=== PATIENT | male | born 1980 | race Caucasian/White ===

== ENCOUNTER 2018-02-03 17:42 | Inpatient (IN) | payer MEDICARE, SELFPAY ==
[2018-02-03 18:53] LABS: #Eosinphils 0.1 thou/uL (0.0-0.7); #Lymphocytes 0.9 thou/uL (1.20-3.40); #Monocytes 1.2 thou/uL (0.11-0.59); %Basophils 0.3 % (0.0-1.0); %Eosinophils 0.7 % (0.0-10.0); Hemoglobin 6.6 g/dL (14.0-18.0); Mean Corpuscular HGB CONC 33.3 g/dL (32.0-36.0); Mean Corpuscular Hemoglobin 30.7 pg (27.0-31.0); Mean Corpuscular Volume 92.1 fL (78.0-98.0); Mean Platelet Volume 8.2 fL (7.4-10.4); Platelet Count 261 thou/uL (130-400); RBC Distribution Width 14.8 % (11.5-14.5); Red Blood Cell (RBC) Count 2.15 mill/uL (4.70-6.10); White Blood Cell (WBC) Count 13.3 thou/uL (4.8-10.8)
[2018-02-03 20:01] LABS: Hemoglobin 6.3 g/dL (14.0-18.0)
[2018-02-03 20:02] LABS: Anion Gap 16 mmol/L (10-20); BUN (Urea Nitrogen) 9 mg/dL (8.9-20.6); Calc. Creatinine Clearance 0 mL/min (70-130); Carbon Dioxide 20 mmol/L (22-29); Chloride 103 mmol/L (98-107); Estimated GFR-MDRD Greater than 90; Glucose 167 mg/dL (70-105); Potassium 3.6 mmol/L (3.5-5.1); Sodium 135 mmol/L (136-145)
[2018-02-03] MEDS ORDERED: Ondansetron HCl/PF 4 MG/2 ML Vial IVP PRN (22:05)
[2018-02-03] MEDS: Mesalamine DR 400 mg Capsule PO SCH (23:18)
[2018-02-03] MEDS: Sodium Chloride 0.9% 1,000 ML IV SCH (23:19)
--- NOTE | 2018-02-04 02:47 | CON ---
DATE OF CONSULTATION: 02/03/2018 REASON FOR CONSULTATION: Probable ulcerative colitis flare. CONSULTING PHYSICIAN: Dr. Sanaz Avina. HISTORY OF PRESENT ILLNESS: The patient is a 37-year-old male with past medical history of obesity a nd ulcerative colitis presenting with complaints of increased abdominal pain, diarrhea, and intermitt ent hematochezia. The patient states that he was diagnosed with ulcerative colitis in 2006 with comp laints of increased abdominal pain, diarrhea, and intermittent occurrences of bright red blood per re ctum. Given increased suspicion for inflammatory bowel disease, he subsequently underwent a colonosc opy with endoscopic and histologic findings consistent with the diagnosis of ulcerative colitis. He was subsequently placed on iron supplementations and sulfasalazine in an attempt to treat his anemia as well as the ulcerative colitis respectively. He was on the sulfasalazine for approximately 6 year s with only a mild to modest improvement in his abdominal pain but did nothing in terms of decreasing his diarrhea frequency or the occurrences of intermittent hematochezia. He states over the last 10 years, he has had approximately 20 different separate occurrences where he has had to have blood martin sfusion as a result of blood loss related to his uncontrolled ulcerative colitis with approximately 6 0 units of PRBCs obtained during that time. He was in his usual state of health with abdominal pain, diarrhea, and hematochezia until approximately 4 days ago when he had a significant increase in the amount of bright red blood per rectum. This was characterized as hematochezia both present on the to ilet paper and within the toilet and occurring outside of episodes of passing stool. With the increa sed blood loss, he to experience increased weakness, especially in his lower extremities, shortness o f breath at rest and dyspnea on exertion which ultimately prompted him to seek healthcare assistance. He was seen in the ER in [place] and noted to have significantly decreased H&H, was given approx imately 1 unit of PRBCs and transferred to [facility] in [place] for further evaluat ion. Upon evaluation in the ER in [facility], he was again noted to have a significantly decreased H&H which was decreased from the levels obtained at the [facility] despite the infusion of 1 unit of PRBCs concerning for active bleeding. Currently, he endorses periumbilical abdominal pain c haracterized as a cramping type sensation radiating to the left and right mid abdominal regions. It is intermittent and will reach a severity of approximately 2-4/10. The pain is worse with increased coughing and sneezing, but better with having a bowel movement or passing flatus. He also endorses i ncreased nausea and vomiting earlier today with approximately 2 discrete episodes of nonbloody emesis . Currently, he denies any fevers, chills, dysphagia, odynophagia, joint pains, new rashes, lumps or bumps or changes in vision. Of note, his last colonoscopy was in with active colitis seen at that time. He was not elizabeth sujey on any medication per patient, despite these findings. REVIEW OF SYSTEMS: A 10-category review of systems was obtained with all responses negative except f or the pertinent positives as listed in the HPI. PAST MEDICAL HISTORY: As per HPI. PAST SURGICAL HISTORY: None. FAMILY HISTORY: Crohn's disease (aunt). SOCIAL HISTORY: Drinks approximately 8-10 ounces of vodka/juice daily. Denies any tobacco or illici t drug usage. OUTPATIENT MEDICATIONS: Multivitamin and herbal supplements or vitamin supplements. ALLERGIES: No known drug allergies. PHYSICAL EXAMINATION: VITAL SIGNS: No vital signs are in the chart and are available for review. GENERAL: Patient was lying in bed in no acute distress. Alert and oriented x4. NECK: Supple. No JVD or scleral icterus noted. CARDIOVASCULAR: Tachycardic rate with regular rhythm. No discernible murmurs, gallops or rubs. LUNGS: Clear to auscultation bilaterally with no discernible wheezes or rales. ABDOMEN: Normoactive bowel sounds, soft, nondistended. Tenderness to palpation in the left upper qu adrant only. EXTREMITIES: No cyanosis, clubbing or edema. LABORATORY DATA: CBC with a white blood cell count of 13.3, hemoglobin 6.6, hematocrit 19.8, platele ts 261. Repeat H&H showed a hemoglobin of 6.3 and hematocrit of 18.5. IMAGING DATA: No current GI imaging is available for review. ASSESSMENT AND PLAN: The patient is a 37-year-old male with past medical history of ulcerative colit is diagnosed in 2006, presenting with increased abdominal pain, diarrhea, and hematochezia consistent his ulcerative colitis flares. Ulcerative colitis flare. The patient was initially diagnosed with ulcerative colitis in 2006 with complaints of increased abdo kishor pain, diarrhea, and intermittent hematochezia. He subsequently underwent colonoscopy with endo scopic and histologic findings consistent with the diagnosis. He was ultimately placed on sulfasalaz ine for control of his ulcerative colitis with minimal to no response to this particular modality. Alex hopkins was on oral sulfasalazine for approximately 6 years with only a mild to modest improvement in abdom inal pain during that time. No further therapies were suggested or initiated for this patient, despi te the fact that during his last colonoscopy in , he had findings consistent with severe act cee colitis. He has a history significant for multiple blood transfusions in the past and as part of his ulcerative colitis and increased hematochezia, that would generate an anemia to the point where he would exhibit dizziness and shortness of breath, although not as severe as on this occasion. Curr ently the most likely reason for his ulcerative colitis flare would be noncompliance with any medical therapy consistent with a treatment regimen for ulcerative colitis. However, infectious etiology ca nnot be ruled out at this time and should be evaluated as a possible source of his increased hematoch ezia/flare. RECOMMENDATIONS: 1. We would continue to trend H&H and transfuse as necessary to maintain an H&H of 11/15. 2. Continue to monitor clinically for signs of active gastrointestinal bleeding. 3. We would obtain infectious stool studies for possible infectious etiology related to his acute fl are. 4. I will place the patient on mesalamine 2.4 grams daily as part of treatment for his ulcerative co litis. 5. I would start the patient on methylprednisolone 40 mg q.i.d., also in relation to treatment for h is acute flare of ulcerative colitis. 6. Ultimately, the patient will need long-term followup for his ulcerative colitis in addition to a repeat colonoscopy to determine the extent of disease and response to treatment. We will continue to follow. Please call with any additional questions.
[2018-02-04 04:14] LABS: #Basophils 0.1 thou/uL (0.0-0.2); #Eosinphils 0.1 thou/uL (0.0-0.7); #Lymphocytes 1.5 thou/uL (1.20-3.40); #Monocytes 0.5 thou/uL (0.11-0.59); #Neutrophils 13.6 thou/uL (1.40-6.50); %Basophils 0.4 % (0.0-1.0); %Eosinophils 0.5 % (0.0-10.0); %Lymphocytes 9.4 % (21.0-51.0); %Monocytes 2.9 % (0.0-10.0); %Neutrophils 86.9 % (42.0-75.0); Hemoglobin 7.7 g/dL (14.0-18.0); Mean Corpuscular HGB CONC 34.3 g/dL (32.0-36.0); Mean Corpuscular Hemoglobin 31.9 pg (27.0-31.0); Mean Platelet Volume 8.8 fL (7.4-10.4); Platelet Count 291 thou/uL (130-400); RBC Distribution Width 13.5 % (11.5-14.5); Red Blood Cell (RBC) Count 2.41 mill/uL (4.70-6.10); White Blood Cell (WBC) Count 15.7 thou/uL (4.8-10.8)
[2018-02-04 04:23] LABS: Anion Gap 14 mmol/L (10-20); BUN (Urea Nitrogen) 13 mg/dL (8.9-20.6); Calc. Creatinine Clearance 158 mL/min (70-130); Calcium 6.8 mg/dL (7.8-10.44); Carbon Dioxide 21 mmol/L (22-29); Chloride 102 mmol/L (98-107); Estimated GFR-MDRD 89; Glucose 224 mg/dL (70-105); Potassium 3.9 mmol/L (3.5-5.1); Sodium 133 mmol/L (136-145)
[2018-02-04] MEDS ORDERED: Diabetic Tussin 200 MG/10 ML UDCUP PO PRN (07:33)
[2018-02-04] MEDS ORDERED: Sodium Chloride 0.65% Nasal 44 ML BOT EA NARE PRN (07:33)
[2018-02-04] MEDS ORDERED: Chloraseptic Spray 180 ml Bottle PO PRN (07:33)
[2018-02-04] MEDS ORDERED: Zolpidem Tartrate 5 MG TAB PO PRN (07:33)
[2018-02-04] MEDS ORDERED: hydrALAZINE 20 MG/ML VIAL SLOW IVP PRN (07:33)
[2018-02-04] MEDS ORDERED: Loratadine 10 MG TAB PO PRN (07:33)
[2018-02-04] MEDS ORDERED: Artificial Tears 18 DROP/0.9 ML EA EYE PRN (07:33)
[2018-02-04] MEDS ORDERED: HYDROcodone/Acetaminophen 5/325 mg Tablet PO PRN (07:33)
[2018-02-04] MEDS ORDERED: Ondansetron ODT 4 MG TAB PO PRN (07:33)
[2018-02-04] MEDS ORDERED: Eucerin (Mineral Oil/Petrolatum,White) 30 gm Jar TOP PRN (07:33)
--- NOTE | 2018-02-04 07:47 | HP ---
PRIMARY CARE PHYSICIAN: Dr. Terry. CODE STATUS: FULL CODE. TIME OF EVALUATION: 8:25 p.m. CHIEF COMPLAINT: Passing blood. HISTORY OF PRESENT ILLNESS: This is a 37-year-old male patient with past medical history of ulcerati ve colitis. Patient continues to have multiple continuous watery and severe and gradually worsening bloody stools, with no clear triggers, no alleviating factors. The patient has a history of chronic ulcerative colitis and upon presentation was found to have a hemoglobin of 6 and that would explain t hese symptoms, receiving two blood transfusions. Hemoglobin repeat was 6. The patient is receiving another 2 units for this reason. REVIEW OF SYSTEMS: Constitutional: No fever or chills or generalized weakness. Respiratory: No co ugh, sputum production or shortness of breath. Cardiovascular: No chest pain, palpitation. Gastroi ntestinal: Patient has no nausea, no vomiting. The patient has diarrhea and melena. 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 Genitourinary: No burning with urination. Extremities: No leg swelling. All other systems are reviewed and negative except for the findings mentioned above. PAST MEDICAL HISTORY: Positive for ulcerative colitis, iron deficiency anemia. PAST SURGICAL HISTORY: No surgical history. PSYCHIATRIC HISTORY: No psychiatric history. SOCIAL HISTORY: Patient drinks every day, less than 5 drinks per day. Patient smokes on a daily bas is. FAMILY HISTORY: Reviewed and noncontributory to current presentation. DRUG ALLERGIES: No known drug allergies. REPORTED MEDICATIONS: Atenolol, Bifera, K-Dur, magnesium. PHYSICAL EXAMINATION: VITAL SIGNS: On presentation, blood pressure 130/81 with heart rate 124, respiratory rate of 22, tem perature 98.1, oxygen saturation is 99% on room air. GENERAL APPEARANCE: Patient is alert, oriented, weak, no acute distress. HEENT: Eyes, normal conjuctivae. Pale mucosa. Anicteric. NECK: No JVD. RESPIRATORY: Bilateral air entry. No rales, no wheezing. Symmetric expansion. CARDIOVASCULAR: Normal rate, regular rhythm. No murmurs, gallop or edema. ABDOMEN: Soft, normal bowel sounds. MUSCULOSKELETAL: Baseline range of motion and strength. No tenderness. SKIN: Warm and intact. No pallor, no rash, no redness. Peripheral pulses are present. Capillary r efills seem to be intact. NEUROLOGIC: No evidence of any new focal weakness. Baseline speech. Cranial nerves seem to be inta ct. PSYCHIATRIC: The patient is in good. No anxiety. Oriented, optimal judgment. LABORATORY DATA: Reviewed. White count 13.3, hemoglobin 6.3, platelet count 161. Sodium 135, potas sium 3.6, chloride 103, carbon dioxide 20, anion gap 16, BUN 9, creatinine 0.8, GFR greater than 90, glucose 167, calcium 7.0. ASSESSMENT AND PLAN: The patient will be placed in the hospital with the following medical problems, 1. Flare of inflammatory bowel disease, patient will need antibiotics, rest of treatment as per GI, we will start mesalamine and steroids, will follow recommendations. 2. Acute blood loss, history of ulcerative colitis, patient presented with symptomatic anemia, also had significant dark brown, nonbloody stools, possible melena. The patient received blood transfusio n; after second blood transfusion, hemoglobin was still 6 for that reason, going to IMCU. 3. Possible underlying sepsis. Patient has tachycardia, leukocytosis, possible ulcerative colitis o r infection. We will follow GI recommendations for treatment. 4. Hyperglycemia with glucose 167, this is likely due to acute distress. We will monitor, we will t reat accordingly. 5. Hyponatremia, sodium 135. This is minimal, we will monitor Coumadin. No need for an acute inter vention at this point other than IV fluids. 6. Hypovolemia. The patient had blood loss. We will hydrate and transfuse as needed to give hemody namics. We will monitor in IMCU. 7. Deep venous thrombosis prophylaxis.
[2018-02-04 08:32] LABS: Hemoglobin 5.9 g/dL (14.0-18.0)
[2018-02-04] MEDS: Famotidine 20 MG TAB PO SCH ×2 (09:59→21:03)
[2018-02-04] MEDS: Sodium Chloride 0.9% 1,000 ML IV SCH ×2 (09:59→23:07)
[2018-02-04] MEDS: Mesalamine DR 400 mg Capsule PO SCH ×3 (09:59→21:03)
--- NOTE | 2018-02-04 10:01 | PDOC.PN ---
- Subjective Encounter Start Date: 02/04/18 Encounter Start Time: 08:00 -: old records requested/rev Patient seen and examined. No new complaints. No overnight events again his Hb dropped, - Objective Resuscitation Status: Resuscitation Status FULL:Full Resuscitation MAR Reviewed: Yes Vital Signs & Weight: Vital Signs (12 hours) Temp Pulse Resp BP Pulse Ox 02/04/18 07:21 98.0 F 99 15 107/68 99 02/04/18 05:40 99.5 F 100 18 115/67 100 02/04/18 01:50 98.7 F 102 H 20 129/71 99 02/03/18 23:53 99.5 F 99 18 105/49 L 100 02/03/18 23:35 99.6 F 102 H 18 106/65 100 02/03/18 23:24 99.3 F 106 H 16 110/67 100 Weight Weight 232 lb 3 oz I&O: 02/03/18 02/04/18 02/05/18 06:59 06:59 06:59 Intake Total 1200 Output Total 1000 Balance 200 Result Diagrams: 02/04/18 08:04 02/04/18 03:44 EKG Reviewed by me: Yes (nsr) Phys Exam - Physical Examination Constitutional: NAD HEENT: PERRLA, moist MMs, sclera anicteric Neck: no JVD, supple Respiratory: no wheezing, no rales, no rhonchi Cardiovascular: RRR, no significant murmur, no rub Gastrointestinal: soft, non-tender, no distention, positive bowel sounds Musculoskeletal: no edema, pulses present Neurological: non-focal, normal sensation Lymphatic: no nodes Psychiatric: normal affect, A&O x 3 Skin: no rash, normal turgor Dx/Plan (1) Anemia due to acute blood loss Code(s): D62 - ACUTE POSTHEMORRHAGIC ANEMIA Status: Acute (2) Exacerbation of ulcerative colitis Code(s): K51.90 - ULCERATIVE COLITIS, UNSPECIFIED, WITHOUT COMPLICATIONS Status: Acute (3) Obesity (BMI 30.0-34.9) Code(s): E66.9 - OBESITY, UNSPECIFIED Status: Chronic (4) Tobacco chew use Code(s): Z72.0 - TOBACCO USE Status: Chronic - Plan cont current plan of care * will transfuse 2 more unit of PRBC * continue IV solumedrol and meselamine * monitor H & H * GI on case * medication reviewed as below * symptomatic treatment. Review of Systems - Review of Systems Eyes: negative: Pain, Vision Change, Conjunctivae Inflammation, Eyelid Inflammation, Redness, Other ENT: negative: Ear Pain, Ear Discharge, Nose Pain, Nose Discharge, Nose Congestion, Mouth Pain, Mouth Swelling, Throat Pain, Throat Swelling, Other Respiratory: negative: Cough, Dry, Shortness of Breath, Hemoptysis, SOB with Excertion, Pleuritic Pain, Sputum, Wheezing Cardiovascular: negative: chest pain, palpitations, orthopnea, paroxysmal nocturnal dyspnea, edema, light headedness, other Gastrointestinal: Abdominal Pain, Hematochezia. negative: Nausea, Vomiting, Diarrhea, Constipation, Melena, Other Genitourinary: negative: Dysuria, Frequency, Incontinence, Hematuria, Retention , Other Musculoskeletal: negative: Neck Pain, Shoulder Pain, Arm Pain, Back Pain, Hand Pain, Leg Pain, Foot Pain, Other Skin: negative: Rash, Lesions, Jose, Bruising, Other - Medications/Allergies Allergies/Adverse Reactions: Allergies Allergy/AdvReac Type Severity Reaction Status Date / Time No Known Allergies Allergy Verified 02/03/18 21:55 Medications: Current Medications Acetaminophen (Tylenol) 650 mg PO Q4H PRN PRN Reason: Headache/Fever/Mild Pain (1-3) Hydrocodone Bitart/Acetaminophen ([place] 5/325) 1 tab PO Q4H PRN PRN Reason: Moderate Pain (4-6) Artificial Tears (Tears Naturale) 0 drop EA EYE PRN PRN PRN Reason: Dry Eyes Famotidine (Pepcid) 20 mg PO BID [facility] Last Admin: 02/04/18 09:59 Dose: 20 mg Guaifenesin (Robitussin Sf) 200 mg PO Q4H PRN PRN Reason: Cough Hydralazine HCl (Apresoline) 10 mg SLOW IVP Q4H PRN PRN Reason: Systolic BP > 180 Sodium Chloride (Normal Saline 0.9%) 1,000 mls @ 70 mls/hr IV .[id number] [facility] Last Admin: 02/04/18 09:59 Dose: Not Given Loratadine (Claritin) 10 mg PO DAILYPRN PRN PRN Reason: Sinus Symptoms Mesalamine (Delzicol Dr) 800 mg PO TID [facility] Last Admin: 02/04/18 09:59 Dose: 800 mg Methylprednisolone Sodium Succinate (Solu-Medrol) 40 mg IVP Q6HR [facility] Last Admin: 02/04/18 05:44 Dose: 40 mg Mineral Oil/White Petrolatum (Eucerin Cream) 0 gm TOP BIDPRN PRN PRN Reason: Dry Skin Ondansetron HCl (Zofran) 4 mg IVP Q6H PRN PRN Reason: Nausea/Vomiting Ondansetron HCl (Zofran Odt) 4 mg PO Q6H PRN PRN Reason: Nausea/Vomiting Phenol (Chloraseptic Ozone 180 Ml Bot) 0 ml PO PRN PRN PRN Reason: Sore Throat Sodium Chloride ([place] Nasal Ozone 0.65%) 0 ml EA NARE QIDPRN PRN PRN Reason: Nasal Congestion Zolpidem Tartrate (Ambien) 5 mg PO HSPRN PRN PRN Reason: Insomnia
--- NOTE | 2018-02-04 12:35 | PRG ---
DATE OF SERVICE: 02/04/2018 REASON FOR CONSULTATION: Probable ulcerative colitis flare. SUBJECTIVE: Overnight, the patient continued to have grossly bloody bowel movements that was associa cory with a continued drop in his H&H. He was subsequently transfused an additional 2 units of PRBCs, but continues to have mild shortness of breath as well as tachycardia on physical exam. Currently d enies any nausea, vomiting, fevers, and chills. He states that his abdominal pain is unchanged, impr debbi from previous but was low severity to begin with. OBJECTIVE: VITAL SIGNS: Temperature 98.2, pulse 105, blood pressure /71, respiratory rate 16, satting 98% on room air. GENERAL: The patient is lying in bed, in no acute distress. Alert and oriented x4. CARDIOVASCULAR: Tachycardic rate with regular rhythm. No discernible murmurs, gallops or rubs. LUNGS: Clear to auscultation bilaterally. ABDOMEN: Normoactive bowel sounds, soft, nondistended. Tenderness to palpation in the left upper qu adrant only. EXTREMITIES: No cyanosis, clubbing or edema. LABORATORY DATA: CBC with an hemoglobin of 5.9, hematocrit 17.5. Chemistry with a sodium of 133, po tassium 3.9, chloride 102, CO2 21, BUN 13, creatinine 0.96, glucose 224. IMAGING DATA: No current GI imaging is available for review. ASSESSMENT AND PLAN: The patient is a 37-year-old male with past medical history of ulcerative colit is diagnosed in 2006, presenting with increased abdominal pain, diarrhea, and hematochezia consistent with ulcerative colitis flare. Ulcerative colitis flare: The patient was initially diagnosed with ulcerative colitis in 2006 with c omplaints of increased abdominal pain, diarrhea, and intermittent hematochezia which has been further echoed during this admission with very similar symptoms. He was placed on oral sulfasalazine for ap proximately 6 years and, per review of records, had been mildly to moderately controlled, but per pat ient states that he had not been controlled at all. Further therapies were suggested per chart revie w, but never initiated. His most recent colonoscopy was performed in with findings consist ent with severe active colitis. During this admission, he continues to have grossly bloody bowel mov ements that have required the transfusion of multiple units of blood consistent with a diagnosis of u lcerative colitis flare with severe active colitis. Infectious workup thus far has been negative. RECOMMENDATIONS: 1. We would continue to trend H&H and transfuse as necessary to maintain an H&H of 11/15. 2. Continue to monitor clinically for signs of active gastrointestinal bleeding. 3. We would continue mesalamine 2.4 grams daily as part of treatment for his ulcerative colitis. 4. We would continue methylprednisolone 40 mg 4 times daily as part of steroid therapy for ulcerativ e colitis flare. 5. If the patient does not show any improvement in his clinical status over the next 24 hours, I wou ld consider a colonoscopy for evaluation of the current clinical disease and/or other etiology contri buting to his hematochezia. We will continue to follow. Please call with any additional questions.
[2018-02-04 12:37] LABS: Hemoglobin 6.3 g/dL (14.0-18.0)
[2018-02-04 19:19] LABS: Hemoglobin 7.9 g/dL (14.0-18.0)
--- NOTE | 2018-02-05 00:02 | CON ---
DATE OF CONSULTATION: 02/04/2018 SERVICE: Pulmonary Medicine. REASON FOR CONSULTATION: IMCU patient. HISTORY OF PRESENT ILLNESS: Patient is a 37-year-old white male with past medical history significant for ulcerative colitis. He was in his usual state of health when he started passing bright red blood per rectum. In the Emergency Department, he was found to have a severe anemia. Since he has been in the hospital, he will have a bowel movement every 3-4 hours. With each bowel movement, he is grossly bloody material coming out of his bottom. He denies any abdominal discomfort, fevers, chills, nausea or vomiting. He does endorse symptoms consistent with obstructive sleep apnea. He has gotten 5 units of blood today. His hemoglobins are being monitored. Otherwise, he is in his usual state of health and denies any fevers, chills, nausea, vomiting or chest discomfort. He coughs routinely but this is at baseline currently. He does endorse gastroesophageal reflux disease. PAST MEDICAL HISTORY: 1. Ulcerative colitis. 2. Iron deficiency anemia. 3. Gastroesophageal reflux disease. 4. Obstructive sleep apnea, suspected. PAST SURGICAL HISTORY: None. SOCIAL HISTORY: Negative for tobacco or illicit drug use. He drinks less than 5 beers per day, but drinks almost every single day. He denies any exposure to chemicals, dust asbestos or tuberculosis. FAMILY HISTORY: Noncontributory. ALLERGIES: No known drug allergies. MEDICATIONS: List of his inpatient medications was reviewed. No specific updates were made at this time. REVIEW OF SYSTEMS: General, head, ears, eyes, nose, throat, cardiovascular, respiratory, GI, , musculoskeletal, neurologic and skin is negative except as mentioned in the HPI. PHYSICAL EXAMINATION: VITAL SIGNS: Afebrile, pulse 112, blood pressure 138/92, respirations 14, saturation 100% on room air. GENERAL: The patient is awake, alert, no apparent distress. LUNGS: Excellent air entry. There is no prolonged expiratory phase, wheezing, rhonchi, or crackles present. HEART: Normal rate, regular. ABDOMEN: Soft, nontender, nondistended. Bowel sounds are positive. MUSCULOSKELETAL: No cyanosis or clubbing. There is no pitting in the bilateral lower extremities. NEUROLOGIC: Grossly nonfocal. LABORATORY DATA: Hemoglobin 7.9, most recently checked. He got as low as 5.9. He received a total of 5 units of blood. Basic metabolic profile is unremarkable otherwise. Calcium 6.8. C. diff antigen and toxin is unremarkable. Rapid parasite screen is negative. Lactoferrin is positive, Campylobacter assay and Shiga toxin are unremarkable. Stool culture is unremarkable. ASSESSMENT: 1. Ulcerative colitis with flare. 2. Acute blood loss anemia. 3. Obstructive sleep apnea, suspected DISCUSSION AND PLAN: We will continue to trend his hemoglobin through time. Anti-inflammatory drugs per GI. We will transfuse him to keep his hemoglobin above 7. He will remain in the ICU until some of the bleeding starts to slow down a touch. Pulmonary or Critical Care will continue to follow in this location. 70 minutes have been devoted to this patient in various activities. I personally reviewed all imaging studies and laboratory data noted within this document. For fifty percent of this time, I was interacting with the patient at the bedside or coordinating care with the care team. For the remainder of the time I was immediately available to the patient in the hospital unit. SERENE
[2018-02-05 00:15] LABS: Hemoglobin 6.6 g/dL (14.0-18.0)
[2018-02-05] MEDS: Acetaminophen 325 MG TAB PO PRN (01:51)
[2018-02-05 07:38] LABS: #Eosinphils 0.1 thou/uL (0.0-0.7); #Lymphocytes 0.9 thou/uL (1.20-3.40); #Monocytes 1.3 thou/uL (0.11-0.59); %Eosinophils 0.5 % (0.0-10.0); %Lymphocytes 5.1 % (21.0-51.0); %Monocytes 7.4 % (0.0-10.0); Hemoglobin 6.1 g/dL (14.0-18.0); Mean Corpuscular HGB CONC 33.9 g/dL (32.0-36.0); Mean Corpuscular Hemoglobin 30.5 pg (27.0-31.0); Mean Platelet Volume 8.3 fL (7.4-10.4); Platelet Count 271 thou/uL (130-400); RBC Distribution Width 13.3 % (11.5-14.5); Red Blood Cell (RBC) Count 1.99 mill/uL (4.70-6.10); White Blood Cell (WBC) Count 17.3 thou/uL (4.8-10.8)
[2018-02-05 08:04] LABS: ALT (SGPT) 20 U/L (8-55); AST (SGOT) 23 U/L (5-34); Albumin 2.1 g/dL (3.5-5.0); Alkaline Phosphatase 70 U/L (40-150); Anion Gap 12 mmol/L (10-20); BUN (Urea Nitrogen) 27 mg/dL (8.9-20.6); Calc. Creatinine Clearance 104 mL/min (70-130); Calcium 5.9 mg/dL (7.8-10.44); Carbon Dioxide 20 mmol/L (22-29); Chloride 99 mmol/L (98-107); Estimated GFR-MDRD 54; Globulin 1.5 g/dL (2.4-3.5); Glucose 225 mg/dL (70-105); Potassium 3.8 mmol/L (3.5-5.1); Protein, Total 3.6 g/dL (6.0-8.3); Sodium 127 mmol/L (136-145)
[2018-02-05] MEDS: Mesalamine DR 400 mg Capsule PO SCH ×3 (08:52→20:06)
[2018-02-05] MEDS: Famotidine 20 MG TAB PO SCH ×2 (08:52→20:06)
--- NOTE | 2018-02-05 09:56 | PDOC.PN ---
- Subjective Encounter Start Date: 02/05/18 Encounter Start Time: 09:00 pt still has ongoing hematochezia, he denies any pain, he denies dyspnea, but he had no sleep and feels tired, so far he is given 5 units of PRBC and again today Hb still 6 - Objective Resuscitation Status: Resuscitation Status FULL:Full Resuscitation MAR Reviewed: Yes Vital Signs & Weight: Vital Signs (12 hours) Temp Pulse Pulse Resp BP BP Pulse Ox 02/05/18 07:27 98.0 F 96 135/89 100 02/05/18 04:45 98.2 F 114 H 18 139/86 97 02/05/18 03:55 98.2 F 114 H 18 139/86 02/05/18 01:59 98.5 F 108 H 18 111/77 02/05/18 01:49 99.2 F 116 H 18 116/78 02/05/18 00:03 97.9 F 112 H 16 140/96 H 99 Weight Admit Weight 232 lb 3 oz Weight 235 lb 12.8 oz Most Recent Monitor Data Heart Rate from ECG 112 NIBP 138/92 Respiration from ECG 14 I&O: 02/04/18 02/05/18 02/06/18 06:59 06:59 06:59 Intake Total 1200 1942 Output Total 1000 2200 Balance 200 -258 Result Diagrams: 02/05/18 07:21 02/05/18 07:21 EKG Reviewed by me: Yes (nsr) Phys Exam - Physical Examination Constitutional: NAD HEENT: PERRLA, sclera anicteric pallor+ Neck: no JVD, supple Respiratory: no wheezing, no rales, no rhonchi Cardiovascular: RRR, no significant murmur, no rub Gastrointestinal: soft, non-tender, no distention, positive bowel sounds Musculoskeletal: no edema, pulses present Neurological: non-focal, normal sensation, moves all 4 limbs Lymphatic: no nodes Psychiatric: normal affect, A&O x 3 Skin: no rash Dx/Plan (1) Exacerbation of ulcerative colitis Code(s): K51.90 - ULCERATIVE COLITIS, UNSPECIFIED, WITHOUT COMPLICATIONS Status: Acute (2) Anemia due to acute blood loss Code(s): D62 - ACUTE POSTHEMORRHAGIC ANEMIA Status: Acute (3) Obesity (BMI 30.0-34.9) Code(s): E66.9 - OBESITY, UNSPECIFIED Status: Chronic (4) Tobacco chew use Code(s): Z72.0 - TOBACCO USE Status: Chronic (5) Hyponatremia Code(s): E87.1 - HYPO-OSMOLALITY AND HYPONATREMIA Status: Acute (6) Acute kidney failure Status: Acute (7) Hypocalcemia Code(s): E83.51 - HYPOCALCEMIA Status: Acute Comment: corrected calcium for albumin today is 7.4 - Plan cont current plan of care * transfuse to keep Hb >7 * add calcium with vitamin D 1 tab po bid, his corrected calcium is 7.4 * GI on case * unsure he needs any surgical consult or not, he may need more time for severe flare up, continue solumedrol and mesalamine as ordered * medication reviewed as below * symptomatic treatment * increase IVF at 125 ml per hour * will monitor in IMCU. Review of Systems - Review of Systems Constitutional: weakness. negative: fever, chills, sweats, malaise, other ENT: negative: Ear Pain, Ear Discharge, Nose Pain, Nose Discharge, Nose Congestion, Mouth Pain, Mouth Swelling, Throat Pain, Throat Swelling, Other Respiratory: negative: Cough, Dry, Shortness of Breath, Hemoptysis, SOB with Excertion, Pleuritic Pain, Sputum, Wheezing Cardiovascular: negative: chest pain, palpitations, orthopnea, paroxysmal nocturnal dyspnea, edema, light headedness, other Gastrointestinal: Hematochezia. negative: Nausea, Vomiting, Abdominal Pain, Diarrhea, Constipation, Melena, Other Genitourinary: negative: Dysuria, Frequency, Incontinence, Hematuria, Retention , Other Musculoskeletal: negative: Neck Pain, Shoulder Pain, Arm Pain, Back Pain, Hand Pain, Leg Pain, Foot Pain, Other Skin: negative: Rash, Lesions, Jose, Bruising, Other - Medications/Allergies Allergies/Adverse Reactions: Allergies Allergy/AdvReac Type Severity Reaction Status Date / Time No Known Allergies Allergy Verified 02/03/18 21:55 Medications: Current Medications Acetaminophen (Tylenol) 650 mg PO Q4H PRN PRN Reason: Headache/Fever/Mild Pain (1-3) Last Admin: 02/05/18 01:51 Dose: 650 mg Hydrocodone Bitart/Acetaminophen ([place] 5/325) 1 tab PO Q4H PRN PRN Reason: Moderate Pain (4-6) Artificial Tears (Tears Naturale) 0 drop EA EYE PRN PRN PRN Reason: Dry Eyes Calcium/Vitamin D (Caltrate 600 + Vit D) 1 tab PO BID-[facility] Famotidine (Pepcid) 20 mg PO BID [facility] Last Admin: 02/05/18 08:52 Dose: 20 mg Guaifenesin (Robitussin Sf) 200 mg PO Q4H PRN PRN Reason: Cough Hydralazine HCl (Apresoline) 10 mg SLOW IVP Q4H PRN PRN Reason: Systolic BP > 180 Sodium Chloride (Normal Saline 0.9%) 1,000 mls @ 70 mls/hr IV .[id number] [facility] Last Admin: 02/04/18 23:07 Dose: 1,000 mls Loratadine (Claritin) 10 mg PO DAILYPRN PRN PRN Reason: Sinus Symptoms Mesalamine (Delzicol Dr) 800 mg PO TID [facility] Last Admin: 02/05/18 08:52 Dose: 800 mg Methylprednisolone Sodium Succinate (Solu-Medrol) 40 mg IVP Q6HR [facility] Last Admin: 02/05/18 05:56 Dose: 40 mg Mineral Oil/White Petrolatum (Eucerin Cream) 0 gm TOP BIDPRN PRN PRN Reason: Dry Skin Ondansetron HCl (Zofran) 4 mg IVP Q6H PRN PRN Reason: Nausea/Vomiting Last Admin: 02/05/18 09:02 Dose: 4 mg Ondansetron HCl (Zofran Odt) 4 mg PO Q6H PRN PRN Reason: Nausea/Vomiting Phenol (Chloraseptic [place] 180 Ml Bot) 0 ml PO PRN PRN PRN Reason: Sore Throat Sodium Chloride ([place] Nasal [place] 0.65%) 0 ml EA NARE QIDPRN PRN PRN Reason: Nasal Congestion Zolpidem Tartrate (Ambien) 5 mg PO HSPRN PRN PRN Reason: Insomnia
--- NOTE | 2018-02-05 12:24 | PRG ---
DATE OF SERVICE: 02/05/2018 SERVICE: Pulmonary Medicine. INTERVAL HISTORY: The patient is doing really well from a respiratory standpoint. He denies any cur rent chest pain, fevers, chills, nausea or vomiting. He continues to have bloody bowel movements. T hey have not really slow down or tapered off. We have another hemoglobin on him this morning and it is continuing to trend downward. PHYSICAL EXAMINATION: VITAL SIGNS: Afebrile, pulse 96, blood pressure 110/88, respirations 18, saturation 99% on room air. GENERAL: The patient is awake, alert, in no apparent distress. LUNGS: Excellent air entry without prolonged expiratory phase or wheezing. HEART: Normal rate, regular. ABDOMEN: Soft, nontender, nondistended. Bowel sounds are positive. MUSCULOSKELETAL: No cyanosis or clubbing. No pitting in the bilateral lower extremities. NEUROLOGIC: Grossly nonfocal. LABORATORY DATA: WBC 17.3, hemoglobin 6.1 and down trending, platelets 271,000. Calcium 5.9 and glu cose 225. Liver function studies are unremarkable, creatinine up trending to 1.48, BUN 27. Basic me tabolic profile is otherwise unremarkable. ASSESSMENT: 1. Ulcerative colitis with acute flare. 2. Acute blood loss anemia, status post 5 units of blood transfusion. 3. Obstructive sleep apnea, suspected. DISCUSSION AND PLAN: I will transfuse 2 more units of blood and we will give a couple amps of calciu m. We will increase maintenance fluids. We will give him 500 mL bolus of IV fluid as well. The pat ient will remain in the IMCU until the bleeding tapers off. He no longer requires frequent blood tra nsfusions. If this continues for the next couple of days, a colectomy may need to be considered, but for the time being, we will continue supportive measures.
[2018-02-05] MEDS: Calcium Gluc 4.6 MEQ/10 ML (100 MG/ML) SLOW IVP SCH ×2 (12:30→15:38)
--- NOTE | 2018-02-05 13:07 | PRG ---
DATE OF SERVICE: 02/05/2018 REASON FOR CONSULTATION: Probable ulcerative colitis flare, hematochezia. SUBJECTIVE: Overnight, the patient continued to have grossly bloody bowel movement that was associat ed with a continued drop in his hemoglobin and hematocrit. However, upon further interview with the patient, he says that the frequency has somewhat lessened when compared to on admission and he states that his abdominal pain has improved somewhat, but otherwise his symptoms remain relatively unchange d. At the time of the interview, he was getting transfused with initial 2 units of PRBCs and he cont inues to have mild shortness of breath as well as tachycardia on physical exam. Currently he denies any nausea, vomiting, fevers, chills, melenic stools or hematemesis. OBJECTIVE: VITAL SIGNS: Temperature 98, pulse 112, blood pressure 98/76, respiratory rate 20, satting 100% on r oom air. GENERAL: The patient was sitting at bedside in no acute distress. Alert and oriented x4. CARDIOVASCULAR: Tachycardic rate with regular rhythm. RESPIRATORY: Clear to auscultation bilaterally. ABDOMEN: Normoactive bowel sounds, soft, nondistended. Tenderness to palpation in the mid epigastri c/left quadrant. EXTREMITIES: No cyanosis, clubbing or edema. LABORATORY DATA: CBC with white blood cell count of 17.3, hemoglobin 6.1, hematocrit 17.9, platelets 271. Chemistry with sodium of 127, potassium 3.8, chloride 99, CO2 20, BUN 27, creatinine 1.48, glu cose 225, AST 23, ALT 20, alkaline phosphatase 70, total bilirubin 1.0, albumin 2.1. IMAGING DATA: No current GI imaging is available for review. ASSESSMENT AND PLAN: The patient is a 37-year-old male with past medical history of ulcerative colit is diagnosed in 2006, presenting with increased abdominal pain, diarrhea, and significant hematochezi a consistent with ulcerative colitis flare. ULCERATIVE COLITIS FLARE: The patient was initially diagnosed with ulcerative colitis in 2006 with c omplaints of increased abdominal pain, diarrhea, and intermittent hematochezia which he states are si milar during this admission. He also adds that he has had multiple bouts in the past of increased he matochezia that had required hospitalization and the transfusion of multiple units of blood. He was placed on oral sulfasalazine for approximately 6 years after his diagnosis, but per review of his rec ords and per conversation with the patient, his symptoms were only mildly controlled while on this re gimen. Further therapies were suggested per chart review, but never initiated. Per his most recent colonoscopy performed in , the findings were consistent with severe active colitis. At this point in time, given the degree of blood loss during this admission, I would agree with this particu lar diagnosis in terms of severe active colitis causing significant hematochezia. However, at this p oint it is unknown as to the hematochezia is caused by an ulcerative colitis flare versus an ulcerati on that has eroded into a blood vessel versus a diverticular bleed versus an arteriovenous malformati on that could be contributing to his grossly bloody bowel movements; therefore endoscopic evaluation is indicated. RECOMMENDATIONS: 1. We would continue to trend hemoglobin and hematocrit and transfuse as necessary to maintain hemog lobin and hematocrit of 7/21. 2. Continue to monitor clinically for signs of active gastrointestinal bleeding. 3. Continue mesalamine 2.4 grams daily as part of treatment for ulcerative colitis. 4. We would continue methylprednisolone 40 mg 4 times daily as part of steroid therapy for ulcerativ e colitis flare. 5. We will plan for colonoscopy tomorrow morning. Patient can have a clear liquid diet today with G oLYTELY prep and n.p.o. at midnight in preparation for the procedure. 6. If the colonoscopy shows diffuse pancolitis with increased bleeding with no discernible site for intervention and he is not responding to steroid therapy over the next 48-72 hours, General Surgery e valuation with possible surgical resection could be considered. We will continue to follow. Please call with any questions.
[2018-02-05 13:19] LABS: Hemoglobin 6.6 g/dL (14.0-18.0)
[2018-02-05] MEDS: Sodium Chloride 0.9% 1,000 ML IV SCH ×2 (14:43→19:33)
--- NOTE | 2018-02-05 16:15 | PQF ---
CLINICAL DOCUMENTATION IMPROVEMENT CLARIFICATION FORM: ICD-10 Updated PLEASE DO AN ADDENDUM TO THE PROGRESS NOTE WITH ANY DOCUMENTATION UPDATES OR ADDITIONS AND CARRY THROUGH TO DC SUMMARY. THANK YOU. DATE: 02/05/18 ATTN: DR. GAMEZ Please exercise your independent, professional judgment in responding to the clarification form. Clinical indicators are provided on the bottom of this form for your review Please check appropriate box(es): [ ] Sepsis due to: (Pna, UTI, gangrenous gall bladder, etc.) Due to: [ ] Device (please specify) [ ] Implant [ ] Graft [ ] Infusion [ ] SIRS due to non-infectious process (please specify etiology) [ ] with organ dysfunction [ ] without organ dysfunction [ ] Severe sepsis with acute organ dysfunction of: (Examples: respiratory failure, encephalopathy, acute kidney failure, other) [ ] Septic Shock [ ] Localized infection without sepsis [ x ] Other diagnosis _see progress notes [ ] Unable to determine In addition, please specify: Present on Admission (POA): [ ] Yes [ x ] No [ ] Unable to determine For continuity of documentation, please document condition throughout progress notes and discharge summary. Thank You. CLINICAL INDICATORS - SIGNS / SYMPTOMS / LABS H&P: "POSSIBLE UNDERLYING SEPSIS" ER NOTE: PULSE 124 RR 22 WBC 02/05: 17.3 RISKS: INFLAMMATORY BOWEL DISEASE TREATMENT: IMCU MONITORING STOOL CULTURES BLOOD TRANSFUSION (02/05) IV FLUIDS ORDERED 02/05 (This form is maintained as a part of the permanent medical record) 2014 [employer]. All Rights Reserved SANDRA [email or web address] Office: [phone] [facility]
[2018-02-05] MEDS ORDERED: GoLYTELY 4,000 ml Bottle PO SCH (17:00)
[2018-02-05] MEDS: Calcium Carbonate + Vit D 1 TAB PO SCH (17:19)
[2018-02-05 18:24] LABS: Hemoglobin 9.8 g/dL (14.0-18.0)
[2018-02-06] MEDS ORDERED: Metoprolol Tartrate 5 MG/5 ML VIAL ONE (03:25)
[2018-02-06] MEDS ORDERED: Diltiazem HCl 125 MG, Admixture Fee 1 EACH in Sodium Chloride 0.9% 100 ML IVPB SCH (04:00)
[2018-02-06] MEDS ORDERED: Digoxin 0.5 MG/2 ML AMP ONE (09:03)
[2018-02-06] MEDS: Sodium Chloride 0.9% 1,000 ML IV SCH ×2 (11:31→11:42)
[2018-02-06] MEDS: Calcium Carbonate + Vit D 1 TAB PO SCH ×2 (11:39→17:59)
[2018-02-06] MEDS: Mesalamine DR 400 mg Capsule PO SCH ×3 (11:39→21:14)
[2018-02-06] MEDS: Famotidine 20 MG TAB PO SCH ×2 (11:39→21:14)
--- NOTE | 2018-02-06 11:46 | PRG ---
DATE OF SERVICE: 02/06/2018 REASON FOR CONSULTATION: Ulcerative colitis flare, hematochezia. SUBJECTIVE: Yesterday morning, the patient continued to have grossly bloody bowel movements, but at approximately 5:00 p.m. yesterday evening, had complete cessation of his hematochezia with no further recurrence since then. He was transfused approximately 2 units of PRBCs yesterday with repeat H&H p ending at this time. Otherwise, he states that his abdominal pain is relatively unchanged, but he co ntinues to have mild shortness of breath and mild dizziness upon position change from either lying to sitting or sitting to standing positions. Currently, he denies any nausea, vomiting, fevers, chills , melenic stools, hematemesis or hematochezia. OBJECTIVE: VITAL SIGNS: Temperature 97.4, pulse 59, blood pressure 106/76, respiratory rate 15, satting 99% on room air. GENERAL: The patient was sitting at bedside, in no acute distress. Alert and oriented x4. CARDIOVASCULAR: Tachycardic rate with possible atrial fibrillation on EKG. RESPIRATORY: Clear to auscultation bilaterally. ABDOMEN: Normoactive bowel sounds, soft, nondistended. Tenderness to palpation in the mid epigastri c/left upper quadrant. EXTREMITIES: No cyanosis, clubbing or edema. LABORATORY DATA: No current laboratory that is available for review. IMAGING DATA: No current GI imaging is available for review. ASSESSMENT AND PLAN: The patient is a 37-year-old male with past medical history of ulcerative colit is diagnosed in 2006, presenting with a probable ulcerative colitis flare. Ulcerative colitis flare. The patient was initially diagnosed with ulcerative colitis in 2006 with s imilar presenting symptoms as with this hospitalization. He had been relatively uncontrolled for the last 3-4 years while on no therapy for his ulcerative colitis. Per his most recent colonoscopy perf ormed around 2013, the findings were consistent with severe active colitis. Given his admission with significant hematochezia, it seemed more consistent with an ulcerative colitis flare. Infectious Di sease workup was performed during this admission and was all negative for an infectious etiology of h is hematochezia; however, he continued to have grossly bloody bowel movements and did have required a pproximately 6 units of PRBCs during this hospitalization. Currently, the differential include sever e active ulcerative colitis versus an ulceration that has eroded into blood vessels versus diverticul ar bleed versus arteriovenous malformation that could be contributing to his significant bloody bowel movements. He was due for colonoscopy later this morning, but did exhibit atrial fibrillation over the last 24 hours requiring significant interventions and may preclude endoscopic intervention at thi s time. RECOMMENDATIONS: 1. We would continue to trend H&H and transfuse as necessary to maintain an H&H of 7/21. 2. Continue to monitor clinically for signs of active gastrointestinal bleeding. 3. Continue mesalamine 2.4 grams daily as part of treatment for ulcerative colitis. 4. Continue methylprednisolone 40 mg 4 times daily as part of steroid therapy for ulcerative colitis flare. 5. We would consult Cardiology for evaluation of the patient prior to endoscopic intervention. 6. The patient's colonoscopy is currently on hold. We will keep the patient n.p.o. for now in case it can be done or later today. If not, then we would re-prep for tomorrow morning. 7. If the colonoscopy shows diffuse pancolitis with increased mucosal bleeding and no discernible si te or focal site for intervention and he is not responding to steroid therapy, then General Surgery e valuation for possible surgical resection could be considered. We will continue to follow. Please call with any questions.
[2018-02-06 12:47] LABS: Anion Gap 12 mmol/L (10-20); BUN (Urea Nitrogen) 34 mg/dL (8.9-20.6); Calc. Creatinine Clearance 111 mL/min (70-130); Calcium 6.4 mg/dL (7.8-10.44); Carbon Dioxide 23 mmol/L (22-29); Chloride 97 mmol/L (98-107); Estimated GFR-MDRD 58; Magnesium 1.1 mg/dL (1.6-2.6); Phosphorus 4.8 mg/dL (2.3-4.7); Potassium 3.6 mmol/L (3.5-5.1)
--- NOTE | 2018-02-06 12:49 | PRG ---
DATE OF SERVICE: 02/06/2018 SERVICE: Pulmonary Medicine INTERVAL HISTORY: The patient is doing outstanding from a respiratory standpoint. He is breathing comfortably. He had multiple bowel movements yesterday with his bowel prep. That being said, the last 3-4 cleared. Otherwise, there has been no interval change to his condition. He did not have any lightheadedness. PHYSICAL EXAMINATION: VITAL SIGNS: Afebrile, pulse 103, blood pressure 106/74, respirations 16, saturation 94% on room air. GENERAL: The patient is awake, alert, no apparent distress. LUNGS: Decent air entry. There is no prolonged expiratory phase or wheezing present. There are some dependent crackles present. HEART: Normal rate, regular. ABDOMEN: Soft. Nontender, nondistended. Bowel sounds are positive. MUSCULOSKELETAL: No cyanosis or clubbing. There is no pitting in the bilateral lower extremities. NEUROLOGIC: Grossly nonfocal. LABORATORY DATA: Hemoglobin 9.8. ASSESSMENT: 1. Ulcerative colitis flare. 2. Acute blood loss anemia, status post 7 units of blood transfused. 3. Obstructive sleep apnea, suspected. 4. Atrial fibrillation with rapid ventricular rate. DISCUSSION AND PLAN: The patient's bleeding has stopped. I will repeat a hemoglobin and hematocrit tomorrow. We are working on controlling his rate. Magnesium and Phos will be checked. Potassium and calcium will be replaced. IV fluids will be interrupted as he is developing a little bit of volume overload state. If he gets in any respiratory difficulties, please give me a phone call. I will continue to follow. SERENE
[2018-02-06 12:51] LABS: Glucose 182 mg/dL (70-105); Sodium 128 mmol/L (136-145)
[2018-02-06 12:58] LABS: #Eosinphils 0.1 thou/uL (0.0-0.7); #Lymphocytes 0.7 thou/uL (1.20-3.40); #Monocytes 1.1 thou/uL (0.11-0.59); #Neutrophils 14.6 thou/uL (1.40-6.50); %Eosinophils 0.7 % (0.0-10.0); %Monocytes 6.7 % (0.0-10.0); %Neutrophils 88.6 % (42.0-75.0); Hemoglobin 7.4 g/dL (14.0-18.0); Mean Corpuscular Hemoglobin 31.1 pg (27.0-31.0); Mean Corpuscular Volume 88.8 fL (78.0-98.0); Mean Platelet Volume 7.9 fL (7.4-10.4); Platelet Count 250 thou/uL (130-400); RBC Distribution Width 13.5 % (11.5-14.5); Red Blood Cell (RBC) Count 2.39 mill/uL (4.70-6.10); White Blood Cell (WBC) Count 16.5 thou/uL (4.8-10.8)
[2018-02-06] MEDS ORDERED: Potassium Chloride 20 MEQ TAB PO SCH (13:30)
[2018-02-06] MEDS ORDERED: Magnesium Sulfate 4 GM in Sodium Chloride 0.9% 250 ML 250 ML IVPB SCH (13:30)
--- NOTE | 2018-02-06 14:41 | PDOC.PN ---
- Subjective Encounter Start Date: 02/06/18 Encounter Start Time: 10:00 -: old records requested/rev pt developed afib with RVR overnight, so cardizem drip started, he denies chest pain, no fever, no abdominal pain - Objective Resuscitation Status: Resuscitation Status FULL:Full Resuscitation MAR Reviewed: Yes Vital Signs & Weight: Vital Signs (12 hours) Temp Pulse Resp BP Pulse Ox 02/06/18 11:12 97.4 F L 130 H 15 106/76 99 02/06/18 07:00 97.4 F L 103 H 16 106/74 94 L Weight Admit Weight 232 lb 3 oz Weight 235 lb 12.8 oz Most Recent Monitor Data Heart Rate from ECG 97 NIBP 133/95 Respiration from ECG 14 I&O: 02/05/18 02/06/18 02/07/18 06:59 06:59 06:59 Intake Total 1942 1110 Output Total 2200 570 Balance -258 540 Result Diagrams: 02/06/18 03:30 02/06/18 03:30 EKG Reviewed by me: Yes (afib with RVR) Phys Exam - Physical Examination Constitutional: NAD HEENT: PERRLA, moist MMs, sclera anicteric Neck: no JVD, supple Respiratory: no wheezing, no rales, no rhonchi Cardiovascular: no significant murmur, irregular Gastrointestinal: soft, non-tender, no distention, positive bowel sounds Musculoskeletal: no edema, pulses present Neurological: non-focal, normal sensation, moves all 4 limbs Psychiatric: normal affect, A&O x 3 Skin: no rash, normal turgor Dx/Plan (1) Exacerbation of ulcerative colitis Code(s): K51.90 - ULCERATIVE COLITIS, UNSPECIFIED, WITHOUT COMPLICATIONS Status: Acute (2) Anemia due to acute blood loss Code(s): D62 - ACUTE POSTHEMORRHAGIC ANEMIA Status: Acute (3) Atrial fibrillation with RVR Code(s): I48.91 - UNSPECIFIED ATRIAL FIBRILLATION Status: Acute (4) Obesity (BMI 30.0-34.9) Code(s): E66.9 - OBESITY, UNSPECIFIED Status: Chronic (5) Tobacco chew use Code(s): Z72.0 - TOBACCO USE Status: Chronic (6) Hyponatremia Code(s): E87.1 - HYPO-OSMOLALITY AND HYPONATREMIA Status: Acute (7) Acute kidney failure Status: Acute (8) Hypocalcemia Code(s): E83.51 - HYPOCALCEMIA Status: Acute Comment: corrected calcium for albumin today is 7.4 (9) Hypomagnesemia Code(s): E83.42 - HYPOMAGNESEMIA Status: Acute - Plan cont current plan of care * continue cardizem drip for rate control * will give one dose of digoxin * replace magnesium today * medication reviewed as below * symptomatic treatment * monitor H & H * today plan for colonoscopy * DC IVF * if Hb drops and if recurrent bleeding, he will need surgical evaluation * continue IV solumderol, mesalamine * pt can not have lovenox therapeutic dose do to bleeding in view of afib * cardiology will be consulted * will get echo today. Review of Systems - Review of Systems Constitutional: negative: fever, chills, sweats, weakness, malaise, other Eyes: negative: Pain, Vision Change, Conjunctivae Inflammation, Eyelid Inflammation, Redness, Other ENT: negative: Ear Pain, Ear Discharge, Nose Pain, Nose Discharge, Nose Congestion, Mouth Pain, Mouth Swelling, Throat Pain, Throat Swelling, Other Respiratory: negative: Cough, Dry, Shortness of Breath, Hemoptysis, SOB with Excertion, Pleuritic Pain, Sputum, Wheezing Cardiovascular: negative: chest pain, palpitations, orthopnea, paroxysmal nocturnal dyspnea, edema, light headedness, other Gastrointestinal: Hematochezia. negative: Nausea, Vomiting, Abdominal Pain, Diarrhea, Constipation, Melena, Other Genitourinary: negative: Dysuria, Frequency, Incontinence, Hematuria, Retention , Other Musculoskeletal: negative: Neck Pain, Shoulder Pain, Arm Pain, Back Pain, Hand Pain, Leg Pain, Foot Pain, Other Skin: negative: Rash, Lesions, Jose, Bruising, Other - Medications/Allergies Allergies/Adverse Reactions: Allergies Allergy/AdvReac Type Severity Reaction Status Date / Time No Known Allergies Allergy Verified 02/03/18 21:55 Medications: Current Medications Acetaminophen (Tylenol) 650 mg PO Q4H PRN PRN Reason: Headache/Fever/Mild Pain (1-3) Last Admin: 02/05/18 01:51 Dose: 650 mg Hydrocodone Bitart/Acetaminophen ([place] 5/325) 1 tab PO Q4H PRN PRN Reason: Moderate Pain (4-6) Artificial Tears (Tears Naturale) 0 drop EA EYE PRN PRN PRN Reason: Dry Eyes Calcium/Vitamin D (Caltrate 600 + Vit D) 1 tab PO BID-[facility] Last Admin: 02/06/18 11:39 Dose: Not Given Famotidine (Pepcid) 20 mg PO BID [facility] Last Admin: 02/06/18 11:39 Dose: 20 mg Guaifenesin (Robitussin Sf) 200 mg PO Q4H PRN PRN Reason: Cough Hydralazine HCl (Apresoline) 10 mg SLOW IVP Q4H PRN PRN Reason: Systolic BP > 180 Sodium Chloride (Normal Saline 0.9%) 1,000 mls @ 125 mls/hr IV .Q8H [facility] Last Admin: 02/06/18 11:42 Dose: 1,000 mls Diltiazem HCl 125 mg/Miscellaneous Medication 1 each/ Sodium Chloride 125 mls @ 0 mls/hr IVPB INF [facility]; Protocol Loratadine (Claritin) 10 mg PO DAILYPRN PRN PRN Reason: Sinus Symptoms Mesalamine (Delzicol Dr) 800 mg PO TID [facility] Last Admin: 02/06/18 11:39 Dose: 800 mg Methylprednisolone Sodium Succinate (Solu-Medrol) 40 mg IVP Q6HR [facility] Last Admin: 02/06/18 11:39 Dose: 40 mg Mineral Oil/White Petrolatum (Eucerin Cream) 0 gm TOP BIDPRN PRN PRN Reason: Dry Skin Ondansetron HCl (Zofran) 4 mg IVP Q6H PRN PRN Reason: Nausea/Vomiting Last Admin: 02/05/18 09:02 Dose: 4 mg Ondansetron HCl (Zofran Odt) 4 mg PO Q6H PRN PRN Reason: Nausea/Vomiting Phenol (Chloraseptic [place] 180 Ml Bot) 0 ml PO PRN PRN PRN Reason: Sore Throat Sodium Chloride ([place] Nasal [place] 0.65%) 0 ml EA NARE QIDPRN PRN PRN Reason: Nasal Congestion Zolpidem Tartrate (Ambien) 5 mg PO HSPRN PRN PRN Reason: Insomnia
[2018-02-06] MEDS: Calcium Gluc 4.6 MEQ/10 ML (100 MG/ML) SLOW IVP SCH ×2 (16:05→20:16)
--- NOTE | 2018-02-06 16:36 | CON ---
DATE OF CONSULTATION: 02/06/2018 REASON FOR CONSULTATION: Atrial fibrillation. HISTORY OF PRESENT ILLNESS: Mr. Cesar is a 37-year-old gentleman with no previous history of atria l fibrillation, recently presented with a GI bleed. He has a history of ulcerative colitis. He pres ented to the emergency room with the above. He was then found to be in atrial fibrillation with RVR. I was consulted to assess for dysrhythmia, and control. He denies chest pain or pressure. He has received a total of 7 units of packed red blood cells and c ontinues to be anemic. From a CV standpoint, he has no previous history of atrial fibrillation. He does admit to intermitte nt episodes of tachycardia. PAST MEDICAL HISTORY: As above including acid reflux and obstructive sleep apnea, obesity. SOCIAL HISTORY: No current tobacco use. Now, positive alcohol use. ALLERGIES: None. REVIEW OF SYSTEMS: Ten-point review of systems is reviewed as above, otherwise negative. PHYSICAL EXAMINATION: VITAL SIGNS: Blood pressure 132/78, pulse 139, temperature 97.4. GENERAL: Patient is a pleasant male who is in no acute distress. The patient appears his stated age . NEUROLOGIC: The patient is alert and oriented times 3 with no focal neurologic deficits. HEENT: Sclerae without icterus. Mouth has moist mucous membranes with normal pallor. NECK: No JVD. Carotid upstroke brisk. No bruits bilaterally. LUNGS: Clear to auscultation with unlabored respirations. BACK: No scoliosis or kyphosis. CARDIAC: Irregularly irregular. ABDOMEN: Soft, nontender, nondistended. No peritoneal signs present. No hepatosplenomegaly. No ab normal striae. EXTREMITIES: 2+ femoral and 2+ dorsalis pedis pulses. No cyanosis, clubbing, or edema. SKIN: No gross abnormalities. PERTINENT LABS: Hemoglobin 7.4, creatinine 1.39, calcium 6.4, albumin 2.1. IMPRESSION: 1. Atrial fibrillation with rapid ventricular response -- this is likely related to anemia. He does have one risk factor including hypertension with a CHADS-VASc score 1. At this point, I recommend r ate control. I have added p.o. Cardizem at 60 mg q.6 hours in addition increasing his IV Cardizem to 5 mg IV to 10 mg IV per hour. May consider digoxin. Anticoagulation therapy contraindicated. 2. Anemia -- second to ulcerative colitis. GI has been consulted. Also, recommend echo with Doppler to assess LV function.
[2018-02-06] MEDS ORDERED: GoLYTELY 4,000 ml Bottle PO SCH (19:30)
[2018-02-06] MEDS: Diltiazem 125 MG in Sodium Chloride 0.9% 100 ML IVPB SCH (20:20)
[2018-02-07 04:36] LABS: Anion Gap 16 mmol/L (10-20); BUN (Urea Nitrogen) 17 mg/dL (8.9-20.6); Calc. Creatinine Clearance 198 mL/min (70-130); Carbon Dioxide 20 mmol/L (22-29); Chloride 100 mmol/L (98-107); Estimated GFR-MDRD Greater than 90; Glucose 203 mg/dL (70-105); Magnesium 2.2 mg/dL (1.6-2.6); Potassium 3.6 mmol/L (3.5-5.1); Sodium 132 mmol/L (136-145)
[2018-02-07 05:23] LABS: Phosphorus 3.3 mg/dL (2.3-4.7)
--- NOTE | 2018-02-07 06:00 | PDOC.CTH ---
Cardiology Progress Note - Subjective Pt not cooperative today. Pulled out IV with CCB IV today. Wants to remove tele monitor. HR somewhat beter. - Objective Vital Signs Temp Pulse Resp BP Pulse Ox 02/07/18 05:04 99 02/07/18 04:35 97.8 F 105 H 20 99 02/07/18 00:27 98.4 F 105 H 20 160/91 H 96 02/06/18 20:00 98.5 F 110 H 18 131/90 100 Admit Weight 232 lb 3 oz Weight 235 lb 12.8 oz 02/05/18 02/06/18 02/07/18 06:59 06:59 06:59 Intake Total 1942 1110 1800 Output Total 2200 570 Balance -551 644 5271 - Physical Examination General/Neuro: alert & oriented x3, NAD Neck: no JVD present Lungs: CTA, unlabored respirations Heart: other: (irr) Abdomen: NT/ND, soft Extremities: + femoral B - Labs Result Diagrams: 02/07/18 03:42 02/07/18 03:42 - Assessment/Plan Afib with RVR Ulcerative colitis HTN CHADS score of 1. given recent massive GI bleed, ACT is contraindicated Increase CCB to 90 mg Q6H Decrease IV CCB
[2018-02-07] MEDS: Calcium Carbonate + Vit D 1 TAB PO SCH ×2 (10:20→15:41)
[2018-02-07] MEDS: Famotidine 20 MG TAB PO SCH ×2 (10:20→20:56)
[2018-02-07] MEDS: Mesalamine DR 400 mg Capsule PO SCH ×3 (11:19→20:56)
[2018-02-07] MEDS: Diltiazem 125 MG in Sodium Chloride 0.9% 100 ML IVPB SCH (11:20)
[2018-02-07] MEDS ORDERED: PROPOFOL 200 MG/20 ML VIAL ONE (11:30)
[2018-02-07] MEDS ORDERED: Lidocaine 1% PF 5 ML VIAL ONE (11:30)
[2018-02-07] MEDS ORDERED: Potassium Chloride 20 MEQ TAB PO SCH (14:15)
--- NOTE | 2018-02-07 14:19 | PRG ---
DATE OF SERVICE: 02/07/2018 SERVICE: Pulmonary Medicine. INTERVAL HISTORY: The patient had a confusional event last night. Otherwise, he is breathing comfor tably. He has not had any acute respiratory issues, fevers, chills, shortness of breath, nausea or v omiting. He is not having any bloody bowel movements, any longer. He has not required any additiona l transfusion of blood related products. PHYSICAL EXAMINATION: VITAL SIGNS: Afebrile, pulse 105, blood pressure 109/67, respirations 18, saturation 97% on room air . GENERAL: The patient is awake, alert, in no apparent distress. LUNGS: Excellent air entry. There is no prolonged expiratory phase or wheezing present. HEART: Tachycardic. Irregular. ABDOMEN: Soft, nontender, nondistended. Bowel sounds are positive. MUSCULOSKELETAL: No cyanosis or clubbing. There is no pitting in the bilateral lower extremities. NEUROLOGIC: Grossly nonfocal. LABORATORY DATA: Hemoglobin stable at 8.0. Magnesium and phosphorus fall within the normal limits t alfonso. Potassium is 3.6. Basic metabolic profile is otherwise unremarkable. His bicarbonate is stab le at 20, and anion gap is trending upward gently. C. diff antigen and toxin are unremarkable. Stoo l cultures remain negative. ASSESSMENT: 1. Ulcerative colitis flare. 2. Acute blood loss anemia, status post 7 units of blood transfused. 3. Obstructive sleep apnea, suspected. 4. Atrial fibrillation/flutter with rapid ventricular response. 5. Hypocalcemia. 6. Hypokalemia. DISCUSSION AND PLAN: We will once again replace the potassium and calcium. From my perspective, he is stable for transition to the telemetry unit. In the outpatient setting, he would benefit from A p olysomnogram. We will try to arrange that with this patient.
--- NOTE | 2018-02-07 14:58 | OP ---
DATE OF PROCEDURE: 02/07/2018 PROCEDURE: Colonoscopy with biopsies and polypectomy. INDICATION FOR PROCEDURE: Hematochezia, history of ulcerative colitis. DESCRIPTION OF PROCEDURE: After the risks and benefits of the procedure was explained to the patient including risk of bleeding, infection, perforation, reactions to anesthesia, aspiration and/or pain, informed consent was obtained. The patient was then taken to the endoscopy suite where deep sedatio n was administered via propofol and anesthesia support. Once adequate sedation was achieved, the sta ndard colonoscope was introduced to the rectum after an external examination and advanced to the term inal ileum without difficulty. The quality of the prep was good with good views of the colonic mucos a achieved. The patient tolerated the procedure well with no immediate perioperative complications. After the procedure, he was then taken to the PACU in satisfactory condition. FINDINGS: DIGITAL RECTAL EXAM: Small external hemorrhoids were noted on external examination. COLON FINDINGS: Normal appearing mucosa was seen in the terminal ileum up to approximately 10 cm pas t the ileocecal valve. Normal appearing mucosa was seen at the ileocecal valve as well as at the estuardo endiceal orifice. Mild inflammation was seen within the cecum with mild granularity of the tissue, b ut no loss of vascularity. No inflammatory pseudopolyps or ulcerations were seen in the cecum; howev er, significant for mild to moderate increased mucosal erythema as well as innumerable erythematous a nd pigmented polyps seen in the ascending, transverse, descending and sigmoid colons consistent with inflammatory pseudopolyps. Multiple biopsies of these polyps were obtained and placed in their respe ctive jars in the ascending, transverse, and descending colons. An additional large pedunculated lexi yp was seen in the ascending colon measuring approximately 1.5-2 cm. Additional biopsies were taken from this particular polyp and placed in a separate jar for pathology evaluation. At approximately 2 0 cm past the anal verge, the mucosa then transferred back to normal appearing mucosa with mild granu larity, but no loss of vascularity and disappearance of the inflammatory pseudopolyps; however, withi n the rectum at approximately 7-10 cm past the anal verge, a large 7-8 mm pigmented polyp was seen. This polyp was completely surrounded by normal appearing mucosa. This polyp was then completely kimi zain with snare cautery polypectomy and placed in a specimen jar for evaluation. On rectal retroflexi on, small internal hemorrhoids were noted. IMPRESSION: 1. Severe pancolonic ulcerative colitis with an inflammatory pseudopolyp formation. 2. Normal terminal ileum. 3. Internal and external hemorrhoids. RECOMMENDATIONS: 1. We will follow up on the biopsy results with further care mediated by the pathology report; [facility], based on the appearance of the colonoscopy today, I would highly recommend placing the patient on a biologic. 2. I will obtain labs prior to placing the patient on a biologic medication in anticipation for futu re use. 3. We will also consider placing the patient on azathioprine as an immunomodulator in conjunction wi th the biologic as part of dual therapy. 4. If any of the polyps display adenocarcinoma or dysplasia, I would strongly recommend consultation of the General Surgery Service for subtotal colectomy. 5. Continue mesalamine 2.4 grams daily. 6. Would continue methylprednisolone 40 mg 4 times daily with the plans of transferring the patient tomorrow to prednisone 60 mg daily. We will continue to follow. Please call with any questions.
[2018-02-07] MEDS: Calcium Gluc 4.6 MEQ/10 ML (100 MG/ML) SLOW IVP SCH ×2 (15:40→20:56)
--- NOTE | 2018-02-07 21:16 | PDOC.PN ---
- Subjective Encounter Start Date: 02/07/18 Encounter Start Time: 16:00 Subjective: pt up in bed eating - Objective Resuscitation Status: Resuscitation Status FULL:Full Resuscitation Vital Signs & Weight: Vital Signs (12 hours) Temp Pulse Resp BP Pulse Ox 02/07/18 19:50 98 02/07/18 15:20 97.5 F L 142 H 18 125/81 98 02/07/18 11:25 20 142/120 H Weight Admit Weight 232 lb 3 oz Weight 235 lb 12.8 oz Most Recent Monitor Data Heart Rate from ECG 97 NIBP 133/95 Respiration from ECG 14 I&O: 02/06/18 02/07/18 02/08/18 06:59 06:59 06:59 Intake Total 1110 4420 800 Output Total 570 250 Balance 540 4420 550 Result Diagrams: 02/07/18 03:42 02/07/18 03:42 Phys Exam - Physical Examination HEENT: PERRLA, moist MMs, sclera anicteric, TM's clear, oral pharynx no lesions , 2+ tonsils Respiratory: no wheezing, no rales, no rhonchi, wheezing present, clear to auscultation bilateral Cardiovascular: RRR, no significant murmur, no rub, gallop, irregular Gastrointestinal: soft, positive bowel sounds mild tenderness to lower abdomen Dx/Plan (1) Exacerbation of ulcerative colitis Code(s): K51.90 - ULCERATIVE COLITIS, UNSPECIFIED, WITHOUT COMPLICATIONS Status: Acute (2) Atrial fibrillation with RVR Code(s): I48.91 - UNSPECIFIED ATRIAL FIBRILLATION Status: Acute (3) Obesity (BMI 30.0-34.9) Code(s): E66.9 - OBESITY, UNSPECIFIED Status: Chronic (4) Anemia due to acute blood loss Code(s): D62 - ACUTE POSTHEMORRHAGIC ANEMIA Status: Acute - Plan s/p colonosocpy severe pancolonic UC pt on steroids and mesalamine -: pt's hr still in high 120's echo indicated ef of 50-55% -: CHADVAS of 1 No AC indicated, cardiology following * . Review of Systems - Review of Systems Respiratory: negative: Cough, Dry, Shortness of Breath, Hemoptysis, SOB with Excertion, Pleuritic Pain, Sputum, Wheezing Cardiovascular: negative: chest pain, palpitations, orthopnea, paroxysmal nocturnal dyspnea, edema, light headedness, other Gastrointestinal: Abdominal Pain Genitourinary: negative: Dysuria, Frequency, Incontinence, Hematuria, Retention , Other - Medications/Allergies Allergies/Adverse Reactions: Allergies Allergy/AdvReac Type Severity Reaction Status Date / Time No Known Allergies Allergy Verified 02/03/18 21:55 Medications: Current Medications Acetaminophen (Tylenol) 650 mg PO Q4H PRN PRN Reason: Headache/Fever/Mild Pain (1-3) Last Admin: 02/05/18 01:51 Dose: 650 mg Hydrocodone Bitart/Acetaminophen ([place] 5/325) 1 tab PO Q4H PRN PRN Reason: Moderate Pain (4-6) Calcium/Vitamin D (Caltrate 600 + Vit D) 1 tab PO BID-[facility] Last Admin: 02/07/18 15:41 Dose: 1 tab Diltiazem HCl (Cardizem) 90 mg PO Q6HR [facility] Last Admin: 02/07/18 18:11 Dose: 90 mg Famotidine (Pepcid) 20 mg PO BID [facility] Last Admin: 02/07/18 20:56 Dose: 20 mg Guaifenesin (Robitussin Sf) 200 mg PO Q4H PRN PRN Reason: Cough Hydralazine HCl (Apresoline) 10 mg SLOW IVP Q4H PRN PRN Reason: Systolic BP > 180 Diltiazem HCl 125 mg/ Sodium (Chloride) 125 mls @ 0 mls/hr IVPB INF [facility]; Protocol Last Admin: 02/07/18 11:20 Dose: 125 mls Loratadine (Claritin) 10 mg PO DAILYPRN PRN PRN Reason: Sinus Symptoms Mesalamine (Delzicol Dr) 800 mg PO TID [facility] Last Admin: 02/07/18 20:56 Dose: 800 mg Methylprednisolone Sodium Succinate (Solu-Medrol) 40 mg IVP Q6HR [facility] Last Admin: 02/07/18 18:11 Dose: 40 mg Ondansetron HCl (Zofran) 4 mg IVP Q6H PRN PRN Reason: Nausea/Vomiting Last Admin: 02/05/18 09:02 Dose: 4 mg Ondansetron HCl (Zofran Odt) 4 mg PO Q6H PRN PRN Reason: Nausea/Vomiting Phenol (Chloraseptic [place] 180 Ml Bot) 0 ml PO PRN PRN PRN Reason: Sore Throat Sodium Chloride ([place] Nasal [place] 0.65%) 0 ml EA NARE QIDPRN PRN PRN Reason: Nasal Congestion Zolpidem Tartrate (Ambien) 5 mg PO HSPRN PRN PRN Reason: Insomnia
[2018-02-08 05:19] LABS: Anion Gap 12 mmol/L (10-20); BUN (Urea Nitrogen) 12 mg/dL (8.9-20.6); Calc. Creatinine Clearance 201 mL/min (70-130); Calcium 7.6 mg/dL (7.8-10.44); Carbon Dioxide 25 mmol/L (22-29); Chloride 98 mmol/L (98-107); Estimated GFR-MDRD Greater than 90; Glucose 224 mg/dL (70-105); Potassium 4.1 mmol/L (3.5-5.1); Sodium 131 mmol/L (136-145)
[2018-02-08] MEDS ORDERED: Dextrose 50% Abboject 50 ML SYRINGE SLOW IVP PRN (07:02)
[2018-02-08] MEDS ORDERED: Dextrose 5% in Water 1,000 ML IV PRN (07:02)
[2018-02-08 07:09] LABS: Hemoglobin 7.6 g/dL (14.0-18.0)
--- NOTE | 2018-02-08 08:52 | PDOC.CTH ---
Cardiology Progress Note - Subjective Doing better today. No recurrent melena per pt. HR somewhat improved. On IV CCB and PO CCB - Objective Vital Signs Temp Pulse Resp BP Pulse Ox 02/08/18 04:21 97.5 F L 109 H 16 111/75 97 02/08/18 00:00 98 F 143 H 16 129/98 H 98 Admit Weight 232 lb 3 oz Weight 235 lb 12.8 oz 02/07/18 02/08/18 02/09/18 06:59 06:59 06:59 Intake Total 4420 1380 Output Total 250 Balance 4420 1130 - Physical Examination General/Neuro: alert & oriented x3, NAD Neck: carotid US brisk, no JVD present Lungs: CTA, unlabored respirations Heart: other: (irr) - Labs Result Diagrams: 02/08/18 04:22 02/08/18 04:24 - Assessment/Plan Afib with RVR Ulcerative colitis HTN GI bleed Continue with aggressive rate control Pt on a total of 360mg of CCB Add BB Continue to try and titrate down CCB IV MARY score of 1. No ACT given GI bleed and low score
[2018-02-08] MEDS: Mesalamine DR 400 mg Capsule PO SCH ×3 (10:01→21:46)
[2018-02-08] MEDS: Calcium Carbonate + Vit D 1 TAB PO SCH ×2 (10:01→18:35)
[2018-02-08] MEDS: Famotidine 20 MG TAB PO SCH ×2 (10:01→21:47)
[2018-02-08] MEDS: HumaLOG 300 UNITS/3 ML VIAL SC PRN ×2 (12:45→15:40)
--- NOTE | 2018-02-08 13:43 | PRG ---
DATE OF SERVICE: 02/08/2018 REASON FOR CONSULTATION: Ulcerative colitis flare. SUBJECTIVE: Yesterday, the patient underwent colonoscopy for further evaluation of his ulcerative co litis with findings of innumerable inflammatory pseudopolyps throughout the entire colon indicative o f severe disease. He did experience some increased abdominal tenderness after the colonoscopy, but t his has subsided into today with no further episodes of abdominal pain or hematochezia at the current time. He has been able to tolerate a diet well with no difficulties Currently, he denies any nausea, vomiting, fevers, chills, GI bleeding or constipation. OBJECTIVE: VITAL SIGNS: Temperature 97.5, pulse 109, blood pressure 111/75, respiratory rate 16, satting 97% on room air. GENERAL: The patient was sitting at bedside eating breakfast in no acute distress. Alert and orient ed x4. CARDIOVASCULAR: Tachycardic rate with possible irregularly irregular rhythm. RESPIRATORY: Clear to auscultation bilaterally. ABDOMEN: Normoactive bowel sounds, soft, nondistended, mild tenderness to palpation in the midepigas tric region. EXTREMITIES: No cyanosis, clubbing or edema. LABORATORY DATA: CBC with hemoglobin of 7.6, hematocrit 22.5. Chemistry with sodium of 131, potassi um 4.1, chloride 98, CO2 25, BUN 12, creatinine 0.77, glucose 224. IMAGING DATA: Colonoscopy performed on 02/07/2018 showed significant increased mucosal erythema as w ell as innumerable inflammatory pseudopolyps throughout the colon indicative of active ulcerative col itis. ASSESSMENT AND PLAN: The patient is a 37-year-old male with past medical history of ulcerative colit is and possible atrial fibrillation presenting with ulcerative colitis flare. Ulcerative colitis flare. The patient was initially diagnosed with ulcerative colitis in 2017 and garcia d been relatively uncontrolled for the last 3-4 years while on no therapy for his ulcerative colitis. On admission, he was noted to have mild abdominal pain, but significant hematochezia for which the patient received multiple blood transfusions in order to keep up with the blood loss. Colonoscopy pe rformed on 02/07/2018 was consistent with severe ulcerative colitis including innumerable inflammator y pseudopolyps. However, on high dose steroids, he has responded well to treatment with almost compl ete resolution of his abdominal pain as well as complete resolution of his hematochezia. Currently, he is tachycardic, but does have a prior diagnosis of atrial fibrillation for which Cardiology is fol lowing him at this point in time, and I do not feel that this is secondary to his ulcerative colitis. RECOMMENDATIONS: 1. We would continue to trend H&H and transfuse as necessary to maintain an H&H of 11/15. 2. Continue to monitor clinically for signs of active gastrointestinal bleeding. 3. Continue mesalamine 2.4 grams daily for we will transfer patient to prednisone 40 mg daily as par t of steroid therapy for ulcerative colitis flare and is a patient of discharge. 4. I will order labs that are prerequisite prior to placing the patient on immunomodulator or biolog ic therapy with plans to start this as an outpatient. We will continue to follow. Please call with any questions.
[2018-02-08] MEDS ORDERED: Furosemide 20 MG/2 ML VIAL SLOW IVP SCH (14:30)
[2018-02-08] MEDS ORDERED: Potassium Chloride 20 MEQ TAB PO SCH (14:30)
--- NOTE | 2018-02-08 15:31 | PRG ---
DATE OF SERVICE: 02/08/2018 SERVICE: Pulmonary Medicine. INTERVAL HISTORY: The patient is doing absolutely fantastic and respiratory standpoint. He denies any current chest pain, fevers, or chills. There has been no interval change to his condition. Otherwise, he is doing fantastic. He is not currently having any active bleeding. He remains in atrial fibrillation with a rapid rate. PHYSICAL EXAMINATION: VITAL SIGNS: Afebrile, pulse 109, blood pressure 111/75, respirations 16, saturation 97% on room air. GENERAL: The patient is awake, alert, no apparent distress. LUNGS: Excellent air entry. There is no prolonged expiratory phase or wheezing present. There are some dependent crackles. HEART: Normal rate, regular. ABDOMEN: Soft, nontender, nondistended. Bowel sounds are positive. MUSCULOSKELETAL: No cyanosis or clubbing. There is no pitting in the bilateral lower extremities. NEUROLOGIC: Grossly nonfocal. IMAGING DATA: Hemoglobin 7.6 and roughly stable. Basic metabolic profile is essentially unremarkable. Glucose is 300. Calcium is improved to 7.6. ASSESSMENT: 1. Ulcerative colitis flare. 2. Acute blood loss anemia, status post 7 units of blood transfusion. 3. Obstructive sleep apnea, suspected. 4. Atrial fibrillation/flutter with rapid ventricular response. 5. Hypocalcemia, resolved. 6. Hypokalemia, resolved. DISCUSSION AND PLAN: I will transition the patient out of the ICU to the telemetry unit. He is currently on a board for that. When he leaves [facility], he will have no further requirements for inpatient Pulmonary or Critical Care opinion and I will sign off. He has a touch of volume overload. I will motivate his kidneys with some Lasix. Unloading his heart may help him get back into normal rhythm. In the outpatient setting, we will have him return to clinic to see me, so that we can set him up for a sleep study. SERENE
[2018-02-08] MEDS: Diltiazem 125 MG in Sodium Chloride 0.9% 100 ML IVPB SCH (15:39)
--- NOTE | 2018-02-08 16:16 | PDOC.PN ---
- Subjective Encounter Start Date: 02/08/18 Encounter Start Time: 14:45 Subjective: pt up in bed still has diarrhea but has improved - Objective Resuscitation Status: Resuscitation Status FULL:Full Resuscitation Vital Signs & Weight: Vital Signs (12 hours) Temp Pulse Resp BP Pulse Ox 02/08/18 08:00 98 02/08/18 04:21 97.5 F L 109 H 16 111/75 97 Weight Admit Weight 232 lb 3 oz Weight 235 lb 12.8 oz Most Recent Monitor Data Heart Rate from ECG 97 NIBP 133/95 Respiration from ECG 14 I&O: 02/07/18 02/08/18 02/09/18 06:59 06:59 06:59 Intake Total 4420 1380 Output Total 250 Balance 4420 1130 Result Diagrams: 02/08/18 04:22 02/08/18 04:24 Additional Labs: Accuchecks 02/08/18 02/08/18 15:32 12:38 POC Glucose 218 H 300 H Dx/Plan (1) Exacerbation of ulcerative colitis Code(s): K51.90 - ULCERATIVE COLITIS, UNSPECIFIED, WITHOUT COMPLICATIONS Status: Acute (2) Atrial fibrillation with RVR Code(s): I48.91 - UNSPECIFIED ATRIAL FIBRILLATION Status: Acute (3) Obesity (BMI 30.0-34.9) Code(s): E66.9 - OBESITY, UNSPECIFIED Status: Chronic (4) Anemia due to acute blood loss Code(s): D62 - ACUTE POSTHEMORRHAGIC ANEMIA Status: Acute - Plan pt on steroids and mesalamine -: will add lantus low dose due to elevated blood sugars -: pt's heart rate is still high, bb added * . Review of Systems - Review of Systems Cardiovascular: negative: chest pain, palpitations, orthopnea, paroxysmal nocturnal dyspnea, edema, light headedness, other Gastrointestinal: negative: Nausea, Vomiting, Abdominal Pain, Diarrhea, Constipation, Melena, Hematochezia, Other Genitourinary: negative: Dysuria, Frequency, Incontinence, Hematuria, Retention , Other - Medications/Allergies Allergies/Adverse Reactions: Allergies Allergy/AdvReac Type Severity Reaction Status Date / Time No Known Allergies Allergy Verified 02/03/18 21:55 Medications: Current Medications Acetaminophen (Tylenol) 650 mg PO Q4H PRN PRN Reason: Headache/Fever/Mild Pain (1-3) Last Admin: 02/05/18 01:51 Dose: 650 mg Hydrocodone Bitart/Acetaminophen ([place] 5/325) 1 tab PO Q4H PRN PRN Reason: Moderate Pain (4-6) Calcium/Vitamin D (Caltrate 600 + Vit D) 1 tab PO BID-[facility] Last Admin: 02/08/18 10:01 Dose: 1 tab Dextrose/Water (Dextrose 50%) 25 gm SLOW IVP PRN PRN PRN Reason: Hypoglycemia Diltiazem HCl (Cardizem) 90 mg PO Q6HR [facility] Last Admin: 02/08/18 12:30 Dose: 90 mg Famotidine (Pepcid) 20 mg PO BID [facility] Last Admin: 02/08/18 10:01 Dose: 20 mg Furosemide (Lasix) 20 mg SLOW IVP DAILY [facility] Stop: 02/09/18 09:01 Furosemide (Lasix) 20 mg SLOW IVP 1430 [facility] Stop: 02/08/18 17:00 Last Admin: 02/08/18 15:23 Dose: 20 mg Glucagon (Glucagon) 1 mg IM PRN PRN PRN Reason: Hypoglycemia Guaifenesin (Robitussin Sf) 200 mg PO Q4H PRN PRN Reason: Cough Hydralazine HCl (Apresoline) 10 mg SLOW IVP Q4H PRN PRN Reason: Systolic BP > 180 Diltiazem HCl 125 mg/ Sodium (Chloride) 125 mls @ 0 mls/hr IVPB INF [facility]; Protocol Last Admin: 02/08/18 15:39 Dose: 125 mls Dextrose/Water (D5w) 1,000 mls @ 0 mls/hr IV .Q0M PRN PRN Reason: Hypoglycemia Insulin Glargine 6 units/ (Miscellaneous Medication) 0.06 mls @ 0 mls/hr [facility] Insulin Human Lispro (Humalog) 0 units SC .MILD SLIDING SCALE PRN PRN Reason: Mild Correctional Scale Last Admin: 02/08/18 15:40 Dose: 3 unit Loratadine (Claritin) 10 mg PO DAILYPRN PRN PRN Reason: Sinus Symptoms Mesalamine (Delzicol Dr) 800 mg PO TID [facility] Last Admin: 02/08/18 15:23 Dose: 800 mg Methylprednisolone Sodium Succinate (Solu-Medrol) 40 mg IVP Q6HR [facility] Last Admin: 02/08/18 12:30 Dose: 40 mg Metoprolol Tartrate (Lopressor) 25 mg PO BID [facility] Ondansetron HCl (Zofran) 4 mg IVP Q6H PRN PRN Reason: Nausea/Vomiting Last Admin: 02/05/18 09:02 Dose: 4 mg Ondansetron HCl (Zofran Odt) 4 mg PO Q6H PRN PRN Reason: Nausea/Vomiting Phenol (Chloraseptic [place] 180 Ml Bot) 0 ml PO PRN PRN PRN Reason: Sore Throat Potassium Chloride (K-Dur) 40 meq PO 1430 [facility] Stop: 02/08/18 17:00 Last Admin: 02/08/18 15:23 Dose: 40 meq Sodium Chloride ([place] Nasal [place] 0.65%) 0 ml EA NARE QIDPRN PRN PRN Reason: Nasal Congestion Zolpidem Tartrate (Ambien) 5 mg PO HSPRN PRN PRN Reason: Insomnia
[2018-02-08] MEDS ORDERED: Insulin Glargine 6 UNITS in Pre-Filled Syringe 1 EACH SC SCH (21:00)
[2018-02-08] MEDS: Metoprolol Tartrate 25 MG TAB PO SCH (21:47)
[2018-02-09 04:21] LABS: Anion Gap 9 mmol/L (10-20); BUN (Urea Nitrogen) 13 mg/dL (8.9-20.6); Calc. Creatinine Clearance 203 mL/min (70-130); Calcium 7.9 mg/dL (7.8-10.44); Carbon Dioxide 27 mmol/L (22-29); Chloride 97 mmol/L (98-107); Estimated GFR-MDRD Greater than 90; Glucose 336 mg/dL (70-105); Sodium 129 mmol/L (136-145)
[2018-02-09 04:42] LABS: HBSAB Concentration 1.51 mIU/mL; HBSAg Index 0.19 S/CO (0-0.99); Hep B Core Total Ab Non-Reactive (NonReactive); Hep B Core Total Index 0.04 S/CO (0-0.79); Hep B Surf AB Non-Reactive (NonReactive); Hep B Surf Ag Non-Reactive S/CO (NonReactive); Hep C IgG Ab Non-Reactive (NonReactive); Hep C Index 0.04 S/CO (0-0.79)
[2018-02-09 04:48] LABS: Band 6 % (5-11); Hemoglobin 7.5 g/dL (14.0-18.0); Lymphocytes 2 % (21-51); MDiff Complete? YES; Mean Corpuscular HGB CONC 33.4 g/dL (32.0-36.0); Mean Corpuscular Hemoglobin 31.1 pg (27.0-31.0); Mean Platelet Volume 8.3 fL (7.4-10.4); Monocytes 5 % (0-10); Myelocyte 2 % (0-0); Neutrophil 85 % (42-75); Platelet Count 369 thou/uL (130-400); Polychromasia MODERATE = 3-4 cells (100X) (0-2/hpf); RBC Distribution Width 14.8 % (11.5-14.5); White Blood Cell (WBC) Count 21.5 thou/uL (4.8-10.8)
[2018-02-09] MEDS: HumaLOG 300 UNITS/3 ML VIAL SC PRN ×3 (05:42→22:42)
[2018-02-09] MEDS ORDERED: Furosemide 20 MG/2 ML VIAL SLOW IVP SCH (09:00)
[2018-02-09] MEDS: Calcium Carbonate + Vit D 1 TAB PO SCH ×2 (09:12→16:40)
[2018-02-09] MEDS: Famotidine 20 MG TAB PO SCH ×2 (09:12→21:27)
[2018-02-09] MEDS: Mesalamine DR 400 mg Capsule PO SCH ×3 (09:12→21:27)
[2018-02-09] MEDS: Metoprolol Tartrate 25 MG TAB PO SCH (09:12)
--- NOTE | 2018-02-09 11:36 | PDOC.CTH ---
Cardiology Progress Note - Subjective No current complaints. Still with difficulty with rate control on CCB BB - Objective Vital Signs Temp Pulse Resp BP BP Pulse Ox 02/09/18 11:12 97.8 F 131 H 16 115/89 02/09/18 07:15 97.1 F L 110 H 18 106/73 96 02/09/18 04:14 97.5 F L 82 17 125/87 96 02/09/18 00:24 97.8 F 82 16 132/87 97 Admit Weight 232 lb 3 oz Weight 235 lb 12.8 oz 02/08/18 02/09/18 02/10/18 06:59 06:59 06:59 Intake Total 1380 939 Output Total 250 Balance 1130 939 - Physical Examination General/Neuro: alert & oriented x3, NAD Neck: carotid US brisk, no JVD present Lungs: unlabored respirations Heart: other: (irr) Abdomen: no HSM, NT/ND, soft Extremities: + edema B - Labs Result Diagrams: 02/09/18 03:48 02/09/18 03:48 - Assessment/Plan Afib with RVR Ulcerative colitis HTN GI bleed Difficulty wtith rate control continue to increase BB for now already on 360mg diltiazem Add digoxin
[2018-02-09] MEDS: Digoxin 0.25 MG TAB PO SCH ×2 (11:56→17:46)
--- NOTE | 2018-02-09 12:14 | PRG ---
DATE OF SERVICE: 02/09/2018 SERVICE: Pulmonary Medicine. INTERVAL HISTORY: The patient is doing really well from a respiratory standpoint. He denies any lucian st pain, nausea, vomiting, fevers or chills. His lower extremity swelling is much improved. Otherwi se, there has been no interval change to his condition. His white blood cell count is actually trend ing upward currently. PHYSICAL EXAMINATION: VITAL SIGNS: Afebrile currently. Pulse 131, blood pressure 115/89, respirations 16, saturation 96% on room air. GENERAL: The patient is awake and alert, in no apparent distress. LUNGS: Excellent air entry. Dependent crackles are minimal. HEART: Tachycardic. Irregular. ABDOMEN: Soft, nontender, nondistended. Bowel sounds are positive. MUSCULOSKELETAL: No cyanosis or clubbing. There is trace to 1+ pitting in the bilateral lower extre mities. NEUROLOGIC: Grossly nonfocal. LABORATORY DATA: WBC 21.5, hemoglobin 7.5, platelets 369,000. Neutrophil count is 85%. The bands a re only 6%. Sodium 129 and gently down trending, chloride 97. Basic metabolic profile is otherwise unremarkable. Blood sugar ranges from 218-459. ASSESSMENT: 1. Ulcerative colitis flare. 2. Acute blood loss anemia, status post 7 units of blood transfusion. 3. Atrial fibrillation/flutter with rapid ventricular response. 4. Obstructive sleep apnea, suspected. 5. Hyponatremia. DISCUSSION AND PLAN: The patient is stable for transition out of the ICU to the telemetry unit. We will continue following sodiums through time. We will give him a fluid restriction. [facility] will continue to follow along if he remains in this location. That being said, when he goes to the floor, I will sign off.
[2018-02-09] MEDS ORDERED: Insulin Glargine 10 UNITS in Pre-Filled Syringe 1 EACH SC SCH (12:45)
[2018-02-09] MEDS: Diltiazem 125 MG in Sodium Chloride 0.9% 100 ML IVPB SCH (16:38)
[2018-02-09] MEDS: HumaLOG 300 UNITS/3 ML VIAL SC SCH (16:39)
--- NOTE | 2018-02-09 16:46 | PDOC.PN ---
- Subjective Encounter Start Date: 02/09/18 Encounter Start Time: 14:30 Subjective: pt up in bed no complains - Objective Resuscitation Status: Resuscitation Status FULL:Full Resuscitation Vital Signs & Weight: Vital Signs (12 hours) Temp Pulse Resp BP Pulse Ox 02/09/18 15:29 98.0 F 95 15 120/82 96 02/09/18 11:56 124 H 02/09/18 11:12 97.8 F 131 H 16 115/89 02/09/18 08:00 96 02/09/18 07:15 97.1 F L 110 H 18 106/73 96 Weight Admit Weight 232 lb 3 oz Weight 235 lb 12.8 oz Most Recent Monitor Data Heart Rate from ECG 97 NIBP 133/95 Respiration from ECG 14 I&O: 02/08/18 02/09/18 02/10/18 06:59 06:59 06:59 Intake Total 1380 939 Output Total 250 Balance 1130 939 Result Diagrams: 02/09/18 03:48 02/09/18 03:48 Additional Labs: Accuchecks 02/09/18 02/09/18 02/08/18 16:26 10:31 20:19 POC Glucose 294 H 459 H 332 H Phys Exam - Physical Examination Neck: no nodes, no JVD, supple, full ROM Respiratory: no wheezing, no rales, no rhonchi, wheezing present, clear to auscultation bilateral Cardiovascular: RRR, no significant murmur, no rub, gallop, irregular Dx/Plan (1) Exacerbation of ulcerative colitis Code(s): K51.90 - ULCERATIVE COLITIS, UNSPECIFIED, WITHOUT COMPLICATIONS Status: Acute (2) Atrial fibrillation with RVR Code(s): I48.91 - UNSPECIFIED ATRIAL FIBRILLATION Status: Acute (3) Obesity (BMI 30.0-34.9) Code(s): E66.9 - OBESITY, UNSPECIFIED Status: Chronic (4) Anemia due to acute blood loss Code(s): D62 - ACUTE POSTHEMORRHAGIC ANEMIA Status: Acute - Plan pt's blood sugars are high will adjust insulin -: pt's heart rate is still high on multliple agents -: pt on steroids and mesalamine per gi -: hh low normal * . Review of Systems - Review of Systems Respiratory: negative: Cough, Dry, Shortness of Breath, Hemoptysis, SOB with Excertion, Pleuritic Pain, Sputum, Wheezing Cardiovascular: negative: chest pain, palpitations, orthopnea, paroxysmal nocturnal dyspnea, edema, light headedness, other Gastrointestinal: negative: Nausea, Vomiting, Abdominal Pain, Diarrhea, Constipation, Melena, Hematochezia, Other Genitourinary: negative: Dysuria, Frequency, Incontinence, Hematuria, Retention , Other - Medications/Allergies Allergies/Adverse Reactions: Allergies Allergy/AdvReac Type Severity Reaction Status Date / Time No Known Allergies Allergy Verified 02/03/18 21:55 Medications: Current Medications Acetaminophen (Tylenol) 650 mg PO Q4H PRN PRN Reason: Headache/Fever/Mild Pain (1-3) Last Admin: 02/05/18 01:51 Dose: 650 mg Hydrocodone Bitart/Acetaminophen ([place] 5/325) 1 tab PO Q4H PRN PRN Reason: Moderate Pain (4-6) Calcium/Vitamin D (Caltrate 600 + Vit D) 1 tab PO BID-[facility] Last Admin: 02/09/18 16:40 Dose: 1 tab Dextrose/Water (Dextrose 50%) 25 gm SLOW IVP PRN PRN PRN Reason: Hypoglycemia Digoxin (Lanoxin) 0.25 mg PO Q6HR [facility] Stop: 02/10/18 06:01 Last Admin: 02/09/18 11:56 Dose: 0.25 mg Diltiazem HCl (Cardizem) 90 mg PO Q6HR [facility] Last Admin: 02/09/18 11:57 Dose: 90 mg Famotidine (Pepcid) 20 mg PO BID [facility] Last Admin: 02/09/18 09:12 Dose: 20 mg Glucagon (Glucagon) 1 mg IM PRN PRN PRN Reason: Hypoglycemia Guaifenesin (Robitussin Sf) 200 mg PO Q4H PRN PRN Reason: Cough Hydralazine HCl (Apresoline) 10 mg SLOW IVP Q4H PRN PRN Reason: Systolic BP > 180 Diltiazem HCl 125 mg/ Sodium (Chloride) 125 mls @ 0 mls/hr IVPB INF [facility]; Protocol Last Admin: 02/09/18 16:38 Dose: 125 mls Dextrose/Water (D5w) 1,000 mls @ 0 mls/hr IV .Q0M PRN PRN Reason: Hypoglycemia Insulin Glargine 10 units/ (Miscellaneous Medication) 0.1 mls @ 0 mls/hr SC QAM [facility] Insulin Human Lispro (Humalog) 0 units SC .MILD SLIDING SCALE PRN PRN Reason: Mild Correctional Scale Last Admin: 02/09/18 11:15 Dose: 6 unit Insulin Human Lispro (Humalog) 4 units SC AC [facility] Last Admin: 02/09/18 16:39 Dose: 4 unit Loratadine (Claritin) 10 mg PO DAILYPRN PRN PRN Reason: Sinus Symptoms Mesalamine (Delzicol Dr) 800 mg PO TID [facility] Last Admin: 02/09/18 14:49 Dose: 800 mg Metoprolol Tartrate (Lopressor) 50 mg PO BID [facility] Ondansetron HCl (Zofran) 4 mg IVP Q6H PRN PRN Reason: Nausea/Vomiting Last Admin: 02/05/18 09:02 Dose: 4 mg Ondansetron HCl (Zofran Odt) 4 mg PO Q6H PRN PRN Reason: Nausea/Vomiting Phenol (Chloraseptic [place] 180 Ml Bot) 0 ml PO PRN PRN PRN Reason: Sore Throat Prednisone (Prednisone) 60 mg PO QAM-[facility] Sodium Chloride ([place] Nasal [place] 0.65%) 0 ml EA NARE QIDPRN PRN PRN Reason: Nasal Congestion Zolpidem Tartrate (Ambien) 5 mg PO HSPRN PRN PRN Reason: Insomnia
[2018-02-09] MEDS: Metoprolol Tartrate 50 MG TAB PO SCH (21:28)
--- NOTE | 2018-02-09 22:12 | PRG ---
DATE OF SERVICE: 02/09/2018 REASON FOR CONSULTATION: Ulcerative colitis flare. SUBJECTIVE: Today, the patient states that he is doing very well with no episodes of hematochezia an d only minor abdominal pain. Currently, he denies any nausea, vomiting, fevers, chills, abdominal pa in, GI bleeding, constipation or diarrhea. He has not had a bowel movement since the colonoscopy. OBJECTIVE: VITAL SIGNS: Temperature 98.5, pulse 110, blood pressure 113/81, respiratory rate 18, satting 95% on room air. GENERAL: The patient was sitting at bedside in no acute distress. Alert and oriented x4. CARDIOVASCULAR: Tachycardic rate with possibly irregularly irregular rhythm. RESPIRATORY: Clear to auscultation bilaterally. ABDOMEN: Normoactive bowel sounds, soft, nontender, nondistended. EXTREMITIES: No cyanosis, clubbing or edema. LABORATORY DATA: CBC with white blood cell count of 21.5, hemoglobin 7.5, hematocrit 22.3, platelets 369. Chemistry with sodium of 129, potassium 4.0, chloride 97, CO2 27, BUN 13, creatinine 0.76, glu cose 336. IMAGING DATA: No current GI imaging is available for review. ASSESSMENT AND PLAN: The patient is a 37-year-old male with past medical history of ulcerative colit is and possible atrial fibrillation presenting with ulcerative colitis flare. ULCERATIVE COLITIS FLARE: The patient was admitted to [facility] due to increased abdominal pain, but more importantly significant hematochezia for which he received multiple blood transfusion s during this hospitalization. Colonoscopy performed on 02/07/2018 was consistent with severe ulcera tive colitis including innumerable inflammatory pseudopolyps with biopsies taken at that time of a re presentative sample of these polyps. However, on high dose steroids, he has responded well to treatm ent with complete resolution of his abdominal pain as well as resolution of his hematochezia with hem oglobin and hematocrit remaining stable over the last 24-48 hours. RECOMMENDATIONS: 1. We would continue to trend hemoglobin and hematocrit and transfuse as necessary to maintain an he moglobin and hematocrit of 7/21. 2. Continue to monitor clinically for signs of active gastrointestinal bleeding. 3. Continue mesalamine 2.4 grams daily. 4. We will discontinue methylprednisolone IV steroid infusions, but change the patient to prednisone 60 mg daily. I would continue this regimen until seen in the outpatient GI Clinic with taper plan a t that time . 5. Labs have already been ordered prior to the initiation of immunomodulator or biologic therapy. I will follow up these labs when seen in the GI Clinic as an outpatient. From a GI standpoint, this patient is stable to be discharged to follow up in the GI Clinic within 1- 2 weeks. Please call with any additional questions.
[2018-02-10] MEDS: Digoxin 0.25 MG TAB PO SCH ×2 (00:13→06:06)
[2018-02-10 05:07] LABS: Anion Gap 12 mmol/L (10-20); BUN (Urea Nitrogen) 13 mg/dL (8.9-20.6); Calc. Creatinine Clearance 201 mL/min (70-130); Calcium 8.4 mg/dL (7.8-10.44); Carbon Dioxide 26 mmol/L (22-29); Chloride 96 mmol/L (98-107); Estimated GFR-MDRD Greater than 90; Glucose 273 mg/dL (70-105); Potassium 3.8 mmol/L (3.5-5.1); Sodium 130 mmol/L (136-145)
[2018-02-10 05:45] LABS: Band 8 % (5-11); Hemoglobin 7.9 g/dL (14.0-18.0); Lymphocytes 8 % (21-51); MDiff Complete? YES; Mean Corpuscular Volume 93.5 fL (78.0-98.0); Mean Platelet Volume 8.4 fL (7.4-10.4); Neutrophil 84 % (42-75); Platelet Count 463 thou/uL (130-400); RBC Distribution Width 14.5 % (11.5-14.5); Red Blood Cell (RBC) Count 2.64 mill/uL (4.70-6.10); White Blood Cell (WBC) Count 32.4 thou/uL (4.8-10.8)
[2018-02-10] MEDS: HumaLOG 300 UNITS/3 ML VIAL SC SCH ×3 (07:05→17:44)
[2018-02-10] MEDS: HumaLOG 300 UNITS/3 ML VIAL SC PRN ×2 (07:05→17:44)
[2018-02-10] MEDS ORDERED: Insulin Glargine 10 UNITS in Pre-Filled Syringe 1 EACH SC SCH ×2 (09:00→21:00)
[2018-02-10] MEDS: Famotidine 20 MG TAB PO SCH ×2 (09:12→21:13)
[2018-02-10] MEDS: predniSONE 20 MG TAB PO SCH (09:12)
[2018-02-10] MEDS: Calcium Carbonate + Vit D 1 TAB PO SCH ×2 (09:12→17:43)
[2018-02-10] MEDS: Insulin Glargine 15 UNITS in Pre-Filled Syringe 1 EACH SC SCH (09:13)
[2018-02-10] MEDS: Mesalamine DR 400 mg Capsule PO SCH ×3 (09:13→21:12)
[2018-02-10] MEDS: Metoprolol Tartrate 50 MG TAB PO SCH ×2 (09:13→21:13)
[2018-02-10 11:46] LABS: Reference Lab Name LABCORP
[2018-02-10 11:48] LABS: Ref Lab Test Ordered TPMT
--- NOTE | 2018-02-10 13:18 | PRG ---
DATE OF SERVICE: 02/10/2018 SERVICE: Pulmonary Medicine. INTERVAL HISTORY: The patient is doing fine from a respiratory standpoint. He is breathing comfortably. He denies any current chest pain, fevers or chills. He has a little bit of abdominal discomfort and has an aversion for food this morning. He believes he is having some gas pain. He had not had a bowel movement for several days. PHYSICAL EXAMINATION: VITAL SIGNS: Afebrile, pulse 95, blood pressure 116/90, respirations 18, saturation 94% on room air. GENERAL: The patient is awake and alert, in no apparent distress. LUNGS: Excellent air entry. I do not appreciate any wheezing, rhonchi or crackles. HEART: Normal rate, regular. ABDOMEN: Soft. Tenderness to palpation is mild. No rebound or guarding is present. MUSCULOSKELETAL: No cyanosis or clubbing. There is no pitting in the bilateral lower extremities. NEUROLOGIC: Grossly nonfocal. LABORATORY DATA: WBC 32.4, hemoglobin 7.9, platelets 463,000. Sodium 130. Basic metabolic profile is otherwise unremarkable. C. diff antigen and toxin is negative. All stool studies are negative to date. ASSESSMENT: 1. Ulcerative colitis flare. 2. Acute blood loss anemia, status post 7 units of blood transfusion. 3. Atrial fibrillation/flutter with rapid ventricular response. 4. Obstructive sleep apnea, suspected. 5. Hyponatremia, improving. DISCUSSION AND PLAN: I will put the patient on some simethicone. We are going to trend his white blood cell count through time. If he has any additional increasing signs of sepsis, [place] culture and empiric antibiotics covering abdominal jami will be performed. Pulmonary Critical Care will continue to follow along. He remains stable for transition to the floor, but we need to continue to monitor for increasing signs of infection. My suspicion is that we are dealing with a leukemoid reaction. MTDD
[2018-02-10] MEDS ORDERED: Metoprolol Tartrate 50 MG TAB PO SCH (13:30)
--- NOTE | 2018-02-10 13:38 | PDOC.CTH ---
Cardiology Progress Note - Subjective No complaints. Doing well. - Objective Vital Signs Temp Pulse Resp BP BP Pulse Ox 02/10/18 11:33 98.3 F 95 116/90 94 L 02/10/18 07:34 97.8 F 108 H 134/82 96 02/10/18 06:06 91 02/10/18 04:11 97.9 F 91 18 109/83 100 Admit Weight 232 lb 3 oz Weight 233 lb 02/09/18 02/10/18 02/11/18 06:59 06:59 06:59 Intake Total 939 1468.3 Balance 939 1468.3 - Physical Examination General/Neuro: alert & oriented x3 Neck: carotid US brisk, no JVD present Lungs: unlabored respirations Heart: other: (irr) Abdomen: NT/ND, soft Extremities: + femoral B - Labs Result Diagrams: 02/10/18 03:52 02/10/18 03:52 - Assessment/Plan afib GI bleed Increase BB Wean down IV CCB No NOAC Ok to tele
[2018-02-10] MEDS: Simethicone Chewable 80 MG TAB PO SCH ×2 (14:15→21:13)
--- NOTE | 2018-02-10 17:06 | PDOC.PN ---
- Subjective Encounter Start Date: 02/10/18 Encounter Start Time: 14:45 Subjective: pt up in bed complains of abdominal pain - Objective Resuscitation Status: Resuscitation Status FULL:Full Resuscitation Vital Signs & Weight: Vital Signs (12 hours) Temp Pulse BP Pulse Ox 02/10/18 11:33 98.3 F 95 116/90 94 L 02/10/18 07:34 97.8 F 108 H 134/82 96 02/10/18 06:06 91 Weight Admit Weight 232 lb 3 oz Weight 233 lb Most Recent Monitor Data Heart Rate from ECG 97 NIBP 133/95 Respiration from ECG 14 I&O: 02/09/18 02/10/18 02/11/18 06:59 06:59 06:59 Intake Total 939 1468.3 Balance 939 1468.3 Result Diagrams: 02/10/18 03:52 02/10/18 03:52 Additional Labs: Accuchecks 02/09/18 19:54 POC Glucose 286 H Phys Exam - Physical Examination Neck: no nodes, no JVD, supple, full ROM Respiratory: no wheezing, no rales, no rhonchi, wheezing present, clear to auscultation bilateral Cardiovascular: RRR, no significant murmur, no rub, gallop, irregular Gastrointestinal: soft, positive bowel sounds pt has mild abd pain on palpation Musculoskeletal: no edema, pulses present, edema present Dx/Plan (1) Exacerbation of ulcerative colitis Code(s): K51.90 - ULCERATIVE COLITIS, UNSPECIFIED, WITHOUT COMPLICATIONS Status: Acute (2) Atrial fibrillation with RVR Code(s): I48.91 - UNSPECIFIED ATRIAL FIBRILLATION Status: Acute (3) Obesity (BMI 30.0-34.9) Code(s): E66.9 - OBESITY, UNSPECIFIED Status: Chronic (4) Anemia due to acute blood loss Code(s): D62 - ACUTE POSTHEMORRHAGIC ANEMIA Status: Acute - Plan pt has significant pain to his abd -: will get kub -: pt now on po steroids -: rate stable on bb/ccb/digoxin * . Review of Systems - Review of Systems Respiratory: negative: Cough, Dry, Shortness of Breath, Hemoptysis, SOB with Excertion, Pleuritic Pain, Sputum, Wheezing Cardiovascular: negative: chest pain, palpitations, orthopnea, paroxysmal nocturnal dyspnea, edema, light headedness, other Gastrointestinal: Abdominal Pain Genitourinary: negative: Dysuria, Frequency, Incontinence, Hematuria, Retention , Other - Medications/Allergies Allergies/Adverse Reactions: Allergies Allergy/AdvReac Type Severity Reaction Status Date / Time No Known Allergies Allergy Verified 02/03/18 21:55 Medications: Current Medications Acetaminophen (Tylenol) 650 mg PO Q4H PRN PRN Reason: Headache/Fever/Mild Pain (1-3) Last Admin: 02/05/18 01:51 Dose: 650 mg Hydrocodone Bitart/Acetaminophen ([place] 5/325) 1 tab PO Q4H PRN PRN Reason: Moderate Pain (4-6) Calcium/Vitamin D (Caltrate 600 + Vit D) 1 tab PO BID-[facility] Last Admin: 02/10/18 09:12 Dose: 1 tab Dextrose/Water (Dextrose 50%) 25 gm SLOW IVP PRN PRN PRN Reason: Hypoglycemia Diltiazem HCl (Cardizem) 90 mg PO Q6HR [facility] Last Admin: 02/10/18 14:13 Dose: 90 mg Famotidine (Pepcid) 20 mg PO BID [facility] Last Admin: 02/10/18 09:12 Dose: 20 mg Glucagon (Glucagon) 1 mg IM PRN PRN PRN Reason: Hypoglycemia Guaifenesin (Robitussin Sf) 200 mg PO Q4H PRN PRN Reason: Cough Hydralazine HCl (Apresoline) 10 mg SLOW IVP Q4H PRN PRN Reason: Systolic BP > 180 Diltiazem HCl 125 mg/ Sodium (Chloride) 125 mls @ 0 mls/hr IVPB INF [facility]; Protocol Last Admin: 02/09/18 16:38 Dose: 125 mls Dextrose/Water (D5w) 1,000 mls @ 0 mls/hr IV .Q0M PRN PRN Reason: Hypoglycemia Insulin Glargine 10 units/ (Miscellaneous Medication) 0.1 mls @ 0 mls/hr SC HS [facility] Insulin Glargine 15 units/ (Miscellaneous Medication) 0.15 mls @ 0 mls/hr SC QAM [facility] Last Admin: 02/10/18 09:13 Dose: 0.15 mls Insulin Human Lispro (Humalog) 0 units SC .MILD SLIDING SCALE PRN PRN Reason: Mild Correctional Scale Last Admin: 02/10/18 07:05 Dose: 3 unit Insulin Human Lispro (Humalog) 4 units SC [facility] Last Admin: 02/10/18 13:03 Dose: Not Given Loratadine (Claritin) 10 mg PO DAILYPRN PRN PRN Reason: Sinus Symptoms Mesalamine (Delzicol Dr) 800 mg PO TID [facility] Last Admin: 02/10/18 14:14 Dose: 800 mg Metoprolol Tartrate (Lopressor) 75 mg PO BID [facility] Ondansetron HCl (Zofran) 4 mg IVP Q6H PRN PRN Reason: Nausea/Vomiting Last Admin: 02/05/18 09:02 Dose: 4 mg Ondansetron HCl (Zofran Odt) 4 mg PO Q6H PRN PRN Reason: Nausea/Vomiting Phenol (Chloraseptic [place] 180 Ml Bot) 0 ml PO PRN PRN PRN Reason: Sore Throat Prednisone (Prednisone) 60 mg PO [facility] Last Admin: 02/10/18 09:12 Dose: 60 mg Simethicone (Mylicon Chewable) 80 mg PO TID [facility] Stop: 02/11/18 21:01 Last Admin: 02/10/18 14:15 Dose: 80 mg Sodium Chloride ([place] Nasal [place] 0.65%) 0 ml EA NARE QIDPRN PRN PRN Reason: Nasal Congestion Zolpidem Tartrate (Ambien) 5 mg PO HSPRN PRN PRN Reason: Insomnia
[2018-02-10] MEDS ORDERED: Magnesium Citrate 300 ML BOT PO SCH (17:15)
--- NOTE | 2018-02-10 17:27 | RAD ---
FRONTAL VIEW ABDOMEN SERIES/KUB: 02/10/18 INDICATION: Abdominal pain. FINDINGS: There is a large volume of retained fecal material of the colon. There is mild dilatation of visualiz ed small bowel as well as suggestion of mural edema. Upper abdomen is not imaged for comment. There are vascular calcifications. IMPRESSION: 1. Dilatation of small bowel along with findings to indicate mural edema. This could be on the b asis of an acute inflammatory process. Findings may relate in part to mechanical structure versus ile us. Consider CT exam of the abdomen utilizing enteric and IV contrast for further assessment. 2. Constipation. POS: [facility]
[2018-02-10] MEDS: Diltiazem 125 MG in Sodium Chloride 0.9% 100 ML IVPB SCH (18:38)
--- NOTE | 2018-02-10 19:02 | PRG ---
DATE OF SERVICE: 02/10/2018 REASON FOR CONSULTATION: Ulcerative colitis flare. SUBJECTIVE: Overnight, the patient had a sudden increased worsening of suprapubic abdominal pain dick t radiated to the left lower quadrant, characterized as a sharp stabbing type sensation. He states t hat since the colonoscopy approximately 2-3 days ago, he has not had a bowel movement despite being a ble to tolerate a solid diet. Otherwise, he denies any nausea, vomiting, fevers, chills, GI bleeding or diarrhea. OBJECTIVE: VITAL SIGNS: Temperature 98.3, pulse 95, blood pressure 116/90, respiratory rate 18, satting 94% on room air. GENERAL: The patient was lying in bed, in no acute distress. Alert and oriented x4. CARDIOVASCULAR: Regular rate and rhythm. RESPIRATORY: Clear to auscultation bilaterally. ABDOMEN: Normoactive bowel sounds, soft, nondistended. Tenderness to palpation in the suprapubic an d left lower quadrant. EXTREMITIES: No cyanosis, clubbing or edema. LABORATORY DATA: CBC with a white blood cell count of 32.4, hemoglobin 7.9, hematocrit 24.7, platele ts 463. Chemistry with sodium of 130, potassium 3.8, chloride 96, CO2 26, BUN 13, creatinine 0.77, g lucose 273. IMAGING DATA: No current GI imaging is available for review. ASSESSMENT AND PLAN: The patient is a 37-year-old male with past medical history of ulcerative colit is and atrial fibrillation presenting with ulcerative colitis flare. Ulcerative colitis flare: The patient was initially admitted to [facility] due to increased abdominal pain, but more importantly significant hematochezia, for which he received multiple transf usions during this hospitalization. Colonoscopy performed on 02/07/2018, was consistent with severe ulcerative colitis including innumerable inflammatory pseudopolyps. Biopsies of these polyps were al l consistent with inflammatory pseudopolyps with no evidence of dysplasia or malignancy. During the course of this hospitalization, he has responded well to high dose steroids with initially complete r esolution of his abdominal pain and hematochezia. However, over the last 12-18 hours, he has had wor sening abdominal pain in light of not having a bowel movement since 02/07/2018 making constipation mo re likely etiology of his abdominal pain. RECOMMENDATIONS: 1. We would continue to trend H&H and transfuse as necessary to maintain an H&H of 11/15. 2. Continue mesalamine 2.4 grams daily. 3. Continue prednisone 60 mg daily. We would discontinue methylprednisolone in favor of continuing prednisone 60 mg daily. I will continue this regimen until seen in the outpatient GI clinic with a latosha gonzalez to taper his steroids at that time. 4. We will give the patient a 1 time dose of magnesium citrate for treatment of his constipation. 5. I will follow up on the labs already ordered prior to the initiation of immunomodulator or biolog ic therapy. If the patient has a bowel movement and has had resolution of his abdominal pain, the patient is stab le from a GI standpoint to be discharged for followup in the GI clinic within 1-2 weeks. Please call with any additional questions.
[2018-02-11 05:30] LABS: Anion Gap 12 mmol/L (10-20); BUN (Urea Nitrogen) 10 mg/dL (8.9-20.6); Calc. Creatinine Clearance 228 mL/min (70-130); Calcium 8.4 mg/dL (7.8-10.44); Carbon Dioxide 30 mmol/L (22-29); Chloride 95 mmol/L (98-107); Estimated GFR-MDRD Greater than 90; Glucose 139 mg/dL (70-105); Potassium 3.6 mmol/L (3.5-5.1); Sodium 133 mmol/L (136-145)
[2018-02-11] MEDS: Acetaminophen 325 MG TAB PO PRN (06:07)
[2018-02-11 06:11] LABS: Band 4 % (5-11); Hemoglobin 8.8 g/dL (14.0-18.0); Lymphocytes 5 % (21-51); MDiff Complete? YES; Mean Corpuscular HGB CONC 32.3 g/dL (32.0-36.0); Mean Corpuscular Volume 92.9 fL (78.0-98.0); Mean Platelet Volume 7.9 fL (7.4-10.4); Monocytes 3 % (0-10); Myelocyte 1 % (0-0); Neutrophil 87 % (42-75); Nucleated RBC 1 % (0); PLT Morphology Comment Appears Increased; Platelet Count 479 thou/uL (130-400); RBC Distribution Width 14.5 % (11.5-14.5); Red Blood Cell (RBC) Count 2.93 mill/uL (4.70-6.10); White Blood Cell (WBC) Count 32.8 thou/uL (4.8-10.8)
--- NOTE | 2018-02-11 07:32 | PDOC.CTH ---
Cardiology Progress Note - Subjective No complaints thsi am - Objective Vital Signs Temp Pulse Resp BP Pulse Ox 02/11/18 03:50 100.5 F H 120 H 20 122/84 97 02/10/18 19:45 98.5 F 91 16 122/66 97 Admit Weight 232 lb 3 oz Weight 233 lb 02/10/18 02/11/18 02/12/18 06:59 06:59 06:59 Intake Total 1468.3 955 Output Total 900 Balance 1468.3 55 - Physical Examination General/Neuro: alert & oriented x3, NAD Neck: carotid US brisk, no JVD present Lungs: CTA, unlabored respirations Heart: other: (irr) Abdomen: NT/ND, soft Extremities: + femoral B - Labs Result Diagrams: 02/11/18 04:50 02/11/18 04:50 - Assessment/Plan afib GI bleed ulcerative colitis Still with difficulty on control of afib on BB and CCB Pt with intermittent episodes of SR noted. EP consult to given recommendations
[2018-02-11] MEDS: Mesalamine DR 400 mg Capsule PO SCH ×3 (08:53→22:11)
[2018-02-11] MEDS: predniSONE 20 MG TAB PO SCH (08:54)
[2018-02-11] MEDS: Insulin Glargine 15 UNITS in Pre-Filled Syringe 1 EACH SC SCH (08:54)
[2018-02-11] MEDS: Simethicone Chewable 80 MG TAB PO SCH ×3 (08:54→22:12)
[2018-02-11] MEDS: HumaLOG 300 UNITS/3 ML VIAL SC SCH ×3 (08:54→18:23)
[2018-02-11] MEDS: Calcium Carbonate + Vit D 1 TAB PO SCH ×2 (08:54→17:22)
[2018-02-11] MEDS: Famotidine 20 MG TAB PO SCH ×2 (08:55→22:12)
[2018-02-11] MEDS: Metoprolol Tartrate 50 MG TAB PO SCH ×2 (08:55→22:12)
--- NOTE | 2018-02-11 11:35 | PDOC.PN ---
- Subjective Encounter Start Date: 02/11/18 Encounter Start Time: 11:15 Subjective: pt up in bed feels better today - Objective Resuscitation Status: Resuscitation Status FULL:Full Resuscitation Vital Signs & Weight: Vital Signs (12 hours) Temp Pulse Resp BP BP Pulse Ox 02/11/18 08:00 94 L 02/11/18 07:20 98.8 F 107 H 20 140/73 94 L 02/11/18 03:50 100.5 F H 120 H 20 122/84 97 Weight Admit Weight 232 lb 3 oz Weight 234 lb 2 oz Most Recent Monitor Data Heart Rate from ECG 97 NIBP 133/95 Respiration from ECG 14 I&O: 02/10/18 02/11/18 02/12/18 06:59 06:59 06:59 Intake Total 1468.3 2010 Output Total 900 Balance 1468.3 1110 Result Diagrams: 02/11/18 04:50 02/11/18 04:50 Additional Labs: Accuchecks 02/11/18 02/11/18 02/10/18 10:42 06:16 20:59 POC Glucose 161 H 141 H 188 H 02/10/18 02/10/18 02/10/18 17:25 10:35 06:02 POC Glucose 247 H 168 H 208 H Phys Exam - Physical Examination Respiratory: no wheezing, no rales, no rhonchi, wheezing present, clear to auscultation bilateral Cardiovascular: RRR, no significant murmur, no rub, gallop, irregular Gastrointestinal: soft, non-tender, no distention, positive bowel sounds Musculoskeletal: no edema, pulses present, edema present Dx/Plan (1) Exacerbation of ulcerative colitis Code(s): K51.90 - ULCERATIVE COLITIS, UNSPECIFIED, WITHOUT COMPLICATIONS Status: Acute (2) Atrial fibrillation with RVR Code(s): I48.91 - UNSPECIFIED ATRIAL FIBRILLATION Status: Acute (3) Obesity (BMI 30.0-34.9) Code(s): E66.9 - OBESITY, UNSPECIFIED Status: Chronic (4) Anemia due to acute blood loss Code(s): D62 - ACUTE POSTHEMORRHAGIC ANEMIA Status: Acute - Plan abdomen pain improved after bm -: pt's HR still hard to control on 3 agents -: EP consulted -: leukocytosis most likley due to steroids will monitor -: CHADvas score is 1 no AC * . Review of Systems - Review of Systems Respiratory: negative: Cough, Dry, Shortness of Breath, Hemoptysis, SOB with Excertion, Pleuritic Pain, Sputum, Wheezing Cardiovascular: negative: chest pain, palpitations, orthopnea, paroxysmal nocturnal dyspnea, edema, light headedness, other Gastrointestinal: negative: Nausea, Vomiting, Abdominal Pain, Diarrhea, Constipation, Melena, Hematochezia, Other Genitourinary: negative: Dysuria, Frequency, Incontinence, Hematuria, Retention , Other - Medications/Allergies Allergies/Adverse Reactions: Allergies Allergy/AdvReac Type Severity Reaction Status Date / Time No Known Allergies Allergy Verified 02/03/18 21:55 Medications: Current Medications Acetaminophen (Tylenol) 650 mg PO Q4H PRN PRN Reason: Headache/Fever/Mild Pain (1-3) Last Admin: 02/11/18 06:07 Dose: 650 mg Hydrocodone Bitart/Acetaminophen (Paradis 5/325) 1 tab PO Q4H PRN PRN Reason: Moderate Pain (4-6) Calcium/Vitamin D (Caltrate 600 + Vit D) 1 tab PO BID-[facility] Last Admin: 02/11/18 08:54 Dose: 1 tab Dextrose/Water (Dextrose 50%) 25 gm SLOW IVP PRN PRN PRN Reason: Hypoglycemia Diltiazem HCl (Cardizem) 90 mg PO Q6HR [facility] Last Admin: 02/11/18 06:04 Dose: 90 mg Famotidine (Pepcid) 20 mg PO BID [facility] Last Admin: 02/11/18 08:55 Dose: 20 mg Glucagon (Glucagon) 1 mg IM PRN PRN PRN Reason: Hypoglycemia Guaifenesin (Robitussin Sf) 200 mg PO Q4H PRN PRN Reason: Cough Hydralazine HCl (Apresoline) 10 mg SLOW IVP Q4H PRN PRN Reason: Systolic BP > 180 Diltiazem HCl 125 mg/ Sodium (Chloride) 125 mls @ 5 mls/hr IVPB INF [facility]; Protocol Last Admin: 02/10/18 18:38 Dose: 125 mls Dextrose/Water (D5w) 1,000 mls @ 0 mls/hr IV .Q0M PRN PRN Reason: Hypoglycemia Insulin Glargine 10 units/ (Miscellaneous Medication) 0.1 mls @ 0 mls/hr SC HS [facility] Last Admin: 02/10/18 21:14 Dose: 0.1 mls Insulin Glargine 15 units/ (Miscellaneous Medication) 0.15 mls @ 0 mls/hr SC QAM [facility] Last Admin: 02/11/18 08:54 Dose: 0.15 mls Insulin Human Lispro (Humalog) 0 units SC .MILD SLIDING SCALE PRN PRN Reason: Mild Correctional Scale Last Admin: 02/10/18 17:44 Dose: 3 unit Insulin Human Lispro (Humalog) 4 units SC AC [facility] Last Admin: 02/11/18 08:54 Dose: 4 unit Loratadine (Claritin) 10 mg PO DAILYPRN PRN PRN Reason: Sinus Symptoms Mesalamine (Delzicol Dr) 800 mg PO TID [facility] Last Admin: 02/11/18 08:53 Dose: 800 mg Metoprolol Tartrate (Lopressor) 75 mg PO BID [facility] Last Admin: 02/11/18 08:55 Dose: 75 mg Ondansetron HCl (Zofran) 4 mg IVP Q6H PRN PRN Reason: Nausea/Vomiting Last Admin: 02/05/18 09:02 Dose: 4 mg Ondansetron HCl (Zofran Odt) 4 mg PO Q6H PRN PRN Reason: Nausea/Vomiting Phenol (Chloraseptic [place] 180 Ml Bot) 0 ml PO PRN PRN PRN Reason: Sore Throat Prednisone (Prednisone) [address] [facility] Last Admin: 02/11/18 08:54 Dose: 60 mg Simethicone (Mylicon Chewable) 80 mg PO TID [facility] Stop: 02/11/18 21:01 Last Admin: 02/11/18 08:54 Dose: 80 mg Sodium Chloride ([place] Nasal [place] 0.65%) 0 ml EA NARE QIDPRN PRN PRN Reason: Nasal Congestion Zolpidem Tartrate (Ambien) 5 mg PO HSPRN PRN PRN Reason: Insomnia
[2018-02-11 12:17] LABS: HIV-1 Quantitative, RNA PCR <20 copies/mL (.)
--- NOTE | 2018-02-11 12:26 | PRG ---
DATE OF SERVICE: 02/11/2018 SERVICE: Pulmonary Medicine. INTERVAL HISTORY: The patient is doing great from a respiratory standpoint. He is actually breathin g very comfortably. His abdominal pain is completely resolved as of this morning. He has a great ap petite. He ate some food. He is not having any diarrhea. Otherwise, he feels like he is finally tu rned that corner is improving. PHYSICAL EXAMINATION: VITAL SIGNS: Afebrile currently. T-max overnight of 100.5. Pulse 107, blood pressure 140/73, respi rations 20, saturation 94% on room air. GENERAL: The patient is awake, alert, no apparent distress. LUNGS: Excellent air entry. There is no prolonged expiratory phase or wheezing present. HEART: Normal rate, regular. ABDOMEN: Soft, nontender, nondistended. Bowel sounds are positive. MUSCULOSKELETAL: No cyanosis or clubbing. There is 1+ pitting in the bilateral lower extremities. NEUROLOGIC: Grossly nonfocal. LABORATORY DATA: WBC 32.8, hemoglobin 8.8 and rebounding beautifully, platelets 479,000, neutrophil count is 87%, but the bands are dropping. Sodium 133, chloride 95, bicarbonate 30. Basic metabolic profile is otherwise unremarkable. All stool studies remain negative to date. IMAGING: Abdominal x-ray demonstrates some small bowel inflammatory changes. There is also constipa tion noted. ASSESSMENT: 1. Ulcerative colitis flare. 2. Acute blood loss anemia, status post 7 units of blood transfusion. 3. Atrial fibrillation/flutter with rapid ventricular response. 4. Obstructive sleep apnea, suspected. 5. Hyponatremia, improving. 6. Elevated white blood cell count, suspect leukemoid reaction. DISCUSSION AND PLAN: The patient feels absolutely fantastic. My suspicion is that this a leukemoid reaction secondary to healthy bone marrow response to a severe anemic event. If this is the case, th e white blood cell count to trend down naturally over the next day or two. That being said, if he garcia s increasing signs of sepsis or starts feeling worse, empiric antibiotics directed and abdominal issu es will be considered as well as neville culture. He is back into sinus rhythm this morning. He should stay in the hospital for an additional day or two until we know whether or not something infectious i s brewing.
[2018-02-11] MEDS: Dronedarone HCl 400 MG TAB PO SCH (17:22)
[2018-02-11] MEDS: HumaLOG 300 UNITS/3 ML VIAL SC PRN (17:23)
[2018-02-11] MEDS: Diltiazem 125 MG in Sodium Chloride 0.9% 100 ML IVPB SCH (18:26)
--- NOTE | 2018-02-11 18:32 | PRG ---
DATE OF SERVICE: 02/11/2018 REASON FOR CONSULTATION: Ulcerative colitis flare. SUBJECTIVE: Yesterday, the patient was having increased abdominal pain after not having a bowel move ment for approximately 3-4 days. He was given a bottle of magnesium citrate and with administration of the medication, he did have a large bowel movement with significant reduction in his abdominal lazarus n. Otherwise, he denies any nausea, vomiting, fevers, chills, GI bleeding, or diarrhea. OBJECTIVE: VITAL SIGNS: Temperature 99.2, pulse 89, blood pressure 118/73, respiratory rate is 16, satting 95% on room air. GENERAL: Patient is lying in bed in no acute distress. He is alert and oriented x4. CARDIOVASCULAR: Regular rate and rhythm. LUNGS: Clear to auscultation bilaterally. ABDOMEN: Normoactive bowel sounds, soft, nontender, nondistended. EXTREMITIES: No cyanosis, clubbing, or edema. LABORATORY DATA: CBC with a white blood cell count of 32.8, hemoglobin 8.8, hematocrit 27.2, platele ts 479. Chemistry with a sodium of 133, potassium 3.6, chloride 95, CO2 of 30, BUN 10, creatinine 0. 67, glucose 139. IMAGING DATA: No current GI imaging is available for review. ASSESSMENT AND PLAN: The patient is a 37-year-old male with past medical history of ulcerative colit is and atrial fibrillation presenting with ulcerative colitis flare. Ulcerative colitis flare. The patient was initially admitted to [facility] due to increased abdominal pain and signifi cant hematochezia that required multiple transfusions during this hospitalization. He ultimately und erwent a colonoscopy on 02/07/2018 with findings consistent with severe ulcerative colitis and innume rable inflammatory pseudopolyps. With the initiation of high dose steroids, he has had complete reso lution of his hematochezia, but continues to have mild abdominal pain, more related to constipation r ecently that was amenable to administration of magnesium citrate. At this time, his ulcerative colit is flare seems to be adequately controlled with oral steroids and oral mesalamine. RECOMMENDATIONS: 1. We would continue to trend H&H and transfuse as necessary to maintain an H&H of 7/21. 2. Continue to monitor clinically for signs of active gastrointestinal bleeding. 3. We would continue mesalamine 2.4 grams daily along with prednisone 60 mg daily. I would continue the steroid regimen until seen in the outpatient GI clinic with plan to taper steroids at that time in lieu of placement on immunomodulator and biologic therapy. 4. Would consider a bowel regimen while here as an inpatient of MiraLax 1 capful daily if needed for constipation. From a GI standpoint, the patient can be discharged to follow up in the GI clinic. Please call with any additional questions.
[2018-02-11] MEDS: Insulin Glargine 5 UNITS in Pre-Filled Syringe 1 EACH SC SCH (22:10)
--- NOTE | 2018-02-11 23:22 | CON ---
DATE OF CONSULTATION: 02/11/2018 I am seeing Mr. Cesar at our [facility] telemetry floor as an electrophysiology [employer] consultant . REFERRING PHYSICIAN: Dr. Kohli. His problems are: 1. Paroxysmal atrial fibrillation with rapid ventricular rates with difficult rate control. 2. Acute anemia due to GI bleed related to severe ulcerative colitis and inflammatory pseudopolyps f ollowed by GI. 3. Structurally normal heart by echo LVEF 55% to 60%, mild MR, mild TR. 4. CHADS-VASc score of 1. 5. Chewing tobacco abuse. ALLERGIES: None. MEDICATIONS AT HOME: Included iron, magnesium oxide, cholecalciferol, atenolol and potassium chlorid e. SUBJECTIVE: Mr. Cesar was admitted on the due to gastrointestinal bleed. He required multiple transfusion with initial hemoglobin of 6. GI evaluated him and eventually colonoscopy revealed a li bear inflammatory pseudopolyps/ulcerative colitis causing his significant GI bleed. Sepsis was also suspected while monitoring, he developed atrial fibrillation and Dr. Kohli attempted rate control with the various heart rate controlling agents including IV diltiazem, metoprolol. This morning tho ugh he converted back to sinus rhythm. He has no dizziness, loss of consciousness at this time, feel ing better. No fever, chills, cough, no PND or orthopnea. No stroke-like symptoms, no neurological deficits. Bleeding stopped. REVIEW OF SYSTEMS: Rest of 12-point system is otherwise unremarkable. PAST MEDICAL HISTORY: As above. He has no prior documentation of atrial fibrillation, although he h ad significant palpitation a number of years already. He never had strokes, no other cardiac issues are documented in the past. SOCIAL HISTORY: Patient drinks less than 5 drinks a day. The patient smokes on a daily basis. FAMILY HISTORY: Noncontributory to current presentation. OBJECTIVE DATA: VITAL SIGNS: Blood pressure this morning is 140/73, heart rate 107, respirations 20, temperature 98. 8 degrees Fahrenheit. GENERAL: He is alert and oriented man in no apparent distress. NECK: Supple. Jugular veins not distended. CHEST: Coarse without crackles. CARDIOVASCULAR: Heart sounds are regular to rate and rhythm. No murmur or gallop. ABDOMEN: Benign. Bowel sounds positive. EXTREMITIES: Lower extremities without edema, clubbing or cyanosis. Pulses are adequate. NEUROLOGIC: Patient nonfocal. MUSCULOSKELETAL: No joint swelling or deformities. SKIN: Without rash. DATABASE: The EKGs reviewed revealing initially sinus rhythm, sinus tachycardia later developing atr ial fibrillation with rapid rates. Occasional aberrant conduction was also noted. This morning, the rhythm is sinus rhythm. LABORATORY DATA: White cell count 32.8, hemoglobin 8.8, platelet count is 479. Sodium 133, potassiu m 3.6, BUN is 10, creatinine 0.67. ASSESSMENT AND PLAN: Mr. Cesar is a pleasant 37-year-old man with possible colitis and related gas trointestinal bleed. He also developed atrial fibrillation while acutely sick, but now the episode s eems to be better controlled and he has returned to sinus rhythm. He had very difficult rate control during his current present hospitalization. I discussed with treatment issues with him. Naturally, he cannot be anticoagulated at this time due to severe GI bleeding. Luckily, his MARY score is only 1 and his stroke risk is relatively lower. O n the hand, atrial fibrillation with rapid rates could cause further issues with his recovery and sym ptomatic as well. It would be reasonable to consider suppression. I am recommending Multaq providin g GI liver side effects do not prevent administration of his drug. I encouraged him to quit drinking . So far, his LFTs are in normal range. We will follow up him in the future. Recurrent atrial fibrillation episodes are seen and he can be a nticoagulated. He could be a reasonable candidate for pulmonary venous isolation procedure, but not without the ability to anticoagulate him. Long-term though if no intervention is planned, he will be likely okay to continue on aspirin only, n ot on NOAC or warfarin; hence the history of GI bleed and potential for recurrence in the future and his CHADS VASC score only 1. I will follow with you.
[2018-02-12 05:30] LABS: Anion Gap 10 mmol/L (10-20); BUN (Urea Nitrogen) 12 mg/dL (8.9-20.6); Calc. Creatinine Clearance 251 mL/min (70-130); Calcium 7.9 mg/dL (7.8-10.44); Carbon Dioxide 30 mmol/L (22-29); Chloride 100 mmol/L (98-107); Estimated GFR-MDRD Greater than 90; Glucose 148 mg/dL (70-105); Potassium 3.5 mmol/L (3.5-5.1); Sodium 136 mmol/L (136-145)
[2018-02-12 05:36] LABS: #Eosinphils 0.1 thou/uL (0.0-0.7); #Lymphocytes 1.2 thou/uL (1.20-3.40); #Monocytes 2.1 thou/uL (0.11-0.59); #Neutrophils 19.1 thou/uL (1.40-6.50); %Basophils 0.1 % (0.0-1.0); %Eosinophils 0.5 % (0.0-10.0); %Lymphocytes 5.2 % (21.0-51.0); %Monocytes 9.2 % (0.0-10.0); Hemoglobin 7.6 g/dL (14.0-18.0); Mean Corpuscular HGB CONC 31.5 g/dL (32.0-36.0); Mean Corpuscular Hemoglobin 29.3 pg (27.0-31.0); Mean Corpuscular Volume 92.9 fL (78.0-98.0); Mean Platelet Volume 8.2 fL (7.4-10.4); Platelet Count 358 thou/uL (130-400); RBC Distribution Width 15.3 % (11.5-14.5); Red Blood Cell (RBC) Count 2.58 mill/uL (4.70-6.10); White Blood Cell (WBC) Count 22.5 thou/uL (4.8-10.8)
[2018-02-12] MEDS ORDERED: Dronedarone HCl 400 MG TAB PO SCH (08:00)
[2018-02-12] MEDS: Mesalamine DR 400 mg Capsule PO SCH ×3 (08:20→20:41)
[2018-02-12] MEDS: Metoprolol Tartrate 50 MG TAB PO SCH ×2 (08:21→20:41)
[2018-02-12] MEDS: Dronedarone HCl 400 MG TAB PO SCH ×2 (08:21→16:48)
[2018-02-12] MEDS: Calcium Carbonate + Vit D 1 TAB PO SCH ×2 (08:21→16:48)
[2018-02-12] MEDS: predniSONE 20 MG TAB PO SCH (08:21)
[2018-02-12] MEDS: Famotidine 20 MG TAB PO SCH ×2 (08:21→20:41)
[2018-02-12] MEDS: Insulin Glargine 10 UNITS in Pre-Filled Syringe 1 EACH SC SCH (08:22)
[2018-02-12] MEDS: HumaLOG 300 UNITS/3 ML VIAL SC SCH ×3 (08:23→18:31)
[2018-02-12] MEDS ORDERED: Potassium Chloride 20 MEQ TAB PO SCH (09:15)
--- NOTE | 2018-02-12 12:06 | PRG ---
DATE OF SERVICE: 02/12/2018 SERVICE: Pulmonary Medicine INTERVAL HISTORY: The patient is doing really well from a respiratory standpoint. He is breathing c omfortably. There has been no interval change to his condition. He denies any current chest pain, f gita, chills, nausea or vomiting. He is not having any abdominal discomfort. He had a bowel moveme nt yesterday, but nothing since. He has not passed any blood per rectum. Otherwise, he is really pl eased with the progress that he is making. PHYSICAL EXAMINATION: VITAL SIGNS: Afebrile, pulse 113, blood pressure 104/72, respirations 16, saturation 100% on room ai r. GENERAL: The patient is awake, alert, in no apparent distress. LUNGS: Excellent air entry. Minimal dependent crackles are present. No prolonged expiratory phase or wheezing. HEART: Normal rate, regular. ABDOMEN: Soft, nontender, nondistended. Bowel sounds are positive. MUSCULOSKELETAL: No cyanosis or clubbing. There is no pitting in the bilateral lower extremities. NEUROLOGIC: Grossly nonfocal. LABORATORY DATA: Basic metabolic profile is completely unremarkable except for bicarbonate that is r oughly stable at 30. WBC is beautifully down trending at 22.5, hemoglobin 7.6 and stable, platelets 358,000 and down trending. ASSESSMENT: 1. Ulcerative colitis flare, resolved. 2. Acute blood loss anemia, status post 7 units of blood transfusion, stable. 3. Atrial fibrillation/flutter with rapid ventricular response. 4. Obstructive sleep apnea, suspected. 5. Elevated white blood cell count, likely secondary to leukemoid reaction. DISCUSSION AND PLAN: The patient is actually doing fantastic. At this point, he is feeling better. His white blood cell count is trending down. I will have him follow up with me in the outpatient tting, so that we can arrange for polysomnogram. At this point, he has no further requirements for i npatient Pulmonary or Critical Care opinion, and I will sign off. Call with additional questions or concerns please.
--- NOTE | 2018-02-12 12:57 | PRG ---
DATE OF SERVICE: 02/12/2018 ELECTROPHYSIOLOGY FOLLOWUP NOTE SUBJECTIVE: Mr. Cesar seems to be doing better. He has no further bleeding issues. No chest pain s, no shortness of breath and denies palpitations. OBJECTIVE: VITAL SIGNS: Blood pressure is 104/72, heart rate is 113, respirations 16. The patient is afebrile. GENERAL: Alert and oriented man in no apparent distress. NECK: Supple. Jugular veins not distended. CHEST: Coarse without crackles. CARDIOVASCULAR: Heart sounds are regular to rate and rhythm. No murmur or gallop. ABDOMEN: Benign. Bowel is positive. No murmur or gallop. EXTREMITIES: Lower extremities without edema, clubbing or cyanosis. LABORATORY DATA: White count 22.5, hemoglobin 7.6, platelet count 358. Electrolytes normal range. BUN 12, creatinine 0.6. ASSESSMENT AND PLAN: Mr. Cesar is a 37-year-old man with a newly found atrial fibrillation in the setting of severe anemia due to ulcerative colitis related colon bleeds also possible sepsis. 1. The atrial fibrillation was difficult to rate control. Eventually self-terminated and the patien t back to sinus rhythm most of the time yesterday. Multaq was started once patient spontaneously ret urned to sinus rhythm for maintenance of rhythm and also rate control. Since then, he is mostly main taining sinus rhythm and feeling better. 2. CHADS-VASc score of 1 with , at this point anticoagulation not an option. Continue as per GI Service. Stroke risk is relatively low even if atrial fibrillation recurs. 3. prison plans of pulmonary vein isolation could be made only once the patient could tolerate or al anticoagulation. At this point a routine follow up is requested.
[2018-02-12 14:45] VITALS: BMI 29.8
--- NOTE | 2018-02-12 14:50 | PDOC.PN ---
- Subjective Encounter Start Date: 02/12/18 Encounter Start Time: 10:00 -: old records requested/rev Pt seen and examined, chart reviewed in its entirety, this is my first visit with this patient Follow up for Ulcerative colitis, acute blood loss anemia, paroxysmal afib No F/C, no N/V/D/C, no CP or SOB, no cough or sputum production All systems reviewed and neg except as stated above - Objective Resuscitation Status: Resuscitation Status FULL:Full Resuscitation MAR Reviewed: Yes Vital Signs & Weight: Vital Signs (12 hours) Temp Pulse Resp BP Pulse Ox 02/12/18 12:00 99.4 F 91 13 119/73 97 02/12/18 08:00 100 02/12/18 07:26 98.5 F 113 H 16 104/72 100 02/12/18 04:00 98.7 F 84 16 135/83 98 Weight Admit Weight 232 lb 3 oz Weight 213 lb 12.8 oz Most Recent Monitor Data Heart Rate from ECG 97 NIBP 133/95 Respiration from ECG 14 I&O: 02/11/18 02/12/18 02/13/18 06:59 06:59 06:59 Intake Total 2009 1070 Output Total 900 Balance 1110 1070 Result Diagrams: 02/12/18 04:55 02/12/18 04:55 Additional Labs: Accuchecks 02/12/18 02/12/18 02/11/18 10:47 05:51 20:47 POC Glucose 139 H 138 H 176 H 02/11/18 16:53 POC Glucose 237 H Radiology Reviewed by me: Yes EKG Reviewed by me: Yes Dx/Plan (1) Acute kidney failure Status: Acute (2) Anemia due to acute blood loss Code(s): D62 - ACUTE POSTHEMORRHAGIC ANEMIA Status: Acute (3) Atrial fibrillation with RVR Code(s): I48.91 - UNSPECIFIED ATRIAL FIBRILLATION Status: Acute (4) Exacerbation of ulcerative colitis Code(s): K51.90 - ULCERATIVE COLITIS, UNSPECIFIED, WITHOUT COMPLICATIONS Status: Acute (5) Obesity (BMI 30.0-34.9) Code(s): E66.9 - OBESITY, UNSPECIFIED Status: Chronic (6) Tobacco chew use Code(s): Z72.0 - TOBACCO USE Status: Chronic - Plan * .
--- NOTE | 2018-02-12 15:53 | PDOC.CTH ---
Cardiology Progress Note - Subjective Doing well this am. continues to be in SR - Objective Vital Signs Temp Pulse Resp BP Pulse Ox 02/12/18 15:31 99.3 F 98 15 120/69 97 02/12/18 12:00 99.4 F 91 13 119/73 97 02/12/18 08:00 100 02/12/18 07:26 98.5 F 113 H 16 104/72 100 02/12/18 04:00 98.7 F 84 16 135/83 98 Admit Weight 232 lb 3 oz Weight 213 lb 12.8 oz 02/11/18 02/12/18 02/13/18 06:59 06:59 06:59 Intake Total 2009 1070 Output Total 900 Balance 1110 1070 - Physical Examination General/Neuro: alert & oriented x3, NAD Neck: carotid US brisk, no JVD present Lungs: CTA, unlabored respirations Heart: RRR Abdomen: NT/ND, soft Extremities: + femoral B - Labs Result Diagrams: 02/12/18 04:55 02/12/18 04:55 - Assessment/Plan afib UC GI bleed CV status stable On multaq avoid ACT If rhythm stable overnight, recommend dc from a cv standpoint with close outpt fu
[2018-02-12] MEDS: Insulin Glargine 5 UNITS in Pre-Filled Syringe 1 EACH SC SCH (20:40)
[2018-02-13 05:34] LABS: Band 6 % (5-11); Hemoglobin 7.7 g/dL (14.0-18.0); Lymphocytes 2 % (21-51); MDiff Complete? YES; Mean Corpuscular HGB CONC 30.9 g/dL (32.0-36.0); Mean Corpuscular Hemoglobin 28.4 pg (27.0-31.0); Mean Corpuscular Volume 91.6 fL (78.0-98.0); Mean Platelet Volume 7.8 fL (7.4-10.4); Monocytes 3 % (0-10); Neutrophil 89 % (42-75); PLT Morphology Comment Appears Adequate; Platelet Count 397 thou/uL (130-400); RBC Distribution Width 15.9 % (11.5-14.5); Red Blood Cell (RBC) Count 2.71 mill/uL (4.70-6.10); White Blood Cell (WBC) Count 20.9 thou/uL (4.8-10.8)
--- NOTE | 2018-02-13 08:36 | PRG ---
DATE OF SERVICE: 02/13/2018 Mr. Cesar is doing well. He continues in sinus rhythm. No current complaints. PHYSICAL EXAMINATION: VITAL SIGNS: Blood pressure 145/83, pulse 87, temperature 96. LUNGS: Clear to auscultation. CARDIAC: Regular rate and rhythm. ABDOMEN: Soft, nontender, nondistended. EXTREMITIES: No edema. IMPRESSION: 1. Gastrointestinal bleed. 2. Atrial fibrillation. RECOMMENDATIONS: Mr. Cesar continues in sinus rhythm. We will continue Multaq in addition to meto prolol 75 b.i.d. No anticoagulation therapy given ____ and recent GI bleed. From my standpoint, wou ld be okay to go home. Dr. Murphy will be lead python developer this weekend. Please call if questions arise. Othe rwise, I have no further recommendations. I will follow up with Mr. Cesar as an outpatient.
[2018-02-13] MEDS: Insulin Glargine 10 UNITS in Pre-Filled Syringe 1 EACH SC SCH (10:25)
[2018-02-13] MEDS: Dronedarone HCl 400 MG TAB PO SCH (10:26)
[2018-02-13] MEDS: Famotidine 20 MG TAB PO SCH (10:26)
[2018-02-13] MEDS: Mesalamine DR 400 mg Capsule PO SCH (10:26)
[2018-02-13] MEDS: Calcium Carbonate + Vit D 1 TAB PO SCH (10:26)
[2018-02-13] MEDS: predniSONE 20 MG TAB PO SCH (10:26)
[2018-02-13] MEDS: Metoprolol Tartrate 50 MG TAB PO SCH (10:27)
[2018-02-13] MEDS: HumaLOG 300 UNITS/3 ML VIAL SC SCH ×2 (10:27→11:55)
[2018-02-13 12:32] VITALS: BP 137/77; TEMP 99.9
--- NOTE | 2018-02-14 08:30 | EKG ---
Test Reason : Blood Pressure : / mmHG Vent. Rate : 086 BPM Atrial Rate : 086 BPM P-R Int : 150 ms QRS Dur : 094 ms QT Int : 392 ms P-R-T Axes : 010 002 003 degrees QTc Int : 469 ms Normal sinus rhythm Normal ECG When compared with ECG of 06-FEB-2018 03:55, (Unconfirmed) Previous ECG has undetermined rhythm, needs review Confirmed by AMBER YUEN ([id number]) on 02/14/2018 8:29:57 AM Referred By: [facility] Confirmed By:AMBER YUEN
== END 2018-02-13 14:20 | disposition home or self-care (01) | DRG 386 ==
LOC: ERS 17:42 → IMCU/EMU 21:47 → 2NO 02-10 18:13
PROVIDERS: ADMIT Internal Medicine; ATTEND Internal Medicine
PROC: 30233N1 Transfusion of Nonautologous Red Blood Cells into Peripheral Vein, Percutaneous Approach (ICD-10-PCS; 2018-02-03)
PROC: 0DBK8ZX Excision of Ascending Colon, Via Natural or Artificial Opening Endoscopic, Diagnostic (ICD-10-PCS; principal; 2018-02-07)
PROC: 0DBL8ZX Excision of Transverse Colon, Via Natural or Artificial Opening Endoscopic, Diagnostic (ICD-10-PCS; 2018-02-07)
PROC: 0DBM8ZX Excision of Descending Colon, Via Natural or Artificial Opening Endoscopic, Diagnostic (ICD-10-PCS; 2018-02-07)
PROC: 0DBQ8ZX Excision of Anus, Via Natural or Artificial Opening Endoscopic, Diagnostic (ICD-10-PCS; 2018-02-07)
DX: K51.40 Inflammatory polyps of colon without complications (principal); D62 Acute posthemorrhagic anemia; E87.1 Hypo-osmolality and hyponatremia; N17.9 Acute kidney failure, unspecified; K92.1 Melena; K51.90 Ulcerative colitis, unspecified, without complications; D50.9 Iron deficiency anemia, unspecified; F17.210 Nicotine dependence, cigarettes, uncomplicated; R73.9 Hyperglycemia, unspecified; E86.1 Hypovolemia; K64.4 Residual hemorrhoidal skin tags; K64.8 Other hemorrhoids; E66.9 Obesity, unspecified; Z68.29 Body mass index [BMI] 29.0-29.9, adult; E83.51 Hypocalcemia; I48.0 Paroxysmal atrial fibrillation; K21.9 Gastro-esophageal reflux disease without esophagitis; G47.33 Obstructive sleep apnea (adult) (pediatric); E87.6 Hypokalemia
CPT/HCPCS: 36415; 36416; 36430; 74018; 80048; 80053; 83630; 83735; 84100; 84443; 85014; 85018; 85025; 86480; 86704; 86706; 86803; 86850; 86900; 86901; 87015; 87045; 87046; 87206; 87324; 87328; 87329; 87340; 87449; 87536; 87899; 88305; 93005; 93010; 93306; J1160; J1940; J2001; J2405; J2704; J2920; J7050; J7506; P9016

== ENCOUNTER 2020-01-08 17:33 | Inpatient (IN) | payer MEDICARE, OTHER ==
[~2020-01-08 17:33] MED LIST: Iopamidol-370 76% 500 ML 1 ML ONE
[2020-01-08] MEDS ORDERED: Norepinephrine 8 MG/0.9% NS 250 ML ONE (17:39)
[2020-01-08] MEDS ORDERED: Vancomycin 1 GM/200 ML BAG ONE (17:59)
[2020-01-08] MEDS ORDERED: Cefepime 2 GM VIAL ONE (17:59)
[2020-01-08 18:21] LABS: Hemoglobin 9.9 g/dL (14.0-18.0); Mean Corpuscular HGB CONC 31.3 g/dL (32.0-36.0); Mean Corpuscular Hemoglobin 32.6 pg (27.0-31.0); Mean Platelet Volume 8.5 fL (7.4-10.4); Platelet Count 241 thou/uL (130-400); RBC Distribution Width 20.5 % (11.5-14.5); Red Blood Cell (RBC) Count 3.05 mill/uL (4.70-6.10); White Blood Cell (WBC) Count 22.7 thou/uL (4.8-10.8)
--- NOTE | 2020-01-08 18:26 | RAD ---
Exam: Chest one view HISTORY:Dyspnea. GI bleed and sepsis. Comparison: 02/01/2016 FINDINGS: Cardiac silhouette: Normal Aorta: Unremarkable Pulmonary vessels: Normal Costophrenic angles: Clear LUNGS: Diminished lung volumes. Interstitial prominence may represent bronchovascular crowding. Super imposed infiltrate cannot be excluded. Pneumothorax: None Osseous abnormalities: None IMPRESSION: 1. Hypoventilation due to poor inspiratory effort and accentuation of the pulmonary bronchovascular m arkings. Superimposed infiltrate cannot be excluded.
[2020-01-08 18:27] LABS: INR-International Normal Ratio 1.8
[2020-01-08 18:29] LABS: D-Dimer Test 3.85 *mcg/mL (0.27-0.43)
[2020-01-08] MEDS ORDERED: Dexamethasone 10 MG/ML VIAL ONE (18:32)
[2020-01-08 18:41] LABS: Acetaminophen Less than 6.0 mcg/mL (10.0-30.0); Alcohol Less than 10 mg/dL (Less than 10); Salicylate Less than 8.0 mg/dL (15.0-30.0)
[2020-01-08 18:42] LABS: ALT (SGPT) 33 U/L (8-55); AST (SGOT) 71 U/L (5-34); Albumin 1.8 g/dL (3.5-5.0); Alkaline Phosphatase 181 U/L (40-110); Anion Gap 19 mmol/L (10-20); BUN (Urea Nitrogen) 16 mg/dL (8.9-20.6); Bilirubin, Total 1.1 mg/dL (0.2-1.2); Calc. Creatinine Clearance 0 mL/min (70-130); Calcium 6.4 mg/dL (7.8-10.44); Carbon Dioxide 10 mmol/L (22-29); Chloride 109 mmol/L (98-107); Estimated GFR-MDRD 68; Globulin 2.4 g/dL (2.4-3.5); Lipase 21 U/L (8-78); Potassium 3.4 mmol/L (3.5-5.1); Protein, Total 4.2 g/dL (6.0-8.3); Sodium 135 mmol/L (136-145)
[2020-01-08 18:44] LABS: Anisocytosis SLIGHT = 6-15 cells (100X) (0-5/hpf); Band 62 % (5-11); Burr Cells SLIGHT = 2-5 cells (100X) (0-1/hpf); Glucose 34 mg/dL (70-105); Hypochromia SLIGHT = 6-15 cells (100X) (0-5/hpf); Lymphocytes 1 % (21-51); MDiff Complete? YES; Macrocytosis SLIGHT = 6-15 cells (100X) (0-5/hpf); Metamyelocyte 1 % (0-0); Monocytes 2 % (0-10); Myelocyte 2 % (0-0); Platelet Morphology Comment Appears Adequate; Polychromasia MODERATE = 3-4 cells (100X) (0-2/hpf); Reflex for Review?? YES; Schistocytes SLIGHT = 2-5 cells (100X) (0-1/hpf); Target Cells SLIGHT = 2-5 cells (100X) (0-1/hpf)
[2020-01-08] MEDS ORDERED: Dextrose 50% Abboject 50 ML SYRINGE ONE ×2 (18:47→19:47)
--- NOTE | 2020-01-08 19:02 | CT ---
EXAM: CT ABDOMEN AND PELVIS HISTORY: Abdominal pain. Sepsis COMPARISON: 01/08/2020 at 4:[address] [facility] Procedure: Multiple contiguous axial images were obtained and a CT of the abdomen and pelvis with IV contrast. C oronal reformats were performed. FINDINGS: Lower Chest: Small effusion Vessels: Normal caliber Heart: No significant pericardial fluid Abdomen: Portal vein:Patent Gallbladder: No calcified gallstones. Normal caliber wall. Liver: Hepatic steatosis and fatty sparing Pancreas: within normal limits. Spleen: within normal limits. Adrenals: within normal limits. Kidneys: Symmetric enhancement. No obstructive uropathy. Peritoneum: Stable mild to moderate ascites Bowel: Stable fluid-filled loops of small bowel with mucosal thickening. Correlate for enteritis. Mesentery and Retroperitoneum: No enlarged mesenteric or retroperitoneal lymph nodes. Abdominal Wall: within normal limits. Pelvis: Reproductive Organs: Reproductive organs are unremarkable. Pelvis: Free fluid in the pelvis Bladder: Compressed with Hernandez catheter Bones: within normal limits. IMPRESSION: Redemonstration of multifocal fluid-filled loops of small bowel with enhancement and thickening of th e mucosa. Correlate for long segment enteritis. Enteritis may be due to infectious or inflammatory process. Transcribed Date/Time: 01/08/2020 7:25 PM
--- NOTE | 2020-01-08 19:10 | CT ---
Exam: CT angiogram of the chest HISTORY: Dyspnea. COMPARISON: Chest CT with contrast 01/08/2020 at 4:17 PM, [facility] TECHNIQUE: CT angiogram of the chest is performed in the axial plane. Three-dimensional reformatted i mages are submitted for interpretation FINDINGS: Mediastinum: Redemonstration of an enlarged right paratracheal lymph node, measuring 2.0 x 1.5 cm HEART: Normal size. No significant pericardial fluid. Aorta: No aneurysm or dissection Upper solid abdominal viscera: Refer to separate abdomen CT report Trachea and central bronchi: Patent Pleural spaces: No effusion Lung parenchyma: Stable patchy groundglass opacities. No consolidation. Persistent diminished lung vo lumes. Additional scattered linear opacities noted in both lower lobes which may represent scar or atelectasis. Pneumothorax: None Osseous structures: No lytic or blastic lesions Pulmonary arteries: Adequate contrast opacification pulmonary arterial system to the level of segment al arteries. No filling defect to suggest pulmonary embolism IMPRESSION: 1. No evidence of pulmonary artery embolism to the level segmental arteries 2. Diminished lung volumes, likely due to a poor inspiratory effort. Nonspecific scattered groundglas s opacities may represent edema or pneumonia. Results of the CT angiogram the chest abdomen and pelvic discussed with Dr. Meredith 01/08/2020 at 6:57 PM Code CR Transcribed Date/Time: 01/08/2020 7:24 PM
[2020-01-08 19:27] LABS: SARS-CoV-2 NAA Rapid Test Not Detected (NotDetected)
[2020-01-08 19:41] LABS: Bilirubin Small (Negative); Blood, Urine Large (Negative); Glucose, Urine (Dipstick) Negative (Negative); Ketone, Urine Negative (Negative); Leukocyte Negative (Negative); Nitrite Positive (Negative); Protein, Urine (Dipstick) > or equal to 300 mg/dL (Neg-Trace); Specific Gravity, Urine 1.015 (1.005-1.030); Urobilinogen 0.2 mg/dL (Less than 2)
[2020-01-08 19:43] LABS: Clarity Hazy (Clear)
[2020-01-08 19:46] LABS: Bacteria/HPF 2+ HPF (None Seen); RBC/HPF Greater than 50 HPF (0-3); Squamous Epithelial 0-3 HPF (0-3)
[2020-01-08 20:01] LABS: Amphetamine Not Detected (NotDetected); Barbiturates Screen Not Detected (NotDetected); Benzodiazepine Screen Not Detected (NotDetected); Cocaine Metabolite Screen Not Detected (NotDetected); Medtox Control Line Valid? VALID (VALID); Medtox Reader # READER 4; Methadone Not Detected (NotDetected); Methamphetamine Not Detected (NotDetected); Opiate Screen Not Detected (NotDetected); Oxycodone Screen Not Detected (NotDetected); Phencyclidine (PCP) Not Detected (NotDetected); THC/Cannabinoid Screen Not Detected (NotDetected); Tricyclic Screen Not Detected (NotDetected)
[2020-01-08 20:31] LABS: Actual Bicarbonate (HCO3a) 10.1 mEq/L (22-28); Analyzer IN Cardio ER; Base Excess (BEa) -16.8 mEq/L (-2.0 to +3.0); CO2 Tension 27.5 mmHg (35.0-45.0); Calcium, Ionized (arterial) 0.99 mmol/L (1.12-1.30); Carboxyhemoglobin (COHb) 0.1 gm% (0.0-3.0); Hemoglobin (Hb) 10.6 g/dL (14.0-18.0); O2 Tension (PaO2), arterial 83.6 mmHg (80.0-100.0)
[2020-01-08 20:35] LABS: pH, Arterial 7.18 (7.35-7.45)
[2020-01-08] MEDS ORDERED: Dextrose 5% in Water 1,000 ML IV PRN (20:49)
[2020-01-08] MEDS ORDERED: Dextrose 50% Abboject 50 ML SYRINGE SLOW IVP PRN (20:49)
[2020-01-08] MEDS ORDERED: Heparin 5,000 UNITS/ML VIAL SC SCH (21:00)
[2020-01-08 21:28] LABS: Glucose 121 mg/dL (70-105)
[2020-01-08] MEDS: Sodium Bicarbonate 140 MEQ in Dextrose 5% in Water 1,000 ML IV SCH (21:30)
[2020-01-08 21:39] LABS: Lactic Acid 9.1 mmol/L (0.5-2.2)
[2020-01-08] MEDS: Norepinephrine 8 MG/0.9% NS 250 ML IVPB SCH (22:00)
--- NOTE | 2020-01-08 22:07 | HP ---
REASON FOR ADMISSION: Severe diarrhea. HISTORY OF PRESENT ILLNESS: This is a 39-year-old male patient who is known to have ulcerative colitis. He was transferred from [place]. The patient as per his mom to whom I spoke over the phone stating that his diarrhea has been uncontrollable. He cannot even make it to the toilet in time. Also, she noticed that for the past month, he had swelling of his bilateral lower extremities. Today, he reported that he is very weak. She offered to drive him to the ER at [place], but he was not able to stand up and for that reason, she called EMS. When he arrived to the [place] ER, he appeared to be short of breath and had a blood pressure of 40/30, very tachycardic. His blood work did reveal an elevated white count and a lactic acid of 9. He had a negative CT of the head and a CT of the abdomen and pelvis that showed [id number] ascites. The patient was started on pressors, initially vasopressin, then required to be on Levophed. He did receive 1 amp of bicarb. He was found to be hypoglycemic, so he was given 2 amps of D50. He arrived to the emergency room at [place]. He is more awake, but not very talkative. He appears pale and tired. He tells me that he has blood in his stools, but often on his mother did tell me that he had a lot of blood in his stools. He tells me that he is often on steroids and last time he took steroids was a couple of weeks ago. He denies abdominal pain. He says that he is not vomiting much. He is able to drink water. I did review his records. His last admission to our hospital was in 2019 for ulcerative colitis exacerbation and acute blood loss anemia with paroxysmal atrial fibrillation. His hemoglobin at that time was 6.3. He did receive a unit of blood. He was started on IV steroids. As per his mother, the patient got admitted to [place] multiple times and the last admission was for anemia, he did receive blood transfusion and one admission was for dehydration. PAST MEDICAL HISTORY: 1. Paroxysmal atrial fibrillation. 2. Iron-deficiency anemia. 3. Diabetes. 4. High blood pressure. SOCIAL HISTORY: He drinks daily. He does not abuse illegal substance. FAMILY HISTORY: Reviewed, found to be negative for premature coronary artery disease. REVIEW OF SYSTEMS: All systems reviewed except the above mentioned, found to be negative. ALLERGIES: NO NOTE OF ANY DRUG ALLERGY. PHYSICAL EXAMINATION: GENERAL: He is awake, alert, oriented, appears tired, appears pale. Lower extremity appears mottled. VITAL SIGNS: His blood pressure is 107/69, heart rate of 123, respiratory rate 27, temperature is 97.5, previously 102 at [place], and saturating 94% on 2 L nasal cannula. HEENT: Head is nontraumatic and normocephalic. Pupils equal and reactive. Extraocular movements are intact. Nonicteric sclera. Moderately injected conjunctivae. Oral mucosa normal. Nasal mucosa normal. NECK: Supple. No adenopathy. No murmur. Thyroid is not palpable. Trachea is midline. No supraclavicular lymphadenopathy. HEART: S1 and S2, regular. No murmurs. No gallops. No friction rubs. No displacement of PMI. LUNGS: Clear to auscultation bilaterally. No wheezes or rhonchi. No crackles. ABDOMEN: Distended, but nontender and feels very soft. He does have 2+ pitting edema of the bilateral lower extremities. NEUROLOGIC: He is moving all four extremities. Cranial nerves appear to be intact. LABORATORY DATA: Blood work shows a WBC of 22.7, hemoglobin of 9.9, platelets of 241, bands of 62%. INR 1.8, PTT 31.0. Sodium of 135, potassium 3.4, bicarb of 10, and creatinine 0.61. Urinalysis; positive for 4 to 6 wbc's, positive for nitrites. CT of the chest and abdomen shows no PE, diminished lung volumes due to a poor inspiratory effort, nonspecific scattered ground-glass opacities, may represent edema or pneumonia. CT of the abdomen shows redemonstration of multifocal fluid-filled loops of the small bowel with enhancement and thickening of the mucosa correlate for long segment enteritis. Enteritis may be due to infectious or inflammatory process. Chest x-ray shows hypoventilation due to poor inspiratory effort. EKG shows sinus tachycardia, nonspecific T-wave changes per my read. ASSESSMENT AND PLAN: This is a 39-year-old male patient, who is presenting with hypotension in the setting of severe diarrhea secondary to exacerbation of his ulcerative colitis, also a septic picture could be due to colitis versus pneumonia. GI. The patient most likely has exacerbation of his ulcerative colitis. He will be started on IV Solu-Cortef. This will also help with his blood pressure support. Endocrinology. He is diabetic and he has been hypoglycemic. We will continue to monitor his glycemia. He is started on a D5W with bicarb drip. His metformin will be stopped. ID. The patient appears possibly septic secondary to colitis versus respiratory tract infection. As a source, he is on Humira. Humira will be stopped. He is currently on cefepime. Cardiac. The patient is hypotensive, requiring to be on Levophed and vasopressin. Continue with those. He will be admitted to the intensive care unit. Renal system, electrolyte. The patient is severely acidotic with normal anion gap. This could be due to large amount of GI loss. He will be on a bicarb drip. The patient does have swelling of his bilateral lower extremities. This could be due to his low albumin level. We will check a Doppler of lower extremity to rule out deep venous thrombosis. Also do an echocardiogram. I did discuss the plan of care with his mother, she is in agreement. One hour of critical care time was spent to manage the patient of his care. Job ID: [id number]
[2020-01-08] MEDS: Vasopressin 20 UNIT, Admixture Fee 1 EACH in Sodium Chloride 0.9% 50 ML IV SCH (22:08)
[2020-01-08] MEDS: Albumin 25% 25 GM/100 ML BOT IVPB SCH (22:10)
[2020-01-08 22:29] LABS: Troponin I 0.015 ng/mL (< 0.028)
[2020-01-08] MEDS ORDERED: Phentolamine Mesylate 5 MG VIAL SC SCH (22:30)
--- NOTE | 2020-01-08 22:30 | CON ---
DATE OF CONSULTATION: 01/08/2020 CONSULTING PHYSICIAN: Tiffany avila. REASON FOR CONSULTATION: Septic shock. HISTORY OF PRESENT ILLNESS: The patient is a 39-year-old male from [place]. He was transferred here with severe hypotension. His main complaint was shortness of breath. He has had diarrhea for a week. He does have a history of ulcerative colitis and has had frequent flares in the past. In fact, he is disabled because of the ulcerative colitis. He was noted to be febrile over in [place]. He was fluid resuscitated and started on Levophed and vasopressin. He has a central line in the left groin. He has received 4 L of fluid. He has also received some dexamethasone. PAST MEDICAL HISTORY: 1. Ulcerative colitis. 2. Iron deficiency anemia. 3. Gastroesophageal reflux. PAST SURGICAL HISTORY: None. SOCIAL HISTORY: Apparently, uses smokeless tobacco. Drinks less than 5 beers a day. Is not using illicit drugs. ALLERGIES: NONE. MEDICATIONS: Prior to admission: 1. Atenolol 25 mg daily. 2. daily. 3. K-Dur 20 mEq daily. 4. Magnesium 100 mg daily. REVIEW OF SYSTEMS: Mainly remarkable for shortness of breath and abdominal pain. PHYSICAL EXAMINATION: VITAL SIGNS: Temperature not currently updated in computer, blood pressure 116/77, pulse 131, respirations in the low 40s, O2 saturation 95% on 2 L. GENERAL: He is a disheveled appearing male who is tachypneic. HEENT: Pupils reactive. Sclerae anicteric. Oropharynx clear. NECK: No adenopathy or JVD. LUNGS: Clear to auscultation. No wheezing or rhonchi. CARDIOVASCULAR: S1 and S2. Tachycardic without audible murmur. ABDOMEN: Protuberant, not really tender to deep palpation. EXTREMITIES: No clubbing or cyanosis, but he has 1+ edema from his knees downward. LABORATORY DATA: His chest x-ray demonstrates an expiratory film with no clearly defined infiltrates. CT of the chest demonstrated no evidence of pulmonary emboli, poor inspiratory effort was noted. Abdominal CT shows evidence of enteritis. White blood count 22.7, hematocrit 31.8, and platelet count 241, with 62% bands. INR 1.8, PTT 31.0. Sodium 135, potassium 3.4, chloride 109, CO2 of 10, BUN 16, creatinine 1.2, glucose 34, lactate 9.1, alkaline phosphatase 181, albumin 1.8. COVID test negative. Urinalysis showed greater than 50 red blood cells, 4 to 6 white blood cells. ASSESSMENT: 1. Septic shock. Suspect source is probably due to flare of ulcerative colitis. 2. Metabolic acidosis. This is accounting for the patient's shortness of breath and tachypnea. RECOMMENDATION: 1. More aggressive fluid resuscitation. 2. Bicarbonate. 3. Empiric antibiotics. 4. Vasopressors as needed. 5. BiPAP as needed for additional support. Thank you for the referral. We will follow. Job ID: [id number]
[2020-01-08] MEDS: Hydrocortisone Sod Succ/PF 100 mg/2 ml Vial IVP SCH (23:01)
[2020-01-08] MEDS: Piperacillin/Tazobactam 3.375 GM in Sodium Chloride 0.9% 100 ML IVPB SCH (23:02)
[2020-01-09] MEDS: Sodium Bicarbonate 140 MEQ in Dextrose 5% in Water 1,000 ML IV SCH ×4 (01:19→20:34)
[2020-01-09 01:38] LABS: Glucose 230 mg/dL (70-105)
[2020-01-09 01:48] LABS: Troponin I 0.022 ng/mL (< 0.028)
[2020-01-09] MEDS: Albumin 25% 25 GM/100 ML BOT IVPB SCH ×4 (02:56→21:24)
[2020-01-09 03:28] LABS: Hemoglobin 8.3 g/dL (14.0-18.0); Mean Corpuscular HGB CONC 31.9 g/dL (32.0-36.0); Mean Corpuscular Hemoglobin 32.9 pg (27.0-31.0); Mean Platelet Volume 8.9 fL (7.4-10.4); Platelet Count 184 thou/uL (130-400); RBC Distribution Width 20.5 % (11.5-14.5); Red Blood Cell (RBC) Count 2.53 mill/uL (4.70-6.10); White Blood Cell (WBC) Count 27.3 thou/uL (4.8-10.8)
[2020-01-09 03:34] LABS: INR-International Normal Ratio 2.1; PTT 40.4 sec (22.9-36.1); Prothrombin Time 23.5 sec (12.0-14.7)
[2020-01-09 03:40] LABS: ALT (SGPT) 37 U/L (8-55); AST (SGOT) 73 U/L (5-34); Albumin 2.2 g/dL (3.5-5.0); Alkaline Phosphatase 139 U/L (40-110); Anion Gap 22 mmol/L (10-20); BUN (Urea Nitrogen) 17 mg/dL (8.9-20.6); Bilirubin, Total 0.9 mg/dL (0.2-1.2); Calc. Creatinine Clearance 93 mL/min (70-130); Calcium 6.2 mg/dL (7.8-10.44); Carbon Dioxide 13 mmol/L (22-29); Chloride 106 mmol/L (98-107); Estimated GFR-MDRD 60; Globulin 2.1 g/dL (2.4-3.5); Glucose 265 mg/dL (70-105); Protein, Total 4.3 g/dL (6.0-8.3); Sodium 138 mmol/L (136-145)
[2020-01-09 03:45] LABS: Potassium 2.9 mmol/L (3.5-5.1)
[2020-01-09] MEDS ORDERED: Electrolyte Replacement Protoc 1 EACH EACH FS ONE (03:52)
[2020-01-09 03:58] LABS: Band 39 % (5-11); Lymphocytes 3 % (21-51); MDiff Complete? YES; Macrocytosis SLIGHT = 6-15 cells (100X) (0-5/hpf); Metamyelocyte 2 % (0-0); Monocytes 2 % (0-10); Myelocyte 1 % (0-0)
[2020-01-09] MEDS ORDERED: Electrolyte Replacement Protocol FS PRN (04:15)
[2020-01-09] MEDS: Potassium Chloride 40 MEQ in Premix Bag 1 BAG IVPB SCH ×2 (04:34→06:12)
[2020-01-09] MEDS: Hydrocortisone Sod Succ/PF 100 mg/2 ml Vial IVP SCH ×4 (04:58→23:40)
[2020-01-09] MEDS: Piperacillin/Tazobactam 3.375 GM in Sodium Chloride 0.9% 100 ML IVPB SCH ×2 (04:58→14:37)
[2020-01-09] MEDS ORDERED: Magnesium Sulfate 4 GM in Sodium Chloride 0.9% 250 ML 250 ML IVPB SCH (05:45)
[2020-01-09] MEDS: Norepinephrine 8 MG/0.9% NS 250 ML IVPB SCH ×2 (06:46→20:24)
[2020-01-09] MEDS: Vasopressin 20 UNIT, Admixture Fee 1 EACH in Sodium Chloride 0.9% 50 ML IV SCH (06:46)
[2020-01-09] MEDS ORDERED: Dextrose 5% in Water 1,000 ML IV PRN (08:33)
[2020-01-09] MEDS ORDERED: Phytonadione 5 MG in Sodium Chloride 0.9% 50 ML IVPB SCH (08:45)
[2020-01-09] MEDS ORDERED: Pantoprazole 40 MG VIAL IVP SCH (09:00)
[2020-01-09] MEDS ORDERED: Prevnar 13-Val Conj/PF 0.5 ML SYRINGE IM ONE (09:00)
--- NOTE | 2020-01-09 09:08 | PDOC.HOSPP ---
- Subjective Encounter Date: 01/09/20 Encounter Time: 09:06 Subjective: Mr. Cesar was seen today in follow-up of septic shock and Ulcerative Colitis flare. He is currently on BiPAP. He becomes very dyspneic when an attempt is made to remove the BiPAP. He denies abdominal pain. He has continued to have diarrhea. - Objective Vital Signs & Weight: Vital Signs (12 hours) Temp Resp Pulse Ox 01/09/20 04:00 100 01/09/20 00:00 98.3 F 01/08/20 23:28 33 H 100 01/08/20 22:00 98.2 F Weight Weight 194 lb 10.691 oz Most Recent Monitor Data Heart Rate from ECG 113 NIBP 113/68 NIBP BP-Mean 79 Respiration from ECG 30 SpO2 98 I&O: 01/08/20 01/09/20 01/10/20 06:59 06:59 06:59 Intake Total 2482.9 Output Total 785 Balance 1697.9 Result Diagrams: 01/09/20 03:00 01/09/20 03:00 Additional Labs: Accuchecks 01/09/20 01/08/20 01/08/20 00:30 22:30 20:25 POC Glucose 206 H 150 H 129 H 01/08/20 19:43 POC Glucose 57 L* Hospitalist ROS - Medication Medications: Active Medications Generic Name Dose Route Start Last Admin Trade Name Freq PRN Reason Stop Dose Admin Albumin Human 25 gm 01/08/20 21:00 01/09/20 02:56 Albumin 25% IVPB 01/10/20 03:01 25 gm 0300,0900,1500,2100 ABRAM Administration Hydrocortisone Sodium Succinate 100 mg 01/08/20 23:59 01/09/20 04:58 Solu-Cortef IVP 100 mg Q6HR ABRAM Administration Vasopressin 20 unit/ 51 mls @ 0 mls/hr 01/08/20 18:00 01/09/20 06:46 Miscellaneous Medication 1 IV 51 mls each/ Sodium Chloride INF ABRAM Administration Protocol As Directed Sodium Bicarbonate 140 meq/ 1,140 mls @ 200 mls/hr 01/08/20 20:30 01/09/20 06 :46 Dextrose/Water IV 1,140 mls .[id number] ABRAM Administration Norepinephrine Bitartrate 250 mls @ 0 mls/hr 01/08/20 20:15 01/09/20 06:46 Levophed IVPB 250 mls INF ABRAM Administration Protocol Titrate Piperacillin Sod/Tazobactam 100 mls @ 200 mls/hr 01/08/20 23:59 01/09/20 04: 58 Sod 3.375 gm/ Sodium Chloride IVPB 100 mls Q6HR ABRAM Administration - Exam Eye: PERRL, anicteric sclera Heart: RRR, no murmur, no gallops, no rubs, normal peripheral pulses Respiratory: CTAB, no wheezes, no rales Gastrointestinal: soft, non-distended, distended, diminished bowl sounds Extremities: no cyanosis, 1+ LE edema (+ bilateral lower extremity non-pitting edema) Hosp A/P (1) Septic shock Code(s): A41.9 - SEPSIS, UNSPECIFIED ORGANISM; R65.21 - SEVERE SEPSIS WITH SEPTIC SHOCK Status: Acute (2) Ulcerative colitis Code(s): K51.90 - ULCERATIVE COLITIS, UNSPECIFIED, WITHOUT COMPLICATIONS Status: Chronic (3) Acute kidney injury Code(s): N17.9 - ACUTE KIDNEY FAILURE, UNSPECIFIED Status: Acute (4) Hypokalemia Code(s): E87.6 - HYPOKALEMIA Status: Acute (5) Hypomagnesemia Code(s): E83.42 - HYPOMAGNESEMIA Status: Acute - Plan * Septic shock- continue IV fluids, and pressor. He continues on Levophed drip. Vassopressin has been discontinued * Continue Zosyn and follow-up on culture results * Will also add stool studies * GI has been consulted * ? Ascites- may need abdominal ultrasound- and possible paracentesis * DAE- due to sepsis, and volume depletion- will monitor the trend * Hypokalemia- replace electrolytes as needed * Hypomagnesemia- replace
[2020-01-09] MEDS: Pantoprazole 40 MG VIAL IVP SCH ×2 (09:26→20:41)
[2020-01-09] MEDS: HumaLOG 300 UNITS/3 ML VIAL SC PRN ×3 (09:38→23:40)
--- NOTE | 2020-01-09 10:16 | ULT ---
BILATERAL LOWER EXTREMITY VENOUS DOPPLER STUDY: INDICATIONS: Lower extremity pain and edema. TECHNIQUE: The veins of both lower extremities were evaluated with ultrasound and Doppler with color Doppler wit h spectral analysis and compression. FINDINGS: The deep veins of both lower extremities were evaluated, including the common femoral vein, the popli teal vein and the greater saphenous vein, which all show normal blood flow and compression. No eviden ce of DVT. IMPRESSION: No evidence of lower extremity deep venous thrombosis. POS: AGW
[2020-01-09 10:30] LABS: Lactic Acid 9.2 mmol/L (0.5-2.2)
[2020-01-09] MEDS ORDERED: Sodium Bicarb 50 MEQ/50 ML Abboject 8.4% SYRINGE ONE (11:17)
[2020-01-09] MEDS ORDERED: Rocuronium Bromide 10 MG/ML (10ML VIAL) ONE (11:19)
[2020-01-09] MEDS ORDERED: Propofol 1,000 MG/100 ML VIAL IV ONE (11:20)
[2020-01-09] MEDS ORDERED: Ketamine 50 MG/ML (10ML VIAL) ONE (11:47)
[2020-01-09] MEDS ORDERED: Morphine 2 MG/ML VIAL SLOW IVP PRN (11:52)
[2020-01-09] MEDS ORDERED: Lorazepam 2 MG/ML VIAL SLOW IVP PRN (11:52)
[2020-01-09] MEDS ORDERED: Fentanyl BOLUS 250 ML IVPB PRN (11:52)
[2020-01-09] MEDS ORDERED: Propofol BOLUS 1,000 MG/100 ML VIAL IV PRN (11:52)
[2020-01-09] MEDS ORDERED: Ventilator Sedation Protocol 1 EACH FS SCH (12:00)
[2020-01-09] MEDS ORDERED: Succinylcholine Chloride 200 MG/10 ML VIAL IVP SCH (12:00)
[2020-01-09 12:41] LABS: HBSAB Concentration Less than 8.00 mIU/mL; HBSAg Index 0.22 S/CO (0-0.99); Hep A IgM AB Non-Reactive (NonReactive); Hep A IgM S/CO 0.19 S/CO (0-0.79); Hep B Surf AB Non-Reactive (NonReactive); Hep B Surf Ag Non-Reactive S/CO (NonReactive); Hep C IgG Ab Non-Reactive (NonReactive); Hep C Index 0.08 S/CO (0-0.79)
[2020-01-09] MEDS: Multivitamins, Adult 10 ML, Folic Acid 1 MG, Thiamine HCl 100 MG in Dextrose 5 %-0.45 %... IV SCH (12:57)
[2020-01-09 12:59] LABS: Glucose 191 mg/dL (70-105)
[2020-01-09 13:33] LABS: Actual Bicarbonate (HCO3a) 15.9 mEq/L (22-28); Base Excess (BEa) -8.5 mEq/L (-2.0 to +3.0); CO2 Tension 28.6 mmHg (35.0-45.0); Calcium, Ionized (arterial) 0.91 mmol/L (1.12-1.30); Carboxyhemoglobin (COHb) 0.2 gm% (0.0-3.0); Hemoglobin (Hb) 8.5 g/dL (14.0-18.0); Potassium - ABG Lab 2.56 mmol/L (3.70-5.30); pH, Arterial 7.36 (7.35-7.45)
[2020-01-09 13:34] LABS: Puncture Site RRA
--- NOTE | 2020-01-09 15:01 | RAD ---
PORTABLE CHEST: Indications: Intubation Comparison: 01-08-2020 FINDINGS: Poor inspiration limits the exam. ET tube is in place above the beth. NG tube passes through the EG junction and tip overlies the region of the gastric antrum. There is evidence of small effusions and there is linear atelectasis in the right lung. Vascular jean ings upper normal. Cardiomegaly. IMPRESSION: As above. POS: AGW
--- NOTE | 2020-01-09 16:07 | PRG ---
DATE OF SERVICE: 01/09/2020 35 minutes of critical care time. SUBJECTIVE: The patient was on BiPAP when I arrived this morning. He looked like he was breathing much better than yesterday. He tells me he has been having black stool for about a week along with diarrhea. OBJECTIVE: VITAL SIGNS: His temperature is 98.3, pulse 113, blood pressure 113/68, and O2 saturation 98%. 24-hour intake; 2482+, 5 L in the ER, output 785. HEENT: Unremarkable. NECK: No adenopathy or JVD. LUNGS: Clear. CARDIAC: S1 and S2. Slightly tachycardic. ABDOMEN: Distended, surprisingly not too tender. EXTREMITIES: No clubbing, cyanosis, or edema. LABORATORY DATA: Sodium 138, potassium 2.9, chloride 106, CO2 of 13, anion gap is 22, BUN 17, creatinine 1.3, and glucose 265. White blood cell count 27.3, hematocrit 26.1, and platelet count 184, with 39% bands down from 62% bands. Drug screen was negative. Culture showed no growth to date. ASSESSMENT: 1. Profound volume depletion plus/minus septic shock. 2. Ulcerative colitis with exacerbation. 3. Severe metabolic acidosis, which is better after aggressive volume resuscitation. 4. Electrolyte depletion. PLAN: 1. Replace magnesium, potassium, and recheck those levels along with phosphorus later this afternoon. 2. Continue bicarbonate drip. 3. Continue empiric antibiotics. 4. Wean vasopressors off as tolerated. 5. Try off BiPAP and see how he does. 6. Initiate GI consult. 7. Continue albumin as he was profoundly albuminemic at the time of admission. 8. Steroids. Job ID: [id number]
--- NOTE | 2020-01-09 16:34 | CON ---
DATE OF CONSULTATION: 01/09/2020 REASON FOR CONSULTATION: Severe ulcerative colitis with respiratory failure and metabolic acidosis in the ICU. CONSULTING PHYSICIAN: Matthew Urban MD HISTORY OF PRESENT ILLNESS: It comes from talking to the patient, review of the chart, and talking with the nurses in the ICU, Dr. Urban, and the patient's mother. Mr. Cesar is a 39-year-old gentleman who came to the hospital here last night for shortness of breath. He had presented to the [facility] with severe hypotension and shortness of breath with complaints of diarrhea for over a week, up to 15 times per day with blood. He had recently been on a steroid taper for about 2 or 3 weeks, which improved the symptoms possibly to about 7 times per week per his mother, but today he began to have shortness of breath that prompted to call EMS. He had a systolic pressure in the 40s with a heart rate of 140 when he was picked up. He was given some fluid resuscitation. Dr. Urban got involved in his care in the ER and given more fluid resuscitation. Ultimately, he had a CAT scan showing no evidence of PE. A CT scan of the abdomen pelvis showing some enteritis in the small bowel and some of the colon, but nothing in the way of toxic megacolon or colonic distention. He has had chronic swelling in his legs. His mom notes that he has had Dopplers that were negative for DVT. Here in the ICU, he has been on BiPAP for severe metabolic acidosis with lactic acid of 9. He has improved somewhat overnight. His pressor has been weaned down, but he still remains on some Levophed. I have been asked to see him to help manage the colitis. In talking with his mother, he has had edema in his legs for several months. He does drink alcohol 2 to 3 jiggers of vodka a day. He does dip snuff. In reviewing our records in the office, he was diagnosed in 2006. He has had multiple transfusions throughout his life, most recently within the past month in [place]. He saw Dr. Gao in our office at this hospital during an admission in 2018, and shortly after that, he was started on Imuran and Humira, which he states he has been compliant with and his mother indicates that as well, but his mother also notes that his diarrhea has never really gotten better than 7 times per day. In reviewing our records also, he had previous testing for QuantiFERON hepatitis B back in 2018. It is unclear if that has been done recently. He had been seen in a virtual visit with Dr. Gao a few weeks ago, at which time multiple stool studies ordered, but have not had labs, but these had not been completed by the patient or at least there are no results in the chart at this time. PAST MEDICAL HISTORY: 1. Ulcerative colitis over 10 years, pancolonic. 2. History of atrial fibrillation, also which was noted when Dr. Gao 1st saw him in this hospital in 2018. PAST SURGICAL HISTORY: He had a colonoscopy in 2018, which showed pancolitis, pseudopolyps throughout the colon, and a few polyps with possible areas of focal low-grade dysplasia that could not be excluded. That exam reportedly showed mild inflammation in the cecum and granular tissue with no loss of vascular pattern. [id number] disease in the ascending, transverse, and sigmoid colon. He has also had colonoscopy performed by Richie marte in [place] in 2012, at which time he had chronic moderately active colitis through the colon, insisted by one of the pathology report, that endoscopy report is not at this hospital. It does not seem that was performed here. Past surgical history otherwise negative. FAMILY HISTORY: Crohn disease in the aunts. SOCIAL HISTORY: The patient drinks 3 or 4 jiggers of vodka daily. He dips snuff. Does not use drugs. ALLERGIES: NONE KNOWN. MEDICATIONS: At home; 1. Potassium. 2. Lopressor. 3. Mesalamine 800 p.o. t.i.d. 4. Magnesium. 5. Iron. 6. Multaq. 7. Diltiazem. 8. Vitamin D. He in our office is also on Imuran and Humira every other week. The patient's mother notes he takes those. Medications here, he has received: 1. Albumin 25 g q.6. 2. Hydrocortisone 100 mg q.6. 3. Insulin sliding scale. 4. Electrolyte replacement protocol. 5. Levophed. 6. Protonix 40 IV q.12. 7. Zosyn 3.375. 8. Sodium bicarb drip at 200. 9. Vasopressin. REVIEW OF SYSTEMS: Unable to be obtained as the patient is on BiPAP. He cannot really talk. PHYSICAL EXAMINATION: VITAL SIGNS: Pulse is still 120, blood pressure 113/50, output 785 mL via Hernandez. GENERAL: He is resting in bed. He has a BiPAP on. He is awake. He is not really able to talk much. He does ask for some water. HEENT: Oropharynx without lesions. Neck is supple. Conjunctivae and sclerae are clear. HEART: Regular rate and rhythm. Sinus tachycardia. ABDOMEN: Protuberant with some shifting dullness and fluid wave with lack of any bowel sounds. EXTREMITIES: 3+ edema bilaterally, soft. SKIN: Without rashes or lesions. LABORATORY STUDIES: White count is 22,000 last night and 27,000 this morning, hemoglobin 9.9 last night and 8.3 today, MCV 103 and had been in the 90s back in 2018, platelets 184, and 39% bands. INR 2.1 and 1.8 yesterday. Blood gas showed pH of 7.18 on admission last night. Sodium 138, potassium is 2.9 this morning and being replaced, bicarb is 13, anion gap is 22, BUN 17, and creatinine 1.34. On admission, his creatinine was 1.2, BUN was 16, anion gap was 19 with a serum bicarb of 10 and it is 13 now. Glucose 265. Lactic acid still elevated at 9.2 and it was 9.1 last night. Calcium 6.2. Magnesium 1.1 and replaced. Phosphorus 3.3. AST 73, ALT 37, alkaline phosphatase 139, albumin is 2.2, protein 4.3, albumin was 1.8 yesterday. Lipase was normal on admission. Urinalysis showed nitrites, small amount of blood, greater than 90 red blood cells, 4 to 6 white, squames, and 2+ bacteria. Tox screen was negative. Alcohol was negative as well. SARS-CoV test negative this admission. IMAGING STUDIES: I have reviewed all films, all CAT scans. He has Dopplers of the leg, which were negative for DVT. He has chest x-ray, which shows decreased inspiratory effort. He has had a CAT scan of the chest, abdomen, and pelvis. There is no evidence of pulmonary embolus. He has some ascites in the abdomen. Pleural effusion in the chest. No pericardial effusions. Fatty liver. Fluid-filled loops of small bowel, mucosal thickening, free fluid in the pelvis, enhancement without overt distention or toxic megacolon. ASSESSMENT: 1. This is an acutely ill 39-year-old gentleman with history of longstanding ulcerative colitis, which has been poorly controlled and pancolitis. He has been on Humira and Imuran recently and it seems that he has been compliant with that. In talking with his patient's mother, but it seems that has been noneffective for the time he has been on it. More recently, he has been receiving transfusions in [place] with his primary physician. He has been on a steroid taper recently. He did have a followup with Dr. Gao, at which time he was going to get some stool studies performed and other markers of his drug levels, but at least we do not have results of those yet. Presently, he is acidotic. He is requiring BiPAP support. Differential diagnosis could have included fulminant ulcerative colitis, infectious etiologies such as Clostridium difficile, cytomegalovirus, or other opportunistic infections. Chest x-ray shows no overt signs of histoplasmosis and he has no fever to suggest or cough, though something would be considered as well. There is no overt toxic megacolon by imaging studies that I am concerned he may develop this as he has been refractory to other treatments. 2. He has had a recent history of thrush and was on Diflucan. 3. He has been on chronic steroids and is probably adrenally insufficient. 4. History of atrial fibrillation and prior echocardiogram in 01/2018. This showed left ventricular ejection fraction 55%. 5. Mildly elevated liver enzymes with elevated MCV. This could be from his Imuran or could be from the alcohol abuse. 6. Metabolic acidosis, likely related to volume depletion from severe diarrhea. PLAN: 1. Agree with broad-spectrum antibiotics and steroids. I agree with ulcer prophylaxis. 2. Emergent flexible sigmoidoscopy to evaluate colonic mucosa for signs of opportunistic infection. Obtain stool cultures and stool studies. 3. Surgical consultation for possible colectomy if he would have deterioration in clinical status and developed toxic megacolon. 4. We will check hepatitis A, B, and C QuantiFERON. 5. We will check stool for parasites including cyclosporine, Giardia, routine cultures, C difficile. 6. Consider adding Diflucan coverage with his history of recent thrush. 7. We will check CMV DNA. I agree with blood cultures which had been drawn. 8. We will give him banana bag daily in light of heavy alcohol abuse. We will check his vitamin D levels as well. I have discussed these findings and recommendations with General Surgery, Dr. Urban of ICU, the ICU nurse, and the patient's mother. Job ID: [id number]
[2020-01-09 16:44] LABS: Magnesium 1.7 mg/dL (1.6-2.6)
[2020-01-09 16:48] LABS: Phosphorus 1.6 mg/dL (2.3-4.7); Potassium 2.5 mmol/L (3.5-5.1)
[2020-01-09] MEDS ORDERED: Potassium Chloride 40 MEQ in Premix Bag 1 BAG IVPB SCH (17:00)
[2020-01-09] MEDS ORDERED: Potassium Phosphate 15 MMOL in Sodium Chloride 0.9% 100 ML IVPB SCH (17:00)
[2020-01-09] MEDS: fentaNYL Citrate/PF 2,000 MCG in Sodium Chloride 0.9% 60 ML IV SCH (17:50)
[2020-01-09] MEDS ORDERED: Potassium Chloride 20 MEQ in Premix Bag 1 BAG IVPB SCH (19:00)
[2020-01-09] MEDS ORDERED: Meropenem 1 GM in Sodium Chloride 0.9% 100 ML IVPB SCH (20:00)
[2020-01-09] MEDS: Micafungin 100 MG in Sodium Chloride 0.9% 100 ML IVPB SCH (20:17)
[2020-01-09] MEDS ORDERED: Vancomycin HCl 1 GM in Sodium Chloride 0.9% 250 ML 250 ML IVPB SCH (21:00)
[2020-01-09] MEDS: MEROPENEM 1 GM/50 ML 1 GM in Premix Bag 1 BAG IVPB SCH (21:08)
[2020-01-09 21:17] LABS: Glucose 299 mg/dL (70-105)
[2020-01-09] MEDS: Vancomycin HCl 1.25 GM in Sodium Chloride 0.9% 250 ML 250 ML IVPB SCH (22:02)
[2020-01-09] MEDS: Propofol 1,000 MG/100 ML VIAL IV PRN (23:39)
[2020-01-10 00:16] LABS: Potassium 2.9 mmol/L (3.5-5.1)
[2020-01-10] MEDS: Potassium Chloride 40 MEQ in Premix Bag 1 BAG IVPB SCH ×2 (01:49→04:28)
[2020-01-10] MEDS: Sodium Bicarbonate 140 MEQ in Dextrose 5% in Water 1,000 ML IV SCH ×2 (01:54→23:19)
[2020-01-10] MEDS: MEROPENEM 1 GM/50 ML 1 GM in Premix Bag 1 BAG IVPB SCH ×3 (04:27→20:57)
[2020-01-10 04:46] LABS: INR-International Normal Ratio 3.1
[2020-01-10 05:05] LABS: Lactic Acid 9.5 mmol/L (0.5-2.2); Phosphorus 1.6 mg/dL (2.3-4.7)
[2020-01-10 05:07] LABS: ALT (SGPT) 35 U/L (8-55); AST (SGOT) 64 U/L (5-34); Albumin 2.9 g/dL (3.5-5.0); Alkaline Phosphatase 90 U/L (40-110); Anion Gap 20 mmol/L (10-20); BUN (Urea Nitrogen) 11 mg/dL (8.9-20.6); Bilirubin, Total 1.4 mg/dL (0.2-1.2); Calc. Creatinine Clearance 116 mL/min (70-130); Calcium 6.4 mg/dL (7.8-10.44); Carbon Dioxide 21 mmol/L (22-29); Chloride 102 mmol/L (98-107); Estimated GFR-MDRD 77; Globulin 1.8 g/dL (2.4-3.5); Glucose 329 mg/dL (70-105); Magnesium 1.5 mg/dL (1.6-2.6); Potassium 3.3 mmol/L (3.5-5.1); Protein, Total 4.7 g/dL (6.0-8.3); Sodium 140 mmol/L (136-145)
[2020-01-10 05:15] LABS: Anisocytosis SLIGHT = 6-15 cells (100X) (0-5/hpf); Band 25 % (5-11); Eosinophils 1 % (0-10); Hemoglobin 7.2 g/dL (14.0-18.0); Lymphocytes 2 % (21-51); MDiff Complete? YES; Mean Corpuscular HGB CONC 32.2 g/dL (32.0-36.0); Mean Corpuscular Hemoglobin 33.2 pg (27.0-31.0); Mean Platelet Volume 9.3 fL (7.4-10.4); Ovalocytes SLIGHT = 2-5 cells (100X) (0-1/hpf); Platelet Count 123 thou/uL (130-400); RBC Distribution Width 20.9 % (11.5-14.5); Red Blood Cell (RBC) Count 2.17 mill/uL (4.70-6.10); White Blood Cell (WBC) Count 21.8 thou/uL (4.8-10.8)
[2020-01-10] MEDS ORDERED: Potassium Phosphate 15 MMOL in Sodium Chloride 0.9% 100 ML IVPB SCH (05:15)
[2020-01-10] MEDS ORDERED: Magnesium 2 GM/50 ML 2 GM in Premix Bag 1 BAG IVPB SCH (05:15)
[2020-01-10] MEDS: Propofol 1,000 MG/100 ML VIAL IV PRN ×2 (05:35→18:33)
[2020-01-10] MEDS: Hydrocortisone Sod Succ/PF 100 mg/2 ml Vial IVP SCH ×4 (05:35→21:23)
[2020-01-10] MEDS: HumaLOG 300 UNITS/3 ML VIAL SC PRN ×4 (05:37→21:20)
[2020-01-10] MEDS: Norepinephrine 8 MG/0.9% NS 250 ML IVPB SCH ×2 (06:17→17:48)
[2020-01-10 07:06] LABS: Actual Bicarbonate (HCO3a) 21.5 mEq/L (22-28); Base Excess (BEa) -0.8 mEq/L (-2.0 to +3.0); CO2 Tension 26.5 mmHg (35.0-45.0); Calcium, Ionized (arterial) 0.86 mmol/L (1.12-1.30); Carboxyhemoglobin (COHb) 0.1 gm% (0.0-3.0); Hemoglobin (Hb) 7.7 g/dL (14.0-18.0); O2 Tension (PaO2), arterial 76.8 mmHg (80.0-100.0); Potassium - ABG Lab 4.06 mmol/L (3.70-5.30); pH, Arterial 7.53 (7.35-7.45)
[2020-01-10 07:09] LABS: ALV-art Gradient 282.225 (0-20); Puncture Site RR
--- NOTE | 2020-01-10 07:48 | RAD ---
Chest one view HISTORY: Dyspnea. Follow-up. COMPARISON: 01/09/2020. FINDINGS: Cardiac silhouette is magnified. Right margin partially obscured by elevation right hemidia phragm and infiltrate/atelectasis at the right lung base. Shallow inspiration accentuates pulmonary markings. Mediastinum is midline and unchanged in position. Right perihilar prominence is unchanged in appearan ce. IMPRESSION : Stable radiographic appearance of the chest.
[2020-01-10] MEDS ORDERED: Phytonadione 10 MG in Sodium Chloride 0.9% 50 ML IVPB SCH (08:00)
--- NOTE | 2020-01-10 08:46 | PRG ---
DATE OF SERVICE: 01/10/2020 35 minutes of critical care time. SUBJECTIVE: The patient remains intubated, on mechanical ventilation. He will wake up to voice. OBJECTIVE: VITAL SIGNS: Temperature 97.7 with no fever overnight, pulse in the 90s to low 100s, blood pressure 107/71, on a Levophed drip set at 12 mcg/minute, O2 saturation 99%, respiratory rate 25. His total intake for the last 24 hours has been 6066 mL, output 2200 mL. HEENT: Remarkable for pale oral mucous membranes and intubated trachea. NECK: No adenopathy or JVD. CHEST: Diminished breath sounds at both bases. CARDIAC: S1 and S2. Slightly tachycardic. ABDOMEN: Distended. Slightly tympanic. Also fluid present. EXTREMITIES: Edematous. LABORATORY DATA: Sodium 140, potassium 3.3, chloride 102, CO2 of 21, BUN 11, creatinine 1.1, glucose 329, last measured lactate 9.5, phosphorus 1.6, AST 64, ALT 35, albumin 2.9. PH of 7.53, pCO2 of 26, pO2 of 76 on SIMV rate 25, tidal volume 500, PEEP 10, pressure support 10, FiO2 of 55%. White blood cell count 21.8, hematocrit 22.3, and platelet count 123. His x-ray shows poor diaphragmatic excursion secondary to the abdominal distention, ET tube about 4 cm above the beth. ASSESSMENT: 1. Acute respiratory failure requiring mechanical ventilation. 2. Severe metabolic acidosis, which has improved with mechanical ventilation and the bicarbonate infusion. 3. Ulcerative colitis, which does not seem to be exacerbated by colonoscopy yesterday. 4. Ascites and other underlying issues, which seemed to indicate that he has acute liver damage on top of chronic liver disease. PLAN: 1. He is not weanable, but I have adjusted his respiratory rate lower for his alkalosis. 2. Stop bicarbonate infusion and try to restrict IV fluids. 3. Continue antibiotics as per ID. 4. GI may need to consider a large volume paracentesis. 5. Reduce steroid dose. 6. Wean vasopressor as tolerated. 7. Add NPH insulin for hyperglycemia. 8. Given another dose of vitamin K given INR is 3. Job ID: [id number]
[2020-01-10] MEDS: Pantoprazole 40 MG VIAL IVP SCH ×2 (09:16→21:23)
--- NOTE | 2020-01-10 09:34 | PDOC.HOSPP ---
- Subjective Encounter Date: 01/10/20 Encounter Time: 09:31 Subjective: Mr. Cesar was seen today in follow-up of septic shock. He remains intubated. No new complaints. - Objective Vital Signs & Weight: Vital Signs (12 hours) Temp Pulse Resp BP 01/10/20 07:41 25 H 01/10/20 07:37 90 107/71 01/10/20 06:00 25 H 01/10/20 04:00 97.7 F 25 H 01/10/20 02:00 25 H 01/10/20 00:00 97.7 F 25 H 01/09/20 22:00 25 H Weight Weight 194 lb 10.691 oz Most Recent Monitor Data Heart Rate from ECG 90 NIBP 107/74 NIBP BP-Mean 88 Respiration from ECG 25 SpO2 98 I&O: 01/09/20 01/10/20 01/11/20 06:59 06:59 06:59 Intake Total 2482.9 6066.8 Output Total 785 2200 Balance 1697.9 3866.8 Result Diagrams: 01/10/20 04:30 01/10/20 04:30 Additional Labs: Accuchecks 01/10/20 01/09/20 01/09/20 07:33 23:43 19:02 POC Glucose 262 H 295 H 214 H 01/09/20 01/09/20 16:15 09:36 POC Glucose 181 H 294 H Hospitalist ROS - Medication Medications: Active Medications Generic Name Dose Route Start Last Admin Trade Name Freq PRN Reason Stop Dose Admin Hydrocortisone Sodium Succinate 50 mg 01/10/20 09:00 01/10/20 09:16 Solu-Cortef IVP 50 mg Q6H ABRAM Administration Vasopressin 20 unit/ 51 mls @ 0 mls/hr 01/08/20 18:00 01/09/20 06:46 Miscellaneous Medication 1 IV 51 mls each/ Sodium Chloride INF ABRAM Administration Protocol As Directed Norepinephrine Bitartrate 250 mls @ 0 mls/hr 01/08/20 20:15 01/10/20 06:17 Levophed IVPB 250 mls INF ABRAM Administration Protocol Titrate Fentanyl Citrate 2,000 mcg/ 100 mls @ 0 mls/hr 01/09/20 11:52 01/09/20 17:50 Sodium Chloride IV 02/08/20 11:52 100 mls INF ABRAM Administration Protocol Per Protocol Multivitamins 10 ml/ Folic 1,011.2 mls @ 0 mls/hr 01/09/20 12:00 01/09/20 12:57 Acid 1 mg/ Thiamine HCl 100 mg IV 01/15/20 23:59 1,011.2 mls / Dextrose/Sodium Chloride Q24HR ABRAM Administration As Directed Levofloxacin 750 mg/ Device 150 mls @ 100 mls/hr 01/09/20 18:00 01/09/20 18:20 IVPB 150 mls 1800 ABRAM Administration Micafungin Sodium 100 mg/ 100 mls @ 100 mls/hr 01/09/20 19:00 01/09/20 20:17 Sodium Chloride IVPB 100 mls 1900 ABRAM Administration Meropenem 1 gm/ Device 50 mls @ 200 mls/hr 01/09/20 20:00 01/10/20 04:27 IVPB 50 mls 0400,1200,2000 ABRAM Administration Vancomycin HCl 1.25 gm/ Sodium 250 mls @ 166.667 mls/hr 01/09/20 21:00 01/09/20 22:02 Chloride IVPB 250 mls 0900,2100 ABRAM Administration Potassium Chloride 40 meq/ 100 mls @ 25 mls/hr 01/10/20 02:00 01/10/20 04:28 Device IVPB 01/10/20 09:59 100 mls Q4H ABRAM Administration Phytonadione 10 mg/ Sodium 51 mls @ 120 mls/hr 01/10/20 08:00 01/10/20 09:15 Chloride IVPB 01/10/20 10:00 51 mls NOW ABRAM Administration Insulin Human Lispro 0 units 01/09/20 08:33 01/10/20 05:37 Humalog SC 5 unit .MILD SLIDING SCALE PRN Administration Mild Correctional Scale Pantoprazole Sodium 40 mg 01/09/20 09:00 01/10/20 09:16 Protonix IVP 40 mg Q12HR ABRAM Administration Propofol 1,000 mg 01/09/20 11:52 01/10/20 05:35 Diprivan IV 02/08/20 11:52 1,000 mg INF PRN Administration TO ACHIEVE GOAL RASS Protocol - Exam Eye: PERRL ENT: normocephalic atraumatic, no oropharyngeal lesions Heart: RRR, no murmur, no gallops, no rubs, normal peripheral pulses Respiratory: CTAB (+ decreased breath sounds at the bases) Gastrointestinal: soft, distended Extremities: 2+ LE edema Hosp A/P (1) Septic shock Code(s): A41.9 - SEPSIS, UNSPECIFIED ORGANISM; R65.21 - SEVERE SEPSIS WITH SEPTIC SHOCK Status: Acute (2) Ulcerative colitis Code(s): K51.90 - ULCERATIVE COLITIS, UNSPECIFIED, WITHOUT COMPLICATIONS Stat us: Chronic (3) Acute kidney injury Code(s): N17.9 - ACUTE KIDNEY FAILURE, UNSPECIFIED Status: Acute (4) Hypokalemia Code(s): E87.6 - HYPOKALEMIA Status: Acute (5) Hypomagnesemia Code(s): E83.42 - HYPOMAGNESEMIA Status: Acute - Plan * Septic shock- continue IV fluids, and pressor. He continues on Levophed drip. * Continue Zosyn and follow-up on culture results * Discussed with Dr. Pang yesterday- he is at risk for opportunistic infections. Given his grave illness will consult ID to help with antimicrobial choice * Stool studies have been sent * Ascites- he has a history of heavy alcohol use. He may have cirrhosis. Will defer need for paracentesis to GI * DAE- due to sepsis, and volume depletion- worsening- will continue to monitor * Hypokalemia- replace electrolytes as needed * Hypomagnesemia- replace * Ulcerative Colitis- currently quiescent
[2020-01-10] MEDS: Vancomycin HCl 1.25 GM in Sodium Chloride 0.9% 250 ML 250 ML IVPB SCH ×2 (09:46→21:08)
[2020-01-10] MEDS: NPH, Human Insulin Isophane 300 UNIT/3 ML VIAL SC SCH ×2 (09:47→21:20)
--- NOTE | 2020-01-10 11:18 | OP ---
DATE OF PROCEDURE: 01/09/2020 PROCEDURE PERFORMED: Intubation. INDICATION: The patient is in respiratory failure, on BiPAP, but needs flexible sigmoidoscopy. DESCRIPTION OF PROCEDURE: The patient gave verbal consent prior to procedure. The patient was placed in supine position and pre-oxygenated with 100% oxygen on BiPAP. He received 40 mg of etomidate as an induction agent. He was intubated orally with GlideScope visualization on the first attempt with 7.5 mm endotracheal tube. He tolerated the procedure well. Job ID: [id number]
--- NOTE | 2020-01-10 15:04 | OP ---
DATE OF PROCEDURE: 01/09/2020 PREPROCEDURE DIAGNOSES: 1. History of chronic ulcerative colitis. 2. History of refractory diarrhea for the past 2 months. 3. History of multiple steroid tapers without improvement. 4. Stool studies pending. 5. Admission to the hospital with dehydration, severe metabolic acidosis, elevated lactic acid. CAT scan with no signs of toxic megacolon, but some possible mild enteritis. POSTPROCEDURE DIAGNOSES: 1. Colon shows no signs of acute or active colitis. There are multiple pseudopolyps throughout the colon. There was a stricture at the descending colon at 60 cm that appears benign. Random biopsies were taken from the ascending colon, ileum, descending colon, and sigmoid colon. 2. Terminal ileum appears normal. 3. There are no signs of acute active colitis or ileitis. There are no signs of pseudomembranes or Clostridium difficile. There are no signs of opportunistic infections or ulcerations. Random biopsies were obtained and the stool studies were collected for the nurse from the ICU. ANESTHESIA: The patient was intubated during the procedure and he will remain intubated in the ICU after this. PROCEDURE IN DETAIL: After the patient was informed of the risks, benefits, and possible complications of endoscopy including perforation, reaction to medication, aspiration as well as his mother being informed that mainly the goal being to identify if he has active infectious or opportunistic colitis in top of his ulcerative colitis causing his acute severe critical illness, informed consent was obtained. The patient was intubated by the ICU physician. The patient was then placed in his left lateral decubitus position. The endoscope was advanced through the anal canal. There were pseudopolyps encountered almost immediately. There was no evidence of pseudomembranes or ulcers. There was atrophy of the mucosa of the colon, but there was no active inflammation or colitis. After about 60 cm, the scope could not be advanced beyond this area secondary to the large number of pseudopolyps and some slight tightness in the colon. Due to the concern for possible perforation, the scope was removed and we replaced it with some more flexible upper endoscope. With this, we were able to easily navigate the colon, all the way to the cecum into the terminal ileum. The ileum appeared normal. Random biopsies were obtained. The cecum and the ascending colon were full of pseudopolyps, but no overt evidence of malignancy. Surveillance biopsies were not obtained as this was a purely diagnostic procedure with regard to his acute illness. Multiple biopsies were taken in the ascending, descending, and sigmoid colon. The stool samples were suctioned to trap and given to the ICU nurse to perform the stool test that had been previously ordered. Throughout the colon, there were 100s if not 1000s of pseudopolyps. There was no overt gross malignancy. Again, some random biopsies were obtained. However, biopsies and removal of pseudopolyps were not performed for surveillance for malignancy in light of the patient's severe critical illness and requiring pressors at this time. The colon was desufflated. The patient tolerated the procedure well. There were no complications. Job ID: [id number]
[2020-01-10 15:12] LABS: Phosphorus 2.8 mg/dL (2.3-4.7)
[2020-01-10] MEDS: fentaNYL Citrate/PF 2,000 MCG in Sodium Chloride 0.9% 60 ML IV SCH (17:06)
[2020-01-10] MEDS: Multivitamins, Adult 10 ML, Folic Acid 1 MG, Thiamine HCl 100 MG in Dextrose 5 %-0.45 %... IV SCH (17:35)
--- NOTE | 2020-01-10 18:08 | PRG ---
DATE OF SERVICE: 01/10/2020 SUBJECTIVE: Mr. Cesar remains intubated since yesterday. In talking with his nurse, he continued to require pressors. He has been a little hypothermic. He has a heating blanket on. OBJECTIVE: VITAL SIGNS: Temperature is 97 presently, pulse 96, blood pressure 120/87. Ins 6066, out 2200, positive 3866. GENERAL: He is intubated. He has NG tube in place with minimal output. LUNGS: Clear. HEART: Regular rate and rhythm without clicks, rubs, or murmurs. ABDOMEN: Protuberant, it is not tight, but he does have some fluid wave. EXTREMITIES: Reveal 3+ edema. NEUROLOGIC: He sedated. LABORATORY DATA: Stool C difficile negative. Campylobacter negative. Giardia and Cryptosporidium negative. Lactoferrin positive. Shiga toxin negative. Urine culture negative. Blood cultures negative. Labs otherwise, white count 21,000, hemoglobin 7.2, he is given 1 unit of blood today, platelets 123, and 24% bands. INR is 3. PH 7.53. Sodium 140, potassium 3.3, BUN and creatinine are 11 and 1.8, glucose 262. Lactic acid still elevated at 9.5. AST and ALT are 64 and 35, magnesium 1.5, bilirubin 1.4. Phosphorus 1.6, being replaced. Magnesium 1.5, being replaced. Albumin 2.9, total protein 4.7. Hepatitis A, B, C negative. Pending labs; CMV, Cyclospora smear, histoplasmosis antigen in urine, Norovirus, QuantiFERON. ASSESSMENT: 1. History of ulcerative colitis, admitted with diarrhea for several weeks and recent prednisone taper by Dr. Terry in [place], admitted severe systemic inflammatory response syndrome with concern for toxic megacolon. However, CT showed none of these. Flex-sig yesterday turned into a full colonoscopy. He was noted to have atrophic mucosa and scarring throughout his colon, but no signs of active inflammation or C diff. Random biopsies were obtained. His ileum was normal as well. 2. CT scan shows some ascites and some thickening of small bowel loops. One wonders if this is portal hypertension. He has had a history of heavy alcohol abuse, low platelets and abnormal liver function tests consistent with alcoholic liver disease. 3. Still requiring pressors, still with lactic acidosis, may be residual from liver disease. All stool cultures negative at this point in time. Stool studies pending as above. RECOMMENDATIONS: 1. Continue ICU support. Continue broad spectrum antibiotics. Continue stress dose steroids. We will await workup for opportunistic infections in light of the biologic medications he is on. 2. With regard to paracentesis, he is going to need FFP before that. I will talk with Dr. Valdez and see if he wants to go down that route. If he feels like from a respiratory standpoint, he needs to be tapped, otherwise it may be best to plan that tomorrow. Job ID: [id number]
--- NOTE | 2020-01-10 20:34 | PRG ---
DATE OF SERVICE: 01/10/2020 The original consult dictation was lost by the company [employer] worker service. This is a follow up note. Unfortunately, this is a very critically-ill patient and he basically came in with sepsis with a history of ulcerative colitis on steroids and mesalamine became septic. Dr. Pang did an endoscopy. Other than pseudopolyps, there is no evidence of active colitis. There was a stricture in the descending colon at 60 cm, which appeared benign. Terminal ileum appeared normal. No evidence of pseudomembranes either. The patient had been on pressors and he has this area of purpuric blistering lesion in the right anterior chest and there was a concern with Aspergillus and Pseudomonas, so the patient has been on broad-spectrum coverage. We extended to include meropenem, quinolone, vancomycin, and antifungal coverage. PHYSICAL EXAMINATION: VITAL SIGNS: He has been afebrile and heart rate 99, respiratory rate 18, and O2 saturations are 98%. LUNGS: The exam is pretty much unchanged from yesterday with bilateral lungs sounds, that lesion is about the same. There is central blistering. HEART: S1, S2 regular rate. anymore. ABDOMEN: Slightly distended. Question of ascites. EXTREMITIES: Well perfused. LABORATORY DATA: His white cell count today is 21.8, hemoglobin 7.2, platelets 123 with 25% bands, which is down from admission when it was 62% bands. The INR is 3.1. PH of 7.53, pCO2 of 26, and pO2 of 76. Sodium 140, creatinine 1.08, and glucose 329 with calcium of 6.4, AST 64, ALT 35, alkaline phosphatase 90, and albumin 2.9. Microbiology, we have negative C difficile, Campylobacter antigen assay was negative. Stool lactoferrin was elevated. ASSESSMENT: Ulcerative colitis history, on intermittent corticosteroids and mesalamine, now with sepsis syndrome with purpuric lesion in the anterior chest. The patient is on broad-spectrum coverage. We do not have an obvious source at this point. The pathology from the ileal biopsies is pending. Job ID: [id number] [facility]
[2020-01-10] MEDS: Micafungin 100 MG in Sodium Chloride 0.9% 100 ML IVPB SCH (20:56)
[2020-01-11] MEDS: HumaLOG 300 UNITS/3 ML VIAL SC PRN ×5 (00:26→20:56)
[2020-01-11] MEDS: Propofol 1,000 MG/100 ML VIAL IV PRN ×4 (00:54→17:38)
[2020-01-11] MEDS: Hydrocortisone Sod Succ/PF 100 mg/2 ml Vial IVP SCH ×4 (03:09→20:53)
[2020-01-11] MEDS: MEROPENEM 1 GM/50 ML 1 GM in Premix Bag 1 BAG IVPB SCH ×3 (04:08→20:52)
[2020-01-11 04:42] LABS: INR-International Normal Ratio 1.6; Prothrombin Time 19.1 sec (12.0-14.7)
[2020-01-11 05:02] LABS: ALT (SGPT) 35 U/L (8-55); AST (SGOT) 61 U/L (5-34); Albumin 2.8 g/dL (3.5-5.0); Alkaline Phosphatase 116 U/L (40-110); Anion Gap 15 mmol/L (10-20); BUN (Urea Nitrogen) 12 mg/dL (8.9-20.6); Calc. Creatinine Clearance 119 mL/min (70-130); Calcium 6.5 mg/dL (7.8-10.44); Carbon Dioxide 25 mmol/L (22-29); Chloride 103 mmol/L (98-107); Estimated GFR-MDRD 69; Glucose 181 mg/dL (70-105); Magnesium 1.8 mg/dL (1.6-2.6); Phosphorus 2.6 mg/dL (2.3-4.7); Potassium 4.1 mmol/L (3.5-5.1); Protein, Total 4.8 g/dL (6.0-8.3); Sodium 139 mmol/L (136-145)
[2020-01-11 05:11] LABS: Anisocytosis SLIGHT = 6-15 cells (100X) (0-5/hpf); Band 20 % (5-11); Lymphocytes 2 % (21-51); MDiff Complete? YES; Mean Corpuscular HGB CONC 32.7 g/dL (32.0-36.0); Mean Corpuscular Hemoglobin 32.2 pg (27.0-31.0); Mean Corpuscular Volume 98.7 fL (78.0-98.0); Mean Platelet Volume 9.8 fL (7.4-10.4); Platelet Count 113 thou/uL (130-400); Platelet Morphology Comment Appears Decreased; RBC Distribution Width 21.7 % (11.5-14.5); White Blood Cell (WBC) Count 20.6 thou/uL (4.8-10.8)
[2020-01-11] MEDS ORDERED: Magnesium 2 GM/50 ML 2 GM in Premix Bag 1 BAG IVPB SCH (05:15)
[2020-01-11] MEDS: Norepinephrine 8 MG/0.9% NS 250 ML IVPB SCH ×2 (05:37→19:03)
[2020-01-11] MEDS ORDERED: Calcium Gluconate 4.6 MEQ in Sodium Chloride 0.9% 100 ML IVPB SCH (06:30)
[2020-01-11 06:35] LABS: Actual Bicarbonate (HCO3a) 23.5 mEq/L (22-28); Base Excess (BEa) 1.8 mEq/L (-2.0 to +3.0); Calcium, Ionized (arterial) 0.89 mmol/L (1.12-1.30); Carboxyhemoglobin (COHb) 0.3 gm% (0.0-3.0); Hemoglobin (Hb) 9.4 g/dL (14.0-18.0); O2 Tension (PaO2), arterial 109.7 mmHg (80.0-100.0)
[2020-01-11 06:39] LABS: Puncture Site RRA; pH, Arterial 7.56 (7.35-7.45)
--- NOTE | 2020-01-11 07:39 | RAD ---
Chest one view HISTORY: Pneumonia. Follow-up. COMPARISON: 01/10/2020. FINDINGS: Cardiac silhouette is magnified by projection. Right margin remains partially obscured by r ight hemidiaphragm elevation and parenchymal opacity at the right base. Mediastinum is midline. Lines and tubes are unchanged in position. No evidence of pneumothorax. IMPRESSION : Stable radiographic appearance of the chest.
--- NOTE | 2020-01-11 08:13 | CON ---
DATE OF CONSULTATION: 01/09/2020 REASON FOR CONSULTATION: Sepsis. HISTORY OF PRESENT ILLNESS: 39-year-old patient with longstanding history of ulcerative colitis, previously treated with corticosteroids and mesalamine, has had one prior admission with severe anemia, has had two colonoscopies in the record here in the hospital. Apparently, he also drinks daily. It is not clear what the extent of his alcoholic beverage use, but he developed uncontrollable diarrhea, generalized weakness, inability to stand up or ambulate, had some dyspnea and hypotension identified in [place] [facility], tachycardia. Lactic acid was elevated at 9. He had a CT of head, which was not remarkable. CT of abdomen and pelvis with [id number] ascites and fluid in small bowel identified. He was started on pressors, vasopressin, Levophed, given 1 amp of bicarb, broad-spectrum antimicrobial coverage, and shipped to [facility] to be admitted. On arrival, he was more alert, looked chronic, and acutely ill. Apparently, he has had hematochezia recently, the last time he had been on corticosteroids was about 2 weeks before admission. No headaches. No visual symptoms. No cough. Some abdominal cramps. No genitourinary symptoms. On arrival, his blood pressure was 107/69, heart rate 123, respiratory rate 27, temperature 97.5. In [place], the temperature was 102, he was satting 94% on 2 L nasal cannula. The exam showed distention of the abdomen. 2+ pitting edema. He was moving all extremities. Initial findings also included white cell count 22.7, hemoglobin 9.9, MCV 104, platelets 241, 62% bands. INR 1.8. pH of 7.18 and 7.36, pCO2 was 27 and now 28, PO2 was 83 and 87. Initial chemistry with a sodium 135, creatinine 1.2, glucose 34. Lactic acid 9.1. A repeat lactic acid a few hours later was still 9.1, AST 71, alkaline phosphatase 181, albumin 1.8. Urinalysis with 4 to 6 wbc's, greater than 300 protein. COVID was not detected. Hepatitis serology was negative. The patient had to be intubated. He is in ICU now. He is receiving broad-spectrum coverage with Zosyn. PAST MEDICAL HISTORY: Includes ulcerative colitis, atrial fibrillation, anemia, type 2 diabetes, hypertension, has had blood transfusions in the past. He has had 2 colonoscopies at least. He had been on prednisone intermittently plus mesalamine. SOCIAL HISTORY: He drinks daily. Apparently, he has very limited extent of the EtOH use history. According to the ER note, he drinks less than 5 drinks per day reportedly. No other drug use. He does use tobacco for chewing, but does not smoke. ALLERGIES: NONE REPORTED. MEDICATIONS: He had been on; 1. Atenolol. 2. Metformin. 3. Magnesium replacement. PHYSICAL EXAMINATION: VITAL SIGNS: His temperature has remained normal in the hospital, his blood pressure 109/69 on low-dose Levophed, still tachycardia at 121 and satting at 100 with FiO2 of 50, PEEP of 5. SKIN: Shows an area of violaceous patch in the right anterior chest area. The central areas of this patch have a more yellowish tone to it. It is not palpable. It is kind of regularly distributed over the surface of the right anterior chest skin close to the axilla. There seems to be a blistering at the center of this lesion. No other similar lesions are noticeable in the remainder aspect of his skin. He has bilateral peripheral IV accesses and a Hernandez catheter. His output was 1180 over the past few hours. HEENT: Pupils are constricted. Pale conjunctivae. Oral tracheal intubation. LUNGS: Symmetric air entry. No obvious crackles or wheezing. HEART: S1 and S2, regular rate. ABDOMEN: Distended with ascites. No organomegaly or bladder distention. No joint inflammatory activity. EXTREMITIES: Cool extremities. Some edema. Pulses 1+ in dorsalis pedis. No reflexes are noticeable at this time. NEUROLOGIC: He looks around sometimes, but does not establish eye contact. Does not follow commands. DIAGNOSTIC STUDIES: Sodium 138, creatinine 1.34, glucose 265. Lactic acid still up at 9.2. AST 73. Albumin 2.2. The urinalysis has been discussed. Microbiology with no growth at 12 hours, urine and blood two sets. Chest x-ray with small effusions. Linear atelectasis. Chest CT with no pulmonary embolism and sort of veil-like areas of opacification with symmetric distribution. Toxic screen was negative. Plasma alcohol less than 10. ASSESSMENT: 1. Longstanding ulcerative colitis on intermittent corticosteroids and mesalamine with less than optimal control and reportedly still with intermittent hematochezia and frequent diarrhea. 2. Acute onset of sepsis with violaceous lesion in the anterior chest skin, severe hyperlactatemia and leukoerythroblastic picture in the peripheral smear. 3. Abnormalities noted on chest CT scan and abdomen CT with increased fluid in the small bowel. DISCUSSION: The differential diagnosis includes sepsis due to bacterial or fungal etiologies, Pseudomonas aeruginosa is a particular concern due to the violaceous blistering lesion in the right anterior chest area, which resembles the beginning features of ecthyma gangrenosum. Fungal infections can also be associated with similar findings, particularly with Aspergillus. Several factors will increase the risk of invasive bacterial infections in patients with inflammatory bowel disease including changes in barrier function of the intestine leading to increased permeability, malnutrition, associated with immune dysfunction, and effects of the treatment provided both for the inflammatory bowel disease, particularly corticosteroids, but also sometimes tumor necrosis factor inhibitors. It does not appear that he has had TNF inhibitor treatment thus far, although he has received corticosteroids intermittently. Mycobacterial infections including mycobacterium tuberculosis, Staphylococcus aureus are also part of the concern in those patients. There is no evidence of toxic megacolon, C difficile needs to be evaluated, but appears to be less likely. He does have increased fluid in the small bowel areas, which is usually not seen in ulcerative colitis patients unless they have an additional complication. Patients may have sometimes presentations that are not precisely well differentiated between ulcerative colitis and Crohn disease though. Listeria monocytogenes sometimes can cause complications in patients with ulcerative colitis on chronic corticosteroids as well. The patient is on appropriate supplemental corticosteroid administration. We will switch the patient to meropenem, a second gm negative coverage such as quinolone, vancomycin, and an antifungal oral regimen with micafungin until culture results are back. Submit C diff and stool as well. Job ID: [id number] [facility]
[2020-01-11] MEDS: Pantoprazole 40 MG VIAL IVP SCH ×2 (08:44→20:55)
[2020-01-11 09:13] LABS: Neutrophil 78 % (42-75)
[2020-01-11 09:20] LABS: INR-International Normal Ratio 1.3; PTT 34.2 sec (22.9-36.1); Prothrombin Time 16.6 sec (12.0-14.7)
--- NOTE | 2020-01-11 09:34 | PRG ---
DATE OF SERVICE: 01/11/2020 TIME: Thirty five minutes of critical care time. SUBJECTIVE: The patient remains intubated on mechanical ventilation. There have been no acute changes overnight. OBJECTIVE: VITAL SIGNS: Temperature 97.8, pulse 74, blood pressure 102/82, O2 saturation 99%. He is on norepinephrine at a rate of 10 mcg/minute. 24-hour intake 3302, output 604, weight of 218 pounds. HEENT: Unremarkable except for being intubated. NECK: No JVD. LUNGS: Diminished breath sounds at the bases. CARDIAC: S1 and S2, regular. ABDOMEN: Distended. EXTREMITIES: Edematous. LABORATORY DATA: Sodium 139, potassium 4.1, chloride 103, CO2 of 25, BUN 12, creatinine 1.2, glucose 181, calcium 6.5, albumin 2.8, pH of 7.56, pCO2 of 27, PO2 of 109, SIMV rate 18, tidal volume 500, PEEP 10, pressure support 10, FiO2 45%. White blood cell count 20.6, hematocrit 27.6, and platelet count 113. INR is 1.6 and he is scheduled to get FFP today. ASSESSMENT: 1. Acute respiratory failure requiring mechanical ventilation. 2. Alcoholic cirrhosis with decompensation. 3. Ulcerative colitis. 4. Ascites. 5. Metabolic acidosis, which has been corrected. PLAN: 1. Reduce ventilator rate to compensate for the alkalosis. 2. Paracentesis, planned for today. 3. Continue antibiotics per ID. 4. Calcium has been given by the [facility]. 5. Reduce dose of hydrocortisone. Job ID: [id number]
[2020-01-11] MEDS: Vancomycin HCl 1.25 GM in Sodium Chloride 0.9% 250 ML 250 ML IVPB SCH (10:03)
[2020-01-11] MEDS: NPH, Human Insulin Isophane 300 UNIT/3 ML VIAL SC SCH ×2 (10:03→20:55)
[2020-01-11 10:55] LABS: Neutrophil 72 % (42-75)
--- NOTE | 2020-01-11 11:17 | PDOC.HOSPP ---
- Subjective Encounter Date: 01/11/20 Encounter Time: 11:16 Subjective: Mr. Cesar was seen today in follow-up of septic shock and probable alcoholic liver disease. He remains intubated. - Objective Vital Signs & Weight: Vital Signs (12 hours) Temp Pulse Pulse Resp BP BP Pulse Ox 01/11/20 10:25 71 01/11/20 10:00 18 01/11/20 08:00 97.8 F 18 01/11/20 07:09 97.9 F 84 18 98/78 100 01/11/20 06:52 98.8 F 85 18 97/75 100 01/11/20 06:40 98.4 F 97 18 99/77 98 01/11/20 06:39 98.8 F 86 18 105/81 100 01/11/20 06:25 86 98/75 01/11/20 06:00 18 01/11/20 04:30 98.6 F 84 18 101/80 100 01/11/20 04:00 98.7 F 18 01/11/20 02:21 90 96/71 01/11/20 02:00 18 01/11/20 00:00 97.9 F 18 Weight Admit Weight 194 lb Weight 218 lb 0.595 oz Most Recent Monitor Data Heart Rate from ECG 71 NIBP 98/73 NIBP BP-Mean 82 Respiration from ECG 9 SpO2 97 I&O: 01/10/20 01/11/20 01/12/20 06:59 06:59 06:59 Intake Total 6066.8 3302 Output Total 2200 604 40 Balance 3866.8 2698 -40 Result Diagrams: 01/11/20 04:15 01/11/20 04:15 Additional Labs: Accuchecks 01/11/20 01/11/20 01/11/20 08:20 04:24 00:31 POC Glucose 189 H 188 H 216 H 01/10/20 01/10/20 21:24 16:31 POC Glucose 210 H 202 H Hospitalist ROS - Medication Medications: Active Medications Generic Name Dose Route Start Last Admin Trade Name Freq PRN Reason Stop Dose Admin Hydrocortisone Sodium Succinate 50 mg 01/11/20 09:00 01/11/20 09:14 Solu-Cortef IVP Not Given BID ABRAM Vasopressin 20 unit/ 51 mls @ 0 mls/hr 01/08/20 18:00 01/09/20 06:46 Miscellaneous Medication 1 IV 51 mls each/ Sodium Chloride INF ABRAM Administration Protocol As Directed Norepinephrine Bitartrate 250 mls @ 0 mls/hr 01/08/20 20:15 01/11/20 05:37 Levophed IVPB 250 mls INF ABRAM Administration Protocol Titrate Fentanyl Citrate 2,000 mcg/ 100 mls @ 0 mls/hr 01/09/20 11:52 01/10/20 17:06 Sodium Chloride IV 02/08/20 11:52 100 mls INF ABRAM Administration Protocol Per Protocol Multivitamins 10 ml/ Folic 1,011.2 mls @ 0 mls/hr 01/09/20 12:00 01/10/20 17: 35 Acid 1 mg/ Thiamine HCl 100 mg IV 01/15/20 23:59 1,011.2 mls / Dextrose/Sodium Chloride Q24HR ABRAM Administration As Directed Levofloxacin 750 mg/ Device 150 mls @ 100 mls/hr 01/09/20 18:00 01/10/20 18: 34 IVPB 150 mls 1800 ABRAM Administration Micafungin Sodium 100 mg/ 100 mls @ 100 mls/hr 01/09/20 19:00 01/10/20 20:56 Sodium Chloride IVPB 100 mls 1900 ABRAM Administration Meropenem 1 gm/ Device 50 mls @ 200 mls/hr 01/09/20 20:00 01/11/20 04:08 IVPB 50 mls 0400,1200,2000 ABRAM Administration Insulin Human Lispro 0 units 01/09/20 08:33 01/11/20 10:05 Humalog SC 2 unit .MILD SLIDING SCALE PRN Administration Mild Correctional Scale Insulin Human NPH 20 unit 01/10/20 09:00 01/11/20 10:03 Humulin N SC 20 unit BID ABRAM Administration Pantoprazole Sodium 40 mg 01/09/20 09:00 01/11/20 08:44 Protonix IVP 40 mg Q12HR ABRAM Administration Propofol 1,000 mg 01/09/20 11:52 01/11/20 05:41 Diprivan IV 02/08/20 11:52 1,000 mg INF PRN Administration TO ACHIEVE GOAL RASS Protocol - Exam Eye: PERRL, anicteric sclera Heart: RRR, no murmur, no gallops, no rubs, normal peripheral pulses Respiratory: CTAB (coarse breath sounds) Gastrointestinal: distended (+ flank dullness) Extremities: 2+ LE edema (+ gross anasarca) Hosp A/P (1) Septic shock Code(s): A41.9 - SEPSIS, UNSPECIFIED ORGANISM; R65.21 - SEVERE SEPSIS WITH SEPTIC SHOCK Status: Acute (2) Ulcerative colitis Code(s): K51.90 - ULCERATIVE COLITIS, UNSPECIFIED, WITHOUT COMPLICATIONS Status: Chronic (3) Acute kidney injury Code(s): N17.9 - ACUTE KIDNEY FAILURE, UNSPECIFIED Status: Acute (4) Hypokalemia Code(s): E87.6 - HYPOKALEMIA Status: Acute (5) Hypomagnesemia Code(s): E83.42 - HYPOMAGNESEMIA Status: Acute - Plan * Septic shock- continue IV fluids, and pressor. He continues on Levophed drip. * ID recommendations noted- continue Meropenem, Micafungin,Levaquin and Vancomycin * Stool studies are negative * Ascites- he will go for diagnostic paracentesis today * DAE- due to sepsis, and volume depletion-renal function has stabilized * FEN- agree with beginning tube feeds soon * Hypokalemia- improved * Hypomagnesemia- improved * Ulcerative Colitis- currently quiescent
[2020-01-11 11:53] LABS: Neutrophil 53 % (42-75)
[2020-01-11] MEDS ORDERED: Lidocaine 1% PF 5 ML VIAL ONE (12:40)
[2020-01-11] MEDS ORDERED: Sodium Bicarbonate 2.5 MEQ/5 ML VIAL ONE (12:40)
[2020-01-11] MEDS: Multivitamins, Adult 10 ML, Folic Acid 1 MG, Thiamine HCl 100 MG in Dextrose 5 %-0.45 %... IV SCH ×2 (12:50→17:39)
[2020-01-11] MEDS: fentaNYL Citrate/PF 2,000 MCG in Sodium Chloride 0.9% 60 ML IV SCH (13:59)
--- NOTE | 2020-01-11 15:05 | PRG ---
DATE OF SERVICE: 01/11/2020 SUBJECTIVE: Mr. Cesar is intubated. His path report from the EGD is available and did not show any major findings. OBJECTIVE: VITAL SIGNS: Temperature max 97.6, blood pressure 95/75, O2 saturations are 100 with FiO2 of 40, and heart rate 69. He is off pressors now. LUNGS: Symmetric air entry. HEART: S1 and S2, regular rate. ABDOMEN: Moderately distended. The patient has indwelling catheter. I's and O's are positive for the past 3 days. LABORATORY DATA: White cell count 20.6, hemoglobin 9, platelets 113, with 20% bands. The bands are down from the admit at 62, so it is reassuring somewhat. Creatinine is improved at 1.18. No growth in all the samples submitted. C difficile negative. ASSESSMENT AND DISCUSSION: Longstanding ulcerative colitis, seems to be in remission at this point according to Dr. Pang' colonoscopy and biopsies. Possible liver disease with alcoholism, sepsis, violaceous lesion in the anterior chest skin with concern for a Pseudomonas or similar pathogen, fungal sepsis less likely but not ruled out. Continue broad spectrum coverage. Awaiting either identification of a pathogen or clinical improvement prior to deescalation of therapy. Job ID: [id number] [facility]
--- NOTE | 2020-01-11 15:08 | ULT ---
Paracentesis sonographic guided HISTORY: Liver failure. FINDINGS: After obtaining informed consent, sonographic survey shows a large amount of free fluid thr oughout the abdomen. Sterile technique, buffered local anesthesia, sonographic guidance, and a right lateral approach were used to carefully advance a 19-gauge Yueh needle and catheter into the free fluid. Catheter was left to drain a total volume of 3.5 L clear yellow liquid. Catheter was removed with min imal fluid remaining. Patient tolerated the procedure well. IMPRESSION : Technically successful sonographic guided paracentesis. Laboratory analysis is pending.
--- NOTE | 2020-01-11 15:18 | PRG ---
DATE OF SERVICE: 01/11/2020 SUBJECTIVE: Mr. Cesar remains sedated and intubated and on Levophed. Nursing staff is anticipating, trying to wean down the Levophed later today. He has not had any stool output since his colonoscopy a couple of days ago. Tube feeds have been ordered and set to start later today. He underwent paracentesis of over 3 L of fluid earlier today with studies pending. No other interval change in his condition. OBJECTIVE: VITAL SIGNS: Blood pressure is 95/75, pulse is 70, temperature is 97.8, 96% oxygen saturation on ventilator. GENERAL: Critically ill, sedated, and intubated. HEART: Regular rate and rhythm. LUNGS: Bilateral vent sounds. ABDOMEN: Only mild distention. The abdomen is soft. Bowel sounds are present. No masses or gross abnormalities on palpation. The patient is sedated. EXTREMITIES: No peripheral edema. LABORATORY STUDIES: WBC elevated to 20.6, hemoglobin stable at 9.0, platelets 113. INR is down to 1.3. Sodium 139, potassium 4.1, BUN 12, creatinine 1.18, glucose 201, calcium 6.5, total bilirubin is up to 2.0, alkaline phosphatase 116, AST is 61, ALT only 35, albumin 2.8, lipase 21. Viral hepatitis serologies are nonreactive. COVID PCR is negative. CMV DNA PCR is pending. Other labs pending include paracentesis fluid studies, cell count with differential, culture, fluid albumin, fluid total protein, histoplasma antigen, QuantiFERON, final blood cultures so far; initial blood cultures show no growth at 48 hours, initial urine culture shows no growth at 36 hours. Stool lactoferrin was elevated, but stool C difficile, Campylobacter, shiga toxin, and rapid parasite screen are all negative. Ileal and random colon biopsies have all came back unremarkable. ASSESSMENT AND PLAN: 1. Severe sepsis, unknown source. The patient remains on pressors, sedated and intubated. He remains on broad antibiotics as directed by Infectious Disease. All cultures were negative at this point with further studies pending as above. Notably, this does not appear to represent fulminant colitis given the endoscopic findings and colon and ileal biopsies were all normal. 2. Ascites. This is possibly secondary to alcoholic liver disease. He just had paracentesis of over 3 L. Awaiting fluid studies. 3. GI will continue to follow along. Job ID: [id number]
[2020-01-11 15:29] LABS: RBC Count-Automated (BF) 397 /cu.mm; WBC/Nucleated-Auto (BF) 329 uL
[2020-01-11 16:03] LABS: BF Color Yellow; Body Fluid Source Paracentesis Fluid; Clarity Hazy (Clear); Tube # EDTA
[2020-01-11 16:06] LABS: BF Segmented Neutrophils 49 %; Cell Count Non Hematic 40 %; Lymphocytes 11 %
[2020-01-11] MEDS: Micafungin 100 MG in Sodium Chloride 0.9% 100 ML IVPB SCH (19:03)
[2020-01-12] MEDS: HumaLOG 300 UNITS/3 ML VIAL SC PRN ×2 (00:49→17:15)
[2020-01-12] MEDS: Propofol 1,000 MG/100 ML VIAL IV PRN ×4 (00:54→23:19)
[2020-01-12] MEDS: MEROPENEM 1 GM/50 ML 1 GM in Premix Bag 1 BAG IVPB SCH ×3 (02:50→19:45)
[2020-01-12 07:29] LABS: ALT (SGPT) 35 U/L (8-55); AST (SGOT) 68 U/L (5-34); Albumin 2.6 g/dL (3.5-5.0); Alkaline Phosphatase 125 U/L (40-110); Anion Gap 14 mmol/L (10-20); BUN (Urea Nitrogen) 13 mg/dL (8.9-20.6); Calc. Creatinine Clearance 99 mL/min (70-130); Calcium 6.5 mg/dL (7.8-10.44); Carbon Dioxide 24 mmol/L (22-29); Chloride 105 mmol/L (98-107); Estimated GFR-MDRD 56; Glucose 163 mg/dL (70-105); Protein, Total 4.6 g/dL (6.0-8.3); Sodium 139 mmol/L (136-145)
--- NOTE | 2020-01-12 08:12 | PRG ---
DATE OF SERVICE: 01/12/2020 35 minutes of critical care time. This dictation was done while the joblocal system was down this morning. Therefore, all data may not be complete at this time. SUBJECTIVE: Mr. Cesar remains intubated on mechanical ventilation. He is very sedated and does not wake up very briskly today. OBJECTIVE: VITAL SIGNS: On exam, his last measured temperature is not currently recorded. His pulse is 82, blood pressure is 91/77, O2 sat is 99%, and respiratory rate is 15. HEENT: Unremarkable except for being intubated. NECK: No JVD. LUNGS: Diminished breath sounds in the bases. CARDIAC: S1 and S2 regular. ABDOMEN: Protuberant, at least 3 L of ascites fluid removed paracentesis. EXTREMITIES: No clubbing or cyanosis, but he has profound edema especially in his legs. LABORATORY DATA: White blood cell count 18.1, hematocrit 27.4, and platelet count 78. Sodium 139, potassium 4, chloride 105, CO2 of 24, BUN 13, creatinine 1.4, and glucose 163. Total bilirubin 2.0. ABG pending. Chest x-ray cannot be reviewed at this time. ASSESSMENT: 1. Acute on chronic liver failure, manifested by coagulopathy, hypoalbuminemia, ascites. 2. Acute respiratory failure, requiring mechanical ventilation. 3. Massive ascites. PLAN: 1. The patient continues on low-dose Levophed infusion for hypotension and what is probably related to his liver failure. 2. Continue meropenem, Mycamine, and vancomycin per ID. 3. Continue insulin coverage. 4. Hopefully begin to wean in the next day or two. Job ID: [id number]
[2020-01-12] MEDS ORDERED: Vancomycin HCl 750 MG in Sodium Chloride 0.9% 250 ML 250 ML IVPB SCH (09:00)
--- NOTE | 2020-01-12 09:19 | RAD ---
CHEST 1 VIEW PORTABLE: HISTORY: Pneumonia. COMPARISON: 01/11/2020. FINDINGS: Very poor inspiration. Evidence for small bilateral pleural effusions and some minimal retrocardiac opacity. No evidence for significant new process. IMPRESSION: Stable chest. Continue short-term followup. POS: RRE
[2020-01-12] MEDS: Pantoprazole 40 MG VIAL IVP SCH ×2 (09:51→21:01)
[2020-01-12] MEDS: Hydrocortisone Sod Succ/PF 100 mg/2 ml Vial IVP SCH ×2 (09:51→21:00)
[2020-01-12 09:59] LABS: Hemoglobin 8.6 g/dL (14.0-18.0); Mean Corpuscular HGB CONC 31.4 g/dL (32.0-36.0); Mean Corpuscular Hemoglobin 31.6 pg (27.0-31.0); Mean Platelet Volume 10.8 fL (7.4-10.4); Platelet Count 78 thou/uL (130-400); RBC Distribution Width 21.6 % (11.5-14.5); Red Blood Cell (RBC) Count 2.73 mill/uL (4.70-6.10); White Blood Cell (WBC) Count 18.1 thou/uL (4.8-10.8)
--- NOTE | 2020-01-12 10:08 | PDOC.HOSPP ---
- Subjective Encounter Date: 01/12/20 Encounter Time: 10:06 Subjective: Mr. Cesar was seen today in follow-up of septic shock. He is intubated and sedated. - Objective Vital Signs & Weight: Vital Signs (12 hours) Temp Pulse Resp BP Pulse Ox 01/12/20 08:00 15 99 01/12/20 02:14 79 93/69 01/12/20 02:00 14 01/12/20 00:06 74 93/71 01/12/20 00:00 97.6 F 12 01/11/20 22:30 78 85/68 L Weight Admit Weight 194 lb Weight 218 lb 0.595 oz Most Recent Monitor Data Heart Rate from ECG 78 NIBP 101/79 NIBP BP-Mean 87 Respiration from ECG 13 SpO2 98 I&O: 01/11/20 01/12/20 01/13/20 06:59 06:59 06:59 Intake Total 3302 2005 50 Output Total 604 3704 85 Balance 2698 -1699 -35 Result Diagrams: 01/12/20 03:50 01/12/20 03:30 Additional Labs: Accuchecks 01/12/20 01/11/20 01/11/20 00:33 20:44 15:40 POC Glucose 171 H 195 H 200 H 01/11/20 12:41 POC Glucose 201 H Hospitalist ROS - Medication Medications: Active Medications Generic Name Dose Route Start Last Admin Trade Name Freq PRN Reason Stop Dose Admin Hydrocortisone Sodium Succinate 50 mg 01/11/20 09:00 01/12/20 09:51 Solu-Cortef IVP 50 mg BID ABRAM Administration Vasopressin 20 unit/ 51 mls @ 0 mls/hr 01/08/20 18:00 01/09/20 06:46 Miscellaneous Medication 1 IV 51 mls each/ Sodium Chloride INF ABRAM Administration Protocol As Directed Norepinephrine Bitartrate 250 mls @ 0 mls/hr 01/08/20 20:15 01/11/20 19:03 Levophed IVPB 250 mls INF ABRAM Administration Protocol Titrate Fentanyl Citrate 2,000 mcg/ 100 mls @ 0 mls/hr 01/09/20 11:52 01/11/20 13:59 Sodium Chloride IV 02/08/20 11:52 100 mls INF ABRAM Administration Protocol Per Protocol Levofloxacin 750 mg/ Device 150 mls @ 100 mls/hr 01/09/20 18:00 01/11/20 17:38 IVPB 150 mls 1800 ABRAM Administration Micafungin Sodium 100 mg/ 100 mls @ 100 mls/hr 01/09/20 19:00 01/11/20 19:03 Sodium Chloride IVPB 100 mls 1900 ABRAM Administration Meropenem 1 gm/ Device 50 mls @ 200 mls/hr 01/09/20 20:00 01/12/20 02:50 IVPB 50 mls 0400,1200,2000 ABRAM Administration Thiamine HCl 100 mg/ Sodium 51 mls @ 102 mls/hr 01/12/20 09:00 01/12/20 09:51 Chloride IVPB 51 mls DAILY ABRAM Administration Insulin Human Lispro 0 units 01/09/20 08:33 01/12/20 00:49 Humalog SC 2 unit .MILD SLIDING SCALE PRN Administration Mild Correctional Scale Insulin Human NPH 20 unit 01/10/20 09:00 01/11/20 20:55 Humulin N SC 20 unit BID ABRAM Administration Pantoprazole Sodium 40 mg 01/09/20 09:00 01/12/20 09:51 Protonix IVP 40 mg Q12HR ABRAM Administration Propofol 1,000 mg 01/09/20 11:52 01/12/20 08:00 Diprivan IV 02/08/20 11:52 1,000 mg INF PRN Administration TO ACHIEVE GOAL RASS Protocol - Exam Eye: PERRL, anicteric sclera Heart: RRR, no murmur, no gallops, no rubs, normal peripheral pulses Respiratory: CTAB (+ coarse breath sounds) Gastrointestinal: soft, distended Extremities: no cyanosis, 2+ LE edema (+ diffuse edema) Hosp A/P (1) Septic shock Code(s): A41.9 - SEPSIS, UNSPECIFIED ORGANISM; R65.21 - SEVERE SEPSIS WITH SEPTIC SHOCK Status: Acute (2) Ulcerative colitis Code(s): K51.90 - ULCERATIVE COLITIS, UNSPECIFIED, WITHOUT COMPLICATIONS Status: Chronic (3) Acute kidney injury Code(s): N17.9 - ACUTE KIDNEY FAILURE, UNSPECIFIED Status: Acute (4) Hypokalemia Code(s): E87.6 - HYPOKALEMIA Status: Acute (5) Hypomagnesemia Code(s): E83.42 - HYPOMAGNESEMIA Status: Acute - Plan * Septic shock- continue IV fluids, and pressor. He continues on Levophed drip. * ID recommendations noted- continue Meropenem, Micafungin, Levaquin and Vancomycin * Stool studies are negative * Ascites- he had paracentesis yesterday with the removal of 3.5L of fluid * DAE- due to sepsis, and volume depletion-renal function has stabilized * Hypokalemia- improved * Hypomagnesemia- improved * Ulcerative Colitis- currently quiescent
[2020-01-12 10:14] LABS: Band 25 % (5-11); Lymphocytes 6 % (21-51); Manual Diff?? YES; Monocytes 4 % (0-10); Neutrophil 65 % (42-75)
[2020-01-12 10:15] LABS: Anisocytosis MODERATE=16-30 cells (100X) (0-5/hpf); Platelet Morphology Comment Appears Decreased
[2020-01-12 11:16] LABS: Bite Cells SLIGHT = 2-5 cells (100X) (0-1/hpf); MDiff Complete? YES; Polychromasia SLIGHT = 2-3 cells (100X) (0-2/hpf)
[2020-01-12] MEDS: Norepinephrine 8 MG/0.9% NS 250 ML IVPB SCH (12:05)
[2020-01-12] MEDS: NPH, Human Insulin Isophane 300 UNIT/3 ML VIAL SC SCH ×2 (13:01→21:05)
--- NOTE | 2020-01-12 14:32 | PRG ---
DATE OF SERVICE: 01/12/2020 SUBJECTIVE: The patient remains intubated and sedated. He is still on pressor support with Levophed. He is tolerating tube feeding with residual less than 10 mL. He had some diarrhea yesterday, but so far none today. PHYSICAL EXAMINATION: VITAL SIGNS: Temperature is 98.5, blood pressure 100/80, pulse rate 92. GENERAL: He is intubated and receiving tube feeding, sedated. CV: Normal S1 and S2. Regular rate and rhythm. CHEST: Clear breath sounds, mechanically ventilated. ABDOMEN: Very protuberant, no leakage from paracentesis site. Organomegaly are difficult to assess secondary to size. He does have diffuse active bowel sounds. EXTREMITIES: 1 to 2+ pedal edema. LABORATORY DATA: WBC is 18.1, hemoglobin 8.6, and platelet count of 78. Electrolytes within normal range. Creatinine 1.42, bilirubin 2.0, AST 68, ALT 35, and alkaline phosphatase 125. Peritoneal fluid showed 329 WBC and 397 RBC. Fluid protein less than 1.0. ASSESSMENT: 1. Severe sepsis of unknown etiology. No active ulcerative colitis on endoscopy and biopsy. The patient is on broad-spectrum antibiotics. 2. Ascites, likely from alcoholic liver disease. 3. Nutrition, started on tube feeding yesterday. 4. Respiratory failure on ventilator. RECOMMENDATION: 1. We will order a peritoneal fluid albumin to calculate SAAG. 2. Continue with tube feeding at the present rate. 3. May need additional paracentesis to facilitate weaning off vent. 4. No other recommendation from GI standpoint, we will follow. Job ID: [id number] [facility]
[2020-01-12 16:44] LABS: Actual Bicarbonate (HCO3a) 24.1 mEq/L (22-28); Base Excess (BEa) 0.8 mEq/L (-2.0 to +3.0); CO2 Tension 33.2 mmHg (35.0-45.0); Calcium, Ionized (arterial) 0.98 mmol/L (1.12-1.30); Carboxyhemoglobin (COHb) 0.3 gm% (0.0-3.0); Hemoglobin (Hb) 9.7 g/dL (14.0-18.0); O2 Tension (PaO2), arterial 98.2 mmHg (80.0-100.0); Potassium - ABG Lab 3.93 mmol/L (3.70-5.30); pH, Arterial 7.48 (7.35-7.45)
--- NOTE | 2020-01-12 17:37 | PRG ---
DATE OF SERVICE: 01/12/2020 SUBJECTIVE: He is more awake. He does not follow commands though. He is on O2 saturations of 99% with mechanical ventilator, FiO2 of 40. OBJECTIVE: VITAL SIGNS: Blood pressure 107/90, heart rate 80. SKIN: Changes are the same. LUNGS: Symmetric air entry. CARDIOVASCULAR: S1 and S2, regular rate. ABDOMEN: Moderately distended. EXTREMITIES: 1+ edema in the lower extremities. LABORATORY DATA: White cell count is 18.1, hemoglobin 8.6, platelets 78,000 with 25% bands and sodium 139, creatinine 1.42. Histoplasma antigen less than 0.5. CMV pending. He is on levofloxacin, meropenem, micafungin, and vancomycin. ASSESSMENT AND DISCUSSION: Longstanding ulcerative colitis, previously on TNF inhibitors among other suppressive medications. Appears to be in remission, now with sepsis. He also has a history of alcoholism and liver disease. Violaceous lesion in anterior chest concerning for Pseudomonas or a similar pathogen, fungal sepsis less likely. Staphylococcus aureus appears to be unlikely in view of the negative blood cultures for those pathogens. We will go ahead and discontinue vancomycin and start to deescalate therapy. Job ID: [id number]
[2020-01-12] MEDS: Micafungin 100 MG in Sodium Chloride 0.9% 100 ML IVPB SCH (19:45)
[2020-01-13] MEDS: HumaLOG 300 UNITS/3 ML VIAL SC PRN ×2 (01:22→04:22)
[2020-01-13] MEDS: MEROPENEM 1 GM/50 ML 1 GM in Premix Bag 1 BAG IVPB SCH ×3 (03:26→20:03)
[2020-01-13 04:02] LABS: ALT (SGPT) 44 U/L (8-55); AST (SGOT) 94 U/L (5-34); Albumin 2.4 g/dL (3.5-5.0); Alkaline Phosphatase 174 U/L (40-110); Anion Gap 14 mmol/L (10-20); BUN (Urea Nitrogen) 18 mg/dL (8.9-20.6); Bilirubin, Total 2.4 mg/dL (0.2-1.2); Calc. Creatinine Clearance 106 mL/min (70-130); Calcium 7.1 mg/dL (7.8-10.44); Carbon Dioxide 21 mmol/L (22-29); Chloride 106 mmol/L (98-107); Estimated GFR-MDRD 62; Globulin 2.2 g/dL (2.4-3.5); Glucose 173 mg/dL (70-105); Potassium 4.4 mmol/L (3.5-5.1); Protein, Total 4.6 g/dL (6.0-8.3); Sodium 137 mmol/L (136-145)
[2020-01-13 04:16] LABS: Band 5 % (5-11); Hemoglobin 9.2 g/dL (14.0-18.0); Lymphocytes 3 % (21-51); MDiff Complete? YES; Mean Corpuscular HGB CONC 31.1 g/dL (32.0-36.0); Mean Corpuscular Hemoglobin 31.7 pg (27.0-31.0); Mean Platelet Volume 11.8 fL (7.4-10.4); Monocytes 7 % (0-10); Myelocyte 1 % (0-0); Neutrophil 84 % (42-75); Platelet Count 52 thou/uL (130-400); Platelet Morphology Comment Appears Decreased; RBC Distribution Width 21.6 % (11.5-14.5); Red Blood Cell (RBC) Count 2.89 mill/uL (4.70-6.10); White Blood Cell (WBC) Count 12.9 thou/uL (4.8-10.8)
[2020-01-13] MEDS: Propofol 1,000 MG/100 ML VIAL IV PRN (06:25)
[2020-01-13 07:18] LABS: QuantiFERON-TB Gold Plus Indeterminate (Negative)
[2020-01-13 07:34] LABS: Actual Bicarbonate (HCO3a) 23.8 mEq/L (22-28); Base Excess (BEa) 0.4 mEq/L (-2.0 to +3.0); CO2 Tension 33.1 mmHg (35.0-45.0); Calcium, Ionized (arterial) 1.07 mmol/L (1.12-1.30); Carboxyhemoglobin (COHb) 0.1 gm% (0.0-3.0); Hemoglobin (Hb) 9.2 g/dL (14.0-18.0); O2 Tension (PaO2), arterial 86.5 mmHg (80.0-100.0); Potassium - ABG Lab 3.98 mmol/L (3.70-5.30); pH, Arterial 7.47 (7.35-7.45)
[2020-01-13 07:35] LABS: ALV-art Gradient 157.325 mmHg (0-20); Puncture Site RRA
--- NOTE | 2020-01-13 07:57 | RAD ---
PORTABLE CHEST: Date: 01/13/2020 PROVIDED CLINICAL HISTORY: Pneumonia. FINDINGS: Comparison with 01/12/2020. Significant interval change with respect to the prior examination is not apparent. IMPRESSION: As above. POS: OFF
--- NOTE | 2020-01-13 08:07 | PRG ---
DATE OF SERVICE: 01/13/2020 35 minutes of critical care time SUBJECTIVE: The patient is awake, alert, sedation has been weaned down. OBJECTIVE: VITAL SIGNS: Temperature 97.6, pulse 101, blood pressure 114/79, and O2 sat 100%. 24-hour intake 2502, output 758. HEENT: Unremarkable. NECK: No JVD. LUNGS: Fairly clear anteriorly. CARDIAC: S1 and S2 regular. ABDOMEN: Slightly protuberant. EXTREMITIES: Trace edema. LABORATORY DATA: Sodium 137, potassium 4.4, chloride 106, CO2 of 21, BUN 18, creatinine 1.3, and glucose 173. White blood cell count 12.9, hematocrit 29.5, and platelet count 52. ABG; pH 7.47, pCO2 of 33, pO2 of 86 on SIMV rate 12, tidal volume 500, PEEP 5, pressure of 10, and FiO2 40%. IMAGING STUDIES: X-ray looks much better in terms of diaphragmatic excursion. ASSESSMENT: 1. Acute respiratory failure, requiring mechanical ventilation. 2. Sepsis syndrome. 3. Ascites. 4. Cirrhosis of the liver. PLAN: 1. Wean steroid dose. 2. Spontaneous breathing trial with consideration of extubation if he passes. 3. Continue NPH insulin. 4. Vasopressors have been wean to off. Job ID: [id number]
[2020-01-13] MEDS: Hydrocortisone Sod Succ/PF 100 mg/2 ml Vial IVP SCH ×2 (09:01→20:03)
[2020-01-13] MEDS: Pantoprazole 40 MG VIAL IVP SCH ×2 (09:01→20:04)
[2020-01-13] MEDS: NPH, Human Insulin Isophane 300 UNIT/3 ML VIAL SC SCH ×2 (09:02→20:12)
--- NOTE | 2020-01-13 11:35 | PDOC.HOSPP ---
- Subjective Encounter Date: 01/13/20 Encounter Time: 09:40 Subjective: Patient seen in follow-up for sepsis. He was extubated earlier today. He denies any chest pain or shortness of breath. He appears groggy, could not complete review of systems. - Objective Vital Signs & Weight: Vital Signs (12 hours) Temp Pulse Resp Pulse Ox 01/13/20 08:00 98.1 F 01/13/20 07:55 96 15 95 01/13/20 07:38 17 100 01/13/20 07:11 86 01/13/20 06:00 12 01/13/20 04:00 97.6 F 16 01/13/20 02:39 76 01/13/20 02:00 12 01/13/20 00:39 72 01/13/20 00:00 97.5 F L 17 Weight Admit Weight 194 lb Weight 212 lb 4.882 oz Most Recent Monitor Data Heart Rate from ECG 94 NIBP 108/78 NIBP BP-Mean 91 Respiration from ECG 21 SpO2 96 I&O: 01/12/20 01/13/20 01/14/20 06:59 06:59 06:59 Intake Total 2004 2502.7 40 Output Total 3704 758 310 Balance -1699 1744.7 -270 Result Diagrams: 01/13/20 03:31 01/13/20 03:31 Additional Labs: Accuchecks 01/13/20 01/13/20 01/12/20 09:14 01:27 19:45 POC Glucose 114 H 166 H 142 H 01/12/20 01/12/20 01/12/20 16:18 12:28 09:50 POC Glucose 177 H 176 H 184 H I reviewed patient's labs and MAR EKG Reviewed by me: Yes (Telemetry: Normal sinus rhythm) Hospitalist ROS - Review of Systems ROS unobtainable: due to mental status - Medication Medications: Active Medications Generic Name Dose Route Start Last Admin Trade Name Freq PRN Reason Stop Dose Admin Hydrocortisone Sodium Succinate 25 mg 01/13/20 09:00 01/13/20 09:01 Hydrocortisone Sod Succ/Pf 100 Mg/2 Ml Vial IVP 25 mg BID ABRAM Administration Norepinephrine Bitartrate 250 mls @ 0 mls/hr 01/08/20 20:15 01/12/20 12:05 Levophed IVPB 250 mls INF ABRAM Administration Protocol Titrate Levofloxacin 750 mg/ Device 150 mls @ 100 mls/hr 01/09/20 18:00 01/12/20 17:26 IVPB 150 mls 1800 ABRAM Administration Micafungin Sodium 100 mg/ 100 mls @ 100 mls/hr 01/09/20 19:00 01/12/20 19:45 Sodium Chloride IVPB 100 mls 1900 ABRAM Administration Meropenem 1 gm/ Device 50 mls @ 200 mls/hr 01/09/20 20:00 01/13/20 11:18 IVPB 50 mls 0400,1200,2000 ABRAM Administration Thiamine HCl 100 mg/ Sodium 51 mls @ 102 mls/hr 01/12/20 09:00 01/13/20 10:37 Chloride IVPB 51 mls DAILY ABRAM Administration Insulin Human Lispro 0 units 01/09/20 08:33 01/13/20 04:22 Humalog SC 2 unit .MILD SLIDING SCALE PRN Administration Mild Correctional Scale Insulin Human NPH 20 unit 01/10/20 09:00 01/13/20 09:02 Humulin N SC 20 unit BID ABRAM Administration Pantoprazole Sodium 40 mg 01/09/20 09:00 01/13/20 09:01 Protonix IVP 40 mg Q12HR ABRAM Administration - Exam Eye: anicteric sclera ENT: moist mucosa Neck: supple Heart: RRR Respiratory: CTAB Gastrointestinal: soft, non-tender Extremities: no cyanosis Psychiatric: lethargic Hosp A/P - Plan (1) Sepsis Status: Acute (2) Ulcerative colitis Code(s): K51.90 - ULCERATIVE COLITIS, UNSPECIFIED, WITHOUT COMPLICATIONS Status: Chronic (3) Acute kidney injury Code(s): N17.9 - ACUTE KIDNEY FAILURE, UNSPECIFIED Status: Resolved (4) Hypokalemia Code(s): E87.6 - HYPOKALEMIA Status: Resolved (5) Hypomagnesemia Code(s): E83.42 - HYPOMAGNESEMIA Status: Resolved - Plan * Septic shock-patient is clinically improving, extubated earlier today. * continue Meropenem, Micafungin, Levaquin and Vancomycin. Follow cultures. * Stool studies are negative * Ascites- he had paracentesis 2 days ago with the removal of 3.5L of fluid * DAE- due to sepsis, creatinine improved to 1.29 today. * Hypokalemia-resolved * Hypomagnesemia-resolved * Ulcerative Colitis-no evidence of active flare on endoscopic studies.
[2020-01-13] MEDS ORDERED: Loperamide HCl 2 MG CAP PO PRN (13:47)
[2020-01-13] MEDS ORDERED: Loperamide HCl 2 MG CAP PO SCH (14:00)
--- NOTE | 2020-01-13 17:22 | PRG ---
DATE OF SERVICE: 01/13/2020 SUBJECTIVE: The patient has been extubated, awake, oriented. He is feeling better now. No dyspnea. No chest pain. No abdominal pain. He remembers having dyspnea right before he was admitted, did not have any recorded fever though. OBJECTIVE: VITAL SIGNS: Remains afebrile. Blood pressure 94/67, pulse 75, respirations 18. CHEST: Violaceous area in the right anterior chest, still there. Lungs sounds are clear. HEART: S1 and S2, regular rate. ABDOMEN: Soft, not distended or tender. No ascites. EXTREMITIES: Moves extremities on command. LABORATORY DATA: White cell count is down to 12.9, hemoglobin 9.2, platelets 52,000. INR is 1.3, PTT 34. Creatinine 1.29, bilirubin 2.4, AST 94, ALT 44, alkaline phosphatase 174, albumin 2.4. All the samples for microbiology evaluation have been negative including urine, blood cultures, stool sample, and the paracentesis sample as well. IMAGING STUDIES: Chest x-ray from this morning with diminished inspiratory effort with restricted lungs, the lung parenchyma seen and does not show any obvious infiltrates. ASSESSMENT AND DISCUSSION: Longstanding ulcerative colitis, previously on TNF inhibitors among other immunosuppressive medications in remission apparently with sepsis. He also has a history of alcoholism, liver disease, violaceous lesion in anterior chest, concern of Pseudomonas or similar pathogen, fungal sepsis less likely, Staphylococcus aureus is unlikely. The patient is currently on levofloxacin, meropenem. We will go ahead and discontinue micafungin. Job ID: [id number]
[2020-01-13] MEDS: Dextrose 50% Abboject 50 ML SYRINGE SLOW IVP PRN ×2 (20:02→23:55)
[2020-01-13 22:36] LABS: CMV DNA-PCR Test Positive < 200 IU/mL (Negative)
--- NOTE | 2020-01-14 00:21 | PRG ---
DATE OF SERVICE: 01/13/2020 SUBJECTIVE: Mr. Cesar was extubated and he is breathing fairly well on his own now. He has had some delirium and has no abdominal pain or nausea or vomiting. OBJECTIVE: VITAL SIGNS: Temperature is 97.6, blood pressure 112/89, and pulse 82. GENERAL: He is in no acute distress. He is oriented to his name and to the place, but not a year. LUNGS: Clear to auscultation bilaterally. HEART: Regular rate and rhythm without murmur. ABDOMEN: Soft, nontender, and mildly distended. Bowel sounds are present. EXTREMITIES: No lower extremity edema. LABORATORY DATA: White blood cell count 12.9, hemoglobin 9.2, platelets 52,000. INR 1.3. Bilirubin 2.4, AST 94, ALT 44, alkaline phosphatase 174, and albumin 2.4. IMPRESSION: 1. Sepsis and respiratory failure, currently doing better on broad-spectrum antibiotics. 2. Alcoholic liver disease and ascites and portal hypertension. Fluid studies were negative for SBP. 3. Inflammatory bowel disease on multiple immunosuppressive medications. This appears to have been in remission based on recent colonoscopy. Biopsies from just a few days ago showed normal colon mucosa. 4. He is having some degree of delirium or ICU psychosis or alcohol withdrawal. He is not tachycardic or hemodynamic changes with this. Overall, he appears to be resting comfortably when not actively stimulated. RECOMMENDATIONS: 1. He is on broad-spectrum antibiotics. 2. He has no asterixis to indicate acute hepatic encephalopathy. 3. His liver tests are trending up, which likely is related to the sepsis and some cholestasis related to that. We will continue to follow the trend of his liver tests. Job ID: [id number]
[2020-01-14] MEDS: Dextrose 50% Abboject 50 ML SYRINGE SLOW IVP PRN ×6 (04:34→23:15)
[2020-01-14] MEDS: MEROPENEM 1 GM/50 ML 1 GM in Premix Bag 1 BAG IVPB SCH ×3 (04:42→20:26)
[2020-01-14 07:36] LABS: ALT (SGPT) 54 U/L (8-55); AST (SGOT) 150 U/L (5-34); Albumin 2.2 g/dL (3.5-5.0); Alkaline Phosphatase 189 U/L (40-110); Anion Gap 14 mmol/L (10-20); BUN (Urea Nitrogen) 19 mg/dL (8.9-20.6); Calc. Creatinine Clearance 151 mL/min (70-130); Calcium 7.4 mg/dL (7.8-10.44); Carbon Dioxide 22 mmol/L (22-29); Chloride 106 mmol/L (98-107); Estimated GFR-MDRD Greater than 90; Globulin 2.6 g/dL (2.4-3.5); Glucose 55 mg/dL (70-105); Potassium 4.7 mmol/L (3.5-5.1); Protein, Total 4.8 g/dL (6.0-8.3); Sodium 137 mmol/L (136-145)
[2020-01-14 07:46] LABS: Hemoglobin 9.6 g/dL (14.0-18.0); Mean Corpuscular HGB CONC 30.6 g/dL (32.0-36.0); Mean Corpuscular Hemoglobin 31.5 pg (27.0-31.0); Mean Platelet Volume 12.5 fL (7.4-10.4); Platelet Count 45 thou/uL (130-400); RBC Distribution Width 21.3 % (11.5-14.5); Red Blood Cell (RBC) Count 3.06 mill/uL (4.70-6.10); White Blood Cell (WBC) Count 6.4 thou/uL (4.8-10.8)
--- NOTE | 2020-01-14 08:21 | RAD ---
EXAM: Single view of the chest HISTORY: Pneumonia COMPARISON: 01/13/2020 FINDINGS: Single view of the chest shows an enlarged but stable cardiomediastinal silhouette. The en dotracheal tube and NG tube have been removed. There may be a subtle right lower lobe infiltrate. Bilateral perihilar fullness is seen. No acute osseous abnormality. IMPRESSION: Stable exam status post extubation
[2020-01-14] MEDS: NPH, Human Insulin Isophane 300 UNIT/3 ML VIAL SC SCH (08:25)
[2020-01-14 08:27] LABS: Band 4 % (5-11); Eosinophils 1 % (0-10); Hypochromia SLIGHT = 6-15 cells (100X) (0-5/hpf); Lymphocytes 23 % (21-51); MDiff Complete? YES; Macrocytosis SLIGHT = 6-15 cells (100X) (0-5/hpf); Metamyelocyte 2 % (0-0); Monocytes 4 % (0-10); Myelocyte 2 % (0-0); Neutrophil 64 % (42-75); Ovalocytes SLIGHT = 2-5 cells (100X) (0-1/hpf); Platelet Morphology Comment Appears Decreased; Polychromasia SLIGHT = 2-3 cells (100X) (0-2/hpf); Target Cells SLIGHT = 2-5 cells (100X) (0-1/hpf)
[2020-01-14] MEDS: Pantoprazole 40 MG VIAL IVP SCH ×2 (08:40→20:25)
--- NOTE | 2020-01-14 08:40 | PRG ---
DATE OF SERVICE: 01/14/2020 SUBJECTIVE: Mr. Cesar is doing better. He is awake, alert, does not appear to be delirious. OBJECTIVE: VITAL SIGNS: Temperature 98.1, pulse 84, blood pressure 120/93, O2 saturation 98%. Intake 376 and output 1715. HEENT: Unremarkable. NECK: No JVD. CHEST: Clear anteriorly. CARDIAC: S1 and S2. Regular. ABDOMEN: Slightly distended. Bowel sounds diminished. EXTREMITIES: No edema. LABORATORY DATA: White blood cell count 6.4, hematocrit 31.4, and platelet count down to 45. Sodium 137, potassium 4.7, chloride 106, CO2 of 22, BUN 19, creatinine 0.9, glucose 55, AST 150, and ALT 54. ASSESSMENT: 1. Status post respiratory failure, requiring mechanical ventilation. 2. Ascites, better after paracentesis. 3. Sepsis syndrome. 4. Cirrhosis of the liver. PLAN: 1. I will go ahead and stop his NPH insulin because of the morning hypoglycemia. Once he starts eating, that will probably need to be restarted in some fashion. 2. I think we can safely stop the hydrocortisone. 3. Begin to eat once okay with Speech Therapy. 4. Continue IV thiamine and convert to oral once he is able to eat. 5. Transfer to intermediate care for one day and hopefully to the floor tomorrow. Job ID: [id number]
--- NOTE | 2020-01-14 14:52 | PRG ---
DATE OF SERVICE: 01/14/2020 SUBJECTIVE: Mr. Cesar has no acute complaints. No abdominal pain. He seems to be more appropriate currently than his mental status was yesterday. OBJECTIVE: VITAL SIGNS: Temperature 98.1, blood pressure 120/94, and pulse 102. GENERAL: He is in no acute distress. Alert and oriented x3. HEENT: Eyes have no scleral icterus. Oropharynx is clear without lesions. LUNGS: Clear to auscultation bilaterally. HEART: Tachycardic, S1 and S2 without murmur. ABDOMEN: Soft, nontender, and nondistended. Bowel sounds are present. EXTREMITIES: No lower extremity edema. LABORATORY DATA: White blood cell count 6.4, hemoglobin 9.6, and platelets 45,000. INR 1.3, bilirubin 2.0, AST 150, ALT 54, and alkaline phosphatase 189. IMPRESSION: 1. Sepsis and respiratory failure, now improved. 2. Alcoholic liver disease and ascites and portal hypertension. Fluid studies were negative for SBP. His liver tests have plateaued with bilirubin; however, the AST and alkaline phosphatase did trend up slightly. ALT remained stable. There is no immediate intervention needed for this. He likely has some degree of decompensation of his liver disease secondary to sepsis. 3. Inflammatory bowel disease, on multiple immunosuppressive medications. These are currently held. He is on mesalamine right now. He just had a recent colonoscopy, which was negative with normal biopsies. He is in remission from an IBD standpoint. RECOMMENDATIONS: 1. He is on broad-spectrum antibiotics. 2. Alcohol abstinence was advised. 3. Dr. Paige is covering the weekend. Job ID: [id number]
--- NOTE | 2020-01-14 16:36 | PDOC.HOSPP ---
- Subjective Encounter Date: 01/14/20 Encounter Time: 12:00 Subjective: Pt seen for followup re: hypoglycemic episodes. Answering some questions, denies chest pain or shortness of breath. - Objective Vital Signs & Weight: Vital Signs (12 hours) Temp BP BP Pulse Ox 01/14/20 15:17 96.4 F L 01/14/20 11:19 96.0 F L 01/14/20 10:37 138/103 H 125/87 01/14/20 07:45 99 01/14/20 07:00 98.1 F Weight Admit Weight 194 lb Weight 216 lb 0.848 oz Most Recent Monitor Data Heart Rate from ECG 88 NIBP 131/97 NIBP BP-Mean 108 Respiration from ECG 22 SpO2 100 I&O: 01/13/20 01/14/20 01/15/20 06:59 06:59 06:59 Intake Total 2502.7 376 303 Output Total 758 1715 100 Balance 1744.7 -1339 203 Result Diagrams: 01/14/20 06:48 01/14/20 06:48 Additional Labs: Accuchecks 01/14/20 01/14/20 01/14/20 16:15 15:50 13:26 POC Glucose 119 H 43 L* 84 01/14/20 01/14/20 01/14/20 12:35 09:44 09:13 POC Glucose 45 L* 103 H 45 L* 01/14/20 01/14/20 01/14/20 05:51 04:32 04:32 POC Glucose 75 42 L* 41 L* 01/14/20 01/13/20 01/13/20 01:06 23:56 21:36 POC Glucose 101 H 52 L* 88 01/13/20 20:06 POC Glucose 57 L* Labs and MARs reviewed by me EKG Reviewed by me: Yes (Tele: NSR) Hospitalist ROS - Review of Systems Cardiovascular: denies: chest pain, palpitations, orthopnea, paroxysmal noc. d yspnea, edema, light headedness Gastrointestinal: denies: nausea, vomiting, abdominal pain, diarrhea, constipation, melena, hematochezia - Medication Medications: Active Medications Generic Name Dose Route Start Last Admin Trade Name Freq PRN Reason Stop Dose Admin Dextrose/Water 25 gm 01/09/20 08:33 01/14/20 15:46 Dextrose 50% SLOW IVP 25 gm PRN PRN Administration Hypoglycemia Glucagon 1 mg 01/09/20 08:33 01/13/20 23:56 Glucagon IM 1 mg PRN PRN Administration Hypoglycemia Dextrose/Water 1,000 mls @ 0 mls/hr 01/09/20 08:33 01/14/20 04:48 D5w IV 1,000 mls .Q0M PRN Administration Hypoglycemia As Directed Levofloxacin 750 mg/ Device 150 mls @ 100 mls/hr 01/09/20 18:00 01/13/20 17:14 IVPB 150 mls 1800 ABRAM Administration Meropenem 1 gm/ Device 50 mls @ 200 mls/hr 01/09/20 20:00 01/14/20 12:31 IVPB 50 mls 0400,1200,2000 ABRAM Administration Thiamine HCl 100 mg/ Sodium 51 mls @ 102 mls/hr 01/12/20 09:00 01/14/20 08:45 Chloride IVPB 51 mls DAILY ABRAM Administration Insulin Human Lispro 0 units 01/09/20 08:33 01/13/20 04:22 Humalog SC 2 unit .MILD SLIDING SCALE PRN Administration Mild Correctional Scale Pantoprazole Sodium 40 mg 01/09/20 09:00 01/14/20 08:40 Protonix IVP 40 mg Q12HR ABRAM Administration - Exam General Appearance: awake alert Eye: anicteric sclera ENT: normocephalic atraumatic Neck: supple Heart: RRR Respiratory: CTAB Gastrointestinal: soft, non-tender Extremities: no cyanosis Musculoskeletal: normal tone Psychiatric: normal affect, normal behavior Hosp A/P - Plan (1) Hypoglycemia Status: Acute (2) Ulcerative colitis Code(s): K51.90 - ULCERATIVE COLITIS, UNSPECIFIED, WITHOUT COMPLICATIONS Status: Chronic (3) Acute kidney injury Code(s): N17.9 - ACUTE KIDNEY FAILURE, UNSPECIFIED Status: Resolved (4) Hypokalemia Code(s): E87.6 - HYPOKALEMIA Status: Resolved (5) Hypomagnesemia Code(s): E83.42 - HYPOMAGNESEMIA Status: Resolved - Plan * patient is clinically improving, extubated yesterday and transfered to [facility] today * continue Meropenem and Levaquin. Vancomycin and micafungin discontinued. * Stool studies are negative * Ascites- s/p paracentesis - no evidence of SBP * DAE- due to sepsis, resolved * Hypokalemia-resolved * Hypomagnesemia-resolved * Ulcerative Colitis-no evidence of active flare on endoscopic studies. * Hypoglycemic episodes - continue D5W per protocol.
[2020-01-14] MEDS: Dextrose 10% in Water 1,000 ML IV SCH (22:11)
[2020-01-15] MEDS: Dextrose 50% Abboject 50 ML SYRINGE SLOW IVP PRN (01:33)
[2020-01-15 04:05] LABS: ALT (SGPT) 64 U/L (8-55); AST (SGOT) 144 U/L (5-34); Albumin 2.3 g/dL (3.5-5.0); Alkaline Phosphatase 190 U/L (40-110); Anion Gap 14 mmol/L (10-20); BUN (Urea Nitrogen) 17 mg/dL (8.9-20.6); Bilirubin, Total 1.7 mg/dL (0.2-1.2); Calc. Creatinine Clearance 174 mL/min (70-130); Calcium 7.5 mg/dL (7.8-10.44); Carbon Dioxide 23 mmol/L (22-29); Chloride 106 mmol/L (98-107); Estimated GFR-MDRD Greater than 90; Globulin 2.2 g/dL (2.4-3.5); Glucose 74 mg/dL (70-105); Potassium 4.2 mmol/L (3.5-5.1); Protein, Total 4.5 g/dL (6.0-8.3); Sodium 139 mmol/L (136-145)
[2020-01-15 04:55] LABS: Band 9 % (5-11); Eosinophils 4 % (0-10); Lymphocytes 24 % (21-51); MDiff Complete? YES; Mean Corpuscular HGB CONC 30.8 g/dL (32.0-36.0); Mean Corpuscular Hemoglobin 31.3 pg (27.0-31.0); Mean Platelet Volume 12.3 fL (7.4-10.4); Monocytes 8 % (0-10); Neutrophil 55 % (42-75); Nucleated RBC 1 % (0); Platelet Count 44 thou/uL (130-400); Platelet Morphology Comment Appears Decreased; RBC Distribution Width 21.2 % (11.5-14.5); White Blood Cell (WBC) Count 5.1 thou/uL (4.8-10.8)
[2020-01-15] MEDS: MEROPENEM 1 GM/50 ML 1 GM in Premix Bag 1 BAG IVPB SCH ×3 (05:16→20:47)
[2020-01-15] MEDS: Dextrose 10% in Water 1,000 ML IV SCH ×2 (07:45→16:32)
[2020-01-15] MEDS ORDERED: Albumin 25% 25 GM/100 ML BOT IVPB SCH (08:19)
[2020-01-15] MEDS ORDERED: Furosemide 40 MG/4 ML VIAL SLOW IVP SCH (08:30)
[2020-01-15] MEDS: Pantoprazole 40 MG VIAL IVP SCH ×2 (09:55→20:46)
--- NOTE | 2020-01-15 12:53 | EKG ---
Test Reason : Blood Pressure : / mmHG Vent. Rate : 134 BPM Atrial Rate : 134 BPM P-R Int : 096 ms QRS Dur : 070 ms QT Int : 386 ms P-R-T Axes : -21 021 059 degrees QTc Int : 576 ms Sinus tachycardia with short NM Cannot rule out Anterior infarct , age undetermined T wave abnormality, consider lateral ischemia Abnormal ECG Confirmed by JOSI SUGGS ([id number]), copy editor FERNIE ZAMUDIO ([id number]) on 01/15/2020 12:52:41 PM Referred By: Confirmed By:JOSI Gore
--- NOTE | 2020-01-15 13:08 | PRG ---
DATE OF SERVICE: 01/15/2020 SUBJECTIVE: Mr. Cesar was seen again by Speech and did well enough that his diet has been advanced to pureed and mechanical soft. The patient has self discontinued his NG tube. He denies pain. He has poor insight into his illness, stating that his swelling began just within the past 24 hours. He does not have recollection of large volume paracentesis done just recently. He is aware of the critical need for alcohol abstinence. He denies any nausea or vomiting, fevers or chills. PHYSICAL EXAMINATION: VITAL SIGNS: Blood pressure is ranging from 100/70 to 117/88, heart rate is 106, saturation is 100, on nasal oxygen. GENERAL: He is awake and alert, anicteric. He has poor insight and appears older than his stated age of 39. HEENT: Shows no icterus. Oropharynx shows moist membranes. NECK: Shows no adenopathy. He has no JVD. LUNGS: Show coarse bilateral rhonchi and he has a rattly cough, but produces no sputum. HEART: Regular rate and rhythm. ABDOMEN: Soft, mildly distended. He certainly does not have tense ascites today and I do not see him immediately after paracentesis for comparison. He has pitting anasarca to the abdominal wall. LABORATORY DATA: White count is 5100, hemoglobin is 10 with hematocrit of 32.6, and platelet count of 44,000. Electrolytes notable for BUN of 17 and creatinine of 0.8. His liver tests are elevated including AST of 144, ALT of 64, and bilirubin of 1.7. His blood sugars have been low, ranging from 43 to 83. I requested a cortisol level because of his hypoglycemia and it is 12.9, which excludes adrenal insufficiency. His albumin is low at 2.3. IMPRESSION: 1. Alcohol history, beginning at age 13 and reported to be as much as 15 or more ounces of vodka daily. He appears to have significant alcoholic cirrhosis with hypoalbuminemia and thrombocytopenia secondary to portal hypertension. He has had large volume paracentesis for his ascites. I am certainly in agreement with the need for alcohol cessation. 2. Respiratory distress, resolved. Oxygen status is good. He has now passed a swallowing study and we can advance his diet. 3. Anasarca secondary to above. PLAN: He is encouraged to be out of bed as tolerated. He is receiving albumin IV plus Lasix and attempted diuresis. I have discussed with him the critical need for alcohol abstinence. He can be out of bed and advance activity as tolerated. There is no evidence that he needs another paracentesis today. Job ID: [id number]
--- NOTE | 2020-01-15 14:35 | RAD ---
EXAM: CHEST ONE VIEW: 01/15/20 HISTORY: NG tube evaluation, shortness of breath. COMPARISON: 01/15/20. FINDINGS: An NG tube tip is noted extending down into the stomach. Poor inspiration with moderate pleural and p arenchymal changes in the right base and probable small left pleural effusion. IMPRESSION: Pleural and parenchymal opacity changes right base. NG tube in place. POS: OFF
--- NOTE | 2020-01-15 14:52 | RAD ---
ONE VIEW CHEST: 01/15/20 HISTORY: Shortness of breath. COMPARISON: 01/14/20. FINDINGS: This examination is obtained with shallow depth of inspiration which accentuates the cardiac silhouet te and bronchovascular markings. However, the cardiac silhouette does appear mildly enlarged. There i s suggestion of a small right pleural effusion with ground glass increased density at the right lung base which may represent either volume loss or pneumonia. Left lung appears clear. No other interval change. IMPRESSION: Small right pleural effusion with ground glass appearing opacity at the right lung base which may be related to associated atelectasis. However, pneumonia right lung base is not entirely excluded. Follo w-up to resolution is recommended. POS: DAVID
--- NOTE | 2020-01-15 17:55 | PDOC.HOSPP ---
- Subjective Encounter Date: 01/15/20 Encounter Time: 13:00 Subjective: Patient seen for follow-up regarding hypoglycemia. He is more alert today, answering questions. - Objective Vital Signs & Weight: Vital Signs (12 hours) Temp Pulse Ox 01/15/20 15:05 96.4 F L 01/15/20 11:10 96.8 F L 01/15/20 08:00 100 01/15/20 07:14 100 01/15/20 07:06 97.3 F L Weight Admit Weight 194 lb 10.69 oz Weight 218 lb Most Recent Monitor Data Heart Rate from ECG 92 NIBP 96/72 NIBP BP-Mean 80 Respiration from ECG 23 SpO2 100 I&O: 01/14/20 01/15/20 01/16/20 06:59 06:59 06:59 Intake Total 376 1303 1400 Output Total 1715 700 700 Balance -1339 603 700 Result Diagrams: 01/15/20 03:20 01/15/20 03:20 Additional Labs: Accuchecks 01/15/20 01/15/20 01/15/20 16:13 14:06 12:30 POC Glucose 115 H 118 H 92 01/15/20 01/15/20 01/15/20 10:01 08:24 03:31 POC Glucose 83 86 66 L 01/15/20 01/14/20 01/14/20 01:33 22:01 19:14 POC Glucose 69 L 84 116 H EKG Reviewed by me: Yes Hospitalist ROS - Review of Systems Respiratory: denies: cough, dry, shortness of breath, hemoptysis, SOB with excertion, pleuritic pain, sputum, wheezing Cardiovascular: reports: edema, other. denies: chest pain, palpitations, orthopnea, paroxysmal noc. dyspnea, light headedness Gastrointestinal: denies: nausea, vomiting, abdominal pain, diarrhea, constipation, melena, hematochezia - Medication Medications: Active Medications Generic Name Dose Route Start Last Admin Trade Name Freq PRN Reason Stop Dose Admin Dextrose/Water 25 gm 01/09/20 08:33 01/15/20 01:33 Dextrose 50% SLOW IVP 25 gm PRN PRN Administration Hypoglycemia Glucagon 1 mg 01/09/20 08:33 01/14/20 18:20 Glucagon IM 1 mg PRN PRN Administration Hypoglycemia Dextrose/Water 1,000 mls @ 0 mls/hr 01/09/20 08:33 01/14/20 04:48 D5w IV 1,000 mls .Q0M PRN Administration Hypoglycemia As Directed Levofloxacin 750 mg/ Device 150 mls @ 100 mls/hr 01/09/20 18:00 01/15/20 16:31 IVPB 150 mls 1800 ABRAM Administration Meropenem 1 gm/ Device 50 mls @ 200 mls/hr 01/09/20 20:00 01/15/20 13:08 IVPB 50 mls 0400,1200,2000 ABRAM Administration Thiamine HCl 100 mg/ Sodium 51 mls @ 102 mls/hr 01/12/20 09:00 01/15/20 09:55 Chloride IVPB 51 mls DAILY ABRAM Administration Dextrose/Water 1,000 mls @ 100 mls/hr 01/14/20 21:45 01/15/20 16:32 Dextrose 10% In Water IV 1,000 mls .Q10H ABRAM Administration Insulin Human Lispro 0 units 01/09/20 08:33 01/13/20 04:22 Humalog SC 2 unit .MILD SLIDING SCALE PRN Administration Mild Correctional Scale Pantoprazole Sodium 40 mg 01/09/20 09:00 01/15/20 09:55 Protonix IVP 40 mg Q12HR ABRAM Administration - Exam General Appearance: awake alert Eye: anicteric sclera ENT: moist mucosa Neck: supple Heart: RRR Respiratory: CTAB Gastrointestinal: soft, non-tender Extremities: 2+ LE edema Musculoskeletal: no muscle wasting Psychiatric: normal affect, oriented to person Hosp A/P - Plan -Assessment (1) Hypoglycemia Status: Acute (2) Ulcerative colitis Code(s): K51.90 - ULCERATIVE COLITIS, UNSPECIFIED, WITHOUT COMPLICATIONS Status: Chronic (3) history of alcohol abuse Status: Chronic (3) Acute kidney injury Code(s): N17.9 - ACUTE KIDNEY FAILURE, UNSPECIFIED Status: Resolved (4) Hypokalemia Code(s): E87.6 - HYPOKALEMIA Status: Resolved (5) Hypomagnesemia Code(s): E83.42 - HYPOMAGNESEMIA Status: Resolved - Plan * Hypoglycemia improved today after initiation of diet. * Patient is on meropenem and Levaquin. * Administer IV albumin and furosemide for edema. * Stool studies are negative * Ascites- s/p paracentesis - no evidence of SBP * DAE- due to sepsis, resolved * Hypokalemia-resolved * Hypomagnesemia-resolved * Ulcerative Colitis-no evidence of active flare on endoscopic studies. * Continue thiamine
--- NOTE | 2020-01-15 20:08 | PRG ---
DATE OF SERVICE: 01/15/2020 SUBJECTIVE: This is a 39-year-old male with liver disease, cirrhosis, and possibly mild hepatic encephalopathy. He also has had sepsis and is on broad-spectrum antibiotic therapy. He is making slow but steady progress. He has history of ulcerative colitis and most recent colonoscopy showed no active colitis. Apparently, he was on immunosuppressants and biological before. Right now, he is only on mesalamine. blood sugar has been dropping down last night to as low as 40 mg. Started on glucagon. He also received IV dextrose. Today, he appears awake and communicative. He knows where he is at and he tells me the lady in the room is his mother. However, he is somewhat weak and lethargic. The nurses tell me that he gets a little bit confused off and on. The patient probably had 6 bowel movements today. However, the nurse tells me he had no stool. No abdominal pain. No nausea or vomiting. PHYSICAL EXAMINATION: GENERAL: He is awake, but appears to be slightly lethargic. VITAL SIGNS: Pulse is 109, blood pressure is 95/76. CARDIOVASCULAR SYSTEM: Normal heart sounds. LUNGS: Clear to auscultation. ABDOMEN: Soft and nondistended. Abdomen is nontender. CLINICAL IMPRESSION: 1. Sepsis, on broad-spectrum antibiotic. 2. Chronic liver disease. 3. Ulcerative colitis. 4. Mild encephalopathy. RECOMMENDATIONS: Continue IV antibiotics. Increase p.o. intake. Order serum ammonia level for tomorrow. May consider starting the patient on rifaximin 550 mg p.o. twice a day for possible encephalopathy. Job ID: [id number]
[2020-01-16] MEDS: MEROPENEM 1 GM/50 ML 1 GM in Premix Bag 1 BAG IVPB SCH ×3 (02:40→20:14)
[2020-01-16] MEDS: Dextrose 10% in Water 1,000 ML IV SCH ×3 (02:40→20:15)
[2020-01-16 03:35] LABS: #Eosinphils 0.1 thou/uL (0.0-0.7); #Lymphocytes 0.9 thou/uL (1.20-3.40); #Monocytes 0.4 thou/uL (0.11-0.59); %Basophils 0.8 % (0.0-1.0); %Eosinophils 2.4 % (0.0-10.0); %Lymphocytes 16.2 % (21.0-51.0); %Monocytes 7.4 % (0.0-10.0); %Neutrophils 73.2 % (42.0-75.0); Hemoglobin 9.1 g/dL (14.0-18.0); Mean Corpuscular HGB CONC 31.1 g/dL (32.0-36.0); Mean Corpuscular Hemoglobin 31.1 pg (27.0-31.0); Mean Platelet Volume 12.4 fL (7.4-10.4); Platelet Count 53 thou/uL (130-400); RBC Distribution Width 21.5 % (11.5-14.5); Red Blood Cell (RBC) Count 2.92 mill/uL (4.70-6.10); White Blood Cell (WBC) Count 5.5 thou/uL (4.8-10.8)
[2020-01-16 03:59] LABS: ALT (SGPT) 56 U/L (8-55); AST (SGOT) 93 U/L (5-34); Albumin 2.4 g/dL (3.5-5.0); Alkaline Phosphatase 178 U/L (40-110); Anion Gap 12 mmol/L (10-20); BUN (Urea Nitrogen) 14 mg/dL (8.9-20.6); Bilirubin, Total 1.8 mg/dL (0.2-1.2); Calc. Creatinine Clearance 177 mL/min (70-130); Calcium 7.5 mg/dL (7.8-10.44); Carbon Dioxide 27 mmol/L (22-29); Chloride 102 mmol/L (98-107); Estimated GFR-MDRD Greater than 90; Globulin 1.9 g/dL (2.4-3.5); Glucose 107 mg/dL (70-105); Potassium 3.4 mmol/L (3.5-5.1); Protein, Total 4.3 g/dL (6.0-8.3); Sodium 138 mmol/L (136-145)
[2020-01-16] MEDS ORDERED: Potassium Chloride 20 MEQ TAB PO SCH (05:00)
[2020-01-16] MEDS: Pantoprazole 40 MG VIAL IVP SCH ×2 (09:43→20:15)
[2020-01-16 09:48] LABS: Potassium 3.6 mmol/L (3.5-5.1)
--- NOTE | 2020-01-16 12:22 | PDOC.HOSPP ---
- Subjective Encounter Date: 01/16/20 Encounter Time: 10:00 Subjective: Pt seen for followup re: acute metabolic encephalopathy States he feels better. Tolerating diet. - Objective Vital Signs & Weight: Vital Signs (12 hours) Temp BP BP 01/16/20 11:41 97.6 F 01/16/20 10:09 122/94 H 115/89 01/16/20 07:54 97.4 F L Weight Admit Weight 194 lb 10.69 oz Weight 218 lb Most Recent Monitor Data Heart Rate from ECG 91 NIBP 115/89 NIBP BP-Mean 97 Respiration from ECG 26 SpO2 100 I&O: 01/15/20 01/16/20 01/17/20 06:59 06:59 06:59 Intake Total 1303 2600 1640 Output Total 700 2400 Balance 156 428 5713 Result Diagrams: 01/16/20 03:14 01/16/20 08:57 Additional Labs: Accuchecks 01/16/20 01/16/20 01/16/20 10:08 08:10 06:34 POC Glucose 100 107 H 118 H 01/16/20 01/16/20 01/15/20 05:05 02:28 23:59 POC Glucose 113 H 107 H 108 H 01/15/20 01/15/20 01/15/20 18:10 16:13 14:06 POC Glucose 102 H 115 H 118 H 01/15/20 12:30 POC Glucose 92 Labs and MARs reviewed by me EKG Reviewed by me: Yes (Tele: NSR) Hospitalist ROS - Review of Systems Cardiovascular: denies: chest pain, palpitations, orthopnea, paroxysmal noc. dyspnea, edema, light headedness Gastrointestinal: denies: nausea, vomiting, abdominal pain, diarrhea, constipation, melena, hematochezia - Medication Medications: Active Medications Generic Name Dose Route Start Last Admin Trade Name Freq PRN Reason Stop Dose Admin Dextrose/Water 25 gm 01/09/20 08:33 01/15/20 01:33 Dextrose 50% SLOW IVP 25 gm PRN PRN Administration Hypoglycemia Glucagon 1 mg 01/09/20 08:33 01/14/20 18:20 Glucagon IM 1 mg PRN PRN Administration Hypoglycemia Dextrose/Water 1,000 mls @ 0 mls/hr 01/09/20 08:33 01/14/20 04:48 D5w IV 1,000 mls .Q0M PRN Administration Hypoglycemia As Directed Levofloxacin 750 mg/ Device 150 mls @ 100 mls/hr 01/09/20 18:00 01/15/20 16:31 IVPB 150 mls 1800 ABRAM Administration Meropenem 1 gm/ Device 50 mls @ 200 mls/hr 01/09/20 20:00 01/16/20 02:40 IVPB 50 mls 0400,1200,2000 ABRAM Administration Thiamine HCl 100 mg/ Sodium 51 mls @ 102 mls/hr 01/12/20 09:00 01/16/20 09:43 Chloride IVPB 51 mls DAILY ABRAM Administration Dextrose/Water 1,000 mls @ 100 mls/hr 01/14/20 21:45 01/16/20 10:40 Dextrose 10% In Water IV 1,000 mls .Q10H ABRAM Administration Insulin Human Lispro 0 units 01/09/20 08:33 01/13/20 04:22 Humalog SC 2 unit .MILD SLIDING SCALE PRN Administration Mild Correctional Scale Pantoprazole Sodium 40 mg 01/09/20 09:00 01/16/20 09:43 Protonix IVP 40 mg Q12HR ABRAM Administration - Exam General Appearance: awake alert Eye: anicteric sclera ENT: moist mucosa Neck: supple Heart: RRR Respiratory: CTAB Gastrointestinal: soft, non-tender Skin: no rashes Musculoskeletal: no muscle wasting Psychiatric: normal affect, normal behavior Hosp A/P - Plan -Assessment (1) Acute metabolic encephalopathy Status: Acute (2) Ulcerative colitis Code(s): K51.90 - ULCERATIVE COLITIS, UNSPECIFIED, WITHOUT COMPLICATIONS Status: Chronic (3) history of alcohol abuse Status: Chronic (3) Acute kidney injury Code(s): N17.9 - ACUTE KIDNEY FAILURE, UNSPECIFIED Status: Resolved (4) Hypokalemia Code(s): E87.6 - HYPOKALEMIA Status: Resolved (5) Hypomagnesemia Code(s): E83.42 - HYPOMAGNESEMIA Status: Resolved - Plan * Acute metabolic encephalopathy improving. ? secondary to sepsis. * Hypoglycemia resolved * Continue meropenem and Levaquin. * Stool studies are negative * Ascites- s/p paracentesis - no evidence of SBP * DAE- due to sepsis, resolved * Hypokalemia-resolved * Hypomagnesemia-resolved * Ulcerative Colitis-no evidence of active flare on endoscopic studies. * Continue thiamine
--- NOTE | 2020-01-16 12:24 | PRG ---
DATE OF SERVICE: 01/16/2020 SUBJECTIVE: Mr. Cesar is a little bit better today. With help, he was able to stand for approximately 5 minutes and took several steps. He was not able to stand independent of assistance. His blood sugar has been above 100, although on continuous D10 and initiation of a diet. We will try to reduce the frequency of glucometers from every 2 hours to every 4 hours. He has not had any fevers or chills and he denies any pain. PHYSICAL EXAMINATION: VITAL SIGNS: Blood pressure is 115/89, heart rate is 91, respiratory rate 26, pulse ox 100%. GENERAL: He is certainly in no distress. HEENT: No JVD. He has no icterus. LUNGS: Fairly clear. HEART: Regular rate and rhythm. There is no murmur. ABDOMEN: Soft, but distended. He may have some ascites, but is not tense that he has 3 to 4+ anasarca to the thighs and lower abdomen. LABORATORY DATA: White count 5500, hemoglobin is 9.1, and platelet count 53,000. Chemistry panel includes sodium 138, potassium 3.4, chloride 102, CO2 is 27, BUN 14, creatinine 0.8. Liver tests were elevated but stable. His cultures have been negative. IMPRESSION: 1. Alcoholic liver disease with ascites, cirrhosis, portal hypertension, thrombocytopenia. He is status post paracentesis. 2. Hypoglycemia with prolonged effect to insulin given earlier this admission. He is still on load dose D10. 3. Global weakness. PLAN: At this point, we will continue current therapies and try to get him up. Hopefully we can advance his diet. We plan to decrease his glucometers and ideally get him off D10, soon he should be able to move to the floor. The critical need for permanent alcohol cessation is emphasized. Job ID: [id number]
--- NOTE | 2020-01-16 18:28 | PRG ---
DATE OF SERVICE: 01/16/2020 HISTORY: This is a 39-year-old male with liver cirrhosis, sepsis, and ulcerative colitis. His colon appears to be in remission as his colonoscopy showed active colitis. The patient also has sepsis and is on antibiotic therapy. He is tolerating his diet. He has no diarrhea today today. However, he remains confused off and on. oriented to time, place, and person. Today, he is somewhat unable to answer what day, month, or year, etc. His serum ammonia level came back normal at 31 today. PHYSICAL EXAMINATION: GENERAL: He is awake, but somewhat slowly react and mildly lethargic. He is in no distress. VITAL SIGNS: Afebrile, pulse is 86, and blood pressure 112/72. CARDIOVASCULAR: Normal heart sounds. LUNGS: Clear to auscultation. ABDOMEN: Distended, but soft to palpate. Abdomen is nontender. No organomegaly. LABORATORY DATA: From today WBC 5500, hemoglobin 9.1, hematocrit 29.3, platelet count 53,000, polymorphs 73, and bands 16%. CLINICAL IMPRESSION: 1. Sepsis on broad-spectrum antibiotic therapy. 2. Ulcerative colitis, in remission. 3. Chronic liver disease. 4. Intermittent confusion with normal serum ammonia level. PLAN: 1. Continue antibiotics. 2. 3. Followup labs. Job ID: [id number]
[2020-01-17] MEDS: Dextrose 10% in Water 1,000 ML IV SCH ×2 (04:09→19:52)
[2020-01-17] MEDS: MEROPENEM 1 GM/50 ML 1 GM in Premix Bag 1 BAG IVPB SCH ×3 (04:09→19:47)
[2020-01-17 04:40] LABS: Hemoglobin 9.4 g/dL (14.0-18.0); Mean Corpuscular HGB CONC 32.1 g/dL (32.0-36.0); Mean Corpuscular Hemoglobin 31.2 pg (27.0-31.0); Mean Corpuscular Volume 97.4 fL (78.0-98.0); Mean Platelet Volume 14.1 fL (7.4-10.4); Platelet Count 7 thou/uL (130-400); RBC Distribution Width 25.7 % (11.5-14.5); Red Blood Cell (RBC) Count 3.01 mill/uL (4.70-6.10); White Blood Cell (WBC) Count 6.6 thou/uL (4.8-10.8)
[2020-01-17 05:04] LABS: #Eosinphils 0.1 thou/uL (0.0-0.7); #Lymphocytes 0.9 thou/uL (1.20-3.40); #Monocytes 0.4 thou/uL (0.11-0.59); #Neutrophils 5.3 thou/uL (1.40-6.50); %Eosinophils 1.4 % (0.0-10.0); %Monocytes 6.2 % (0.0-10.0); %Neutrophils 79.5 % (42.0-75.0); Anisocytosis SLIGHT = 6-15 cells (100X) (0-5/hpf); MDiff Complete? YES; Platelet Morphology Comment Appears Decreased
[2020-01-17 06:00] LABS: #Eosinphils 0.1 thou/uL (0.0-0.7); #Monocytes 0.5 thou/uL (0.11-0.59); %Eosinophils 1.1 % (0.0-10.0); %Lymphocytes 13.5 % (21.0-51.0); %Monocytes 6.2 % (0.0-10.0); %Neutrophils 79.2 % (42.0-75.0); Hemoglobin 9.1 g/dL (14.0-18.0); Mean Corpuscular HGB CONC 31.3 g/dL (32.0-36.0); Mean Corpuscular Volume 99.1 fL (78.0-98.0); Mean Platelet Volume 12.2 fL (7.4-10.4); Platelet Count 65 thou/uL (130-400); RBC Distribution Width 21.4 % (11.5-14.5); Red Blood Cell (RBC) Count 2.93 mill/uL (4.70-6.10); White Blood Cell (WBC) Count 7.6 thou/uL (4.8-10.8)
[2020-01-17 06:11] LABS: ALT (SGPT) 48 U/L (8-55); AST (SGOT) 74 U/L (5-34); Albumin 2.3 g/dL (3.5-5.0); Alkaline Phosphatase 160 U/L (40-110); Anion Gap 11 mmol/L (10-20); BUN (Urea Nitrogen) 11 mg/dL (8.9-20.6); Bilirubin, Total 1.7 mg/dL (0.2-1.2); Calc. Creatinine Clearance 182 mL/min (70-130); Calcium 7.2 mg/dL (7.8-10.44); Carbon Dioxide 28 mmol/L (22-29); Chloride 102 mmol/L (98-107); Estimated GFR-MDRD Greater than 90; Globulin 1.8 g/dL (2.4-3.5); Glucose 104 mg/dL (70-105); Potassium 3.6 mmol/L (3.5-5.1); Protein, Total 4.1 g/dL (6.0-8.3); Sodium 137 mmol/L (136-145)
[2020-01-17] MEDS: Pantoprazole 40 MG VIAL IVP SCH ×2 (09:00→19:53)
--- NOTE | 2020-01-17 10:11 | PRG ---
DATE OF SERVICE: SUBJECTIVE: Mr. Cesar is sitting up in bed, he says he is feeling pretty well. Overall, he feels weak, but he does not have any focal complaints. He denies abdominal pain. He has not had any diarrhea. He has been tolerating advancing his diet slowly, but he is not having any nausea or vomiting. OBJECTIVE: VITAL SIGNS: Temperature 98.1, blood pressure 115/91, heart rate 103, 100% oxygen saturation on room air. GENERAL: Sitting up on the edge of the bed comfortably, in no distress. MENTAL: He is alert and oriented x3. He is able to answer questions appropriately, but cannot remember details about outpatient medications. HEART: Regular rate and rhythm. LUNGS: Clear to auscultation bilaterally. ABDOMEN: Bowel sounds present. Soft, nontender to palpation. EXTREMITIES: 1+ bilateral lower extremity edema. LABORATORY STUDIES: WBC is 7.6, hemoglobin 9.1, platelets 65. INR 1.3. Sodium 137, potassium 3.6, BUN 11, creatinine 0.78, glucose 116, total bilirubin is 1.7 which is stable through this admission, alkaline phosphatase 160, AST 74, ALT 48, albumin 2.3. Serum ammonia level checked yesterday was normal at 31. ASSESSMENT AND PLAN: 1. Sepsis, unclear source, on broad-spectrum antibiotics, much improved clinically, the patient remains on meropenem and levofloxacin, reviewed paracentesis, fluid studies looked negative for SBP last week. 2. Ulcerative colitis, appears to be in remission on current therapy. Colonoscopy performed by Dr. Pang at bedside last week showed no evidence of active inflammatory disease and ileal and colonic biopsies actually appeared unremarkable, though he had a lot of pseudopolyps. 3. Chronic liver disease, appears secondary to alcohol. I discussed he needs to completely stop all alcohol going forward. His bilirubin has been stable this admission. Ammonia level was also normal. Mental status appears to have cleared. Job ID: [id number]
--- NOTE | 2020-01-17 14:11 | PDOC.HOSPP ---
- Subjective Encounter Date: 01/17/20 Encounter Time: 12:00 Subjective: Patient seen for follow-up regarding acute metabolic encephalopathy. He is more alert today. States he feels better. - Objective Vital Signs & Weight: Vital Signs (12 hours) Temp Pulse Ox 01/17/20 11:02 97.8 F 01/17/20 08:00 98 01/17/20 07:17 98.1 F Weight Admit Weight 194 lb 10.69 oz Weight 221 lb 4.8 oz Most Recent Monitor Data Heart Rate from ECG 98 NIBP 112/86 NIBP BP-Mean 94 Respiration from ECG 18 SpO2 98 I&O: 01/16/20 01/17/20 01/18/20 06:59 06:59 06:59 Intake Total 2600 4740 Output Total 2400 1450 Balance 200 3290 Result Diagrams: 01/17/20 05:32 01/17/20 05:32 Additional Labs: Accuchecks 01/17/20 01/17/20 01/17/20 12:10 08:08 04:19 POC Glucose 107 H 116 H 109 H 01/17/20 01/16/20 01/16/20 00:09 20:36 16:18 POC Glucose 101 H 122 H 125 H 01/15/20 01/15/20 01/15/20 22:12 20:45 06:38 POC Glucose 127 H 86 100 01/15/20 01/14/20 01/14/20 05:19 23:17 21:11 POC Glucose 103 H 62 L 44 L* 01/14/20 18:13 POC Glucose 50 L* I reviewed patient's labs and MAR EKG Reviewed by me: Yes (Telemetry: NSR) Hospitalist ROS - Review of Systems Cardiovascular: denies: chest pain, palpitations, orthopnea, paroxysmal noc. dyspnea, edema, light headedness Gastrointestinal: denies: nausea, vomiting, abdominal pain, diarrhea, constipation, melena, hematochezia - Medication Medications: Active Medications Generic Name Dose Route Start Last Admin Trade Name Freq PRN Reason Stop Dose Admin Dextrose/Water 25 gm 01/09/20 08:33 01/15/20 01:33 Dextrose 50% SLOW IVP 25 gm PRN PRN Administration Hypoglycemia Glucagon 1 mg 01/09/20 08:33 01/14/20 18:20 Glucagon IM 1 mg PRN PRN Administration Hypoglycemia Dextrose/Water 1,000 mls @ 0 mls/hr 01/09/20 08:33 01/14/20 04:48 D5w IV 1,000 mls .Q0M PRN Administration Hypoglycemia As Directed Levofloxacin 750 mg/ Device 150 mls @ 100 mls/hr 01/09/20 18:00 01/16/20 18:25 IVPB 150 mls 1800 ABRAM Administration Thiamine HCl 100 mg/ Sodium 51 mls @ 102 mls/hr 01/12/20 09:00 01/17/20 08:59 Chloride IVPB 51 mls DAILY ABRAM Administration Dextrose/Water 1,000 mls @ 100 mls/hr 01/14/20 21:45 01/17/20 04:09 Dextrose 10% In Water IV 1,000 mls .Q10H ABRAM Administration Meropenem 1 gm/ Device 50 mls @ 100 mls/hr 01/16/20 20:00 01/17/20 12:10 IVPB 50 mls 0400,1200,2000 ABRAM Administration Insulin Human Lispro 0 units 01/09/20 08:33 01/13/20 04:22 Humalog SC 2 unit .MILD SLIDING SCALE PRN Administration Mild Correctional Scale Pantoprazole Sodium 40 mg 01/09/20 09:00 01/17/20 09:00 Protonix IVP 40 mg Q12HR ABRAM Administration - Exam General - other findings: Obese Eye: scleral icterus ENT: normocephalic atraumatic Neck: supple Heart: RRR Respiratory: CTAB Gastrointestinal: soft, non-tender Extremities: 1+ LE edema Skin: no rashes Psychiatric: normal affect, normal behavior Hosp A/P - Plan -Assessment (1) Acute metabolic encephalopathy Status: Acute (2) Ulcerative colitis Code(s): K51.90 - ULCERATIVE COLITIS, UNSPECIFIED, WITHOUT COMPLICATIONS Status: Chronic (3) history of alcohol abuse Status: Chronic (3) Acute kidney injury Code(s): N17.9 - ACUTE KIDNEY FAILURE, UNSPECIFIED Status: Resolved (4) Hypokalemia Code(s): E87.6 - HYPOKALEMIA Status: Resolved (5) Hypomagnesemia Code(s): E83.42 - HYPOMAGNESEMIA Status: Resolved - Plan * Patient is improving clinically, likely symptoms were from sepsis. * Hypoglycemia resolved * Patient is on meropenem and Levaquin. * Ascites- s/p paracentesis - no evidence of SBP * DAE- due to sepsis, resolved * Hypokalemia-resolved * Hypomagnesemia-resolved * Ulcerative Colitis-colonoscopy was unremarkable * Continue thiamine * Transfer to medical floor
--- NOTE | 2020-01-17 15:27 | PDOC.PALCO ---
Palliative Care Consult - Consult Details Requesting Physician: Dr Pool Reason for Consult: goals of care, assistance with communication prognosis/disease, family support - Pertinent HPI 39 male who resides in a private home setting with his mother, with a known hist ory of ulcerative colitis. He is currently on disability. He initially presented to the [facility] emergency room after EMS was called secondary to diarrhea for the past day, and edema to lower extremities for over a month. Weakness had progressed and secondary to patient not being able to ambulate EMS was called. Initial BP of 40/30 with shallow respirations and tachycardia. CT of head negative but CT of abdomen was positive for ascites. He was started on pressors, initially vasopressin and transitioned to Levophed,given one amp of bicarb and transferred to [facility]. Further history of mother started that he has had blood in his stool recently, negative for vomiting or abdominal pain. He was admitted to the CCU subsequently intubated secondary to respiratory failure 01/08, extubated 01/12. Ulcerative colitis appears to be in remission, colonoscopy performed by Dr Pang showed no evidence of active inflammatory disease. Chronic liver disease appears to be the underlying medical consideration, related to excessive alcohol consumption. Mother did report, patient confirmed daily excessive alcohol consumption. - Pertinent PMH HTN, Ulcerative Colitis, Diabetic, chronic alcohol use, afib. - Social History Smoking Status: Unknown if ever smoked Alcohol Use: heavy, daily Drug Use History: none Living Situation: other (Lives with his mother) - Medications MAR Reviewed: Yes - Allergies Allergies/Adverse Reactions: Allergies Allergy/AdvReac Type Severity Reaction Status Date / Time No Known Allergies Allergy Verified 01/08/20 21:49 - Subjective Awake, alert. Denies pain, complains of weakness, negative for altered mental status today. - ROS Constitutional: alert, weakness ENT: dry mouth, other (using suction secodary to difficulity clearing secretions) Respiratory: other (Weak cough) Gastrointestinal: other (negative for nausea, vomiting, diarrhea) Musculoskeletal: other (negative for pain to extremity) Psychological: other (Denies anxiety, depression or hallucinations) - Objective Vital Signs: Vital Signs - Most Recent Temp Pulse Resp BP Pulse Ox 97.8 F 96 15 122/94 H 98 01/17/20 11:02 01/13/20 07:55 01/13/20 07:55 01/16/20 10:09 01/17/20 08:00 Palliative Performance Scale: 40 - Physical Exam Constitutional: ill appearing HEENT: moist MMs, sclera anicteric Respiratory: clear to auscultation bilateral, no wheezing Cardiovascular: RRR Gastrointestinal: soft, non-tender, positive bowel sounds Genitourinary: calderon catheter Musculoskeletal: no cyanosis, no clubbing, edema present Neurology: moves all 4 limbs, no focal deficits Skin: cap refill <2 seconds Deviation from normal: Pallor Psychiatric: A&O x 3, flat affect - Problem List (1) Chronic alcohol use Code(s): Z72.89 - OTHER PROBLEMS RELATED TO LIFESTYLE Current Visit: Yes Status: Acute (2) Palliative care encounter Code(s): Z51.5 - ENCOUNTER FOR PALLIATIVE CARE Current Visit: Yes Status: Acute (3) Chronic liver disease Code(s): K76.9 - LIVER DISEASE, UNSPECIFIED Current Visit: Yes Status: Acute (4) Ulcerative colitis Code(s): K51.90 - ULCERATIVE COLITIS, UNSPECIFIED, WITHOUT COMPLICATIONS Current Visit: Yes Status: Chronic (5) Anemia due to acute blood loss Code(s): D62 - ACUTE POSTHEMORRHAGIC ANEMIA Current Visit: No Status: Acute (6) Obesity (BMI 30.0-34.9) Code(s): E66.9 - OBESITY, UNSPECIFIED Current Visit: No Status: Chronic (7) Atrial fibrillation with RVR Code(s): I48.91 - UNSPECIFIED ATRIAL FIBRILLATION Current Visit: No Status: Resolved - Plan/Recommendations Plan: Palliative Care has had extensive conversations and education in relation to impact of chronic alcohol use and disease trajectory of chronic liver disease. Revisited that his ulcerative colitis is in remission. Discussed that currently patient has sufficiently withdrawn from alcohol, consideration to rehab for alcohol abuse to learn coping strategies to maintain abstinence from alcohol. He is not open to idea of inpatient program for alcohol cessation. Patient states he is agreeable to seek help through AA in his community once returning to the home setting. Given the name and numbers of men to reach out to as well as a list of AA meetings close to his home. Extensive conversation with patient mother as well. Please also refer to Palliative Care notes in note section. [70] minutes spent on this encounter with >50% of the time in counseling and coordination of care. Thank you for this very appropriate consult.
--- NOTE | 2020-01-17 16:32 | PDOC.FMACP ---
Advance Care Planning - Problem (1) Chronic alcohol use Status: Acute Code(s): Z72.89 - OTHER PROBLEMS RELATED TO LIFESTYLE (2) Palliative care encounter Status: Acute Code(s): Z51.5 - ENCOUNTER FOR PALLIATIVE CARE (3) Chronic liver disease Status: Acute Code(s): K76.9 - LIVER DISEASE, UNSPECIFIED (4) Ulcerative colitis Status: Chronic Code(s): K51.90 - ULCERATIVE COLITIS, UNSPECIFIED, WITHOUT COMPLICATIONS (5) Anemia due to acute blood loss Status: Acute Code(s): D62 - ACUTE POSTHEMORRHAGIC ANEMIA (6) Obesity (BMI 30.0-34.9) Status: Chronic Code(s): E66.9 - OBESITY, UNSPECIFIED (7) Atrial fibrillation with RVR Status: Resolved Code(s): I48.91 - UNSPECIFIED ATRIAL FIBRILLATION - Note Participants: patient, family, palliative care Summary: Palliative Care addressed Advanced Care Planning. The diagnosis, prognosis and goals of care were discussed. Appropriate forms and documentation to accomplish the goals of care were discussed. All questions were answered. Completed MPOA, original and copy given to patient as well as copy placed on the chart for medical records. Given information in relation to Directive to Physician, but did not complete. Time Spent (mins): 20
[2020-01-18] MEDS: MEROPENEM 1 GM/50 ML 1 GM in Premix Bag 1 BAG IVPB SCH ×2 (03:46→12:33)
[2020-01-18 05:37] LABS: Norovirus GI Negative (Negative); Norovirus GII Negative (Negative)
[2020-01-18 05:51] LABS: #Eosinphils 0.1 thou/uL (0.0-0.7); #Lymphocytes 1.1 thou/uL (1.20-3.40); #Monocytes 0.6 thou/uL (0.11-0.59); %Eosinophils 1.3 % (0.0-10.0); %Lymphocytes 12.3 % (21.0-51.0); %Monocytes 6.4 % (0.0-10.0); %Neutrophils 80.1 % (42.0-75.0); Hemoglobin 10.9 g/dL (14.0-18.0); Mean Corpuscular HGB CONC 31.3 g/dL (32.0-36.0); Mean Corpuscular Hemoglobin 31.4 pg (27.0-31.0); Mean Platelet Volume 12.6 fL (7.4-10.4); Platelet Count 96 thou/uL (130-400); RBC Distribution Width 21.1 % (11.5-14.5); Red Blood Cell (RBC) Count 3.48 mill/uL (4.70-6.10); White Blood Cell (WBC) Count 8.8 thou/uL (4.8-10.8)
[2020-01-18] MEDS: Dextrose 10% in Water 1,000 ML IV SCH ×2 (06:06→15:34)
[2020-01-18 06:09] LABS: ALT (SGPT) 50 U/L (8-55); AST (SGOT) 78 U/L (5-34); Albumin 2.5 g/dL (3.5-5.0); Alkaline Phosphatase 185 U/L (40-110); Anion Gap 14 mmol/L (10-20); BUN (Urea Nitrogen) 8 mg/dL (8.9-20.6); Bilirubin, Total 1.9 mg/dL (0.2-1.2); Calc. Creatinine Clearance 195 mL/min (70-130); Calcium 7.4 mg/dL (7.8-10.44); Carbon Dioxide 24 mmol/L (22-29); Chloride 102 mmol/L (98-107); Estimated GFR-MDRD Greater than 90; Globulin 2.5 g/dL (2.4-3.5); Glucose 104 mg/dL (70-105); Potassium 3.9 mmol/L (3.5-5.1); Sodium 136 mmol/L (136-145)
[2020-01-18] MEDS: Pantoprazole 40 MG VIAL IVP SCH ×2 (07:39→20:43)
--- NOTE | 2020-01-18 12:44 | PDOC.HOSPP ---
- Subjective Encounter Date: 01/18/20 Encounter Time: 08:30 Subjective: Patient seen for follow-up regarding acute metabolic encephalopathy. Reports feeling much better. - Objective Vital Signs & Weight: Vital Signs (12 hours) Temp Pulse Resp BP Pulse Ox 01/18/20 11:26 97.8 F 82 18 122/83 99 01/18/20 09:00 98 01/18/20 07:35 98.2 F 82 18 121/86 98 Weight Admit Weight 194 lb 10.69 oz Weight 221 lb 4 oz Most Recent Monitor Data Heart Rate from ECG 89 NIBP 111/77 NIBP BP-Mean 88 Respiration from ECG 21 SpO2 99 I&O: 01/17/20 01/18/20 01/19/20 06:59 06:59 06:59 Intake Total 4740 490 Output Total 1450 2375 Balance 3290 -7625 Result Diagrams: 01/18/20 05:09 01/18/20 05:09 Additional Labs: Accuchecks 01/18/20 01/18/20 01/18/20 07:44 05:12 00:52 POC Glucose 100 107 H 95 01/17/20 01/17/20 20:21 17:08 POC Glucose 90 106 H I reviewed patient's labs and MAR Hospitalist ROS - Review of Systems Cardiovascular: denies: chest pain, palpitations, orthopnea, paroxysmal noc. dyspnea, edema, light headedness Genitourinary: denies: dysuria, frequency, incontinence, hematuria, retention - Medication Medications: Active Medications Generic Name Dose Route Start Last Admin Trade Name Freq PRN Reason Stop Dose Admin Dextrose/Water 25 gm 01/09/20 08:33 01/15/20 01:33 Dextrose 50% SLOW IVP 25 gm PRN PRN Administration Hypoglycemia Glucagon 1 mg 01/09/20 08:33 01/14/20 18:20 Glucagon IM 1 mg PRN PRN Administration Hypoglycemia Dextrose/Water 1,000 mls @ 0 mls/hr 01/09/20 08:33 01/14/20 04:48 D5w IV 1,000 mls .Q0M PRN Administration Hypoglycemia As Directed Levofloxacin 750 mg/ Device 150 mls @ 100 mls/hr 01/09/20 18:00 01/17/20 17:16 IVPB 150 mls 1800 BARAM Administration Thiamine HCl 100 mg/ Sodium 51 mls @ 102 mls/hr 01/12/20 09:00 01/18/20 07:39 Chloride IVPB 51 mls DAILY ABRAM Administration Dextrose/Water 1,000 mls @ 100 mls/hr 01/14/20 21:45 01/18/20 06:06 Dextrose 10% In Water IV 1,000 mls .Q10H ABRAM Administration Meropenem 1 gm/ Device 50 mls @ 100 mls/hr 01/16/20 20:00 01/18/20 12:33 IVPB 50 mls 0400,1200,2000 ABRAM Administration Insulin Human Lispro 0 units 01/09/20 08:33 01/13/20 04:22 Humalog SC 2 unit .MILD SLIDING SCALE PRN Administration Mild Correctional Scale Pantoprazole Sodium 40 mg 01/09/20 09:00 01/18/20 07:39 Protonix IVP 40 mg Q12HR ABRAM Administration - Exam General - other findings: Obese Eye: anicteric sclera ENT: moist mucosa Neck: supple Heart: RRR Respiratory: CTAB Gastrointestinal: soft, non-tender Extremities: no cyanosis Skin: no rashes Psychiatric: normal affect, normal behavior Hosp A/P - Plan -Assessment (1) Acute metabolic encephalopathy Status: Acute (2) Ulcerative colitis Code(s): K51.90 - ULCERATIVE COLITIS, UNSPECIFIED, WITHOUT COMPLICATIONS Status: Chronic (3) history of alcohol abuse Status: Chronic (3) Acute kidney injury Code(s): N17.9 - ACUTE KIDNEY FAILURE, UNSPECIFIED Status: Resolved (4) Hypokalemia Code(s): E87.6 - HYPOKALEMIA Status: Resolved (5) Hypomagnesemia Code(s): E83.42 - HYPOMAGNESEMIA Status: Resolved - Plan * Patient continues to improve. * Patient is on meropenem and Levaquin. Will discuss with ID service regarding de-escalation. * Ascites- s/p paracentesis - no evidence of SBP * DAE- due to sepsis, resolved * Hypokalemia-resolved * Hypomagnesemia-resolved * Ulcerative Colitis-inflammation, colonoscopy was unremarkable * Continue thiamine * Patient has been counseled regarding alcohol cessation.
--- NOTE | 2020-01-18 20:22 | PRG ---
DATE OF SERVICE: 01/18/2020 REASON FOR CONSULTATION: Sepsis, history of ulcerative colitis. SUBJECTIVE: Today, the patient states that he is feeling better and was able to tolerate a solid diet without any difficulties. He had approximately two solid to semi-solid bowel movements today with no difficulty with defecation. Currently, he denies any nausea, vomiting, fevers, chills, dysphagia, odynophagia, abdominal pain, or GI bleeding. OBJECTIVE: VITAL SIGNS: Temperature 98, pulse 95, blood pressure 112/79, respiratory rate 16, and saturating 97% on room air. GENERAL: The patient was sitting at bedside, in no acute distress. Alert and oriented x4. CARDIOVASCULAR: Regular rate and rhythm. RESPIRATORY: Clear to auscultation bilaterally but with diminished breath sounds in the bilateral lower lung bases. ABDOMEN: Normoactive bowel sounds. Soft, nontender, nondistended. EXTREMITIES: 1+ bilateral lower extremity edema extending to mid alvares. LABORATORY DATA: CBC with a white blood cell count of 8.8, hemoglobin 10.9, hematocrit 34.9, and platelets 96. Chemistry with a sodium of 136, potassium 3.9, chloride 102, CO2 of 24, BUN 8, creatinine 0.73, glucose 104, AST 78, ALT 50, alkaline phosphatase 185, total bilirubin 1.9, and albumin 2.5. IMAGING DATA: No current GI imaging is available for review. ASSESSMENT AND PLAN: 1. Sepsis. The patient initially presented with clinical criteria for sepsis with an unknown etiology or source at this time. Currently tolerating meropenem and levofloxacin without difficulty. Much improved clinically while on broad-spectrum antibiotics. 2. Ulcerative colitis. Based on the colonoscopy performed during this admission, there was no evidence of active inflammatory disease with both ileal and colonic biopsies unremarkable at this time showing response to outpatient treatment. He did have the presence of numerous pseudopolyps that are remnant of the chronic inflammatory state prior to being placed on biologic therapy. At this time, I would continue to hold any immunosuppression including biologic therapy until the patient is more stable with the possibility of restarting this in the future. 3. Liver disease. The patient is presenting with imaging on admission showing diffuse hepatic steatosis and fatty sparing. However, the patient has had an elevated total bilirubin during this admission as well as an elevated AST and ALT concerning for mild alcoholic hepatitis. We discussed continued cessation of all alcohol after being discharged from the hospital from this admission. We will continue to follow. Please call with any questions. Job ID: [id number]
[2020-01-19] MEDS: Dextrose 10% in Water 1,000 ML IV SCH ×2 (05:30→17:39)
[2020-01-19 06:00] LABS: #Eosinphils 0.1 thou/uL (0.0-0.7); #Lymphocytes 0.9 thou/uL (1.20-3.40); #Monocytes 0.5 thou/uL (0.11-0.59); #Neutrophils 4.3 thou/uL (1.40-6.50); %Basophils 0.2 % (0.0-1.0); %Eosinophils 1.6 % (0.0-10.0); %Lymphocytes 14.9 % (21.0-51.0); %Monocytes 8.8 % (0.0-10.0); %Neutrophils 74.5 % (42.0-75.0); Hemoglobin 9.6 g/dL (14.0-18.0); Mean Corpuscular HGB CONC 30.4 g/dL (32.0-36.0); Mean Corpuscular Hemoglobin 30.3 pg (27.0-31.0); Mean Corpuscular Volume 99.7 fL (78.0-98.0); Platelet Count 82 thou/uL (130-400); Red Blood Cell (RBC) Count 3.17 mill/uL (4.70-6.10); White Blood Cell (WBC) Count 5.7 thou/uL (4.8-10.8)
[2020-01-19 06:10] LABS: ALT (SGPT) 39 U/L (8-55); AST (SGOT) 65 U/L (5-34); Albumin 2.3 g/dL (3.5-5.0); Alkaline Phosphatase 167 U/L (40-110); Anion Gap 12 mmol/L (10-20); BUN (Urea Nitrogen) 7 mg/dL (8.9-20.6); Bilirubin, Total 1.7 mg/dL (0.2-1.2); Calc. Creatinine Clearance 218 mL/min (70-130); Calcium 7.3 mg/dL (7.8-10.44); Carbon Dioxide 23 mmol/L (22-29); Chloride 103 mmol/L (98-107); Estimated GFR-MDRD Greater than 90; Globulin 2.2 g/dL (2.4-3.5); Glucose 110 mg/dL (70-105); Potassium 3.4 mmol/L (3.5-5.1); Protein, Total 4.5 g/dL (6.0-8.3); Sodium 135 mmol/L (136-145)
[2020-01-19] MEDS ORDERED: Potassium Chloride 20 MEQ TAB PO SCH (07:00)
[2020-01-19] MEDS: Pantoprazole 40 MG VIAL IVP SCH ×2 (09:30→20:58)
--- NOTE | 2020-01-19 12:10 | PDOC.PALPN ---
Palliative Progress Note - Subjective S/P acute metabolic encephalopathy. Awake, complains of weakness, ready to go home. - Objective Vital Signs: Vital Signs - Most Recent Temp Pulse Resp BP Pulse Ox 97.9 F 105 H 20 129/95 H 96 01/19/20 07:28 01/19/20 07:28 01/19/20 07:28 01/19/20 07:28 01/19/20 08:00 - Physical Exam Constitutional: NAD, ill appearing Deviation from normal: Obese HEENT: EOMI, moist MMs, sclera anicteric Respiratory: no rales, no rhonchi, no wheezing, unlabored breathing Cardiovascular: RRR Gastrointestinal: soft Deviation from normal: Obese Musculoskeletal: no cyanosis, no clubbing Neurology: moves all 4 limbs, no focal deficits Skin: cap refill <2 seconds Deviation from normal: Pallor Psychiatric: A&O x 3, flat affect - Assessment (1) Chronic alcohol use Code(s): Z72.89 - OTHER PROBLEMS RELATED TO LIFESTYLE Current Visit: Yes [facility]: Acute (2) Palliative care encounter Code(s): Z51.5 - ENCOUNTER FOR PALLIATIVE CARE Current Visit: Yes Status: Acute (3) Chronic liver disease Code(s): K76.9 - LIVER DISEASE, UNSPECIFIED Current Visit: Yes Status: Acute (4) Ulcerative colitis Code(s): K51.90 - ULCERATIVE COLITIS, UNSPECIFIED, WITHOUT COMPLICATIONS Current Visit: Yes Status: Chronic (5) Anemia due to acute blood loss Code(s): D62 - ACUTE POSTHEMORRHAGIC ANEMIA Current Visit: No Status: Acute (6) Obesity (BMI 30.0-34.9) Code(s): E66.9 - OBESITY, UNSPECIFIED Current Visit: No Status: Chronic - Plan Plan: Encouraged compliance with medications at home. Utilized teach back method, asking patient to "explain his understanding of greatest complication that led to hospital stay." Confirmed excessive alcohol intake. Discussed what measures he plans to have in place to continue with abstinence from alcohol. Confirmed he has the numbers of men to call as well as local schedule for AA meetings. Discussed importance of follow up with primary and GI after discharge. He expressed he continues with weakness, utilized walker to assist in ambulation. Discussed continued use to prevent falls while he regains strength. His mother, Margarita Cesar, who patient lives with has also been included in con versations on importance of abstinence from alcohol. Given information for Sukhjinder. As goal of care has been met Palliative Care will sign off. If we can assist in the future with revisiting goal of care, disease education, coping, complex decision making or revisiting advanced directives please reconsult our team. Thank you for allowing us to participate in the care of Mr Cesar. [35] minutes spent on this encounter with >50% of the time in counseling and coordination of care. - ROS Constitutional: alert, weakness ENT: other (Denies difficulity swallowing, congestion) Respiratory: other (Negative for cough) Cardiology: other (Negative for palpitations, chest pain) Musculoskeletal: other (Negative for pain to extremities)
[2020-01-19] MEDS ORDERED: Furosemide 40 MG/4 ML VIAL SLOW IVP SCH (15:15)
--- NOTE | 2020-01-19 17:16 | PRG ---
DATE OF SERVICE: 01/19/2020 SUBJECTIVE: Mr. Cesar is awake and alert. He is without complaints. His mom notes that he has swelling in his legs and that he is still on a pureed diet. There were plans for him to go home today or tomorrow. Apparently, he has refused rehab. OBJECTIVE: VITAL SIGNS: Temperature is 97, pulse 95 to 105, blood pressure 128/95. GENERAL: He has temporal wasting. He is mildly icteric. LUNGS: Clear. HEART: Regular rate and rhythm. ABDOMEN: Nontender. EXTREMITIES: Reveal 3+ edema bilaterally. LABORATORY DATA: Sodium 135, potassium 3.4, BUN and creatinine are 7 and 0.6, calcium 7.3, bilirubin is 1.7. AST is 65, down from 71 on admission; ALT is on admission. Albumin is 2.3, up from 1.8 on admission. Protein is 4.5. Other significant labs; cortisol was 12.9 on the . White count 5.7; hemoglobin 9.6, it has been stable; platelet count 82,000. INR was 1.3 on 01/10. Urine protein was high on admission. Ascitic fluid white count was 3.29 on admission. Albumin was less than 0.5. Protein was less than 1. Stool Cyclospora was negative. Toxicology alcohol was negative on admission. Drugs were negative. CMV was positive with a level of less than 200. Hepatitis A antibody negative. Hepatitis A IgM negative. Hepatitis B surface antigen antibody negative and C negative. QuantiFERON was indeterminate. Norovirus stool was negative. Cath tip culture on 01/13 was negative. negative. Stool for Campylobacter, C diff, rapid ova and parasite screen, and shiga toxins, all negative. Blood cultures were negative and lactoferrin was mildly positive. ASSESSMENT: 1. History of ulcerative colitis, in remission with multiple pseudopolyps. Random biopsy showed no active disease or infection. 2. Chronic use of both biologic therapy in the form of Humira and immunomodulator form of Imuran. No overt opportunistic infections were found on admission. 3. Admission with severe dehydration, diarrhea, and malnutrition. No overt infection was found. The etiology is felt to be related to severe alcohol abuse. 4. Equivocal QuantiFERON with negative chest x-ray. 5. Edema in the legs. RECOMMENDATIONS: 1. Advance diet to low salt diet. I have talked with Dr. Ford. He has passed swallowing studies. 2. With regard to edema, we would give him one dose of Lasix now and we can monitor his edema in the clinic. Hopefully with getting better nutrition, his edema will improve. 3. We will hold off on restarting his immunomodulator and Humira until he follows in the office next week. An appointment has been made for Friday, the , at [address] Gao. 4. The patient from my standpoint is cleared to go home later today or tomorrow morning as per Dr. Ford. If he stays, we will follow along. Job ID: [id number]
--- NOTE | 2020-01-19 19:06 | PDOC.HOSPP ---
- Subjective Encounter Date: 01/19/20 Encounter Time: 18:00 Subjective: Follow-up regarding acute encephalopathy. He reports feeling well today. - Objective Vital Signs & Weight: Vital Signs (12 hours) Temp Pulse Resp BP Pulse Ox 01/19/20 08:00 96 01/19/20 07:28 97.9 F 105 H 20 129/95 H 96 Weight Admit Weight 194 lb 10.69 oz Weight 227 lb 6.4 oz Most Recent Monitor Data Heart Rate from ECG 89 NIBP 111/77 NIBP BP-Mean 88 Respiration from ECG 21 SpO2 99 I&O: 01/18/20 01/19/20 01/20/20 06:59 06:59 06:59 Intake Total 490 1500 Output Total 2375 1550 Balance -1885 -50 Result Diagrams: 01/19/20 05:18 01/19/20 05:18 Additional Labs: Accuchecks 01/19/20 01/19/20 01/19/20 16:21 11:48 07:59 POC Glucose 66 L 104 H 115 H 01/19/20 01/19/20 01/18/20 04:52 00:24 11:36 POC Glucose 107 H 112 H 106 H I reviewed patient's labs and MAR Hospitalist ROS - Review of Systems Cardiovascular: reports: edema. denies: chest pain, palpitations, orthopnea, paroxysmal noc. dyspnea, light headedness Gastrointestinal: denies: nausea, vomiting, abdominal pain, diarrhea, constipation, melena, hematochezia - Medication Medications: Active Medications Generic Name Dose Route Start Last Admin Trade Name Freq PRN Reason Stop Dose Admin Dextrose/Water 25 gm 01/09/20 08:33 01/15/20 01:33 Dextrose 50% SLOW IVP 25 gm PRN PRN Administration Hypoglycemia Glucagon 1 mg 01/09/20 08:33 01/14/20 18:20 Glucagon IM 1 mg PRN PRN Administration Hypoglycemia Dextrose/Water 1,000 mls @ 0 mls/hr 01/09/20 08:33 01/14/20 04:48 D5w IV 1,000 mls .Q0M PRN Administration Hypoglycemia As Directed Thiamine HCl 100 mg/ Sodium 51 mls @ 102 mls/hr 01/12/20 09:00 01/19/20 09:30 Chloride IVPB 51 mls DAILY ABRAM Administration Insulin Human Lispro 0 units 01/09/20 08:33 01/13/20 04:22 Humalog SC 2 unit .MILD SLIDING SCALE PRN Administration Mild Correctional Scale Pantoprazole Sodium 40 mg 01/09/20 09:00 01/19/20 09:30 Protonix IVP 40 mg Q12HR ABRAM Administration - Exam General - other findings: Obese ENT: moist mucosa Neck: supple Heart: RRR Respiratory: CTAB Gastrointestinal: soft, non-tender Extremities: 2+ LE edema Musculoskeletal: no muscle wasting Psychiatric: normal affect, normal behavior Hosp A/P - Plan -Assessment (1) Acute metabolic encephalopathy Status: Acute (2) Ulcerative colitis Code(s): K51.90 - ULCERATIVE COLITIS, UNSPECIFIED, WITHOUT COMPLICATIONS Status: Chronic (3) history of alcohol abuse Status: Chronic (3) Acute kidney injury Code(s): N17.9 - ACUTE KIDNEY FAILURE, UNSPECIFIED Status: Resolved (4) Hypokalemia Code(s): E87.6 - HYPOKALEMIA Status: Resolved (5) Hypomagnesemia Code(s): E83.42 - HYPOMAGNESEMIA Status: Resolved - Plan * Patient continues to improve. * Antibiotics were discontinued yesterday. * Ascites- s/p paracentesis - no evidence of SBP * DAE- due to sepsis, resolved * Hypokalemia-resolved * Hypomagnesemia-resolved * Ulcerative Colitis-inflammation, colonoscopy was unremarkable * Continue thiamine * Patient has been counseled regarding alcohol cessation. * Therapy services recommended inpatient rehab. However, patient does not wish to go to inpatient rehab. He wishes to go home with home health. He reports that he has a walker at home. * Diuretics for edema. * Advance diet.
[2020-01-20 07:37] LABS: ALT (SGPT) 36 U/L (8-55); AST (SGOT) 51 U/L (5-34); Albumin 2.5 g/dL (3.5-5.0); Alkaline Phosphatase 181 U/L (40-110); Anion Gap 12 mmol/L (10-20); BUN (Urea Nitrogen) 7 mg/dL (8.9-20.6); Bilirubin, Total 2.3 mg/dL (0.2-1.2); Calc. Creatinine Clearance 203 mL/min (70-130); Calcium 7.5 mg/dL (7.8-10.44); Carbon Dioxide 27 mmol/L (22-29); Chloride 102 mmol/L (98-107); Estimated GFR-MDRD Greater than 90; Globulin 2.4 g/dL (2.4-3.5); Glucose 77 mg/dL (70-105); Potassium 3.3 mmol/L (3.5-5.1); Protein, Total 4.9 g/dL (6.0-8.3); Sodium 138 mmol/L (136-145)
[2020-01-20 07:38] LABS: #Basophils 0.1 thou/uL (0.0-0.2); #Eosinphils 0.1 thou/uL (0.0-0.7); #Lymphocytes 0.9 thou/uL (1.20-3.40); #Monocytes 0.6 thou/uL (0.11-0.59); #Neutrophils 4.2 thou/uL (1.40-6.50); %Lymphocytes 14.8 % (21.0-51.0); %Monocytes 10.1 % (0.0-10.0); Hemoglobin 10.1 g/dL (14.0-18.0); Mean Corpuscular HGB CONC 31.9 g/dL (32.0-36.0); Mean Corpuscular Hemoglobin 32.3 pg (27.0-31.0); Mean Platelet Volume 11.5 fL (7.4-10.4); Platelet Count 100 thou/uL (130-400); RBC Distribution Width 20.4 % (11.5-14.5); Red Blood Cell (RBC) Count 3.12 mill/uL (4.70-6.10); White Blood Cell (WBC) Count 5.8 thou/uL (4.8-10.8)
[2020-01-20] MEDS ORDERED: Potassium Chloride 20 MEQ TAB PO SCH (08:00)
[2020-01-20] MEDS: Pantoprazole 40 MG VIAL IVP SCH ×2 (08:53→21:11)
[2020-01-20] MEDS ORDERED: Iopamidol-370 76% 500 ML 1 ML ONE (09:33)
--- NOTE | 2020-01-20 13:01 | CT ---
Exam: CT angiogram of the chest HISTORY: Evaluate for pulmonary artery embolism. Elevated d-dimer. Tachycardia. COMPARISON: 01/08/2020 TECHNIQUE: CT angiogram of the chest is performed in the axial plane. Three-dimensional reformatted i mages are submitted for interpretation FINDINGS: Mediastinum: No mass, lymphadenopathy or hematoma. HEART: Normal size. No significant pericardial fluid. Aorta: No aneurysm or dissection Upper solid abdominal viscera: No solid organ abnormality. There is evidence of ascites which as poss ibly progressed since the previous examination. Hypoattenuation of the liver due to hepatic steatosis is noted. Trachea and central bronchi: Patent Pleural spaces: Small left pleural effusion Lung parenchyma: Consolidation in both lower lobes likely representing atelectasis, aspiration or pne umonia. Pneumothorax: None Osseous structures: No lytic or blastic lesions Pulmonary arteries: Adequate contrast opacification pulmonary arterial system to the level of segment al arteries. There is a filling defect involving a left lower lobe distal segmental artery. No additional filling defects are appreciated. IMPRESSION: 1. Distal left lower lobe segmental artery pulmonary embolism. 2. Worsening ascites is suspected 3. Bibasilar consolidation due to atelectasis, aspiration or pneumonia. Results of study conveyed to Dr. Ford via [employer] connect 01/20/2020 12:57 PM Code CR
--- NOTE | 2020-01-20 17:10 | PDOC.HOSPP ---
- Subjective Encounter Date: 01/20/20 Encounter Time: 17:05 Subjective: Patient seen for follow-up regarding pulmonary embolism. He denies any chest pain or shortness of breath. - Objective Vital Signs & Weight: Vital Signs (12 hours) Temp Pulse Resp BP Pulse Ox 01/20/20 16:00 98.4 F 98 20 94/67 96 01/20/20 12:55 98.2 F 106 H 18 123/88 98 01/20/20 11:52 98.1 F 108 H 20 106/76 97 01/20/20 10:30 98 01/20/20 08:53 93 L 01/20/20 07:45 98.8 F 111 H 18 106/75 93 L Weight Admit Weight 194 lb 10.69 oz Weight 227 lb 6.4 oz Most Recent Monitor Data Heart Rate from ECG 89 NIBP 111/77 NIBP BP-Mean 88 Respiration from ECG 21 SpO2 99 I&O: 01/19/20 01/20/20 01/21/20 06:59 06:59 06:59 Intake Total 1500 Output Total 1550 Balance -50 Result Diagrams: 01/20/20 06:54 01/20/20 06:54 Additional Labs: Accuchecks 01/20/20 01/20/20 01/20/20 16:59 11:25 07:54 POC Glucose 100 104 H 100 01/20/20 01/20/20 06:06 01:10 POC Glucose 67 L 77 I reviewed patient's labs and MAR Hospitalist ROS - Review of Systems Respiratory: denies: cough, shortness of breath, SOB with excertion, pleuritic pain, wheezing Cardiovascular: denies: chest pain, palpitations, orthopnea, paroxysmal noc. dyspnea, edema, light headedness - Medication Medications: Active Medications Generic Name Dose Route Start Last Admin Trade Name Freq PRN Reason Stop Dose Admin Dextrose/Water 25 gm 01/09/20 08:33 01/15/20 01:33 Dextrose 50% SLOW IVP 25 gm PRN PRN Administration Hypoglycemia Glucagon 1 mg 01/09/20 08:33 01/14/20 18:20 Glucagon IM 1 mg PRN PRN Administration Hypoglycemia Dextrose/Water 1,000 mls @ 0 mls/hr 01/09/20 08:33 01/14/20 04:48 D5w IV 1,000 mls .Q0M PRN Administration Hypoglycemia As Directed Thiamine HCl 100 mg/ Sodium 51 mls @ 102 mls/hr 01/12/20 09:00 01/20/20 08:53 Chloride IVPB 51 mls DAILY ABRAM Administration Insulin Human Lispro 0 units 01/09/20 08:33 01/13/20 04:22 Humalog SC 2 unit .MILD SLIDING SCALE PRN Administration Mild Correctional Scale Pantoprazole Sodium 40 mg 01/09/20 09:00 01/20/20 08:53 Protonix IVP 40 mg Q12HR ABRAM Administration Sodium Chloride 10 ml 01/20/20 09:00 01/20/20 08:53 Flush - Normal Saline 10 Ml Syringe IVF 10 ml Q12HR ABRAM Administration - Exam General - other findings: Obese Eye: scleral icterus ENT: normocephalic atraumatic Neck: supple, no thyromegaly Heart: RRR Respiratory: CTAB Gastrointestinal: soft, non-tender Extremities: 2+ LE edema Skin: no rashes Musculoskeletal: no muscle wasting Psychiatric: normal affect, normal behavior Hosp A/P - Plan -Assessment (1) pulmonary embolism Status: Acute (2) Ulcerative colitis Code(s): K51.90 - ULCERATIVE COLITIS, UNSPECIFIED, WITHOUT COMPLICATIONS Status: Chronic (3) history of alcohol abuse Status: Chronic (3) Acute kidney injury Code(s): N17.9 - ACUTE KIDNEY FAILURE, UNSPECIFIED Status: Resolved (4) Hypokalemia Code(s): E87.6 - HYPOKALEMIA Status: Resolved (5) Hypomagnesemia Code(s): E83.42 - HYPOMAGNESEMIA Status: Resolved (6) Acute metabolic encephalopathy Status: Resolved - Plan * Had a lengthy discussion with patient in the room and with his mother over the telephone. Patient will need anticoagulation for pulmonary embolism. Discussed the benefits and risks of anticoagulation, especially given patient's thrombocytopenia. Patient wishes to proceed with anticoagulation. Another concern is his mobility. He was recommended inpatient rehab, however he wishes to go to home with home health. Discussed the consequences of a fall while on anticoagulation. Patient will discuss with his mother and decide discharge disposition. Patient will be started on apixaban tonight. * Ulcerative Colitis-inflammation, colonoscopy was unremarkable * Continue thiamine * Patient has been counseled regarding alcohol cessation. * Patient received a one-time dose of furosemide for edema. * Patient is tolerating diet well.
[2020-01-20] MEDS: Apixaban 5 MG TAB PO SCH (21:10)
[2020-01-21 06:26] LABS: #Eosinphils 0.1 thou/uL (0.0-0.7); #Lymphocytes 0.9 thou/uL (1.20-3.40); #Monocytes 0.7 thou/uL (0.11-0.59); #Neutrophils 4.2 thou/uL (1.40-6.50); %Basophils 0.8 % (0.0-1.0); %Lymphocytes 15.6 % (21.0-51.0); %Monocytes 11.1 % (0.0-10.0); %Neutrophils 70.5 % (42.0-75.0); Mean Corpuscular HGB CONC 32.3 g/dL (32.0-36.0); Mean Corpuscular Hemoglobin 32.9 pg (27.0-31.0); Mean Platelet Volume 11.5 fL (7.4-10.4); Platelet Count 130 thou/uL (130-400); RBC Distribution Width 20.7 % (11.5-14.5); Red Blood Cell (RBC) Count 3.02 mill/uL (4.70-6.10)
[2020-01-21 06:47] LABS: ALT (SGPT) 34 U/L (8-55); AST (SGOT) 53 U/L (5-34); Albumin 2.6 g/dL (3.5-5.0); Alkaline Phosphatase 185 U/L (40-110); Anion Gap 14 mmol/L (10-20); BUN (Urea Nitrogen) 8 mg/dL (8.9-20.6); Bilirubin, Total 2.2 mg/dL (0.2-1.2); Calc. Creatinine Clearance 197 mL/min (70-130); Calcium 7.7 mg/dL (7.8-10.44); Carbon Dioxide 24 mmol/L (22-29); Chloride 104 mmol/L (98-107); Estimated GFR-MDRD Greater than 90; Globulin 2.7 g/dL (2.4-3.5); Glucose 86 mg/dL (70-105); Potassium 3.8 mmol/L (3.5-5.1); Protein, Total 5.3 g/dL (6.0-8.3); Sodium 138 mmol/L (136-145)
[2020-01-21] MEDS: Apixaban 5 MG TAB PO SCH (08:33)
[2020-01-21] MEDS: Pantoprazole 40 MG VIAL IVP SCH (08:33)
[2020-01-21 10:56] VITALS: BMI 30.7
[2020-01-21 15:44] VITALS: BP 120/90; TEMP 98.6
--- NOTE | 2020-01-22 02:13 | DIS ---
DATE OF ADMISSION: 01/08/2020 DATE OF DISCHARGE: 01/21/2020 PRIMARY CARE PROVIDER: Tee Terry MD DISCHARGE DIAGNOSES: 1. Acute metabolic encephalopathy. 2. Sepsis. 3. Pulmonary embolism. 4. Hypokalemia. 5. Hyponatremia. 6. COVID-19 test negative. CONDITION OF PATIENT ON THE DAY OF DISCHARGE: Stable. I assessed Mr. Cesar on the day of discharge. He denies any chest pain or shortness of breath. Vital signs are stable. S1 and S2 are heard, regular. Lungs are clear to auscultation bilaterally. CONSULTATIONS DURING THIS HOSPITALIZATION: Gastroenterology, Dr. Pang; Pulmonary Critical Care Medicine, Dr. Urban; and Infectious Diseases, Dr. Angelo. DISCHARGE MEDICATIONS: 1. His beta edmond has been changed to Toprol-XL 12.5 mg daily. He is being started on folic acid 1 mg daily and Eliquis 10 mg 2 times a day for 6 more days followed by 5 mg 2 times a day. 2. His calcium channel edmond has been discontinued secondary to borderline blood pressures. Otherwise, no change was made to his pre-admission home medications. HOSPITAL COURSE: Mr. Cesar is a pleasant 39-year-old gentleman, who was admitted to [facility] on January 08, 2020, for hypotension in the setting of severe diarrhea secondary to ulcerative colitis exacerbation. His presentation was consistent with sepsis. He was admitted to critical care unit. He was started on vasopressors. On January 08, he underwent colonoscopy. There was no sign of acute or active colitis. There were multiple pseudopolyps throughout the colon. There was a stricture at the descending colon at 60 cm that appeared benign. Random biopsies were taken. He also did not have any signs of pseudomembrane or Clostridium difficile. The pathology report from ileal biopsy, ascending colon biopsy, descending colon biopsy, and sigmoid colon biopsy did not show any dysplasia or malignancy. He also had altered mental status, most likely secondary to alcohol withdrawal. He does have a history of daily alcohol abuse. He was also treated with empiric antibiotics because of a septic picture. He was seen by Infectious Disease Service. Antibiotics were continued until all cultures came back negative. He had ultrasound-guided paracentesis of ascitic fluid, which on analysis did not show any evidence of SBP. He was eventually transitioned to the medical floor. He was seen by Therapy Services. He was recommended inpatient rehab, but patient did not want to go to inpatient rehab. During this hospitalization, his platelet count was low. However, platelets recovered into the normal range on the day of discharge. On the day prior to discharge, he was noted to have sinus tachycardia. D-dimer was found to be elevated, and CT angiogram of the chest revealed distal left lower lobe segmental artery pulmonary embolism. I had a lengthy discussion with the patient in person and with his mother over the telephone regarding risks and benefits of anticoagulation. I also recommended admission to rehab as inpatient until he gets stronger, since a fall and intracranial bleed could be disastrous. However, patient after discussing with his mother decided to go home with home health. Arrangements are being made for the same. Many thanks for allowing me to participate in your patient's care. Please feel free to contact me with any questions or concerns. FOLLOWUP: Post acute care followup: With Gastroenterology, Dr. Gao on January 25, 2020, at 4:00 p.m. and with primary care provider in 3 days. DIET: Heart-healthy and low-sodium. ACTIVITY: As tolerated. DISCHARGE DESTINATION: Home. TIME SPENT: Total amount of time spent coordinating this discharge: Thirty-two minutes. Job ID: [id number]
== END 2020-01-21 16:25 | disposition home or self-care (01) | DRG 871 ==
LOC: ERS 17:33 → CCU 20:01 → IMCU/EMU 01-14 10:11 → T4-A 01-17 15:46
PROVIDERS: ADMIT Internal Medicine; ATTEND Internal Medicine
PROC: 3E033XZ Introduction of Vasopressor into Peripheral Vein, Percutaneous Approach (ICD-10-PCS; principal; 2020-01-08)
PROC: 06HY33Z Insertion of Infusion Device into Lower Vein, Percutaneous Approach (ICD-10-PCS; 2020-01-08)
PROC: 5A09357 Assistance with Respiratory Ventilation, Less than 24 Consecutive Hours, Continuous Positive Airway Pressure (ICD-10-PCS; 2020-01-08)
PROC: 5A1945Z Respiratory Ventilation, 24-96 Consecutive Hours (ICD-10-PCS; 2020-01-09)
PROC: 0BH17EZ Insertion of Endotracheal Airway into Trachea, Via Natural or Artificial Opening (ICD-10-PCS; 2020-01-09)
PROC: 0DBK8ZX Excision of Ascending Colon, Via Natural or Artificial Opening Endoscopic, Diagnostic (ICD-10-PCS; 2020-01-09)
PROC: 0DBN8ZX Excision of Sigmoid Colon, Via Natural or Artificial Opening Endoscopic, Diagnostic (ICD-10-PCS; 2020-01-09)
PROC: 0DBB8ZX Excision of Ileum, Via Natural or Artificial Opening Endoscopic, Diagnostic (ICD-10-PCS; 2020-01-09)
PROC: 0DBM8ZX Excision of Descending Colon, Via Natural or Artificial Opening Endoscopic, Diagnostic (ICD-10-PCS; 2020-01-09)
PROC: 30233N1 Transfusion of Nonautologous Red Blood Cells into Peripheral Vein, Percutaneous Approach (ICD-10-PCS; 2020-01-10)
PROC: 30233L1 Transfusion of Nonautologous Fresh Plasma into Peripheral Vein, Percutaneous Approach (ICD-10-PCS; 2020-01-11)
PROC: 30233K1 Transfusion of Nonautologous Frozen Plasma into Peripheral Vein, Percutaneous Approach (ICD-10-PCS; 2020-01-11)
PROC: 0W9G3ZZ Drainage of Peritoneal Cavity, Percutaneous Approach (ICD-10-PCS; 2020-01-11)
DX: A41.9 Sepsis, unspecified organism (principal); R65.21 Severe sepsis with septic shock; G93.41 Metabolic encephalopathy; I26.99 Other pulmonary embolism without acute cor pulmonale; J96.00 Acute respiratory failure, unspecified whether with hypoxia or hypercapnia; F10.239 Alcohol dependence with withdrawal, unspecified; Z51.5 Encounter for palliative care; Z20.828 Contact with and (suspected) exposure to other viral communicable diseases; E87.1 Hypo-osmolality and hyponatremia; K51.90 Ulcerative colitis, unspecified, without complications; E87.2 Acidosis; N17.9 Acute kidney failure, unspecified; D68.4 Acquired coagulation factor deficiency; K76.6 Portal hypertension; D62 Acute posthemorrhagic anemia; E11.649 Type 2 diabetes mellitus with hypoglycemia without coma; D69.6 Thrombocytopenia, unspecified; E87.6 Hypokalemia; F17.220 Nicotine dependence, chewing tobacco, uncomplicated; I48.0 Paroxysmal atrial fibrillation; K21.9 Gastro-esophageal reflux disease without esophagitis; E83.42 Hypomagnesemia; E86.9 Volume depletion, unspecified; E86.0 Dehydration; I10 Essential (primary) hypertension; K70.31 Alcoholic cirrhosis of liver with ascites; L98.8 Other specified disorders of the skin and subcutaneous tissue; Y90.0 Blood alcohol level of less than 20 mg/100 ml; E66.9 Obesity, unspecified; Z68.30 Body mass index [BMI] 30.0-30.9, adult; Z28.82 Immunization not carried out because of caregiver refusal; Z79.899 Other long term (current) drug therapy; Z78.1 Physical restraint status; Z79.84 Long term (current) use of oral hypoglycemic drugs
CPT/HCPCS: 36415; 36416; 36430; 36556; 36600; 49083; 71045; 71275; 74018; 74177; 80053; 80202; 80306; 80307; 81003; 81015; 82042; 82140; 82533; 82805; 83605; 83630; 83690; 83735; 84100; 84157; 84484; 85025; 85060; 85379; 85610; 85730; 86480; 86706; 86708; 86709; 86753; 86803; 86850; 86900; 86901; 87015; 87040; 87070; 87071; 87086; 87205; 87206; 87324; 87328; 87329; 87340; 87385; 87427; 87449; 87497; 87798; 88305; 89051; 93005; 93306; 93970; 94002; 94003; 94660; 96365; 96366; 96368; 96375; 99292; C9113; J0330; J0692; J1100; J1610; J1720; J1815; J1940; J1956; J2185; J2248; J2543; J2704; J2760; J3010; J3370; J3411; J3430; J3475; J3480; J3490; J7042; J7050; J7070; P9016; P9047; P9059; Q9967; U0002

== ENCOUNTER 2020-01-31 21:08 | Inpatient (IN) | payer MEDICARE, OTHER ==
[~2020-01-31 21:08] MED LIST changes: +Iopamidol 370 76% 100 ML VIAL ONE; -Iopamidol-370 76% 500 ML 1 ML ONE
[2020-01-31] MEDS ORDERED: Dextrose 50% Abboject 50 ML SYRINGE ONE ×2 (21:19→22:46)
[2020-01-31] MEDS ORDERED: Norepinephrine 8 MG/0.9% NS 250 ML ONE (21:25)
[2020-01-31] MEDS ORDERED: Cefepime 2 GM VIAL ONE ×2 (21:41→21:42)
[2020-01-31] MEDS ORDERED: Octreotide Acetate 50 MCG/ML AMP ONE (21:52)
[2020-01-31] MEDS ORDERED: Pantoprazole 40 MG VIAL ONE (21:52)
[2020-01-31] MEDS ORDERED: Octreotide Acetate 1,250 MCG in Sodium Chloride 0.9% 250 ML 250 ML IVPB SCH ×2 (22:00→23:45)
[2020-01-31] MEDS ORDERED: Pantoprazole 80 MG, Admixture Fee 1 EACH in Sodium Chloride 0.9% 100 ML IVPB SCH (22:00)
[2020-01-31 22:01] LABS: Actual Bicarbonate (HCO3a) 12.8 mEq/L (22-28); Analyzer IN Cardio ER; Base Excess (BEa) -14.8 mEq/L (-2.0 to +3.0); CO2 Tension 36.2 mmHg (35.0-45.0); Calcium, Ionized (arterial) 0.92 mmol/L (1.12-1.30); Carboxyhemoglobin (COHb) 0.3 gm% (0.0-3.0); Hemoglobin (Hb) 12.8 g/dL (14.0-18.0); O2 Tension (PaO2), arterial 287.2 mmHg (80.0-100.0); Potassium - ABG Lab 2.92 mmol/L (3.70-5.30)
[2020-01-31 22:05] LABS: Hemoglobin 13.2 g/dL (14.0-18.0); Mean Corpuscular HGB CONC 31.4 g/dL (32.0-36.0); Mean Corpuscular Hemoglobin 31.2 pg (27.0-31.0); Mean Corpuscular Volume 99.3 fL (78.0-98.0); RBC Distribution Width 17.3 % (11.5-14.5); Red Blood Cell (RBC) Count 4.25 mill/uL (4.70-6.10)
[2020-01-31 22:06] LABS: #Eosinphils 0.1 thou/uL (0.0-0.7); #Lymphocytes 0.5 thou/uL (1.20-3.40); #Monocytes 0.1 thou/uL (0.11-0.59); #Neutrophils 6.7 thou/uL (1.40-6.50); %Basophils 0.3 % (0.0-1.0); %Eosinophils 1.2 % (0.0-10.0); %Lymphocytes 6.8 % (21.0-51.0); %Monocytes 1.6 % (0.0-10.0); %Neutrophils 90.1 % (42.0-75.0)
[2020-01-31 22:07] LABS: Mean Platelet Volume 9.3 fL (7.4-10.4); Platelet Count 198 thou/uL (130-400); White Blood Cell (WBC) Count 7.5 thou/uL (4.8-10.8)
--- NOTE | 2020-01-31 22:18 | RAD ---
Exam: Chest one view HISTORY:Syncope Comparison: 01/15/2020 FINDINGS: Cardiac silhouette:Cardiomegaly Lines and tubes: Endotracheal tube extends beyond the clavicle. Nasogastric tube extends beyond the d iaphragm. Aorta: Unremarkable Pulmonary vessels: Normal Costophrenic angles: Clear LUNGS: Diminished lung volumes with elevation the right hemidiaphragm. Limited evaluation due to port able and supine technique. Pneumothorax: No obvious pneumothorax on this portable technique Osseous abnormalities: None IMPRESSION: 1. Cardiomegaly 2. Diminished lung volumes, likely due to poor lung expansion/inspiration. 3. Endotracheal and nasogastric tubes as above.
[2020-01-31 22:19] LABS: Fibrinogen 153 mg/dL (253-463); INR-International Normal Ratio 2.7; PTT 40.3 sec (22.9-36.1); Prothrombin Time 28.8 sec (12.0-14.7)
[2020-01-31 22:29] LABS: FSP-Qualitative ABNORMAL (Normal); FSP-Semiquantitative >=5 & <20 mcg/mL (Less than 5)
[2020-01-31 22:30] LABS: Platelet Count 198 thou/uL (130-400)
[2020-01-31 22:34] LABS: D-Dimer Test 4.64 *mcg/mL (0.27-0.43)
[2020-01-31 22:50] LABS: ALT (SGPT) 22 U/L (8-55); AST (SGOT) 43 U/L (5-34); Alkaline Phosphatase 137 U/L (40-110); Anion Gap 24 mmol/L (10-20); BUN (Urea Nitrogen) 20 mg/dL (8.9-20.6); Bilirubin, Total 1.3 mg/dL (0.2-1.2); Calc. Creatinine Clearance 0 mL/min (70-130); Calcium 6.5 mg/dL (7.8-10.44); Carbon Dioxide 12 mmol/L (22-29); Chloride 103 mmol/L (98-107); Estimated GFR-MDRD 58; Globulin 2.2 g/dL (2.4-3.5); Glucose 89 mg/dL (70-105); Lipase 36 U/L (8-78); Protein, Total 4.2 g/dL (6.0-8.3); Sodium 136 mmol/L (136-145)
[2020-01-31 22:55] LABS: Potassium 2.8 mmol/L (3.5-5.1)
[2020-01-31] MEDS ORDERED: Vancomycin 1.5 GRAM/300 ML BAG 1.5 GM in Premix Bag 1 BAG IVPB SCH (23:00)
[2020-01-31] MEDS ORDERED: Albumin 25% 25 GM/100 ML BOT IVPB SCH (23:00)
[2020-01-31 23:15] LABS: pH, Arterial 7.17 (7.35-7.45)
[2020-01-31 23:16] LABS: Puncture Site R BRACHIAL
[2020-01-31] MEDS ORDERED: Vancomycin 1 GM in Premix Bag 1 BAG IVPB ONE (23:30)
[2020-01-31] MEDS ORDERED: Promethazine HCl 12.5 MG in Sodium Chloride 0.9% 50 ML IVPB PRN (23:35)
[2020-01-31] MEDS ORDERED: hydrALAZINE 20 MG/ML VIAL SLOW IVP PRN (23:35)
[2020-01-31] MEDS ORDERED: Milk Of Magnesia 30 ML UDCUP PO PRN (23:37)
[2020-01-31] MEDS ORDERED: Acetaminophen 325 MG/10.15 ML UDCUP PO PRN (23:37)
[2020-01-31] MEDS ORDERED: Acetaminophen 325 MG Suppository PR PRN (23:37)
[2020-01-31] MEDS ORDERED: Mag-Al 1200 mg/1200 mg/30 ML UDCUP PO PRN (23:37)
[2020-01-31] MEDS ORDERED: Bisacodyl 10 MG SUPP PR PRN (23:37)
--- NOTE | 2020-01-31 23:39 | PDOC.HHP ---
Hospitalist HPI - History of Present Illness Respiratory failure, syncope, shock History of Present Illness: Patient is a 39 year old male with PMH cirrhosis who presents to ED after syncopal episode and dark, possible melanotic stool at home. At home, he reportedly developed altered mental status after a bowel movement, which was reportedly black and tarry. Patient then had syncopal episode, when EMS arrived patient blood pressures were in 40/20s, got push of vasopressors, never actually lost his pulse as far as we are aware. He was given 2 units whole blood, IO and airway device placed, patient transported to ED. Here, converted to full intubation. No bloody or melanotic stool or vomit reported since arrival here. Vitals improved to 90s/70s with interventions of 6u pRBC, as well as FFP and abx, pressors, fluids/albumin, octreotide/protonix. tachycardic to 110-120s. QTcc > 600 on EKG. Lactic acid was 11, K 2.8. TSH 16. 2 central lines placed. Patient given broad spectrum abx, cultures drawn, CXR w/ cardiomegaly and decreased lung volumes. neville CT performed and read pending. Unfortunately no further history could be obtained. Dr Zacarias was called and notified of updates in ED. DDx still broad however ED believed most consistent with septic shock from unknown source (presumed GI in nature). Patient admitted to ICU. Hospitalist ROS - Review of Systems ROS unobtainable: due to endotracheal tube - Medication Medications: reviewed, - Exam General - other findings: intubated Eye: PERRL ENT: normocephalic atraumatic, no oropharyngeal lesions Neck: supple, no JVD Heart: RRR, no murmur, no gallops Respiratory: CTAB, no wheezes, no rales Gastrointestinal: soft, non-tender, no palpable masses, no hepatomegaly Extremities: no cyanosis, no clubbing, no edema Skin: normal turgor, no lesions, no rashes Neurological - other findings: intubated rass -2 Musculoskeletal: normal tone, normal strength Psychiatric - other findings: unable to evaluate Hospitalist Results - Labs Result Diagrams: 02/01/20 11:32 02/01/20 11:32 Lab results: WBC 7.5 thou/uL (4.8-10.8) 01/31/20 21:58 Hgb 13.2 g/dL (14.0-18.0) L 01/31/20 21:58 Hct 42.2 % (42.0-52.0) 01/31/20 21:58 MCV 99.3 fL (78.0-98.0) H 01/31/20 21:58 Plt Count 198 thou/uL (130-400) 01/31/20 21:58 Plt Count 198 thou/uL (130-400) 01/31/20 21:58 Neutrophils % 90.1 % (42.0-75.0) H 01/31/20 21:58 ABG pH 7.17 (7.35-7.45) L* 01/31/20 21:56 ABG pCO2 36.2 mmHg (35.0-45.0) 01/31/20 21:56 ABG pO2 287.2 mmHg (80.0-100.0) H 01/31/20 21:56 Sodium 136 mmol/L (136-145) 01/31/20 21:58 Potassium 2.8 mmol/L (3.5-5.1) L* 01/31/20 21:58 Chloride 103 mmol/L (98-107) 01/31/20 21:58 Carbon Dioxide 12 mmol/L (22-29) L 01/31/20 21:58 BUN 20 mg/dL (8.9-20.6) 01/31/20 21:58 Creatinine 1.38 mg/dL (0.7-1.3) H 01/31/20 21:58 Glucose 89 mg/dL (70-105) 01/31/20 21:58 Lactic Acid 11.0 mmol/L (0.5-2.2) H* 01/31/20 21:58 Calcium 6.5 mg/dL (7.8-10.44) L 01/31/20 21:58 Total Bilirubin 1.3 mg/dL (0.2-1.2) H 01/31/20 21:58 AST 43 U/L (5-34) H 01/31/20 21:58 ALT 22 U/L (8-55) 01/31/20 21:58 Alkaline Phosphatase 137 U/L (40-110) H 01/31/20 21:58 Ammonia 70 umol/L (18-72) 01/31/20 22:14 Troponin I 0.022 ng/mL (< 0.028) 01/31/20 22:14 Serum Total Protein 4.2 g/dL (6.0-8.3) L 01/31/20 21:58 Albumin 2.0 g/dL (3.5-5.0) L 01/31/20 21:58 Lipase 36 U/L (8-78) 01/31/20 21:58 Additional comment: labs, imaging reports, ed documents reviewed. Hospitalist H&P A/P - Plan Plan: Patient is a 39 year old male with PMH cirrhosis who presents to ED after syncopal episode and dark, possible melanotic stool at home. At home, he reportedly developed altered mental status after a bowel movement, which was reportedly black and tarry. Patient then had syncopal episode, when EMS arrived patient blood pressures were in 40/20s, got push of vasopressors, never actually lost his pulse as far as we are aware. He was given 2 units whole blood, IO and airway device placed, patient transported to ED. Here, converted to full intubation. No bloody or melanotic stool or vomit reported since arrival here. Vitals improved to 90s/70s with interventions of 6u pRBC, as well as FFP and abx, pressors, fluids/albumin, octreotide/protonix. tachycardic to 110-120s. QTcc > 600 on EKG. Lactic acid was 11, K 2.8. TSH 16. 2 central lines placed. Patient given broad spectrum abx, cultures drawn, CXR w/ cardiomegaly and decreased lung volumes. neville CT performed and read pending. Unfortunately no f urther history could be obtained. Dr Zacarias was called and notified of updates in ED. DDx still broad however ED believed most consistent with septic shock from unknown source (presumed GI in nature). Patient admitted to ICU. # shock - suspect septic shock, though hypovolemic shock possible if GI bleed developing # melenotic stool suspected # history of cirrhosis w/ varices # anemia - possibly anemia of blood loss - admit to CCU - continue octreotide drip, IV ppi - abx: empiric ceftriaxone, vancomycin, flagyl to cover colitis, SBP and other GI infections - follow up CT reads - consult pulmonary/GI - sedation/ventilator protocols, appreciate pulmonary assistance in ED - continue vasopressors, albumin ordered # coagulopathy - due to liver disease, got FFP in ED, trend coagulation studies # prolonged QTc # hypokalemia got KCl and MgSO4 in ED - trend K/Mg, replacement parameters, cardiac monitoring # elevated D dimer - follow up CTs # hypocalcemia - replaced in ED, trend BMP 75 minutes critical care time, organ failure present, high probability of clinical deterioration and very complex case medically DVT/GI ppx - SCD, PPI Full code
[2020-01-31] MEDS ORDERED: Sodium Chloride 0.9% (PF) 10 ML VIAL FS PRN (23:45)
[2020-01-31] MEDS ORDERED: DISCONTINUE PREVIOUS NARCOTIC PAIN MEDICATIONS AND BENZODIAZEPINES FS SCH (23:45)
[2020-01-31] MEDS ORDERED: Propofol BOLUS 1,000 MG/100 ML VIAL IV PRN (23:45)
[2020-01-31] MEDS ORDERED: Electrolyte Replacement Protoc 1 EACH EACH FS SCH (23:45)
[2020-01-31] MEDS ORDERED: Ventilator Sedation Protocol 1 EACH FS SCH (23:45)
[2020-01-31] MEDS ORDERED: Morphine 2 MG/ML VIAL SLOW IVP PRN (23:45)
[2020-01-31] MEDS ORDERED: Fentanyl BOLUS 250 ML IVPB PRN (23:45)
[2020-01-31] MEDS ORDERED: Magnesium 2 GM/50 ML BAG (IN WATER) ONE (23:52)
[2020-01-31] MEDS ORDERED: Calcium Chloride 1 GM/10 ML Abboject SYRINGE ONE (23:52)
[2020-01-31] MEDS ORDERED: Potassium Chloride 20 MEQ TAB ONE (23:56)
[2020-02-01 00:09] LABS: Lactic Acid 10.8 mmol/L (0.5-2.2)
[2020-02-01] MEDS ORDERED: Potassium Chloride 40 MEQ in Sodium Chloride 0.9% 250 ML 250 ML IVPB SCH (00:30)
[2020-02-01] MEDS ORDERED: Fentanyl 100 MCG/2 ML VIAL ONE (00:57)
[2020-02-01] MEDS ORDERED: cefTRIAXone\\ROCEPHIN 2 GM in Sodium Chloride 0.9% 100 ML IVPB SCH (01:00)
[2020-02-01 01:02] LABS: Lactic Acid 10.8 mmol/L (0.5-2.2)
[2020-02-01] MEDS: Norepinephrine 8 MG/0.9% NS 250 ML IVPB PRN ×2 (01:48→18:26)
[2020-02-01 01:49] LABS: Actual Bicarbonate (HCO3a) 11.5 mEq/L (22-28); Base Excess (BEa) -11.5 mEq/L (-2.0 to +3.0); Calcium, Ionized (arterial) 1.05 mmol/L (1.12-1.30); Hemoglobin (Hb) 12.8 g/dL (14.0-18.0); O2 Tension (PaO2), arterial 87.4 mmHg (80.0-100.0); Potassium - ABG Lab 3.02 mmol/L (3.70-5.30); pH, Arterial 7.37 (7.35-7.45)
[2020-02-01 01:58] LABS: CO2 Tension 20.2 mmHg (35.0-45.0); Puncture Site LBA
[2020-02-01 02:04] LABS: PTT 45.8 sec (22.9-36.1)
[2020-02-01 02:10] LABS: Hemoglobin 12.4 g/dL (14.0-18.0); INR-International Normal Ratio 3.1; Mean Corpuscular HGB CONC 32.6 g/dL (32.0-36.0); Mean Corpuscular Hemoglobin 31.6 pg (27.0-31.0); Mean Corpuscular Volume 96.8 fL (78.0-98.0); Platelet Count 197 thou/uL (130-400); RBC Distribution Width 17.9 % (11.5-14.5); Red Blood Cell (RBC) Count 3.93 mill/uL (4.70-6.10); White Blood Cell (WBC) Count 20.4 thou/uL (4.8-10.8)
[2020-02-01 02:24] LABS: Troponin I 0.128 ng/mL (< 0.028)
[2020-02-01 02:25] LABS: ALT (SGPT) 23 U/L (8-55); AST (SGOT) 47 U/L (5-34); Albumin 2.5 g/dL (3.5-5.0); Alkaline Phosphatase 123 U/L (40-110); Anion Gap 23 mmol/L (10-20); BUN (Urea Nitrogen) 21 mg/dL (8.9-20.6); Bilirubin, Direct 2.9 mg/dL (0.1-0.3); Bilirubin, Total 5.2 mg/dL (0.2-1.2); Calc. Creatinine Clearance 0 mL/min (70-130); Calcium 7.3 mg/dL (7.8-10.44); Carbon Dioxide 12 mmol/L (22-29); Chloride 104 mmol/L (98-107); Estimated GFR-MDRD 55; Glucose 78 mg/dL (70-105); Magnesium 1.5 mg/dL (1.6-2.6); Protein, Total 4.6 g/dL (6.0-8.3); Sodium 136 mmol/L (136-145)
[2020-02-01 02:28] LABS: Band 36 % (5-11); Hypochromia SLIGHT = 6-15 cells (100X) (0-5/hpf); Lymphocytes 2 % (21-51); MDiff Complete? YES; Monocytes 6 % (0-10); Neutrophil 56 % (42-75); Platelet Morphology Comment Appears Adequate
[2020-02-01] MEDS: metroNIDAZOLE 500 MG in Premix Bag 1 BAG IVPB SCH ×3 (02:51→15:24)
[2020-02-01] MEDS: Albumin 25% 25 GM/100 ML BOT IVPB SCH ×4 (02:53→17:09)
[2020-02-01] MEDS: Lorazepam 2 MG/ML VIAL SLOW IVP PRN ×2 (03:02→18:26)
[2020-02-01 03:17] LABS: Bacteria/HPF None Seen HPF (None Seen); Bilirubin Negative (Negative); Blood, Urine 3+ (Negative); Clarity Turbid (Clear); Glucose, Urine (Dipstick) 70 mg/dL (Negative); Ketone, Urine Negative (Negative); Leukocyte Negative Leu/uL (Negative); Nitrite Negative (Negative); Protein, Urine (Dipstick) 300 mg/dL (Neg-Trace); RBC/HPF Greater than 50 HPF (0-3); Specific Gravity, Urine 1.016 (1.002-1.036); Urobilinogen Normal mg/dL (Less than 2); WBC/HPF 21-50 HPF (0-3); pH, Urine 6.5 (5.0-9.0)
[2020-02-01 03:18] LABS: Sperm/HPF 1+ HPF (None Seen)
[2020-02-01 03:19] LABS: Phosphorus 4.5 mg/dL (2.3-4.7)
[2020-02-01 03:21] LABS: Amphetamine Not Detected (NotDetected); Barbiturates Screen Not Detected (NotDetected); Benzodiazepine Screen Not Detected (NotDetected); Cocaine Metabolite Screen Not Detected (NotDetected); Medtox Control Line Valid? VALID (VALID); Medtox Reader # READER 1; Methadone Not Detected (NotDetected); Methamphetamine Not Detected (NotDetected); Opiate Screen Not Detected (NotDetected); Oxycodone Screen Not Detected (NotDetected); Phencyclidine (PCP) Not Detected (NotDetected); THC/Cannabinoid Screen Not Detected (NotDetected); Tricyclic Screen Not Detected (NotDetected)
[2020-02-01] MEDS ORDERED: Magnesium 2 GM/50 ML 2 GM in Premix Bag 1 BAG IVPB SCH (04:00)
[2020-02-01] MEDS ORDERED: Potassium Chloride 40 MEQ in Premix Bag 1 BAG IVPB SCH (04:00)
[2020-02-01 05:31] LABS: Troponin I 0.237 ng/mL (< 0.028)
[2020-02-01] MEDS: Pantoprazole 80 MG in Sodium Chloride 0.9% 100 ML IVPB SCH ×2 (07:05→17:11)
[2020-02-01] MEDS ORDERED: Sodium Chloride 0.9% 1,000 ML IV SCH (07:30)
[2020-02-01] MEDS: fentaNYL Citrate/PF 2,000 MCG in Sodium Chloride 0.9% 60 ML IV SCH (07:40)
--- NOTE | 2020-02-01 07:47 | RAD ---
EXAM: CHEST ONE VIEW HISTORY: Central line placement. Follow-up evaluation. COMPARISON: 01/31/2020 FINDINGS: Endotracheal tube and nasogastric tubes remain in place. There has been interval placement of left lechuga bclavian central venous catheter with the tip overlying the distal SVC. No pneumothorax is seen. Bronchovascular markings and cardiac silhouette are accentuated due to shallow depth inspiration. The re is elevation of the right hemidiaphragm. There is patchy parenchymal opacity seen in the retrocardiac region left lung base which could be related to atelectasis versus pneumonia. Questionab le minimal patchy density seen at the right lung base as well, but this is limited due to elevated right hemidiaphragm. Mild increase in interstitial densities on the left are present. No other interv al change. IMPRESSION: 1. Interval placement of left subclavian central venous catheter without evidence of a pneumothorax. Remaining lines and tubes are stable in position. 2. Patchy parenchymal density left lung base with mild increase in left perihilar interstitial opacit ies compared to right. Findings are worrisome for infectious process/pneumonia. Follow-up to complete resolution is recommended. 3. Suboptimal evaluation left lung base with questionable patchy density at the right lung base.
[2020-02-01 08:11] LABS: Actual Bicarbonate (HCO3a) 13.3 mEq/L (22-28); Base Excess (BEa) -11.1 mEq/L (-2.0 to +3.0); CO2 Tension 26.3 mmHg (35.0-45.0); Calcium, Ionized (arterial) 1.01 mmol/L (1.12-1.30); Carboxyhemoglobin (COHb) 0.8 gm% (0.0-3.0); Hemoglobin (Hb) 12.1 g/dL (14.0-18.0); O2 Tension (PaO2), arterial 70.3 mmHg (80.0-100.0); Potassium - ABG Lab 3.75 mmol/L (3.70-5.30); pH, Arterial 7.32 (7.35-7.45)
--- NOTE | 2020-02-01 08:12 | CT ---
PRELIMINARY REPORT/[facility]/EMERGENCY AFTER HOURS PROCEDURE EXAM: CTA Chest with Intravenous Contrast CLINICAL HISTORY: PT IS A CODE 3 ACTIVATION; AMS; POSS GI BLEED; SYNCOPE; HYPOTENSION; MELENA; KNOWN PE TECHNIQUE: Axial CTA images of the chest with intravenous contrast. Three-dimensional MIP/volume rendered reform ations were performed. CONTRAST: With; ISOVUE 370, 70ml COMPARISON: CT\SR - CTA ANGIO CHEST W WO CON - 01/20/2020 12:42 PM CDT FINDINGS: On the current study there is high diaphragm position. The pulmonary arterial tree is adeq uately opacified. No filling defect or cutoff is seen on today's images, through the lobar and segmental pulmonary vasculature. Distal to this, detail is poor. The thoracic aorta is intact and normal in caliber. Mediastinal and hilar lymph nodes are within nor mal limits in size. Endotracheal and nasogastric tubes are in place. The central airways are patent. Consolidated opacity is present in both lungs, especially posteriorly in both lung bases. Most of th is is likely atelectasis. No pleural fluid is seen on either side. Heart is grossly normal in size. IMPRESSION: 1. There is very high diaphragm position on this exam. This partially obscures detail. 2. No pulmonary embolism is identified on today's images through the segmental pulmonary vessels. D etailed distal to this is suboptimal. 3. Consolidation is present in both lungs, mostly in the bases. This is increased from last exam an d could represent atelectasis. However, a component of active pneumonia cannot be excluded. ELECTRONICALLY SIGNED BY: Richardson Morris MD Feb 01, 2020 2:20:31 AM CDT This report is intended for review by the ordering physician only, in accordance of law. If you recei ve this report in error, please call [facility] at [phone]. FINAL REPORT EMERGENT AFTER HOURS CT ANGIOGRAM THORAX WITH IV CONTRAST AND 3D RECONSTRUCTIONS: HISTORY: Hypotension, known pulmonary embolus. Altered mental status. Syncope and melena. COMPARISON: 01/20/2020. IMPRESSION: 1. Endotracheal tube in place just above the beth. Nasogastric tube is seen coursing into the stoma ch, tip is not imaged. 2. No filling defects are seen in the central or segmental pulmonary arteries to suggest a pulmonary embolus. Subsegmental pulmonary arteries are not well opacified and limited due to artifact and motion. A left lower lobe subsegmental pulmonary embolus was seen on the prior exam, but this is not definitely visualized on today's examination. The subsegmental pulmonary arteries are less well evaluated on the current exam. 3. Bibasilar areas of consolidation which has increased from prior study. Findings may be related to worsening bibasilar atelectasis, but consolidation related to pneumonia is a possibility. 4. Several small subcentimeter mediastinal lymph nodes are seen predominantly in a right paratracheal location which are increased in number with largest lymph node measuring 1.3 cm in short axis dimension which is mildly enlarged. 5. Interval development of edema within the adipose soft tissues in each supraclavicular region and i n the visualized lower neck and surrounding the thyroid gland. There is also mild stranding and suggested minimal edema in the mediastinum in the region of the increased number of lymph nodes. Exac t etiology is uncertain. 6. Partial visualization of a large amount of ascites. 7. Prominent elevation right hemidiaphragm. Findings are in agreement with preliminary report by [facility]. Transcribed Date/Time: 02/01/2020 8:28 AM
[2020-02-01 08:13] LABS: Puncture Site RBRACH
[2020-02-01 08:14] LABS: ALV-art Gradient 253.325 mmHg (0-20)
--- NOTE | 2020-02-01 08:38 | CT ---
PRELIMINARY REPORT/[facility]/EMERGENCY AFTER HOURS PROCEDURE: CT abdomen and pelvis with contrast: Comparison: 01/08/2020 Findings: Patchy density in both lung bases. Normal-appearing gastric tube terminating in the distal stomach. Nodular liver. No hydronephrosis or symptomatic urinary calculus. Gallbladder wall thickening. No stones identified. The gallbladder is poorly visualized. No biliary o bstruction. Atherosclerosis. No aneurysm. This is not a dedicated angiographic study. Catheter in the right femor al vein extending into the right common iliac vein. No bowel obstruction, free air or suggestion of d iverticulitis. Large volume ascites and lack of bowel contrast limits evaluation of the bowel. Wall t hickening of the colon. The colon is mostly collapsed and is suboptimally evaluated. The urinary bladder is collapsed around a Hernandez catheter. The solid organs and vasculature are otherwise normal. Impression: Increased large volume ascites. There may be liver disease. Correlate clinically. Possible nonspecifi c colitis. The colon is fluid-filled which may be associated with hypersecretion or malabsorption. Increased patchy opacity in the lung bases may be atelectasis or pneumonia. ELECTRONICALLY SIGNED BY: Gildardo Hearn MD Feb 01, 2020 1:55:16 AM CDT This report is intended for review by the ordering physician only, in accordance of law. If you recei ve this report in error, please call [facility] at [phone]. FINAL REPORT CT ABDOMEN AND PELVIS: Images through the lung bases show bibasilar atelectasis and/or infiltrates. Moderate volume ascites. Nonspecific bowel wall thickening which may be secondary to the ascites. I am in agreement with the preliminary report. POS: DARY
--- NOTE | 2020-02-01 08:39 | CT ---
PRELIMINARY REPORT/[facility]/EMERGENCY AFTER HOURS PROCEDURE: EXAM: CT Head Without Intravenous Contrast. CLINICAL HISTORY: PT IS A CODE 3 ACTIVATION; AMS; POSS GI BLEED; SYNCOPE; HYPOTENSION; MELENA; KNOWN PE TECHNIQUE: Axial computed tomography images of the head/brain without intravenous contrast. COMPARISON: None provided. FINDINGS: Ventricles and subarachnoid spaces are normal. No abnormal areas of attenuation are seen i n the brain parenchyma. No mass-effect or evidence of acute intracranial hemorrhage is seen. ET and NG tubes are in place. On bone windows, no acute osseous abnormality is seen. IMPRESSION: Essentially negative unenhanced CT of the head. ELECTRONICALLY SIGNED BY: Richardson Morris MD Feb 01, 2020 1:43:00 AM CDT This report is intended for review by the ordering physician only, in accordance of law. If you recei ve this report in error, please call [facility] at [phone]. FINAL REPORT CT BRAIN WITHOUT CONTRAST: I agree with the preliminary report given by Dr. Richardson Morris of [facility]. POS: OFF
[2020-02-01] MEDS ORDERED: Pantoprazole 40 MG VIAL IVP SCH (09:00)
[2020-02-01] MEDS ORDERED: Phytonadione 10 MG in Sodium Chloride 0.9% 50 ML IVPB SCH (09:00)
[2020-02-01] MEDS: Vasopressin 20 UNIT, Admixture Fee 1 EACH in Sodium Chloride 0.9% 50 ML IV SCH ×2 (09:40→15:58)
[2020-02-01] MEDS: Sodium Bicarbonate 140 MEQ in Dextrose 5% in Water 1,000 ML IV SCH (09:54)
--- NOTE | 2020-02-01 10:34 | PDOC.PALCO ---
Palliative Care Consult - Consult Details Requesting Physician: Dr Lang Reason for Consult: goals of care, assistance with communication prognosis/disease, family support, complex decision-making - Pertinent HPI 39 year old male who is well known to the Palliative Care team. He resides in a private home setting with his mother. He was discharged 01/21/2020 to the home setting with home health to facilitate PT, used [facility]. Mother denies any known alcohol use at home. Mother also reports that since discharge he has had episodes of incontinence of bowel, poor appetite eating only half a sandwich on occasion. Mother reports that yesterday Silvio experienced a bloody/tarry stool with hematemesis. He was taken by EMS to [facility] where he was hypotensive where he was placed on vasopressors, intubated, and flown via [facility]. Admitted to CCU, has been given blood products. Remains with pressure support, intubated. 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 Last hospital stay his colitis was found to be in remission and immunotherapy was halted. - Social History Smoking Status: Never smoker Smoking: dip Alcohol Use: heavy, other (Reports no alcohol intake since prior to last admission) Drug Use History: none Living Situation: other (Lives with his mother) - Medications MAR Reviewed: Yes - Allergies Allergies/Adverse Reactions: Allergies Allergy/AdvReac Type Severity Reaction Status Date / Time No Known Allergies Allergy Verified 01/08/20 21:49 - Subjective Intubated, opens eyes. Blood from NG to suction. - ROS Non Response: due to endotracheal tube, due to mental status - Objective Vital Signs: Vital Signs - Most Recent Temp Pulse Resp BP Pulse Ox 98.2 F 115 H 25 H 112/93 H 97 02/01/20 10:26 02/01/20 10:26 02/01/20 10:26 02/01/20 10:26 02/01/20 10:26 Palliative Performance Scale: 30 - Physical Exam Constitutional: ill appearing HEENT: EOMI, moist MMs, scleral icterus Respiratory: diminished lung sound Deviation from normal: mechanical ventilation/ronchi Cardiovascular: RRR Gastrointestinal: soft Deviation from normal: Obese, ascites Genitourinary: calderon catheter Musculoskeletal: edema present Neurology: moves all 4 limbs, no focal deficits Skin: cap refill <2 seconds - Problem List (1) Acute respiratory failure with hypoxia Code(s): J96.01 - ACUTE RESPIRATORY FAILURE WITH HYPOXIA Current Visit: Yes Status: Acute (2) Hepatic encephalopathy Code(s): K72.90 - HEPATIC FAILURE, UNSPECIFIED WITHOUT COMA Current Visit: Yes Status: Acute (3) Sepsis Code(s): A41.9 - SEPSIS, UNSPECIFIED ORGANISM Current Visit: Yes Status: Acute Qualifiers: Sepsis type: sepsis due to unspecified organism Sepsis acute organ dysfunction status: with acute organ dysfunction Severe sepsis acute organ dysfunction type: acute liver failure Severe sepsis shock status: with septic shock (4) Cirrhosis Code(s): K74.60 - UNSPECIFIED CIRRHOSIS OF LIVER Current Visit: Yes Status: Chronic Qualifiers: Hepatic cirrhosis type: alcoholic cirrhosis Ascites presence: with ascites Qualified Code(s): K70.31 - Alcoholic cirrhosis of liver with ascites (5) Coagulopathy Current Visit: Yes Status: Chronic (6) GI bleed Code(s): K92.2 - GASTROINTESTINAL HEMORRHAGE, UNSPECIFIED Current Visit: Yes Status: Suspected (7) Palliative care encounter Code(s): Z51.5 - ENCOUNTER FOR PALLIATIVE CARE Current Visit: No Status: Acute - Plan/Recommendations Plan: Discussed with Dr Gonzales and Dr Reynolds. Has received PRBC 1 unit, and 3 unitls of plasma. He is on octreotide, protonix, and levophed as well as antibiotic therapy. MELD 27 TIGIST 52% mortality in one month Patient opens eyes and when asked if he has had alcohol intake since last admission he shakes his head no. His mother also states that she does not think that he has had any alcohol as he is too weak to get it. Discussed with mother gravity of illness. Reviewed indication of MELD and TIIGST and impact of liver failure. Palliative Care will continue to support Mother and patient, assisting with education in relation to disease process and trajectory. Will revisit Goal of Care after patient is extubated and able to better participate. [70] minutes spent on this encounter with >50% of the time in counseling and coordination of care. Thank you for this very appropriate consult.
[2020-02-01] MEDS: Hydrocortisone Sod Succ/PF 100 mg/2 ml Vial IVP SCH ×3 (11:31→20:54)
[2020-02-01 11:47] LABS: Hemoglobin 10.3 g/dL (14.0-18.0); Mean Corpuscular Hemoglobin 31.7 pg (27.0-31.0); Mean Platelet Volume 9.6 fL (7.4-10.4); Platelet Count 155 thou/uL (130-400); RBC Distribution Width 18.1 % (11.5-14.5); Red Blood Cell (RBC) Count 3.26 mill/uL (4.70-6.10)
[2020-02-01 11:51] LABS: INR-International Normal Ratio 2.6; Prothrombin Time 27.6 sec (12.0-14.7)
[2020-02-01] MEDS ORDERED: Vancomycin 1.5 GRAM/300 ML BAG 1.5 GM in Premix Bag 1 BAG IVPB SCH (12:00)
[2020-02-01 12:12] LABS: Anion Gap 20 mmol/L (10-20); BUN (Urea Nitrogen) 22 mg/dL (8.9-20.6); Calc. Creatinine Clearance 88 mL/min (70-130); Calcium 7.3 mg/dL (7.8-10.44); Carbon Dioxide 15 mmol/L (22-29); Chloride 105 mmol/L (98-107); Estimated GFR-MDRD 48; Glucose 105 mg/dL (70-105); Potassium 3.4 mmol/L (3.5-5.1); Sodium 137 mmol/L (136-145)
[2020-02-01 12:45] LABS: Band 43 % (5-11); Lymphocytes 5 % (21-51); MDiff Complete? YES; Metamyelocyte 5 % (0-0); Monocytes 4 % (0-10); Neutrophil 41 % (42-75); Platelet Morphology Comment Appears Adequate; Polychromasia SLIGHT = 2-3 cells (100X) (0-2/hpf); Reactive Lymphocytes 1 % (0-10); Schistocytes SLIGHT = 2-5 cells (100X) (0-1/hpf)
--- NOTE | 2020-02-01 13:25 | CON ---
DATE OF CONSULTATION: 02/01/2020 45 minutes of critical care time. REASON FOR CONSULTATION: Respiratory failure and hypotension. HISTORY OF PRESENT ILLNESS: The patient is a 39-year-old male, who presented to the emergency room via [facility] last night. He was hypotensive with pressures in the 40s systolic. He had two central lines placed. He was put on vasopressors. He was intubated. He has apparently been having melenic stools and hematemesis. He has been placed on octreotide and Protonix. A GI consult is pending. I saw this patient in the hospital not too long ago when he was here with hypotension that was thought secondary to ulcerative colitis; however, colonoscopy at that time was negative. PAST MEDICAL HISTORY: 1. Ulcerative colitis. 2. Iron deficiency anemia. 3. Gastroesophageal reflux disease. 4. 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 PAST SURGICAL HISTORY: Colonoscopy. ALLERGIES: NONE. SOCIAL HISTORY: Drinks heavily. Uses smokeless tobacco. MEDICATIONS: Prior to admission, not known. REVIEW OF SYSTEMS: Cannot be obtained at this time as the patient is intubated. PHYSICAL EXAMINATION: VITAL SIGNS: Temperature 98.1, pulse 114, blood pressure 93/61, O2 saturation 98%. The patient is currently on a norepinephrine drip at 50 mcg/minute. He is arousable, open his eyes. HEENT: Icteric sclerae. Oropharynx dry. NECK: No adenopathy or JVD. LUNGS: Coarse rhonchi. CARDIOVASCULAR: S1 and S2. Regular without murmur. ABDOMEN: Obese, soft. Ascites present. EXTREMITIES: No clubbing, cyanosis, or edema. He has a central line in his left groin and also in his left subclavian. IMAGING STUDIES: Chest x-ray shows elevated , ET tube in good position. LABORATORY DATA: White blood cell count 20.4, hematocrit 38.1, and platelet count 197. PH of 7.32, pCO2 of 26, pO2 of 70 on SIMV rate 20, tidal volume 500, PEEP 5, pressure support 10, FiO2 of 50%. Sodium 136, potassium 3, chloride 104, CO2 of 12, BUN 21, creatinine 1.4, glucose 78, lactate 10.8, total bilirubin 5.2. Ammonia level was 70. AST 47, ALT 23. INR is 3.1. Tox screen negative. ASSESSMENT: 1. thought secondary to volume loss from internal bleeding. 2. Cirrhosis. 3. Acute respiratory failure requiring mechanical ventilation. 4. Rule out sepsis - the patient probably on hydrocortisone during previous admission may be adrenally insufficient. PLAN: 1. Check cortisol. 2. Start hydrocortisone. 3. Continue vasopressors, add vasopressin. 4. Continue antibiotics. 5. Change IV fluids to bicarbonate drip. 6. GI consultation. 7. Probably need paracentesis prior to extubation. 8. Follow serial labs. 9. Protonix and octreotide drips. Job ID: [id number]
--- NOTE | 2020-02-01 13:35 | PDOC.HOSPP ---
- Subjective Encounter Date: 02/01/20 Encounter Time: 11:40 Subjective: is on vent awakens to touch, is on mild sedation - Objective Vital Signs & Weight: Vital Signs (12 hours) Temp Pulse Pulse Resp BP BP Pulse Ox 02/01/20 13:00 98.4 F 02/01/20 12:00 98.4 F 25 H 02/01/20 11:15 98.2 F 113 H 25 H 100/69 98 02/01/20 11:12 113 H 97/74 02/01/20 10:26 98.2 F 115 H 25 H 112/93 H 97 02/01/20 10:01 98.2 F 114 H 20 106/74 97 02/01/20 10:00 20 02/01/20 09:36 98.2 F 111 H 20 87/61 L 98 02/01/20 07:54 114 H 92/60 02/01/20 07:48 99 02/01/20 07:35 28 H 02/01/20 06:00 24 H 02/01/20 04:00 25 H 02/01/20 02:00 24 H 100 Weight Admit Weight 221 lb Weight 221 lb 9.033 oz Most Recent Monitor Data Heart Rate from ECG 118 NIBP 97/67 NIBP BP-Mean 74 Respiration from ECG 223 SpO2 93 I&O: 01/31/20 02/01/20 02/02/20 06:59 06:59 06:59 Intake Total 1246 1340 Output Total 125 104 Balance 1121 1236 Result Diagrams: 02/01/20 11:32 02/01/20 11:32 Additional Labs: Accuchecks 02/01/20 01/31/20 01/31/20 10:47 22:49 21:23 POC Glucose 85 53 L* 33 L* Hospitalist ROS - Medication Medications: Active Medications Generic Name Dose Route Start Last Admin Trade Name Freq PRN Reason Stop Dose Admin Albumin Human 25 gm 01/31/20 23:59 02/01/20 11:44 Albumin 25% 25 Gm/100 Ml Bot IVPB 02/01/20 18:01 25 gm Q6HR ABRAM Administration Hydrocortisone Sodium Succinate 100 mg 02/01/20 09:00 02/01/20 11:31 Hydrocortisone Sod Succ/Pf 100 Mg/2 Ml Vial IVP 100 mg Q6H ABRAM Administration Ceftriaxone Sodium 2 gm/ 100 mls @ 200 mls/hr 02/01/20 01:00 02/01/20 03:02 Sodium Chloride IVPB 100 mls Q24HR ABRAM Administration Metronidazole 500 mg/ Device 100 mls @ 100 mls/hr 01/31/20 23:59 02/01/20 07:30 IVPB 100 mls 0800,1600,2359 ABRAM Administration Norepinephrine Bitartrate 250 mls @ 0 mls/hr 01/31/20 23:37 02/01/20 01:48 Levophed IVPB 250 mls PRN PRN Administration To maintain MAP > 65 Protocol Titrate Fentanyl Citrate 2,000 mcg/ 100 mls @ 0 mls/hr 01/31/20 23:45 02/01/20 07:40 Sodium Chloride IV 03/01/20 23:45 100 mls INF ABRAM Administration Protocol Per Protocol Vancomycin HCl 1.5 gm/ Device 300 mls @ 200 mls/hr 02/01/20 12:00 02/01/20 11:36 IVPB 02/08/20 12:01 300 mls 1200,2359 ABRAM Administration Pantoprazole Sodium 80 mg/ 100 mls @ 10 mls/hr 02/01/20 05:00 02/01/20 07:05 Sodium Chloride IVPB 100 mls INF ABRAM Administration Sodium Bicarbonate 140 meq/ 1,140 mls @ 75 mls/hr 02/01/20 08:45 02/01/20 09:54 Dextrose/Water IV 1,140 mls .[id number] ABRAM Administration Vasopressin 20 unit/ 51 mls @ 0 mls/hr 02/01/20 09:30 02/01/20 09:40 Miscellaneous Medication 1 IV 51 mls each/ Sodium Chloride INF ABRAM Administration Protocol As Directed Lorazepam 2 mg 01/31/20 23:45 02/01/20 03:02 Lorazepam 2 Mg/Ml Vial SLOW IVP 03/01/20 23:45 2 mg Q1H PRN Administration Breakthrough agitation - Exam General Appearance: ill appearing Eye: PERRL, scleral icterus ENT: no oropharyngeal lesions, dry oral mucosa Neck: supple, no JVD Heart: RRR, no murmur Respiratory: no wheezes, no rales, rhonchi Gastrointestinal: soft, non-tender, normal bowel sounds, distended Extremities: no cyanosis, 1+ LE edema Neurological: cranial nerve grossly intact, no focal deficits Hosp A/P (1) GI bleed Code(s): K92.2 - GASTROINTESTINAL HEMORRHAGE, UNSPECIFIED Status: Suspected (2) Cirrhosis Code(s): K74.60 - UNSPECIFIED CIRRHOSIS OF LIVER Status: Chronic Qualifiers: Hepatic cirrhosis type: alcoholic cirrhosis Ascites presence: with ascites Qualified Code(s): K70.31 - Alcoholic cirrhosis of liver with ascites (3) Sepsis Code(s): A41.9 - SEPSIS, UNSPECIFIED ORGANISM Status: Acute Qualifiers: Sepsis type: sepsis due to unspecified organism Sepsis acute organ dysfunction status: with acute organ dysfunction Severe sepsis acute organ dysfunction type: acute liver failure Severe sepsis shock status: with septic shock (4) Hepatic encephalopathy Code(s): K72.90 - HEPATIC FAILURE, UNSPECIFIED WITHOUT COMA Status: Acute (5) Coagulopathy Status: Chronic (6) Acute respiratory failure with hypoxia Code(s): J96.01 - ACUTE RESPIRATORY FAILURE WITH HYPOXIA Status: Acute (7) Anemia due to acute blood loss Code(s): D62 - ACUTE POSTHEMORRHAGIC ANEMIA Status: Acute (8) Chronic alcohol use Code(s): Z72.89 - OTHER PROBLEMS RELATED TO LIFESTYLE Status: Chronic (9) Obesity (BMI 30.0-34.9) Code(s): E66.9 - OBESITY, UNSPECIFIED Status: Chronic (10) Ulcerative colitis Code(s): K51.90 - ULCERATIVE COLITIS, UNSPECIFIED, WITHOUT COMPLICATIONS Status: Chronic Qualifiers: Ulcerative colitis location: unspecified ulcerative colitis location Digestive disease complication type: without complication Qualified Code(s): K51.90 - Ulcerative colitis, unspecified, without complications - Plan has recieved total of 1 u prbc and 3 of plasma is on octreotide, protonix and levophed drips empiric ceftriaxone, flagyl and vanc, await cultures, has 36% bands with 20k wbc has high meld and kelly scores with poor prognosis and chronic alc abuse await GI opinion palliative care consultation for hospice
[2020-02-01] MEDS: Potassium Chloride 20 MEQ in Premix Bag 1 BAG IVPB SCH ×2 (14:04→15:56)
[2020-02-01 16:29] LABS: SARS-CoV-2 MS2 Positive; SARS-CoV-2 N Gene Negative; SARS-CoV-2 S Gene Negative; SARS-CoV-2 by NAA Not Detected (NotDetected); SARS-CoV-2 orf1ab Negative
[2020-02-01] MEDS: MEROPENEM 1 GM/50 ML 1 GM in Premix Bag 1 BAG IVPB SCH (17:09)
--- NOTE | 2020-02-01 18:33 | CON ---
DATE OF CONSULTATION: 02/01/2020 REQUESTING PHYSICIAN: Dr. Martinez. REASON FOR CONSULTATION: Possible GI bleeding. HISTORY OF PRESENT ILLNESS: Silvio Cesar is a 39-year-old man, who was readmitted to the hospital last night in shock. Notably, he had an extended hospitalization here for couple of weeks last month, was seen by the GI service at that time. He was seen by my partner, Dr. Gao, for chronic ulcerative colitis. He had previously been on azathioprine and Humira. He had presented with a similar picture of sepsis and dehydration in the context of severe chronic diarrhea. During that recent hospitalization, he actually underwent colonoscopy, which was actually normal exam except for pseudopolyps, but there was no evidence of active colitis and even the colon biopsies were normal. He was also noted to have cirrhosis and ascites that admission. Paracentesis was negative for SBP at that time. He was started on diuretics. He was discharged from the hospital about a week and a half ago. Evidently, since that time, he has remained very weak. He has had very poor appetite and oral intake. Still having tendency to diarrhea and dealing with persistent abdominal distention. Yesterday, he evidently had a syncopal episode while on the toilet. There are some conflicting reports that perhaps the bowel movement was black in color. At any rate, on EMS evaluation, he was very hypotensive. He received 1 unit of RBCs prior to arrival and another unit RBCs when he got here. He was found to be in shock as well as respiratory failure. He was started on 2 pressors, bicarb, octreotide, and Protonix. He was endotracheally intubated. He has gotten 4 units of FFP and 2 units of RBCs. Chest x-ray and CT imaging demonstrates bilateral lower lobe consolidation consistent with pneumonia versus atelectasis. He is on broad antibiotics. Paracentesis has been ordered, but my understanding is that Interventional Radiology is awaiting correction of coagulopathy. He remains borderline tachycardic and hypotensive, but is awake and able to answer questions appropriately. Notably since arrival, he does have some red bloody tinge coming out of his orogastric tube, but the amount has been very minimal since arrival only 100 mL. He has not had any melenic stools. REVIEW OF SYSTEMS: Unable to obtain full review of systems due to the patient is being intubated. PAST MEDICAL HISTORY: 1. Ulcerative colitis. 2. Diabetes. 3. Iron-deficiency anemia. 4. Hypertension. 5. Atrial fibrillation. 6. Chronic alcohol abuse. 7. Cirrhosis secondary to alcohol. 8. Ascites. 9. Pulmonary embolus diagnosed in December 2019, started on Eliquis. ALLERGIES: NO KNOWN DRUG ALLERGIES. MEDICATIONS: 1. Albumin 25 g IV q.6 hours. 2. Ceftriaxone 2 g IV q.24 hours. 3. Fentanyl drip. 4. Hydrocortisone 100 mg IV q.6 hours. 5. Ativan p.r.n. 6. Metronidazole 500 mg IV q.8 hours. 7. Levophed drip. 8. Octreotide drip. 9. Pantoprazole drip. 10. Sodium bicarbonate drip. 11. Vancomycin 1.5 g q.12 hours IV. 12. Vasopressin drip. SOCIAL HISTORY: The patient is currently living with his mother, evidently abuses alcohol, but he does deny drinking at all since his recent hospitalization. FAMILY HISTORY: Noncontributory. PHYSICAL EXAMINATION: VITAL SIGNS: Temperature 98.4, heart rate 109, blood pressure 91/66, 97% oxygen saturation on ventilator. GENERAL: Critically ill, 39-year-old man, intubated, tolerating ventilation well. MENTAL: He is alert. He is able to answer some questions appropriately yes or no. SKIN: No jaundice. EYES: No scleral icterus. Extraocular movements intact. ENT: Endotracheally intubated. Thyroid nontender to palpation. HEART: Regular. Tachycardia. LUNGS: Bilateral vent sounds. No wheezing appreciated. ABDOMEN: Distended with ascites, somewhat tense. Bowel sounds are present. Nontender to palpation. No guarding or rebound tenderness. EXTREMITIES: 2+ bilateral lower extremity edema. LABORATORY STUDIES: WBC 21.0, hemoglobin 10.3, platelets 155. INR 2.6. Sodium 137, potassium 3.4, BUN 22, creatinine 1.62, calcium 7.3. Troponin 0.237. TSH 16.4, free T4 is 1.56, cortisol 48.2. Lactic acid remains elevated at 10.8. Total bilirubin 5.2, direct bilirubin 2.9, alkaline phosphatase 123, AST 47, ALT 23. Ammonia only 70. Lipase only 36. IMAGING STUDIES: Chest x-ray showed cardiomegaly, diminished lung volumes, endotracheal tube and orogastric tube in place. CTA of the chest shows negative for pulmonary embolus. There is bilateral consolidation in both lungs, primarily in the bases, increased mediastinal lymphadenopathy. Brain CT showed no acute processes. CT of the abdomen and pelvis shows moderate volume ascites, nodularity of the liver, bilateral lower lung infiltrates, poor visualization of the gallbladder, but no evidence of biliary obstruction. The liver is nodular. ASSESSMENT AND PLAN: 1. Shock, probably represent sepsis, not hemorrhagic shock. The patient does have some fresh blood in his orogastric tube as well as some marginal hemoglobin decline since admission, but on the other hand, the output of overt bleeding is not that great, certainly not enough to explain the severity of his presentation. I agree with the Protonix and octreotide infusions for now, but clinically I doubt this represents significant active upper GI bleeding. He has evidence of pneumonia. He may have SBP, and agree with plan for diagnostic paracentesis. 2. Upper GI bleeding. Monitor output from the orogastric tube. I have asked the nurses to please call me if he has any melenic stool or any increase in overt blood output. Continue Protonix and octreotide infusions for now. We are not going to plan on any upper endoscopy right now. This will be considered later this admission once his clinical status has stabilized a bit. 3. Cirrhosis secondary to alcohol. 4. Ascites. Diagnostic paracentesis during recent admission showed no evidence of SBP. The patient reports he has not gone back to drinking alcohol. Certainly, peritonitis could have developed since his last hospitalization and is a possible source of sepsis. I agree with the plan for diagnostic paracentesis, already ordered. I understand Interventional Radiology is awaiting further reversal of his INR. He is currently getting FFP. 5. Ulcerative colitis, quiescent per recent colonoscopy. Colonoscopy last month actually showed no evidence of active colitis. He has been off his immunosuppression already. GI will follow along. Please call anytime with questions or concerns or updates in the patient's clinical status. Job ID: [id number]
[2020-02-01] MEDS ORDERED: FLU VACC QS2020-21(6MOS UP)/PF 60 MCG/0.5 ML SYRINGE IM ONE (21:00)
[2020-02-02] MEDS: MEROPENEM 1 GM/50 ML 1 GM in Premix Bag 1 BAG IVPB SCH ×3 (00:14→16:41)
[2020-02-02] MEDS: Pantoprazole 80 MG in Sodium Chloride 0.9% 100 ML IVPB SCH ×3 (00:15→22:44)
[2020-02-02] MEDS: Vasopressin 20 UNIT, Admixture Fee 1 EACH in Sodium Chloride 0.9% 50 ML IV SCH ×3 (00:15→16:43)
[2020-02-02] MEDS: Sodium Bicarbonate 140 MEQ in Dextrose 5% in Water 1,000 ML IV SCH ×3 (00:15→16:43)
[2020-02-02] MEDS: Hydrocortisone Sod Succ/PF 100 mg/2 ml Vial IVP SCH ×4 (03:12→20:24)
[2020-02-02] MEDS: Lorazepam 2 MG/ML VIAL SLOW IVP PRN ×3 (03:13→10:32)
[2020-02-02 04:16] LABS: ALT (SGPT) 43 U/L (8-55); AST (SGOT) 110 U/L (5-34); Albumin 3.2 g/dL (3.5-5.0); Alkaline Phosphatase 88 U/L (40-110); Anion Gap 23 mmol/L (10-20); BUN (Urea Nitrogen) 23 mg/dL (8.9-20.6); Bilirubin, Direct 2.6 mg/dL (0.1-0.3); Bilirubin, Total 3.4 mg/dL (0.2-1.2); Calc. Creatinine Clearance 69 mL/min (70-130); Calcium 7.4 mg/dL (7.8-10.44); Carbon Dioxide 17 mmol/L (22-29); Chloride 102 mmol/L (98-107); Estimated GFR-MDRD 36; Glucose 114 mg/dL (70-105); INR-International Normal Ratio 3.1; Magnesium 1.7 mg/dL (1.6-2.6); Potassium 4.3 mmol/L (3.5-5.1); Protein, Total 5.4 g/dL (6.0-8.3); Prothrombin Time 32.2 sec (12.0-14.7); Sodium 138 mmol/L (136-145)
[2020-02-02 04:59] LABS: Band 32 % (5-11); Eosinophils 1 % (0-10); Hemoglobin 10.1 g/dL (14.0-18.0); Lymphocytes 3 % (21-51); MDiff Complete? YES; Mean Corpuscular HGB CONC 32.9 g/dL (32.0-36.0); Mean Corpuscular Hemoglobin 31.8 pg (27.0-31.0); Mean Corpuscular Volume 96.6 fL (78.0-98.0); Mean Platelet Volume 10.5 fL (7.4-10.4); Monocytes 8 % (0-10); Neutrophil 56 % (42-75); Platelet Count 184 thou/uL (130-400); Platelet Morphology Comment Appears Adequate; RBC Distribution Width 18.3 % (11.5-14.5); Red Blood Cell (RBC) Count 3.19 mill/uL (4.70-6.10); White Blood Cell (WBC) Count 20.3 thou/uL (4.8-10.8)
[2020-02-02] MEDS: Norepinephrine 8 MG/0.9% NS 250 ML IVPB PRN ×2 (06:01→13:07)
[2020-02-02 06:54] LABS: Actual Bicarbonate (HCO3a) 16.9 mEq/L (22-28); Base Excess (BEa) -6.8 mEq/L (-2.0 to +3.0); CO2 Tension 28.2 mmHg (35.0-45.0); Calcium, Ionized (arterial) 0.96 mmol/L (1.12-1.30); Carboxyhemoglobin (COHb) 0.3 gm% (0.0-3.0); Hemoglobin (Hb) 10.8 g/dL (14.0-18.0); Potassium - ABG Lab 4.26 mmol/L (3.70-5.30)
[2020-02-02] MEDS ORDERED: Magnesium 2 GM/50 ML 2 GM in Premix Bag 1 BAG IVPB SCH (07:00)
[2020-02-02 07:29] LABS: Puncture Site LRA
[2020-02-02] MEDS: fentaNYL Citrate/PF 2,000 MCG in Sodium Chloride 0.9% 60 ML IV SCH (07:52)
[2020-02-02] MEDS ORDERED: Phytonadione 10 MG in Sodium Chloride 0.9% 50 ML IVPB SCH (08:00)
--- NOTE | 2020-02-02 08:22 | PRG ---
DATE OF SERVICE: 02/02/2020 35 minutes of critical care time. SUBJECTIVE: The patient remains intubated on mechanical ventilation. He will wake up and follow commands. OBJECTIVE: VITAL SIGNS: His temperature is 98.8, pulse 104, blood pressure 96/63. He is on a Levophed drip at mcg/minute. He is on a vasopressin drip at 0.4 units/minute. He is also receiving albumin infusions, octreotide infusion, and a bicarbonate drip. Last 24-hour intake was 5245 mL, output 316. HEENT: Unremarkable except for jaundice sclerae. NECK: No JVD. LUNGS: Diminished breath sounds at the bases. CARDIOVASCULAR: S1 and S2. Slightly tachycardic. ABDOMEN: Protuberant with ascites. EXTREMITIES: Edematous throughout. LABORATORY DATA: INR 3.1, PTT 32.2. White blood cell count 20.3, hematocrit 30.8, and platelet count 184. A pH of 7.40, pCO2 of 28, pO2 of 64 on SIMV rate of 20, tidal volume 500, PEEP 5, pressure support 10, FiO2 of 50%. Sodium 138, potassium 4.3, chloride 102, CO2 of 17, BUN 23, creatinine 2.0, and glucose 114. X-ray shows volume loss from ascites with elevated diaphragms. ASSESSMENT: 1. Acute respiratory failure, requiring mechanical ventilation. 2. Significant ascites. 3. Hemodynamic shock. 4. Cirrhosis. PLAN: 1. This patient is not weanable without a large volume paracentesis. Unfortunately, he is coagulopathic. He needs FFP and vitamin K, but this needs to be timed with the performance of paracentesis procedure or the infusion will otherwise be worthless. 2. Continue the antibiotics for presumed SBP. 3. Need to reduce the amount of fluids that he is getting because he is everything. 4. Consider initiating tube feeding soon. Job ID: [id number]
--- NOTE | 2020-02-02 08:34 | RAD ---
PORTABLE CHEST: HISTORY: Pneumonia followup with CCU followup. COMPARISON: 01/31/2020. FINDINGS: ET tube and NG tube remain in place. Poor inspiration similar to the prior study. Bibasilar infiltr ates and/or atelectasis with bilateral effusions. IMPRESSION: The appearance of the chest does not appear significantly changed from the prior study. POS: AGW
[2020-02-02] MEDS: Nystatin Powder 15 GM BOT TOP SCH ×2 (10:20→20:25)
[2020-02-02] MEDS ORDERED: Sodium Bicarbonate 2.5 MEQ/5 ML VIAL ONE (10:28)
[2020-02-02] MEDS ORDERED: Albumin 25% 25 GM/100 ML BOT IVPB SCH (12:15)
--- NOTE | 2020-02-02 12:52 | PQF ---
CLINICAL DOCUMENTATION CLARIFICATION FORM: Dear Dr. MYRANDA MCMAHON Date: 02-02-20 Please exercise your independent, professional judgment in responding to the clarification form. Clinical indicators are provided on the bottom of this form for your review. Please check appropriate box(es): [ x ] Acute Renal Failure (ARF) / Acute Kidney Injury (DAE) [ ] Insignificant Lab Values [ ] Other diagnosis [ ] Unable to determine In addition, please specify: Present in Admission (POA): [ x ] Yes [ ] No [ ] Unable to determine For continuity of documentation, please document condition throughout progress notes and discharge summary. Thank You. To be completed by CDI/Coding staff for physician review: CLINICAL INDICATORS - SIGNS / SYMPTOMS / LABS / RESULTS AND LOCATION IN MR: GFR; 01-31-20: 58 02-01-20: 55, 48 02-02-20: 36 CREATININE: 01-31-20: 1.38 02-01-20: 1.43, 1.62 02-02-20: 2.06 BUN: 02-01-20: 21, 22 02-02-20: 23 RISK FACTORS / RESULTS AND LOCATION IN MR: H&P: 01-31-20: SHOCK-SUSPECT SEPTIC SHOCK, THOUGH HYPOVOLEMIC SHOCK POSSIBLE IF GI BLEED DEVELOPING, ANEMIA-POSSIBLY ANEMIA OF BLOOD LOSS TREATMENTS / RESULTS AND LOCATION IN MR: ER NOTES 01-28-20: NS IVF MONITORING LABS 01-31-20 TO 02-02-20 National Kid[employer] Guidelines for CKD Staging Stage I Kidney damage with normal or increased GFR GFR > 90 Stage II Kidney damage with mildly decreased GFR GFR 60-89 Stage III Kidney damage with moderately decreased GFR GFR 30-59 Stage IV Kidney damage with severely decreased GFR GFR 16-29 Stage V Kidney failure GFR<15 ESRD End Stage Renal Disease On dialysis Acute Renal Failure/Acute Kidney Failure defined as: Increases in SCr by (>) 0.3 mg/dl within 48 hours OR- Increases in SCr by (>) 1.5 times baseline, known or presumed to have occurred within the prior 7 days OR- Urine volume < 0.5 ml/kg/hour for 6 hours (KDIGO supplement 2012 for RIFLE/MOHINI criteria) CDS Signature: Alejandra Pura Phone #: [phone] Date: 02-02-20 This is a permanent part of the Medical Record [facility]
--- NOTE | 2020-02-02 12:58 | PRG ---
DATE OF SERVICE: 02/02/2020 SUBJECTIVE: Mr. Cesar is sedated on the vent. He did receive a dose of Ativan today. OBJECTIVE: VITAL SIGNS: Temperature is 97.9, blood pressure 89/62, pulse 81. GENERAL: He is sedated. No acute distress. He is on the ventilator with endotracheal tube in place. LUNGS: Clear to auscultation bilaterally. HEART: Regular rate and rhythm. S1, S2, S3. ABDOMEN: Soft, nontender, nondistended. Bowel sounds are present. EXTREMITIES: 1+ lower extremity edema. He did just receive 4 L paracentesis today. LABORATORY DATA: White blood cell count 20.3, hemoglobin 10.1, platelets 184. INR 3.1. Creatinine 2.06. Bilirubin 3.4, AST 110, ALT 43, alkaline phosphatase 88, albumin 3.2. IMPRESSION: 1. End-stage liver disease with worsening decompensation with increasing INR and elevated bilirubin and increasing creatinine. 2. Acute renal failure. 3. Septic shock, on multiple pressors. 4. Ascites. He received paracentesis today to potentially help with ventilation. He will receive IV albumin and fluid studies will be sent to evaluate for SBP. 5. Ulcerative colitis, on multiple immunosuppressives which are currently held. This was in remission by most recent testing. RECOMMENDATIONS: 1. He remains on broad-spectrum antibiotics. 2. Await fluid studies from his paracentesis. 3. He is receiving supportive care with multiple pressors. 4. Albumin IV. 5. He is showing no signs of overt bleeding. Octreotide can be discontinued. Job ID: [id number]
[2020-02-02 13:12] LABS: RBC Count-Automated (BF) 120 /cu.mm; WBC/Nucleated-Auto (BF) 186 uL
[2020-02-02 13:13] LABS: BF Color Yellow; Body Fluid Source Ascites Body Fluid; Clarity Hazy (Clear); Tube # EDTA
--- NOTE | 2020-02-02 13:34 | PDOC.HOSPP ---
- Subjective Encounter Date: 02/02/20 Encounter Time: 13:00 Subjective: is on vent, sedated - Objective Vital Signs & Weight: Vital Signs (12 hours) Temp Pulse Resp BP Pulse Ox 02/02/20 12:00 97.9 F 81 20 87/61 L 94 L 02/02/20 09:58 20 02/02/20 07:44 20 02/02/20 07:28 93 L 02/02/20 06:00 20 02/02/20 04:00 20 02/02/20 02:00 20 Weight Admit Weight 221 lb Weight 234 lb 9.149 oz Most Recent Monitor Data Heart Rate from ECG 82 NIBP 85/56 NIBP BP-Mean 65 Respiration from ECG 18 SpO2 92 I&O: 02/01/20 02/02/20 02/03/20 06:59 06:59 06:59 Intake Total 1246 5245.2 1225 Output Total 321 615 9542 Balance 1121 4929.2 -2820 Result Diagrams: 02/02/20 03:20 02/02/20 03:20 Additional Labs: Accuchecks 02/02/20 02/01/20 02/01/20 10:02 21:05 15:25 POC Glucose 103 H 115 H 98 Hospitalist ROS - Medication Medications: Active Medications Generic Name Dose Route Start Last Admin Trade Name Freq PRN Reason Stop Dose Admin Albumin Human 25 gm 02/02/20 12:15 02/02/20 12:25 Albumin 25% 25 Gm/100 Ml Bot IVPB 02/02/20 14:15 25 gm NOW ABRAM Administration Hydrocortisone Sodium Succinate 100 mg 02/01/20 09:00 02/02/20 08:10 Hydrocortisone Sod Succ/Pf 100 Mg/2 Ml Vial IVP 100 mg Q6H ABRAM Administration Norepinephrine Bitartrate 250 mls @ 0 mls/hr 01/31/20 23:37 02/02/20 13:07 Levophed IVPB 250 mls PRN PRN Administration To maintain MAP > 65 Protocol Titrate Fentanyl Citrate 2,000 mcg/ 100 mls @ 0 mls/hr 01/31/20 23:45 02/02/20 07:52 Sodium Chloride IV 03/01/20 23:45 100 mls INF ABRAM Administration Protocol Per Protocol Pantoprazole Sodium 80 mg/ 100 mls @ 10 mls/hr 02/01/20 05:00 02/02/20 12:24 Sodium Chloride IVPB 100 mls INF ABRAM Administration Vasopressin 20 unit/ 51 mls @ 0 mls/hr 02/01/20 09:30 02/02/20 08:57 Miscellaneous Medication 1 IV 51 mls each/ Sodium Chloride INF ABRAM Administration Protocol As Directed Meropenem 1 gm/ Device 50 mls @ 100 mls/hr 02/01/20 17:00 02/02/20 08:10 IVPB 50 mls 0100,0900,1700 ABRAM Administration Sodium Bicarbonate 140 meq/ 1,140 mls @ 50 mls/hr 02/02/20 07:56 02/02/20 08:15 Dextrose/Water IV 1,140 mls .[id number] ABRAM Administration Lorazepam 2 mg 01/31/20 23:45 02/02/20 10:32 Lorazepam 2 Mg/Ml Vial SLOW IVP 03/01/20 23:45 2 mg Q1H PRN Administration Breakthrough agitation Nystatin 0 gm 02/02/20 09:00 02/02/20 10:20 Nystatin Powder 15 Gm Bot TOP 1 applic BID ABRAM Administration - Exam General Appearance: ill appearing Eye: anicteric sclera, scleral icterus ENT: no oropharyngeal lesions, dry oral mucosa Neck: supple, no JVD Heart: RRR, no murmur Respiratory: no wheezes, rales, rhonchi Gastrointestinal: soft, normal bowel sounds, no rigidity, distended Extremities: no cyanosis, 1+ LE edema Neurological: cranial nerve grossly intact, no focal deficits Hosp A/P (1) Septic shock Code(s): A41.9 - SEPSIS, UNSPECIFIED ORGANISM; R65.21 - SEVERE SEPSIS WITH SEPTIC SHOCK Status: Acute (2) Sepsis Code(s): A41.9 - SEPSIS, UNSPECIFIED ORGANISM Status: Acute Qualifiers: Sepsis type: sepsis due to unspecified organism Sepsis acute organ dysfunction status: with acute organ dysfunction Severe sepsis acute organ dysfunction type: acute liver failure Severe sepsis shock status: with septic shock (3) GI bleed Code(s): K92.2 - GASTROINTESTINAL HEMORRHAGE, UNSPECIFIED Status: Suspected (4) Cirrhosis Code(s): K74.60 - UNSPECIFIED CIRRHOSIS OF LIVER Status: Chronic Qualifiers: Hepatic cirrhosis type: alcoholic cirrhosis Ascites presence: with ascites Qualified Code(s): K70.31 - Alcoholic cirrhosis of liver with ascites (5) Hepatic encephalopathy Code(s): K72.90 - HEPATIC FAILURE, UNSPECIFIED WITHOUT COMA Status: Acute (6) Coagulopathy Status: Chronic (7) Acute respiratory failure with hypoxia Code(s): J96.01 - ACUTE RESPIRATORY FAILURE WITH HYPOXIA Status: Acute (8) Anemia due to acute blood loss Code(s): D62 - ACUTE POSTHEMORRHAGIC ANEMIA Status: Acute (9) Chronic alcohol use Code(s): Z72.89 - OTHER PROBLEMS RELATED TO LIFESTYLE Status: Chronic (10) Obesity (BMI 30.0-34.9) Code(s): E66.9 - OBESITY, UNSPECIFIED Status: Chronic (11) Ulcerative colitis Code(s): K51.90 - ULCERATIVE COLITIS, UNSPECIFIED, WITHOUT COMPLICATIONS Status: Chronic Qualifiers: Ulcerative colitis location: unspecified ulcerative colitis location Digestive disease complication type: without complication Qualified Code(s): K51.90 - Ulcerative colitis, unspecified, without complications (12) Bacteremia Code(s): R78.81 - BACTEREMIA Status: Acute - Plan has recieved total of 1 u prbc, 8 of FFP's and 3 of plasma is on octreotide taper, protonix, levophed and vasopressin drips on meropenem, await full sensitivities for e.coli, has 32% bands with 20k wbc has high meld and kelly scores with poor prognosis and chronic alc abuse palliative care consultation for hospice will have paracentesis with fluid counts and chemistry today
[2020-02-02 14:14] LABS: BF Segmented Neutrophils 71 %; Cell Count Non Hematic 20 %; Lymphocytes 9 %
--- NOTE | 2020-02-02 14:19 | CON ---
DATE OF CONSULTATION: 02/01/2020 REASON FOR CONSULTATION: Sepsis. HISTORY OF PRESENT ILLNESS: A 39-year-old, who has a history of alcoholism and ulcerative colitis. In January of 2018, he was admitted with a flare of ulcerative colitis and paroxysmal atrial fibrillation. He required a 7 units of blood transfusion during that stay, as well as corticosteroids. Then in December 2019, he came in with acute metabolic encephalopathy, severe diarrhea due to ulcerative colitis exacerbation. He was admitted to the ICU for a while, was given vasopressors. Underwent colonoscopy. Colonoscopy did not show any signs of acute or active colitis. There was a stricture in the descending colon, which appeared benign. No evidence of malignancy. His altered mental status was felt to be due to alcohol intoxication. This is a second visit, I saw him actually just a few weeks ago and impression was longstanding ulcerative colitis on intermittent corticosteroid and mesalamine with less than optimal control and acute onset of sepsis with violaceous lesion with concern for opportunistic infectious process. At that time, multiple cultures did not yield any organism. His histoplasma antigen was negative and CMV DNA PCR was not quantifiable and QuantiFERON was indeterminate as expected. He had a paracentesis on January 10, which showed 329 wbc's. The patient was discharged on beta edmond, folic acid, and Eliquis for a few more days No other medications were given to him. So, he comes back now just a few weeks after the last discharge with altered mental state and hypotension. He had to be intubated in the field and he had black tarry stool. Whole blood was transfused and BP was on arrival was 41/33, pulse 115, respirations 22 with intubated in machine ventilator, O2 saturations are 100% on ventilator, and his temperature was 97.8, this is a core temp. He remained hypotensive throughout the stay in the emergency room. The exam showed no spontaneous movements. Dilated pupils minimally reactive. The abdomen was distended with evidence of ascites and lungs with clear breath sounds. Extremities are well perfused. Initial findings included a sodium 136, creatinine 1.38, glucose 89, bilirubin total 1.3, AST 43, albumin 2.0, globulin 2.2, and lipase 36. TSH was 16.4. Urinalysis with WBC count 21 to 50, protein 300. SARS-COV was not detected. Toxic screen negative, but I do not see any alcohol level here. The cortisol was 48. Currently, Mr. Cesar is intubated. His eyes are open. He nods when I ask questions to him. He seems to understand, where he is at and follows commands. PAST MEDICAL HISTORY: Includes ulcerative colitis with intermediate control, alcoholism, atrial fibrillation, anemia, type 2 diabetes, hypertension, blood transfusions, colonoscopies, recent episode of sepsis just a few weeks ago, intermittent prednisone and mesalamine. SOCIAL HISTORY: Drinks daily. The history of his drinking is kind of sketchy, there is not a lot of accuracy in his reporting of his EtOH intake. ALLERGIES: NONE. CURRENT MEDICATIONS: 1. Albumin. 2. DuoNeb. 3. Dulcolax. 4. Fentanyl. 5. Hydralazine. 6. Solu-Cortef. 7. Normodyne. 8. Levophed. 9. Octreotide. 10. Ondansetron. 11. Pantoprazole 80 mg constant infusion. 12. Meropenem. 13. Vasopressin. PHYSICAL EXAMINATION: VITAL SIGNS: T-max 98.4, blood pressure 101/66, heart rate 115, respiratory rate 17, and O2 saturation 94 now at FiO2 of 50. SKIN: He has an area of necrotic eschar in the back area, kind of rectangular-shaped, unstageable. Another area of bruising around the knee. Small ulcerations in the gluteal region and another one in the midline presacral region, very early stage. The patient has a groin central line and orotracheal intubation. HEENT: Sclerae are white. Pupils are constricted and his eye movements appear conjugate. LUNGS: With somewhat coarse breath sounds, but no crackles or wheezing. HEART: S1 and S2. Regular rate without murmurs. ABDOMEN: Distended with ascites. [id number] tender. He has a Hernandez catheter in place. His I's and O's are positive for the past few days. Urine output is at 159 thus far. LABORATORY STUDIES: White cell count is up from 7.5 to 21,000, hemoglobin 10.3, platelets 155 with 43% bands. INR is 2.6. Creatinine 1.38, GFR 58, AST 43, ALT 22, alkaline phosphatase 137, and albumin 2.0. Microbiology, we have one out of two sets of blood cultures with gram-negative masoud, the identification is pending. ASSESSMENT AND PLAN: 1. Ulcerative colitis on TNF inhibitor therapy, prednisone intermittently, and Imuran as well. 2. Recent episode of sepsis with negative cultures and negative workup for opportunistic pathogens. 3. Persistence of alcohol intake behavior. 4. Sepsis with evidence of ascites, possible spontaneous bacterial peritonitis with gram-negative masoud bacteremia. 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 He is fully aware and awake, follows commands and this seems to be a gastrointestinal source for this bacteremia. We will transition him to meropenem until final identification susceptibility profile of the organism to see the remainder antimicrobials, probably will need a paracentesis to rule out SBP and does not appear to be any other focal process at the moment. He does have some early atelectasis in the lung area, but I do not believe that he has enough evidence to suggest pneumonia, but will need to continue monitoring these processes. Job ID: [id number] SERENE
--- NOTE | 2020-02-02 15:30 | ULT ---
Ultrasound-guided paracentesis: HISTORY: Cirrhosis and large amount of ascites. FINDINGS: Informed consent obtained prior to the procedure. Preprocedural imaging demonstrated intrap eritoneal free fluid. An area was marked in the Right lower quadrant , and then meticulously prepped and draped in normal s terile fashion and anesthetized with 1% buffered lidocaine. With direct sonographic guidance, a 19-gauge needle and 5 [place] Voradiuseh catheter were advanced into the abdomen. After the return of fluid, the catheter was advanced, and the needle was removed. Approximately 4 L of clear straw-colored fluid was aspirated. The introducer sheath was removed, and hemostasis was achieved with direct pressure. A dry sterile dressing was placed. The patient tolerated the procedure well and without immediate complication. IMPRESSION: Technically successful ultrasound-guided paracentesis.
--- NOTE | 2020-02-02 17:06 | PRG ---
DATE OF SERVICE: 02/02/2020 SUBJECTIVE: Mr. Cesar intubated in the ICU, not much change. He had a paracentesis, 4 L was removed. The results of the analysis are discussed below. OBJECTIVE: VITAL SIGNS: He is afebrile, blood pressure 86/60, heart rate 82, saturating 94 with FiO2 of 50. GENERAL: He is sedated right now. HEENT: Constrictive pupils. LUNGS: Symmetric air entry. HEART: S1 and S2, regular rate. ABDOMEN: Less distended than yesterday. EXTREMITIES: Edema in lower extremities. LABORATORY DATA: White cell count 20.3, hemoglobin 10, platelets 184, and 32% bands. Creatinine 2.06, potassium 4.3, bilirubin 3.4, direct 2.6, AST 110, ALT 43, albumin 3.2. Paracentesis fluid with 186 wbc's with predominance of mature neutrophils of 71. E coli from one set of blood cultures. ASSESSMENT: Ulcerative colitis, on TNF inhibitor therapy, prednisone intermittently and Imuran as well. Recent episode of sepsis with negative cultures with improvement. Persistence of alcohol intake and sepsis, now recurrence with ascites and gram-negative masoud bacteremia due to Escherichia coli with possible extended-spectrum beta-lactamases phenotype, spontaneous bacterial peritonitis still within the realm of possibilities, although total number of white cells is not impressive, less concern with GEM SETTER infection. An alternate intraabdominal inflammatory process is not ruled out. Some early atelectasis in lung area, but unlikely that this represents a primary pneumonic process. Job ID: [id number]
--- NOTE | 2020-02-02 17:35 | PDOC.PALPN ---
Palliative Progress Note - Subjective Intubated with mechanical ventilation, sedated. - Objective Vital Signs: Vital Signs - Most Recent Temp Pulse Resp BP Pulse Ox 97.9 F 81 20 87/61 L 94 L 02/02/20 12:00 02/02/20 12:00 02/02/20 16:00 02/02/20 12:00 02/02/20 12:00 - Physical Exam Constitutional: encephalitic, ill appearing HEENT: moist MMs, scleral icterus Respiratory: no wheezing Deviation from normal: Mechanical ventilation Cardiovascular: RRR Deviation from normal: Distended Genitourinary: calderon catheter Musculoskeletal: edema present Deviation from normal: sedated Deviation from normal: icteric Deviation from normal: encephalopathic/sedated - Assessment (1) Acute respiratory failure with hypoxia Code(s): J96.01 - ACUTE RESPIRATORY FAILURE WITH HYPOXIA Current Visit: Yes Status: Acute (2) Hepatic encephalopathy Code(s): K72.90 - HEPATIC FAILURE, UNSPECIFIED WITHOUT COMA Current Visit: Yes Status: Acute (3) Sepsis Code(s): A41.9 - SEPSIS, UNSPECIFIED ORGANISM Current Visit: Yes Status: Acute Qualifiers: Sepsis type: sepsis due to unspecified organism Sepsis acute organ dysfunction status: with acute organ dysfunction Severe sepsis acute organ dysfunction type: acute liver failure Severe sepsis shock status: with septic shock (4) Cirrhosis Code(s): K74.60 - UNSPECIFIED CIRRHOSIS OF LIVER Current Visit: Yes Status: Chronic Qualifiers: Hepatic cirrhosis type: alcoholic cirrhosis Ascites presence: with ascites Qualified Code(s): K70.31 - Alcoholic cirrhosis of liver with ascites (5) Coagulopathy Current Visit: Yes Status: Chronic (6) GI bleed Code(s): K92.2 - GASTROINTESTINAL HEMORRHAGE, UNSPECIFIED Current Visit: Yes Status: Suspected (7) Palliative care encounter Code(s): Z51.5 - ENCOUNTER FOR PALLIATIVE CARE Current Visit: No Status: Acute - Plan Plan: Palliative care continues to offer support to mother as well as conversations in relation to disease trajectory and guarded prognosis related to severity of liver disease. Successful paracentesis with removal of 4 l today. Spiritual care consulted for family support. Communicated with Dr Gonzales, mother having difficult time grasping severity of illness and poor prognosis. Will continue to revisit resuscitation status and address goal of care Please also see Palliative Care notes in note section. [30] minutes spent on this encounter with >50% of the time in counseling and coordination of care. - ROS Non Response: due to endotracheal tube, due to mental status
[2020-02-02] MEDS: Albumin 25% 25 GM/100 ML BOT IVPB SCH ×2 (17:52→23:52)
[2020-02-02] MEDS: HumaLOG 300 UNITS/3 ML VIAL SC PRN (22:32)
[2020-02-03] MEDS: MEROPENEM 1 GM/50 ML 1 GM in Premix Bag 1 BAG IVPB SCH ×2 (00:08→09:37)
[2020-02-03] MEDS: Norepinephrine 8 MG/0.9% NS 250 ML IVPB PRN ×3 (00:14→20:05)
[2020-02-03] MEDS: Hydrocortisone Sod Succ/PF 100 mg/2 ml Vial IVP SCH ×4 (02:40→20:47)
[2020-02-03 06:31] LABS: Band 25 % (5-11); Hemoglobin 9.8 g/dL (14.0-18.0); Hypochromia SLIGHT = 6-15 cells (100X) (0-5/hpf); Lymphocytes 1 % (21-51); MDiff Complete? YES; Mean Corpuscular HGB CONC 32.3 g/dL (32.0-36.0); Mean Corpuscular Hemoglobin 31.5 pg (27.0-31.0); Mean Corpuscular Volume 97.5 fL (78.0-98.0); Mean Platelet Volume 11.2 fL (7.4-10.4); Monocytes 13 % (0-10); Neutrophil 61 % (42-75); Platelet Count 216 thou/uL (130-400); Platelet Morphology Comment Appears Adequate; RBC Distribution Width 18.5 % (11.5-14.5); Red Blood Cell (RBC) Count 3.11 mill/uL (4.70-6.10)
[2020-02-03 07:03] LABS: Actual Bicarbonate (HCO3a) 20.3 mEq/L (22-28); Base Excess (BEa) -2.5 mEq/L (-2.0 to +3.0); CO2 Tension 28.5 mmHg (35.0-45.0); Calcium, Ionized (arterial) 0.97 mmol/L (1.12-1.30); Carboxyhemoglobin (COHb) 0.3 gm% (0.0-3.0); Hemoglobin (Hb) 10.5 g/dL (14.0-18.0); O2 Tension (PaO2), arterial 63.8 mmHg (80.0-100.0); pH, Arterial 7.47 (7.35-7.45)
[2020-02-03 07:04] LABS: Puncture Site LRA
[2020-02-03 07:05] LABS: ALV-art Gradient 257.075 mmHg (0-20)
[2020-02-03 07:27] LABS: ALT (SGPT) 30 U/L (8-55); AST (SGOT) 68 U/L (5-34); Albumin 3.5 g/dL (3.5-5.0); Alkaline Phosphatase 73 U/L (40-110); Anion Gap 24 mmol/L (10-20); BUN (Urea Nitrogen) 26 mg/dL (8.9-20.6); Bilirubin, Direct 1.4 mg/dL (0.1-0.3); Calc. Creatinine Clearance 56 mL/min (70-130); Calcium 7.4 mg/dL (7.8-10.44); Carbon Dioxide 18 mmol/L (22-29); Chloride 100 mmol/L (98-107); Estimated GFR-MDRD 27; Glucose 210 mg/dL (70-105); Magnesium 2.1 mg/dL (1.6-2.6); Potassium 5.1 mmol/L (3.5-5.1); Protein, Total 6.1 g/dL (6.0-8.3); Sodium 137 mmol/L (136-145)
[2020-02-03] MEDS: Albumin 25% 25 GM/100 ML BOT IVPB SCH ×3 (07:40→20:46)
--- NOTE | 2020-02-03 07:55 | RAD ---
CHEST 1 VIEW: INDICATION: History of pneumonia. COMPARISON: Prior exam dated 02/02/2020. FINDINGS: The patient is intubated with left subclavian vascular congestion and gastric catheter in place. The re is cardiomegaly with pulmonary vascular congestion and mild central edema pattern. There are smal l bilateral pleural effusions. No pneumothorax is evident. IMPRESSION: Stable examination with fluid overload or congestive heart failure. POS: BH
[2020-02-03 08:16] LABS: Prothrombin Time 30.9 sec (12.0-14.7)
[2020-02-03 08:18] LABS: Elliptocytes SLIGHT = 2-5 cells (100X) (0-1/hpf); Large Platelets SLIGHT
[2020-02-03] MEDS ORDERED: Phytonadione 10 MG in Sodium Chloride 0.9% 50 ML IVPB SCH (08:45)
--- NOTE | 2020-02-03 09:02 | PRG ---
DATE OF SERVICE: 02/03/2020 This is 40 minutes of critical care time. SUBJECTIVE: Mr. Cesar remains intubated on mechanical ventilation. He is on several vasopressors. He did have a large volume paracentesis done yesterday, but it does not seem to have made a dent in the amount of volume he has in his abdomen. OBJECTIVE: VITAL SIGNS: His temperature is 99.5, pulse 84, blood pressure 118/80, O2 saturation running in the low 90s. HEENT: Unremarkable. NECK: No JVD. LUNGS: Diminished breath sounds at the bases. CARDIOVASCULAR: S1, S2. Regular. ABDOMEN: Fluid distended. EXTREMITIES: Edematous. LABORATORY DATA: Sodium 137, potassium 5.1, chloride 100, CO2 of 18, BUN 26, creatinine 2.6, glucose 210, AST 68, ALT 30, albumin 3.5. PH of 7.47, pCO2 28, pO2 of 63, on SIMV rate 20, tidal volume 500, PEEP 8, pressure support of 10, and FiO2 of 50%. INR is 3.0. White blood cell count 18, hematocrit 30, and platelet count 216. His x-ray continues to show diaphragmatic elevation on the right from the ascites. ET tube is in good position. Cultures are growing out E coli. ASSESSMENT: 1. Acute respiratory failure requiring mechanical ventilation. 2. End-stage cirrhosis with ascites that is compromising his pulmonary function. 3. Hemodynamic shock from gram-negative sepsis from E coli. 4. Hypertension is also related to his cirrhosis. 5. Developing renal failure with some hyperkalemia. PLAN: 1. The patient is not weanable at this time. I will adjust mechanical ventilation settings for his blood gas today. 2. He is continuing albumin infusions to help with his volume status since he looks he is at higher risk for hepatorenal syndrome. 3. I will cut the dose of the hydrocortisone. 4. Wean vasopressors as tolerated. 5. He will likely need more vitamin K. He will also likely need another large-volume paracentesis in the upcoming days to help facilitate extubation. This patient's prognosis is very poor for functional recovery and I agree with palliative consultation. Job ID: [id number]
[2020-02-03] MEDS: fentaNYL Citrate/PF 2,000 MCG in Sodium Chloride 0.9% 60 ML IV SCH (09:09)
[2020-02-03] MEDS: Metoclopramide HCl 10 MG/2 ML VIAL IVP SCH ×3 (09:43→20:47)
[2020-02-03] MEDS: Nystatin Powder 15 GM BOT TOP SCH ×2 (09:44→20:48)
--- NOTE | 2020-02-03 10:27 | CON ---
DATE OF CONSULTATION: 02/03/2020 HISTORY OF PRESENT ILLNESS: Mr. Cesar is a 39-year-old white male with known history of cirrhosis, was admitted for syncope and acute respiratory failure. He was noted to be in shock at that time and has been placed on pressor support. He is currently intubated. We are now being consulted for his acute kidney injury. REVIEW OF SYSTEMS: Unobtainable since the patient is intubated and sedated. MEDICATIONS: His medications are the followin. Acetaminophen q.6 p.r.n. 2. Albumin 25 g IV q.6. 3. Fentanyl drip. 4. Humalog sliding scale. 5. Hydrocortisone 50 mg IV q.6. 6. Norepinephrine drip as directed. 7. Meropenem 1 g IV q.8. 8. Metoclopramide 10 mg IV q.6. 9. Status post octreotide drip. 10. Diprivan drip. PAST MEDICAL HISTORY: History of cirrhosis, atrial fibrillation, type 2 diabetes mellitus, hypertension, chronic anemia, heavy alcohol use, history of pulmonary embolism, and history of ascites. PAST SURGICAL HISTORY: Includes the followin. Status post paracentesis. 2. Status post upper and lower GI endoscopy. SOCIAL HISTORY: The patient takes alcohol on a daily basis. He lives with his mother. Currently, no IV drug abuse. Sedentary lifestyle. ALLERGIES: NONE. TRAUMA: None. IMMUNIZATION: Unknown. HOSPITALIZATIONS: Please see past medical history. FAMILY HISTORY: No family history of ESRD. PHYSICAL EXAMINATION: VITAL SIGNS: Blood pressure is 110/80, heart rate 84, respiratory rate 20, O2 saturation ranging from 80% to 90%, and temperature 99.5. GENERAL: The patient is sedated, intubated, on ventilator support, obese. SKIN: Adequate turgor. HEENT: Slightly pale conjunctivae. Anicteric sclerae. NECK: No neck mass. No carotid bruits. No JVD. CHEST: No deformities. LUNGS: Clear breath sounds. HEART: Normal sinus rhythm. No murmurs. No gallops. No rubs. ABDOMEN: Globular, soft, and nontender. No masses. EXTREMITIES: No edema. LABORATORY DATA: Laboratories of February 03, 2020; white count 18, hemoglobin 9.8. Sodium 137, potassium 5.1, chloride 100, carbon dioxide 18, BUN 26, creatinine 2.68, glucose 210, calcium 7.4, magnesium 2.1. AST 68, ALT 30. Albumin is 3.5. On February 03, 2020, chest x-ray shows stable with increased lung markings. On January 31, 2020, CT scan of the abdomen and pelvis shows positive for ascites, positive for cirrhosis, no evidence of hydronephrosis. Urinalysis of February 01, 2020, showed protein of 300, rbc greater than 50, wbc 21 to 50. He does have numerous granular casts-21 to 50. Further review of his serum creatinine shows the following: On February 02, 2020, 2.06; on February 01, 2020, 1.43; January 31, 2020, creatinine 1.38; on January 21, 2020, creatinine 0.74. ASSESSMENT AND PLAN: 1. Acute kidney injury, consider acute tubular necrosis - as suggested by the findings on the urinalysis with numerous pigmented granular casts. Management is supportive. Continue to optimize hemodynamics with this patient. At the present time, there is no indication for any emergent hemodialysis with this patient. Overall, I feel that this patient may not be an ideal candidate for dialysis due to his multiple co morbid problems. We will be discussing the issues with his mother. 2. Septic shock, on empiric IV antibiotics. Currently, on pressor support. ID following. 3. Cirrhosis/ascites-continue supportive care. GI following. We will recheck CBC and basic met in a.m. Job ID: [id number] [facility]
[2020-02-03] MEDS: Pantoprazole 80 MG in Sodium Chloride 0.9% 100 ML IVPB SCH (12:18)
[2020-02-03] MEDS: HumaLOG 300 UNITS/3 ML VIAL SC PRN ×3 (12:27→23:15)
--- NOTE | 2020-02-03 13:46 | PRG ---
DATE OF SERVICE: 02/03/2020 SUBJECTIVE: He is in the ICU, intubated, still on pressors, two different types of pressors. He is moving around, but does not establish eye contact, sedated at the moment. OBJECTIVE: VITAL SIGNS: He has been afebrile. T-max 99.1, blood pressure 117/86, heart rate 91, O2 sats 92%. GENERAL: Orotracheal intubation, right-sided triple-lumen catheter in the femoral region. On the left groin, there is a hole over the previous central line catheter from the prior admission. SKIN: There is some erythema around this, but I think the erythema is distributed throughout the perineal area and is most likely related to fungal colonization/tinea. I do not see any purulent exudate emanating from the left- sided groin opening. Hernandez catheter. HEENT: Ocular movements are conjugate. LUNGS: Symmetric air entry. HEART: S1 and S2 regular rate. ABDOMEN: Not as distended soft. There is no guarding and no reactions on the part of the patient when I press on his abdomen. Previously noted ascites are obviously decreased in amount. LABORATORY DATA: White cell count 18,000, hemoglobin 9.8, platelets 216 with 25% bands. Creatinine 2.68, direct bilirubin 1.4, bilirubin total 3, AST 68, ALT 30, albumin 3.5. Microbiology; blood culture, E. coli with resistance to ampicillin and quinolones only, susceptibility all the remainder ones, and the patient is currently on meropenem. IMAGING STUDIES: There is chest x-ray from today, which showed fluid overload, CHF. Dr. Bryan has been consulted and he does not feel like he is an ideal candidate for dialysis at the moment. ASSESSMENT AND DISCUSSION: Alcoholism, ulcerative colitis, TNF inhibitor, sepsis with admission recently with negative cultures with improvement and now recurrence of sepsis with a gram-negative masoud, either spontaneous bacterial peritonitis or an alternate site in the gastrointestinal area. A urinary tract source is possible in view of abnormal UA and recent urinary catheterization during his last hospital stay. The imaging studies performed that were not indicative of any particular inflammatory process except for GB wall thickening. He does have those areas in the left groin previous IV access was located. I do not see induration or drainage, that erythema is somewhat symmetrically distributed through the right and left side, so I do not think it is related to the previous local access. We will go ahead and transition the patient to ceftriaxone or Zosyn. Job ID: [id number] [facility]
--- NOTE | 2020-02-03 13:47 | PDOC.HOSPP ---
- Subjective Encounter Date: 02/03/20 Encounter Time: 12:00 Subjective: is on vent, sedated - Objective Vital Signs & Weight: Vital Signs (12 hours) Temp Resp Pulse Ox 02/03/20 12:00 16 02/03/20 10:00 16 02/03/20 08:00 16 95 02/03/20 06:00 20 02/03/20 04:00 99.1 F 20 02/03/20 02:00 20 Weight Admit Weight 221 lb Weight 233 lb 7.512 oz Most Recent Monitor Data Heart Rate from ECG 91 NIBP 117/86 NIBP BP-Mean 96 Respiration from ECG 14 SpO2 92 I&O: 02/02/20 02/03/20 02/04/20 06:59 06:59 06:59 Intake Total 5245.2 5034.8 Output Total 316 67498 25 Balance 4929.2 -7087.2 -25 Result Diagrams: 02/03/20 03:22 02/03/20 03:22 Additional Labs: Accuchecks 02/03/20 02/02/20 02/02/20 12:29 22:17 17:06 POC Glucose 260 H 187 H 146 H Hospitalist ROS - Medication Medications: Active Medications Generic Name Dose Route Start Last Admin Trade Name Freq PRN Reason Stop Dose Admin Albumin Human 25 gm 02/02/20 18:00 02/03/20 12:58 Albumin 25% 25 Gm/100 Ml Bot IVPB 02/03/20 18:01 25 gm Q6HR ABRAM Administration Hydrocortisone Sodium Succinate 50 mg 02/03/20 08:40 02/03/20 09:42 Hydrocortisone Sod Succ/Pf 100 Mg/2 Ml Vial IVP 50 mg Q6H ABRAM Administration Norepinephrine Bitartrate 250 mls @ 0 mls/hr 01/31/20 23:37 02/03/20 10:15 Levophed IVPB 250 mls PRN PRN Administration To maintain MAP > 65 Protocol Titrate Fentanyl Citrate 2,000 mcg/ 100 mls @ 0 mls/hr 01/31/20 23:45 02/03/20 09:09 Sodium Chloride IV 03/01/20 23:45 100 mls INF ABRAM Administration Protocol Per Protocol Pantoprazole Sodium 80 mg/ 100 mls @ 10 mls/hr 02/01/20 05:00 02/03/20 12:18 Sodium Chloride IVPB 100 mls INF ABRAM Administration Vasopressin 20 unit/ 51 mls @ 0 mls/hr 02/01/20 09:30 02/02/20 16:43 Miscellaneous Medication 1 IV 51 mls each/ Sodium Chloride INF ABRAM Administration Protocol As Directed Sodium Bicarbonate 140 meq/ 1,140 mls @ 50 mls/hr 02/02/20 07:56 02/02/20 16:43 Dextrose/Water IV 1,140 mls .[id number] ABRAM Administration Insulin Human Lispro 0 units 01/31/20 23:37 02/03/20 12:27 Humalog 300 Units/3 Ml Vial SC 4 unit .MILD SLIDING SCALE PRN Administration Mild Correctional Scale Lorazepam 2 mg 01/31/20 23:45 02/02/20 10:32 Lorazepam 2 Mg/Ml Vial SLOW IVP 03/01/20 23:45 2 mg Q1H PRN Administration Breakthrough agitation Metoclopramide HCl 10 mg 02/03/20 08:45 02/03/20 09:43 Metoclopramide Hcl 10 Mg/2 Ml Vial IVP 10 mg Q6H ABRAM Administration Nystatin 0 gm 02/02/20 09:00 02/03/20 09:44 Nystatin Powder 15 Gm Bot TOP 1 applic BID ABRAM Administration - Exam General Appearance: ill appearing Eye: PERRL, scleral icterus ENT: no oropharyngeal lesions, dry oral mucosa Neck: supple, no JVD Heart: RRR, no murmur Respiratory: no wheezes, no rales, rhonchi Gastrointestinal: soft, no guarding, no rigidity, distended Extremities: no cyanosis, 1+ LE edema Neurological: cranial nerve grossly intact, no focal deficits Hosp A/P (1) Septic shock Code(s): A41.9 - SEPSIS, UNSPECIFIED ORGANISM; R65.21 - SEVERE SEPSIS WITH SEPTIC SHOCK Status: Acute (2) Sepsis Code(s): A41.9 - SEPSIS, UNSPECIFIED ORGANISM Status: Acute Qualifiers: Sepsis type: sepsis due to unspecified organism Sepsis acute organ dysfunction status: with acute organ dysfunction Severe sepsis acute organ dysfunction type: acute liver failure Severe sepsis shock status: with septic shock (3) GI bleed Code(s): K92.2 - GASTROINTESTINAL HEMORRHAGE, UNSPECIFIED Status: Suspected (4) Cirrhosis Code(s): K74.60 - UNSPECIFIED CIRRHOSIS OF LIVER Status: Chronic Qualifiers: Hepatic cirrhosis type: alcoholic cirrhosis Ascites presence: with ascites Qualified Code(s): K70.31 - Alcoholic cirrhosis of liver with ascites (5) Hepatic encephalopathy Code(s): K72.90 - HEPATIC FAILURE, UNSPECIFIED WITHOUT COMA Status: Acute (6) Coagulopathy Status: Chronic (7) Acute respiratory failure with hypoxia Code(s): J96.01 - ACUTE RESPIRATORY FAILURE WITH HYPOXIA Status: Acute (8) Anemia due to acute blood loss Code(s): D62 - ACUTE POSTHEMORRHAGIC ANEMIA Status: Acute (9) Chronic alcohol use Code(s): Z72.89 - OTHER PROBLEMS RELATED TO LIFESTYLE Status: Chronic (10) Obesity (BMI 30.0-34.9) Code(s): E66.9 - OBESITY, UNSPECIFIED Status: Chronic (11) Ulcerative colitis Code(s): K51.90 - ULCERATIVE COLITIS, UNSPECIFIED, WITHOUT COMPLICATIONS Status: Chronic Qualifiers: Ulcerative colitis location: unspecified ulcerative colitis location Diges tive disease complication type: without complication Qualified Code(s): K51.90 - Ulcerative colitis, unspecified, without complications (12) Bacteremia Code(s): R78.81 - BACTEREMIA Status: Acute (13) DAE (acute kidney injury) Code(s): N17.9 - ACUTE KIDNEY FAILURE, UNSPECIFIED Status: Acute - Plan has recieved total of 1 u prbc, 8 of FFP's and 3 of plasma is on protonix, levophed and vasopressin drips on meropenem for e.coli, has 32% bands with 20k wbc has high meld and kelly scores with poor prognosis and chronic alc abuse palliative care consultation for hospice s/p paracentesis with removal of 4 lts on 02/02/20 d/w mother and sister at bedside with palliative care, they are aware of very poor prognosis
--- NOTE | 2020-02-03 14:39 | PDOC.PALPN ---
Palliative Progress Note - Subjective Intubated, mechanical ventilation, sedated, pressure support. - Objective Vital Signs: Vital Signs - Most Recent Temp Pulse Resp BP Pulse Ox 99.1 F 81 16 87/61 L 95 02/03/20 04:00 02/02/20 12:00 02/03/20 12:00 02/02/20 12:00 02/03/20 08:00 - Physical Exam Constitutional: encephalitic, ill appearing HEENT: moist MMs Respiratory: no wheezing, diminished lung sound Cardiovascular: RRR Gastrointestinal: soft Deviation from normal: obese Genitourinary: calderon catheter Musculoskeletal: no cyanosis, no clubbing Neurology: no focal deficits Skin: cap refill <2 seconds Deviation from normal: encephalopathic, sedated - Assessment (1) Acute respiratory failure with hypoxia Code(s): J96.01 - ACUTE RESPIRATORY FAILURE WITH HYPOXIA Current Visit: Yes Status: Acute (2) Hepatic encephalopathy Code(s): K72.90 - HEPATIC FAILURE, UNSPECIFIED WITHOUT COMA Current Visit: Yes Status: Acute (3) Sepsis Code(s): A41.9 - SEPSIS, UNSPECIFIED ORGANISM Current Visit: Yes Status: Acute Qualifiers: Sepsis type: sepsis due to unspecified organism Sepsis acute organ dysfunction status: with acute organ dysfunction Severe sepsis acute organ dysfunction type: acute liver failure Severe sepsis shock status: with septic shock (4) Cirrhosis Code(s): K74.60 - UNSPECIFIED CIRRHOSIS OF LIVER Current Visit: Yes Status: Chronic Qualifiers: Hepatic cirrhosis type: alcoholic cirrhosis Ascites presence: with ascites Qualified Code(s): K70.31 - Alcoholic cirrhosis of liver with ascites (5) Coagulopathy Current Visit: Yes Status: Chronic (6) GI bleed Code(s): K92.2 - GASTROINTESTINAL HEMORRHAGE, UNSPECIFIED Current Visit: Yes Status: Suspected (7) Palliative care encounter Code(s): Z51.5 - ENCOUNTER FOR PALLIATIVE CARE Current Visit: No Status: Acute - Plan Plan: Family meeting with patient mother Margarita and his sister Ana María. He has two brothers, one of which is on the way. Discussed liver failure and poor prognosis, kidney injury, pressure support, impact on respiratory system. Revisited MELD score and implication of poor score related to mortality. Education in relation to resuscitation status and poor meaningful outcome at this time if further resuscitation measures are needed. Dr Gonzales in to visit with family Spiritual care also called. Palliative Care will continue to offer emotional support and revisit Goal of Care paired with poor prognosis. [45] minutes spent on this encounter with >50% of the time in counseling and coordination of care. - ROS Non Response: due to endotracheal tube, due to mental status
[2020-02-03] MEDS: Sodium Bicarbonate 140 MEQ in Dextrose 5% in Water 1,000 ML IV SCH (15:49)
[2020-02-03] MEDS: cefTRIAXone\\ROCEPHIN 2 GM in Sodium Chloride 0.9% 100 ML IVPB SCH (16:07)
[2020-02-03] MEDS ORDERED: Albumin 25% 25 GM/100 ML BOT IVPB SCH (18:45)
--- NOTE | 2020-02-03 19:07 | PRG ---
DATE OF SERVICE: 02/03/2020 REASON FOR CONSULTATION: Cirrhosis, ulcerative colitis. SUBJECTIVE: The patient remains currently sedated and intubated on mechanical ventilation. Attempts to elicit a meaningful response from the patient today were unsuccessful. Per nursing staff, there were no acute events or problems overnight. There was no mention of melenic-type stools, hematochezia, although the patient does have significant abdominal distention and edema of both the upper and lower extremities. OBJECTIVE: VITAL SIGNS: Temperature 99.9, pulse 85, blood pressure 126/90, respiratory rate 12, saturating 92% on mechanical ventilation. GENERAL: The patient was lying in bed, in no acute distress, intubated and sedated on mechanical ventilation. RESPIRATORY: Coarse breath sounds were auscultated in all lung bedoya consistent with mechanical ventilation. CARDIOVASCULAR: Tachycardic rate but regular rhythm. ABDOMEN: Hypoactive bowel sounds. Soft, nontender. Non grimacing to palpation. Mild to moderate abdominal distention with positive shifting dullness. EXTREMITIES: 1+/2+ bilateral edema in both the upper and lower extremities. LABORATORY DATA: CBC with a white blood cell count of 20.3, hemoglobin 10.1, hematocrit 30.8, platelets 184. Chemistry with a sodium of 137, potassium 5.1, chloride 100, CO2 of 18, BUN 26, creatinine 2.68, glucose 210, AST 68, ALT 30, alkaline phosphatase 73, total bilirubin 3.0. IMAGING DATA: Chest x-ray was obtained on February 03, 2020, which showed stable examination with evidence of possible fluid overload versus congestive heart failure secondary to pulmonary vascular congestion and mild central edema pattern. IMPRESSION: 1. End-stage liver disease with decompensation of hepatic function with increasing INR and elevated bilirubin. 2. Possible hepatorenal syndrome secondary to increasing BUN/creatinine. 3. Septic shock secondary to Escherichia coli bacteremia, on multiple pressors. 4. Hepatic ascites. The patient underwent paracentesis with approximately 4 L removed during this admission with no evidence of SBP. 5. Ulcerative colitis. The patient was never restarted on his immunosuppressive regimen after his last hospitalization where he was noted to have a colonoscopy with normal findings both endoscopically and histologically. RECOMMENDATIONS: 1. We would continue broad-spectrum antibiotics and pressor support as you are doing. 2. We would continue IV albumin as part of treatment for possible hepatorenal syndrome. 3. Consideration of octreotide and midodrine were contemplated as part of treatment of his hepatorenal syndrome, but given the fact that he is on multiple pressors, it has essentially the same effect in terms of perfusing his kidneys, and therefore may not add any additional benefit at this time. 4. With his active bacteremia, the patient is not currently a transplant candidate as infection is an absolute contraindication to liver transplantation. 5. We would continue to trend the patient's LFTs and creatinine for evaluation of liver function and renal function respectively. If the patient continues to have renal decline while on albumin administration, this could be indicative of hepatorenal syndrome for which the patient is not currently a transplant candidate. The patient's current clinical status is guarded/critical secondary to Escherichia coli bacteremia/sepsis and underlying liver disease/cirrhosis. In light of his worsening hepatic and renal function, palliative care is not an unreasonable option. We will continue to follow. Please call with any questions. Job ID: [id number]
[2020-02-04] MEDS: Albumin 25% 25 GM/100 ML BOT IVPB SCH ×4 (00:49→18:45)
[2020-02-04] MEDS: Hydrocortisone Sod Succ/PF 100 mg/2 ml Vial IVP SCH ×3 (02:37→22:00)
[2020-02-04] MEDS: Metoclopramide HCl 10 MG/2 ML VIAL IVP SCH ×4 (02:38→22:00)
[2020-02-04] MEDS: HumaLOG 300 UNITS/3 ML VIAL SC PRN ×4 (05:07→23:00)
[2020-02-04 05:15] LABS: INR-International Normal Ratio 1.9; PTT 37.2 sec (22.9-36.1); Prothrombin Time 22.3 sec (12.0-14.7)
[2020-02-04 05:31] LABS: ALT (SGPT) 18 U/L (8-55); AST (SGOT) 25 U/L (5-34); Albumin 3.9 g/dL (3.5-5.0); Alkaline Phosphatase 69 U/L (40-110); Anion Gap 16 mmol/L (10-20); BUN (Urea Nitrogen) 38 mg/dL (8.9-20.6); Bilirubin, Total 2.6 mg/dL (0.2-1.2); Calc. Creatinine Clearance 49 mL/min (70-130); Calcium 7.9 mg/dL (7.8-10.44); Carbon Dioxide 26 mmol/L (22-29); Chloride 100 mmol/L (98-107); Estimated GFR-MDRD 22; Globulin 1.9 g/dL (2.4-3.5); Glucose 232 mg/dL (70-105); Potassium 3.5 mmol/L (3.5-5.1); Protein, Total 5.8 g/dL (6.0-8.3); Sodium 138 mmol/L (136-145)
[2020-02-04 05:41] LABS: Mean Corpuscular HGB CONC 32.6 g/dL (32.0-36.0); Mean Corpuscular Hemoglobin 31.9 pg (27.0-31.0); Mean Corpuscular Volume 97.9 fL (78.0-98.0); Mean Platelet Volume 10.4 fL (7.4-10.4); Platelet Count 133 thou/uL (130-400); RBC Distribution Width 17.8 % (11.5-14.5); Red Blood Cell (RBC) Count 2.82 mill/uL (4.70-6.10); White Blood Cell (WBC) Count 13.1 thou/uL (4.8-10.8)
[2020-02-04 06:16] LABS: Band 12 % (5-11); Lymphocytes 4 % (21-51); MDiff Complete? YES; Monocytes 10 % (0-10); Neutrophil 74 % (42-75)
[2020-02-04] MEDS ORDERED: Phytonadione 10 MG in Sodium Chloride 0.9% 50 ML IVPB SCH (08:15)
--- NOTE | 2020-02-04 08:20 | PRG ---
DATE OF SERVICE: 02/04/2020 35 minutes of critical care time. SUBJECTIVE: The patient remains intubated on mechanical ventilation. He is very sedate this morning. OBJECTIVE: VITAL SIGNS: His temperature is 97.9, pulse 85, and blood pressure 101/73. GENERAL: He is currently on the norepinephrine drip at 6 mg/minute. He has been taken off the vasopressin drip. He continues on a Protonix drip and a bicarbonate drip. His 24 intake was 3229 and his output was 101. HEENT: Remarkable for icteric sclerae and intubated oropharynx. NECK: No JVD. LUNGS: Coarse breath sounds. CARDIOVASCULAR: S1 and S2. Regular. ABDOMEN: Distended with ascites. EXTREMITIES: Edematous. X-RAY: His chest x-ray continues to show volume loss in both lungs from ascites below the diaphragm compressing his diaphragm upward. LABORATORY DATA: White blood cell count 13.1, hematocrit 27.6, and platelet count 133. INR is 1.9 and PTT 37.2. ABG pending. Sodium 138, potassium 3.5, chloride 100, CO2 of 26, BUN 38, creatinine 3.1, glucose 232, total bilirubin is 2.6, and albumin 3.9. ASSESSMENT: 1. Acute respiratory failure requiring mechanical ventilation. 2. Cirrhosis of the liver. 3. Tense ascites. 4. Hemodynamic shock from gram-negative sepsis from Escherichia coli. 5. Renal failure. 6. Probable development of hepatorenal syndrome. PLAN: 1. At this time, he is not weanable from mechanical ventilation due to his critical status. 2. Continue antibiotics. 3. Nephrology has been consulted. 4. Can decrease steroids to twice daily dosing. 5. Will stop bicarbonate drip. The patient appears to be getting plenty of fluids through his medications and drips otherwise. 6. He will need further paracentesis before considering extubation. 7. Given dose of vitamin K today, and continue monitoring his coagulation parameters. Job ID: [id number]
--- NOTE | 2020-02-04 08:32 | ULT ---
ULTRASOUND ABDOMEN COMPLETE: DATE: 02/04/2020 HISTORY: "Bacteremia and gallbladder thickening" in 39-year-old male TECHNIQUE: Grayscale ultrasound evaluation of the liver, gallbladder, spleen, pancreas, common duct, kidneys, ab dominal aorta, and inferior vena cava (IVC). FINDINGS: Small to moderate amount of free fluid throughout the abdominal cavity. No splenomegaly. Hepatic echogenicity within normal limits. Diffuse gallbladder wall thickening up to approximately 7 mm. This could be due to the ascites, liver disease, chronic cholecystitis, or acute cholecystitis. Gallbladder lumen is not excessively distended. No gallstone identified, but the gallbladder neck is poorly visualized. Common bile duct: Not visualized. Right kidney: No hydronephrosis. Left kidney: Obscured by shadowing from bowel gas. Abdominal aorta: Proximal normal in caliber. Mid and distal obscured by shadowing from bowel gas. Inferior vena cava: Patent where visualized.. IMPRESSION: 1) small to moderate volume of ascites. 2) mural thickening of the gallbladder. This is favored to be due to ascites. Differential diagnosis is given above.
[2020-02-04 08:44] LABS: Actual Bicarbonate (HCO3a) 25.9 mEq/L (22-28); Base Excess (BEa) 1.9 mEq/L (-2.0 to +3.0); CO2 Tension 37.9 mmHg (35.0-45.0); Calcium, Ionized (arterial) 1.03 mmol/L (1.12-1.30); Carboxyhemoglobin (COHb) 0.3 gm% (0.0-3.0); Potassium - ABG Lab 3.61 mmol/L (3.70-5.30); pH, Arterial 7.45 (7.35-7.45)
[2020-02-04 08:58] LABS: O2 Tension (PaO2), arterial 53.2 mmHg (80.0-100.0)
[2020-02-04 08:59] LABS: ALV-art Gradient 255.925 mmHg (0-20); Puncture Site RRAD
[2020-02-04] MEDS: Pantoprazole 80 MG in Sodium Chloride 0.9% 100 ML IVPB SCH (09:02)
--- NOTE | 2020-02-04 09:14 | PRG ---
DATE OF SERVICE: 02/04/2020 SUBJECTIVE: Mr. Cesar is a 39-year-old white male, who was admitted for sepsis, acute respiratory failure and seen by the Renal Service for his acute kidney injury. Review of his history, urine sediment, and lab suggested he has acute tubular necrosis-mostly likely ischemic. He is currently undergoing optimization of his hemodynamics. No acute events noted last night. OBJECTIVE: VITAL SIGNS: Blood pressure is 94/71, heart rate 85, respiratory rate 16, O2 saturation 96%, and temperature 97.9. GENERAL: The patient is sedated, intubated, on ventilator support. SKIN: Adequate turgor. HEENT: He has pinkish conjunctivae. Anicteric sclerae. NECK: No neck mass. No carotid bruits. No JVD. CHEST: No deformities. LUNGS: Harsh breath sounds. HEART: Normal sinus rhythm. No murmurs. No gallops. No rubs. ABDOMEN: Globular and soft. Positive for ascites. EXTREMITIES: Positive for edema. MEDICATIONS: Medications of February 04, 2020, were reviewed. LABORATORY DATA: Laboratories of February 04, 2020; white count 13.1, hemoglobin 9. Sodium 138, potassium 3.5, chloride 100, carbon dioxide 26, BUN 38, creatinine 3.12, GFR 22 mL/minute, calcium 7.9, and albumin 3.9. ASSESSMENT AND PLAN: 1. Acute kidney injury-secondary to presumptive ischemic acute tubular necrosis. Continue supportive care. The patient's urine output is significantly decreased. There is no indication for any emergent hemodialysis with this patient. He is still adequately oxygenating. His potassium is normal. As previously mentioned, the patient is a poor candidate for dialysis. Again, we will discuss this with the family. 2. Hypotension. Continue to optimize hemodynamics. The patient has been receiving albumin infusion and pressor support. 3. End stage liver disease - supportive care; GI following Agree with current management. Job ID: [id number] [facility]
--- NOTE | 2020-02-04 09:48 | RAD ---
CHEST 1 VIEW: INDICATION: History of pneumonia. COMPARISON: Prior exam dated 02/03/2020. FINDINGS: The patient remains intubated with gastric catheter placement. Left subclavian central venous cathet er is stable. Cardiomegaly with pulmonary vascular congestion is stable. The subsegmental volume lo ss involving both lung bases persist. No pneumothorax is evident. IMPRESSION: 1. Persistent subsegmental volume loss, cardiomegaly, and pulmonary vascular congestion. 2. Tubes and lines are stable. 3. No pneumothorax identified. POS: [facility]
[2020-02-04] MEDS: Nystatin Powder 15 GM BOT TOP SCH ×2 (10:00→22:00)
[2020-02-04] MEDS ORDERED: Vancomycin HCl 1.25 GM in Sodium Chloride 0.9% 250 ML 250 ML IVPB SCH (11:00)
[2020-02-04] MEDS ORDERED: Vancomycin 1.5 GRAM/300 ML BAG 1.5 GM in Premix Bag 1 BAG IVPB SCH (11:00)
[2020-02-04] MEDS: fentaNYL Citrate/PF 2,000 MCG in Sodium Chloride 0.9% 60 ML IV SCH (11:04)
--- NOTE | 2020-02-04 11:42 | PDOC.FMACP ---
Advance Care Planning - Problem (1) Acute respiratory failure with hypoxia Status: Acute Code(s): J96.01 - ACUTE RESPIRATORY FAILURE WITH HYPOXIA (2) Hepatic encephalopathy Status: Acute Code(s): K72.90 - HEPATIC FAILURE, UNSPECIFIED WITHOUT COMA (3) Sepsis Status: Acute Code(s): A41.9 - SEPSIS, UNSPECIFIED ORGANISM Qualifiers: Sepsis type: sepsis due to unspecified organism Sepsis acute organ dysfunction status: with acute organ dysfunction Severe sepsis acute organ dysfunction type: acute liver failure Severe sepsis shock status: with septic shock (4) Cirrhosis Status: Chronic Code(s): K74.60 - UNSPECIFIED CIRRHOSIS OF LIVER Qualifiers: Hepatic cirrhosis type: alcoholic cirrhosis Ascites presence: with ascites Qualified Code(s): K70.31 - Alcoholic cirrhosis of liver with ascites (5) Coagulopathy Status: Chronic (6) GI bleed Status: Suspected Code(s): K92.2 - GASTROINTESTINAL HEMORRHAGE, UNSPECIFIED (7) Palliative care encounter Status: Acute Code(s): Z51.5 - ENCOUNTER FOR PALLIATIVE CARE - Note Participants: family, surrogate decision-maker, palliative care Summary: Palliative Care revisited Advanced Care Planning with patient mother and his siblings. The diagnosis, prognosis and goals of care were discussed. Appropriate forms and documentation to accomplish the goals of care were discussed. All questions were answered. Currently they are electing to transition to a DNAR, but desire to continue with all aggressive measures and treatments. Revisited MELD score, TIGIST and poor prognosis. Discussed multiple interventions including transfusion, pressure support, paracentesis, and antibiotics. Palliative care will continue to assist with complex decision making and revisit Goal of Care paired with guarded prognosis. Communicated with Dr Gonzales Time Spent (mins): 50
[2020-02-04] MEDS ORDERED: Lidocaine 1% PF 5 ML VIAL ONE (11:49)
[2020-02-04] MEDS ORDERED: Sodium Bicarbonate 2.5 MEQ/5 ML VIAL ONE (11:49)
[2020-02-04] MEDS: Norepinephrine 8 MG/0.9% NS 250 ML IVPB PRN (12:02)
--- NOTE | 2020-02-04 12:39 | PDOC.HOSPP ---
- Subjective Encounter Date: 02/04/20 Encounter Time: 08:40 Subjective: is on vent, obtunded - Objective Vital Signs & Weight: Vital Signs (12 hours) Temp Pulse Resp 02/04/20 08:56 79 02/04/20 08:00 16 02/04/20 07:00 98.1 F 02/04/20 06:00 16 02/04/20 04:00 98.6 F 16 02/04/20 02:00 16 Weight Admit Weight 221 lb Weight 237 lb 14.06 oz Most Recent Monitor Data Heart Rate from ECG 84 NIBP 108/85 NIBP BP-Mean 92 Respiration from ECG 16 SpO2 97 I&O: 02/03/20 02/04/20 02/05/20 06:59 06:59 06:59 Intake Total 5034.8 3229.9 152 Output Total 13750 101 15 Balance -7087.2 3128.9 137 Result Diagrams: 02/04/20 03:30 02/04/20 03:30 Additional Labs: Accuchecks 02/04/20 02/03/20 04:27 22:54 POC Glucose 228 H 258 H Hospitalist ROS - Medication Medications: Active Medications Generic Name Dose Route Start Last Admin Trade Name Freq PRN Reason Stop Dose Admin Albumin Human 25 gm 02/03/20 23:59 02/04/20 11:43 Albumin 25% 25 Gm/100 Ml Bot IVPB 02/04/20 18:01 25 gm Q6HR ABRAM Administration Hydrocortisone Sodium Succinate 50 mg 02/04/20 09:00 02/04/20 09:32 Hydrocortisone Sod Succ/Pf 100 Mg/2 Ml Vial IVP 50 mg BID ABRAM Administration Norepinephrine Bitartrate 250 mls @ 0 mls/hr 01/31/20 23:37 02/04/20 12:02 Levophed IVPB 250 mls PRN PRN Administration To maintain MAP > 65 Protocol Titrate Fentanyl Citrate 2,000 mcg/ 100 mls @ 0 mls/hr 01/31/20 23:45 02/04/20 11:04 Sodium Chloride IV 03/01/20 23:45 100 mls INF ABRAM Administration Protocol Per Protocol Pantoprazole Sodium 80 mg/ 100 mls @ 10 mls/hr 02/01/20 05:00 02/04/20 09:02 Sodium Chloride IVPB 100 mls INF ABRAM Administration Vasopressin 20 unit/ 51 mls @ 0 mls/hr 02/01/20 09:30 02/02/20 16:43 Miscellaneous Medication 1 IV 51 mls each/ Sodium Chloride INF ABRAM Administration Protocol As Directed Ceftriaxone Sodium 2 gm/ 100 mls @ 200 mls/hr 02/03/20 14:00 02/03/20 16:07 Sodium Chloride IVPB 100 mls Q24HR ABRAM Administration Vancomycin HCl 1.25 gm/ Sodium 250 mls @ 166.667 mls/hr 02/04/20 11:00 02/04/20 11:22 Chloride IVPB 250 mls 1100 ABRAM Administration Insulin Human Lispro 0 units 01/31/20 23:37 02/04/20 05:07 Humalog 300 Units/3 Ml Vial SC 3 unit .MILD SLIDING SCALE PRN Administration Mild Correctional Scale Lorazepam 2 mg 01/31/20 23:45 02/02/20 10:32 Lorazepam 2 Mg/Ml Vial SLOW IVP 03/01/20 23:45 2 mg Q1H PRN Administration Breakthrough agitation Metoclopramide HCl 10 mg 02/03/20 08:45 02/04/20 09:32 Metoclopramide Hcl 10 Mg/2 Ml Vial IVP 10 mg Q6H ABRAM Administration Nystatin 0 gm 02/02/20 09:00 02/03/20 20:48 Nystatin Powder 15 Gm Bot TOP 1 applic BID ABRAM Administration - Exam General Appearance: ill appearing Eye: scleral icterus ENT: no oropharyngeal lesions, dry oral mucosa Neck: supple, no JVD Heart: RRR, no murmur Respiratory: no wheezes, rales, rhonchi Gastrointestinal: soft, normal bowel sounds, distended Gastrointestinal - other findings: scrotal edema++ Extremities: no cyanosis, 2+ LE edema Neurological: cranial nerve grossly intact, no focal deficits Hosp A/P (1) Septic shock Code(s): A41.9 - SEPSIS, UNSPECIFIED ORGANISM; R65.21 - SEVERE SEPSIS WITH SEPTIC SHOCK Status: Acute (2) Sepsis Code(s): A41.9 - SEPSIS, UNSPECIFIED ORGANISM Status: Acute Qualifiers: Sepsis type: sepsis due to unspecified organism Sepsis acute organ dysfunction status: with acute organ dysfunction Severe sepsis acute organ dysfunction type: acute liver failure Severe sepsis shock status: with septic shock (3) GI bleed Code(s): K92.2 - GASTROINTESTINAL HEMORRHAGE, UNSPECIFIED Status: Suspected (4) Cirrhosis Code(s): K74.60 - UNSPECIFIED CIRRHOSIS OF LIVER Status: Chronic Qualifiers: Hepatic cirrhosis type: alcoholic cirrhosis Ascites presence: with ascites Qualified Code(s): K70.31 - Alcoholic cirrhosis of liver with ascites (5) Hepatic encephalopathy Code(s): K72.90 - HEPATIC FAILURE, UNSPECIFIED WITHOUT COMA Status: Acute (6) Coagulopathy Status: Chronic (7) Acute respiratory failure with hypoxia Code(s): J96.01 - ACUTE RESPIRATORY FAILURE WITH HYPOXIA Status: Acute (8) Anemia due to acute blood loss Code(s): D62 - ACUTE POSTHEMORRHAGIC ANEMIA Status: Acute (9) Chronic alcohol use Code(s): Z72.89 - OTHER PROBLEMS RELATED TO LIFESTYLE Status: Chronic (10) Obesity (BMI 30.0-34.9) Code(s): E66.9 - OBESITY, UNSPECIFIED Status: Chronic (11) Ulcerative colitis Code(s): K51.90 - ULCERATIVE COLITIS, UNSPECIFIED, WITHOUT COMPLICATIONS Status: Chronic Qualifiers: Ulcerative colitis location: unspecified ulcerative colitis location Digestive disease complication type: without complication Qualified Code(s): K51.90 - Ulcerative colitis, unspecified, without complications (12) Bacteremia Code(s): R78.81 - BACTEREMIA Status: Acute (13) DAE (acute kidney injury) Code(s): N17.9 - ACUTE KIDNEY FAILURE, UNSPECIFIED Status: Acute - Plan has recieved total of 1 u prbc, 8 of FFP's and 3 of plasma is on protonix, levophed drips on ceftriaxone for e.coli bacteremia has high meld and kelly scores with poor prognosis and chronic alc abuse palliative care consultation for hospice s/p paracentesis with removal of 4 lts on 02/02/20, likely repeat paracentesis today d/w mother and sister at bedside with palliative care, they are aware of very poor prognosis (02/03/20) they have opted for dnar today per palliative care
[2020-02-04] MEDS: cefTRIAXone\\ROCEPHIN 2 GM in Sodium Chloride 0.9% 100 ML IVPB SCH (14:44)
[2020-02-04 15:40] LABS: RBC Count-Automated (BF) 1072 /cu.mm; WBC/Nucleated-Auto (BF) 525 uL
[2020-02-04 16:05] LABS: BF Color Yellow; Body Fluid Source Ascites Body Fluid; Clarity Hazy (Clear); Tube # EDTA
[2020-02-04 16:07] LABS: BF Segmented Neutrophils 48 %; Cell Count Non Hematic 26 %; Lymphocytes 26 %
--- NOTE | 2020-02-04 16:37 | ULT ---
Sonographic guided paracentesis HISTORY: Symptomatic ascites. FINDINGS: After explaining the procedure and answering all questions, sonographic survey showed a lar ge amount of free fluid at the abdomen. Sterile technique, buffered local anesthesia, sonographic guidance, and a right lateral approach were used to carefully advance a 19-gauge Yueh needle and catheter into the free fluid. Catheter was left to drain a total volume of 8.0 L clear yellow liquid. A portion [facility]. Catheter was removed with small amount of fluid remaining. Patient tolerated the procedure well. IMPRESSION : Technically successful sonographic guided paracentesis. 8.0 L.
--- NOTE | 2020-02-04 18:09 | PRG ---
DATE OF SERVICE: 02/04/2020 REASON FOR CONSULTATION: Cirrhosis, ulcerative colitis. SUBJECTIVE: Per nursing staff, there were no acute events or problems overnight. He continues to be relatively anuric with minimal amounts of urine produced over the last 12 to 24 hours. He did have one small brownish/reddish bowel movement earlier today, but no evidence of overt GI bleeding per nursing staff. He did have a paracentesis earlier today with the removal of approximately 8 L of ascitic fluid with results still pending at this time. Otherwise, there was no mention of vomiting, fevers, chills, GI bleeding, abdominal pain. OBJECTIVE: VITAL SIGNS: Temperature 97.6, pulse 81, blood pressure 114/90, respiratory rate 16, saturating 97% on mechanical ventilation. GENERAL: The patient is lying in bed, in no acute distress, intubated and sedated on mechanical ventilation. RESPIRATORY: Coarse breath sounds were auscultated in all lung bedoya consistent with mechanical ventilation. CARDIOVASCULAR: Regular rate and rhythm. ABDOMEN: Hypoactive bowel sounds. Soft. No grimacing to palpation. Mild abdominal distention that was much improved when compared to previous examination. EXTREMITIES: 1+/2+ bilateral edema of both the upper and lower extremities. LABORATORY DATA: CBC with a white blood cell count of 13.1, hemoglobin 9, hematocrit 27.6, platelets 133. INR 1.9. Chemistry with a sodium of 138, potassium 3.5, chloride 100, CO2 of 26, BUN 38, creatinine 3.12, glucose 232. AST 25, ALT 18, alkaline phosphatase 69, total bilirubin 2.6, calculated MELD sodium score of 29. IMAGING DATA: Abdominal ultrasound was obtained on February 04, 2020, which showed a small to moderate amount of free fluid throughout the abdominal cavity consistent with ascites. Diffuse gallbladder wall thickening up to 7 mm in size was seen, but was uniformly affecting the gallbladder with no excessive distention of the gallbladder or lumen. The common bile duct was not visualized during this examination, with these findings consistent with ascites generating mural thickening of the gallbladder. IMPRESSION: 1. End-stage liver disease with decompensation of hepatic function. However, over the course of the last 12 to 24 hours, the patient has had a decrease in both his INR and bilirubin, which is hopeful for improvement in liver status. 2. Possible hepatorenal syndrome secondary to increasing BUN/creatinine in light of end-stage renal disease. The patient currently has increasing creatinine with decreasing urine output concerning for HRS. Nephrology has been consulted at this time. 3. Septic shock secondary to E coli bacteremia, has been able to be weaned off one of the pressors thus far, but still on Levophed. 4. Hepatic ascites. The patient underwent paracentesis earlier today with 8 L of fluid removed with results still pending at this time. 5. Ulcerative colitis. Most recent colonoscopy showing quiescent disease with no evidence of ulcerative colitis both endoscopically or histologically. RECOMMENDATIONS: 1. Would continue with broad-spectrum antibiotics and pressor support as you are doing. 2. Continue IV albumin administration for possible hepatorenal syndrome. 3. Continue to monitor patient's LFTs and INR daily for evaluation of liver function. If the patient continues to have decline in renal function while on albumin administration, this could be indicative of hepatorenal syndrome for which the patient is not currently a liver transplant candidate secondary to coexisting infection/bacteremia. We will continue to follow. Please call with any questions. Job ID: [id number]
[2020-02-04 23:12] LABS: CMV DNA-PCR Test Positive < 200 IU/mL (Negative)
[2020-02-05] MEDS: Metoclopramide HCl 10 MG/2 ML VIAL IVP SCH ×4 (03:06→20:39)
[2020-02-05] MEDS: HumaLOG 300 UNITS/3 ML VIAL SC PRN ×4 (04:30→22:19)
[2020-02-05 04:34] LABS: INR-International Normal Ratio 1.7; PTT 36.7 sec (22.9-36.1); Prothrombin Time 20.7 sec (12.0-14.7)
[2020-02-05 05:22] LABS: Anisocytosis SLIGHT = 6-15 cells (100X) (0-5/hpf); Band 11 % (5-11); Hemoglobin 9.8 g/dL (14.0-18.0); Lymphocytes 8 % (21-51); MDiff Complete? YES; Mean Corpuscular HGB CONC 32.1 g/dL (32.0-36.0); Mean Corpuscular Hemoglobin 31.4 pg (27.0-31.0); Mean Corpuscular Volume 97.8 fL (78.0-98.0); Mean Platelet Volume 10.6 fL (7.4-10.4); Monocytes 2 % (0-10); Neutrophil 79 % (42-75); Platelet Count 100 thou/uL (130-400); Platelet Morphology Comment Appears Decreased; RBC Distribution Width 17.6 % (11.5-14.5); Red Blood Cell (RBC) Count 3.14 mill/uL (4.70-6.10); White Blood Cell (WBC) Count 12.3 thou/uL (4.8-10.8)
[2020-02-05 05:43] LABS: ALT (SGPT) 14 U/L (8-55); AST (SGOT) 25 U/L (5-34); Albumin 3.6 g/dL (3.5-5.0); Alkaline Phosphatase 73 U/L (40-110); Anion Gap 18 mmol/L (10-20); BUN (Urea Nitrogen) 47 mg/dL (8.9-20.6); Bilirubin, Total 2.6 mg/dL (0.2-1.2); Calc. Creatinine Clearance 47 mL/min (70-130); Calcium 8.5 mg/dL (7.8-10.44); Carbon Dioxide 24 mmol/L (22-29); Chloride 101 mmol/L (98-107); Estimated GFR-MDRD 21; Globulin 1.8 g/dL (2.4-3.5); Glucose 194 mg/dL (70-105); Potassium 3.4 mmol/L (3.5-5.1); Protein, Total 5.4 g/dL (6.0-8.3); Sodium 140 mmol/L (136-145)
[2020-02-05 07:49] LABS: Actual Bicarbonate (HCO3a) 23.9 mEq/L (22-28); Base Excess (BEa) 1.1 mEq/L (-2.0 to +3.0); CO2 Tension 31.7 mmHg (35.0-45.0); Calcium, Ionized (arterial) 1.16 mmol/L (1.12-1.30); Carboxyhemoglobin (COHb) 0.1 gm% (0.0-3.0); Hemoglobin (Hb) 10.2 g/dL (14.0-18.0); O2 Tension (PaO2), arterial 106.9 mmHg (80.0-100.0); Potassium - ABG Lab 3.35 mmol/L (3.70-5.30); Puncture Site LRA
[2020-02-05 07:50] LABS: ALV-art Gradient 209.975 mmHg (0-20)
--- NOTE | 2020-02-05 09:37 | PRG ---
DATE OF SERVICE: 02/05/2020 SUBJECTIVE: Silvio Cesar is a 39-year-old gentleman, who is intubated in the vent, sedated. He underwent paracentesis yesterday for tense ascites. X-ray shows bilateral pleural effusion. He is on antibiotics, hydrocortisone, neb treatments, Levophed, and vasopressin. OBJECTIVE: VITAL SIGNS: His blood pressure is 90/60, pulse 85, sats respirations set at 10. CHEST: Rhonchi, crackles. CARDIAC: Normal S1, S2. No gallops. ABDOMEN: Soft. NEUROLOGIC: Sedated. LABORATORY DATA: White count 12,000, platelet count is 100. PO2 of 106, pCO2 50%. Creatinine is 3, bicarb is 24, glucose 154, total bilirubin 2.6. ASSESSMENT: End-stage liver disease, cirrhosis, ascites, bilateral pleural effusion. PLAN: Shock. He is not weanable at this stage. We will continue supportive care. Vent is being adjusted. Nutrition, PT. One-half hour of critical care time. Job ID: [id number]
[2020-02-05] MEDS: Hydrocortisone Sod Succ/PF 100 mg/2 ml Vial IVP SCH ×2 (09:59→20:40)
[2020-02-05] MEDS: Nystatin Powder 15 GM BOT TOP SCH ×2 (10:20→20:48)
[2020-02-05] MEDS: Albumin 25% 25 GM/100 ML BOT IVPB SCH ×3 (10:56→22:28)
--- NOTE | 2020-02-05 10:58 | RAD ---
Chest one view HISTORY: Pneumonia. Follow-up. COMPARISON: 02/04/2020. FINDINGS: Cardiac silhouette is magnified, enlarged, and partially obscured by increasing hazy opacit y at the inferior aspect of each hemithorax. Pulmonary vasculature is upper limits of normal and accentuated by shallow inspiration. Mediastinum is midline. Lines and tubes appear unchanged in position. No evidence of pneumothorax. IMPRESSION : Increasing bilateral pleural fluid and bibasilar infiltrate.
[2020-02-05] MEDS ORDERED: Vancomycin 1.5 GRAM/300 ML BAG 1.5 GM in Premix Bag 1 BAG IVPB SCH (11:00)
--- NOTE | 2020-02-05 11:25 | PRG ---
DATE OF SERVICE: 02/05/2020 REASON FOR CONSULTATION: Cirrhosis, ulcerative colitis. SUBJECTIVE: Per nursing staff, he was able to be weaned off vasopressin yesterday and the Levophed was turned off this morning as part of the weaning off the pressor support so far. Other than that, he did not have any events or problems overnight. He has been minimally responsive despite sedation breaks, but he has been on the fentanyl for some time. He did have a paracentesis yesterday with approximately 8 L of ascitic fluid removed with no evidence of SBP. Otherwise, no mention of fevers, hematemesis, melena, hematochezia, or abdominal tenderness. OBJECTIVE: VITAL SIGNS: Temperature 98.2, pulse 97, blood pressure 106/79, respiratory rate 14, saturating 98% on mechanical ventilation. GENERAL: The patient was lying in bed, in no acute distress, intubated and sedated on mechanical ventilation. RESPIRATORY: Coarse breath sounds auscultated in all lung bedoya consistent with mechanical ventilation. CARDIOVASCULAR: Regular rate and rhythm. ABDOMEN: Hypoactive bowel sounds. Soft. No grimacing to palpation. Mild abdominal distention. EXTREMITIES: 1+/2+ bilateral edema of both the upper and lower extremities. LABORATORY DATA: CBC with a white blood cell count of 12.3, hemoglobin 9.8, hematocrit 30.7, platelets 100. INR 1.7. Chemistry with a sodium of 140, potassium 3.4, chloride 101, CO2 of 24, BUN 47, creatinine 3.26. AST 25, ALT 14, alkaline phosphatase 73, total bilirubin 2.6. MELD sodium score calculated at 27 (improving). IMAGING DATA: No current GI imaging is available for review. IMPRESSION: 1. End-stage liver disease with decompensation of hepatic function. Over the last 24 to 48 hours, the patient has had a mild improvement in his hepatic function as evidenced by decreasing T bili and INR, however, his creatinine does continue to rise with relatively anuric status which is probably driving his elevated MELD score at this time (although it is improving). 2. Acute kidney injury, most likely due to acute tubular necrosis per Nephrology evaluation with the possibility of hepatorenal syndrome, although unlikely at this time given improvement of his hepatic status. Nephrology is following. 3. Septic shock secondary to Escherichia coli bacteremia. The patient is still currently on antibiotics with adequate coverage and is in the process of being weaned off pressor support. 4. Hepatic ascites. The patient underwent paracentesis on February 04, 2020, with 8 L of fluid removed with no evidence of SBP. 5. Ulcerative colitis. Most recent colonoscopy showing quiescent disease with no evidence of ulcerative colitis both endoscopically or histologically. RECOMMENDATIONS: 1. Continue with antibiotic support as you are doing. 2. Continue with weaning the patient off pressors with improvement in clinical status. 3. Would continue IV albumin administration for at least the next 24 hours to improve hepatic and renal function. 4. Would continue to trend LFTs and INR daily for evaluation of liver function. We will continue to follow. Please call with any questions. Job ID: [id number]
--- NOTE | 2020-02-05 11:59 | PRG ---
DATE OF SERVICE: 02/05/20 SUBJECTIVE: Mr. Cesar is a 39-year-old white male, being followed up by the Renal Service for his acute kidney injury secondary to a possible ischemic acute tubular necrosis. Renal function has been relatively stable, but continues to remain on the oliguric side. He was initially admitted for sepsis with low blood pressure. He has end-stage liver disease. No acute events noted last night. OBJECTIVE: VITAL SIGNS: Blood pressure is 106/79, heart rate 97, respiratory rate 14, O2 saturation 98%, and temperature 96.6. GENERAL: The patient is minimally arousable, intubated on ventilator support. SKIN: Adequate turgor. HEENT: He has slightly pale conjunctivae. Anicteric sclerae. No neck mass. No carotid bruits. No JVD. CHEST: No deformities. LUNGS: Decreased breath sounds. HEART: Normal sinus rhythm. No murmur. No gallops. No rubs. ABDOMEN: Globular, soft, nontender, no masses. EXTREMITIES: Trace edema. MEDICATIONS: Of February 05, 2020, were reviewed. LABORATORY DATA: Of February 05, 2020; white count 13.1, hemoglobin 9. Sodium 140, potassium 3.4, chloride 101, carbon dioxide 24, BUN 47, creatinine 3.26, GFR 21 mL/minute, calcium 8.5, total bilirubin 2.6, and albumin 3.6. Chest x-ray of February 04, 2020, shows subsegmental volume loss and some degree of increased lung markings. ASSESSMENT AND PLAN: 1. Acute kidney injury-history and review of the urine sediment suggested he has a superimposed acute tubular necrosis. Management is supportive. We will time dialysis depending on the clinical situation. Currently, there is no indication for any emergent dialysis with this patient. He is not severely volume overloaded and/or his potassium is noted to be within normal. We will continue to re- evaluate this patient. 2. End-stage liver disease, supportive care. GI following. 3. Overall prognosis remains guarded with this patient. Recheck CBC and basic metabolic in a.m. Job ID: [id number] MTDD
--- NOTE | 2020-02-05 13:12 | PDOC.HOSPP ---
- Subjective Encounter Date: 02/05/20 Encounter Time: 10:40 Subjective: on vent, mild sedation, is obtunded - Objective Vital Signs & Weight: Vital Signs (12 hours) Temp Pulse Resp 02/05/20 12:00 98.1 F 18 02/05/20 11:11 88 02/05/20 10:00 13 02/05/20 08:00 98.2 F 16 02/05/20 07:44 99 02/05/20 06:00 16 02/05/20 04:00 16 02/05/20 02:14 65 02/05/20 02:00 16 Weight Admit Weight 221 lb Weight 236 lb 15.951 oz Most Recent Monitor Data Heart Rate from ECG 102 NIBP 123/91 NIBP BP-Mean 101 Respiration from ECG 11 SpO2 96 I&O: 02/04/20 02/05/20 02/06/20 06:59 06:59 06:59 Intake Total 3229.9 1589.8 170 Output Total 101 243 115 Balance 3128.9 1346.8 55 Result Diagrams: 02/05/20 04:10 02/05/20 04:10 Additional Labs: Accuchecks 02/05/20 02/04/20 02/04/20 10:37 22:56 16:50 POC Glucose 185 H 154 H 195 H 02/04/20 02/03/20 14:40 19:38 POC Glucose 202 H 282 H Hospitalist ROS - Medication Medications: Active Medications Generic Name Dose Route Start Last Admin Trade Name Freq PRN Reason Stop Dose Admin Albumin Human 25 gm 02/05/20 11:00 02/05/20 10:56 Albumin 25% 25 Gm/100 Ml Bot IVPB 02/06/20 05:01 25 gm 0500,1100,1700,2300 ABRAM Administration Hydrocortisone Sodium Succinate 50 mg 02/04/20 09:00 02/05/20 09:59 Hydrocortisone Sod Succ/Pf 100 Mg/2 Ml Vial IVP 50 mg BID ABRAM Administration Norepinephrine Bitartrate 250 mls @ 0 mls/hr 01/31/20 23:37 02/04/20 12:02 Levophed IVPB 250 mls PRN PRN Administration To maintain MAP > 65 Protocol Titrate Fentanyl Citrate 2,000 mcg/ 100 mls @ 0 mls/hr 01/31/20 23:45 02/04/20 11:04 Sodium Chloride IV 03/01/20 23:45 100 mls INF ABRAM Administration Protocol Per Protocol Pantoprazole Sodium 80 mg/ 100 mls @ 10 mls/hr 02/01/20 05:00 02/04/20 09:02 Sodium Chloride IVPB 100 mls INF ABRAM Administration Vasopressin 20 unit/ 51 mls @ 0 mls/hr 02/01/20 09:30 02/02/20 16:43 Miscellaneous Medication 1 IV 51 mls each/ Sodium Chloride INF ABRAM Administration Protocol As Directed Ceftriaxone Sodium 2 gm/ 100 mls @ 200 mls/hr 02/03/20 14:00 02/04/20 14:44 Sodium Chloride IVPB 100 mls Q24HR ABRAM Administration Insulin Human Lispro 0 units 01/31/20 23:37 02/05/20 10:32 Humalog 300 Units/3 Ml Vial SC 2 unit .MILD SLIDING SCALE PRN Administration Mild Correctional Scale Lorazepam 2 mg 01/31/20 23:45 02/02/20 10:32 Lorazepam 2 Mg/Ml Vial SLOW IVP 03/01/20 23:45 2 mg Q1H PRN Administration Breakthrough agitation Metoclopramide HCl 10 mg 02/03/20 08:45 02/05/20 10:18 Metoclopramide Hcl 10 Mg/2 Ml Vial IVP 10 mg Q6H ABRAM Administration Nystatin 0 gm 02/02/20 09:00 02/05/20 10:20 Nystatin Powder 15 Gm Bot TOP Not Given BID ABRAM - Exam General Appearance: ill appearing Eye: PERRL, scleral icterus ENT: no oropharyngeal lesions, dry oral mucosa Neck: supple, no JVD Heart: RRR, no murmur Respiratory: no wheezes, no rales Gastrointestinal: soft, normal bowel sounds, no guarding, no rigidity Extremities: no cyanosis, 2+ LE edema Neurological: cranial nerve grossly intact, no focal deficits Hosp A/P (1) Sepsis Code(s): A41.9 - SEPSIS, UNSPECIFIED ORGANISM Status: Acute Qualifiers: Sepsis type: Escherichia coli Sepsis acute organ dysfunction status: with acute organ dysfunction Severe sepsis acute organ dysfunction type: acute liver failure Severe sepsis shock status: with septic shock (2) GI bleed Code(s): K92.2 - GASTROINTESTINAL HEMORRHAGE, UNSPECIFIED Status: Acute Qualifiers: GI bleed type/associated pathology: unspecified gastrointestinal hemorrhage type Qualified Code(s): K92.2 - Gastrointestinal hemorrhage, unspecified (3) Cirrhosis Code(s): K74.60 - UNSPECIFIED CIRRHOSIS OF LIVER Status: Chronic Qualifiers: Hepatic cirrhosis type: alcoholic cirrhosis Ascites presence: with ascites Qualified Code(s): K70.31 - Alcoholic cirrhosis of liver with ascites (4) Hepatic encephalopathy Code(s): K72.90 - HEPATIC FAILURE, UNSPECIFIED WITHOUT COMA Status: Acute (5) Coagulopathy Status: Chronic (6) Acute respiratory failure with hypoxia Code(s): J96.01 - ACUTE RESPIRATORY FAILURE WITH HYPOXIA Status: Acute (7) Anemia due to acute blood loss Code(s): D62 - ACUTE POSTHEMORRHAGIC ANEMIA Status: Acute (8) Chronic alcohol use Code(s): Z72.89 - OTHER PROBLEMS RELATED TO LIFESTYLE Status: Chronic (9) Obesity (BMI 30.0-34.9) Code(s): E66.9 - OBESITY, UNSPECIFIED Status: Chronic (10) Ulcerative colitis Code(s): K51.90 - ULCERATIVE COLITIS, UNSPECIFIED, WITHOUT COMPLICATIONS Status: Chronic Qualifiers: Ulcerative colitis location: unspecified ulcerative colitis location Digestive disease complication type: without complication Qualified Code(s): K51.90 - Ulcerative colitis, unspecified, without complications (11) Bacteremia Code(s): R78.81 - BACTEREMIA Status: Acute (12) DAE (acute kidney injury) Code(s): N17.9 - ACUTE KIDNEY FAILURE, UNSPECIFIED Status: Acute - Plan has recieved total of 1 u prbc, 8 of FFP's and 3 of plasma is on protonix drip, off levophed drip (02/05/20) on ceftriaxone for e.coli bacteremia has high meld and kelly scores with poor prognosis and chronic alc abuse palliative care consultation for hospice s/p paracentesis with removal of 4 lts on 02/02/20 and 8 lts on 02/04/2020 with repeat paracentesis d/w mother and sister at bedside with palliative care, they are aware of very poor prognosis (02/03/20) they have opted for dnar not weanable per pulm adv today (is obtunded on mild sedation, needs to wake up more)
[2020-02-05] MEDS: cefTRIAXone\\ROCEPHIN 2 GM in Sodium Chloride 0.9% 100 ML IVPB SCH (14:37)
[2020-02-05] MEDS: Pantoprazole 80 MG in Sodium Chloride 0.9% 100 ML IVPB SCH (15:53)
[2020-02-06] MEDS: Metoclopramide HCl 10 MG/2 ML VIAL IVP SCH ×4 (02:27→20:48)
[2020-02-06] MEDS: HumaLOG 300 UNITS/3 ML VIAL SC PRN ×4 (04:25→22:47)
[2020-02-06 04:45] LABS: INR-International Normal Ratio 1.7; Prothrombin Time 20.7 sec (12.0-14.7)
[2020-02-06 04:46] LABS: PTT 34.7 sec (22.9-36.1)
[2020-02-06 05:01] LABS: ALT (SGPT) 23 U/L (8-55); AST (SGOT) 48 U/L (5-34); Albumin 3.6 g/dL (3.5-5.0); Alkaline Phosphatase 109 U/L (40-110); Anion Gap 16 mmol/L (10-20); BUN (Urea Nitrogen) 57 mg/dL (8.9-20.6); Bilirubin, Total 3.7 mg/dL (0.2-1.2); Calc. Creatinine Clearance 59 mL/min (70-130); Calcium 8.8 mg/dL (7.8-10.44); Carbon Dioxide 26 mmol/L (22-29); Chloride 102 mmol/L (98-107); Estimated GFR-MDRD 28; Globulin 1.7 g/dL (2.4-3.5); Glucose 185 mg/dL (70-105); Protein, Total 5.3 g/dL (6.0-8.3); Sodium 141 mmol/L (136-145)
[2020-02-06 05:11] LABS: Band 6 % (5-11); Hemoglobin 8.8 g/dL (14.0-18.0); Lymphocytes 6 % (21-51); MDiff Complete? YES; Mean Corpuscular HGB CONC 31.4 g/dL (32.0-36.0); Mean Corpuscular Hemoglobin 30.5 pg (27.0-31.0); Mean Corpuscular Volume 97.2 fL (78.0-98.0); Mean Platelet Volume 11.3 fL (7.4-10.4); Monocytes 6 % (0-10); Neutrophil 82 % (42-75); Platelet Count 67 thou/uL (130-400); Platelet Morphology Comment Appears Decreased; RBC Distribution Width 17.1 % (11.5-14.5); Red Blood Cell (RBC) Count 2.89 mill/uL (4.70-6.10); White Blood Cell (WBC) Count 6.2 thou/uL (4.8-10.8)
[2020-02-06] MEDS: Albumin 25% 25 GM/100 ML BOT IVPB SCH ×3 (05:26→19:37)
[2020-02-06 07:35] LABS: Actual Bicarbonate (HCO3a) 25.6 mEq/L (22-28); Base Excess (BEa) 1.8 mEq/L (-2.0 to +3.0); CO2 Tension 36.5 mmHg (35.0-45.0); Calcium, Ionized (arterial) 1.18 mmol/L (1.12-1.30); Carboxyhemoglobin (COHb) 0.6 gm% (0.0-3.0); Hemoglobin (Hb) 10.2 g/dL (14.0-18.0); Potassium - ABG Lab 2.92 mmol/L (3.70-5.30); pH, Arterial 7.46 (7.35-7.45)
[2020-02-06] MEDS: Nystatin Powder 15 GM BOT TOP SCH ×2 (08:03→20:48)
[2020-02-06] MEDS: Hydrocortisone Sod Succ/PF 100 mg/2 ml Vial IVP SCH ×2 (08:03→20:48)
[2020-02-06] MEDS ORDERED: Potassium Chloride 40 MEQ in Premix Bag 1 BAG IVPB SCH (09:30)
--- NOTE | 2020-02-06 09:54 | PRG ---
DATE OF SERVICE: 02/06/2020 SUBJECTIVE: Mr. Cesar is a 39-year-old white male, who was admitted for an acute respiratory failure and sepsis syndrome. He also has end-stage liver disease. We are following up this patient for his acute kidney injury. The acute kidney injury is secondary to an acute tubular necrosis. Of note, he underwent a paracentesis yesterday. 8 L was said to have been removed. With the said procedure, creatinine was noted to have improved. This suggests that there was some degree of compression on the kidneys. The renal function improved with decompression-8 L of ascitic fluid was said to have been removed. No acute events noted last night. OBJECTIVE: VITAL SIGNS: Blood pressure 128/98, heart rate 97, respiratory rate 12, O2 saturation 100%. GENERAL: The patient is not following commands, intubated on ventilator support. SKIN: Adequate turgor. HEENT: He has pinkish conjunctivae. Anicteric sclerae. No neck mass. No carotid bruits. No JVD. CHEST: No deformities. LUNGS: Clear breath sounds. HEART: Normal sinus rhythm. No murmur. No gallops. No rubs. ABDOMEN: Globular, soft, nontender. No masses. EXTREMITIES: Trace edema. MEDICATIONS: Medications of February 06, 2020, was reviewed. LABORATORY DATA: Laboratories of February 06, 2020, showed white count 6.2, hemoglobin 8.8. Sodium 141, potassium 3, chloride 102, carbon dioxide 26, BUN 57, creatinine 2.57, GFR 2.57, glucose 185, calcium 8.8, AST 48, ALT 23, albumin 3.6. ASSESSMENT AND PLAN: 1. Acute kidney injury-superimposed acute tubular necrosis. Improving renal function. No indication for any emergent hemodialysis with this patient. Creatinine is slightly improved from yesterday. Continue supportive care. Continue to optimize hemodynamics. 2. End-stage liver disease, supportive care-recently status post paracentesis with 8 L of ascitic fluid removed. 3. Sepsis syndrome-on empiric IV antibiotics. Overall, prognosis remains guarded. Again, no indication for any dialytic intervention. 4. Mild hypokalemia, p.r.n. potassium replacement. Job ID: [id number]
--- NOTE | 2020-02-06 09:57 | PRG ---
DATE OF SERVICE: 02/06/2020 SUBJECTIVE: A 39-year-old gentleman, off sedation this morning, a little bit more responsive. Moves all 4 extremities. He is a DNR. OBJECTIVE: VITAL SIGNS: Temperature 97, blood pressure 128/98, pulse 80, respirations 16, and saturations 100%. CHEST: Anterior rhonchi. CARDIAC: Sinus tach. ABDOMEN: Distended, but soft. LABORATORY DATA: White count 6000, platelet count is 67. Creatinine 2 and BUN 57. Coagulase-negative Staph in the right femoral line, which is going to be discontinued. X-ray is clear. IMPRESSION: 1. Status post multiorgan failure. 2. Cirrhosis. 3. End-stage respiratory failure. 4. Hepatorenal syndrome. 5. Gram-negative sepsis. PLAN: Continue to hold sedation as much as possible. Continue nutrition and PT. Antibiotic as outlined. He is status post paracentesis. His abdomen is still quite distended. He has been seen by Infectious Disease and is on ceftriaxone. TIME SPENT: One-half hour of critical care time. Job ID: [id number]
--- NOTE | 2020-02-06 10:24 | RAD ---
RADIOGRAPH CHEST 2 VIEW: DATE: 02/06/2020 TIME: 4:46 AM HISTORY: 39-year-old male with pneumonia COMPARISON: 02/05/2020 5:01 AM FINDINGS: Endotracheal tube, esophagogastric tube, and left subclavian central venous catheter, remain. Dense opacification of retrocardiac portion of left lower lobe with total silhouetting of the left he midiaphragm, unchanged. Elevated right hemidiaphragm. Silhouetting of the right medial hemidiaphragm contiguous with right pe rihilar haziness. No pulmonary edema. No pneumothorax. No interval change overall. IMPRESSION: 1. No interval change 2. Left pleural effusion and left lower lobe consolidation 3. Probable right pleural effusion and right medial basilar airspace opacification.
[2020-02-06] MEDS: Propofol 1,000 MG/100 ML VIAL IV PRN ×3 (11:22→22:22)
--- NOTE | 2020-02-06 12:58 | PDOC.HOSPP ---
- Subjective Encounter Date: 02/06/20 Encounter Time: 08:00 Subjective: awakens to verbal stimuli, not oriented, on very mild to no sedation, on vent - Objective Vital Signs & Weight: Vital Signs (12 hours) Temp Pulse Resp Pulse Ox 02/06/20 12:00 97.9 F 21 H 02/06/20 10:44 109 H 02/06/20 10:00 28 H 02/06/20 08:00 97.7 F 17 02/06/20 07:36 100 02/06/20 07:19 92 02/06/20 06:00 20 02/06/20 04:00 97.6 F 18 02/06/20 02:50 96 02/06/20 02:00 20 02/06/20 01:26 100 Weight Admit Weight 221 lb Weight 228 lb 9.91 oz Most Recent Monitor Data Heart Rate from ECG 96 NIBP 114/84 NIBP BP-Mean 94 Respiration from ECG 29 SpO2 100 I&O: 02/05/20 02/06/20 02/07/20 06:59 06:59 06:59 Intake Total 1589.8 2197 100 Output Total 243 895 425 Balance 1346.8 1302 -325 Result Diagrams: 02/06/20 04:20 02/06/20 04:20 Additional Labs: Accuchecks 02/06/20 02/05/20 09:10 22:21 POC Glucose 190 H 178 H Hospitalist ROS - Medication Medications: Active Medications Generic Name Dose Route Start Last Admin Trade Name Freq PRN Reason Stop Dose Admin Hydrocortisone Sodium Succinate 50 mg 02/04/20 09:00 02/06/20 08:03 Hydrocortisone Sod Succ/Pf 100 Mg/2 Ml Vial IVP 50 mg BID ABRAM Administration Norepinephrine Bitartrate 250 mls @ 0 mls/hr 01/31/20 23:37 02/04/20 12:02 Levophed IVPB 250 mls PRN PRN Administration To maintain MAP > 65 Protocol Titrate Fentanyl Citrate 2,000 mcg/ 100 mls @ 0 mls/hr 01/31/20 23:45 02/04/20 11:04 Sodium Chloride IV 03/01/20 23:45 100 mls INF ABRAM Administration Protocol Per Protocol Pantoprazole Sodium 80 mg/ 100 mls @ 10 mls/hr 02/01/20 05:00 02/05/20 15:53 Sodium Chloride IVPB 100 mls INF ABRAM Administration Vasopressin 20 unit/ 51 mls @ 0 mls/hr 02/01/20 09:30 02/02/20 16:43 Miscellaneous Medication 1 IV 51 mls each/ Sodium Chloride INF ABRAM Administration Protocol As Directed Ceftriaxone Sodium 2 gm/ 100 mls @ 200 mls/hr 02/03/20 14:00 02/05/20 14:37 Sodium Chloride IVPB 100 mls Q24HR ABRAM Administration Potassium Chloride 40 meq/ 100 mls @ 25 mls/hr 02/06/20 09:30 02/06/20 10:28 Device IVPB 02/06/20 13:29 100 mls NOW ABRAM Administration Insulin Human Lispro 0 units 01/31/20 23:37 02/06/20 09:06 Humalog 300 Units/3 Ml Vial SC 2 unit .MILD SLIDING SCALE PRN Administration Mild Correctional Scale Lorazepam 2 mg 01/31/20 23:45 02/02/20 10:32 Lorazepam 2 Mg/Ml Vial SLOW IVP 03/01/20 23:45 2 mg Q1H PRN Administration Breakthrough agitation Metoclopramide HCl 10 mg 02/03/20 08:45 02/06/20 08:03 Metoclopramide Hcl 10 Mg/2 Ml Vial IVP 10 mg Q6H ABRAM Administration Nystatin 0 gm 02/02/20 09:00 02/06/20 08:03 Nystatin Powder 15 Gm Bot TOP 1 applic BID ABRAM Administration Propofol 1,000 mg 01/31/20 23:45 02/06/20 11:22 Propofol 1,000 Mg/100 Ml Vial IV 03/01/20 23:45 1,000 mg INF PRN Administration TO ACHIEVE GOAL RASS Protocol - Exam General Appearance: ill appearing Eye: scleral icterus ENT: no oropharyngeal lesions, dry oral mucosa Neck: supple, no JVD Heart: RRR, no murmur Respiratory: no wheezes, rales Gastrointestinal: soft, normal bowel sounds, no guarding, no rigidity, distended Extremities: no cyanosis, 2+ LE edema Neurological: cranial nerve grossly intact, no focal deficits Hosp A/P (1) Sepsis Code(s): A41.9 - SEPSIS, UNSPECIFIED ORGANISM Status: Acute Qualifiers: Sepsis type: Escherichia coli Sepsis acute organ dysfunction status: with acute organ dysfunction Severe sepsis acute organ dysfunction type: acute liver failure Severe sepsis shock status: with septic shock (2) GI bleed Code(s): K92.2 - GASTROINTESTINAL HEMORRHAGE, UNSPECIFIED Status: Acute Qualifiers: GI bleed type/associated pathology: unspecified gastrointestinal hemorrhage type Qualified Code(s): K92.2 - Gastrointestinal hemorrhage, unspecified (3) Cirrhosis Code(s): K74.60 - UNSPECIFIED CIRRHOSIS OF LIVER Status: Chronic Qualifiers: Hepatic cirrhosis type: alcoholic cirrhosis Ascites presence: with ascites Qualified Code(s): K70.31 - Alcoholic cirrhosis of liver with ascites (4) Hepatic encephalopathy Code(s): K72.90 - HEPATIC FAILURE, UNSPECIFIED WITHOUT COMA Status: Acute (5) Coagulopathy Status: Chronic (6) Acute respiratory failure with hypoxia Code(s): J96.01 - ACUTE RESPIRATORY FAILURE WITH HYPOXIA Status: Acute (7) Anemia due to acute blood loss Code(s): D62 - ACUTE POSTHEMORRHAGIC ANEMIA Status: Acute (8) Chronic alcohol use Code(s): Z72.89 - OTHER PROBLEMS RELATED TO LIFESTYLE Status: Chronic (9) Obesity (BMI 30.0-34.9) Code(s): E66.9 - OBESITY, UNSPECIFIED Status: Chronic (10) Ulcerative colitis Code(s): K51.90 - ULCERATIVE COLITIS, UNSPECIFIED, WITHOUT COMPLICATIONS Status: Chronic Qualifiers: Ulcerative colitis location: unspecified ulcerative colitis location Digestive disease complication type: without complication Qualified Code(s): K51.90 - Ulcerative colitis, unspecified, without complications (11) Bacteremia Code(s): R78.81 - BACTEREMIA Status: Acute (12) DAE (acute kidney injury) Code(s): N17.9 - ACUTE KIDNEY FAILURE, UNSPECIFIED Status: Acute - Plan has recieved total of 1 u prbc, 8 of FFP's and 3 of plasma (ffp's were given for safe paracentesis mostly) is on protonix drip, off levophed drip (02/05/20) on ceftriaxone for e.coli bacteremia has high meld and kelly scores with poor prognosis and chronic alc abuse not a candidate for transplant now due to sepsis and bacteremia plus suspected hepatorenal syndrome palliative care consultation for hospice s/p paracentesis with removal of 4 lts on 02/02/20 and 8 lts on 02/04/2020 with repeat paracentesis, might require another one with his abd filling up. d/w mother and sister at bedside with palliative care, they are aware of very poor prognosis (02/03/20) they have opted for dnar needs to wake up more for weaning or extubation
[2020-02-06] MEDS: cefTRIAXone\\ROCEPHIN 2 GM in Sodium Chloride 0.9% 100 ML IVPB SCH (13:18)
[2020-02-06 13:42] LABS: O2 Tension (PaO2), arterial 52.7 mmHg (80.0-100.0); Puncture Site RRA
[2020-02-06 13:43] LABS: ALV-art Gradient 222.525 mmHg (0-20)
--- NOTE | 2020-02-06 13:50 | PRG ---
DATE OF SERVICE: 02/06/2020 REASON FOR CONSULTATION: Cirrhosis, ulcerative colitis. SUBJECTIVE: Per nursing staff, the Levophed was also turned off yesterday and the patient is able to maintain adequate pressures while on no pressure support over the last 24 hours. He did have a dark green bowel movement this morning with no evidence of melena or blood in it. Otherwise, he has been minimally responsive despite sedation breaks. Otherwise, no mention of fevers, hematemesis, melena, hematochezia, or abdominal tenderness. OBJECTIVE: VITAL SIGNS: Temperature 97.9, pulse 96, blood pressure 114/84, respiratory rate 29, saturating 100% on mechanical ventilation. GENERAL: The patient was lying in bed, in no acute distress, intubated and sedated on mechanical ventilation. RESPIRATORY: Coarse breath sounds auscultated in all lung bedoya consistent with mechanical ventilation. CARDIOVASCULAR: Regular rate and rhythm. ABDOMEN: Hypoactive bowel sounds. Soft. [id number] abdominal distention. No grimacing to palpation. EXTREMITIES: 1+/2+ bilateral edema in both the upper and lower extremities. LABORATORY DATA: CBC with a white blood cell count of 6.2, hemoglobin 8.8, hematocrit 28.1, platelets 82. INR 1.7. Chemistry with a sodium of 141, potassium 3, chloride 112, CO2 of 26, BUN 57, creatinine 2.57, glucose 185. AST 48, ALT 23, alkaline phosphatase 109, total bilirubin 3.7, MELD sodium score calculated at 26 (improving). IMAGING DATA: No current GI imaging is available for review. IMPRESSION: 1. End-stage liver disease with decompensation of hepatic function. The patient is presenting with end-stage liver disease, further complicated by and Escherichia coli bacteremia. During the course of this hospitalization, he has had an increase in INR and total bilirubin in addition to worsening renal function, but his INR and renal function have been improving over the last 24 to 48 hours, indicating response to treatment. At this time, his total bilirubin still remains high, but his calculated MELD score is decreasing indicating return of hepatic function. 2. Acute kidney injury, most likely due to acute tubular necrosis per Nephrology with the possibility of hepatorenal syndrome, although unlikely at this time due to improvement of his renal status, now continue to have decrease in creatinine indicating possible return of renal function and increased urinary output. 3. Septic shock secondary to Escherichia coli bacteremia, still currently on antibiotics with adequate coverage with no pressor support at this time. 4. Hepatic ascites, paracentesis on February 04, 2020, with 8 L of fluid removed with no evidence of SBP. 5. Ulcer colitis. No evidence of recent flare and most recent colonoscopy a few months ago showing quiescent disease with no evidence of ulcerative colitis both endoscopically and histologically. RECOMMENDATIONS: 1. Continue with antibiotic regimen. 2. We will continue IV albumin administration for the next 24 hours, then would discontinue. 3. Continue to trend LFTs and INR daily for evaluation of liver function. 4. We would attempt to minimize any sedation or conscious altering medications. 5. If the patient is not waking up and responding appropriately, could consider treatment for hepatic encephalopathy at that point. We will continue to follow. Please call with any questions. Job ID: [id number]
[2020-02-06] MEDS: Pantoprazole 80 MG in Sodium Chloride 0.9% 100 ML IVPB SCH (16:02)
[2020-02-07] MEDS: Albumin 25% 25 GM/100 ML BOT IVPB SCH ×3 (01:54→18:44)
[2020-02-07] MEDS: Pantoprazole 80 MG in Sodium Chloride 0.9% 100 ML IVPB SCH (02:11)
[2020-02-07] MEDS: Propofol 1,000 MG/100 ML VIAL IV PRN (02:45)
[2020-02-07] MEDS: Metoclopramide HCl 10 MG/2 ML VIAL IVP SCH ×4 (03:01→20:09)
[2020-02-07] MEDS: HumaLOG 300 UNITS/3 ML VIAL SC PRN ×4 (06:51→21:52)
[2020-02-07 07:10] LABS: Hemoglobin 9.2 g/dL (14.0-18.0); Mean Corpuscular HGB CONC 32.7 g/dL (32.0-36.0); Mean Corpuscular Hemoglobin 31.6 pg (27.0-31.0); Mean Corpuscular Volume 96.7 fL (78.0-98.0); Mean Platelet Volume 12.4 fL (7.4-10.4); Platelet Count 72 thou/uL (130-400); RBC Distribution Width 17.5 % (11.5-14.5); White Blood Cell (WBC) Count 3.9 thou/uL (4.8-10.8)
[2020-02-07 07:11] LABS: INR-International Normal Ratio 1.9; PTT 34.4 sec (22.9-36.1); Prothrombin Time 21.7 sec (12.0-14.7)
[2020-02-07 07:17] LABS: Analyzer IN Cardio ER; Base Excess (BEa) 1.5 mEq/L (-2.0 to +3.0); CO2 Tension 34.8 mmHg (35.0-45.0); Calcium, Ionized (arterial) 1.18 mmol/L (1.12-1.30); Carboxyhemoglobin (COHb) 0.3 gm% (0.0-3.0); Hemoglobin (Hb) 9.6 g/dL (14.0-18.0); Potassium - ABG Lab 2.84 mmol/L (3.70-5.30); pH, Arterial 7.47 (7.35-7.45)
[2020-02-07 07:21] LABS: Puncture Site LBA
[2020-02-07 07:21] LABS: ALT (SGPT) 25 U/L (8-55); AST (SGOT) 52 U/L (5-34); Albumin 3.7 g/dL (3.5-5.0); Alkaline Phosphatase 152 U/L (40-110); Anion Gap 13 mmol/L (10-20); BUN (Urea Nitrogen) 53 mg/dL (8.9-20.6); Calc. Creatinine Clearance 93 mL/min (70-130); Calcium 8.7 mg/dL (7.8-10.44); Carbon Dioxide 28 mmol/L (22-29); Chloride 107 mmol/L (98-107); Estimated GFR-MDRD 50; Globulin 1.5 g/dL (2.4-3.5); Glucose 216 mg/dL (70-105); Protein, Total 5.2 g/dL (6.0-8.3); Sodium 145 mmol/L (136-145)
[2020-02-07 07:24] LABS: Potassium 2.8 mmol/L (3.5-5.1)
[2020-02-07 07:56] LABS: Anisocytosis SLIGHT = 6-15 cells (100X) (0-5/hpf); Band 5 % (5-11); Large Platelets SLIGHT; Lymphocytes 5 % (21-51); MDiff Complete? YES; Monocytes 14 % (0-10); Neutrophil 76 % (42-75); Platelet Morphology Comment Appears Decreased; Poikilocytosis MODERATE=16-30 cells (100X) (0-5/hpf); Polychromasia SLIGHT = 2-3 cells (100X) (0-2/hpf)
--- NOTE | 2020-02-07 08:18 | RAD ---
PORTABLE CHEST: HISTORY: CCU followup. Ventilator followup. COMPARISON: 02/06/2020. FINDINGS: Bilateral effusions and bibasilar atelectasis. Poor inspiration. ET tube and NG tube remain in plac e. Central line is unchanged. IMPRESSION: No significant change from yesterday. POS: OFF
[2020-02-07] MEDS: Potassium Chloride 40 MEQ in Premix Bag 1 BAG IVPB SCH ×2 (08:32→13:49)
[2020-02-07] MEDS: Hydrocortisone Sod Succ/PF 100 mg/2 ml Vial IVP SCH ×2 (08:33→20:15)
[2020-02-07] MEDS: Nystatin Powder 15 GM BOT TOP SCH ×2 (08:37→20:09)
--- NOTE | 2020-02-07 09:45 | PRG ---
DATE OF SERVICE: 02/07/2020 SUBJECTIVE: This morning, he is more responsive. X-ray still shows bibasilar atelectatic changes, but stable. OBJECTIVE: VITAL SIGNS: Pulse 75, blood pressure 130/89, respiratory rate 18, and saturations 90%. CHEST: Rhonchi without any wheezing. CARDIAC: Normal S1 and S2. No gallops. ABDOMEN: Distended and soft. LABORATORY DATA: White count 3000, H and H 9 and 28, and platelets 72. A pO2 of 78, pCO2 of rate of 8 BUN and creatinine 53 and 1.57. Bilirubin is 4. ASSESSMENT: 1. Respiratory failure. 2. Renal failure, slowly improving. 3. Ascites. 4. Morbid obesity and alcoholic liver disease. PLAN: We are going to cut back his rate to 4. Hopefully, we can get him off the vent in the next 24 to 48 hours. He is a DNR. Job ID: [id number]
--- NOTE | 2020-02-07 09:56 | PRG ---
DATE OF SERVICE: 02/07/2020 SUBJECTIVE: Mr. Cesar is a 39-year-old white male, initially admitted for sepsis syndrome, acute respiratory failure, and followed up by the Renal Service for his acute kidney injury. His acute kidney injury was secondary to an acute tubular necrosis. Supportive management was done with this patient. He also has a diagnosis of end-stage liver disease. Renal function in the last 48 hours has been noted to slowly improve. He has also picked up with his urine output. No acute events noted last night. He is currently being weaned off from his sedation. OBJECTIVE: VITAL SIGNS: Blood pressure 122/67, heart rate 75, respiratory rate 20, and O2 saturation 97%. GENERAL: The patient is minimally arousable, intubated on ventilator support. SKIN: Adequate turgor. HEENT: He has pinkish conjunctivae. Anicteric sclerae. No neck mass. No carotid bruits. No JVD. CHEST: No deformities. LUNGS: Clear breath sounds. No wheezing. No crackles. HEART: Normal sinus rhythm. No murmur. No gallops. No rubs. ABDOMEN: Globular. Soft. Nontender. No masses. EXTREMITIES: No edema. No deformities. MEDICATIONS: Medications of February 07, 2020, reviewed. LABORATORY DATA: Laboratories of February 07, 2020; white count 3.9 and hemoglobin 9.2. Sodium 145, potassium 2.8, chloride 107, carbon dioxide 28, BUN 53, creatinine 1.57, GFR 15 mL/minute, glucose 216, calcium 8.7, AST 52, ALT 25, and albumin 3.7. ASSESSMENT AND PLAN: 1. Acute kidney injury - secondary to acute tubular necrosis. Renal function is improving and urine output has increased. This may suggest some recovery of the renal function from his underlying acute tubular necrosis. Continue supportive care. There is no indication for any dialytic intervention. 2. Hypokalemia p.r.n. potassium replacement. 3. End-stage liver disease. Continue supportive care. 4. Acute respiratory failure-sedation is currently being weaned off. 5. Agree with current management. Job ID: [id number]
--- NOTE | 2020-02-07 11:36 | PDOC.PALPN ---
Palliative Progress Note - Subjective Remains intubated with mechanical ventilation, Levophed was stopped and he has had not additional pressure support. Hope is to wean from vent in next 24-48 hours. Responsive. Paracentesis removing a reported 8L on 02/04/2020. Continues on ABX therapy for e coli bacteremia. - Objective Vital Signs: Vital Signs - Most Recent Temp Pulse Resp BP Pulse Ox 97.5 F L 86 25 H 124/96 H 98 02/07/20 08:00 02/07/20 10:10 02/07/20 10:00 02/07/20 10:10 02/06/20 20:00 - Physical Exam Constitutional: encephalitic, ill appearing HEENT: moist MMs Respiratory: no wheezing Deviation from normal: Adventicious Cardiovascular: RRR Deviation from normal: Distended Genitourinary: calderon catheter Musculoskeletal: no cyanosis, edema present Neurology: no focal deficits Skin: cap refill <2 seconds - Assessment (1) Acute respiratory failure with hypoxia Code(s): J96.01 - ACUTE RESPIRATORY FAILURE WITH HYPOXIA Current Visit: Yes Status: Acute (2) Hepatic encephalopathy Code(s): K72.90 - HEPATIC FAILURE, UNSPECIFIED WITHOUT COMA Current Visit: Yes Status: Acute (3) Sepsis Code(s): A41.9 - SEPSIS, UNSPECIFIED ORGANISM Current Visit: Yes Status: Acute Qualifiers: Sepsis type: Escherichia coli Sepsis acute organ dysfunction status: with acute organ dysfunction Severe sepsis acute organ dysfunction type: acute liver failure Severe sepsis shock status: with septic shock (4) Cirrhosis Code(s): K74.60 - UNSPECIFIED CIRRHOSIS OF LIVER Current Visit: Yes Status: Chronic Qualifiers: Hepatic cirrhosis type: alcoholic cirrhosis Ascites presence: with ascites Qualified Code(s): K70.31 - Alcoholic cirrhosis of liver with ascites (5) Coagulopathy Current Visit: Yes Status: Chronic (6) GI bleed Code(s): K92.2 - GASTROINTESTINAL HEMORRHAGE, UNSPECIFIED Current Visit: Yes Status: Acute Qualifiers: GI bleed type/associated pathology: unspecified gastrointestinal hemorrhage type Qualified Code(s): K92.2 - Gastrointestinal hemorrhage, unspecified (7) Palliative care encounter Code(s): Z51.5 - ENCOUNTER FOR PALLIATIVE CARE Current Visit: No Status: Acute - Plan Plan: Hope is to extubated in next 24-48 hours. MELD score improving. No recent blood product transfusion. Patient brothers have expressed concern in relation to patient transition back to home setting and continued alcohol use. Consideration may be for patient to transition to skilled/rehab setting to gain physical strength. While he is there, if agreeable have family locate a alcohol rehab facility for patient to transition to if he is stable and agreeable. In past patient and mother were given phone numbers as well as meeting schedule for AA/[facility] in their community, if they agreeable will provide the information again prior to transition home. If patient does not qualify or is agreeable to rehab either physical or inpatient for alcohol abuse will revisit goal of care, revisiting hospice. Please also refer to Bhargav Tovar RN notes in note section [35] minutes spent on this encounter with >50% of the time in counseling and coordination of care. - ROS Non Response: due to endotracheal tube, due to mental status
--- NOTE | 2020-02-07 12:34 | PRG ---
DATE OF SERVICE: 02/07/2020 REASON FOR CONSULTATION: Cirrhosis, ulcerative colitis. SUBJECTIVE: Since turning the pressor support off yesterday, the patient has not required any additional medications in that regard and has been able to maintain normotensive pressures since then. With sedation breaks, the patient is slowly waking up and has been able to respond to verbal and tactile stimuli. He did have a dark green bowel movement this morning as well with no evidence of melena or hematochezia. Otherwise, there was no evidence of fevers, hematemesis, melena, hematochezia, or abdominal tenderness. OBJECTIVE: VITAL SIGNS: Temperature 97.5, pulse 86, blood pressure 124/96, respiratory rate 17, saturating 98% on mechanical ventilation. GENERAL: The patient was lying in bed, in no acute distress, intubated and sedated on mechanical ventilation, but with sedation, is responding to verbal stimuli. RESPIRATORY: Coarse breath sounds auscultated in all lung bedoya consistent with mechanical ventilation. CARDIOVASCULAR: Regular rate and rhythm. ABDOMEN: Normoactive bowel sounds. Soft. Moderate abdominal distention. No grimacing to palpation. Positive shifting dullness. EXTREMITIES: Trace/1+ bilateral edema in the both upper and lower extremities. LABORATORY DATA: CBC with a white blood cell count of 3.9, hemoglobin 9.2, hematocrit 28.1, platelets 72. INR 1.9. Chemistry with a sodium of 145, potassium 2.8, chloride 107, CO2 of 28, BUN 53, creatinine 1.57, glucose 216, AST 52, ALT 25, alkaline phosphatase 152, total bilirubin 4.0. MELD sodium score calculated at 23 (improving). IMAGING DATA: No current GI imaging is available for review. IMPRESSION: 1. End-stage liver disease with decompensation of hepatic function secondary to Escherichia coli bacteremia. During the course of this hospitalization, the patient is now having improvement in his hepatic status with a decreasing INR, although, his total bilirubin continues to slightly up-trend. With improvement of his renal function and urine output, his MELD score continues to drop, indicative of improvement in his overall hepatic status. 2. Acute kidney injury, most likely due to acute tubular necrosis. The patient continues to have improvement of his renal function with urinary output now 50% to 70 mL/hour. 3. Septic shock secondary to Escherichia coli bacteremia, still currently on antibiotics with adequate coverage with no pressor support at this time. 4. Hepatic ascites with 8 L of fluid removed on February 04, 2020, with no evidence of SBP. However, with inability to place the patient on diuretics, it seems he is reaccumulating. 5. Ulcerative colitis. No evidence of recent flare and with a most recent colonoscopy showing quiescent disease. RECOMMENDATIONS: 1. Continue with antibiotic regimen. 2. Would complete his IV albumin course and then discontinue today. 3. Continue to trend LFTs and INR daily for evaluation of liver function. 4. Attempt to minimize any sedation or conscious altering medications. 5. Defer to critical care team for timing of extubation. We will continue to follow. Please call with any questions. Job ID: [id number]
[2020-02-07] MEDS: cefTRIAXone\\ROCEPHIN 2 GM in Sodium Chloride 0.9% 100 ML IVPB SCH (13:50)
--- NOTE | 2020-02-07 15:42 | PDOC.HOSPP ---
- Subjective Encounter Date: 02/07/20 non-verbal - Objective Vital Signs & Weight: Vital Signs (12 hours) Temp Pulse Resp BP Pulse Ox 02/07/20 14:00 26 H 02/07/20 12:00 98.0 F 23 H 02/07/20 10:10 86 124/96 H 02/07/20 10:00 25 H 02/07/20 08:00 97.5 F L 22 H 97 02/07/20 07:04 75 122/87 02/07/20 06:00 20 02/07/20 04:00 98 F 22 H Weight Admit Weight 221 lb Weight 227 lb 4.745 oz Most Recent Monitor Data Heart Rate from ECG 80 NIBP 131/96 NIBP BP-Mean 107 Respiration from ECG 24 SpO2 96 I&O: 02/06/20 02/07/20 02/08/20 06:59 06:59 06:59 Intake Total 2197 2502 Output Total 895 1660 570 Balance 1302 842 -570 Result Diagrams: 02/07/20 06:18 02/07/20 06:18 Additional Labs: Accuchecks 02/07/20 02/07/20 02/06/20 10:44 06:50 22:51 POC Glucose 179 H 205 H 206 H 02/06/20 02/06/20 02/05/20 15:45 04:27 16:25 POC Glucose 190 H 167 H 187 H Laboratory Tests 02/05/20 04:10 Potassium 3.4 L Hospitalist ROS - Medication Medications: Active Medications Generic Name Dose Route Start Last Admin Trade Name Freq PRN Reason Stop Dose Admin Hydrocortisone Sodium Succinate 50 mg 02/04/20 09:00 02/07/20 08:33 Hydrocortisone Sod Succ/Pf 100 Mg/2 Ml Vial IVP 50 mg BID ABRAM Administration Norepinephrine Bitartrate 250 mls @ 0 mls/hr 01/31/20 23:37 02/04/20 12:02 Levophed IVPB 250 mls PRN PRN Administration To maintain MAP > 65 Protocol Titrate Fentanyl Citrate 2,000 mcg/ 100 mls @ 0 mls/hr 01/31/20 23:45 02/04/20 11:04 Sodium Chloride IV 03/01/20 23:45 100 mls INF ABRAM Administration Protocol Per Protocol Vasopressin 20 unit/ 51 mls @ 0 mls/hr 02/01/20 09:30 02/02/20 16:43 Miscellaneous Medication 1 IV 51 mls each/ Sodium Chloride INF ABRAM Administration Protocol As Directed Ceftriaxone Sodium 2 gm/ 100 mls @ 200 mls/hr 02/03/20 14:00 02/07/20 13:50 Sodium Chloride IVPB 100 mls Q24HR ABRAM Administration Potassium Chloride 40 meq/ 100 mls @ 25 mls/hr 02/07/20 08:00 02/07/20 13:49 Device IVPB 02/07/20 15:59 100 mls Q4H ABRAM Administration Insulin Human Lispro 0 units 01/31/20 23:37 02/07/20 10:40 Humalog 300 Units/3 Ml Vial SC 2 unit .MILD SLIDING SCALE PRN Administration Mild Correctional Scale Lorazepam 2 mg 01/31/20 23:45 02/02/20 10:32 Lorazepam 2 Mg/Ml Vial SLOW IVP 03/01/20 23:45 2 mg Q1H PRN Administration Breakthrough agitation Metoclopramide HCl 10 mg 02/03/20 08:45 02/07/20 12:58 Metoclopramide Hcl 10 Mg/2 Ml Vial IVP Not Given Q6H ABRAM Nystatin 0 gm 02/02/20 09:00 02/07/20 08:37 Nystatin Powder 15 Gm Bot TOP 1 applic BID ABRAM Administration Propofol 1,000 mg 01/31/20 23:45 02/07/20 02:45 Propofol 1,000 Mg/100 Ml Vial IV 03/01/20 23:45 1,000 mg INF PRN Administration TO ACHIEVE GOAL RASS Protocol - Exam General Appearance: NAD General - other findings: Awake. Intubated. Heart: RRR, no murmur, no gallops, no rubs, normal peripheral pulses Respiratory: CTAB, no wheezes, no rales, no ronchi, normal chest expansion, no tachypnea, normal percussion Gastrointestinal: soft, non-tender, non-distended, normal bowel sounds, no palpable masses, no hepatomegaly, no splenomegaly, no bruit Extremities: no cyanosis, no clubbing, no edema Skin: normal turgor Musculoskeletal: generalized weakness Hosp A/P (1) DAE (acute kidney injury) Code(s): N17.9 - ACUTE KIDNEY FAILURE, UNSPECIFIED Status: Acute (2) Acute respiratory failure with hypoxia Code(s): J96.01 - ACUTE RESPIRATORY FAILURE WITH HYPOXIA Status: Acute (3) Bacteremia Code(s): R78.81 - BACTEREMIA Status: Acute (4) Hepatic encephalopathy Code(s): K72.90 - HEPATIC FAILURE, UNSPECIFIED WITHOUT COMA Status: Acute (5) Sepsis Code(s): A41.9 - SEPSIS, UNSPECIFIED ORGANISM Status: Acute Qualifiers: Sepsis type: Escherichia coli Sepsis acute organ dysfunction status: with acute organ dysfunction Severe sepsis acute organ dysfunction type: acute liver failure Severe sepsis shock status: with septic shock (6) Cirrhosis Code(s): K74.60 - UNSPECIFIED CIRRHOSIS OF LIVER Status: Chronic Qualifiers: Hepatic cirrhosis type: alcoholic cirrhosis Ascites presence: with ascites Qualified Code(s): K70.31 - Alcoholic cirrhosis of liver with ascites (7) Coagulopathy Status: Chronic (8) Acute kidney injury Code(s): N17.9 - ACUTE KIDNEY FAILURE, UNSPECIFIED Status: Acute (9) Anemia due to acute blood loss Code(s): D62 - ACUTE POSTHEMORRHAGIC ANEMIA Status: Acute (10) Chronic liver disease Code(s): K76.9 - LIVER DISEASE, UNSPECIFIED Status: Acute (11) E coli bacteremia Code(s): R78.81 - BACTEREMIA; B96.20 - UNSP ESCHERICHIA COLI THE CAUSE OF DISEASES CLASSD ELSWHR Status: Acute (12) Chronic alcohol use Code(s): Z72.89 - OTHER PROBLEMS RELATED TO LIFESTYLE Status: Chronic (13) Ulcerative colitis Code(s): K51.90 - ULCERATIVE COLITIS, UNSPECIFIED, WITHOUT COMPLICATIONS Status: Chronic Qualifiers: Ulcerative colitis location: unspecified ulcerative colitis location Digestive disease complication type: without complication Qualified Code(s): K51.90 - Ulcerative colitis, unspecified, without complications - Plan Acute hypoxic respiratory failure: Continuing to wean the ventilator with hopes of extubation soon. Pulmonology following. Acute renal failure: Nephrology following. Renal function appears to be stabilizing and urine output is improving. Continue with the albumin. Chronic liver disease: Secondary to alcoholism. Does not appear to have significant cirrhotic changes to the liver at this point. He does have coagulopathy. He has had large volume ascites throughout the hospitalization. GI following. Initially had a very high meld score but it seems to be improving as his renal function improves. E. coli bacteremia: Could be resultant from the ascites or from ulcerative colitis. Seems to be improving. Continue Rocephin.
[2020-02-07 16:12] LABS: Anion Gap 15 mmol/L (10-20); BUN (Urea Nitrogen) 49 mg/dL (8.9-20.6); Calc. Creatinine Clearance 121 mL/min (70-130); Calcium 8.9 mg/dL (7.8-10.44); Carbon Dioxide 25 mmol/L (22-29); Chloride 108 mmol/L (98-107); Estimated GFR-MDRD 67; Glucose 173 mg/dL (70-105); Potassium 3.6 mmol/L (3.5-5.1); Sodium 144 mmol/L (136-145)
--- NOTE | 2020-02-07 16:41 | ULT ---
Ultrasound-guided paracentesis: HISTORY: Recurrent ascites FINDINGS: Informed consent obtained prior to the procedure. Preprocedural imaging demonstrated intrap eritoneal free fluid. An area was marked in the left lower quadrant mid axillary line, and then meticulously prepped and dr aped in normal sterile fashion and anesthetized with 1% buffered lidocaine. With direct sonographic guidance, a 19-gauge needle and 5 Urdu Yueh catheter were advanced into the abdomen. After the return of fluid, the catheter was advanced, and the needle was removed. Approximately 6 L of clear straw-colored fluid was aspirated. The introducer sheath was removed, and hemostasis was achieved with direct pressure. A dry sterile dressing was placed. The patient tolerated the procedure well and without immediate complication. IMPRESSION: Technically successful ultrasound-guided paracentesis.
[2020-02-07] MEDS: Pantoprazole 40 MG VIAL IVP SCH (20:10)
[2020-02-07] MEDS: Ondansetron PF 4 MG/2 ML Vial IVP PRN (21:48)
[2020-02-08] MEDS: Metoclopramide HCl 10 MG/2 ML VIAL IVP SCH ×4 (02:49→20:04)
[2020-02-08] MEDS: HumaLOG 300 UNITS/3 ML VIAL SC PRN ×4 (04:08→21:35)
[2020-02-08 06:04] LABS: INR-International Normal Ratio 1.7; PTT 31.2 sec (22.9-36.1); Prothrombin Time 20.4 sec (12.0-14.7)
[2020-02-08 06:14] LABS: Hemoglobin 9.9 g/dL (14.0-18.0); Mean Corpuscular HGB CONC 32.3 g/dL (32.0-36.0); Mean Corpuscular Hemoglobin 31.4 pg (27.0-31.0); Mean Corpuscular Volume 97.3 fL (78.0-98.0); Mean Platelet Volume 11.9 fL (7.4-10.4); Platelet Count 78 thou/uL (130-400); RBC Distribution Width 17.5 % (11.5-14.5); Red Blood Cell (RBC) Count 3.16 mill/uL (4.70-6.10); White Blood Cell (WBC) Count 7.8 thou/uL (4.8-10.8)
[2020-02-08 06:30] LABS: Band 11 % (5-11); Lymphocytes 5 % (21-51); MDiff Complete? YES; Metamyelocyte 1 % (0-0); Monocytes 9 % (0-10); Myelocyte 5 % (0-0); Neutrophil 69 % (42-75); Platelet Morphology Comment Appears Decreased
[2020-02-08 06:38] LABS: ALT (SGPT) 35 U/L (8-55); AST (SGOT) 75 U/L (5-34); Albumin 3.3 g/dL (3.5-5.0); Alkaline Phosphatase 242 U/L (40-110); Anion Gap 14 mmol/L (10-20); BUN (Urea Nitrogen) 46 mg/dL (8.9-20.6); Bilirubin, Total 4.6 mg/dL (0.2-1.2); Calc. Creatinine Clearance 143 mL/min (70-130); Calcium 8.5 mg/dL (7.8-10.44); Carbon Dioxide 27 mmol/L (22-29); Chloride 111 mmol/L (98-107); Estimated GFR-MDRD 85; Globulin 1.5 g/dL (2.4-3.5); Glucose 208 mg/dL (70-105); Protein, Total 4.8 g/dL (6.0-8.3); Sodium 149 mmol/L (136-145)
[2020-02-08 06:48] LABS: Potassium 2.9 mmol/L (3.5-5.1)
[2020-02-08 07:41] LABS: Actual Bicarbonate (HCO3a) 25.8 mEq/L (22-28); CO2 Tension 29.1 mmHg (35.0-45.0); Calcium, Ionized (arterial) 1.16 mmol/L (1.12-1.30); Carboxyhemoglobin (COHb) 0.3 gm% (0.0-3.0); Hemoglobin (Hb) 10.1 g/dL (14.0-18.0); O2 Tension (PaO2), arterial 85.1 mmHg (80.0-100.0); Potassium - ABG Lab 2.91 mmol/L (3.70-5.30)
[2020-02-08 07:51] LABS: ALV-art Gradient 163.725 mmHg (0-20); Puncture Site RRA; pH, Arterial 7.57 (7.35-7.45)
[2020-02-08] MEDS: Potassium Chloride 40 MEQ in Premix Bag 1 BAG IVPB SCH ×3 (08:19→16:11)
[2020-02-08] MEDS: Pantoprazole 40 MG VIAL IVP SCH ×2 (08:20→20:05)
[2020-02-08] MEDS: Nystatin Powder 15 GM BOT TOP SCH ×2 (08:20→20:05)
[2020-02-08] MEDS: Hydrocortisone Sod Succ/PF 100 mg/2 ml Vial IVP SCH ×2 (08:31→20:04)
[2020-02-08] MEDS ORDERED: DC Sedation Protocol FS ONE (09:03)
--- NOTE | 2020-02-08 09:23 | RAD ---
PORTABLE CHEST: Date: 02/08/2020 INDICATION: Pneumonia follow-up. CCU follow-up. COMPARISON: 02/07/2020. FINDINGS/IMPRESSION: ET tube, NG tube, and central line unchanged. Bilateral effusions and bibasilar atelectasis. Mild vas cular engorgement and prominent cardiac silhouette which is accentuated by this projection. Overall, no significant change from yesterday. POS: AGW
--- NOTE | 2020-02-08 09:25 | PRG ---
DATE OF SERVICE: 02/08/2020 SUBJECTIVE: Mr. Cesar is a 39-year-old white male, who was admitted for septic syndrome/acute respiratory failure, end-stage liver disease, and seen by the Renal Service for his acute kidney injury. The acute kidney injury was secondary to an acute tubular necrosis. He was managed supportively. Volume repletion was also given with this patient. Over the last several days, renal function has improved. His creatinine now is within normal. In addition, his serum sodium has gone up. For this reason, we will be giving him a quarter normal saline with potassium. He has been evaluated by Pulmonary Medicine. The plan is to have him extubated. No acute events noted last night. OBJECTIVE: VITAL SIGNS: Blood pressure 136/89, heart rate 83, respiratory rate 16, O2 saturation 96%. GENERAL: The patient is awake, can follow commands, intubated on ventilator support. SKIN: Adequate turgor. HEENT: Pinkish conjunctivae, anicteric sclerae. NECK: No neck mass. No carotid bruits. No JVD. CHEST: No deformities. LUNGS: Clear breath sounds. No wheezing. No crackles. HEART: Normal sinus rhythm. No murmurs, gallops, or rubs. ABDOMEN: Globular, soft, nontender. No masses. EXTREMITIES: No edema. MEDICATIONS: Medications of February 08, 2020, was reviewed. LABORATORY DATA: Laboratories of February 08, 2020, white count 7.8, hemoglobin 9.9. Sodium 149, potassium 2.9, chloride 111, carbon dioxide 27, BUN 46, creatinine 0.99, glucose 208, calcium 8.5, AST 75, ALT 35, albumin 3.3. ASSESSMENT AND PLAN: 1. Acute kidney injury secondary to ischemic acute tubular necrosis - much improved renal function. The patient is now diuresing. 2. No indication for any dialytic intervention. 3. Mild hypokalemia, p.r.n. potassium replacement. 4. Hypernatremia, start one fourth normal saline with potassium-to run at 100 mL/h. 5. Due to the improved renal function, we will be signing off. Please recall if needed. Job ID: [id number]
--- NOTE | 2020-02-08 10:20 | PRG ---
DATE OF SERVICE: SUBJECTIVE: This morning, he is more responsive. OBJECTIVE: VITAL SIGNS: Pulse 88, sats are 96% , blood pressure 130/89. I's and O's have been consistently positive. CHEST: Extensive rhonchi. CARDIAC: Normal S1 and S2. No gallops. ABDOMEN: Distended, soft. He is status post paracentesis. LABORATORY DATA: White count is 7000, platelet count is 78. PO2 is 85, pCO2 x-ray shows bibasilar atelectatic changes. Bilirubin is 4.6, slightly elevated. IMPRESSION: Respiratory failure, morbid obesity, end-stage liver disease, sepsis syndrome. He is going to be weaned and extubated today. Schedule neb treatments and supportive care. Discontinue all pain medication. PT. One-half hour of critical care time. Job ID: [id number]
--- NOTE | 2020-02-08 15:51 | PRG ---
DATE OF SERVICE: 02/08/2020 SUBJECTIVE: The patient was seen earlier this morning. He was just extubated. He remained somewhat lethargic, but opens eyes. No GI issue noted overnight. PHYSICAL EXAMINATION: VITAL SIGNS: Temperature is 98.3, blood pressure 133/110, pulse of 85. GENERAL: He is somewhat lethargic, but arousable, just extubated. HEENT: Showed mildly icteric sclerae. NECK: Supple. CV: Shows normal S1, S2. Regular rate and rhythm. CHEST: Shows poor excursion. ABDOMEN: Protuberant and somewhat distended, but no tympany. He has active bowel sounds. EXTREMITIES: Shows 2+ edema. LABORATORY DATA: Sodium 149, potassium 2.9, chloride 111, CO2 of 27, creatinine 0.99, BUN of 46, bilirubin 4.6, AST 75, ALT 35, alkaline phosphatase 242. His INR is 1.7, PT of 20.4. WBCs 3.9, hemoglobin 9.2, and platelet count of 72. ASSESSMENT: 1. Septic syndrome with multiorgan involvement. Status post extubation and off pressor. 2. Liver cirrhosis from alcohol with evidence of decompensation, likely from Escherichia coli sepsis. The patient had 6 L paracentesis yesterday. 3. Acute renal failure from acute tubular necrosis, resolving with creatinine trending toward normal. 4. Ulcerative colitis, clinically quiescent. Previously on azathioprine and Humira. RECOMMENDATIONS: 1. Overall stable from GI standpoint. 2. Would wait for 1 or 2 days for renal function to fully recover and consider start on diuretics to manage ascites. 3. Continue to monitor his LFT and INR for sign of further decompensation. 4. We will follow. Job ID: [id number]
--- NOTE | 2020-02-08 16:03 | PDOC.PALPN ---
Palliative Progress Note - Subjective Extubated, weak, no specific complaints. - Objective Vital Signs: Vital Signs - Most Recent Temp Pulse Resp BP Pulse Ox 98.3 F 85 21 H 150/108 H 100 02/08/20 11:00 02/08/20 14:27 02/08/20 14:27 02/08/20 10:21 02/08/20 14:27 - Physical Exam Constitutional: ill appearing HEENT: moist MMs Respiratory: unlabored breathing, diminished lung sound Cardiovascular: RRR Gastrointestinal: soft Deviation from normal: obese Genitourinary: calderon catheter Musculoskeletal: no cyanosis, no clubbing, edema present Neurology: moves all 4 limbs, no focal deficits Skin: cap refill <2 seconds, no rash - Assessment (1) Acute respiratory failure with hypoxia Code(s): J96.01 - ACUTE RESPIRATORY FAILURE WITH HYPOXIA Current Visit: Yes Status: Acute (2) Hepatic encephalopathy Code(s): K72.90 - HEPATIC FAILURE, UNSPECIFIED WITHOUT COMA Current Visit: Yes Status: Acute (3) Sepsis Code(s): A41.9 - SEPSIS, UNSPECIFIED ORGANISM Current Visit: Yes Status: Acute Qualifiers: Sepsis type: Escherichia coli Sepsis acute organ dysfunction status: with acute organ dysfunction Severe sepsis acute organ dysfunction type: acute liver failure Severe sepsis shock status: with septic shock (4) Cirrhosis Code(s): K74.60 - UNSPECIFIED CIRRHOSIS OF LIVER Current Visit: Yes Status: Chronic Qualifiers: Hepatic cirrhosis type: alcoholic cirrhosis Ascites presence: with ascites Qualified Code(s): K70.31 - Alcoholic cirrhosis of liver with ascites (5) Coagulopathy Current Visit: Yes Status: Chronic (6) GI bleed Code(s): K92.2 - GASTROINTESTINAL HEMORRHAGE, UNSPECIFIED Current Visit: Yes Status: Acute Qualifiers: GI bleed type/associated pathology: unspecified gastrointestinal hemorrhage type Qualified Code(s): K92.2 - Gastrointestinal hemorrhage, unspecified (7) Palliative care encounter Code(s): Z51.5 - ENCOUNTER FOR PALLIATIVE CARE Current Visit: No Status: Acute - Plan Plan: Met with family, MELD improving currently 19. Discussed that now that patient is extubated it is hopeful that he can participate in Goal of Care. Family is asking about transfer to Rehab for physical therapy this time instead of home. Reminded them that Mr Cesar elected to transition to home with home health PT and had refused inpatient rehab for physical therapy. Will also suggest to patient to transition to inpatient rehab for alcohol after physical strength is regained. Palliative Care will revisit Goal of Care with Mr Cesar now that he is e xtubated to determine what is important to him and his wishes. Please also see Palliative Care notes in note section. [60] minutes spent on this encounter with >50% of the time in counseling and educational coordinator rdination of care. - ROS Constitutional: alert, weakness ENT: dry mouth Gastrointestinal: other (Denies nausea) Genitourinary: other (Negative fro hematuria)
[2020-02-08] MEDS: cefTRIAXone\\ROCEPHIN 2 GM in Sodium Chloride 0.9% 100 ML IVPB SCH (16:11)
--- NOTE | 2020-02-08 16:14 | PDOC.HOSPP ---
- Subjective Encounter Date: 02/08/20 Subjective: Extubated this morning. He was able to speak afterwards, but barely. His voice is weak. Says he is doing ok. - Objective Vital Signs & Weight: Vital Signs (12 hours) Temp Pulse Pulse Pulse Resp BP BP 02/08/20 16:00 98.2 F 02/08/20 14:27 85 21 H 02/08/20 11:00 98.3 F 02/08/20 10:21 93 84 150/108 H 144/103 H 02/08/20 09:14 02/08/20 08:09 88 02/08/20 08:00 17 02/08/20 07:50 02/08/20 07:00 99.5 F 02/08/20 06:00 17 Pulse Ox Pulse Ox Pulse Ox 02/08/20 16:00 02/08/20 14:27 100 02/08/20 11:00 02/08/20 10:21 99 99 02/08/20 09:14 98 02/08/20 08:09 02/08/20 08:00 02/08/20 07:50 97 02/08/20 07:00 02/08/20 06:00 Weight Admit Weight 221 lb Weight 220 lb 14.451 oz Most Recent Monitor Data Heart Rate from ECG 97 NIBP 147/99 NIBP BP-Mean 115 Respiration from ECG 31 SpO2 99 I&O: 02/07/20 02/08/20 02/09/20 06:59 06:59 06:59 Intake Total 2502 1428 Output Total 3721 1836 738 Balance 379 -8721 -735 Result Diagrams: 02/08/20 05:38 02/08/20 05:38 Additional Labs: Accuchecks 02/08/20 02/07/20 04:21 21:58 POC Glucose 167 H 188 H Hospitalist ROS - Medication Medications: Active Medications Generic Name Dose Route Start Last Admin Trade Name Freq PRN Reason Stop Dose Admin Albuterol/Ipratropium 3 ml 02/08/20 13:00 02/08/20 14:27 Ipratropium/Albuterol Sulfate 3 Ml Neb NEB 3 ml [id number] ABRAM Administration Hydrocortisone Sodium Succinate 50 mg 02/04/20 09:00 02/08/20 08:31 Hydrocortisone Sod Succ/Pf 100 Mg/2 Ml Vial IVP 50 mg BID ABRAM Administration Norepinephrine Bitartrate 250 mls @ 0 mls/hr 01/31/20 23:37 02/04/20 12:02 Levophed IVPB 250 mls PRN PRN Administration To maintain MAP > 65 Protocol Titrate Vasopressin 20 unit/ 51 mls @ 0 mls/hr 02/01/20 09:30 02/02/20 16:43 Miscellaneous Medication 1 IV 51 mls each/ Sodium Chloride INF ABRAM Administration Protocol As Directed Ceftriaxone Sodium 2 gm/ 100 mls @ 200 mls/hr 02/03/20 14:00 02/07/20 13:50 Sodium Chloride IVPB 100 mls Q24HR ABRAM Administration Potassium Chloride 40 meq/ 1,020 mls @ 100 mls/hr 02/08/20 07:30 02/08/20 08:19 Dextrose/Sodium Chloride IV 1,020 mls .[id number] ABRAM Administration Potassium Chloride 40 meq/ 100 mls @ 25 mls/hr 02/08/20 08:00 02/08/20 12:49 Device IVPB 02/08/20 19:59 100 mls Q4H ABRAM Administration Insulin Human Lispro 0 units 01/31/20 23:37 02/08/20 09:38 Humalog 300 Units/3 Ml Vial SC 2 unit .MILD SLIDING SCALE PRN Administration Mild Correctional Scale Metoclopramide HCl 10 mg 02/03/20 08:45 02/08/20 08:19 Metoclopramide Hcl 10 Mg/2 Ml Vial IVP 10 mg Q6H ABRAM Administration Nystatin 0 gm 02/02/20 09:00 02/08/20 08:20 Nystatin Powder 15 Gm Bot TOP 1 applic BID ABRAM Administration Ondansetron HCl 4 mg 01/31/20 23:35 02/07/20 21:48 Ondansetron Pf 4 Mg/2 Ml Vial IVP 4 mg Q6H PRN Administration Nausea/Vomiting use 1st Pantoprazole Sodium 40 mg 02/07/20 21:00 02/08/20 08:20 Pantoprazole 40 Mg Vial IVP 40 mg Q12HR ABRAM Administration - Exam General Appearance: NAD, awake alert Eye: PERRL, anicteric sclera Heart: RRR, no murmur, no gallops, no rubs, normal peripheral pulses Respiratory: CTAB, no wheezes, no rales, no ronchi, normal chest expansion, no tachypnea, normal percussion Gastrointestinal: soft, non-tender, non-distended, normal bowel sounds, no palpable masses, no hepatomegaly, no splenomegaly, no bruit Extremities: no cyanosis, no clubbing, no edema Skin: normal turgor Neurological: cranial nerve grossly intact, normal sensation to touch, no weakness, no focal deficits, no new deficit Musculoskeletal: generalized weakness (Severe) Psychiatric: somnolent Hosp A/P (1) Acute respiratory failure with hypoxia Code(s): J96.01 - ACUTE RESPIRATORY FAILURE WITH HYPOXIA Status: Acute (2) DAE (acute kidney injury) Code(s): N17.9 - ACUTE KIDNEY FAILURE, UNSPECIFIED Status: Acute (3) Bacteremia Code(s): R78.81 - BACTEREMIA Status: Acute (4) Hepatic encephalopathy Code(s): K72.90 - HEPATIC FAILURE, UNSPECIFIED WITHOUT COMA Status: Acute (5) Sepsis Code(s): A41.9 - SEPSIS, UNSPECIFIED ORGANISM Status: Acute Qualifiers: Sepsis type: Escherichia coli Sepsis acute organ dysfunction status: with acute organ dysfunction Severe sepsis acute organ dysfunction type: acute liver failure Severe sepsis shock status: with septic shock (6) Cirrhosis Code(s): K74.60 - UNSPECIFIED CIRRHOSIS OF LIVER Status: Chronic Qualifiers: Hepatic cirrhosis type: alcoholic cirrhosis Ascites presence: with ascites Qualified Code(s): K70.31 - Alcoholic cirrhosis of liver with ascites (7) Coagulopathy Status: Chronic (8) Acute kidney injury Code(s): N17.9 - ACUTE KIDNEY FAILURE, UNSPECIFIED Status: Acute (9) Anemia due to acute blood loss Code(s): D62 - ACUTE POSTHEMORRHAGIC ANEMIA Status: Acute (10) Chronic liver disease Code(s): K76.9 - LIVER DISEASE, UNSPECIFIED Status: Acute (11) E coli bacteremia Code(s): R78.81 - BACTEREMIA; B96.20 - UNSP ESCHERICHIA COLI THE CAUSE OF DISEASES CLASSD ELSWHR Status: Acute (12) Chronic alcohol use Code(s): Z72.89 - OTHER PROBLEMS RELATED TO LIFESTYLE Status: Chronic (13) Ulcerative colitis Code(s): K51.90 - ULCERATIVE COLITIS, UNSPECIFIED, WITHOUT COMPLICATIONS Status: Chronic Qualifiers: Ulcerative colitis location: unspecified ulcerative colitis location Digestive disease complication type: without complication Qualified Code(s): K51.90 - Ulcerative colitis, unspecified, without complications - Plan Acute hypoxic respiratory failure: Initially intubated. Extubated on 02/08/20. Acute renal failure: Nephrology following. Likely hepatorenal syndrome. Received albumin and fluids. Renal function has improved and UOP improved. Chronic alcoholic liver disease with ascites: GI following. Secondary to alcoholism. Does not appear to have significant cirrhotic changes to the liver at this point on imaging. He does have coagulopathy. He has had large volume ascites throughout the hospitalization. Initially had a very high MELD score but it seems to be improving as his renal function improves. May need re-initiation of diuretics when renal function is stable to address the recurrent ascites. E. coli bacteremia: Could be resultant from the ascites or from ulcerative colitis. Seems to be improving. Continue Rocephin. Hx of UC: No current evidence of flare. Encephalopathy: At this point, he appears to be normally cognizant. Sepsis: Secondary to E. coli bacteremia. Resolved. Continue Rocephin.
[2020-02-08 22:35] LABS: Potassium 4.7 mmol/L (3.5-5.1)
[2020-02-09] MEDS: Metoclopramide HCl 10 MG/2 ML VIAL IVP SCH ×4 (03:39→20:32)
[2020-02-09] MEDS: HumaLOG 300 UNITS/3 ML VIAL SC PRN ×3 (03:47→20:32)
[2020-02-09 04:54] LABS: INR-International Normal Ratio 1.5; PTT 31.7 sec (22.9-36.1); Prothrombin Time 18.7 sec (12.0-14.7)
[2020-02-09 05:10] LABS: ALT (SGPT) 43 U/L (8-55); AST (SGOT) 62 U/L (5-34); Albumin 3.4 g/dL (3.5-5.0); Alkaline Phosphatase 227 U/L (40-110); Anion Gap 15 mmol/L (10-20); BUN (Urea Nitrogen) 41 mg/dL (8.9-20.6); Bilirubin, Total 3.6 mg/dL (0.2-1.2); Calc. Creatinine Clearance 189 mL/min (70-130); Calcium 8.8 mg/dL (7.8-10.44); Carbon Dioxide 29 mmol/L (22-29); Chloride 113 mmol/L (98-107); Estimated GFR-MDRD Greater than 90; Globulin 1.8 g/dL (2.4-3.5); Glucose 202 mg/dL (70-105); Potassium 4.5 mmol/L (3.5-5.1); Protein, Total 5.2 g/dL (6.0-8.3); Sodium 152 mmol/L (136-145)
[2020-02-09 05:36] LABS: Anisocytosis SLIGHT = 6-15 cells (100X) (0-5/hpf); Band 9 % (5-11); Hemoglobin 9.6 g/dL (14.0-18.0); Lymphocytes 4 % (21-51); MDiff Complete? YES; Mean Corpuscular HGB CONC 30.9 g/dL (32.0-36.0); Mean Corpuscular Hemoglobin 30.6 pg (27.0-31.0); Mean Corpuscular Volume 99.2 fL (78.0-98.0); Mean Platelet Volume 12.1 fL (7.4-10.4); Monocytes 4 % (0-10); Myelocyte 1 % (0-0); Neutrophil 81 % (42-75); Platelet Count 97 thou/uL (130-400); Platelet Morphology Comment Appears Decreased; RBC Distribution Width 17.6 % (11.5-14.5); Reactive Lymphocytes 1 % (0-10); Red Blood Cell (RBC) Count 3.15 mill/uL (4.70-6.10); White Blood Cell (WBC) Count 8.9 thou/uL (4.8-10.8)
--- NOTE | 2020-02-09 08:11 | RAD ---
Portable frontal chest radiograph: 02/09/2020 COMPARISON: 02/08/2020 HISTORY: Pneumonia FINDINGS: Shallow inspiration and body habitus limits detailed assessment. Stable left vascular coral ter. Interval removal of endotracheal tube and nasogastric tube. Nonspecific bilateral perihilar airspace disease noted. Dense opacity in both lung bases suggest bibasilar consolidation/collapse and bilateral pleural effusions. IMPRESSION: Interval removal of nasogastric tube and endotracheal tube. Persistent nonspecific perihi lar airspace disease with dense bibasilar pleural and parenchymal opacity. Findings may be related to pulmonary edema and/or multifocal infectious pneumonitis.
[2020-02-09] MEDS: Hydrocortisone Sod Succ/PF 100 mg/2 ml Vial IVP SCH ×2 (08:15→20:31)
[2020-02-09] MEDS: Pantoprazole 40 MG VIAL IVP SCH ×2 (08:18→20:32)
[2020-02-09] MEDS: Nystatin Powder 15 GM BOT TOP SCH ×2 (08:21→20:31)
--- NOTE | 2020-02-09 08:22 | PRG ---
DATE OF SERVICE: SUBJECTIVE: Silvio Cesar remains in the ICU. Still remains somewhat encephalopathic. Status post extubation, he failed a swallow test. OBJECTIVE: VITAL SIGNS: His sats are 100% on 2 L, blood pressure 140/106, respiratory rate 18, pulse 80. His I's and O's have been consistently negative. CHEST: Decreased breath sounds. No wheezing. CARDIAC: Normal S1, S2. No gallops. ABDOMEN: No masses. LABORATORY DATA: Sodium is 152. White count 8000, platelet count is low . ASSESSMENT: 1. End-stage liver disease, cirrhosis, status post paracentesis multiple times. 2. Status post extubation. 3. Mild azotemia. X-ray shows worsening subpulmonic effusion. He was started on hydration per Nephrology. His prognosis is guarded. We will follow. Job ID: [id number]
--- NOTE | 2020-02-09 09:40 | PRG ---
DATE OF SERVICE: SUBJECTIVE: Mr. Cesar reports no shortness of breath. He is alert. He is not having any abdominal pain. He did fail his nursing bedside swallow evaluation. He is hypernatremic and feeling thirsty. OBJECTIVE: VITAL SIGNS: Temperature 97.8, pulse 87, blood pressure 148/107, 100% oxygen saturation on 4 L nasal cannula. GENERAL: Chronically ill, sitting up in bed comfortably, in no respiratory distress. MENTAL: He is alert and oriented to person and place. HEART: Regular rate and rhythm. LUNGS: Bibasilar crackles. ABDOMEN: Mild distention. Bowel sounds present. Soft and nontender to palpation. No rebound tenderness. EXTREMITIES: 1+ bilateral lower extremity edema. LABORATORY STUDIES: INR is down to 1.5. WBC 8.9, hemoglobin stable at 9.6, platelets 97. Sodium up to 152, potassium 4.5, BUN 41, creatinine 0.75, glucose 193, total bilirubin 3.6, alkaline phosphatase 227, AST 62, ALT 43. Ammonia only 22. Albumin 3.4. IMAGING STUDIES: Chest x-ray from today shows multifocal bibasilar pleural and parenchymal opacities and dense opacity in both lung bases. ASSESSMENT AND PLAN: 1. Sepsis, with Escherichia coli, improved. 2. Cirrhosis, decompensated. 3. Ascites. 4. Acute renal failure, slowly improving. We are continuing to hold diuretics for now. 5. Hypernatremia. The patient has a free water deficit. I understand that D5 drip has been ordered. At some point, when renal function has stabilized, we will attempt to restart diuretics. 6. Oropharyngeal dysphagia. The patient failed bedside nurse swallowing evaluation. Advised formal speech therapy evaluation at this time. 7. Physical deconditioning. The patient has been in the ICU for over a week now. Agree with recommendation to transition to inpatient rehabilitation on hospital discharge. Overall prognosis remains guarded given the severity of his decompensation. Job ID: [id number]
--- NOTE | 2020-02-09 11:38 | PDOC.PALPN ---
Palliative Progress Note - Subjective Alert, but confused, status post extubation. Believes his mother , assured him that she is alive and well. Oriented to self, however could not recall year, place. Weakness, assistance with ADL. Spoke with speech therapy, failed swallow. Suggested Ice Chips with villarreal water protocol. - Objective Vital Signs: Vital Signs - Most Recent Temp Pulse Resp BP Pulse Ox 97.8 F 87 30 H 150/108 H 100 02/09/20 08:00 02/09/20 08:03 02/09/20 08:03 02/08/20 10:21 02/09/20 08:03 - Physical Exam Constitutional: confusion, ill appearing HEENT: moist MMs, scleral icterus Respiratory: no wheezing, diminished lung sound Cardiovascular: RRR Gastrointestinal: soft, non-tender Deviation from normal: obese Genitourinary: calderon catheter Musculoskeletal: pulses present Neurology: moves all 4 limbs, no focal deficits Skin: no lesions Deviation from normal: icteric Deviation from normal: alert, oriented to self - Assessment (1) Acute respiratory failure with hypoxia Code(s): J96.01 - ACUTE RESPIRATORY FAILURE WITH HYPOXIA Current Visit: Yes Status: Acute (2) Hepatic encephalopathy Code(s): K72.90 - HEPATIC FAILURE, UNSPECIFIED WITHOUT COMA Current Visit: Yes Status: Acute (3) Sepsis Code(s): A41.9 - SEPSIS, UNSPECIFIED ORGANISM Current Visit: Yes Status: Acute Qualifiers: Sepsis type: Escherichia coli Sepsis acute organ dysfunction status: with acute organ dysfunction Severe sepsis acute organ dysfunction type: acute liver failure Severe sepsis shock status: with septic shock (4) Cirrhosis Code(s): K74.60 - UNSPECIFIED CIRRHOSIS OF LIVER Current Visit: Yes Status: Chronic Qualifiers: Hepatic cirrhosis type: alcoholic cirrhosis Ascites presence: with ascites Qualified Code(s): K70.31 - Alcoholic cirrhosis of liver with ascites (5) Coagulopathy Current Visit: Yes Status: Chronic (6) GI bleed Code(s): K92.2 - GASTROINTESTINAL HEMORRHAGE, UNSPECIFIED Current Visit: Yes Status: Acute Qualifiers: GI bleed type/associated pathology: unspecified gastrointestinal hemorrhage type Qualified Code(s): K92.2 - Gastrointestinal hemorrhage, unspecified (7) Palliative care encounter Code(s): Z51.5 - ENCOUNTER FOR PALLIATIVE CARE Current Visit: No Status: Acute - Plan Plan: *Confused, attempted to reassure patient and orient to day and recent stay in hospital. Family hopeful for transition to rehab for increase in strength. *Mother remains hopeful for continued recovery, with eventual consideration for liver transplant candidate. Continue to reinforce abstinence from alcohol at discharge will be pivotal *Patient not decisional at time of todays assessment. As confusion subsides Palliative Care will revisit goal of care with patient and family. [25] minutes spent on this encounter with >50% of the time in counseling and coordination of care. - ROS Constitutional: weakness Eyes: other (Negative for itching) ENT: dry mouth Respiratory: other (Denies shortness of breath or cough) Cardiology: other (denies chest pain) Gastrointestinal: other (denies abdominal pain or nausea)
[2020-02-09] MEDS: cefTRIAXone\\ROCEPHIN 2 GM in Sodium Chloride 0.9% 100 ML IVPB SCH (13:26)
--- NOTE | 2020-02-09 16:10 | PRG ---
DATE OF SERVICE: 02/09/2020 SUBJECTIVE: Mr. Cesar is extubated. He is alert. He denies any pain. He appears comfortable at rest. He is unable to drink because he failed the swallow evaluation. He still has an indwelling Hernandez catheter. OBJECTIVE: VITAL SIGNS: T-max 98, blood pressure 140/100, heart rate 96, respiratory rate 30, saturating at 95% on 4 L nasal cannula. GENERAL: The patient does appear in distress. LUNGS: With faint basilar crackles. HEART: S1 and S2, regular rate. ABDOMEN: Somewhat distended, but not tender. Soft. No ascites noted. EXTREMITIES: Mild edema in lower extremities. LABORATORY DATA: White cell count 8.9, hemoglobin 9.6, platelets 97, 81% neutrophils, 9% bands. Creatinine 0.75, which is quite a bit of an improvement since admission. AST is stable at 62, ALT is normal, alkaline phosphatase is up to 227. Repeat ascitic tap showed 525 wbc's, 48% neutrophils, 26% lymphocytes. Microbiology; E coli in blood culture, resistant to quinolones, but susceptible to cephalosporins and Bactrim. Urine culture was not obtained. He is currently receiving ceftriaxone. ASSESSMENT AND DISCUSSION: Ulcerative colitis, on TNF inhibitor, prednisone intermittently as well as Imuran. Recent sepsis episode with negative cultures with improvement, persistence of alcoholic beverage intake and now recurrence of sepsis, at this time with Escherichia coli in one set of blood cultures with some quite broad susceptibility profile. He did have abnormal urinalysis, but no cultures from urine are submitted. So, either this is associated with spontaneous bacterial peritonitis, which appears to be less likely or from a urinary tract infection associated with the recent catheterization. Duration of therapy will be just a few more days. Job ID: [id number]
--- NOTE | 2020-02-09 18:40 | PDOC.HOSPP ---
- Subjective Encounter Date: 02/09/20 Encounter Time: 18:40 Subjective: f/u for sepsis with E. coli spp isolated, s/p resp failure and mech ventilation extubated 02/08/20. Remains confused and pulling at O2 mask and lines/tubes and now placed in wrist restraints. - Objective Vital Signs & Weight: Vital Signs (12 hours) Temp Pulse Pulse Pulse Resp BP BP 02/09/20 16:00 98.3 F 02/09/20 14:10 112 H 96 143/109 H 147/104 H 02/09/20 13:37 86 28 H 02/09/20 12:00 98.0 F 02/09/20 08:03 87 30 H 02/09/20 08:00 97.8 F Pulse Ox Pulse Ox Pulse Ox 02/09/20 16:00 02/09/20 14:10 94 L 100 02/09/20 13:37 98 02/09/20 12:00 02/09/20 08:03 100 02/09/20 08:00 93 L Weight Admit Weight 221 lb Weight 218 lb 7.649 oz Most Recent Monitor Data Heart Rate from ECG 90 NIBP 145/101 NIBP BP-Mean 115 Respiration from ECG 29 SpO2 93 I&O: 02/08/20 02/09/20 02/10/20 06:59 06:59 06:59 Intake Total 1428 2045 1601 Output Total 7740 1480 520 Balance -6312 565 1081 Result Diagrams: 02/09/20 03:45 02/09/20 03:45 Additional Labs: Accuchecks 02/09/20 02/09/20 02/08/20 10:53 03:51 21:38 POC Glucose 167 H 193 H 190 H 02/08/20 16:29 POC Glucose 180 H Microbiology 02/07/20 13:50 Stool C. difficile GDH Antigen & Toxins - Final 02/04/20 15:10 Ascites Fluid Body Fluid Culture - Final 01/31/20 21:57 Venous blood - Right Hand Blood Culture - Final Escherichia coli 01/31/20 21:57 Central Line - Right Common Femoral Vein Blood Culture - Final Coagulase Neg Staphylococcus Laboratory Tests 01/31/20 01/31/20 02/01/20 21:58 22:14 04:22 Hgb Plt Count PT INR Sodium Total Bilirubin Ammonia 70 Free T4 1.56 H TSH 3rd Generation 16.4652 H Cortisol 02/01/20 02/06/20 02/07/20 09:02 04:20 06:18 Hgb 8.8 L Plt Count 67 L PT INR 1.9 Sodium Total Bilirubin Ammonia Free T4 TSH 3rd Generation Cortisol 48.20 02/07/20 02/07/20 02/07/20 06:18 06:18 15:39 Hgb 9.2 L Plt Count 72 L PT INR Sodium 144 Total Bilirubin 4.0 H Ammonia Free T4 TSH 3rd Generation Cortisol 02/08/20 02/08/20 02/08/20 05:38 05:38 05:38 Hgb 9.9 L Plt Count 78 L PT INR 1.7 Sodium 149 H Total Bilirubin 4.6 H Ammonia Free T4 TSH 3rd Generation Cortisol 02/08/20 02/09/20 02/09/20 09:29 03:45 03:45 Hgb Plt Count PT 18.7 H INR 1.5 Sodium Total Bilirubin 3.6 H Ammonia 22 Free T4 TSH 3rd Generation Cortisol Radiology Reviewed by me: Yes (PCXR - multifocal patchy basilar infiltrates) EKG Reviewed by me: Yes (Tele - SR) Hospitalist ROS - Medication Medications: Active Medications Generic Name Dose Route Start Last Admin Trade Name Freq PRN Reason Stop Dose Admin Albuterol/Ipratropium 3 ml 02/08/20 13:00 02/09/20 13:37 Ipratropium/Albuterol Sulfate 3 Ml Neb NEB 3 ml [id number] ABRAM Administration Hydrocortisone Sodium Succinate 50 mg 02/04/20 09:00 02/09/20 08:15 Hydrocortisone Sod Succ/Pf 100 Mg/2 Ml Vial IVP 50 mg BID ABRAM Administration Norepinephrine Bitartrate 250 mls @ 0 mls/hr 01/31/20 23:37 02/04/20 12:02 Levophed IVPB 250 mls PRN PRN Administration To maintain MAP > 65 Protocol Titrate Vasopressin 20 unit/ 51 mls @ 0 mls/hr 02/01/20 09:30 02/02/20 16:43 Miscellaneous Medication 1 IV 51 mls each/ Sodium Chloride INF ABRAM Administration Protocol As Directed Ceftriaxone Sodium 2 gm/ 100 mls @ 200 mls/hr 02/03/20 14:00 02/09/20 13:26 Sodium Chloride IVPB 100 mls Q24HR ABRAM Administration Potassium Chloride 40 meq/ 1,020 mls @ 150 mls/hr 02/09/20 06:55 02/09/20 16:53 Dextrose/Sodium Chloride IV Not Given .Q6H48M ABRAM Insulin Human Lispro 0 units 01/31/20 23:37 02/09/20 16:51 Humalog 300 Units/3 Ml Vial SC 3 unit .MILD SLIDING SCALE PRN Administration Mild Correctional Scale Metoclopramide HCl 10 mg 02/03/20 08:45 02/09/20 16:53 Metoclopramide Hcl 10 Mg/2 Ml Vial IVP Not Given Q6H ABRAM Nystatin 0 gm 02/02/20 09:00 02/09/20 08:21 Nystatin Powder 15 Gm Bot TOP 1 applic BID ABRAM Administration Ondansetron HCl 4 mg 01/31/20 23:35 02/07/20 21:48 Ondansetron Pf 4 Mg/2 Ml Vial IVP 4 mg Q6H PRN Administration Nausea/Vomiting use 1st Pantoprazole Sodium 40 mg 02/07/20 21:00 02/09/20 08:18 Pantoprazole 40 Mg Vial IVP 40 mg Q12HR ABRAM Administration - Exam General Appearance: ill appearing General - other findings: opens eyes briefly, tracks briefly Eye: PERRL, scleral icterus ENT: normocephalic atraumatic, no oropharyngeal lesions, dry oral mucosa Neck: supple, symmetric, no JVD, no thyromegaly, no lymphadenopathy Heart: RRR, no gallops, no rubs, normal peripheral pulses Heart - other findings: S1, S2 Respiratory - other findings: coarse sounds bilat, diminished in bases Gastrointestinal: normal bowel sounds, no palpable masses, tender to palpation Gastrointestinal - other findings: + distended, fluid wave, obese Extremities: no cyanosis, no clubbing, 1+ LE edema Skin: normal turgor Neurological: cranial nerve grossly intact Musculoskeletal: generalized weakness Psychiatric: oriented to person, somnolent, lethargic Hosp A/P (1) Acute respiratory failure with hypoxia Code(s): J96.01 - ACUTE RESPIRATORY FAILURE WITH HYPOXIA Status: Acute Plan: s/p mech ventilation, O2 supplementation with NC (2) E coli bacteremia Code(s): R78.81 - BACTEREMIA; B96.20 - UNSP ESCHERICHIA COLI THE CAUSE OF DISEASES CLASSD ELSWHR Status: Acute Plan: Continue Rocephin IV (3) Hepatic encephalopathy Code(s): K72.90 - HEPATIC FAILURE, UNSPECIFIED WITHOUT COMA Status: Acute (4) Sepsis Code(s): A41.9 - SEPSIS, UNSPECIFIED ORGANISM Status: Acute Qualifiers: Sepsis type: Escherichia coli Sepsis acute organ dysfunction status: with acute organ dysfunction Severe sepsis acute organ dysfunction type: acute li nabila failure Severe sepsis shock status: with septic shock Plan: Continue Rocephin, IVF's, monitor for recurrence (5) Cirrhosis Code(s): K74.60 - UNSPECIFIED CIRRHOSIS OF LIVER Status: Chronic Qualifiers: Hepatic cirrhosis type: alcoholic cirrhosis Ascites presence: with ascites Qualified Code(s): K70.31 - Alcoholic cirrhosis of liver with ascites Plan: Decompensated cirrhosis s/ 6L ascites removed (6) Acute kidney failure Status: Acute Qualifiers: Acute renal failure type: with acute tubular necrosis Qualified Code(s): N17.0 - Acute kidney failure with tubular necrosis Plan: Resolving, continue IVF's, avoid nephrotoxic meds and limit contrast exposure (7) Hypernatremia Code(s): E87.0 - HYPEROSMOLALITY AND HYPERNATREMIA Status: Acute Plan: Likely due to dehydration, increase free-H2O intake, seria Na+ monitoring - Plan continue antibiotics, PT/OT, social work professor, speech therapy, respiratory therapy, DVT proph w/SCDs Continue supportive mgmt Poor overall prognosis Code Status: DNAR Continue D5 1/4 NS with KCL Likely transfer to medical floor in am AM lab: CMP, CBC
[2020-02-10] MEDS: Metoclopramide HCl 10 MG/2 ML VIAL IVP SCH ×4 (03:28→21:36)
[2020-02-10] MEDS: HumaLOG 300 UNITS/3 ML VIAL SC PRN (04:43)
[2020-02-10 05:11] LABS: INR-International Normal Ratio 1.6; PTT 31.1 sec (22.9-36.1)
[2020-02-10 05:24] LABS: ALT (SGPT) 52 U/L (8-55); AST (SGOT) 67 U/L (5-34); Albumin 3.4 g/dL (3.5-5.0); Alkaline Phosphatase 230 U/L (40-110); Anion Gap 10 mmol/L (10-20); BUN (Urea Nitrogen) 29 mg/dL (8.9-20.6); Bilirubin, Total 2.8 mg/dL (0.2-1.2); Calc. Creatinine Clearance 201 mL/min (70-130); Calcium 8.3 mg/dL (7.8-10.44); Carbon Dioxide 29 mmol/L (22-29); Chloride 113 mmol/L (98-107); Estimated GFR-MDRD Greater than 90; Globulin 1.9 g/dL (2.4-3.5); Glucose 223 mg/dL (70-105); Potassium 5.2 mmol/L (3.5-5.1); Protein, Total 5.3 g/dL (6.0-8.3); Sodium 147 mmol/L (136-145)
[2020-02-10 05:32] LABS: Band 5 % (5-11); Lymphocytes 7 % (21-51); MDiff Complete? YES; Mean Corpuscular HGB CONC 31.5 g/dL (32.0-36.0); Mean Corpuscular Hemoglobin 31.3 pg (27.0-31.0); Mean Corpuscular Volume 99.1 fL (78.0-98.0); Metamyelocyte 1 % (0-0); Monocytes 1 % (0-10); Neutrophil 86 % (42-75); Platelet Count 115 thou/uL (130-400); Platelet Morphology Comment Appears Decreased; RBC Distribution Width 17.5 % (11.5-14.5); Target Cells SLIGHT = 2-5 cells (100X) (0-1/hpf); White Blood Cell (WBC) Count 12.8 thou/uL (4.8-10.8)
--- NOTE | 2020-02-10 07:59 | RAD ---
Portable frontal chest radiograph: 02/10/2020 COMPARISON: 02/09/2020 HISTORY: Pneumonia FINDINGS: Shallow inspiration limits detailed assessment as this body habitus. Dense opacity in both lung bases suggests a combination of bibasilar consolidation/collapse and bilateral pleural effusions. Stable left vascular catheter. Perihilar interstitial and alveolar opacity again noted. IMPRESSION: Stable appearance of the chest. Findings suggest pulmonary edema and/or multifocal infect ious pneumonitis.
[2020-02-10] MEDS: Hydrocortisone Sod Succ/PF 100 mg/2 ml Vial IVP SCH ×2 (08:34→21:36)
[2020-02-10] MEDS: Sodium Chloride 0.9% (PF) 10 ML VIAL FS PRN (08:35)
[2020-02-10] MEDS: Pantoprazole 40 MG VIAL IVP SCH ×2 (08:35→21:36)
--- NOTE | 2020-02-10 09:09 | PRG ---
DATE OF SERVICE: 02/10/2020 SUBJECTIVE: Post extubation, he is doing well. He is still having some respiratory distress. He is wheezing. Speech is yet to see him regarding his swallow study. OBJECTIVE: VITAL SIGNS: Temperature 98, blood pressure 143/100, respiratory rate 18, pulse 80. CHEST: Bilateral wheezing. CARDIAC: Normal S1, S2. No gallops. DIAGNOSTIC DATA: X-ray shows bilateral pleural effusion. His albumin is low at 3.4. LABORATORY DATA: White count 12,000, slight left shift. IMPRESSION: Urosepsis, E coli, alcoholic liver disease, cirrhosis, respiratory failure, severe deconditioning. PLAN: He is on ceftriaxone. He is off all pressors. Still got a rectal tube, which probably needs to be discontinued. He can be transferred to the medical floor later today. He is on scheduled neb treatments. Pulmonary is going to follow while in the ICU. Job ID: [id number]
[2020-02-10] MEDS: Nystatin Powder 15 GM BOT TOP SCH ×2 (09:30→21:41)
[2020-02-10] MEDS: D5 1/4 NS 1,000 ML IV SCH (09:30)
[2020-02-10] MEDS: cefTRIAXone\\ROCEPHIN 2 GM in Sodium Chloride 0.9% 100 ML IVPB SCH (14:10)
[2020-02-10] MEDS: Labetalol HCl 100 MG/20 ML VIAL SLOW IVP PRN (14:11)
--- NOTE | 2020-02-10 17:43 | PDOC.HOSPP ---
- Subjective Encounter Date: 02/10/20 Encounter Time: 17:30 Subjective: f/u for E. coli sepsis/bacteremia on Rocephin. Restless overnight and slept a portion of the day. Rectal tube d/c'd. ELECTRONICS DEPARTMENT MANAGER did not clear for po intake today remaining NPO. - Objective Vital Signs & Weight: Vital Signs (12 hours) Temp Pulse Pulse Pulse Resp BP BP 02/10/20 16:00 98 F 02/10/20 14:11 110 H 162/119 H 02/10/20 13:10 100 22 H 02/10/20 12:00 98.5 F 02/10/20 10:15 97 95 155/115 H 02/10/20 08:00 98.4 F 02/10/20 07:58 02/10/20 07:48 97 22 H BP Pulse Ox Pulse Ox Pulse Ox 02/10/20 16:00 02/10/20 14:11 02/10/20 13:10 02/10/20 12:00 02/10/20 10:15 144/112 H 98 97 02/10/20 08:00 02/10/20 07:58 100 02/10/20 07:48 Weight Admit Weight 221 lb Weight 220 lb 10.923 oz Most Recent Monitor Data Heart Rate from ECG 79 NIBP 157/101 NIBP BP-Mean 119 Respiration from ECG 23 SpO2 99 I&O: 02/09/20 02/10/20 02/11/20 06:59 06:59 06:59 Intake Total 2045 3494 Output Total 1480 1295 675 Balance 565 2199 -675 Result Diagrams: 02/10/20 04:20 02/10/20 04:20 Additional Labs: Accuchecks 02/10/20 02/09/20 10:11 20:35 POC Glucose 159 H 173 H Microbiology 02/07/20 13:50 Stool C. difficile GDH Antigen & Toxins - Final 02/04/20 15:10 Ascites Fluid Body Fluid Culture - Final 01/31/20 21:57 Venous blood - Right Hand Blood Culture - Final Escherichia coli 01/31/20 21:57 Central Line - Right Common Femoral Vein Blood Culture - Final Coagulase Neg Staphylococcus Laboratory Tests 01/31/20 01/31/20 02/01/20 21:58 22:14 04:22 Hgb Plt Count PT INR Sodium Total Bilirubin Ammonia 70 Free T4 1.56 H TSH 3rd Generation 16.4652 H Cortisol 02/01/20 02/06/20 02/07/20 09:02 04:20 06:18 Hgb 8.8 L Plt Count 67 L PT INR 1.9 Sodium Total Bilirubin Ammonia Free T4 TSH 3rd Generation Cortisol 48.20 02/07/20 02/07/20 02/07/20 06:18 06:18 15:39 Hgb 9.2 L Plt Count 72 L PT INR Sodium 144 Total Bilirubin 4.0 H Ammonia Free T4 TSH 3rd Generation Cortisol 02/08/20 02/08/20 02/08/20 05:38 05:38 05:38 Hgb 9.9 L Plt Count 78 L PT INR 1.7 Sodium 149 H Total Bilirubin 4.6 H Ammonia Free T4 TSH 3rd Generation Cortisol 02/08/20 02/09/20 02/09/20 09:29 03:45 03:45 Hgb Plt Count PT 18.7 H INR 1.5 Sodium Total Bilirubin 3.6 H Ammonia 22 Free T4 TSH 3rd Generation Cortisol Radiology Reviewed by me: Yes (PCXR - multifocal infiltrates) EKG Reviewed by me: Yes (Tele - Sinus in s) Hospitalist ROS - Medication Medications: Active Medications Generic Name Dose Route Start Last Admin Trade Name Freq PRN Reason Stop Dose Admin Albuterol/Ipratropium 3 ml 02/08/20 13:00 02/10/20 13:10 Ipratropium/Albuterol Sulfate 3 Ml Neb NEB 3 ml [id number] ABRAM Administration Hydrocortisone Sodium Succinate 50 mg 02/04/20 09:00 02/10/20 08:34 Hydrocortisone Sod Succ/Pf 100 Mg/2 Ml Vial IVP 50 mg BID ABRAM Administration Norepinephrine Bitartrate 250 mls @ 0 mls/hr 01/31/20 23:37 02/04/20 12:02 Levophed IVPB 250 mls PRN PRN Administration To maintain MAP > 65 Protocol Titrate Vasopressin 20 unit/ 51 mls @ 0 mls/hr 02/01/20 09:30 02/02/20 16:43 Miscellaneous Medication 1 IV 51 mls each/ Sodium Chloride INF ABRAM Administration Protocol As Directed Ceftriaxone Sodium 2 gm/ 100 mls @ 200 mls/hr 02/03/20 14:00 02/10/20 14:10 Sodium Chloride IVPB 100 mls Q24HR ABRAM Administration Dextrose/Sodium Chloride 1,000 mls @ 50 mls/hr 02/10/20 08:45 02/10/20 09:30 D5 1/4 Ns IV 1,000 mls .Q20H ABRAM Administration Insulin Human Lispro 0 units 01/31/20 23:37 02/10/20 04:43 Humalog 300 Units/3 Ml Vial SC 2 unit .MILD SLIDING SCALE PRN Administration Mild Correctional Scale Labetalol HCl 20 mg 01/31/20 23:35 02/10/20 14:11 Labetalol Hcl 100 Mg/20 Ml Vial SLOW IVP 20 mg Q4H PRN Administration SBP > 160 use third Metoclopramide HCl 10 mg 02/03/20 08:45 02/10/20 15:11 Metoclopramide Hcl 10 Mg/2 Ml Vial IVP Not Given Q6H ABRAM Nystatin 0 gm 02/02/20 09:00 02/10/20 09:30 Nystatin Powder 15 Gm Bot TOP 1 applic BID ABRAM Administration Ondansetron HCl 4 mg 01/31/20 23:35 02/07/20 21:48 Ondansetron Pf 4 Mg/2 Ml Vial IVP 4 mg Q6H PRN Administration Nausea/Vomiting use 1st Pantoprazole Sodium 40 mg 02/07/20 21:00 02/10/20 08:35 Pantoprazole 40 Mg Vial IVP 40 mg Q12HR ABRAM Administration Sodium Chloride 10 ml 02/07/20 12:15 02/10/20 08:35 Sodium Chloride 0.9% (Pf) 10 Ml Vial FS 10 ml PRN PRN Administration RECONSTITUTION - Exam General Appearance: ill appearing General - other findings: somnolent Eye: PERRL, scleral icterus ENT: normocephalic atraumatic, no oropharyngeal lesions, dry oral mucosa Neck: supple, symmetric, no JVD, no thyromegaly, no lymphadenopathy Heart: RRR, no gallops, no rubs, normal peripheral pulses Heart - other findings: S1, S2 Respiratory: rhonchi, tachypneic Respiratory - other findings: diminished bilat, coarse Gastrointestinal: soft, non-tender, normal bowel sounds, no guarding, no rigidity Gastrointestinal - other findings: distended Extremities: no cyanosis, no clubbing, no edema Skin: normal turgor Neurological: cranial nerve grossly intact Musculoskeletal: generalized weakness Psychiatric: oriented to person, somnolent, lethargic Hosp A/P (1) Acute respiratory failure with hypoxia Code(s): J96.01 - ACUTE RESPIRATORY FAILURE WITH HYPOXIA Status: Acute Plan: Continue O2 support, Pulmicort/Duonebs (2) E coli bacteremia Code(s): R78.81 - BACTEREMIA; B96.20 - UNSP ESCHERICHIA COLI THE CAUSE OF DISEASES CLASSD ELSWHR Status: Acute Plan: Continue Rocephin (3) Hepatic encephalopathy Code(s): K72.90 - HEPATIC FAILURE, UNSPECIFIED WITHOUT COMA Status: Acute (4) Sepsis Code(s): A41.9 - SEPSIS, UNSPECIFIED ORGANISM Status: Acute Qualifiers: Sepsis type: Escherichia coli Sepsis acute organ dysfunction status: with a cute organ dysfunction Severe sepsis acute organ dysfunction type: acute liver failure Severe sepsis shock status: with septic shock (5) Cirrhosis Code(s): K74.60 - UNSPECIFIED CIRRHOSIS OF LIVER Status: Chronic Qualifiers: Hepatic cirrhosis type: alcoholic cirrhosis Ascites presence: with ascites Qualified Code(s): K70.31 - Alcoholic cirrhosis of liver with ascites Plan: Advanced cirrhosis, medical mgmt (6) Acute kidney failure Status: Acute Qualifiers: Acute renal failure type: with acute tubular necrosis Qualified Code(s): N17.0 - Acute kidney failure with tubular necrosis (7) Hypernatremia Code(s): E87.0 - HYPEROSMOLALITY AND HYPERNATREMIA Status: Acute Plan: Improved, continue D5 1/4 NS, serial Na+ monitoring (8) Dysphagia Code(s): R13.10 - DYSPHAGIA, UNSPECIFIED Status: Acute Qualifiers: Dysphagia type: oropharyngeal phase Qualified Code(s): R13.12 - Dysphagia, oropharyngeal phase Plan: NPO currently, repeat ELECTRONICS DEPARTMENT MANAGER evaluation in am, may need Dobhoff or consideration of PEG - Plan continue antibiotics, PT/OT, nursing home social worker, speech therapy, respiratory therapy, DVT proph w/SCDs Consults: Palliative Care Continue supportive mgmt Poor overall prognosis Code Status: DNAR Continue D5 1/4 NS MELD score= 28 Limit sedation PT/OT for mobilization Wound care consult AM lab: CMP, CBC
[2020-02-10] MEDS: Budesonide 0.5 MG/2 ML NEB NEB SCH (18:33)
[2020-02-11] MEDS: Metoclopramide HCl 10 MG/2 ML VIAL IVP SCH ×3 (03:39→15:33)
[2020-02-11 04:20] LABS: ALT (SGPT) 52 U/L (8-55); AST (SGOT) 52 U/L (5-34); Albumin 3.1 g/dL (3.5-5.0); Alkaline Phosphatase 202 U/L (40-110); Anion Gap 12 mmol/L (10-20); BUN (Urea Nitrogen) 22 mg/dL (8.9-20.6); Bilirubin, Total 2.5 mg/dL (0.2-1.2); Calc. Creatinine Clearance 222 mL/min (70-130); Calcium 8.5 mg/dL (7.8-10.44); Carbon Dioxide 28 mmol/L (22-29); Chloride 113 mmol/L (98-107); Estimated GFR-MDRD Greater than 90; Globulin 1.8 g/dL (2.4-3.5); Glucose 195 mg/dL (70-105); Potassium 4.2 mmol/L (3.5-5.1); Protein, Total 4.9 g/dL (6.0-8.3); Sodium 149 mmol/L (136-145)
[2020-02-11 04:25] LABS: Hemoglobin 9.7 g/dL (14.0-18.0); Mean Corpuscular HGB CONC 31.3 g/dL (32.0-36.0); Mean Corpuscular Volume 98.9 fL (78.0-98.0); Mean Platelet Volume 11.2 fL (7.4-10.4); Platelet Count 110 thou/uL (130-400); RBC Distribution Width 17.3 % (11.5-14.5); Red Blood Cell (RBC) Count 3.12 mill/uL (4.70-6.10); White Blood Cell (WBC) Count 11.7 thou/uL (4.8-10.8)
[2020-02-11 04:26] LABS: Band 7 % (5-11); MDiff Complete? YES; Monocytes 5 % (0-10); Neutrophil 88 % (42-75); Platelet Morphology Comment Appears Decreased
[2020-02-11] MEDS: D5 1/4 NS 1,000 ML IV SCH (06:21)
[2020-02-11] MEDS: Budesonide 0.5 MG/2 ML NEB NEB SCH ×2 (08:05→18:46)
--- NOTE | 2020-02-11 08:54 | RAD ---
CHEST 1 VIEW: Date: 02/11/2020 HISTORY: Pneumonia. COMPARISON: 02/10/2020. FINDINGS/IMPRESSION: Poor inspiration with bilateral vascular congestion, small pleural effusions, and bilateral perihilar parenchymal changes. Possibly slight improvement. Continue short-term follow-up. POS: RRE
--- NOTE | 2020-02-11 08:58 | CON ---
DATE OF CONSULTATION: 02/10/2020 SUBJECTIVE: Mr. Cesar is little bit more awake today, talking to his nurses. He knows he is at [facility]. Feels his breathing is better. He does not really want to eat yet. The nurses note he did not pass the swallowing study with Speech Pathology. He was extubated 2 days ago. MEDICATIONS: Remains on some Reglan, hydrocortisone, Rocephin, steroid inhalers, Protonix 40 q.12. He is off pressors. PHYSICAL EXAMINATION: VITAL SIGNS: Pulse 100 to 110, temperature is 98, blood pressure 162/119. Hernandez output 1295 yesterday. GENERAL: He is in bed. He has a tremulous voice. He does know where he is. He tracks and follows with his eyes. He is mildly icteric. LUNGS: Clear with decreased breath sounds at bases. ABDOMEN: Protuberant, soft, nondistended, nontender. EXTREMITIES: Reveal trace edema. LABORATORY DATA: White count 12.8, hemoglobin is 10.0, platelet count 115. INR is 1.6. Sodium 147, potassium 5.2, BUN and creatinine are 29 and 0.7. Bilirubin is 2.8 today, down from 3.6. AST and ALT are 67 and 52, alkaline phosphatase is 230. Blood cultures were positive for E. coli. Urine cultures were never sent since admission. Stool was negative for C. difficile. ASSESSMENT: 1. Ulcerative colitis been on since last admission and was in remission endoscopically. Also the patient had been on prednisone which he has not been on since last admission. 2. Recent episodes of sepsis, now on this admission with recurrence. Last time, culture showed nothing and this time it shows E. coli. Unfortunately, urine was not cultured. He did have a mildly elevated white count in his tap fluid from his belly. White cells are 525 and red blood cells this technically would meet criteria for SBP. 3. Mental status changes with normal ammonia, likely related to Wernicke-Korsakoff, malnutrition, chronic alcohol abuse, ICU psychosis, hypernatremia. 4. Hypernatremia, improving. 5. The patient failed swallow test today. He did not have any problems on last admission. RECOMMENDATIONS: 1. I would re-evaluate him tomorrow for swallowing, the sooner he can start taking p.o. the better. He is not a candidate for a PEG tube secondary to recurrent ascites. If he is going to need feeding, he is going to need it through a Dobhoff. If he is unable to starting tomorrow, he needs to be fed through the Dobhoff. 2. We will follow along with you. Job ID: [id number]
--- NOTE | 2020-02-11 09:59 | PRG ---
DATE OF SERVICE: 02/11/2020 SUBJECTIVE: Silvio Cesar is a 39-year-old morbidly obese gentleman with alcoholic liver disease. He is extubated. He is doing well. X-ray still shows bibasilar infiltrates, pleural effusion. OBJECTIVE: VITAL SIGNS: Temperature is 96.5, pulse 95, saturations are 98% on 2 L, blood pressure 140/90. His I's and O's are slightly positive. CHEST: No wheezing. No crackles. CARDIAC: Normal S1 and S2. No gallop. ABDOMEN: No masses. LABORATORY DATA: White count 11,000, platelet count is 110. His lytes are normal. ASSESSMENT: 1. Morbid obesity, respiratory failure. 2. Alcoholic liver disease, severe deconditioning. His bilirubin down to 2.5. PLAN: Plan is to try and continue aggressive PT. He is a DNR. Speech to see him, try and get him a liquid diet if possible. Overall, prognosis is guarded. Job ID: [id number]
[2020-02-11] MEDS: Pantoprazole 40 MG VIAL IVP SCH ×2 (10:08→21:26)
[2020-02-11] MEDS: Nystatin Powder 15 GM BOT TOP SCH ×2 (10:09→21:29)
[2020-02-11] MEDS: Hydrocortisone Sod Succ/PF 100 mg/2 ml Vial IVP SCH (10:10)
[2020-02-11] MEDS: Labetalol HCl 100 MG/20 ML VIAL SLOW IVP PRN (10:12)
[2020-02-11] MEDS: cefTRIAXone\\ROCEPHIN 2 GM in Sodium Chloride 0.9% 100 ML IVPB SCH (15:33)
--- NOTE | 2020-02-11 16:02 | RAD ---
EXAM: ABDOMEN ONE VIEW: 02/11/20 HISTORY: NG tube placement position and evaluation. COMPARISON: 01/15/20. FINDINGS: An NG tube is noted, slightly coiled distally but extends into the stomach. No bowel obstruction. IMPRESSION: Somewhat distally coiled NG tube extends into the stomach. POS: RRE
--- NOTE | 2020-02-11 18:33 | RAD ---
SUPINE ABDOMEN: 02/11/20 INDICATIONS: Assess feeding tube placement. FINDINGS/IMPRESSION: Dobhoff type feeding tube passes through the EG junction and overlies the mid abdomen. The tip overli es the region of the gastric antrum. POS: AGW
--- NOTE | 2020-02-11 18:50 | PDOC.HOSPP ---
- Subjective Encounter Date: 02/11/20 Encounter Time: 12:30 Subjective: Patient seen for follow-up regarding acute hypoxic respiratory failure. Denies chest pain or shortness of breath. - Objective Vital Signs & Weight: Vital Signs (12 hours) Temp Pulse Resp BP Pulse Ox 02/11/20 18:45 84 24 H 96 02/11/20 15:28 97.0 F L 02/11/20 14:28 86 26 H 92 L 02/11/20 11:50 96.8 F L 02/11/20 10:12 93 162/113 H 02/11/20 08:03 93 23 H 02/11/20 07:30 98 02/11/20 07:10 96.5 F L Weight Admit Weight 221 lb Weight 220 lb 9.6 oz Most Recent Monitor Data Heart Rate from ECG 83 NIBP 151/107 NIBP BP-Mean 121 Respiration from ECG 21 SpO2 97 I&O: 02/10/20 02/11/20 02/12/20 06:59 06:59 06:59 Intake Total 3494 1497 Output Total 1295 1365 Balance 2199 132 Result Diagrams: 02/11/20 03:45 02/11/20 03:45 Additional Labs: Accuchecks 02/11/20 02/11/20 02/11/20 12:34 06:03 00:50 POC Glucose 170 H 165 H 165 H 02/10/20 02/09/20 04:39 16:20 POC Glucose 166 H 209 H I reviewed patient's labs and MAR EKG Reviewed by me: Yes (Telemetry: Normal sinus rhythm) Hospitalist ROS - Review of Systems Cardiovascular: denies: chest pain, palpitations, orthopnea, paroxysmal noc. dyspnea, edema, light headedness Gastrointestinal: denies: nausea, vomiting, abdominal pain, diarrhea, constipation, melena, hematochezia - Medication Medications: Active Medications Generic Name Dose Route Start Last Admin Trade Name Freq PRN Reason Stop Dose Admin Albuterol/Ipratropium 3 ml 02/08/20 13:00 02/11/20 18:45 Ipratropium/Albuterol Sulfate 3 Ml Neb NEB 3 ml [id number] ABRAM Administration Budesonide 0.5 mg 02/10/20 18:30 02/11/20 18:46 Budesonide 0.5 Mg/2 Ml Neb NEB 0.5 mg BID-RT ABRAM Administration Norepinephrine Bitartrate 250 mls @ 0 mls/hr 01/31/20 23:37 02/04/20 12:02 Levophed IVPB 250 mls PRN PRN Administration To maintain MAP > 65 Protocol Titrate Vasopressin 20 unit/ 51 mls @ 0 mls/hr 02/01/20 09:30 02/02/20 16:43 Miscellaneous Medication 1 IV 51 mls each/ Sodium Chloride INF ABRAM Administration Protocol As Directed Ceftriaxone Sodium 2 gm/ 100 mls @ 200 mls/hr 02/03/20 14:00 02/11/20 15:33 Sodium Chloride IVPB 100 mls Q24HR ABRAM Administration Dextrose/Sodium Chloride 1,000 mls @ 50 mls/hr 02/10/20 08:45 02/11/20 06:21 D5 1/4 Ns IV 1,000 mls .Q20H ABRAM Administration Insulin Human Lispro 0 units 01/31/20 23:37 02/10/20 04:43 Humalog 300 Units/3 Ml Vial SC 2 unit .MILD SLIDING SCALE PRN Administration Mild Correctional Scale Labetalol HCl 20 mg 01/31/20 23:35 02/11/20 10:12 Labetalol Hcl 100 Mg/20 Ml Vial SLOW IVP 20 mg Q4H PRN Administration SBP > 160 use third Nystatin 0 gm 02/02/20 09:00 02/11/20 10:09 Nystatin Powder 15 Gm Bot TOP 1 applic BID ABRAM Administration Ondansetron HCl 4 mg 01/31/20 23:35 02/07/20 21:48 Ondansetron Pf 4 Mg/2 Ml Vial IVP 4 mg Q6H PRN Administration Nausea/Vomiting use 1st Pantoprazole Sodium 40 mg 02/07/20 21:00 02/11/20 10:08 Pantoprazole 40 Mg Vial IVP 40 mg Q12HR ABRAM Administration Sodium Chloride 10 ml 02/07/20 12:15 02/10/20 08:35 Sodium Chloride 0.9% (Pf) 10 Ml Vial FS 10 ml PRN PRN Administration RECONSTITUTION - Exam General - other findings: Obese Eye: scleral icterus ENT: normocephalic atraumatic Neck: supple Heart: RRR Respiratory: CTAB Gastrointestinal: soft, non-tender Neurological: no weakness Psychiatric: normal affect Hosp A/P - Plan -Assessment (1) Acute respiratory failure with hypoxia Code(s): J96.01 - ACUTE RESPIRATORY FAILURE WITH HYPOXIA Status: Acute (2) E coli bacteremia Code(s): R78.81 - BACTEREMIA; B96.20 - UNSP ESCHERICHIA COLI THE CAUSE OF DISEASES CLASSD ELSWHR Status: Acute (3) Hepatic encephalopathy Code(s): K72.90 - HEPATIC FAILURE, UNSPECIFIED WITHOUT COMA Status: Acute (4) Dysphagia Code(s): R13.10 - DYSPHAGIA, UNSPECIFIED Status: Acute (5) Cirrhosis Code(s): K74.60 - UNSPECIFIED CIRRHOSIS OF LIVER Status: Chronic Qualifiers: Hepatic cirrhosis type: alcoholic cirrhosis Ascites presence: with ascites Qualified Code(s): K70.31 - Alcoholic cirrhosis of liver with ascites Plan: Advanced cirrhosis, medical mgmt (7) Hypernatremia Code(s): E87.0 - HYPEROSMOLALITY AND HYPERNATREMIA Status: Acute (8) Acute kidney failure Status: Resolved (9) Septic shock Status: Resolved - Plan continue antibiotics, PT/OT, social worker delinquency prevention, speech therapy, respiratory therapy, DVT proph w/SCDs Continue ceftriaxone for E. coli bacteremia. Start NG tube feeds. Sodium 149 today.
[2020-02-12] MEDS: D5 1/4 NS 1,000 ML IV SCH ×2 (03:11→20:20)
[2020-02-12 03:38] LABS: #Eosinphils 0.1 thou/uL (0.0-0.7); #Lymphocytes 0.5 thou/uL (1.20-3.40); #Monocytes 0.9 thou/uL (0.11-0.59); #Neutrophils 14.9 thou/uL (1.40-6.50); %Basophils 0.2 % (0.0-1.0); %Eosinophils 0.5 % (0.0-10.0); %Lymphocytes 3.1 % (21.0-51.0); %Monocytes 5.5 % (0.0-10.0); %Neutrophils 90.8 % (42.0-75.0); Hemoglobin 11.2 g/dL (14.0-18.0); Mean Corpuscular HGB CONC 31.3 g/dL (32.0-36.0); Mean Corpuscular Volume 99.2 fL (78.0-98.0); Mean Platelet Volume 11.6 fL (7.4-10.4); Platelet Count 120 thou/uL (130-400); RBC Distribution Width 17.4 % (11.5-14.5); Red Blood Cell (RBC) Count 3.62 mill/uL (4.70-6.10); White Blood Cell (WBC) Count 16.4 thou/uL (4.8-10.8)
[2020-02-12 03:51] LABS: ALT (SGPT) 62 U/L (8-55); AST (SGOT) 79 U/L (5-34); Albumin 3.1 g/dL (3.5-5.0); Alkaline Phosphatase 241 U/L (40-110); Anion Gap 9 mmol/L (10-20); BUN (Urea Nitrogen) 16 mg/dL (8.9-20.6); Bilirubin, Total 2.4 mg/dL (0.2-1.2); Calc. Creatinine Clearance 236 mL/min (70-130); Calcium 8.3 mg/dL (7.8-10.44); Carbon Dioxide 30 mmol/L (22-29); Chloride 113 mmol/L (98-107); Estimated GFR-MDRD Greater than 90; Globulin 1.8 g/dL (2.4-3.5); Glucose 196 mg/dL (70-105); Potassium 3.4 mmol/L (3.5-5.1); Protein, Total 4.9 g/dL (6.0-8.3); Sodium 149 mmol/L (136-145)
[2020-02-12] MEDS: HumaLOG 300 UNITS/3 ML VIAL SC PRN (06:16)
--- NOTE | 2020-02-12 06:44 | PRG ---
DATE OF SERVICE: 02/11/2020 SUBJECTIVE: Mr. Cesar knows he is in the hospital. He knows what hospital he is at. His mother is at the bedside, and he recognizes her. He had a Dobhoff in earlier today and pulled that out. Nurse informs me that Speech felt that he was at high risk for aspiration. MEDICATIONS: Reviewed. He is on, 1. Tylenol elixir. 2. Maalox. 3. DuoNeb. 4. Pulmicort. 5. Rocephin. 6. . 7. Labetolol. 8. Metoclopramide. 9. Levophed is off. 10. Nystatin. 11. P.r.n. Phenergan. OBJECTIVE: VITAL SIGNS: Temperature 97, pulse 86, respirations 26, blood pressure 141/91. GENERAL: He has temporal wasting. LUNGS: Decreased breath sounds. ABDOMEN: Protuberant, but not tight at this time. EXTREMITIES: Reveal trace edema. LABORATORY DATA: White count 11.7, hemoglobin 9.7, and platelet count 110. Sodium went back up to 149, potassium 4.2, BUN and creatinine 22 and 0.6. Bilirubin is 2.5, AST 52, ALT 52, alkaline phosphatase 202. Abdominal x-ray earlier today showed an NG tube coiled in the stomach, which was really a Dobhoff, but it has been pulled by the patient. Chest x-ray today, inspiratory effort with slight improvement. ASSESSMENT: 1. Ulcerative colitis, in remission with Humira. He has been off this now for over four weeks. 2. Alcoholic liver disease. Extensive workup otherwise negative. 3. Malnutrition. 4. Hepatic encephalopathy, improved. 5. E coli sepsis, improved. 6. Ascites, improved. 7. Renal failure, improved. RECOMMENDATIONS: 1. Stop the Reglan. That may be affecting the mental status, unless he needs it on tube feeds. 2. Try to replace Dobhoff. 3. Avoid sedating the patient, hopefully he will wake up a little more in the next day or two and can eat on his own. He did not have any issues with dysphagia before this hospitalization. Job ID: [id number]
[2020-02-12] MEDS: Budesonide 0.5 MG/2 ML NEB NEB SCH ×2 (07:35→18:51)
--- NOTE | 2020-02-12 08:39 | RAD ---
PORTABLE CHEST: HISTORY: Pneumonia followup. COMPARISON: 02/11/2020. FINDINGS/IMPRESSION: Bilateral effusions opacify both lung bases with associated bibasilar atelectasis. The left perihila r infiltrate and consolidation appears improved when compared to yesterday. POS: AGW
[2020-02-12] MEDS: Nystatin Powder 15 GM BOT TOP SCH ×2 (08:47→20:25)
[2020-02-12] MEDS: Pantoprazole 40 MG VIAL IVP SCH ×2 (08:47→20:18)
[2020-02-12] MEDS ORDERED: Digoxin 0.5 MG/2 ML AMP ONE (12:01)
[2020-02-12] MEDS: cefTRIAXone\\ROCEPHIN 2 GM in Sodium Chloride 0.9% 100 ML IVPB SCH (12:53)
[2020-02-12] MEDS: Diltiazem HCl 125 MG, Admixture Fee 1 EACH in Sodium Chloride 0.9% 100 ML IVPB SCH (12:53)
[2020-02-12] MEDS ORDERED: Albumin 25% 100 ML ONE (16:45)
[2020-02-12 16:48] LABS: Actual Bicarbonate (HCO3a) 24.5 mEq/L (22-28); Base Excess (BEa) -1.3 mEq/L (-2.0 to +3.0); CO2 Tension 45.8 mmHg (35.0-45.0); Calcium, Ionized (arterial) 1.16 mmol/L (1.12-1.30); Carboxyhemoglobin (COHb) 0.6 gm% (0.0-3.0); Hemoglobin (Hb) 12.7 g/dL (14.0-18.0); Potassium - ABG Lab 2.89 mmol/L (3.70-5.30); pH, Arterial 7.35 (7.35-7.45)
[2020-02-12 16:54] LABS: O2 Tension (PaO2), arterial 52.3 mmHg (80.0-100.0); Puncture Site LRAD
[2020-02-12] MEDS ORDERED: Sodium Chloride 0.9% 500 ML IVPB SCH (17:45)
[2020-02-12] MEDS ORDERED: Albumin 25% 25 GM/100 ML BOT IVPB SCH (17:45)
--- NOTE | 2020-02-12 18:30 | PDOC.HOSPP ---
- Subjective Encounter Date: 02/12/20 Encounter Time: 18:29 Subjective: Patient was seen for follow-up regarding hypotension. He had an episode of atrial fibrillation with rapid ventricular response earlier today, improved and converted to normal sinus rhythm with Cardizem drip. Today evening he had an episode of hypotension and hypoxia, which improved with intravenous albumin and normal saline bolus and supplemental oxygen. Patient is currently in mild distress, could not complete review of systems. - Objective Vital Signs & Weight: Vital Signs (12 hours) Temp Pulse Resp Pulse Ox 02/12/20 15:44 98.0 F 02/12/20 12:52 97 02/12/20 12:00 97.0 F L 02/12/20 07:43 97 02/12/20 07:31 97 02/12/20 07:30 97 28 H 97 Weight Admit Weight 221 lb Weight 222 lb 8 oz Most Recent Monitor Data Heart Rate from ECG 107 NIBP 91/58 NIBP BP-Mean 69 Respiration from ECG 28 SpO2 98 I&O: 02/11/20 02/12/20 02/13/20 06:59 06:59 06:59 Intake Total 1497 1780 90 Output Total 1365 1100 Balance 132 680 90 Result Diagrams: 02/12/20 03:20 02/12/20 03:20 Additional Labs: Accuchecks 02/12/20 02/12/20 02/12/20 10:51 06:05 00:23 POC Glucose 171 H 190 H 161 H 02/11/20 19:18 POC Glucose 138 H I reviewed patient's labs and MAR EKG Reviewed by me: Yes (Telemetry: NSR) Hospitalist ROS - Review of Systems ROS unobtainable: due to mental status - Medication Medications: Active Medications Generic Name Dose Route Start Last Admin Trade Name Freq PRN Reason Stop Dose Admin Albuterol/Ipratropium 3 ml 02/08/20 13:00 02/12/20 12:14 Ipratropium/Albuterol Sulfate 3 Ml Neb NEB Not Given [id number] ABRAM Budesonide 0.5 mg 02/10/20 18:30 02/12/20 07:35 Budesonide 0.5 Mg/2 Ml Neb NEB 0.5 mg BID-RT ABRAM Administration Norepinephrine Bitartrate 250 mls @ 0 mls/hr 01/31/20 23:37 02/04/20 12:02 Levophed IVPB 250 mls PRN PRN Administration To maintain MAP > 65 Protocol Titrate Vasopressin 20 unit/ 51 mls @ 0 mls/hr 02/01/20 09:30 02/02/20 16:43 Miscellaneous Medication 1 IV 51 mls each/ Sodium Chloride INF ABRAM Administration Protocol As Directed Ceftriaxone Sodium 2 gm/ 100 mls @ 200 mls/hr 02/03/20 14:00 02/12/20 12:53 Sodium Chloride IVPB 100 mls Q24HR ABRAM Administration Dextrose/Sodium Chloride 1,000 mls @ 50 mls/hr 02/10/20 08:45 02/12/20 03:11 D5 1/4 Ns IV 1,000 mls .Q20H ABRAM Administration Diltiazem HCl 125 mg/ 125 mls @ 10 mls/hr 02/12/20 12:30 02/12/20 12:53 Miscellaneous Medication 1 IVPB 125 mls each/ Sodium Chloride INF ABRAM Administration Protocol Insulin Human Lispro 0 units 01/31/20 23:37 02/12/20 06:16 Humalog 300 Units/3 Ml Vial SC 2 unit .MILD SLIDING SCALE PRN Administration Mild Correctional Scale Labetalol HCl 20 mg 01/31/20 23:35 02/11/20 10:12 Labetalol Hcl 100 Mg/20 Ml Vial SLOW IVP 20 mg Q4H PRN Administration SBP > 160 use third Nystatin 0 gm 02/02/20 09:00 02/12/20 08:47 Nystatin Powder 15 Gm Bot TOP 1 applic BID ABRAM Administration Ondansetron HCl 4 mg 01/31/20 23:35 02/07/20 21:48 Ondansetron Pf 4 Mg/2 Ml Vial IVP 4 mg Q6H PRN Administration Nausea/Vomiting use 1st Pantoprazole Sodium 40 mg 02/07/20 21:00 02/12/20 08:47 Pantoprazole 40 Mg Vial IVP 40 mg Q12HR ABRAM Administration Sodium Chloride 10 ml 02/07/20 12:15 02/10/20 08:35 Sodium Chloride 0.9% (Pf) 10 Ml Vial FS 10 ml PRN PRN Administration RECONSTITUTION - Exam General Appearance: awake alert Eye: scleral icterus ENT: no oropharyngeal lesions Neck: supple Heart: RRR Respiratory: CTAB Gastrointestinal: soft, non-tender Extremities: 2+ LE edema Skin: no rashes Psychiatric: normal affect Hosp A/P - Plan -Assessment (1) hypotension Status: Acute (2) Acute respiratory failure with hypoxia Code(s): J96.01 - ACUTE RESPIRATORY FAILURE WITH HYPOXIA Status: Acute (3) E coli bacteremia Code(s): R78.81 - BACTEREMIA; B96.20 - UNSP ESCHERICHIA COLI THE CAUSE OF DISEASES CLASSD ELSWHR Status: Acute (4) Dysphagia Code(s): R13.10 - DYSPHAGIA, UNSPECIFIED Status: Acute (5) Cirrhosis Code(s): K74.60 - UNSPECIFIED CIRRHOSIS OF LIVER Status: Chronic Qualifiers: Hepatic cirrhosis type: alcoholic cirrhosis Ascites presence: with ascites Qualified Code(s): K70.31 - Alcoholic cirrhosis of liver with ascites Plan: Advanced cirrhosis, medical mgmt (7) Hypernatremia Code(s): E87.0 - HYPEROSMOLALITY AND HYPERNATREMIA Status: Acute (8) Acute kidney failure Status: Resolved (9) Septic shock Status: Resolved (3) Hepatic encephalopathy Code(s): K72.90 - HEPATIC FAILURE, UNSPECIFIED WITHOUT COMA Status: Acute - Plan continue antibiotics, PT/OT, director of social work, speech therapy, respiratory therapy, DVT proph w/SCDs Etiology of hypotension is unclear, improved slightly after administration of intravenous albumin and it intravenous normal saline boluses. Continue ceftriaxone for E. coli bacteremia. NG tube feeds were held. Prognosis guarded.
[2020-02-12 18:36] LABS: CKMB 0.8 ng/mL (0-6.6)
--- NOTE | 2020-02-12 20:04 | PRG ---
DATE OF SERVICE: 02/12/2020 SUBJECTIVE: Mr. Cesar was evaluated this morning. He is in no distress, although he looks extremely weak and chronically ill. OBJECTIVE: VITAL SIGNS: He is afebrile. Hemodynamically stable. LUNGS: Remarkable for coarse and equal breath sounds. HEART: Regular rhythm. ABDOMEN: Soft and very distended. EXTREMITIES: Without asymmetry. LABORATORY DATA: White count 16.4, hemoglobin 11.2, platelets 120. Sodium 149, potassium 3.4, chloride 113, bicarb 30, BUN 16, creatinine 0.6. pH 7.35, CO2 45, PO2 52 this afternoon. The patient's 1 blood culture grew E coli; one blood culture grew coag-negative staph. IMPRESSION: 1. Cirrhosis. 2. Severe deconditioning. 3. Escherichia coli bacteremia, which I would wonder if this had been from spontaneous bacterial peritonitis. 4. Chronic kidney disease. 5. Hepatic encephalopathy. 6. Pleural effusion, secondary to liver disease. PLAN: Continue supportive care. His prognosis is dismal. Job ID: [id number]
[2020-02-13 04:53] LABS: ALT (SGPT) 59 U/L (8-55); AST (SGOT) 65 U/L (5-34); Albumin 2.8 g/dL (3.5-5.0); Alkaline Phosphatase 185 U/L (40-110); Anion Gap 12 mmol/L (10-20); BUN (Urea Nitrogen) 19 mg/dL (8.9-20.6); Bilirubin, Total 2.8 mg/dL (0.2-1.2); Calc. Creatinine Clearance 164 mL/min (70-130); Calcium 7.9 mg/dL (7.8-10.44); Carbon Dioxide 27 mmol/L (22-29); Chloride 113 mmol/L (98-107); Estimated GFR-MDRD Greater than 90; Globulin 1.6 g/dL (2.4-3.5); Glucose 250 mg/dL (70-105); Potassium 3.7 mmol/L (3.5-5.1); Protein, Total 4.4 g/dL (6.0-8.3); Sodium 148 mmol/L (136-145)
[2020-02-13 05:15] LABS: Band 10 % (5-11); Elliptocytes SLIGHT = 2-5 cells (100X) (0-1/hpf); Hemoglobin 9.6 g/dL (14.0-18.0); Lymphocytes 2 % (21-51); MDiff Complete? YES; Mean Corpuscular HGB CONC 31.6 g/dL (32.0-36.0); Mean Corpuscular Hemoglobin 31.1 pg (27.0-31.0); Mean Corpuscular Volume 98.6 fL (78.0-98.0); Mean Platelet Volume 12.8 fL (7.4-10.4); Monocytes 1 % (0-10); Neutrophil 87 % (42-75); Platelet Count 87 thou/uL (130-400); RBC Distribution Width 17.3 % (11.5-14.5); Red Blood Cell (RBC) Count 3.07 mill/uL (4.70-6.10); Target Cells SLIGHT = 2-5 cells (100X) (0-1/hpf)
[2020-02-13] MEDS: HumaLOG 300 UNITS/3 ML VIAL SC PRN (06:58)
[2020-02-13] MEDS: Budesonide 0.5 MG/2 ML NEB NEB SCH ×2 (07:15→18:38)
--- NOTE | 2020-02-13 08:20 | PRG ---
DATE OF SERVICE: 02/12/2020 SUBJECTIVE: This is a 39-year-old male with ulcerative colitis in remission. the patient has chronic kidney disease and also chronic liver disease. the patient has Dobhoff feeding and is having diarrhea as per the Nurses ._He is having loose stools. He is awake, _but appears weak. He denies any abdominal pain. OBJECTIVE: VITAL SIGNS: Afebrile. Pulse is 86 Blood pressure-120/76 CARDIOVASCULAR: normal heart sounds heard. RESPIRATORY: clear to auscultation. Abdomen - soft, distended, non tender LABORATORY: WBC has gone up to 16,400, hemoglobin 11.2, Chemistry panel, slightly low potassium 3.4, BUN is 16, creatinine 0.60, bilirubin 2.4, AST is 79, . IMPRESSION: 1. Liver cirrhosis , ascites . 2. Ulcerative colitis, in remission .. 4. Escherichia coli sepsis. 5. Ascites. 6. Chronic kidney disease. RECOMMENDATION: 1. continue the tube feeding. 2. continue the antibiotics. 3. Followup labs. Job ID: [id number] [facility]
[2020-02-13] MEDS: Pantoprazole 40 MG VIAL IVP SCH ×2 (10:34→20:42)
[2020-02-13] MEDS: Nystatin Powder 15 GM BOT TOP SCH ×2 (10:36→20:43)
--- NOTE | 2020-02-13 11:58 | RAD ---
PORTABLE CHEST: DATE: 02/13/2020. PROVIDED CLINICAL HISTORY: Pneumonia. FINDINGS: Comparison 02/12/2020. Evaluation is limited by lung hypoinflation and patient body habitus. Bibasi lar pleural parenchymal opacities are redemonstrated. Pulmonary vascular congestion is suggested, th ough this is not certain. There is no evidence for pneumothorax. Support apparatus appears stable. IMPRESSION: As above. POS: ROBERT
--- NOTE | 2020-02-13 13:18 | PDOC.HOSPP ---
- Subjective Encounter Date: 02/13/20 Encounter Time: 10:00 Subjective: Seen for follow-up regarding acute hypoxic respiratory failure. More alert today. Reports sleeping on and off. - Objective Vital Signs & Weight: Vital Signs (12 hours) Temp Pulse Resp Pulse Ox 02/13/20 12:41 103 H 25 H 94 L 02/13/20 11:56 97.4 F L 02/13/20 07:18 95 02/13/20 07:16 99 02/13/20 07:14 100 22 H 99 02/13/20 06:59 97.2 F L Weight Admit Weight 221 lb Weight 219 lb 1.6 oz Most Recent Monitor Data Heart Rate from ECG 103 NIBP 115/79 NIBP BP-Mean 91 Respiration from ECG 25 SpO2 94 I&O: 02/12/20 02/13/20 02/14/20 06:59 06:59 06:59 Intake Total 1780 3690 30 Output Total 1100 1120 Balance 680 2570 30 Result Diagrams: 02/13/20 04:00 02/13/20 04:00 Additional Labs: Accuchecks 02/13/20 02/13/20 02/12/20 12:05 06:24 23:09 POC Glucose 150 H 240 H 130 H 02/12/20 02/12/20 19:28 18:40 POC Glucose 74 64 L I reviewed patient's labs and MAR EKG Reviewed by me: Yes (Telemetry: Atrial fibrillation) Hospitalist ROS - Review of Systems Constitutional: reports: weakness Respiratory: reports: SOB with excertion Gastrointestinal: denies: nausea, vomiting, abdominal pain, diarrhea, constipation, melena, hematochezia - Medication Medications: Active Medications Generic Name Dose Route Start Last Admin Trade Name Freq PRN Reason Stop Dose Admin Albuterol/Ipratropium 3 ml 02/08/20 13:00 02/13/20 12:41 Ipratropium/Albuterol Sulfate 3 Ml Neb NEB 3 ml [id number] ABRAM Administration Budesonide 0.5 mg 02/10/20 18:30 02/13/20 07:15 Budesonide 0.5 Mg/2 Ml Neb NEB 0.5 mg BID-RT ABRAM Administration Norepinephrine Bitartrate 250 mls @ 0 mls/hr 01/31/20 23:37 02/04/20 12:02 Levophed IVPB 250 mls PRN PRN Administration To maintain MAP > 65 Protocol Titrate Vasopressin 20 unit/ 51 mls @ 0 mls/hr 02/01/20 09:30 02/02/20 16:43 Miscellaneous Medication 1 IV 51 mls each/ Sodium Chloride INF ABRAM Administration Protocol As Directed Ceftriaxone Sodium 2 gm/ 100 mls @ 200 mls/hr 02/03/20 14:00 02/12/20 12:53 Sodium Chloride IVPB 100 mls Q24HR ABRAM Administration Dextrose/Sodium Chloride 1,000 mls @ 50 mls/hr 02/10/20 08:45 02/12/20 20:20 D5 1/4 Ns IV 1,000 mls .Q20H ABRAM Administration Diltiazem HCl 125 mg/ 125 mls @ 10 mls/hr 02/12/20 12:30 02/12/20 12:53 Miscellaneous Medication 1 IVPB 125 mls each/ Sodium Chloride INF ABRAM Administration Protocol Insulin Human Lispro 0 units 01/31/20 23:37 02/13/20 06:58 Humalog 300 Units/3 Ml Vial SC 3 unit .MILD SLIDING SCALE PRN Administration Mild Correctional Scale Labetalol HCl 20 mg 01/31/20 23:35 02/11/20 10:12 Labetalol Hcl 100 Mg/20 Ml Vial SLOW IVP 20 mg Q4H PRN Administration SBP > 160 use third Nystatin 0 gm 02/02/20 09:00 02/13/20 10:36 Nystatin Powder 15 Gm Bot TOP 1 applic BID ABRAM Administration Ondansetron HCl 4 mg 01/31/20 23:35 02/07/20 21:48 Ondansetron Pf 4 Mg/2 Ml Vial IVP 4 mg Q6H PRN Administration Nausea/Vomiting use 1st Pantoprazole Sodium 40 mg 02/07/20 21:00 02/13/20 10:34 Pantoprazole 40 Mg Vial IVP 40 mg Q12HR ABRAM Administration Sodium Chloride 10 ml 02/07/20 12:15 02/10/20 08:35 Sodium Chloride 0.9% (Pf) 10 Ml Vial FS 10 ml PRN PRN Administration RECONSTITUTION - Exam General Appearance: ill appearing Eye: scleral icterus ENT: no oropharyngeal lesions Neck: supple Heart: irregular Respiratory: CTAB Gastrointestinal: soft Extremities: 2+ LE edema Skin: no rashes Psychiatric: oriented to person, oriented to place Psychiatric - other findings: Appears tired Hosp A/P - Plan -Assessment (1) Acute respiratory failure with hypoxia Code(s): J96.01 - ACUTE RESPIRATORY FAILURE WITH HYPOXIA Status: Acute (2) E coli bacteremia Code(s): R78.81 - BACTEREMIA; B96.20 - UNSP ESCHERICHIA COLI THE CAUSE OF DISEASES CLASSD ELSWHR Status: Acute (3) Dysphagia Code(s): R13.10 - DYSPHAGIA, UNSPECIFIED Status: Acute (4) Cirrhosis Code(s): K74.60 - UNSPECIFIED CIRRHOSIS OF LIVER Status: Chronic Qualifiers: Hepatic cirrhosis type: alcoholic cirrhosis Ascites presence: with ascites Qualified Code(s): K70.31 - Alcoholic cirrhosis of liver with ascites Plan: Advanced cirrhosis, medical mgmt (5) Hypernatremia Code(s): E87.0 - HYPEROSMOLALITY AND HYPERNATREMIA Status: Acute (6) Acute kidney failure Status: Resolved (7) Septic shock Status: Resolved (8) hypotension Status: Resolved - Plan continue antibiotics, PT/OT, social service manager, speech therapy, respiratory therapy, DVT proph w/SCDs Hypotension has resolved. Patient is on ceftriaxone for E. coli bacteremia. NG tube feeds were held. Prognosis guarded.
--- NOTE | 2020-02-13 14:59 | PRG ---
DATE OF SERVICE: 02/13/2020 SUBJECTIVE: Mr. Cesar remains stable. He dropped his blood pressure yesterday, became more hypoxemic, and after fluids and albumin, his blood pressure and oximetry improved. He says he feels better today. He still looks extremely weak. He also has the appearance of someone who is not going to survive this admission. OBJECTIVE: VITAL SIGNS: He is afebrile, heart rate is 103, respiratory rates in the 20s, oximetry is 94% on 3 L, and blood pressure 115/79. LUNGS: Clear. HEART: Regular rhythm. ABDOMEN: Distended. EXTREMITIES: Without asymmetry or edema. DIAGNOSTIC STUDIES: Chest radiograph suggestive of small bilateral effusions. IMPRESSION: 1. Escherichia coli bacteremia. 2. History of ulcerative colitis. 3. Alcoholic liver disease. 4. Malnutrition and severe deconditioning. 5. Hepatic encephalopathy, improved. 6. Ascites. 7. Anemia of chronic disease. 8. Transient renal insufficiency. PLAN: We will continue supportive care. His prognosis is extremely guarded. Job ID: [id number]
--- NOTE | 2020-02-13 15:45 | PRG ---
DATE OF SERVICE: 02/13/2020 SUBJECTIVE: Tali is an unfortunate male with liver cirrhosis, ascites, history of ulcerative colitis. The patient had developed dyspnea. A chest x-ray done showed no acute pathology. No pneumonia seen. He is tolerating tube feeding very well, but he is having diarrhea from the tube feeding_. The clinical condition has deteriorated over the last 24 hours. OBJECTIVE: GENERAL: He is awake and alert, communicative. He is dyspneic with rapid breathing. He denies abdominal pain. VITAL SIGNS: Actually stable. Afebrile, pulse is 95, blood pressure is 115/79. CARDIOVASCULAR SYSTEM: Normal heart sounds. LUNGS: Actually clear to auscultation. Some occasional rhonchi. ABDOMEN: Distended. Abdomen has ascites. It is nontender. PLAN: Continue antibiotics. Continue supportive care. Prognosis appears not good at the present time. Job ID: [id number] [facility]
[2020-02-13] MEDS: cefTRIAXone\\ROCEPHIN 2 GM in Sodium Chloride 0.9% 100 ML IVPB SCH (16:44)
[2020-02-13] MEDS: D5 1/4 NS 1,000 ML IV SCH (16:45)
[2020-02-14] MEDS: HumaLOG 300 UNITS/3 ML VIAL SC PRN (00:20)
[2020-02-14 04:59] LABS: #Eosinphils 0.1 thou/uL (0.0-0.7); #Lymphocytes 0.6 thou/uL (1.20-3.40); #Monocytes 0.8 thou/uL (0.11-0.59); #Neutrophils 15.1 thou/uL (1.40-6.50); %Eosinophils 0.5 % (0.0-10.0); %Lymphocytes 3.8 % (21.0-51.0); %Monocytes 4.8 % (0.0-10.0); %Neutrophils 90.9 % (42.0-75.0); Hemoglobin 9.3 g/dL (14.0-18.0); Mean Corpuscular HGB CONC 31.6 g/dL (32.0-36.0); Mean Corpuscular Hemoglobin 31.2 pg (27.0-31.0); Mean Corpuscular Volume 98.6 fL (78.0-98.0); Mean Platelet Volume 12.6 fL (7.4-10.4); Platelet Count 84 thou/uL (130-400); RBC Distribution Width 17.2 % (11.5-14.5); Red Blood Cell (RBC) Count 2.99 mill/uL (4.70-6.10); White Blood Cell (WBC) Count 16.7 thou/uL (4.8-10.8)
[2020-02-14 05:08] LABS: ALT (SGPT) 50 U/L (8-55); AST (SGOT) 44 U/L (5-34); Albumin 2.6 g/dL (3.5-5.0); Alkaline Phosphatase 254 U/L (40-110); Anion Gap 9 mmol/L (10-20); BUN (Urea Nitrogen) 24 mg/dL (8.9-20.6); Bilirubin, Total 1.9 mg/dL (0.2-1.2); Calc. Creatinine Clearance 188 mL/min (70-130); Calcium 7.9 mg/dL (7.8-10.44); Carbon Dioxide 28 mmol/L (22-29); Chloride 112 mmol/L (98-107); Estimated GFR-MDRD Greater than 90; Globulin 2.1 g/dL (2.4-3.5); Glucose 161 mg/dL (70-105); Potassium 3.2 mmol/L (3.5-5.1); Protein, Total 4.7 g/dL (6.0-8.3); Sodium 146 mmol/L (136-145)
[2020-02-14] MEDS: Budesonide 0.5 MG/2 ML NEB NEB SCH ×2 (07:23→19:44)
--- NOTE | 2020-02-14 08:20 | RAD ---
PORTABLE CHEST: HISTORY: Pneumonia followup. COMPARISON: Prior day's exam. FINDINGS: The film is of suboptimal inspiration. The heart size is enlarged. Dobbhoff feeding tube is below t he hemidiaphragm. Left subclavian line is unchanged in position. Bibasilar lung changes appear impr debbi as compared to the prior exam. Pulmonary vessels appear less engorged. IMPRESSION: Overall improvement to the chest. Perihilar lung markings and vascular engorgement are improved with diminishing bibasilar lung changes. POS: STAR
[2020-02-14] MEDS: Pantoprazole 40 MG VIAL IVP SCH ×2 (08:44→20:51)
[2020-02-14] MEDS: Diltiazem HCl 125 MG, Admixture Fee 1 EACH in Sodium Chloride 0.9% 100 ML IVPB SCH ×2 (08:44→20:51)
[2020-02-14] MEDS: Nystatin Powder 15 GM BOT TOP SCH ×2 (08:50→20:51)
--- NOTE | 2020-02-14 08:51 | PRG ---
DATE OF SERVICE: 02/14/2020 SUBJECTIVE: Mr. Cesar has been moved from the ICU to the [facility]. He is now DNAR. He continues to have serious issues. This morning, he is in AFib with RVR with a rate of about 170. This seems to be triggered by albuterol breathing treatments. OBJECTIVE: VITAL SIGNS: Temperature 97.3, pulse 170, blood pressure currently 90s/60s, O2 saturation 97%. HEENT: Unremarkable. NECK: No JVD. CARDIAC: S1 and S2, tachycardic. LUNGS: Diminished breath sounds at bases. ABDOMEN: With ascites. EXTREMITIES: Edematous. LABORATORY DATA: Sodium 146, potassium 3.2, chloride 112, CO2 of 28, BUN 24, creatinine 0.7, and glucose 161. White blood cell count 16.7, hematocrit 29.5, and platelet count 84. ASSESSMENT: 1. Cirrhosis. 2. Escherichia coli bacteremia. 3. History of ulcerative colitis. 4. Hepatic encephalopathy. 5. Ascites. PLAN: Cardiology has been consulted for the atrial fibrillation. Infectious Disease is managing the antibiotics. I do think at some point, the patient is going to need a repeat paracentesis. His prognosis remains fairly dismal for functional recovery. Job ID: [id number]
--- NOTE | 2020-02-14 10:50 | CON ---
DATE OF CONSULTATION: 02/14/2020 PRIMARY VARNISH REMOVER: Manoj Kohli MD REASON FOR CONSULTATION: Atrial fibrillation with a rapid rate. HISTORY OF PRESENT ILLNESS: Mr. Cesar is a 39-year-old gentleman with advanced liver disease with cirrhosis. He was admitted to the hospital earlier this month with respiratory failure and hypotension. The patient was noted to have cirrhosis. He initially required pressors to help the blood pressure. The patient also has been seen here by Dr. Bryan, Nephrology and GI as well. He has also had acute kidney injury. The patient has developed atrial fibrillation, he had some on Friday and then again today, atrial fibrillation with a rapid rate. The patient feels short of breath most of the time and fairly asymptomatic during the atrial fibrillation. PAST HISTORY: 1. Cirrhosis. 2. Acute kidney injury, but that has now resolved. His creatinine is back to normal. 3. Mild hypokalemia. 4. Seen by Dr. Kohli in 2018 with atrial fibrillation at that time. started back on intravenous Cardizem. ALLERGIES: NONE KNOWN. SOCIAL HISTORY: Per chart. PHYSICAL EXAMINATION: GENERAL: This is a pleasant 39-year-old gentleman. He is awake and alert. VITAL SIGNS: His blood pressure is 100 systolic. His pulse is 160, it is irregular. LUNGS: Clear. CARDIAC: Irregularly irregular. ABDOMEN: Some ascites, nontender. EXTREMITIES: Mild to moderate edema. PERTINENT LABORATORY DATA: Potassium is 3.2, bilirubin 1.9, which has improved. EKG reveals atrial fibrillation with a rapid ventricular response. ASSESSMENT: 1. Atrial fibrillation with a rapid ventricular response. 2. History of cirrhosis. 3. Hypokalemia. 4. Coagulopathy with baseline INR is 1.6. PLAN: 1. Give intravenous Cardizem infusion and bolus. 2. Echocardiogram to be done once the heart rate is improved. 3. Dr. Kohli will be following this patient. Job ID: [id number]
[2020-02-14] MEDS ORDERED: Magnesium Sulfate 20 GM/WATER 500 ML BAG IVPB SCH (11:30)
[2020-02-14] MEDS: Potassium Chloride 20 MEQ/100 ML PREMIX BAG IVPB SCH ×2 (11:31→14:23)
[2020-02-14] MEDS ORDERED: Magnesium Sulfate 4 GM in Sodium Chloride 0.9% 250 ML 250 ML IVPB SCH (12:15)
[2020-02-14] MEDS: cefTRIAXone\\ROCEPHIN 2 GM in Sodium Chloride 0.9% 100 ML IVPB SCH (12:33)
[2020-02-14] MEDS: D5 1/4 NS 1,000 ML IV SCH (14:24)
[2020-02-14] MEDS ORDERED: Metoprolol Tartrate 5 MG/5 ML VIAL ONE (14:28)
--- NOTE | 2020-02-14 15:41 | PDOC.HOSPP ---
- Subjective Encounter Date: 02/14/20 Encounter Time: 13:00 Subjective: Follow-up regarding acute hypoxic respiratory failure. More alert today. Denies chest pain. - Objective Vital Signs & Weight: Vital Signs (12 hours) Temp Pulse Resp Pulse Ox 02/14/20 15:00 97.4 F L 02/14/20 08:00 99 02/14/20 07:39 97.3 F L 02/14/20 07:25 99 02/14/20 07:24 99 22 H 99 02/14/20 07:23 99 22 H 99 02/14/20 03:55 97.0 F L Weight Admit Weight 221 lb 9.033 oz Weight 224 lb Most Recent Monitor Data Heart Rate from ECG 149 NIBP 123/88 NIBP BP-Mean 99 Respiration from ECG 29 SpO2 96 I&O: 02/13/20 02/14/20 02/15/20 06:59 06:59 06:59 Intake Total 3690 2720 30 Output Total 1120 1000 Balance 2570 1720 30 Result Diagrams: 02/14/20 04:00 02/14/20 04:00 Additional Labs: Accuchecks 02/14/20 02/14/20 02/14/20 12:55 06:17 00:12 POC Glucose 180 H 149 H 174 H 02/13/20 02/12/20 19:06 17:53 POC Glucose 173 H 60 L I reviewed patient's labs and MAR EKG Reviewed by me: Yes (Telemetry: Dheeraj jarrett with RVR) Hospitalist ROS - Review of Systems Cardiovascular: reports: edema. denies: chest pain, palpitations, orthopnea, paroxysmal noc. dyspnea, light headedness Genitourinary: denies: dysuria, frequency, incontinence, hematuria, retention - Medication Medications: Active Medications Generic Name Dose Route Start Last Admin Trade Name Freq PRN Reason Stop Dose Admin Budesonide 0.5 mg 02/10/20 18:30 02/14/20 07:23 Budesonide 0.5 Mg/2 Ml Neb NEB 0.5 mg BID-RT ABRAM Administration Ceftriaxone Sodium 2 gm/ 100 mls @ 200 mls/hr 02/03/20 14:00 02/14/20 12:33 Sodium Chloride IVPB 100 mls Q24HR ABRAM Administration Dextrose/Sodium Chloride 1,000 mls @ 50 mls/hr 02/10/20 08:45 02/14/20 14:24 D5 1/4 Ns IV 1,000 mls .Q20H ABRAM Administration Diltiazem HCl 125 mg/ 125 mls @ 10 mls/hr 02/12/20 12:30 02/14/20 08:44 Miscellaneous Medication 1 IVPB 125 mls each/ Sodium Chloride INF ABRAM Administration Protocol Insulin Human Lispro 0 units 01/31/20 23:37 02/14/20 00:20 Humalog 300 Units/3 Ml Vial SC 2 unit .MILD SLIDING SCALE PRN Administration Mild Correctional Scale Labetalol HCl 20 mg 01/31/20 23:35 02/11/20 10:12 Labetalol Hcl 100 Mg/20 Ml Vial SLOW IVP 20 mg Q4H PRN Administration SBP > 160 use third Nystatin 0 gm 02/02/20 09:00 02/14/20 08:50 Nystatin Powder 15 Gm Bot TOP 1 applic BID ABRAM Administration Ondansetron HCl 4 mg 01/31/20 23:35 02/07/20 21:48 Ondansetron Pf 4 Mg/2 Ml Vial IVP 4 mg Q6H PRN Administration Nausea/Vomiting use 1st Pantoprazole Sodium 40 mg 02/07/20 21:00 02/14/20 08:44 Pantoprazole 40 Mg Vial IVP 40 mg Q12HR ABRAM Administration Sodium Chloride 10 ml 02/07/20 12:15 02/10/20 08:35 Sodium Chloride 0.9% (Pf) 10 Ml Vial FS 10 ml PRN PRN Administration RECONSTITUTION - Exam General - other findings: Obese Eye: scleral icterus ENT: moist mucosa Neck: supple Heart - other findings: S1, S2, regular, tachycardic Respiratory: CTAB Gastrointestinal: soft, non-tender Psychiatric: normal affect, normal behavior Hosp A/P - Plan -Assessment (1) Acute respiratory failure with hypoxia Code(s): J96.01 - ACUTE RESPIRATORY FAILURE WITH HYPOXIA Status: Acute (2) E coli bacteremia Code(s): R78.81 - BACTEREMIA; B96.20 - UNSP ESCHERICHIA COLI THE CAUSE OF DISEASES CLASSD ELSWHR Status: Acute (3) Dysphagia Code(s): R13.10 - DYSPHAGIA, UNSPECIFIED Status: Acute (4) Cirrhosis Code(s): K74.60 - UNSPECIFIED CIRRHOSIS OF LIVER Status: Chronic Qualifiers: Hepatic cirrhosis type: alcoholic cirrhosis Ascites presence: with ascites Qualified Code(s): K70.31 - Alcoholic cirrhosis of liver with ascites Plan: Advanced cirrhosis, medical mgmt (5) Hypernatremia Code(s): E87.0 - HYPEROSMOLALITY AND HYPERNATREMIA Status: Acute (6) Acute kidney failure Status: Resolved (7) Septic shock Status: Resolved (8) hypotension Status: Resolved - Plan continue antibiotics, PT/OT, social media executive, speech therapy, respiratory therapy, DVT proph w/SCDs Patient has been started on Cardizem drip for A. fib with RVR. Continue ceftriaxone for E. coli bacteremia. NG tube feeds were held. Prognosis guarded.
--- NOTE | 2020-02-14 15:51 | PRG ---
DATE OF SERVICE: 02/14/2020 SUBJECTIVE: Mr. Cesar has no acute complaints. He has a Dobbhoff tube in place. He is undergoing evaluation by Speech Pathology. OBJECTIVE: VITAL SIGNS: Temperature 97.3, blood pressure 123/88, pulse has been in the 80s, but does spike to the 150 range intermittently. GENERAL: He is in no acute distress. He is awake and oriented. His eyes have no scleral icterus. LUNGS: Clear to auscultation bilaterally. HEART: Regular rate and rhythm without murmur. ABDOMEN: Soft, nontender, and nondistended. Bowel sounds are present. EXTREMITIES: No lower extremity edema. IMPRESSION: 1. Hepatic encephalopathy. This appears to have improved. 2. Oropharyngeal dysphagia. He has a Dobbhoff tube in place and is undergoing evaluation by Speech Pathology. 3. Alcoholic cirrhosis which has been decompensated, but his bilirubin appears to be trending down. 4. Chronic ulcerative colitis. This has been in clinical remission and he has been off Humira for the last 4 weeks now. RECOMMENDATIONS: 1. We will see how he does with the swallow evaluation today. 2. He is receiving antibiotics on ceftriaxone with admission with sepsis. Dr. Reynolds will cover for the GI service tomorrow. Job ID: [id number]
[2020-02-15 05:43] LABS: #Eosinphils 0.1 thou/uL (0.0-0.7); #Lymphocytes 0.7 thou/uL (1.20-3.40); #Monocytes 0.8 thou/uL (0.11-0.59); #Neutrophils 10.4 thou/uL (1.40-6.50); %Basophils 0.1 % (0.0-1.0); %Eosinophils 0.8 % (0.0-10.0); %Lymphocytes 5.8 % (21.0-51.0); %Neutrophils 86.3 % (42.0-75.0); Hemoglobin 9.4 g/dL (14.0-18.0); Mean Corpuscular HGB CONC 30.8 g/dL (32.0-36.0); Mean Corpuscular Hemoglobin 30.3 pg (27.0-31.0); Mean Corpuscular Volume 98.6 fL (78.0-98.0); Mean Platelet Volume 12.8 fL (7.4-10.4); Platelet Count 94 thou/uL (130-400); RBC Distribution Width 17.2 % (11.5-14.5); Red Blood Cell (RBC) Count 3.12 mill/uL (4.70-6.10)
[2020-02-15 06:00] LABS: ALT (SGPT) 57 U/L (8-55); AST (SGOT) 61 U/L (5-34); Albumin 2.6 g/dL (3.5-5.0); Alkaline Phosphatase 380 U/L (40-110); Anion Gap 10 mmol/L (10-20); BUN (Urea Nitrogen) 20 mg/dL (8.9-20.6); Bilirubin, Total 1.8 mg/dL (0.2-1.2); Calc. Creatinine Clearance 236 mL/min (70-130); Carbon Dioxide 29 mmol/L (22-29); Chloride 112 mmol/L (98-107); Estimated GFR-MDRD Greater than 90; Globulin 2.4 g/dL (2.4-3.5); Glucose 184 mg/dL (70-105); Potassium 3.6 mmol/L (3.5-5.1); Sodium 147 mmol/L (136-145)
[2020-02-15] MEDS: Budesonide 0.5 MG/2 ML NEB NEB SCH ×2 (07:29→22:16)
[2020-02-15] MEDS: D5 1/4 NS 1,000 ML IV SCH ×2 (07:50→20:05)
[2020-02-15] MEDS: Diltiazem HCl 125 MG, Admixture Fee 1 EACH in Sodium Chloride 0.9% 100 ML IVPB SCH ×2 (07:50→23:00)
[2020-02-15] MEDS: Nystatin Powder 15 GM BOT TOP SCH ×2 (07:51→20:12)
--- NOTE | 2020-02-15 08:04 | RAD ---
Exam: Chest one view HISTORY:Pneumonia Comparison: 02/14/2020 FINDINGS: Cardiac silhouette: Normal Aorta: Unremarkable Pulmonary vessels: Normal Costophrenic angles: Small bilateral effusions LUNGS: Diminished lung volumes, likely due to a poor inspiratory effort. Lines and tubes: Stable Dobbhoff tube and left-sided vascular catheter. Pneumothorax: None Osseous abnormalities: None IMPRESSION: No significant interval change.
--- NOTE | 2020-02-15 09:05 | PRG ---
DATE OF SERVICE: 02/15/2020 SUBJECTIVE: Mr. Cesar continues to struggle with ascites and liver decompensation. OBJECTIVE: VITAL SIGNS: Temperature 96.8, pulse 82, blood pressure 133/103, O2 saturation 94% on nasal cannula. HEENT: Remarkable for icteric sclerae. NECK: No JVD. LUNGS: Diminished breath sounds at bases. CARDIAC: S1 and S2, regular - on Cardizem drip. ABDOMEN: Massive ascites. EXTREMITIES: Edematous. LABORATORY DATA: White blood cell count 12, hematocrit 30, and platelet count 94. Sodium 147, potassium 3.6, chloride 112, CO2 of 29, BUN 20, creatinine 0.6, glucose 184, and total bilirubin 1.8. Chest x-ray shows low-lung volumes bilaterally secondary to his ascites. ASSESSMENT: 1. Cirrhosis of the liver. 2. Hepatic encephalopathy. 3. Massive ascites. RECOMMENDATIONS: I would recommend a large volume paracentesis to help with his breathing, not much more to add at this point. Job ID: [id number]
[2020-02-15] MEDS: Pantoprazole 40 MG VIAL IVP SCH ×2 (12:25→20:13)
--- NOTE | 2020-02-15 13:47 | PDOC.HOSPP ---
- Subjective Encounter Date: 02/15/20 Encounter Time: 11:20 Subjective: Patient seen for follow-up regarding respiratory failure. Awake, more alert, reports he did not sleep well. - Objective Vital Signs & Weight: Vital Signs (12 hours) Temp Pulse Pulse Pulse Resp BP BP 02/15/20 12:00 96.8 F L 02/15/20 09:52 104 H 86 127/93 H 140/59 L 02/15/20 08:00 02/15/20 07:58 96.8 F L 02/15/20 07:29 77 26 H 02/15/20 03:48 97.6 F Pulse Ox Pulse Ox Pulse Ox Pulse Ox 02/15/20 12:00 02/15/20 09:52 84 L 94 L 92 L 02/15/20 08:00 100 02/15/20 07:58 02/15/20 07:29 96 02/15/20 03:48 Weight Admit Weight 221 lb 9.033 oz Weight 222 lb 6.4 oz Most Recent Monitor Data Heart Rate from ECG 75 NIBP 131/89 NIBP BP-Mean 103 Respiration from ECG 27 SpO2 91 I&O: 02/14/20 02/15/20 02/16/20 06:59 06:59 06:59 Intake Total 2720 1470 30 Output Total 1000 1550 Balance 1720 -80 30 Result Diagrams: 02/15/20 05:07 02/15/20 05:07 Additional Labs: Accuchecks 02/15/20 02/15/20 02/15/20 12:32 05:14 00:26 POC Glucose 130 H 158 H 163 H I reviewed patient's labs and MAR EKG Reviewed by me: Yes (Normal sinus rhythm on telemetry) Hospitalist ROS - Review of Systems Gastrointestinal: denies: nausea, vomiting, abdominal pain, diarrhea, constipation, melena, hematochezia Genitourinary: denies: dysuria, frequency, incontinence, hematuria, retention - Medication Medications: Active Medications Generic Name Dose Route Start Last Admin Trade Name Freq PRN Reason Stop Dose Admin Budesonide 0.5 mg 02/10/20 18:30 02/15/20 07:29 Budesonide 0.5 Mg/2 Ml Neb NEB 0.5 mg BID-RT ABRAM Administration Ceftriaxone Sodium 2 gm/ 100 mls @ 200 mls/hr 02/03/20 14:00 02/14/20 12:33 Sodium Chloride IVPB 100 mls Q24HR ABRAM Administration Dextrose/Sodium Chloride 1,000 mls @ 50 mls/hr 02/10/20 08:45 02/15/20 07:50 D5 1/4 Ns IV 1,000 mls .Q20H ABRAM Administration Diltiazem HCl 125 mg/ 125 mls @ 10 mls/hr 02/12/20 12:30 02/15/20 07:50 Miscellaneous Medication 1 IVPB 125 mls each/ Sodium Chloride INF ABRAM Administration Protocol Insulin Human Lispro 0 units 01/31/20 23:37 02/14/20 00:20 Humalog 300 Units/3 Ml Vial SC 2 unit .MILD SLIDING SCALE PRN Administration Mild Correctional Scale Labetalol HCl 20 mg 01/31/20 23:35 02/11/20 10:12 Labetalol Hcl 100 Mg/20 Ml Vial SLOW IVP 20 mg Q4H PRN Administration SBP > 160 use third Nystatin 0 gm 02/02/20 09:00 02/15/20 07:51 Nystatin Powder 15 Gm Bot TOP 1 applic BID ABRAM Administration Ondansetron HCl 4 mg 01/31/20 23:35 02/07/20 21:48 Ondansetron Pf 4 Mg/2 Ml Vial IVP 4 mg Q6H PRN Administration Nausea/Vomiting use 1st Pantoprazole Sodium 40 mg 02/07/20 21:00 02/15/20 12:25 Pantoprazole 40 Mg Vial IVP 40 mg Q12HR ABRAM Administration Sodium Chloride 10 ml 02/07/20 12:15 02/10/20 08:35 Sodium Chloride 0.9% (Pf) 10 Ml Vial FS 10 ml PRN PRN Administration RECONSTITUTION - Exam General Appearance: ill appearing General - other findings: Obese Eye: scleral icterus ENT: no oropharyngeal lesions, moist mucosa Neck: symmetric, no lymphadenopathy Heart: RRR Respiratory: CTAB Gastrointestinal: soft, non-tender Extremities: 2+ LE edema Skin: no rashes Psychiatric: normal affect Hosp A/P - Plan -Assessment (1) Acute respiratory failure with hypoxia Code(s): J96.01 - ACUTE RESPIRATORY FAILURE WITH HYPOXIA Status: Acute (2) E coli bacteremia Code(s): R78.81 - BACTEREMIA; B96.20 - UNSP ESCHERICHIA COLI THE CAUSE OF DISEASES CLASSD ELSWHR Status: Acute (3) Dysphagia Code(s): R13.10 - DYSPHAGIA, UNSPECIFIED Status: Acute (4) Cirrhosis Code(s): K74.60 - UNSPECIFIED CIRRHOSIS OF LIVER Status: Chronic Qualifiers: Hepatic cirrhosis type: alcoholic cirrhosis Ascites presence: with ascites Qualified Code(s): K70.31 - Alcoholic cirrhosis of liver with ascites Plan: Advanced cirrhosis, medical mgmt (5) Hypernatremia Code(s): E87.0 - HYPEROSMOLALITY AND HYPERNATREMIA Status: Acute (6) Acute kidney failure Status: Resolved (7) Septic shock Status: Resolved (8) hypotension Status: Resolved - Plan continue antibiotics, PT/OT, social media manager, speech therapy, respiratory therapy, DVT proph w/SCDs Patient is on ceftriaxone for E. coli bacteremia. NG tube feeds were held. Prognosis guarded. Palliative care service following.
[2020-02-15 14:04] LABS: INR-International Normal Ratio 1.2; Prothrombin Time 15.1 sec (12.0-14.7)
[2020-02-15] MEDS: cefTRIAXone\\ROCEPHIN 2 GM in Sodium Chloride 0.9% 100 ML IVPB SCH (14:04)
--- NOTE | 2020-02-15 14:14 | PRG ---
DATE OF SERVICE: 02/15/2020 SUBJECTIVE: Mr. Cesar failed Speech Pathology evaluation yesterday, it is recommended for no oral intake at this point. He has some ongoing back pain as well as discomfort from abdominal distention and mild shortness of breath. He is tolerating the Dobbhoff tube feeds just fine. No nausea or vomiting. OBJECTIVE: VITAL SIGNS: Temperature 96.8, blood pressure 131/89, pulse rate 75, and 91% oxygen saturation on 2 L by nasal cannula. GENERAL: Chronically ill, no acute distress. HEART: Regular rate and rhythm. LUNGS: Bibasilar crackles. ABDOMEN: Distended with ascites, moderately tense. Bowel sounds are present. Some minimal tenderness to palpation throughout. EXTREMITIES: Trace pretibial edema bilaterally. LABORATORY STUDIES: Sodium 147, potassium 3.6, BUN 20, creatinine 0.61, glucose 130, total bilirubin 1.8, alkaline phosphatase 380, AST 61, ALT 57, albumin 2.6. WBC is 12.0, hemoglobin 9.4, and platelets are 94. INR 1.6. ASSESSMENT/PLAN: 1. Decompensated alcoholic cirrhosis. Bilirubin has been trending down slowly this admission, but he continues to struggle with ascites as well as encephalopathy. 2. Hepatic encephalopathy has improved. 3. Oropharyngeal dysphagia. The patient failed swallow evaluation by Speech Pathology. Dobbhoff tube is in place. The patient is not a candidate for PEG tube placement due to his ongoing ascites. Continue with Dobbhoff tube feeds, would recommend he continues to work with Speech Therapy, hopefully swallowing function will improve with better nutritional status. 4. Ascites. We will go ahead and arrange for repeat therapeutic paracentesis with Interventional Radiology. At some point, we will need to put the patient on oral diuretics. His kidney function has improved this admission. Consider starting diuretics tomorrow depending on swallowing function, renal function, etc. 5. Chronic ulcerative colitis. This has been in clinical remission and he has been off Humira for the last four weeks now. Job ID: [id number]
--- NOTE | 2020-02-15 14:41 | PDOC.PALPN ---
Palliative Progress Note - Subjective Alert, but appears fatigued and with mild confusion. Complains of abdominal pain, shortness of breath. Mother and sister to bedside. On Cardizem drip - Objective Vital Signs: Vital Signs - Most Recent Temp Pulse Resp BP Pulse Ox 96.8 F L 104 H 26 H 127/93 H 84 L 02/15/20 12:00 02/15/20 09:52 02/15/20 07:29 02/15/20 09:52 02/15/20 09:52 - Physical Exam Constitutional: confusion, ill appearing HEENT: EOMI, moist MMs, scleral icterus Respiratory: diminished lung sound Deviation from normal: mild labored respirations Cardiovascular: RRR Deviation from normal: Distended Genitourinary: calderon catheter Musculoskeletal: edema present, diffuse muscle atrophy Neurology: no focal deficits Skin: cap refill <2 seconds - Assessment (1) Acute respiratory failure with hypoxia Code(s): J96.01 - ACUTE RESPIRATORY FAILURE WITH HYPOXIA Current Visit: Yes Status: Acute (2) Hepatic encephalopathy Code(s): K72.90 - HEPATIC FAILURE, UNSPECIFIED WITHOUT COMA Current Visit: Yes Status: Acute (3) Sepsis Code(s): A41.9 - SEPSIS, UNSPECIFIED ORGANISM Current Visit: Yes Status: Acute Qualifiers: Sepsis type: Escherichia coli Sepsis acute organ dysfunction status: with acute organ dysfunction Severe sepsis acute organ dysfunction type: acute liver failure Severe sepsis shock status: with septic shock (4) Cirrhosis Code(s): K74.60 - UNSPECIFIED CIRRHOSIS OF LIVER Current Visit: Yes Status: Chronic Qualifiers: Hepatic cirrhosis type: alcoholic cirrhosis Ascites presence: with ascites Qualified Code(s): K70.31 - Alcoholic cirrhosis of liver with ascites (5) Coagulopathy Current Visit: Yes Status: Chronic (6) GI bleed Code(s): K92.2 - GASTROINTESTINAL HEMORRHAGE, UNSPECIFIED Current Visit: Yes Status: Deleted Qualifiers: GI bleed type/associated pathology: unspecified gastrointestinal hemorrhage type Qualified Code(s): K92.2 - Gastrointestinal hemorrhage, unspecified (7) Palliative care encounter Code(s): Z51.5 - ENCOUNTER FOR PALLIATIVE CARE Current Visit: No Status: Acute - Plan Plan: Continues to fail swallow study. Silvio and family hopeful for transition to inpatient physical rehab, however he is not able to tolerate PT at this time. Concern is also related to nutritional support. Silvio is failing swallow, however he is not currently a canidate for PEG placement. As Per GI plan for paracentesis to mitigate ascites and improve respiratory status. Will revisit Goal of Care, patient and family continue to hope for eventual transition to home setting, but his mother has expressed concern in relation to ability to care for him in an independent home setting. Will revisit consideration for placement in skilled setting. [35] minutes spent on this encounter with >50% of the time in counseling and coordination of care. - ROS Constitutional: weakness ENT: difficulty swallowing Respiratory: shortness of breath, other (weak cough) Cardiology: other (Negative for chest pain or palpitations) Gastrointestinal: abdominal pain Musculoskeletal: back pain
--- NOTE | 2020-02-15 16:59 | ULT ---
Sonographic guided paracentesis HISTORY: Symptomatic ascites. FINDINGS: After explaining the procedure and answering all questions, sonographic survey showed a lar ge amount of free fluid throughout the abdomen. Sterile technique, buffered local anesthesia, sonographic guidance, and a right lateral approach were used to carefully advance a 19-gauge Yueh needle and catheter into the free fluid. Catheter was left to drain a total volume of 4.0 L clear yellow liquid. Patient was limited to [address] foster because of report of hypotension after prior paracentesis. Catheter was removed with significant fluid remaining. Patient tolerated the procedure well. IMPRESSION : Technically successful sonographic guided paracentesis. 4.0 L.
[2020-02-15 22:48] LABS: Anion Gap 13 mmol/L (10-20); Carbon Dioxide 28 mmol/L (22-29); Chloride 110 mmol/L (98-107); Magnesium 1.2 mg/dL (1.6-2.6); Potassium 3.6 mmol/L (3.5-5.1); Sodium 147 mmol/L (136-145)
[2020-02-15] MEDS ORDERED: Electrolyte Replacement Protoc 1 EACH EACH FS SCH (23:00)
[2020-02-15] MEDS ORDERED: Magnesium Sulfate 4 GM in Sodium Chloride 0.9% 250 ML 250 ML IVPB SCH (23:00)
[2020-02-16 04:27] LABS: #Eosinphils 0.1 thou/uL (0.0-0.7); #Lymphocytes 0.6 thou/uL (1.20-3.40); #Monocytes 0.7 thou/uL (0.11-0.59); #Neutrophils 7.7 thou/uL (1.40-6.50); %Basophils 0.1 % (0.0-1.0); %Eosinophils 0.7 % (0.0-10.0); %Lymphocytes 6.8 % (21.0-51.0); %Monocytes 7.7 % (0.0-10.0); %Neutrophils 84.7 % (42.0-75.0); Mean Corpuscular HGB CONC 31.3 g/dL (32.0-36.0); Mean Corpuscular Hemoglobin 30.3 pg (27.0-31.0); Mean Corpuscular Volume 96.8 fL (78.0-98.0); Mean Platelet Volume 13.1 fL (7.4-10.4); Platelet Count 86 thou/uL (130-400); RBC Distribution Width 17.4 % (11.5-14.5); Red Blood Cell (RBC) Count 3.29 mill/uL (4.70-6.10); White Blood Cell (WBC) Count 9.1 thou/uL (4.8-10.8)
[2020-02-16 04:42] LABS: ALT (SGPT) 51 U/L (8-55); AST (SGOT) 53 U/L (5-34); Albumin 2.7 g/dL (3.5-5.0); Alkaline Phosphatase 389 U/L (40-110); Anion Gap 11 mmol/L (10-20); BUN (Urea Nitrogen) 14 mg/dL (8.9-20.6); Bilirubin, Total 1.9 mg/dL (0.2-1.2); Calc. Creatinine Clearance 275 mL/min (70-130); Carbon Dioxide 28 mmol/L (22-29); Chloride 109 mmol/L (98-107); Estimated GFR-MDRD Greater than 90; Globulin 2.3 g/dL (2.4-3.5); Glucose 187 mg/dL (70-105); Potassium 3.5 mmol/L (3.5-5.1); Sodium 144 mmol/L (136-145)
[2020-02-16] MEDS: HumaLOG 300 UNITS/3 ML VIAL SC PRN (06:42)
[2020-02-16] MEDS: Budesonide 0.5 MG/2 ML NEB NEB SCH ×2 (06:59→18:41)
--- NOTE | 2020-02-16 08:04 | PRG ---
DATE OF SERVICE: 02/15/2020 SUBJECTIVE: Mr. Cesar today looks much better than he did on previous days. His blood pressure is more stable. His heart rate is stable and has converted to sinus rhythm. OBJECTIVE: VITAL SIGNS: Blood pressure 150/95, pulse 82, temperature 97.8. LUNGS: Clear to auscultation. HEART: Regular rate and rhythm. ABDOMEN: Distended. EXTREMITIES: 2+ pitting edema. PERTINENT LABORATORY DATA: Hemoglobin 10, hematocrit 31.9. IMPRESSION: 1. Atrial fibrillation. 2. Cirrhosis. 3. Alcohol abuse. 4. Sepsis. RECOMMENDATIONS: Mr. Cesar appears to be back in sinus rhythm. We will discuss with GI on use of anticoagulation. He states he was on Eliquis prior to this most recent episode of sepsis. We will also recommend nadolol, which some beta-edmond properties to help in cirrhosis. Job ID: [id number]
--- NOTE | 2020-02-16 08:47 | RAD ---
PORTABLE CHEST: Date; 02/16/2020 HISTORY: Pneumonia follow-up. COMPARISON: 02/15/2020. FINDINGS: Poor inspiration on this semiupright exam. Bilateral effusions and bibasilar atelectasis. Upper lung bedoya remain clear. Cardiomegaly. IMPRESSION: Chest findings are stable from yesterday. POS: AGW
--- NOTE | 2020-02-16 10:02 | PRG ---
DATE OF SERVICE: 02/16/2020 SUBJECTIVE: The patient is currently on tube feeding and tolerating it. He complains of back pain and some leg numbness. There is no abdominal pain, nausea, vomiting. He appears to be alert and oriented this morning. PHYSICAL EXAMINATION: VITAL SIGNS: Temperature is 97.6, blood pressure 160/98, pulse of 83. GENERAL: He is alert, oriented to place and person. HEENT: Shows anicteric sclerae. Oropharynx is moist. CV: Shows normal S1 and S2. Regular rate and rhythm. CHEST: Shows breath sounds. ABDOMEN: Protuberant with ascites, but not tense. He has active bowel sounds. No tenderness. EXTREMITIES: Show no edema. LABORATORY DATA: Electrolytes within normal range. Creatinine 0.54, bilirubin 1.9, AST 53, ALT 51, and alkaline phosphatase 389. WBCs 9.1, hemoglobin 10.0, and platelet count of 86. ASSESSMENT: 1. Alcoholic cirrhosis, decompensated. 2. Ascites, status post paracentesis. 3. Hepatic encephalopathy, resolving. 4. Oropharyngeal dysphagia, currently on tube feeding. Not a present candidate for G-tube placement because of refractory ascites. 5. Chronic ulcerative colitis, in clinical remission. RECOMMENDATIONS: 1. I would like to restart diuretics with furosemide 40 mg daily and spironolactone 100 mg daily and follow his renal function closely if cleared by Speech Pathology to swallow medication. 2. Nadolol 40 mg daily if cleared by Speech Pathology to swallow medication. 3. I spoke with Dr. Kohli, given his many other conditions, comorbidities, I would favor not restart Eliquis at the present time for his atrial fibrillation. Job ID: [id number]
[2020-02-16] MEDS: Pantoprazole 40 MG VIAL IVP SCH ×2 (10:56→20:57)
[2020-02-16] MEDS: Nystatin Powder 15 GM BOT TOP SCH ×2 (10:56→20:57)
--- NOTE | 2020-02-16 11:03 | PRG ---
DATE OF SERVICE: 02/16/2020 SUBJECTIVE: He seems to be breathing easier since he got 4 L of fluid removed just about paracentesis. OBJECTIVE: VITAL SIGNS: Temperature 97.6, pulse 83, respirations 20, O2 saturation 92% on room air, and blood pressure 160/98. GENERAL: He is in no acute distress. HEENT: Unchanged. NECK: No JVD. LUNGS: Diminished breath sounds at bases. CARDIAC: S1 and S2. Regular. ABDOMEN: Somewhat distended, but less than yesterday. EXTREMITIES: Edematous throughout. LABORATORY DATA: White blood cell count 9.1, hematocrit 31.9, and platelet count 86. Sodium 144, potassium 3.5, chloride 109, CO2 of 28, BUN 14, creatinine 0.5, glucose 187, and total bilirubin 1.9. ASSESSMENT: 1. Status post respiratory failure, requiring mechanical ventilation. 2. Cirrhosis of the liver. 3. Ascites. PLAN: I would recommend intermittent therapeutic paracentesis as needed. No further pulmonary recommendations at this time available as needed. Please recall. Job ID: [id number]
--- NOTE | 2020-02-16 13:12 | CON ---
DATE OF CONSULTATION: 02/16/2020 Mr. Cesar's status is unchanged. He continues to remain in sinus rhythm. OBJECTIVE: VITAL SIGNS: Blood pressure 160/98, pulse 82, temp 97.6. LUNGS: Clear to auscultation. HEART: Regular rate and rhythm. ABDOMEN: Distended. EXTREMITIES: 2+ pitting edema. SKIN: Jaundiced. PERTINENT LABORATORY DATA: Hemoglobin 10.0, platelet count 86,000. INR 1.2. IMPRESSION: 1. Paroxysmal atrial fibrillation. 2. Cirrhosis. 3. Alcohol abuse. RECOMMENDATIONS: I had a long discussion with Mr. Cesar as well as his mother. We discussed the need for long-term anticoagulation therapy. His INR continues to wax and wane between 1.7 and 1.2. His platelet count also suggest thrombocytopenia and also has underlying mild anemia. I do feel long-term benefit from anticoagulation therapy has to be weighed his against risk of bleeding based on the above. I discussed risks and benefits of both. It was decided to proceed with conservative therapy and aspirin alone. I would also recommend low-dose nadolol to help for both rate control and in addition to his cirrhosis. Otherwise, I have no further recommendations. Okay from my standpoint to transfer to [facility]. Job ID: [id number]
--- NOTE | 2020-02-16 15:19 | RAD ---
EXAM: XR Abdomen 1 View/KUB PROVIDED CLINICAL HISTORY: Dobbhoff feeding tube placement COMPARISON: 02/11/2020 FINDINGS: The Dobbhoff feeding tube has been withdrawn with the tip now overlying the region of the body of the stomach. Bibasilar pleural and parenchymal lung changes are seen. IMPRESSION: Dobbhoff feeding tube noted in place. The tip of the feeding tube overlies the body of the stomach, a nd the tube should be advanced.
[2020-02-16] MEDS: cefTRIAXone\\ROCEPHIN 2 GM in Sodium Chloride 0.9% 100 ML IVPB SCH (15:42)
--- NOTE | 2020-02-16 15:53 | PDOC.HOSPP ---
- Subjective Encounter Date: 02/16/20 Encounter Time: 08:00 Subjective: Patient seen for follow-up for respiratory failure, hypoxic. Sleepy but arousable, not answering questions reliably, could not complete review of systems. - Objective Vital Signs & Weight: Vital Signs (12 hours) Temp Pulse Pulse Pulse Resp BP BP 02/16/20 15:45 98.0 F 86 20 02/16/20 12:45 97.8 F 84 24 H 02/16/20 10:00 81 85 158/96 H 157/102 H 02/16/20 09:03 97.6 F 83 22 H 02/16/20 07:03 02/16/20 06:59 85 16 02/16/20 05:00 97.3 F L 87 18 BP BP Pulse Ox Pulse Ox Pulse Ox 02/16/20 15:45 128/85 92 L 02/16/20 12:45 155/86 H 93 L 02/16/20 10:00 95 93 L 02/16/20 09:03 160/98 H 92 L 02/16/20 07:03 92 L 02/16/20 06:59 92 L 02/16/20 05:00 148/100 H 92 L Weight Admit Weight 221 lb 9.033 oz Weight 220 lb 14.4 oz Most Recent Monitor Data Heart Rate from ECG 82 NIBP 141/98 NIBP BP-Mean 112 Respiration from ECG 25 SpO2 95 I&O: 02/15/20 02/16/20 02/17/20 06:59 06:59 06:59 Intake Total 1470 1550 Output Total 1550 1350 800 Balance -80 200 -800 Result Diagrams: 02/16/20 04:04 02/16/20 04:04 Additional Labs: Accuchecks 02/16/20 02/16/20 02/15/20 05:24 00:05 18:57 POC Glucose 173 H 142 H 162 H Labs and MAR reviewed by me EKG Reviewed by me: Yes (Atrial fibrillation on telemetry) Hospitalist ROS - Review of Systems ROS unobtainable: due to mental status - Medication Medications: Active Medications Generic Name Dose Route Start Last Admin Trade Name Freq PRN Reason Stop Dose Admin Budesonide 0.5 mg 02/10/20 18:30 02/16/20 06:59 Budesonide 0.5 Mg/2 Ml Neb NEB 0.5 mg BID-RT ABRAM Administration Ceftriaxone Sodium 2 gm/ 100 mls @ 200 mls/hr 02/03/20 14:00 02/16/20 15:42 Sodium Chloride IVPB 100 mls Q24HR ABRAM Administration Dextrose/Sodium Chloride 1,000 mls @ 50 mls/hr 02/10/20 08:45 02/15/20 20:05 D5 1/4 Ns IV 1,000 mls .Q20H ABRAM Administration Diltiazem HCl 125 mg/ 125 mls @ 10 mls/hr 02/12/20 12:30 02/15/20 23:00 Miscellaneous Medication 1 IVPB 125 mls each/ Sodium Chloride INF ABRAM Administration Protocol Insulin Human Lispro 0 units 01/31/20 23:37 02/16/20 06:42 Humalog 300 Units/3 Ml Vial SC 2 unit .MILD SLIDING SCALE PRN Administration Mild Correctional Scale Labetalol HCl 20 mg 01/31/20 23:35 02/11/20 10:12 Labetalol Hcl 100 Mg/20 Ml Vial SLOW IVP 20 mg Q4H PRN Administration SBP > 160 use third Nystatin 0 gm 02/02/20 09:00 02/16/20 10:56 Nystatin Powder 15 Gm Bot TOP 1 applic BID ABRAM Administration Ondansetron HCl 4 mg 01/31/20 23:35 02/07/20 21:48 Ondansetron Pf 4 Mg/2 Ml Vial IVP 4 mg Q6H PRN Administration Nausea/Vomiting use 1st Pantoprazole Sodium 40 mg 02/07/20 21:00 02/16/20 10:56 Pantoprazole 40 Mg Vial IVP 40 mg Q12HR ABRAM Administration Sodium Chloride 10 ml 02/07/20 12:15 02/10/20 08:35 Sodium Chloride 0.9% (Pf) 10 Ml Vial FS 10 ml PRN PRN Administration RECONSTITUTION Sodium Chloride 10 ml 02/16/20 09:00 02/16/20 10:57 Flush - Normal Saline 10 Ml Syringe IVF 10 ml Q12HR ABRAM Administration - Exam General - other findings: Obese Eye: scleral icterus ENT: moist mucosa Neck: supple Heart: irregular Respiratory: CTAB Gastrointestinal: soft, non-tender, distended Extremities: 2+ LE edema Skin: no rashes Psychiatric - other findings: Unable to assess Hosp A/P - Plan -Assessment (1) Acute respiratory failure with hypoxia Code(s): J96.01 - ACUTE RESPIRATORY FAILURE WITH HYPOXIA Status: Acute (2) E coli bacteremia Code(s): R78.81 - BACTEREMIA; B96.20 - UNSP ESCHERICHIA COLI THE CAUSE OF DISEASES CLASSD ELSWHR Status: Acute (3) Dysphagia Code(s): R13.10 - DYSPHAGIA, UNSPECIFIED Status: Acute (4) Cirrhosis Code(s): K74.60 - UNSPECIFIED CIRRHOSIS OF LIVER Status: Chronic Qualifiers: Hepatic cirrhosis type: alcoholic cirrhosis Ascites presence: with ascites Qualified Code(s): K70.31 - Alcoholic cirrhosis of liver with ascites Plan: Advanced cirrhosis, medical mgmt (5) Hypernatremia Code(s): E87.0 - HYPEROSMOLALITY AND HYPERNATREMIA Status: Acute (6) Acute kidney failure Status: Resolved (7) Septic shock Status: Resolved (8) hypotension Status: Resolved - Plan continue antibiotics, PT/OT, social services counselor, speech therapy, respiratory therapy, DVT proph w/SCDs Continue ceftriaxone for E. coli bacteremia. Dobbhoff tube feeds to be restarted today. Prognosis guarded. Palliative care service following.
--- NOTE | 2020-02-16 16:21 | PDOC.PALPN ---
Palliative Progress Note - Subjective Silvio had pulled out his Dobhoff, replaced and verified with radiology. Continues to remain on Cardizem drip. Unable to tolerate PO intake as he failed the swallow study. Confused, unable to participate in conversation reliably, drifts off to sleep. Sat on side of bed with two person assist for a 1-2 minutes and became fatigued needing to lay down. Mother at bedside. - Objective Vital Signs: Vital Signs - Most Recent Temp Pulse Resp BP Pulse Ox 98.0 F 86 20 128/85 92 L 02/16/20 15:45 02/16/20 15:45 02/16/20 15:45 02/16/20 15:45 02/16/20 15:45 - Physical Exam Constitutional: confusion, encephalitic, ill appearing HEENT: EOMI, moist MMs, scleral icterus Respiratory: clear to auscultation bilateral, no rhonchi, no wheezing, diminishe d lung sound Cardiovascular: irregular Gastrointestinal: soft, non-tender Deviation from normal: Distended Genitourinary: calderon catheter Musculoskeletal: no cyanosis, no clubbing, diffuse muscle atrophy Neurology: moves all 4 limbs, no focal deficits Skin: cap refill <2 seconds Deviation from normal: minimally icteric Psychiatric: flat affect Deviation from normal: Alert to self, had to be reoriented to location and time. - Assessment (1) Acute respiratory failure with hypoxia Code(s): J96.01 - ACUTE RESPIRATORY FAILURE WITH HYPOXIA Current Visit: Yes Status: Acute (2) Hepatic encephalopathy Code(s): K72.90 - HEPATIC FAILURE, UNSPECIFIED WITHOUT COMA Current Visit: Yes Status: Acute (3) Sepsis Code(s): A41.9 - SEPSIS, UNSPECIFIED ORGANISM Current Visit: Yes Status: Acute Qualifiers: Sepsis type: Escherichia coli Sepsis acute organ dysfunction status: with acute organ dysfunction Severe sepsis acute organ dysfunction type: acute liver failure Severe sepsis shock status: with septic shock (4) Cirrhosis Code(s): K74.60 - UNSPECIFIED CIRRHOSIS OF LIVER Current Visit: Yes Status: Chronic Qualifiers: Hepatic cirrhosis type: alcoholic cirrhosis Ascites presence: with ascites Qualified Code(s): K70.31 - Alcoholic cirrhosis of liver with ascites (5) Coagulopathy Current Visit: Yes Status: Chronic (6) Palliative care encounter Code(s): Z51.5 - ENCOUNTER FOR PALLIATIVE CARE Current Visit: No Status: Acute - Plan Plan: Patient mother inquired about a bioartificial liver for Silvio. Discussed need to continue to work towards rehabilitation. Discussed consideration of placement in Swing bed in [place], she asked about [facility], uncertain if they would accept. Her hesitation of transition to Swing bed at [place] is if GI physicians see patients at [place]. It is assumed he is not a candidate for inpatient rehab, but that a strong consideration be given to swing bed. Inquired with Dr Reynolds consideration for Plurex drain if GI does not service [place] to manage symptom of chronic ascites as well as if they cover [place]. Communicated with Dr Ford. [45] minutes spent on this encounter with >50% of the time in counseling and coordination of care. - ROS Non Response: due to mental status
--- NOTE | 2020-02-16 20:54 | RAD ---
KUB INDICATION: Dobbhoff feeding tube placement. COMPARISON: Prior exam performed earlier at 3:06 PM on February 16, 2020 FINDINGS: Bowel gas: Unchanged. Dobbhoff feeding tube tip is seen now in the region of the gastric body. Lung bases: Unchanged Additional findings: No suspicious calcification demonstrated. Osseous structures: No acute osseous abnormality is demonstrated. IMPRESSION: 1. Dobbhoff feeding tube tip seen in the region of the gastric body.
[2020-02-16] MEDS: Sodium Chloride 0.9% (PF) 10 ML VIAL FS PRN (20:56)
[2020-02-16] MEDS: D5 1/4 NS 1,000 ML IV SCH (20:58)
[2020-02-17 04:41] LABS: #Eosinphils 0.1 thou/uL (0.0-0.7); #Lymphocytes 0.9 thou/uL (1.20-3.40); #Neutrophils 8.4 thou/uL (1.40-6.50); %Basophils 0.3 % (0.0-1.0); %Eosinophils 1.1 % (0.0-10.0); %Lymphocytes 8.7 % (21.0-51.0); %Monocytes 9.2 % (0.0-10.0); %Neutrophils 80.8 % (42.0-75.0); Hemoglobin 10.9 g/dL (14.0-18.0); Mean Corpuscular HGB CONC 31.7 g/dL (32.0-36.0); Mean Corpuscular Hemoglobin 30.8 pg (27.0-31.0); Mean Corpuscular Volume 97.3 fL (78.0-98.0); Mean Platelet Volume 13.2 fL (7.4-10.4); Platelet Count 85 thou/uL (130-400); RBC Distribution Width 17.6 % (11.5-14.5); Red Blood Cell (RBC) Count 3.53 mill/uL (4.70-6.10); White Blood Cell (WBC) Count 10.4 thou/uL (4.8-10.8)
[2020-02-17 05:11] LABS: ALT (SGPT) 45 U/L (8-55); AST (SGOT) 53 U/L (5-34); Albumin 2.5 g/dL (3.5-5.0); Alkaline Phosphatase 351 U/L (40-110); Anion Gap 14 mmol/L (10-20); BUN (Urea Nitrogen) 11 mg/dL (8.9-20.6); Bilirubin, Total 1.9 mg/dL (0.2-1.2); Calc. Creatinine Clearance 296 mL/min (70-130); Calcium 8.1 mg/dL (7.8-10.44); Carbon Dioxide 24 mmol/L (22-29); Chloride 110 mmol/L (98-107); Estimated GFR-MDRD Greater than 90; Globulin 2.5 g/dL (2.4-3.5); Glucose 159 mg/dL (70-105); Potassium 4.1 mmol/L (3.5-5.1); Sodium 144 mmol/L (136-145)
[2020-02-17] MEDS: Budesonide 0.5 MG/2 ML NEB NEB SCH ×2 (07:09→18:39)
--- NOTE | 2020-02-17 08:21 | RAD ---
EXAM: CHEST ONE VIEW HISTORY: Pneumonia COMPARISON: 02/16/2020 FINDINGS: Dobbhoff feeding tube remains in place with distal portion overlying the body of the stomach. Left-si ded vascular catheter remains in place. This examination is obtained in a shallow depth of inspiration which accentuates the cardiac silhouette and bronchovascular markings, but the cardiac si lhouette does appear in enlarged. Bronchovascular markings are accentuated due to the depth of inspiration and portable technique. There are bilateral pleural effusions and associated volume loss which is similar to the prior exam.. No other interval change. IMPRESSION: 1. Dobbhoff feeding tube noted in place with distal portion overlying the body of the stomach. 2. Chest is overall stable.
[2020-02-17] MEDS: Spironolactone 100 MG TAB PO SCH (08:25)
[2020-02-17] MEDS: Furosemide 40 MG/4 ML VIAL SLOW IVP SCH (08:25)
[2020-02-17] MEDS: Pantoprazole 40 MG VIAL IVP SCH ×2 (08:25→21:16)
[2020-02-17] MEDS: Nystatin Powder 15 GM BOT TOP SCH ×2 (08:27→21:16)
--- NOTE | 2020-02-17 09:41 | PRG ---
DATE OF SERVICE: 02/17/2020 SUBJECTIVE: Mr. Cesar's status is unchanged. He remains somnolent. No current complaints. He remains in sinus rhythm. OBJECTIVE: VITAL SIGNS: Blood pressure 123/87, pulse 80, temperature 98. LUNGS: Clear to auscultation. HEART: Regular rate and rhythm. ABDOMEN: Soft, nontender, nondistended. IMPRESSION: 1. Paroxysmal atrial fibrillation. 2. Cirrhosis. 3. Ascites. 4. Thrombocytopenia. 5. Anemia. RECOMMENDATIONS: 1. Mr. Cesar appears to be in sinus rhythm. Again, please refer to my previous note about recommendation on anticoagulation therapy. 2. We will recommend full-dose aspirin, but avoid anticoagulation treatment due to previously documented conversation with patient and mother. Nadolol has been instituted. His rate appears to be controlled. 3. Otherwise, I have no further recommendations. We will follow peripherally. Okay to transfer to medical if further . Job ID: [id number]
[2020-02-17] MEDS: Nadolol 40 MG TAB PO SCH (10:18)
--- NOTE | 2020-02-17 13:37 | PDOC.HOSPP ---
- Subjective Encounter Date: 02/17/20 Encounter Time: 08:00 Subjective: Patient seen in follow-up regarding acute hypoxic respiratory failure. Denies chest pain. - Objective Vital Signs & Weight: Vital Signs (12 hours) Temp Pulse Resp BP Pulse Ox 02/17/20 11:59 98.1 F 63 23 H 122/64 100 02/17/20 07:54 98.0 F 80 16 123/87 94 L 02/17/20 07:16 96 Weight Admit Weight 221 lb 9.033 oz Weight 220 lb 14.38 oz Most Recent Monitor Data Heart Rate from ECG 82 NIBP 141/98 NIBP BP-Mean 112 Respiration from ECG 25 SpO2 95 I&O: 02/16/20 02/17/20 02/18/20 06:59 06:59 06:59 Intake Total 1550 1220 Output Total 1350 3500 Balance 200 -2280 Result Diagrams: 02/17/20 04:22 02/17/20 04:22 Additional Labs: Accuchecks 02/17/20 02/17/20 02/17/20 12:03 06:09 04:05 POC Glucose 125 H 143 H 142 H 02/17/20 02/16/20 03:56 21:54 POC Glucose 143 H 102 H I reviewed patient's labs and MAR EKG Reviewed by me: Yes (Dheeraj jarrett on telemetry) Hospitalist ROS - Review of Systems Cardiovascular: denies: chest pain, palpitations, orthopnea, paroxysmal noc. dyspnea, edema, light headedness Gastrointestinal: denies: nausea, vomiting, abdominal pain, diarrhea, constipation, melena, hematochezia - Medication Medications: Active Medications Generic Name Dose Route Start Last Admin Trade Name Freq PRN Reason Stop Dose Admin Budesonide 0.5 mg 02/10/20 18:30 02/17/20 07:09 Budesonide 0.5 Mg/2 Ml Neb NEB 0.5 mg BID-RT ABRAM Administration Furosemide 40 mg 02/17/20 09:00 02/17/20 08:25 Furosemide 40 Mg/4 Ml Vial SLOW IVP 40 mg DAILY ABRAM Administration Ceftriaxone Sodium 2 gm/ 100 mls @ 200 mls/hr 02/03/20 14:00 02/16/20 15:42 Sodium Chloride IVPB 100 mls Q24HR ABRAM Administration Dextrose/Sodium Chloride 1,000 mls @ 50 mls/hr 02/10/20 08:45 02/16/20 20:58 D5 1/4 Ns IV 1,000 mls .Q20H ABRAM Administration Insulin Human Lispro 0 units 01/31/20 23:37 02/16/20 06:42 Humalog 300 Units/3 Ml Vial SC 2 unit .MILD SLIDING SCALE PRN Administration Mild Correctional Scale Labetalol HCl 20 mg 01/31/20 23:35 02/11/20 10:12 Labetalol Hcl 100 Mg/20 Ml Vial SLOW IVP 20 mg Q4H PRN Administration SBP > 160 use third Nadolol 40 mg 02/17/20 09:00 02/17/20 10:18 Nadolol 40 Mg Tab PO 40 mg DAILY ABRAM Administration Nystatin 0 gm 02/02/20 09:00 02/17/20 08:27 Nystatin Powder 15 Gm Bot TOP 1 applic BID ABRAM Administration Ondansetron HCl 4 mg 01/31/20 23:35 02/07/20 21:48 Ondansetron Pf 4 Mg/2 Ml Vial IVP 4 mg Q6H PRN Administration Nausea/Vomiting use 1st Pantoprazole Sodium 40 mg 02/07/20 21:00 02/17/20 08:25 Pantoprazole 40 Mg Vial IVP 40 mg Q12HR ABRAM Administration Sodium Chloride 10 ml 02/07/20 12:15 02/16/20 20:56 Sodium Chloride 0.9% (Pf) 10 Ml Vial FS 10 ml PRN PRN Administration RECONSTITUTION Sodium Chloride 10 ml 02/16/20 09:00 02/17/20 08:27 Flush - Normal Saline 10 Ml Syringe IVF Not Given Q12HR ABRAM Spironolactone 100 mg 02/17/20 08:00 02/17/20 08:25 Spironolactone 100 Mg Tab PO 100 mg QAM-WM ABRAM Administration - Exam General Appearance: awake alert Eye: scleral icterus ENT: moist mucosa Neck: supple Heart: irregular Respiratory: CTAB Gastrointestinal: soft, non-tender Extremities: 2+ LE edema Psychiatric: normal affect, normal behavior Hosp A/P - Plan -Assessment (1) Acute respiratory failure with hypoxia Code(s): J96.01 - ACUTE RESPIRATORY FAILURE WITH HYPOXIA Status: Acute (2) E coli bacteremia Code(s): R78.81 - BACTEREMIA; B96.20 - UNSP ESCHERICHIA COLI THE CAUSE OF DISEASES CLASSD ELSWHR Status: Acute (3) Dysphagia Code(s): R13.10 - DYSPHAGIA, UNSPECIFIED Status: Acute (4) Cirrhosis Code(s): K74.60 - UNSPECIFIED CIRRHOSIS OF LIVER Status: Chronic Qualifiers: Hepatic cirrhosis type: alcoholic cirrhosis Ascites presence: with ascites Qualified Code(s): K70.31 - Alcoholic cirrhosis of liver with ascites Plan: Advanced cirrhosis, medical mgmt (5) Hypernatremia Code(s): E87.0 - HYPEROSMOLALITY AND HYPERNATREMIA Status: Acute (6) Acute kidney failure Status: Resolved (7) Septic shock Status: Resolved (8) hypotension Status: Resolved - Plan continue antibiotics, PT/OT, social insurance specialist, speech therapy, respiratory therapy, DVT proph w/SCDs Cardizem drip has been turned off secondary to bradycardia. Patient is on ceftriaxone for E. coli bacteremia. Continue Dobbhoff tube feeds. Prognosis guarded. Palliative care service following.
[2020-02-17] MEDS: cefTRIAXone\\ROCEPHIN 2 GM in Sodium Chloride 0.9% 100 ML IVPB SCH (13:49)
[2020-02-17] MEDS: D5 1/4 NS 1,000 ML IV SCH (14:14)
--- NOTE | 2020-02-17 14:22 | PDOC.PALPN ---
Palliative Progress Note - Subjective Continued confusion. Dobhoff remains in place, calderon, Cardizem drip was stopped. Continues with pronounced weakness and dysphagia. - Objective Vital Signs: Vital Signs - Most Recent Temp Pulse Resp BP Pulse Ox 98.1 F 63 23 H 122/64 100 02/17/20 11:59 02/17/20 11:59 02/17/20 11:59 02/17/20 11:59 02/17/20 11:59 - Physical Exam Constitutional: confusion, encephalitic, ill appearing HEENT: EOMI, moist MMs Respiratory: unlabored breathing, diminished lung sound Deviation from normal: Weak wet non productive cough Cardiovascular: irregular Gastrointestinal: soft, non-tender Deviation from normal: Distended Genitourinary: calderon catheter Musculoskeletal: edema present, diffuse muscle atrophy Neurology: no focal deficits Skin: cap refill <2 seconds Deviation from normal: Confused, encephalopathic - Assessment (1) Acute respiratory failure with hypoxia Code(s): J96.01 - ACUTE RESPIRATORY FAILURE WITH HYPOXIA Current Visit: Yes Status: Acute (2) Hepatic encephalopathy Code(s): K72.90 - HEPATIC FAILURE, UNSPECIFIED WITHOUT COMA Current Visit: Yes Status: Acute (3) Sepsis Code(s): A41.9 - SEPSIS, UNSPECIFIED ORGANISM Current Visit: Yes Status: Acute Qualifiers: Sepsis type: Escherichia coli Sepsis acute organ dysfunction status: with acute organ dysfunction Severe sepsis acute organ dysfunction type: acute liver failure Severe sepsis shock status: with septic shock (4) Cirrhosis Code(s): K74.60 - UNSPECIFIED CIRRHOSIS OF LIVER Current Visit: Yes Status: Chronic Qualifiers: Hepatic cirrhosis type: alcoholic cirrhosis Ascites presence: with ascites Qualified Code(s): K70.31 - Alcoholic cirrhosis of liver with ascites (5) Coagulopathy Current Visit: Yes Status: Chronic (6) Palliative care encounter Code(s): Z51.5 - ENCOUNTER FOR PALLIATIVE CARE Current Visit: No Status: Acute - Plan Plan: Patient not decisional. Mother is hopeful for Silvio to gain strength at a skilled setting with ultimately transitioning to the home setting under hospice care. Consideration for plurex drain to mitigate symptom of ascities when patient transitions to home setting. Mother verbalizes understanding of risk of infection verses management of ascities. Communicated with Dr Ford Emotional Support Therapeutic listening. Please also refer to Palliative Care notes in note section. [35] minutes spent on this encounter with >50% of the time in counseling and coordination of care. - ROS Non Response: due to mental status
[2020-02-17 23:28] LABS: Actual Bicarbonate (HCO3a) 33.3 mEq/L (22-28); Calcium, Ionized (arterial) 1.19 mmol/L (1.12-1.30); Carboxyhemoglobin (COHb) 0.6 gm% (0.0-3.0); Hemoglobin (Hb) 10.9 g/dL (14.0-18.0); Potassium - ABG Lab 3.94 mmol/L (3.70-5.30); pH, Arterial 7.29 (7.35-7.45)
[2020-02-17 23:31] LABS: CO2 Tension 71.1 mmHg (35.0-45.0)
[2020-02-17 23:32] LABS: ALV-art Gradient 581.125 mmHg (0-20); Puncture Site LBA
[2020-02-17] MEDS ORDERED: Furosemide 40 MG/4 ML VIAL ONE (23:33)
--- NOTE | 2020-02-17 23:37 | RAD ---
Chest AP view INDICATION: Code Green COMPARISON: Prior exam dated February 17, 2020 4:29 AM FINDINGS: Lungs: There is worsening opacity the right lung base suspicious for worsening atelectasis Cardiac silhouette: There is stable moderate cardiomegaly Pulmonary vasculature: There is moderate pulmonary vascular congestion Pleural spaces: There is increasing small right and tiny left pleural effusion Upper abdomen: Dobbhoff feeding tube tip is seen in the region of the gastric body. Osseous structures: No acute osseous abnormality. Additional findings: Left subclavian central venous catheter is unchanged. IMPRESSION: Worsening CHF or volume overload.
--- NOTE | 2020-02-17 23:50 | PDOC.EVN ---
Event Note - Event Note Event Note: Code green, see code green note, Patient was Bradycardic HR 20-30s on tele monitor, tachypneic and hypoxic. Ordered CXR, ABG, basic labs. Gave lasix 40mg IVP x 1 dose. Transfer to [facility] for NIPPV. Discussed with Dr. Rosalie Carranza.
[2020-02-17 23:53] LABS: #Basophils 0.1 thou/uL (0.0-0.2); #Eosinphils 0.1 thou/uL (0.0-0.7); #Lymphocytes 1.1 thou/uL (1.20-3.40); #Monocytes 1.1 thou/uL (0.11-0.59); %Basophils 0.4 % (0.0-1.0); %Eosinophils 0.9 % (0.0-10.0); %Monocytes 8.8 % (0.0-10.0); %Neutrophils 80.9 % (42.0-75.0); Hemoglobin 10.2 g/dL (14.0-18.0); Mean Corpuscular HGB CONC 31.3 g/dL (32.0-36.0); Mean Corpuscular Hemoglobin 30.7 pg (27.0-31.0); Mean Corpuscular Volume 98.2 fL (78.0-98.0); Mean Platelet Volume 13.1 fL (7.4-10.4); Platelet Count 115 thou/uL (130-400); RBC Distribution Width 17.6 % (11.5-14.5); Red Blood Cell (RBC) Count 3.31 mill/uL (4.70-6.10); White Blood Cell (WBC) Count 12.3 thou/uL (4.8-10.8)
[2020-02-18 00:08] LABS: ALT (SGPT) 43 U/L (8-55); AST (SGOT) 50 U/L (5-34); Albumin 2.7 g/dL (3.5-5.0); Alkaline Phosphatase 360 U/L (40-110); Anion Gap 10 mmol/L (10-20); BUN (Urea Nitrogen) 13 mg/dL (8.9-20.6); Bilirubin, Total 1.4 mg/dL (0.2-1.2); Calc. Creatinine Clearance 249 mL/min (70-130); Calcium 8.1 mg/dL (7.8-10.44); Carbon Dioxide 31 mmol/L (22-29); Chloride 107 mmol/L (98-107); Estimated GFR-MDRD Greater than 90; Globulin 2.5 g/dL (2.4-3.5); Glucose 157 mg/dL (70-105); Magnesium 1.3 mg/dL (1.6-2.6); Potassium 3.9 mmol/L (3.5-5.1); Protein, Total 5.2 g/dL (6.0-8.3); Sodium 144 mmol/L (136-145)
[2020-02-18 00:11] LABS: Troponin I 0.011 ng/mL (< 0.028)
--- NOTE | 2020-02-18 00:30 | PRG ---
DATE OF SERVICE: 02/17/2020 SUBJECTIVE: Mr. Cesar had a bradycardic episode and ayush miles called this evening. He had decreased mental acuity with that and hypoxemia with blood gas showing pO2 of 43 and pCO2 of 71, and pH is 7.29. Chest x-ray showed some pulmonary congestion. OBJECTIVE: VITAL SIGNS: Temperature 98.1, pulse 67, and blood pressure 112/71. LUNGS: Clear anteriorly. HEART: Regular rate and rhythm. ABDOMEN: Soft, nontender, and nondistended. Bowel sounds are present. EXTREMITIES: 1+ lower extremity edema. IMPRESSION: 1. Respiratory failure with acidosis and CO2 retention and hypoxemia. 2. Alcoholic cirrhosis. 3. Paroxysmal atrial fibrillation. 4. Oropharyngeal dysphagia, requiring Dobbhoff tube. 5. Ulcerative colitis in remission by previous endoscopy, off immunosuppressives over the last month. 6. DNR status. RECOMMENDATIONS: 1. He is transferring to [facility] for BiPAP. He is a do not intubate status, do not resuscitate otherwise. 2. He is on diuretics. 3. Consider reducing his beta-edmond at this point. Job ID: [id number]
[2020-02-18] MEDS ORDERED: Magnesium 2 GM/50 ML 2 GM in Premix Bag 1 BAG IVPB SCH ×2 (01:00→09:15)
[2020-02-18 08:40] LABS: ALT (SGPT) 35 U/L (8-55); AST (SGOT) 45 U/L (5-34); Albumin 2.5 g/dL (3.5-5.0); Alkaline Phosphatase 326 U/L (40-110); Anion Gap 10 mmol/L (10-20); BUN (Urea Nitrogen) 15 mg/dL (8.9-20.6); Bilirubin, Total 1.4 mg/dL (0.2-1.2); Calc. Creatinine Clearance 249 mL/min (70-130); Calcium 8.1 mg/dL (7.8-10.44); Carbon Dioxide 33 mmol/L (22-29); Chloride 106 mmol/L (98-107); Estimated GFR-MDRD Greater than 90; Globulin 2.4 g/dL (2.4-3.5); Glucose 90 mg/dL (70-105); Magnesium 1.6 mg/dL (1.6-2.6); Protein, Total 4.9 g/dL (6.0-8.3); Sodium 145 mmol/L (136-145)
[2020-02-18 08:42] LABS: #Eosinphils 0.1 thou/uL (0.0-0.7); #Lymphocytes 0.8 thou/uL (1.20-3.40); #Monocytes 0.6 thou/uL (0.11-0.59); %Basophils 0.4 % (0.0-1.0); %Eosinophils 1.3 % (0.0-10.0); %Lymphocytes 9.5 % (21.0-51.0); %Monocytes 7.3 % (0.0-10.0); %Neutrophils 81.4 % (42.0-75.0); Hemoglobin 9.7 g/dL (14.0-18.0); Mean Corpuscular HGB CONC 30.9 g/dL (32.0-36.0); Mean Corpuscular Hemoglobin 30.7 pg (27.0-31.0); Mean Corpuscular Volume 99.4 fL (78.0-98.0); Mean Platelet Volume 12.9 fL (7.4-10.4); Platelet Count 92 thou/uL (130-400); RBC Distribution Width 17.5 % (11.5-14.5); Red Blood Cell (RBC) Count 3.15 mill/uL (4.70-6.10); White Blood Cell (WBC) Count 8.6 thou/uL (4.8-10.8)
--- NOTE | 2020-02-18 08:42 | RAD ---
CHEST 1 VIEW: HISTORY: Pneumonia. COMPARISON: Radiograph prior day. FINDINGS: Wiehgt tube tip below the diaphragm out of the field of view. Large effusions. Compressive atelecta sis throughout both lung bases. Left subclavian central venous catheter tip projects over the mid SVC. No acute osseous abnormality. IMPRESSION: Similar examination of the chest with a basilar location of the pleural effusion different than the l ayering as seen on prior day. POS: HOME
--- NOTE | 2020-02-18 09:48 | PRG ---
DATE OF SERVICE: 02/18/2020 SUBJECTIVE: Mr. Cesar was moved back to the [facility] last night to be placed on BiPAP. He developed bradycardia and hypoxemia. It should be noted that he is a DNR. OBJECTIVE: VITAL SIGNS: His temperature 97.4, pulse 69, blood pressure 94/66, O2 saturation 100% on BiPAP at 80%. HEENT: Unchanged. NECK: No JVD. LUNGS: Diminished breath sounds at bases. CARDIAC: S1 and S2. Regular. ABDOMEN: Distended with ascites. EXTREMITIES: No edema. LABORATORY DATA: White blood cell count 8.6, hematocrit 31.4, and platelet count 92. Sodium 145, potassium 4, chloride 106, CO2 of 33, BUN 15, creatinine 0.5, and glucose 90. ASSESSMENT: 1. End-stage cirrhosis. 2. Ascites. 3. Kshne-[id number] respiratory failure. 4. Paroxysmal atrial fibrillation. PLAN: This gentleman's chances of survival are almost zero. In my opinion, he should be placed on hospice care as the current care that he is getting is not going to extend his life. He has refractory ascites, which reaccumulates quickly and causes diaphragmatic elevation, makes him hard to breathe. I also think he has significant hepatopulmonary shunting due to his liver disease. I really think that the primary team needs to push for a hospice referral and stop this futile treatment. Job ID: [id number]
[2020-02-18] MEDS: Furosemide 40 MG/4 ML VIAL SLOW IVP SCH (10:51)
[2020-02-18] MEDS: Pantoprazole 40 MG VIAL IVP SCH ×2 (10:51→23:51)
[2020-02-18] MEDS: Nystatin Powder 15 GM BOT TOP SCH ×2 (10:52→23:51)
[2020-02-18] MEDS ORDERED: Fentanyl 100 MCG/2 ML VIAL ONE (10:58)
[2020-02-18] MEDS ORDERED: Midazolam HCl 2 mg/2 ml Vial ONE (10:58)
[2020-02-18] MEDS ORDERED: Sodium Bicarbonate 2.5 MEQ/5 ML VIAL ONE (10:58)
[2020-02-18] MEDS: Budesonide 0.5 MG/2 ML NEB NEB SCH ×2 (11:26→18:56)
--- NOTE | 2020-02-18 13:21 | EKG ---
Test Reason : RHYTHM CHANGE Blood Pressure : / mmHG Vent. Rate : 172 BPM Atrial Rate : 061 BPM P-R Int : 000 ms QRS Dur : 072 ms QT Int : 288 ms P-R-T Axes : 000 002 244 degrees QTc Int : 487 ms Atrial fibrillation with rapid ventricular response Marked ST abnormality, possible septal subendocardial injury Abnormal ECG When compared with ECG of 31-JAN-2020 23:01, (Unconfirmed) Atrial fibrillation has replaced Sinus rhythm QRS axis Shifted left ST now depressed in Lateral leads Nonspecific T wave abnormality, worse in Lateral leads Confirmed by DR. Lizabeth LORENZANA ([id number]) on 02/18/2020 1:21:32 PM Referred By: JIM Confirmed By:DR. Lizabeth LORENZANA
--- NOTE | 2020-02-18 13:22 | EKG ---
Test Reason : Blood Pressure : / mmHG Vent. Rate : 109 BPM Atrial Rate : 109 BPM P-R Int : 116 ms QRS Dur : 080 ms QT Int : 414 ms P-R-T Axes : 029 034 030 degrees QTc Int : 557 ms Sinus tachycardia with Premature supraventricular complexes Cannot rule out Anterior infarct , age undetermined Prolonged QT Abnormal ECG When compared with ECG of 12-FEB-2020 12:01, (Unconfirmed) Sinus rhythm has replaced Atrial fibrillation Vent. rate has decreased BY [address] no longer depressed in Anterior leads Nonspecific T wave abnormality, improved in Lateral leads Confirmed by DR. Lizabeth LORENZANA ([id number]) on 02/18/2020 1:22:13 PM Referred By: Sofía ROMERO Confirmed By:DR. Lizabeth LORENZANA
--- NOTE | 2020-02-18 13:25 | CT ---
Peritoneal placement of Pleurx catheter under CT guidance HISTORY: Recurrent tense ascites. FINDINGS: Informed consent was obtained. Limited CT imaging the abdomen was performed. Right abdomina l approach was planned. Sterile technique, buffered local anesthesia, 19-gauge needle, and CT guidance were used to carefully access the large amount of free fluid within the right side of the abdomen. Guidewire was placed to hold position. Pleurx catheter was carefully tunneled approximately 4 cm and carefully inserted in to the peritoneal fluid. 0 silk suture was used to close the site of initial insertion and secure the catheter. Catheter was capped for later use. Patient tolerated the procedure well and was returned in unchanged condition. IMPRESSION : Technically successful CT-guided placement of Pleurx catheter to drain peritoneal fluid.
[2020-02-18] MEDS: cefTRIAXone\\ROCEPHIN 2 GM in Sodium Chloride 0.9% 100 ML IVPB SCH (13:29)
[2020-02-18] MEDS: Nadolol 40 MG TAB PO SCH (13:30)
[2020-02-18] MEDS: Spironolactone 100 MG TAB PO SCH (13:36)
--- NOTE | 2020-02-18 15:45 | PDOC.PALPN ---
Palliative Progress Note - Subjective Increase in respiratory distress, confusion. Bradycardia and hypoxemic episode last night, transferred to IMCU and placed on Bipap. Agreeable today for plurex placement to manage ascites and seek comfort care through hospice. - Objective Vital Signs: Vital Signs - Most Recent Temp Pulse Resp BP Pulse Ox 96.9 F L 71 13 129/71 100 02/18/20 11:28 02/18/20 13:52 02/18/20 13:52 02/18/20 01:22 02/18/20 13:52 - Physical Exam Constitutional: encephalitic, ill appearing HEENT: moist MMs Respiratory: diminished lung sound Cardiovascular: RRR Deviation from normal: Distended Genitourinary: calderon catheter Musculoskeletal: diffuse muscle atrophy Neurology: moves all 4 limbs Skin: no lesions, no rash Deviation from normal: Alert, oriented to self, place - Assessment (1) Acute respiratory failure with hypoxia Code(s): J96.01 - ACUTE RESPIRATORY FAILURE WITH HYPOXIA Current Visit: Yes Status: Acute (2) Hepatic encephalopathy Code(s): K72.90 - HEPATIC FAILURE, UNSPECIFIED WITHOUT COMA Current Visit: Yes Status: Acute (3) Sepsis Code(s): A41.9 - SEPSIS, UNSPECIFIED ORGANISM Current Visit: Yes Status: Acute Qualifiers: Sepsis type: Escherichia coli Sepsis acute organ dysfunction status: with acute organ dysfunction Severe sepsis acute organ dysfunction type: acute liver failure Severe sepsis shock status: with septic shock (4) Cirrhosis Code(s): K74.60 - UNSPECIFIED CIRRHOSIS OF LIVER Current Visit: Yes Status: Chronic Qualifiers: Hepatic cirrhosis type: alcoholic cirrhosis Ascites presence: with ascites Qualified Code(s): K70.31 - Alcoholic cirrhosis of liver with ascites (5) Coagulopathy Current Visit: Yes Status: Chronic (6) Palliative care encounter Code(s): Z51.5 - ENCOUNTER FOR PALLIATIVE CARE Current Visit: No Status: Acute - Plan Plan: Mother was agreeable to have placement of plurex for management of ascites, understanding of risk and it is for comfort measures at end of life. Medicaid pending. Mother first choice is to transition to snf with Medicaid pending and hospice care. If this is not an option will seek evaluation of hospice inpatient. Mother states she can not bring Silvio home, or care for him in the home setting. Palliative Care has communicated with Dr Ford. Will attempt to initiate OOHDNAR for Dr Durand signature. Will place Hospice consult with goal to transition patient to hospice services. Please also refer to Palliative Care notes in note section. [45] minutes spent on this encounter with >50% of the time in counseling and coordination of care. - ROS Non Response: due to mental status
--- NOTE | 2020-02-18 17:59 | PDOC.HOSPP ---
- Subjective Encounter Date: 02/18/20 Encounter Time: 13:00 Subjective: Patient seen for follow-up regarding hypoxic respiratory failure. Denies chest pain. Did not sleep well. - Objective Vital Signs & Weight: Vital Signs (12 hours) Temp Pulse Resp Pulse Ox 02/18/20 15:46 97.2 F L 02/18/20 13:52 71 13 100 02/18/20 11:28 96.9 F L 02/18/20 08:00 100 02/18/20 07:48 97.4 F L Weight Admit Weight 221 lb 9.033 oz Weight 220 lb 14.38 oz Most Recent Monitor Data Heart Rate from ECG 76 NIBP 99/70 NIBP BP-Mean 79 Respiration from ECG 21 SpO2 100 I&O: 02/17/20 02/18/20 02/19/20 06:59 06:59 06:59 Intake Total 1220 1270 Output Total 3500 2175 Balance -4191 -037 Result Diagrams: 02/18/20 08:06 02/18/20 08:06 Additional Labs: Accuchecks 02/17/20 19:06 POC Glucose 102 H Labs and MAR reviewed by me EKG Reviewed by me: Yes (NSR on telemetry) Hospitalist ROS - Review of Systems Gastrointestinal: denies: nausea, vomiting, abdominal pain, diarrhea, constipation, melena, hematochezia Genitourinary: denies: dysuria, frequency, incontinence, hematuria, retention - Medication Medications: Active Medications Generic Name Dose Route Start Last Admin Trade Name Freq PRN Reason Stop Dose Admin Budesonide 0.5 mg 02/10/20 18:30 02/18/20 11:26 Budesonide 0.5 Mg/2 Ml Neb NEB Not Given BID-RT ABRAM Furosemide 40 mg 02/17/20 09:00 02/18/20 10:51 Furosemide 40 Mg/4 Ml Vial SLOW IVP 40 mg DAILY ABRAM Administration Ceftriaxone Sodium 2 gm/ 100 mls @ 200 mls/hr 02/03/20 14:00 02/18/20 13:29 Sodium Chloride IVPB 100 mls Q24HR ABRAM Administration Dextrose/Sodium Chloride 1,000 mls @ 50 mls/hr 02/10/20 08:45 02/17/20 14:14 D5 1/4 Ns IV 1,000 mls .Q20H ABRAM Administration Insulin Human Lispro 0 units 01/31/20 23:37 02/16/20 06:42 Humalog 300 Units/3 Ml Vial SC 2 unit .MILD SLIDING SCALE PRN Administration Mild Correctional Scale Labetalol HCl 20 mg 01/31/20 23:35 02/11/20 10:12 Labetalol Hcl 100 Mg/20 Ml Vial SLOW IVP 20 mg Q4H PRN Administration SBP > 160 use third Nadolol 40 mg 02/17/20 09:00 02/18/20 13:30 Nadolol 40 Mg Tab PO Not Given DAILY ABRAM Nystatin 0 gm 02/02/20 09:00 02/18/20 10:52 Nystatin Powder 15 Gm Bot TOP 1 applic BID ABRAM Administration Ondansetron HCl 4 mg 01/31/20 23:35 02/07/20 21:48 Ondansetron Pf 4 Mg/2 Ml Vial IVP 4 mg Q6H PRN Administration Nausea/Vomiting use 1st Pantoprazole Sodium 40 mg 02/07/20 21:00 02/18/20 10:51 Pantoprazole 40 Mg Vial IVP 40 mg Q12HR ABRAM Administration Sodium Chloride 10 ml 02/07/20 12:15 02/16/20 20:56 Sodium Chloride 0.9% (Pf) 10 Ml Vial FS 10 ml PRN PRN Administration RECONSTITUTION Sodium Chloride 10 ml 02/16/20 09:00 02/18/20 10:53 Flush - Normal Saline 10 Ml Syringe IVF 10 ml Q12HR ABRAM Administration Spironolactone 100 mg 02/17/20 08:00 02/18/20 13:36 Spironolactone 100 Mg Tab PO 100 mg QAM-WM ABRAM Administration - Exam General - other findings: Obese Eye: scleral icterus ENT: moist mucosa Neck: supple Heart: RRR Respiratory: CTAB Gastrointestinal: soft, non-tender Extremities: 2+ LE edema Skin: no rashes Psychiatric: normal affect Hosp A/P - Plan -Assessment (1) Acute respiratory failure with hypoxia Code(s): J96.01 - ACUTE RESPIRATORY FAILURE WITH HYPOXIA Status: Acute (2) E coli bacteremia Code(s): R78.81 - BACTEREMIA; B96.20 - UNSP ESCHERICHIA COLI THE CAUSE OF DISEASES CLASSD ELSWHR Status: Acute (3) Dysphagia Code(s): R13.10 - DYSPHAGIA, UNSPECIFIED Status: Acute (4) Cirrhosis Code(s): K74.60 - UNSPECIFIED CIRRHOSIS OF LIVER Status: Chronic Qualifiers: Hepatic cirrhosis type: alcoholic cirrhosis Ascites presence: with ascites Qualified Code(s): K70.31 - Alcoholic cirrhosis of liver with ascites Plan: Advanced cirrhosis, medical mgmt (5) Hypernatremia Code(s): E87.0 - HYPEROSMOLALITY AND HYPERNATREMIA Status: Acute (6) Acute kidney failure Status: Resolved (7) Septic shock Status: Resolved (8) hypotension Status: Resolved - Plan Patient was admitted on January 31, 2020 after syncopal episode and dark melanotic stool at home. Seen by GI service, it was felt that his hypotension was secondary to sepsis and not hemorrhagic shock. He also has a history of li nabila disease and ascites. He was treated with antibiotics. He underwent paracentesis on February 02, 2020. He was also seen by infectious disease service. He was transitioned to meropenem. 1 out of 2 blood cultures grew E coli. He is currently on ceftriaxone 2 g every 24 hours. He was also treated with pressors for septic shock. He also has a history of ulcerative colitis, which is in remission. He underwent repeat paracentesis on February 04, 2020. Also seen by nephrology service. He received IV albumin for possible hepatorenal syndrome. Repeat paracentesis on February 07, 2020 as well. Palliative care service is following patient. Oral intake is poor, he is currently receiving Dobbhoff feeds. Family does not want PEG tube placed. He is currently DNAR. Also seen by cardiology service for paroxysmal atrial fibrillation. They do not recommend anticoagulation at this time. Code green last night for bradycardia. He is in the IMCU today. After further discussion, interventional radiology has been consulted for placement of Pleurx catheter for ascitic fluid. Pleurx catheter was placed today. This will facilitate transitioning to hospice care. Patient will likely be discharged to inpatient hospice tomorrow.
--- NOTE | 2020-02-18 20:11 | PRG ---
DATE OF SERVICE: 02/18/2020 SUBJECTIVE: Mr. Cesar is lying in his bed and is not interactive. When asked multiple times he can finally state what his name is. OBJECTIVE: GENERAL: He is awake, however. There is a Dobhoff tube in place. LUNGS: Clear to auscultation bilaterally. HEART: Regular rate and rhythm. ABDOMEN: Soft, nontender, and nondistended. Bowel sounds are present. EXTREMITIES: 2+ lower extremity edema. He had a PleurX catheter placed to drain peritoneal fluid ordered by palliative care. IMPRESSION: 1. End-stage liver disease secondary to alcohol. 2. Ascites. He has had a PleurX catheter placed for palliative drainage. 3. Respiratory failure. He has been started on BiPAP. 4. Paroxysmal atrial fibrillation. 5. Ulcerative colitis. His immunosuppression has been held since admission due to sepsis. 6. Encephalopathy. 7. Oropharyngeal dysphagia requiring Dobbhoff tube placement. He is not a candidate for percutaneous endoscopic gastrostomy tube given the refractory ascites. RECOMMENDATIONS: Plan is to transition to palliative hospice care. Job ID: [id number]
[2020-02-18] MEDS: D5 1/4 NS 1,000 ML IV SCH (22:40)
[2020-02-19 05:29] LABS: #Eosinphils 0.1 thou/uL (0.0-0.7); #Lymphocytes 0.8 thou/uL (1.20-3.40); #Monocytes 0.5 thou/uL (0.11-0.59); #Neutrophils 4.6 thou/uL (1.40-6.50); %Basophils 0.8 % (0.0-1.0); %Eosinophils 1.1 % (0.0-10.0); %Lymphocytes 12.9 % (21.0-51.0); %Monocytes 8.9 % (0.0-10.0); %Neutrophils 76.3 % (42.0-75.0); Hemoglobin 9.1 g/dL (14.0-18.0); Mean Corpuscular HGB CONC 32.4 g/dL (32.0-36.0); Mean Corpuscular Hemoglobin 31.6 pg (27.0-31.0); Mean Corpuscular Volume 97.6 fL (78.0-98.0); Mean Platelet Volume 12.8 fL (7.4-10.4); Platelet Count 89 thou/uL (130-400); RBC Distribution Width 17.9 % (11.5-14.5); Red Blood Cell (RBC) Count 2.87 mill/uL (4.70-6.10)
[2020-02-19 06:12] LABS: ALT (SGPT) 30 U/L (8-55); AST (SGOT) 40 U/L (5-34); Albumin 2.3 g/dL (3.5-5.0); Alkaline Phosphatase 277 U/L (40-110); Anion Gap 9 mmol/L (10-20); BUN (Urea Nitrogen) 15 mg/dL (8.9-20.6); Bilirubin, Total 1.5 mg/dL (0.2-1.2); Calc. Creatinine Clearance 263 mL/min (70-130); Calcium 8.1 mg/dL (7.8-10.44); Carbon Dioxide 34 mmol/L (22-29); Chloride 105 mmol/L (98-107); Estimated GFR-MDRD Greater than 90; Globulin 2.4 g/dL (2.4-3.5); Glucose 84 mg/dL (70-105); Potassium 3.6 mmol/L (3.5-5.1); Protein, Total 4.7 g/dL (6.0-8.3); Sodium 144 mmol/L (136-145)
[2020-02-19] MEDS: Budesonide 0.5 MG/2 ML NEB NEB SCH ×2 (07:48→18:15)
--- NOTE | 2020-02-19 09:40 | PDOC.HOSPP ---
- Subjective Encounter Date: 02/19/20 Encounter Time: 09:36 Subjective: Mr. Cesar was seen today in follow-up of liver failure. He notes some lower abdominal pain, and some nausea. - Objective Vital Signs & Weight: Vital Signs (12 hours) Temp Pulse Resp Pulse Ox 02/19/20 08:00 97.6 F 02/19/20 07:48 78 20 99 02/19/20 03:48 98.0 F 02/19/20 00:19 98 02/19/20 00:18 77 18 98 02/19/20 00:00 97.4 F L Weight Admit Weight 221 lb 9.033 oz Weight 220 lb 14.38 oz Most Recent Monitor Data Heart Rate from ECG 83 NIBP 110/78 NIBP BP-Mean 88 Respiration from ECG 22 SpO2 95 I&O: 02/18/20 02/19/20 02/20/20 06:59 06:59 06:59 Intake Total 1270 350 Output Total 2175 1750 Balance -905 -1400 Result Diagrams: 02/19/20 05:15 02/19/20 05:15 Additional Labs: Accuchecks 02/19/20 02/19/20 05:43 00:11 POC Glucose 84 80 Hospitalist ROS - Medication Medications: Active Medications Generic Name Dose Route Start Last Admin Trade Name Freq PRN Reason Stop Dose Admin Budesonide 0.5 mg 02/10/20 18:30 02/19/20 07:48 Budesonide 0.5 Mg/2 Ml Neb NEB 0.5 mg BID-RT ABRAM Administration Furosemide 40 mg 02/17/20 09:00 02/18/20 10:51 Furosemide 40 Mg/4 Ml Vial SLOW IVP 40 mg DAILY ABRAM Administration Ceftriaxone Sodium 2 gm/ 100 mls @ 200 mls/hr 02/03/20 14:00 02/18/20 13:29 Sodium Chloride IVPB 100 mls Q24HR ABRAM Administration Dextrose/Sodium Chloride 1,000 mls @ 50 mls/hr 02/10/20 08:45 02/18/20 22:40 D5 1/4 Ns IV 1,000 mls .Q20H ABRAM Administration Insulin Human Lispro 0 units 01/31/20 23:37 02/16/20 06:42 Humalog 300 Units/3 Ml Vial SC 2 unit .MILD SLIDING SCALE PRN Administration Mild Correctional Scale Labetalol HCl 20 mg 01/31/20 23:35 02/11/20 10:12 Labetalol Hcl 100 Mg/20 Ml Vial SLOW IVP 20 mg Q4H PRN Administration SBP > 160 use third Nadolol 40 mg 02/17/20 09:00 02/18/20 13:30 Nadolol 40 Mg Tab PO Not Given DAILY ABRAM Nystatin 0 gm 02/02/20 09:00 02/18/20 23:51 Nystatin Powder 15 Gm Bot TOP 1 applic BID ABRAM Administration Ondansetron HCl 4 mg 01/31/20 23:35 02/07/20 21:48 Ondansetron Pf 4 Mg/2 Ml Vial IVP 4 mg Q6H PRN Administration Nausea/Vomiting use 1st Pantoprazole Sodium 40 mg 02/07/20 21:00 02/18/20 23:51 Pantoprazole 40 Mg Vial IVP 40 mg Q12HR ABRAM Administration Sodium Chloride 10 ml 02/07/20 12:15 02/16/20 20:56 Sodium Chloride 0.9% (Pf) 10 Ml Vial FS 10 ml PRN PRN Administration RECONSTITUTION Sodium Chloride 10 ml 02/16/20 09:00 02/18/20 23:51 Flush - Normal Saline 10 Ml Syringe IVF 10 ml Q12HR ABRAM Administration Spironolactone 100 mg 02/17/20 08:00 02/18/20 13:36 Spironolactone 100 Mg Tab PO 100 mg QAM-WM ABRAM Administration - Exam Eye: PERRL, anicteric sclera Heart: RRR, no murmur, no gallops, no rubs, normal peripheral pulses Respiratory: CTAB, no wheezes, no rales, no ronchi, normal chest expansion Gastrointestinal: distended (+ mildly tender to palpation) Extremities: no cyanosis, 1+ LE edema Hosp A/P (1) Ascites Code(s): R18.8 - OTHER ASCITES Status: Acute (2) Cirrhosis Code(s): K74.60 - UNSPECIFIED CIRRHOSIS OF LIVER Status: Chronic Qualifiers: Hepatic cirrhosis type: alcoholic cirrhosis Ascites presence: with ascites Qualified Code(s): K70.31 - Alcoholic cirrhosis of liver with ascites (3) Chronic alcohol use Code(s): Z72.89 - OTHER PROBLEMS RELATED TO LIFESTYLE Status: Chronic (4) Ulcerative colitis Code(s): K51.90 - ULCERATIVE COLITIS, UNSPECIFIED, WITHOUT COMPLICATIONS Status: Chronic Qualifiers: Ulcerative colitis location: unspecified ulcerative colitis location Digestive disease complication type: without complication Qualified Code(s): K51.90 - Ulcerative colitis, unspecified, without complications (5) Atrial fibrillation with RVR Code(s): I48.91 - UNSPECIFIED ATRIAL FIBRILLATION Status: Resolved - Plan * Cirrhosis- felt to be end stage- he has refractory ascites, adn developed renal insufficiency * He has decided on Hospice care * AFIB with RVR- his heart rate is stable- he is at risk for catastrophic bleed, therefore no anticoagulation * Ulcerative Colitis- Quiescent * Awaiting out patient Hospice evaluation
--- NOTE | 2020-02-19 10:08 | RAD ---
XR Chest 1 View Portable History: Pneumonia Comparison: Radiograph prior day Findings: Moderate effusions. Weighted feeding tube tip at the gastric antrum. Compressive atelectasi s in both lung bases. Subclavian venous catheter projects over the mid SVC. Impression: Similar examination of the chest.
[2020-02-19] MEDS: Spironolactone 100 MG TAB PO SCH (10:28)
[2020-02-19] MEDS: Nadolol 40 MG TAB PO SCH (10:28)
[2020-02-19] MEDS: Nystatin Powder 15 GM BOT TOP SCH ×2 (10:29→20:26)
[2020-02-19] MEDS: Pantoprazole 40 MG VIAL IVP SCH ×2 (10:29→20:27)
[2020-02-19] MEDS: Furosemide 40 MG/4 ML VIAL SLOW IVP SCH (10:29)
--- NOTE | 2020-02-19 12:59 | PRG ---
DATE OF SERVICE: 02/19/2020 SUBJECTIVE: Mr. Cesar is actually doing better today. He has started to make copious amounts of urine. OBJECTIVE: VITAL SIGNS: Temperature 97.6, pulse 83, blood pressure 110/78, O2 saturation 95% on nasal cannula. HEENT: Unremarkable. NECK: No JVD. LUNGS: Diminished breath sounds in the bases. CARDIAC: S1, S2. Regular. ABDOMEN: Protuberant. EXTREMITIES: Edematous. LABORATORY DATA: White blood cell count 6, hematocrit 28, and platelet count 89. Sodium 144, potassium 3.6, chloride 105, CO2 of 34, BUN 15, creatinine 0.5, glucose 84. ASSESSMENT: 1. End-stage cirrhosis. 2. Ascites. 3. Acute on chronic respiratory failure. 4. Paroxysmal atrial fibrillation. PLAN: Basically palliative at this point, it is encouraging that he feels better today, but I think the effects will not be lasting. I would anticipate when he goes home, he will probably start drinking again and lined up in the same state very soon. I do not have anything to add to his current care. I will be available as needed. From my standpoint, he can transfer out to the regular floor. I will stop the daily x-rays. Job ID: [id number]
--- NOTE | 2020-02-19 13:12 | PRG ---
DATE OF SERVICE: 02/19/2020 SUBJECTIVE: Mr. Cesar is more oriented today, but still minimally interactive with me, but did have more meaningful conversation with the primary team earlier today. OBJECTIVE: VITAL SIGNS: Temperature is 97.8, blood pressure 114/85, pulse 83. GENERAL: He is in no acute distress. Awake and responsive. LUNGS: Clear to auscultation bilaterally. HEART: Regular rate and rhythm without murmur. ABDOMEN: Mildly distended, but soft. His bowel sounds are present. EXTREMITIES: 2+ lower extremity edema. LABORATORY DATA: Hemoglobin is 9.1, bilirubin 1.5, AST 40, ALT 30, alkaline phosphatase 277, albumin 2.3. IMPRESSION: 1. Alcoholic cirrhosis. He has decompensation with ascites and some degree of encephalopathy. His INR and bilirubin are not significantly elevated. Albumin is low at 2.3. 2. Confusion seems better today. Part of this might have been related to respiratory failure and CO2 retention. 3. Respiratory failure requiring BiPAP. His respiratory status is actually improved today. 4. Ascites status post PleurX catheter for palliative drainage. 5. Ulcerative colitis, which is quiescent of immunosuppressives currently. 6. Oropharyngeal dysphagia requiring Dobhoff tube due to aspiration risk. 7. Paroxysmal atrial fibrillation. 8. Sepsis, clinically improved. RECOMMENDATIONS: 1. Continue low-salt diet. 2. Continue furosemide and spironolactone. 3. Transitioning to hospice care per his request soon. Job ID: [id number]
[2020-02-19] MEDS: cefTRIAXone\\ROCEPHIN 2 GM in Sodium Chloride 0.9% 100 ML IVPB SCH (16:32)
[2020-02-19] MEDS: D5 1/4 NS 1,000 ML IV SCH (16:37)
[2020-02-20] MEDS: Budesonide 0.5 MG/2 ML NEB NEB SCH ×2 (07:55→19:10)
[2020-02-20] MEDS: Furosemide 40 MG/4 ML VIAL SLOW IVP SCH (08:46)
[2020-02-20] MEDS: Sodium Chloride 0.9% (PF) 10 ML VIAL FS PRN (08:46)
[2020-02-20] MEDS: Spironolactone 100 MG TAB PO SCH (08:46)
[2020-02-20] MEDS: Pantoprazole 40 MG VIAL IVP SCH ×2 (08:46→21:25)
[2020-02-20] MEDS: D5 1/4 NS 1,000 ML IV SCH (08:48)
[2020-02-20] MEDS: Nystatin Powder 15 GM BOT TOP SCH ×2 (08:48→21:25)
[2020-02-20] MEDS: Nadolol 40 MG TAB PO SCH (11:35)
[2020-02-20] MEDS: cefTRIAXone\\ROCEPHIN 2 GM in Sodium Chloride 0.9% 100 ML IVPB SCH (14:09)
--- NOTE | 2020-02-20 14:57 | PDOC.HOSPP ---
- Subjective Encounter Date: 02/20/20 Encounter Time: 14:56 Subjective: Mr. Cesar was seen today in follow-up of Cirrhosis, sepsis and E. Coli bacteremia - Objective Vital Signs & Weight: Vital Signs (12 hours) Temp Pulse Resp BP BP Pulse Ox 02/20/20 11:43 98.3 F 88 16 111/74 98 02/20/20 07:55 83 20 02/20/20 07:40 98.5 F 86 15 110/81 98 02/20/20 03:40 97.7 F 89 14 105/73 92 L Weight Admit Weight 221 lb 9.033 oz Weight 211 lb 5 oz Most Recent Monitor Data Heart Rate from ECG 82 NIBP 111/83 NIBP BP-Mean 92 Respiration from ECG 23 SpO2 99 I&O: 02/19/20 02/20/20 02/21/20 06:59 06:59 06:59 Intake Total 350 810 237 Output Total 1750 550 Balance -1400 260 237 Result Diagrams: 02/19/20 05:15 02/19/20 05:15 Additional Labs: Accuchecks 02/20/20 02/20/20 02/20/20 11:49 05:48 00:23 POC Glucose 146 H 152 H 94 02/19/20 19:12 POC Glucose 101 H Hospitalist ROS - Medication Medications: Active Medications Generic Name Dose Route Start Last Admin Trade Name Freq PRN Reason Stop Dose Admin Budesonide 0.5 mg 02/10/20 18:30 02/20/20 07:55 Budesonide 0.5 Mg/2 Ml Neb NEB 0.5 mg BID-RT ABRAM Administration Furosemide 40 mg 02/17/20 09:00 02/20/20 08:46 Furosemide 40 Mg/4 Ml Vial SLOW IVP 40 mg DAILY ABRAM Administration Ceftriaxone Sodium 2 gm/ 100 mls @ 200 mls/hr 02/03/20 14:00 02/20/20 14:09 Sodium Chloride IVPB 100 mls Q24HR ABRAM Administration Dextrose/Sodium Chloride 1,000 mls @ 50 mls/hr 02/10/20 08:45 02/20/20 08:48 D5 1/4 Ns IV 1,000 mls .Q20H ABRAM Administration Insulin Human Lispro 0 units 01/31/20 23:37 02/16/20 06:42 Humalog 300 Units/3 Ml Vial SC 2 unit .MILD SLIDING SCALE PRN Administration Mild Correctional Scale Labetalol HCl 20 mg 01/31/20 23:35 02/11/20 10:12 Labetalol Hcl 100 Mg/20 Ml Vial SLOW IVP 20 mg Q4H PRN Administration SBP > 160 use third Nadolol 40 mg 02/17/20 09:00 02/20/20 11:35 Nadolol 40 Mg Tab PO 40 mg DAILY ABRAM Administration Nystatin 0 gm 02/02/20 09:00 02/20/20 08:48 Nystatin Powder 15 Gm Bot TOP 1 applic BID ABRAM Administration Ondansetron HCl 4 mg 01/31/20 23:35 02/07/20 21:48 Ondansetron Pf 4 Mg/2 Ml Vial IVP 4 mg Q6H PRN Administration Nausea/Vomiting use 1st Pantoprazole Sodium 40 mg 02/07/20 21:00 02/20/20 08:46 Pantoprazole 40 Mg Vial IVP 40 mg Q12HR ABRAM Administration Sodium Chloride 10 ml 02/07/20 12:15 02/20/20 08:46 Sodium Chloride 0.9% (Pf) 10 Ml Vial FS 10 ml PRN PRN Administration RECONSTITUTION Sodium Chloride 10 ml 02/16/20 09:00 02/20/20 08:47 Flush - Normal Saline 10 Ml Syringe IVF Not Given Q12HR ABRAM Spironolactone 100 mg 02/17/20 08:00 02/20/20 08:46 Spironolactone 100 Mg Tab PO 100 mg QAM-WM ABRAM Administration - Exam Eye: PERRL Eye - other findings: pale sclera Heart: RRR, no murmur, no gallops, no rubs, normal peripheral pulses Respiratory: CTAB, no wheezes, no rales, no ronchi, normal chest expansion, no tachypnea Gastrointestinal: normal bowel sounds, no guarding, no rigidity, distended Extremities: no cyanosis, 2+ LE edema Hosp A/P (1) Ascites Code(s): R18.8 - OTHER ASCITES Status: Acute (2) Cirrhosis Code(s): K74.60 - UNSPECIFIED CIRRHOSIS OF LIVER Status: Chronic Qualifiers: Hepatic cirrhosis type: alcoholic cirrhosis Ascites presence: with ascites Qualified Code(s): K70.31 - Alcoholic cirrhosis of liver with ascites (3) Chronic alcohol use Code(s): Z72.89 - OTHER PROBLEMS RELATED TO LIFESTYLE Status: Chronic (4) Ulcerative colitis Code(s): K51.90 - ULCERATIVE COLITIS, UNSPECIFIED, WITHOUT COMPLICATIONS Status: Chronic Qualifiers: Ulcerative colitis location: unspecified ulcerative colitis location Digestive disease complication type: without complication Qualified Code(s): K51.90 - Ulcerative colitis, unspecified, without complications (5) Atrial fibrillation with RVR Code(s): I48.91 - UNSPECIFIED ATRIAL FIBRILLATION Status: Resolved - Plan * Cirrhosis- with refractory ascites. The patient has decided on Hospice Care * AFIB with RVR- his heart rate is stable- he is at risk for catastrophic bleed, therefore no anticoagulation * Ulcerative Colitis- Quiescent * Dysphagia- due to muscle weakness- will consult speech therapy to re- assess * Awaiting out patient Hospice evaluation
--- NOTE | 2020-02-20 17:54 | PRG ---
DATE OF SERVICE: 02/20/2020 SUBJECTIVE: Mr. Cesar is more interactive today. Certainly, oriented x3. He has had some low back discomfort, but no other acute complaints currently. He is tolerating his Dobbhoff tube feeds. OBJECTIVE: VITAL SIGNS: Temperature 98.3, pulse 88, blood pressure 111/74. GENERAL: He is in no acute distress. LUNGS: Clear to auscultation bilaterally. HEART: Regular rate and rhythm without murmur. ABDOMEN: Soft, nontender, and nondistended. Bowel sounds are present. EXTREMITIES: 1+ lower extremity edema. LABORATORY DATA: No new labs today. IMPRESSION: 1. End-stage liver disease secondary to alcohol. 2. Oropharyngeal dysphagia. He has had paroxysmal atrial fibrillation and potentially could have a stroke or perhaps this is muscle weakness or other neurological issue. I am not clear why he is having the oropharyngeal dysphagia at this point, but it is time to reassess with Speech Pathology to see if he has to continue with the Dobbhoff tube feeds. He is not a candidate for a PEG tube given his ascites. 3. Ascites. He had a PleurX catheter placed by palliative care orders or primary care orders. He is considering hospice care from here. If he ultimately decides against hospice care and he quits drinking, then this will need to be removed due to infection risk in the future. 4. Respiratory failure. He is doing better from this standpoint. 5. Ulcerative colitis which has been quiescent off immunosuppressives for the last month. 6. Sepsis, improved. RECOMMENDATIONS: 1. Low-salt diet. 2. Furosemide and spironolactone. 3. He is on nadolol started by Cardiology due to paroxysmal atrial fibrillation. 4. Modified barium swallow with Speech Pathology. 5. Alcohol cessation is advised. Job ID: [id number]
[2020-02-21] MEDS: Budesonide 0.5 MG/2 ML NEB NEB SCH ×2 (07:20→18:58)
[2020-02-21] MEDS: D5 1/4 NS 1,000 ML IV SCH (07:29)
[2020-02-21] MEDS: Nystatin Powder 15 GM BOT TOP SCH ×2 (08:42→21:06)
[2020-02-21] MEDS: Spironolactone 100 MG TAB PO SCH (08:42)
[2020-02-21] MEDS: Pantoprazole 40 MG VIAL IVP SCH ×2 (08:42→21:06)
[2020-02-21] MEDS: Furosemide 40 MG/4 ML VIAL SLOW IVP SCH (08:43)
--- NOTE | 2020-02-21 10:20 | PRG ---
DATE OF SERVICE: 02/21/2020 SUBJECTIVE: Mr. Cesar is awake and alert. He did better with his bedside swallow today. OBJECTIVE: VITAL SIGNS: Temperature 98.7, pulse 83, blood pressure 103/71. GENERAL: He is in no acute distress. Awake and alert. LUNGS: Clear to auscultation bilaterally. HEART: Regular rate and rhythm without murmur. ABDOMEN: Soft, nontender, and nondistended. Bowel sounds are present. EXTREMITIES: Trace lower extremity edema. IMPRESSION: 1. Oropharyngeal dysphagia. He has Dobbhoff tube in place. His mental status is improving and hopefully, he will be able to progress to oral feeds again. He has a modified barium swallow plan for today. 2. Cirrhosis secondary to alcohol. 3. Ascites. 4. Respiratory failure. 5. Ulcerative colitis, quiescent. Off any immunosuppression. RECOMMENDATIONS: 1. Low-salt diet. 2. Furosemide and spironolactone. 3. He is on nadolol for atrial fibrillation. 4. Modified barium swallow with speech path today. 5. Alcohol abstinence. 6. Noted he has a PleurX catheter in place. This might ultimately to be removed in the future if he does not end up transitioning to hospice care. 7. Once he is tolerating an oral diet, I anticipating either discharged home or to rehab or snf or hospice. Job ID: [id number]
--- NOTE | 2020-02-21 10:48 | CT ---
Peritoneal placement of Pleurx catheter under CT guidance HISTORY: Recurrent tense ascites. FINDINGS: Informed consent was obtained. Limited CT imaging the abdomen was performed. Right abdomina l approach was planned. Sterile technique, buffered local anesthesia, 19-gauge needle, and CT guidance were used to carefully access the large amount of free fluid within the right side of the abdomen. Guidewire was placed to hold position. Pleurx catheter was carefully tunneled approximately 4 cm and carefully inserted in to the peritoneal fluid. 0 silk suture was used to close the site of initial insertion and secure the catheter. Catheter was capped for later use. Patient tolerated the procedure well and was returned in unchanged condition. IMPRESSION : Technically successful CT-guided placement of Pleurx catheter to drain peritoneal fluid. Transcribed Date/Time: 02/21/2020 10:48 AM
[2020-02-21] MEDS: Nadolol 40 MG TAB PO SCH (11:13)
--- NOTE | 2020-02-21 12:47 | PDOC.HOSPP ---
- Subjective Encounter Date: 02/21/20 Encounter Time: 12:47 Subjective: Mr. Cesar was seen today in follow-up of cirrhosis and deconditioning, and encephalopathy. He does not have any new complaints. He notes some back pain. He says he rested well. - Objective Vital Signs & Weight: Vital Signs (12 hours) Temp Pulse Resp BP BP Pulse Ox 02/21/20 12:18 98.2 F 81 16 105/73 98 02/21/20 07:30 98.7 F 83 14 103/71 98 02/21/20 03:39 97.9 F 81 15 106/77 98 Weight Admit Weight 221 lb 9.033 oz Weight 212 lb 2 oz Most Recent Monitor Data Heart Rate from ECG 82 NIBP 111/83 NIBP BP-Mean 92 Respiration from ECG 23 SpO2 99 I&O: 02/20/20 02/21/20 02/22/20 06:59 06:59 06:59 Intake Total 810 1617 Output Total 550 1200 Balance 260 417 Result Diagrams: 02/19/20 05:15 02/19/20 05:15 Additional Labs: Accuchecks 02/21/20 02/21/20 02/21/20 10:43 05:41 00:16 POC Glucose 134 H 138 H 124 H 02/20/20 19:15 POC Glucose 130 H Hospitalist ROS - Medication Medications: Active Medications Generic Name Dose Route Start Last Admin Trade Name Freq PRN Reason Stop Dose Admin Budesonide 0.5 mg 02/10/20 18:30 02/21/20 07:20 Budesonide 0.5 Mg/2 Ml Neb NEB Not Given BID-RT BARAM Furosemide 40 mg 02/17/20 09:00 02/21/20 08:43 Furosemide 40 Mg/4 Ml Vial SLOW IVP 40 mg DAILY ABRAM Administration Ceftriaxone Sodium 2 gm/ 100 mls @ 200 mls/hr 02/03/20 14:00 02/20/20 14:09 Sodium Chloride IVPB 100 mls Q24HR ABRAM Administration Dextrose/Sodium Chloride 1,000 mls @ 50 mls/hr 02/10/20 08:45 02/21/20 07:29 D5 1/4 Ns IV 1,000 mls .Q20H ABRAM Administration Insulin Human Lispro 0 units 01/31/20 23:37 02/16/20 06:42 Humalog 300 Units/3 Ml Vial SC 2 unit .MILD SLIDING SCALE PRN Administration Mild Correctional Scale Labetalol HCl 20 mg 01/31/20 23:35 02/11/20 10:12 Labetalol Hcl 100 Mg/20 Ml Vial SLOW IVP 20 mg Q4H PRN Administration SBP > 160 use third Nadolol 40 mg 02/17/20 09:00 02/21/20 11:13 Nadolol 40 Mg Tab PO Not Given DAILY ABRAM Nystatin 0 gm 02/02/20 09:00 02/21/20 08:42 Nystatin Powder 15 Gm Bot TOP 1 applic BID ABRAM Administration Ondansetron HCl 4 mg 01/31/20 23:35 02/07/20 21:48 Ondansetron Pf 4 Mg/2 Ml Vial IVP 4 mg Q6H PRN Administration Nausea/Vomiting use 1st Pantoprazole Sodium 40 mg 02/07/20 21:00 02/21/20 08:42 Pantoprazole 40 Mg Vial IVP 40 mg Q12HR ABRAM Administration Sodium Chloride 10 ml 02/07/20 12:15 02/20/20 08:46 Sodium Chloride 0.9% (Pf) 10 Ml Vial FS 10 ml PRN PRN Administration RECONSTITUTION Sodium Chloride 10 ml 02/16/20 09:00 02/21/20 08:43 Flush - Normal Saline 10 Ml Syringe IVF 10 ml Q12HR ABRAM Administration Spironolactone 100 mg 02/17/20 08:00 02/21/20 08:42 Spironolactone 100 Mg Tab PO 100 mg QAM-WM ABRAM Administration - Exam General Appearance: NAD Eye: PERRL Eye - other findings: pale sclera Heart: RRR, no murmur, no gallops, no rubs, normal peripheral pulses Respiratory: CTAB, no wheezes, no rales, normal chest expansion Gastrointestinal: soft, non-tender, normal bowel sounds, distended Extremities: no cyanosis, 1+ LE edema Hosp A/P (1) Ascites Code(s): R18.8 - OTHER ASCITES Status: Acute (2) Cirrhosis Code(s): K74.60 - UNSPECIFIED CIRRHOSIS OF LIVER Status: Chronic Qualifiers: Hepatic cirrhosis type: alcoholic cirrhosis Ascites presence: with ascites Qualified Code(s): K70.31 - Alcoholic cirrhosis of liver with ascites (3) Chronic alcohol use Code(s): Z72.89 - OTHER PROBLEMS RELATED TO LIFESTYLE Status: Chronic (4) Ulcerative colitis Code(s): K51.90 - ULCERATIVE COLITIS, UNSPECIFIED, WITHOUT COMPLICATIONS Status: Chronic Qualifiers: Ulcerative colitis location: unspecified ulcerative colitis location Digestive disease complication type: without complication Qualified Code(s): K51.90 - Ulcerative colitis, unspecified, without complications (5) Atrial fibrillation with RVR Code(s): I48.91 - UNSPECIFIED ATRIAL FIBRILLATION Status: Resolved - Plan * Cirrhosis- his liver function has actually improved some since his admission. Discussed with Dr. Ko. His longevity may be more than 6 months IF he abstains from alcohol. I explained this to the patient and his mother. He is not quite decisional, and he continues to have some confusion. He would like to defer decisions to his mother. She was on her way to the hospital when I called. She will visit with him and decide. She till would like him to go to a nursing facility, which I agree. * If they continue to want Hospice, then will leave the PleurX catheter in place- if they decide for active care, then will remove it, to prevent risk for infection * AFIB with RVR- his heart rate is stable- no anticoagulation * Ulcerative Colitis- Quiescent * Dysphagia- improved- spoke with the Speech Therapist, and can upgrade his diet to pureed * Acute kidney injury- resolved * Discharge planning is in progress
[2020-02-21] MEDS: cefTRIAXone\\ROCEPHIN 2 GM in Sodium Chloride 0.9% 100 ML IVPB SCH (13:30)
[2020-02-22] MEDS: D5 1/4 NS 1,000 ML IV SCH (03:08)
--- NOTE | 2020-02-22 07:32 | PDOC.HOSPP ---
- Subjective Encounter Date: 02/22/20 Encounter Time: 08:00 Subjective: Mr. Cesar was followed up this morning for his cirrhosis, deconditioning, and encephalopathy. Patient denied any new symptoms or complaints. Stated continued back pain rated at a 5/6 out of 10. Patient stated he slept as well as usual. - Objective Vital Signs & Weight: Vital Signs (12 hours) Temp Pulse Resp BP Pulse Ox 02/22/20 04:00 98.4 F 82 18 109/72 92 L 02/21/20 21:05 98.6 F 84 20 109/74 97 02/21/20 20:00 96 Weight Admit Weight 221 lb 9.033 oz Weight 212 lb 2 oz Most Recent Monitor Data Heart Rate from ECG 82 NIBP 111/83 NIBP BP-Mean 92 Respiration from ECG 23 SpO2 99 I&O: 02/21/20 02/22/20 02/23/20 06:59 06:59 06:59 Intake Total 1617 1410 Output Total 1200 Balance 417 1410 Result Diagrams: 02/22/20 10:06 02/22/20 10:06 Additional Labs: Accuchecks 02/22/20 02/21/20 02/21/20 06:02 23:56 17:46 POC Glucose 130 H 109 H 121 H 02/21/20 10:43 POC Glucose 134 H Hospitalist ROS - Review of Systems Constitutional: denies: fever, chills Respiratory: denies: cough, shortness of breath Gastrointestinal: denies: nausea, vomiting, diarrhea Musculoskeletal: reports: back pain (rated as a 5 or 6 out of 10) - Medication Medications: Active Medications Generic Name Dose Route Start Last Admin Trade Name Sharanq PRN Reason Stop Dose Admin Budesonide 0.5 mg 02/10/20 18:30 02/21/20 18:58 Budesonide 0.5 Mg/2 Ml Neb NEB 0.5 mg BID-RT ABRAM Administration Furosemide 40 mg 02/17/20 09:00 02/21/20 08:43 Furosemide 40 Mg/4 Ml Vial SLOW IVP 40 mg DAILY ABRAM Administration Ceftriaxone Sodium 2 gm/ 100 mls @ 200 mls/hr 02/03/20 14:00 02/21/20 13:30 Sodium Chloride IVPB 100 mls Q24HR ABRAM Administration Dextrose/Sodium Chloride 1,000 mls @ 50 mls/hr 02/10/20 08:45 02/22/20 03:08 D5 1/4 Ns IV 1,000 mls .Q20H ABRAM Administration Insulin Human Lispro 0 units 01/31/20 23:37 02/16/20 06:42 Humalog 300 Units/3 Ml Vial SC 2 unit .MILD SLIDING SCALE PRN Administration Mild Correctional Scale Labetalol HCl 20 mg 01/31/20 23:35 02/11/20 10:12 Labetalol Hcl 100 Mg/20 Ml Vial SLOW IVP 20 mg Q4H PRN Administration SBP > 160 use third Nadolol 40 mg 02/17/20 09:00 02/21/20 11:13 Nadolol 40 Mg Tab PO Not Given DAILY ABRAM Nystatin 0 gm 02/02/20 09:00 02/21/20 21:06 Nystatin Powder 15 Gm Bot TOP 1 applic BID ABRAM Administration Ondansetron HCl 4 mg 01/31/20 23:35 02/07/20 21:48 Ondansetron Pf 4 Mg/2 Ml Vial IVP 4 mg Q6H PRN Administration Nausea/Vomiting use 1st Pantoprazole Sodium 40 mg 02/07/20 21:00 02/21/20 21:06 Pantoprazole 40 Mg Vial IVP 40 mg Q12HR ABRAM Administration Sodium Chloride 10 ml 02/07/20 12:15 02/20/20 08:46 Sodium Chloride 0.9% (Pf) 10 Ml Vial FS 10 ml PRN PRN Administration RECONSTITUTION Sodium Chloride 10 ml 02/16/20 09:00 02/21/20 21:06 Flush - Normal Saline 10 Ml Syringe IVF 10 ml Q12HR ABRAM Administration Spironolactone 100 mg 02/17/20 08:00 02/21/20 08:42 Spironolactone 100 Mg Tab PO 100 mg QAM-WM ABRAM Administration - Exam Heart: RRR, no murmur Respiratory: no tachypnea, wheezes Gastrointestinal: non-tender, normal bowel sounds, distended Extremities: 1+ LE edema (edema more prominent on left leg) Psychiatric: normal affect, normal behavior Hosp A/P (1) Ascites Code(s): R18.8 - OTHER ASCITES Status: Acute (2) Cirrhosis Code(s): K74.60 - UNSPECIFIED CIRRHOSIS OF LIVER Status: Chronic Qualifiers: Hepatic cirrhosis type: alcoholic cirrhosis Ascites presence: with ascites Qualified Code(s): K70.31 - Alcoholic cirrhosis of liver with ascites (3) Chronic alcohol use Code(s): Z72.89 - OTHER PROBLEMS RELATED TO LIFESTYLE Status: Chronic (4) Ulcerative colitis Code(s): K51.90 - ULCERATIVE COLITIS, UNSPECIFIED, WITHOUT COMPLICATIONS Status: Chronic Qualifiers: Ulcerative colitis location: unspecified ulcerative colitis location Digestive disease complication type: without complication Qualified Code(s): K51.90 - Ulcerative colitis, unspecified, without complications - Plan * Cirrhosis-liver function has improved some since his admission, and liver tests today showed improvement as well * I spoke with the patient's mother about his condition and the concern about the PleurX catheter. * If they choose Hospice, then we will leave the PleurX catheter in place but if they decide for active care, then will remove it, to prevent risk for inf ection * AFIB with RVR- his heart rate is stable- no anticoagulation * Ulcerative Colitis- Quiescent * Dysphagia- improved-Will remove the DHT today * Acute kidney injury- resolved * Discharge planning is in progress * * The patient was seen and examined and discussed with Ya Rodriguez MS-3. I have updated the plan as above.
[2020-02-22] MEDS: Budesonide 0.5 MG/2 ML NEB NEB SCH ×2 (08:51→18:31)
[2020-02-22] MEDS: Furosemide 40 MG/4 ML VIAL SLOW IVP SCH (09:35)
[2020-02-22] MEDS: Nadolol 40 MG TAB PO SCH (09:35)
[2020-02-22] MEDS: Pantoprazole 40 MG VIAL IVP SCH (09:35)
[2020-02-22] MEDS: Nystatin Powder 15 GM BOT TOP SCH ×2 (09:35→21:10)
[2020-02-22] MEDS: Spironolactone 100 MG TAB PO SCH (09:35)
[2020-02-22 10:46] LABS: #Lymphocytes 0.8 thou/uL (1.20-3.40); #Monocytes 0.5 thou/uL (0.11-0.59); #Neutrophils 5.1 thou/uL (1.40-6.50); %Basophils 0.6 % (0.0-1.0); %Eosinophils 0.5 % (0.0-10.0); %Lymphocytes 11.8 % (21.0-51.0); %Monocytes 8.3 % (0.0-10.0); %Neutrophils 78.7 % (42.0-75.0); Anisocytosis SLIGHT = 6-15 cells (100X) (0-5/hpf); Elliptocytes SLIGHT = 2-5 cells (100X) (0-1/hpf); Hemoglobin 9.3 g/dL (14.0-18.0); Large Platelets SLIGHT; MDiff Complete? YES; Mean Corpuscular HGB CONC 32.6 g/dL (32.0-36.0); Mean Corpuscular Hemoglobin 31.9 pg (27.0-31.0); Mean Corpuscular Volume 97.8 fL (78.0-98.0); Mean Platelet Volume 12.6 fL (7.4-10.4); Platelet Count 84 thou/uL (130-400); Platelet Morphology Comment Appears Decreased; RBC Distribution Width 17.2 % (11.5-14.5); Red Blood Cell (RBC) Count 2.91 mill/uL (4.70-6.10); White Blood Cell (WBC) Count 6.4 thou/uL (4.8-10.8)
[2020-02-22 10:57] LABS: ALT (SGPT) 25 U/L (8-55); AST (SGOT) 34 U/L (5-34); Albumin 2.4 g/dL (3.5-5.0); Alkaline Phosphatase 275 U/L (40-110); Anion Gap 10 mmol/L (10-20); BUN (Urea Nitrogen) 13 mg/dL (8.9-20.6); Bilirubin, Total 1.3 mg/dL (0.2-1.2); Calc. Creatinine Clearance 248 mL/min (70-130); Calcium 8.3 mg/dL (7.8-10.44); Carbon Dioxide 36 mmol/L (22-29); Chloride 96 mmol/L (98-107); Estimated GFR-MDRD Greater than 90; Globulin 2.8 g/dL (2.4-3.5); Glucose 143 mg/dL (70-105); Potassium 3.7 mmol/L (3.5-5.1); Protein, Total 5.2 g/dL (6.0-8.3); Sodium 138 mmol/L (136-145)
[2020-02-22 11:50] VITALS: BMI 30.4
--- NOTE | 2020-02-22 18:01 | PRG ---
DATE OF SERVICE: 02/22/2020 REASON FOR CONSULTATION: Cirrhosis, ulcerative colitis. SUBJECTIVE: The speech pathologist was able to adequately perform a bedside swallow exam yesterday, which showed that the patient did have an intact swallow and was able to tolerate fairly normal food consistencies. As such, the modified barium swallow study was canceled at that time. Since then, the patient has been able to maintain intake via mouth without any significant difficulties, although per chart review, he has been unable to tolerate much in terms of adequate nutrition. Today, he states that he is doing well without further problems or complaints. He does have some mild back pain that has been present during the course of this hospitalization, but otherwise denies any additional pain. Currently, he denies any nausea, vomiting, fevers, chills, hematemesis, melena, or hematochezia. OBJECTIVE: VITAL SIGNS: Temperature 98.6, pulse 73, blood pressure 101/69, respiratory rate 19, saturating 92% on room air. GENERAL: The patient is lying in bed, in no acute distress. Alert and oriented x4. RESPIRATORY: Clear to auscultation bilaterally in all lung bedoya. CARDIOVASCULAR: Regular rate and rhythm. ABDOMEN: Normoactive bowel sounds. Soft, nontender. [id number] abdominal distention. EXTREMITIES: 1+ bilateral lower extremity edema extending up to mid alvares. LABORATORY DATA: CBC with a white blood cell count of 6.4, hemoglobin 9.3, hematocrit 28.5, platelets 84. Chemistry with a sodium of 138, potassium 3.7, chloride 96, CO2 of 36, BUN 13, creatinine 0.55, glucose 143. AST 34, ALT 25, alkaline phosphatase 275, total bilirubin 1.3. IMAGING DATA: No current studies are available for review. IMPRESSION: 1. Oropharyngeal dysphagia, now improving with clearance via bedside swallow study. Dobbhoff has been removed. We would encourage oral feeds. 2. Alcoholic cirrhosis. 3. Abdominal ascites, now status post PleurX catheter for hospice purposes. 4. Respiratory failure, resolving. 5. Ulcerative colitis, quiescent while off any immunosuppression. RECOMMENDATIONS: 1. Would continue high-protein low-sodium diet as part of cirrhosis regimen and to prevent further formation of ascites/lower extremity edema. 2. We will continue with spironolactone and furosemide as part of treatment for ascites and lower extremity edema. 3. Continue nadolol for atrial fibrillation (he is not currently taking this medication for esophageal varices). 4. Strongly encourage continued alcohol abstinence. 5. We will continue to monitor the patient in the hospice setting, especially with the PleurX catheter in place, which are prone to infections and peritonitis. If the patient's clinical status improves to the point where he is being taken off hospice, I would recommend removal of this PleurX catheter. 6. Would not start the patient's immunosuppression for ulcerative colitis at this time given his severely debilitated state and lack of symptoms associated with an ulcerative colitis flare. At this time, we have no further recommendations with the patient to be discharged to home under the auspices of hospice care. Please call with any additional questions. Job ID: [id number]
[2020-02-23] MEDS: D5 1/4 NS 1,000 ML IV SCH ×2 (06:02→19:17)
[2020-02-23] MEDS: Budesonide 0.5 MG/2 ML NEB NEB SCH ×2 (07:02→18:37)
--- NOTE | 2020-02-23 07:44 | PDOC.HOSPP ---
- Subjective Encounter Date: 02/23/20 Encounter Time: 08:10 Subjective: Mr. Cesar is a 39 y/o male being followed for cirrhosis, deconditioning, and encephalopathy. Patient was seen and examined this morning. Patient stated he didn't sleep well last night, but has been trying to get some naps in this morning. Patient stated his back pain has improved some. Patient stated he has been able to tolerate his diet well and his appetite has been ok. - Objective Vital Signs & Weight: Vital Signs (12 hours) Temp Pulse Resp BP Pulse Ox 02/23/20 04:00 97.7 F 75 16 102/71 93 L 02/22/20 20:00 97.8 F 73 22 H 102/70 93 L Weight Admit Weight 221 lb 9.033 oz Weight 213 lb Most Recent Monitor Data Heart Rate from ECG 82 NIBP 111/83 NIBP BP-Mean 92 Respiration from ECG 23 SpO2 99 I&O: 02/22/20 02/23/20 02/24/20 06:59 06:59 06:59 Intake Total 1960 1680 Output Total 450 2000 Balance 1510 -320 Result Diagrams: 02/22/20 10:06 02/22/20 10:06 Additional Labs: Accuchecks 02/23/20 02/22/20 02/22/20 06:00 23:48 20:56 POC Glucose 99 124 H 138 H 02/22/20 02/22/20 17:06 12:05 POC Glucose 88 122 H Hospitalist ROS - Review of Systems Constitutional: denies: fever, chills Respiratory: denies: cough, shortness of breath, SOB with excertion Cardiovascular: denies: chest pain, palpitations Gastrointestinal: denies: nausea, vomiting, diarrhea Musculoskeletal: reports: back pain. denies: neck pain, shoulder pain, arm pain, hand pain, foot pain Neurological: reports: numbness (in feeet) - Medication Medications: Active Medications Generic Name Dose Route Start Last Admin Trade Name Freq PRN Reason Stop Dose Admin Budesonide 0.5 mg 02/10/20 18:30 02/23/20 07:02 Budesonide 0.5 Mg/2 Ml Neb NEB 0.5 mg BID-RT ABRAM Administration Dextrose/Sodium Chloride 1,000 mls @ 50 mls/hr 02/10/20 08:45 02/23/20 06:02 D5 1/4 Ns IV 1,000 mls .Q20H ABRAM Administration Insulin Human Lispro 0 units 01/31/20 23:37 02/16/20 06:42 Humalog 300 Units/3 Ml Vial SC 2 unit .MILD SLIDING SCALE PRN Administration Mild Correctional Scale Labetalol HCl 20 mg 01/31/20 23:35 02/11/20 10:12 Labetalol Hcl 100 Mg/20 Ml Vial SLOW IVP 20 mg Q4H PRN Administration SBP > 160 use third Levofloxacin 500 mg 02/23/20 06:00 02/23/20 06:01 Levofloxacin 500 Mg Tab PO 500 mg 0600 ABRAM Administration Nadolol 40 mg 02/17/20 09:00 02/22/20 09:35 Nadolol 40 Mg Tab PO 40 mg DAILY ABRAM Administration Nystatin 0 gm 02/02/20 09:00 02/22/20 21:10 Nystatin Powder 15 Gm Bot TOP 1 applic BID ABRAM Administration Ondansetron HCl 4 mg 01/31/20 23:35 02/07/20 21:48 Ondansetron Pf 4 Mg/2 Ml Vial IVP 4 mg Q6H PRN Administration Nausea/Vomiting use 1st Pantoprazole Sodium 40 mg 02/22/20 21:00 02/22/20 21:10 Pantoprazole 40 Mg Tab PO 40 mg BID ABRAM Administration Sodium Chloride 10 ml 02/07/20 12:15 02/20/20 08:46 Sodium Chloride 0.9% (Pf) 10 Ml Vial FS 10 ml PRN PRN Administration RECONSTITUTION Sodium Chloride 10 ml 02/16/20 09:00 02/22/20 21:10 Flush - Normal Saline 10 Ml Syringe IVF 10 ml Q12HR ABRAM Administration Spironolactone 100 mg 02/17/20 08:00 02/22/20 09:35 Spironolactone 100 Mg Tab PO 100 mg QAM-WM ABRAM Administration - Exam General Appearance: NAD, awake alert Heart: RRR, no murmur Respiratory: CTAB, no wheezes, no rales, no ronchi Gastrointestinal: non-tender, normal bowel sounds, distended Extremities: 2+ LE edema (on left left, right leg has minimal edema) Psychiatric: normal affect, normal behavior, A&O x 3 Hosp A/P (1) Ascites Code(s): R18.8 - OTHER ASCITES Status: Acute (2) Cirrhosis Code(s): K74.60 - UNSPECIFIED CIRRHOSIS OF LIVER Status: Chronic Qualifiers: Hepatic cirrhosis type: alcoholic cirrhosis Ascites presence: with ascites Qualified Code(s): K70.31 - Alcoholic cirrhosis of liver with ascites (3) Chronic alcohol use Code(s): Z72.89 - OTHER PROBLEMS RELATED TO LIFESTYLE Status: Chronic (4) Ulcerative colitis Code(s): K51.90 - ULCERATIVE COLITIS, UNSPECIFIED, WITHOUT COMPLICATIONS Status: Chronic Qualifiers: Ulcerative colitis location: unspecified ulcerative colitis location Di gestive disease complication type: without complication Qualified Code(s): K51.90 - Ulcerative colitis, unspecified, without complications - Plan * Cirrhosis-liver function has improved some since his admission, and liver tests today showed improvement as well * AFIB with RVR- his heart rate is stable- no anticoagulation * Ulcerative Colitis- Quiescent * Dysphagia- he continues to tolerate an oral diet. * Acute kidney injury- resolved * He is stable for transfer to snf * * The patient was seen and examined and discussed with Ya Rodriguez MS-3. Agree with above. Patient is clinically improving, albeit slowly. He is more alert and conversant. He is oriented X4. His exam is unchanged. He clinically however has symptoms of major depression, and will start an antidepressant. The patient is agreeable to this. He is stable for detention placement.
--- NOTE | 2020-02-23 08:14 | EKG ---
Test Reason : LAKSHMI Blood Pressure : / mmHG Vent. Rate : 053 BPM Atrial Rate : 053 BPM P-R Int : 132 ms QRS Dur : 080 ms QT Int : 574 ms P-R-T Axes : 005 006 049 degrees QTc Int : 538 ms Sinus bradycardia Cannot rule out Inferior infarct , age undetermined Cannot rule out Anterior infarct (cited on or before 12-FEB-2020) Prolonged QT Abnormal ECG When compared with ECG of 12-FEB-2020 18:32, Premature supraventricular complexes are no longer Present Vent. rate has decreased BY 56 BPM Minimal criteria for Inferior infarct are now Present Nonspecific T wave abnormality, worse in Lateral leads Confirmed by HALEY BURGOS (2) on 02/23/2020 8:13:43 AM Referred By: JIM Confirmed By:HALEY BURGOS
[2020-02-23] MEDS: Spironolactone 100 MG TAB PO SCH (09:23)
[2020-02-23] MEDS: Saccharomyces boulardii 250 MG CAP PO SCH (09:23)
[2020-02-23] MEDS: Furosemide 40 MG TAB PO SCH (09:25)
[2020-02-23] MEDS: Nadolol 40 MG TAB PO SCH (09:30)
[2020-02-23] MEDS: Nystatin Powder 15 GM BOT TOP SCH ×2 (09:32→22:10)
--- NOTE | 2020-02-23 10:59 | PDOC.PULCC ---
CCU Progress Note: Subj/Obj - Objective Allergies/Adverse Reactions: Allergies Allergy/AdvReac Type Severity Reaction Status Date / Time No Known Allergies Allergy Verified 01/08/20 21:49 Medications: Current Medications Acetaminophen (Acetaminophen 325 Mg/10.15 Ml Udcup) 650 mg PO Q6H PRN PRN Reason: Fever > 101 or Mild Pain Acetaminophen (Acetaminophen 325 Mg Suppository) 650 mg LA Q6H PRN PRN Reason: Fever > 101 or Mild Pain Al Hydroxide/Mg Hydroxide (Mag-Al 1200 Mg/1200 Mg/30 Ml Udcup) 30 ml PO Q8H PRN PRN Reason: Indigestion Bisacodyl (Bisacodyl 10 Mg Supp) 10 mg LA DAILYPRN PRN PRN Reason: Constipation Budesonide (Budesonide 0.5 Mg/2 Ml Neb) 0.5 mg NEB BID-RT [facility] Last Admin: 02/23/20 07:02 Dose: 0.5 mg Documented by: Furosemide (Furosemide 40 Mg Tab) 40 mg PO DAILY-[facility] Last Admin: 02/23/20 09:25 Dose: 40 mg Documented by: Hydralazine HCl (Hydralazine 20 Mg/Ml Vial) 10 mg SLOW IVP Q6H PRN PRN Reason: SBP GREATER THAN 160 Promethazine HCl 12.5 mg/ (Sodium Chloride) 50.5 mls @ 202 mls/hr IVPB Q6H PRN PRN Reason: Nausea/vomiting use second Dextrose/Sodium Chloride (D5 1/4 Ns) 1,000 mls @ 50 mls/hr IV .Q20H [facility] Last Admin: 02/23/20 06:02 Dose: 1,000 mls Documented by: Insulin Human Lispro (Humalog 300 Units/3 Ml Vial) 0 units SC .MILD SLIDING SCALE PRN PRN Reason: Mild Correctional Scale Last Admin: 02/16/20 06:42 Dose: 2 unit Documented by: Labetalol HCl (Labetalol Hcl 100 Mg/20 Ml Vial) 20 mg SLOW IVP Q4H PRN PRN Reason: SBP > 160 use third Last Admin: 02/11/20 10:12 Dose: 20 mg Documented by: Levofloxacin (Levofloxacin 500 Mg Tab) 500 mg PO 0600 [facility] Last Admin: 02/23/20 06:01 Dose: 500 mg Documented by: Magnesium Hydroxide (Milk Of Magnesia 30 Ml Udcup) 30 ml PO Q8H PRN PRN Reason: Constipation Miscellaneous Medication (Electrolyte Replacement Protoc 1 Each Each) 1 each FS ASDIR [facility] Nadolol (Nadolol 40 Mg Tab) 40 mg PO DAILY [facility] Last Admin: 02/23/20 09:30 Dose: 40 mg Documented by: Nystatin (Nystatin Powder 15 Gm Bot) 0 gm TOP BID [facility] Last Admin: 02/23/20 09:32 Dose: Not Given Documented by: Ondansetron HCl (Ondansetron Pf 4 Mg/2 Ml Vial) 4 mg IVP Q6H PRN PRN Reason: Nausea/Vomiting use 1st Last Admin: 02/07/20 21:48 Dose: 4 mg Documented by: Pantoprazole Sodium (Pantoprazole 40 Mg Tab) 40 mg PO BID [facility] Last Admin: 02/23/20 09:24 Dose: 40 mg Documented by: Saccharomyces Boulardii (Saccharomyces Boulardii 250 Mg Cap) 250 mg PO DAILY [facility] Last Admin: 02/23/20 09:23 Dose: 250 mg Documented by: Sertraline HCl (Sertraline Hcl 100 Mg Tab) 50 mg PO DAILY [facility] Last Admin: 02/23/20 09:25 Dose: 50 mg Documented by: Sodium Chloride (Sodium Chloride 0.9% (Pf) 10 Ml Vial) 10 ml FS PRN PRN PRN Reason: RECONSTITUTION Last Admin: 02/20/20 08:46 Dose: 10 ml Documented by: Sodium Chloride (Flush - Normal Saline 10 Ml Syringe) 10 ml IVF Q12HR [facility] Last Admin: 02/23/20 09:32 Dose: 10 ml Documented by: Sodium Chloride (Flush - Normal Saline 10 Ml Syringe) 10 ml IVF PRN PRN PRN Reason: Saline Flush Spironolactone (Spironolactone 100 Mg Tab) 100 mg PO QAM-WM [facility] Last Admin: 02/23/20 09:23 Dose: 100 mg Documented by: Vital Signs and I&O: Vital Signs Temp 98.0 F 02/23/20 07:24 Pulse 73 02/23/20 07:24 Resp 17 02/23/20 07:24 BP 108/74 02/23/20 07:24 Pulse Ox 93 L 02/23/20 07:24 Intake & Output 02/22/20 02/23/20 02/23/20 18:59 06:59 18:59 Intake Total 990 690 Output Total 1500 500 Balance -510 190 Weight 211 lb 13.828 oz 213 lb Intake: Intake, IV Amount 600 450 Oral 240 240 Tube Feeding 120 Tube Irrigant 30 Output: Urine 500 Output, Hernandez 1500 Other: Voiding Method Indwelling Catheter Indwelling Catheter Indwelling Catheter Vent Setting: % Fraction of Inspired Oxygen 28 (FIO2) 02/01/20 08:58 Transfuse Blood Prods: specify SEEPHYS 02/02/20 07:51 Transfuse Blood Prods: specify SEEPHYS 02/07/20 03:30 Blood Gas-Arterial AM RUN 02/09/20 03:30 Blood Gas-Arterial AM RUN 02/10/20 03:30 Blood Gas-Arterial AM RUN 02/11/20 03:30 Blood Gas-Arterial AM RUN 02/12/20 03:30 Blood Gas-Arterial AM RUN 02/13/20 03:30 Blood Gas-Arterial AM RUN 02/14/20 03:30 Blood Gas-Arterial AM RUN 02/15/20 03:30 Blood Gas-Arterial AM RUN 02/16/20 03:30 Blood Gas-Arterial AM RUN 02/17/20 03:30 Blood Gas-Arterial AM RUN 02/18/20 03:30 Blood Gas-Arterial AM RUN 02/19/20 03:30 Blood Gas-Arterial AM RUN CCU Progress Note: Data - Labs Result Diagrams: 02/22/20 10:06 02/22/20 10:06 Lab results: Laboratory Results 02/21/20 02/21/20 02/22/20 17:46 23:56 06:02 WBC RBC Hgb Hct MCV MCH MCHC RDW Plt Count MPV Neutrophils % Neutrophils % (Manual) Lymphocytes % Monocytes % Eosinophils % Basophils % Neutrophils # Lymphocytes # Monocytes # Eosinophils # Basophils # Large Platelets Plt Morphology Comment Anisocytosis Elliptocytes Sodium Potassium Chloride Carbon Dioxide Anion Gap BUN Creatinine Estimated GFR (MDRD) Glucose POC Glucose 121 H 109 H 130 H Calcium Total Bilirubin AST ALT Alkaline Phosphatase Serum Total Protein Albumin Globulin Albumin/Globulin Ratio 02/22/20 02/22/20 02/22/20 10:06 10:06 12:05 WBC 6.4 RBC 2.91 L Hgb 9.3 L Hct 28.5 L MCV 97.8 MCH 31.9 H MCHC 32.6 RDW 17.2 H Plt Count 84 L MPV 12.6 H Neutrophils % 78.7 H Neutrophils % (Manual) Not Reportable Lymphocytes % 11.8 L Monocytes % 8.3 Eosinophils % 0.5 Basophils % 0.6 Neutrophils # 5.1 Lymphocytes # 0.8 L Monocytes # 0.5 Eosinophils # 0.0 Basophils # 0.0 Large Platelets SLIGHT Plt Morphology Comment Appears Decreased L Anisocytosis SLIGHT = 6-15 cells Elliptocytes SLIGHT = 2-5 cells Sodium 138 Potassium 3.7 Chloride 96 L Carbon Dioxide 36 H Anion Gap 10 BUN 13 Creatinine 0.55 L Estimated GFR (MDRD) Greater than 90 Glucose 143 H POC Glucose 122 H Calcium 8.3 Total Bilirubin 1.3 H AST 34 ALT 25 Alkaline Phosphatase 275 H Serum Total Protein 5.2 L Albumin 2.4 L Globulin 2.8 Albumin/Globulin Ratio 0.9 L 02/22/20 02/22/20 02/22/20 17:06 20:56 23:48 WBC RBC Hgb Hct MCV MCH MCHC RDW Plt Count MPV Neutrophils % Neutrophils % (Manual) Lymphocytes % Monocytes % Eosinophils % Basophils % Neutrophils # Lymphocytes # Monocytes # Eosinophils # Basophils # Large Platelets Plt Morphology Comment Anisocytosis Elliptocytes Sodium Potassium Chloride Carbon Dioxide Anion Gap BUN Creatinine Estimated GFR (MDRD) Glucose POC Glucose 88 138 H 124 H Calcium Total Bilirubin AST ALT Alkaline Phosphatase Serum Total Protein Albumin Globulin Albumin/Globulin Ratio 02/23/20 06:00 WBC RBC Hgb Hct MCV MCH MCHC RDW Plt Count MPV Neutrophils % Neutrophils % (Manual) Lymphocytes % Monocytes % Eosinophils % Basophils % Neutrophils # Lymphocytes # Monocytes # Eosinophils # Basophils # Large Platelets Plt Morphology Comment Anisocytosis Elliptocytes Sodium Potassium Chloride Carbon Dioxide Anion Gap BUN Creatinine Estimated GFR (MDRD) Glucose POC Glucose 99 Calcium Total Bilirubin AST ALT Alkaline Phosphatase Serum Total Protein Albumin Globulin Albumin/Globulin Ratio - ABG Interpretation ABG Results: ABG pH 7.29 (7.35-7.45) L 02/17/20 23:22 ABG pCO2 71.1 mmHg (35.0-45.0) H* 02/17/20 23:22 ABG Base Excess 5.0 mEq/L (-2.0 to +3.0) H 02/17/20 23:22
[2020-02-23] MEDS: Ondansetron PF 4 MG/2 ML Vial IVP PRN (13:33)
--- NOTE | 2020-02-23 16:11 | PDOC.PALPN ---
Palliative Progress Note - Subjective Awake, alert, pronounced weakness, continues to require assistance for ADL. Oral intake, but poor despite speech pathologist evaluation showing an intact swallow and toleration of food. PT services engaged. - Objective Vital Signs: Vital Signs - Most Recent Temp Pulse Resp BP Pulse Ox 97.5 F L 64 18 96/61 64 L 02/23/20 12:23 02/23/20 12:23 02/23/20 12:23 02/23/20 12:23 02/23/20 12:23 - Physical Exam Constitutional: ill appearing HEENT: EOMI, moist MMs, PERRLA Respiratory: clear to auscultation bilateral, no rales, no rhonchi Cardiovascular: RRR Gastrointestinal: soft, non-tender Deviation from normal: Distended, plurex cath Genitourinary: incontinent Musculoskeletal: edema present, diffuse muscle atrophy Neurology: moves all 4 limbs, no focal deficits Skin: cap refill <2 seconds Psychiatric: A&O x 3, flat affect - Assessment (1) Acute respiratory failure with hypoxia Code(s): J96.01 - ACUTE RESPIRATORY FAILURE WITH HYPOXIA Current Visit: Yes Status: Acute (2) Hepatic encephalopathy Code(s): K72.90 - HEPATIC FAILURE, UNSPECIFIED WITHOUT COMA Current Visit: Yes Status: Acute (3) Sepsis Code(s): A41.9 - SEPSIS, UNSPECIFIED ORGANISM Current Visit: Yes Status: Acute Qualifiers: Sepsis type: Escherichia coli Sepsis acute organ dysfunction status: with acute organ dysfunction Severe sepsis acute organ dysfunction type: acute liver failure Severe sepsis shock status: with septic shock (4) Cirrhosis Code(s): K74.60 - UNSPECIFIED CIRRHOSIS OF LIVER Current Visit: Yes Status: Chronic Qualifiers: Hepatic cirrhosis type: alcoholic cirrhosis Ascites presence: with ascites Qualified Code(s): K70.31 - Alcoholic cirrhosis of liver with ascites (5) Coagulopathy Current Visit: Yes Status: Chronic (6) Palliative care encounter Code(s): Z51.5 - ENCOUNTER FOR PALLIATIVE CARE Current Visit: No Status: Acute - Plan Plan: Decision has been made to transition to Skilled setting at [facility] and continue with PT. Hopeful patient will participate, encouraged and discussed importance of nutrition paired with full involvement with therapies. Hopeful to continue to improve with return to home setting. Encouraged patient Mother Margarita to seek [facility] as well as other family members and patient significant other. Information on services provided. Reviewed with patient that he was provided with numbers of gentlemen in AA who would be happy to visit with him while still in the hospital as well as follow up in his community at discharge with AA meetings to assist in alcohol abstinence. Communicated with CM, patient approved for transfer to Swing bed at [place]. As Per GI plurex will be removed secondary to risk of infection. [45] minutes spent on this encounter with >50% of the time in counseling and coordination of care. - ROS Constitutional: alert, loss appetite, malaise, weakness ENT: other (Denies difficulity swallowing) Respiratory: other (Negative for cough) Gastrointestinal: other (Denies nausea, vomiting, constipation) Musculoskeletal: back pain Neurological: other (Negative for numbness, confusion)
[2020-02-24] MEDS: Budesonide 0.5 MG/2 ML NEB NEB SCH (07:05)
--- NOTE | 2020-02-24 07:35 | PDOC.HOSPP ---
- Subjective Encounter Date: 02/24/20 Encounter Time: 08:10 Subjective: Mr. Cesar is a 39 year old male being followed for cirrhosis, deconditioning, and encephalopathy. Patient was seen and examined this morning. He endorsed continued back pain rated as a 5 out of 10. Patient said he had trouble sleeping, but overall he is "alright." Patient stated he has been able to take in liquids and solids PO, but gets full quickly which limits his intake. - Objective Vital Signs & Weight: Vital Signs (12 hours) Temp Pulse Resp BP Pulse Ox 02/24/20 07:05 62 12 02/24/20 04:00 97.6 F 63 14 98/56 L 96 02/24/20 01:44 97 02/24/20 01:16 16 92 L 02/23/20 20:00 97.6 F 60 18 102/62 95 Weight Admit Weight 221 lb 9.033 oz Weight 212 lb Most Recent Monitor Data Heart Rate from ECG 82 NIBP 111/83 NIBP BP-Mean 92 Respiration from ECG 23 SpO2 99 I&O: 02/23/20 02/24/20 02/25/20 06:59 06:59 06:59 Intake Total 1680 1470 Output Total 2000 700 Balance -320 770 Result Diagrams: 02/22/20 10:06 02/22/20 10:06 Additional Labs: Accuchecks 02/24/20 02/24/20 02/23/20 05:36 00:18 16:34 POC Glucose 84 83 95 02/23/20 11:13 POC Glucose 91 Hospitalist ROS - Review of Systems Eyes: denies: vision change Respiratory: denies: cough, shortness of breath Cardiovascular: denies: chest pain, palpitations Gastrointestinal: denies: nausea, vomiting, diarrhea, constipation Musculoskeletal: reports: back pain, leg pain (stated a pressure sensation in left calf). denies: neck pain, shoulder pain, arm pain, foot pain - Medication Medications: Active Medications Generic Name Dose Route Start Last Admin Trade Name Freq PRN Reason Stop Dose Admin Budesonide 0.5 mg 02/10/20 18:30 02/24/20 07:05 Budesonide 0.5 Mg/2 Ml Neb NEB 0.5 mg BID-RT [facility] Administration Furosemide 40 mg 02/23/20 07:30 02/23/20 09:25 Furosemide 40 Mg Tab PO 40 mg DAILY-AC [facility] Administration Dextrose/Sodium Chloride 1,000 mls @ 50 mls/hr 02/10/20 08:45 02/23/20 19:17 D5 1/4 Ns IV Not Given .Q20H [facility] Insulin Human Lispro 0 units 01/31/20 23:37 02/16/20 06:42 Humalog 300 Units/3 Ml Vial SC 2 unit .MILD SLIDING SCALE PRN Administration Mild Correctional Scale Labetalol HCl 20 mg 01/31/20 23:35 02/11/20 10:12 Labetalol Hcl 100 Mg/20 Ml Vial SLOW IVP 20 mg Q4H PRN Administration SBP > 160 use third Levofloxacin 500 mg 02/23/20 06:00 02/24/20 06:09 Levofloxacin 500 Mg Tab PO 500 mg 0600 [facility] Administration Nadolol 40 mg 02/17/20 09:00 02/23/20 09:30 Nadolol 40 Mg Tab PO 40 mg DAILY [facility] Administration Nystatin 0 gm 02/02/20 09:00 02/23/20 22:10 Nystatin Powder 15 Gm Bot TOP Not Given BID [facility] Ondansetron HCl 4 mg 01/31/20 23:35 02/23/20 13:33 Ondansetron Pf 4 Mg/2 Ml Vial IVP 4 mg Q6H PRN Administration Nausea/Vomiting use 1st Pantoprazole Sodium 40 mg 02/22/20 21:00 02/23/20 22:11 Pantoprazole 40 Mg Tab PO 40 mg BID [facility] Administration Saccharomyces Boulardii 250 mg 02/23/20 09:00 02/23/20 09:23 Saccharomyces Boulardii 250 Mg Cap PO 250 mg DAILY [facility] Administration Sertraline HCl 50 mg 02/23/20 09:00 02/23/20 09:25 Sertraline Hcl 100 Mg Tab PO 50 mg DAILY [facility] Administration Sodium Chloride 10 ml 02/07/20 12:15 02/20/20 08:46 Sodium Chloride 0.9% (Pf) 10 Ml Vial FS 10 ml PRN PRN Administration RECONSTITUTION Sodium Chloride 10 ml 02/16/20 09:00 02/23/20 22:11 Flush - Normal Saline 10 Ml Syringe IVF 10 ml Q12HR [facility] Administration Spironolactone 100 mg 02/17/20 08:00 02/23/20 09:23 Spironolactone 100 Mg Tab PO 100 mg QAM-WM [facility] Administration - Exam General Appearance: NAD, awake alert Heart: RRR, no murmur, no gallops, no rubs Respiratory: CTAB, no wheezes Gastrointestinal: non-tender, normal bowel sounds, distended Extremities: 1+ LE edema (edema of left calf- left sided edema is greater than t hat of the right) Musculoskeletal: generalized weakness Psychiatric: normal behavior, A&O x 3 Hosp A/P (1) Ascites Code(s): R18.8 - OTHER ASCITES Status: Acute (2) Cirrhosis Code(s): K74.60 - UNSPECIFIED CIRRHOSIS OF LIVER Status: Chronic Qualifiers: Hepatic cirrhosis type: alcoholic cirrhosis Ascites presence: with ascites Qualified Code(s): K70.31 - Alcoholic cirrhosis of liver with ascites (3) Chronic alcohol use Code(s): Z72.89 - OTHER PROBLEMS RELATED TO LIFESTYLE Status: Chronic (4) Ulcerative colitis Code(s): K51.90 - ULCERATIVE COLITIS, UNSPECIFIED, WITHOUT COMPLICATIONS Sta tus: Chronic Qualifiers: Ulcerative colitis location: unspecified ulcerative colitis location Digestive disease complication type: without complication Qualified Code(s): K51.90 - Ulcerative colitis, unspecified, without complications - Plan * Cirrhosis-liver function has improved some since his admission * AFIB with RVR- his heart rate has been stable- no anticoagulation * Ulcerative Colitis- Quiescent * Dysphagia- he continues to tolerate an oral diet: both solids and liquids * Acute kidney injury- resolved * AUD- palliative care discussed attending AA meetings * Patient is [facility] * * The patient was seen and examined and discussed with Ya Rodriguez MS-3. Agree with above. Patient is clinically improving, Patient was noted however to have swelling which is more prominent in the left lower extremity than the right, he now noted some vague soreness there. Will check a lower extremity venous doppler to rule out DVT. Discussed with the care team as well.
[2020-02-24] MEDS: Furosemide 40 MG TAB PO SCH ×2 (08:57→10:26)
[2020-02-24] MEDS: Spironolactone 100 MG TAB PO SCH ×2 (08:58→10:26)
[2020-02-24] MEDS: Nystatin Powder 15 GM BOT TOP SCH (08:58)
[2020-02-24] MEDS: Nadolol 40 MG TAB PO SCH ×2 (08:58→10:26)
[2020-02-24] MEDS: Saccharomyces boulardii 250 MG CAP PO SCH (08:59)
--- NOTE | 2020-02-24 10:59 | ULT ---
EXAM: Left lower extremity venous Doppler US HISTORY: left lower extremity edema and pain FINDINGS: Grayscale, color-flow, Doppler evaluation, spectral analysis of the left lower extremity venous struc tures is performed with 2-D imaging. The left common femoral, superficial femoral, popliteal, posterior tibial, proximal greater saphenous and profunda femoral veins are imaged. There is normal luminal compressibility, flow, and augmentation the visualized deep venous structures of the left lower extremity. IMPRESSION: No evidence of a deep vein thrombosis in the left lower extremity.
--- NOTE | 2020-02-24 11:17 | PDOC.BPN ---
- Brief Progress Note Encounter Date: 02/24/20 Encounter Time: 11:17 Venous doppler wsa negative for DVT. He is cleared for discharge.
[2020-02-24 17:17] VITALS: BP 104/70; TEMP 98.3
[2020-02-24] MEDS: D5 1/4 NS 1,000 ML IV SCH (17:34)
--- NOTE | 2020-02-27 07:30 | DIS ---
DATE OF ADMISSION: 01/31/2020 DATE OF DISCHARGE: 02/24/2020 DISCHARGE DISPOSITION: [facility]. DISCHARGE DIAGNOSES: 1. Escherichia coli sepsis with septic shock. 2. Acute respiratory failure secondary to #1. 3. Alcoholism. 4. Cirrhosis secondary to alcoholism. 5. Decompensated cirrhosis. 6. History of ulcerative colitis, on immunosuppressive therapy. 7. Acute kidney injury, resolved. 8. Depression. 9. Severe deconditioning. 10. Dysphagia. 11. Refractory ascites. DISCHARGE MEDICATIONS: Include: 1. Zoloft 50 mg p.o. daily. 2. Pulmicort nebs twice a day. 3. Pantoprazole 40 mg p.o. b.i.d. 4. Levaquin 500 mg p.o. daily. 5. Lasix 40 mg p.o. daily. 6. Folic acid 1 mg p.o. daily. 7. Florastor 250 mg p.o. daily. 8. Nadolol 40 mg p.o. daily. 9. Aldactone 100 mg p.o. daily. IMAGING DONE DURING THE HOSPITAL STAY: The patient had a CT scan of the brain on initial presentation, which was negative for any acute intracranial process. The patient had a CT scan of the abdomen demonstrating [id number] volume ascites and some nonspecific bowel wall thickening. The patient had a CT angiogram of the chest, which was negative for any filling defects. There was evidence of a resolved left lower lobe pulmonary embolism, bibasilar atelectasis or possible consolidation, and prominent ascites. The patient had large volume paracentesis on 02/01 with removal of 4 L of fluid. A repeat large volume paracentesis on 02/03 with removal of 8 L of fluid. Repeat large volume paracentesis on 02/06 with removal of 6 L of fluid and a repeat large volume paracentesis on 02/14 with removal of 4 L of fluid and the patient had the placement of a PleurX catheter on 02/18/2020. CODE STATUS: DNAR. ALLERGIES: NO KNOWN DRUG ALLERGIES. HOSPITAL COURSE: Mr. Cesar is a pleasant 39-year-old gentleman who has a history of alcoholism and cirrhosis secondary to this. He also has a history of ulcerative colitis. He was recently admitted to our facility for sepsis and diarrhea. He was treated and discharged home. He had followed up with Dr. Angelo in the outpatient setting. Studies for opportunistic infections were negative. The patient presented again with very similar symptoms. He had presented with altered mental status and was hypotensive with an initial blood pressure 40/30. He had to be intubated in the field. There was evidence of possible dark tarry stools as well. He was admitted to the ICU, started on empiric IV antibiotics. He was evaluated by the Critical Care Team as well as GI and ID as well. He was found to have E coli sepsis. The source likely a GI source. There was no obvious evidence of SBP. He was eventually transitioned from meropenem to Rocephin and Zosyn. His hospital stay was complicated by a long stay in the ICU where he remained on the ventilator for several days. There was difficulty weaning the patient due to the large volume of ascites. He developed a refractory ascites and initially had an elevated MELD score. He had to undergo 4 separate large volume paracentesis as mentioned above and ultimately due to the concern for very poor prognosis, a PleurX catheter was placed. During this time, the patient was considering hospice care. However, also the patient developed severe dysphagia due to oropharyngeal muscle weakness and temporarily had to have a Dobhoff tube placed for nutritional support. With the nutritional support, and after he was weaned from the ventilator, he slowly began to improve slightly. His MELD score began to decrease down to approximately 13, which was a lot less than half of what it was on admission. These changes were discussed with the patient's family and the patient's mother. They were informed that should he decide to not go on hospice that the PleurX catheter should be removed due to the risk of infection and peritonitis. At the time of discharge, this was not fully decided by the family, but these instructions were relayed to both the patient and the patient's mother. The patient had removal of the Dobhoff tube and was able to tolerate a pureed diet and was starting to undergo physical therapy. He also had significant underlying depression and was started on Zoloft and has subsequently [facility] in [place]. Job ID: [id number]
== END 2020-02-24 16:35 | DRG 870 ==
LOC: ERS 21:08 → CCU 21:10 → IMCU/EMU 02-10 20:33 → 2NO 02-15 19:53 → IMCU/EMU 02-17 23:57 → 2NO 02-19 19:54
PROVIDERS: ADMIT Internal Medicine; ATTEND Internal Medicine
PROC: 5A1955Z Respiratory Ventilation, Greater than 96 Consecutive Hours (ICD-10-PCS; principal; 2020-01-31)
PROC: 02HV33Z Insertion of Infusion Device into Superior Vena Cava, Percutaneous Approach (ICD-10-PCS; 2020-01-31)
PROC: 0BH17EZ Insertion of Endotracheal Airway into Trachea, Via Natural or Artificial Opening (ICD-10-PCS; 2020-01-31)
PROC: 3E043XZ Introduction of Vasopressor into Central Vein, Percutaneous Approach (ICD-10-PCS; 2020-01-31)
PROC: 30243L1 Transfusion of Nonautologous Fresh Plasma into Central Vein, Percutaneous Approach (ICD-10-PCS; 2020-01-31)
PROC: 30243N1 Transfusion of Nonautologous Red Blood Cells into Central Vein, Percutaneous Approach (ICD-10-PCS; 2020-01-31)
PROC: 30243M1 Transfusion of Nonautologous Plasma Cryoprecipitate into Central Vein, Percutaneous Approach (ICD-10-PCS; 2020-01-31)
PROC: 30243K1 Transfusion of Nonautologous Frozen Plasma into Central Vein, Percutaneous Approach (ICD-10-PCS; 2020-01-31)
PROC: 0W9G3ZZ Drainage of Peritoneal Cavity, Percutaneous Approach (ICD-10-PCS; 2020-02-02)
PROC: BW40ZZZ Ultrasonography of Abdomen (ICD-10-PCS; 2020-02-02)
PROC: 0W9G3ZZ Drainage of Peritoneal Cavity, Percutaneous Approach (ICD-10-PCS; 2020-02-04)
PROC: 0W9G3ZZ Drainage of Peritoneal Cavity, Percutaneous Approach (ICD-10-PCS; 2020-02-07)
PROC: 0W9G3ZZ Drainage of Peritoneal Cavity, Percutaneous Approach (ICD-10-PCS; 2020-02-15)
PROC: 0W9G30Z Drainage of Peritoneal Cavity with Drainage Device, Percutaneous Approach (ICD-10-PCS; 2020-02-18)
PROC: 5A09457 Assistance with Respiratory Ventilation, 24-96 Consecutive Hours, Continuous Positive Airway Pressure (ICD-10-PCS; 2020-02-19)
PROC: 0JH83XZ Insertion of Tunneled Vascular Access Device into Abdomen Subcutaneous Tissue and Fascia, Percutaneous Approach (ICD-10-PCS; 2020-02-21)
PROC: 0WHG33Z Insertion of Infusion Device into Peritoneal Cavity, Percutaneous Approach (ICD-10-PCS; 2020-02-21)
DX: A41.51 Sepsis due to Escherichia coli [E. coli] (principal); R65.21 Severe sepsis with septic shock; J96.21 Acute and chronic respiratory failure with hypoxia; K72.00 Acute and subacute hepatic failure without coma; N17.0 Acute kidney failure with tubular necrosis; E87.2 Acidosis; D68.9 Coagulation defect, unspecified; D62 Acute posthemorrhagic anemia; K51.90 Ulcerative colitis, unspecified, without complications; J90 Pleural effusion, not elsewhere classified; E87.0 Hyperosmolality and hypernatremia; E46 Unspecified protein-calorie malnutrition; Z51.5 Encounter for palliative care; Z66 Do not resuscitate; Z20.828 Contact with and (suspected) exposure to other viral communicable diseases; E83.51 Hypocalcemia; D50.9 Iron deficiency anemia, unspecified; K21.9 Gastro-esophageal reflux disease without esophagitis; F10.10 Alcohol abuse, uncomplicated; Z68.30 Body mass index [BMI] 30.0-30.9, adult; K70.31 Alcoholic cirrhosis of liver with ascites; I48.0 Paroxysmal atrial fibrillation; E66.01 Morbid (severe) obesity due to excess calories; N18.9 Chronic kidney disease, unspecified; E87.6 Hypokalemia; E87.5 Hyperkalemia; R13.12 Dysphagia, oropharyngeal phase; Z79.899 Other long term (current) drug therapy
CPT/HCPCS: 31500; 36415; 36416; 36430; 36556; 49020; 49083; 51702; 70450; 71045; 71275; 74018; 74177; 77002; 80048; 80053; 80076; 80306; 81003; 81015; 82042; 82140; 82533; 82553; 82805; 83605; 83690; 83735; 83880; 84100; 84157; 84439; 84443; 84484; 85025; 85049; 85060; 85300; 85362; 85379; 85384; 85610; 85730; 86850; 86900; 86901; 87040; 87070; 87077; 87149; 87186; 87205; 87324; 87385; 87449; 87497; 87635; 89051; 93005; 93010; 93975; 94002; 94003; 94640; 94660; 96365; 96366; 96367; 96368; 96374; 96375; 96376; 99292; C9113; J0692; J0696; J1160; J1720; J1940; J2060; J2185; J2250; J2270; J2354; J2405; J2704; J2765; J3010; J3370; J3430; J3475; J3480; J3490; J7030; J7042; J7050; J7070; J7620; J7626; P9016; P9047; P9048; P9059; Q9967; U0003

== ENCOUNTER 2020-05-19 09:25 | Day surgery (SDC) | payer MEDICARE ==
[2020-05-18 14:38] VITALS: BMI 26.1
--- NOTE | 2020-05-19 11:04 | ULT ---
ULTRASOUND ABDOMEN LIMITED: Date: 05/19/2020 HISTORY: Assess for fluid. COMPARISON: None. FINDINGS: No significant free fluid in the pelvis or abdomen. IMPRESSION: No significant free fluid. POS: AH
[2020-05-19 14:01] VITALS: BP 124/90; TEMP 98.2
== END 2020-05-19 12:00 | disposition home or self-care (01) ==
LOC: SPEC 09:25
PROVIDERS: ATTEND Internal Medicine
DX: K70.31 Alcoholic cirrhosis of liver with ascites (principal); I85.10 Secondary esophageal varices without bleeding; K51.90 Ulcerative colitis, unspecified, without complications; D64.9 Anemia, unspecified; E11.9 Type 2 diabetes mellitus without complications; I10 Essential (primary) hypertension; I48.91 Unspecified atrial fibrillation; F17.290 Nicotine dependence, other tobacco product, uncomplicated; Z79.899 Other long term (current) drug therapy
CPT/HCPCS: 76705; 90471; 90732; G0009